=== PATIENT | female | born 1965 | race Caucasian/White ===

== ENCOUNTER 2019-02-22 09:15 | Outpatient (RCR) | payer OTHER, SELFPAY ==
--- NOTE | 2019-02-14 13:14 | HP.PCM_ITS ---
(1) Allergic contact dermatitis Status: Acute Current Visit: Yes Code(s): L23.9 - Allergic contact dermatitis, unspecified cause (2) Psoriasis Status: Chronic Current Visit: Yes Code(s): L40.9 - Psoriasis, unspecified (3) Bilateral lower extremity edema Status: Chronic Current Visit: Yes Code(s): R60.0 - Localized edema (4) PVD (peripheral vascular disease) Status: Chronic Current Visit: Yes Code(s): I73.9 - Peripheral vascular disease, unspecified History of Present Illness Date of Service: 02/14/19 Chief Complaint: Rash and drainage from legs History of Wound: Patient is a pleasant 53-year-old female who presents to the clinic today 02/14/2019 with complaint of rash, swelling, and drainage from bilateral legs, for [facility]. She was self- referred to the wound center. Patient reports she has been seeing dermatology for several years. She sees Dr. Malave (derm) in [place], [place]. He has been treating her with a topical ointment and topical lotion for chronic psoriasis of bilateral lower extremities. Approximately 3 months ago (~October 2018) patient developed increasing erythema and swelling in bilateral lower extremities. She saw her primary care provider, Dr. Art, regarding this complaint, and was given triple antibiotic ointment and instructed to apply this 1-2 times daily, and cover with gauze. As her symptoms persisted, she went to her impregnating tank operator's office and saw the nurse practitioner there, and was told to wear compression stockings. Patient is currently using SARA to bilateral lower extremities 1-2 times daily, and covering with gauze. In the last several weeks, she has had to change her dressings about 2-3 times daily due to weeping from bilateral lower extremities. She reports the drainage is clear and odorless. She denies any pain in her bilateral lower extremities, but reports intense itching of bilateral lower extremities. The patient otherwise denies any fever, chills, nausea, vomiting, or diarrhea. Aside from her psoriasis, patient denies any other chronic disease or illness. She has not had any recent lab work in the last couple of years. She reports she is a nondiabetic. Past Medical History Past Medical History: Chronic Problems Bilateral lower extremity edema (Chronic) Psoriasis (Chronic) PVD (peripheral vascular disease) (Chronic) Surgical History: dilatation and curettage Allergies/Adverse Reactions: Allergies levofloxacin [From Levaquin] Allergy (Verified 02/15/19 10:34) Other naproxen Allergy (Verified 02/15/19 10:34) Other Penicillins Allergy (Verified 02/15/19 10:34) Other Home Medications: Ambulatory Orders Medication Instructions Recorded Ibuprofen 200 mg PO PRN PRN 02/22/19 triamcinolone acetonide 0.5 % 1 applic TOPICAL .COMPLEX #45 g 02/22/19 topical ointment Smoking Status: Never smoker Tobacco Use: Non-smoker Review of Systems Constitutional: Denies: Chills, Fever, Night Sweats, Weakness, Weight Change Cardiovascular: Reports: Edema. Denies: Chest Pain, Palpitations Respiratory: Denies: Cough, Shortness of Breath, Wheezing Gastrointestinal: Denies: Diarrhea, Nausea, Vomiting Genitourinary: Denies: Dysuria, Hematuria Musculoskeletal: Denies: Joint stiffness, Joint swelling, Leg Pain, Muscle pain Skin: Reports: Pruritis, Rash, Skin Changes Neurological: Denies: Numbness, Tingling Endocrine: Denies: Heat/ Cold Intolerance, Polydipsia, Polyuria Hematologic/ Lymphatic: Denies: Easy Bruising, Easy Bleeding - Physical Exam General: Alert, Oriented x3, Cooperative, No apparent distress HEENT: Atraumatic, EOMI, Normocephalic Oral: Moist Mucosa Neck: Supple, No JVD, Trachea Midline Lungs: Clear to auscultation, Normal air movement, No rhonchi, No wheeze, No rales Cardiovascular: Regular rate, Regular Rhythm Abdomen: Bowel Sounds Present, Soft, Non Tender, Obese Extremities: No clubbing, No cyanosis, Capillary Refill Less than 3 Seconds, No Calf Tenderness, Edema - 1+ pitting edema b/l; varicosities of BLE, Peripheral Pulses Normal Skin: Rash Present - Psoriatic plaque of bilateral knees, silver and scaly in appearance. Suspected contact dermatitis of bilateral lower extremities. Contact dermatitis is near circumferential on bilateral legs. Contact dermatitis is bright red in color, with excoriation. Areas of contact dermatitis are clearly demarcated, with clear margins at sites where dressings were previously placed. There is 1+ pitting edema of bilateral lower extremities, with clear drainage from bilateral legs. No tenderness on palpation. Bilateral lower extremities are warm to touch. No foul odor, or purulent drainage. There are no open wounds or ulcerations., Excoriated Musculoskeletal: No Tenderness to Palpation of Joints or Extremities Neurological: Neuro grossly intact Psych/Mental Status: Normal Affect, Appropriate Assessment/Plan See plan below Active Problems Bilateral lower extremity edema (Chronic) Allergic contact dermatitis (Acute) Psoriasis (Chronic) PVD (peripheral vascular disease) (Chronic) Elevated hemoglobin A1c (Acute) Assessment: See above diagnoses Plan: No debridement performed today in clinic. Bilateral Unna boots applied in office today. At home wound-care instructions: Patient is to leave Unna boots in place until her nurse visit at the [facility] on Monday. She is instructed not to get Unna boots wet. If Unna boots begin to slip or fall down on legs, she is to contact the [facility] for further instructions. Off-loading: Patient is to keep bilateral legs elevated as much as possible. She is to avoid long periods of standing. She is instructed to sleep in a bed with feet at or above chest level. Diet: Patient encouraged to increase protein and vitamin C intake while taking caution to avoid high carbohydrate and/or sugar intake. Labs/cultures/imaging: Routine baseline labwork ordered. Vascular studies deferred for the time being, due to the extent of swelling, rash, and excoriation of bilateral lower extremities. Will consider the necessity of vascular studies as patient progresses. Follow-up: Return to the [facility] on Monday for a nurse visit to have Unna boots changed. Return to the clinic on 02/22/2019 for evaluation with provider. Contact the [facility]aling [facility] or follow-up sooner if you develop any worsening signs or symptoms. Code Visit Office Visits / Consults: [id number] OV L4 New
[2019-02-14 13:19] VITALS: BP 136/73; PULSE 79; RESP 18; TEMP 36.7; BMI 61.9
[2019-02-14 17:47] LABS: Hematocrit 47.5 % (37-47); Hemoglobin 14.4 g/dL (12.0-15.0); Hemoglobin A1c 6.5 % (4.2-6.3); Mean Corp Hgb Conc 30.3 g/dL (32-36); Mean Corpuscular Hgb 28.9 pg (27.0-32.0); Mean Corpuscular Volume 95.4 fL (81-99); Mean Platelet Vol. 10.2 fl (6.2-12.0); Platelet Count 397 K/mm3 (150-450); RBC Distribution Width CV 14.5 % (11.6-14.6); RBC Distribution Width SD 50.3 fl (35.1-43.9); Red Blood Count 4.98 M/mm3 (4.2-5.4); White Blood Count 7.3 K/mm3 (4.4-11.0)
[2019-02-14 18:00] LABS: ALB/GLOB Ratio 0.8 RATIO (0.9-2.4); AST(SGOT) 23 U/L (15-37); Alanine Aminotransfer ALT/SGPT 31 U/L (13-56); Albumin, Serum 3.7 g/dL (3.2-5.0); Alkaline Phosphatase 84 U/L (45-117); Anion Gap 5 (5-15); BUN 16 mg/dL (7-18); Calcium,Total 10.1 mg/dL (8.5-10.1); Chloride 103 mmol/L (98-107); Creatinine, Serum 0.94 mg/dL (0.55-1.02); EST Glomerular Filtration Rate 66 mL/min (>60); Erythrocyte Sedimentation Rate 10 mm/hr (0-30); Est Glom Filt Rate - Afr Amer 80 mL/min (>60); Globulin 4.5 g/dL (2.2-4.2); Glucose 90 mg/dL (74-106); Prealbumin 24.1 mg/dL (20.0-40.0); Protein, Total 8.2 g/dL (6.4-8.2); Sodium Level 139 mmol/L (136-145)
[2019-02-18 16:03] VITALS: BP 114/75; PULSE 69; RESP 18; TEMP 36.3; BMI 61.9
[2019-02-22 09:33] VITALS: BP 154/72; PULSE 89; RESP 18; TEMP 35.4; BMI 61.9
--- NOTE | 2019-02-22 10:00 | PN.PCM_ITS ---
(1) Allergic contact dermatitis Status: Acute Current Visit: Yes Code(s): L23.9 - Allergic contact dermatitis, unspecified cause (2) Psoriasis Status: Chronic Current Visit: Yes Code(s): L40.9 - Psoriasis, unspecified (3) Bilateral lower extremity edema Status: Chronic Current Visit: Yes Code(s): R60.0 - Localized edema (4) PVD (peripheral vascular disease) Status: Chronic Current Visit: Yes Code(s): I73.9 - Peripheral vascular disease, unspecified (5) Elevated hemoglobin A1c Status: Acute Current Visit: Yes Code(s): R73.09 - Other abnormal glucose Type of Wound Date of Service: 02/22/19 Chief Complaint: Rash and drainage from legs History of Wound: Patient is a pleasant 53-year-old female who presents to the clinic today 02/14/2019 with complaint of rash, swelling, and drainage from bilateral legs, for initial [facility] evaluation. She was self- referred to the wound center. Patient reports she has been seeing dermatology for several years. She sees Dr. Malave (derm) in [place], [place]. He has been treating her with a topical ointment and topical lotion for chronic psoriasis of bilateral lower extremities. Approximately 3 months ago (~October 2018) patient developed increasing erythema and swelling in bilateral lower extremities. She saw her primary care provider, Dr. Art, regarding this complaint, and was given triple antibiotic ointment and instructed to apply this 1-2 times daily, and cover with gauze. As her symptoms persisted, she went to her division human resources manager's office and saw the nurse practitioner there, and was told to wear compression stockings. Patient is currently using SARA to bilateral lower extremities 1-2 times daily, and covering with gauze. In the last several weeks, she has had to change her dressings about 2-3 times daily due to weeping from bilateral lower extremities. She reports the drainage is clear and odorless. She denies any pain in her bilateral lower extremities, but reports intense itching of bilateral lower extremities. The patient otherwise denies any fever, chills, nausea, vomiting, or diarrhea. Aside from her psoriasis, patient denies any other chronic disease or illness. She has not had any recent lab work in the last couple of years. She reports she is a nondiabetic. Progress of Wound: Areas of redness and excoriation are improving in severity, but remain relatively unchanged in size. Itching is slightly improved but still persistent. Patient has been compliant with use of Unna boots, and reports doing well with compression without any complications. Drainage from bilateral lower extremities has decreased, and legs have become more dry and scaly. The patient otherwise denies any fever, chills, nausea, vomiting, or diarrhea. Denies any signs of infection, including increasing pain, redness, swelling, or purulent/foul?smelling drainage from affected area. - Physical Exam Vital Signs Temp Pulse Resp BP 95.7 F L 89 18 154/72 H 02/22/19 09:33 02/22/19 09:33 02/22/19 09:33 02/22/19 09:33 General: Alert, Oriented x3, Cooperative, No apparent distress HEENT: Atraumatic, EOMI, Normocephalic Oral: Moist Mucosa Extremities: No clubbing, No cyanosis, Capillary Refill Less than 3 Seconds, No Calf Tenderness, Edema - Trace edema of bilateral lower extremities; varicosities of BLE, Peripheral Pulses Normal Skin: Rash Present - Psoriatic plaque of bilateral knees, silvery and scaly in appearance. Suspected contact dermatitis of bilateral lower extremities. Rash is pink to bright red in color, with excoriation. Rash and excoriation is near circumferential on bilateral legs. Areas of contact dermatitis are clearly demarcated with clear margins at sites where dressings were previously placed. No active drainage from either lower extremity. No tenderness on palpation. No warmth to touch, no foul odor, no purulent drainage. No open wounds or ulcerations. Skin is dry and flaky on bilateral lower extremities. Wound Measurements and Assessment WC - Nurse 1 - General Ulcer Measurement Start: 02/14/19 13:17 Freq: Status: Active Protocol: Activity Type Activity Date Activity User E-Sign Co-Sign Detail Recorded Client Recorded Date Recorded By Document 02/22/19 09:33 JF [id number] 02/22/19 09:34 JF 02/22/19 09:33 Wound Center Nurse 1 [Ulcer Assessment] #2 LLE CLUSTER -Combined with other wound No -Current Size (cm) - Length 0.1 -Current Size (cm) - Width 0.1 -Current Size (cm) - Depth 0.1 -Total Square Cm 0.01 -Photo Taken No -Epithelialization Large 67-100% #1 RLE CLUSTER -Combined with other wound No -Current Size (cm) - Length 0.1 -Current Size (cm) - Width 0.1 -Current Size (cm) - Depth 0.1 -Total Square Cm 0.01 -Photo Taken No -Epithelialization Large 67-100% [Edema Assessment] -Lower Limb Edema Present Yes -Right Calf (cm) 53.8 -Right Ankle (cm) 29.7 -Left Calf (cm) 55.7 -Left Ankle (cm) 32.2 WC - Nurse 2 - General Ulcer CM Notes Start: 02/14/19 13:17 Freq: Status: Active Protocol: Activity Type Activity Date Activity User E-Sign Co-Sign Detail Recorded Client Recorded Date Recorded By Document 02/22/19 09:44 CECIL [id number] 02/22/19 09:45 02/22/19 09:44 Wound Center Nurse 2 [Procedure/Treatment] #2 LLE CLUSTER -Correct Patient No -Correct Side, Site, Position No -Correct Procedure No -Procedure Performed No -Wound/Ulcer Outcome Not Healed #1 RLE CLUSTER -Correct Patient No -Correct Side, Site, Position No -Correct Procedure No -Procedure Performed No -Wound/Ulcer Outcome Not Healed [See Physician Procedure note for Specifics] Pain Scale: 0-10 Numeric [Pain] -Is Patient Pain Free? Yes Neurological: Neuro grossly intact Psych/Mental Status: Normal Affect, Appropriate Debridement Note Post-Debridement Measurements/Treatment WC - Nurse 2 - General Ulcer CM Notes Start: 02/14/19 13:17 Freq: Status: Active Protocol: Activity Type Activity Date Activity User E-Sign Co-Sign Detail Recorded Client Recorded Date Recorded By Document 02/14/19 14:04 DV [id number] 02/14/19 14:24 DV Document 02/22/19 09:44 JF [id number] 02/22/19 09:45 02/14/19 02/22/19 14:04 09:44 Wound Center Nurse 2 #2 LLE CLUSTER -Correct Patient No -Correct Side, Site, Position No -Correct Procedure No -Procedure Performed No -Wound/Ulcer Outcome Not Healed #1 RLE CLUSTER -Correct Patient No -Correct Side, Site, Position No -Correct Procedure No -Procedure Performed No -Wound/Ulcer Outcome Not Healed Pain Scale: 0-10 Numeric Is Patient Pain Free? Yes Yes Assessment/Plan Active Problems Bilateral lower extremity edema (Chronic) Allergic contact dermatitis (Acute) Psoriasis (Chronic) PVD (peripheral vascular disease) (Chronic) Elevated hemoglobin A1c (Acute) Assessment: See above diagnoses Plan: No debridement performed today in clinic. Bilateral stockinettes and compression with Anatoly bandages applied in office today, from toes to knee. At home wound-care instructions: Patient instructed to apply triamcinolone 0.5% ointment to bilateral lower extremities 1-2 times daily, covering with stockinette and Anatoly bandage for compression (eRx sent). Patient instructed to apply a thin layer to the affected areas. Patient may remove dressings to shower, and then reapply. Off-loading: Patient is to keep bilateral legs elevated as much as possible. She is to avoid long periods of standing. She is instructed to sleep in a bed with feet at or above chest level. Diet: Patient encouraged to increase protein and vitamin C intake while taking caution to avoid high carbohydrate and/or sugar intake. Discussed patient's A1c of 6.5% today at visit. Patient encouraged to follow-up with her primary care provider for further evaluation/monitoring/intervention. Labs/cultures/imaging: Routine baseline labwork viewed with patient. CRP elevated, A1c elevated. Recommended follow-up with PCP and division human resources manager. Vascular studies deferred for the time being, due to the extent of swelling, rash, and excoriation of bilateral lower extremities. Will consider the necessity of vascular studies as patient progresses. Follow-up: Return to the [facility] next for a follow-up visit. Contact the [facility]aling Center or follow-up sooner if you develop any new or worsening signs or symptoms. Code Visit Office Visits / Consults: [id number] OV L3 Est
== END 2019-02-26 23:59 ==
LOC: WC 09:15
PROVIDERS: Family Provider Family Medicine; PCP Family Medicine; Visit Provider Nurse Practitioner Family
DX: L23.9 Allergic contact dermatitis, unspecified cause (principal); L40.9 Psoriasis, unspecified; R60.0 Localized edema; I73.9 Peripheral vascular disease, unspecified; I87.2 Venous insufficiency (chronic) (peripheral); R79.82 Elevated C-reactive protein (CRP)
CPT/HCPCS: 29580; 36415; 80053; 83036; 84134; 85027; 85652; 86140; 99213; G0463

== ENCOUNTER 2019-03-15 09:00 | Outpatient (RCR) | payer OTHER, SELFPAY ==
[2019-02-27 01:08] VITALS: BP 154/72; PULSE 89; RESP 18; TEMP 35.4
[2019-02-28 14:29] VITALS: BP 145/82; PULSE 69; RESP 20; TEMP 36.3; BMI 61.9
--- NOTE | 2019-02-28 15:47 | WC ---
triamcinolone 1 % ointment applied to reddened areas coton liner applied then leah bilat applied
--- NOTE | 2019-02-28 17:07 | PCM.WC.PN ---
(1) Allergic contact dermatitis Status: Acute Current Visit: Yes Code(s): L23.9 - Allergic contact dermatitis, unspecified cause (2) PVD (peripheral vascular disease) Status: Chronic Current Visit: Yes Code(s): I73.9 - Peripheral vascular disease, unspecified (3) Psoriasis Status: Chronic Current Visit: Yes Code(s): L40.9 - Psoriasis, unspecified Type of Wound Date of Service: 02/28/19 Chief Complaint: Rash and drainage from legs History of Wound: Patient is a pleasant 53-year-old female who presents to the clinic 02/14/2019 with complaint of rash, swelling, and drainage from bilateral legs, for initial [facility] evaluation. She was self-referred to the wound center. Patient reports she has been seeing dermatology for several years. She sees Dr. Malave (derm) in [place], [place]. He has been treating her with a topical ointment and topical lotion for chronic psoriasis of bilateral lower extremities. Approximately 3 months ago (~October 2018) patient developed increasing erythema and swelling in bilateral lower extremities. She saw her primary care provider, Dr. Art, regarding this complaint, and was given triple antibiotic ointment and instructed to apply this 1-2 times daily, and cover with gauze. As her symptoms persisted, she went to her criminal justice teacher's office and saw the nurse practitioner there, and was told to wear compression stockings. Patient is currently using SARA to bilateral lower extremities 1-2 times daily, and covering with gauze. In the last several weeks, she has had to change her dressings about 2-3 times daily due to weeping from bilateral lower extremities. She reports the drainage is clear and odorless. She denies any pain in her bilateral lower extremities, but reports intense itching of bilateral lower extremities. The patient otherwise denies any fever, chills, nausea, vomiting, or diarrhea. Aside from her psoriasis, patient denies any other chronic disease or illness. She has not had any recent lab work in the last couple of years. She reports she is a nondiabetic. Progress of Wound: Areas of redness and excoriation are greatly improved. Itching has also resolved. Patient has been compliant with use of triamcinolone ointment and reports doing well with compression without any complications. Drainage from bilateral lower extremities has resolved, as well as dryness and scaliness. Patient brought her topical medications from home, which include triamcinolone 0.1% ointment, and HPR+ cream. The patient denies any fever, chills, nausea, vomiting, or diarrhea. Denies any signs of infection, including increasing pain, redness, swelling, or purulent/foul?smelling drainage from affected area. - Physical Exam Vital Signs Temp Pulse Resp BP 97.3 F L 69 20 H 145/82 H 02/28/19 14:29 02/28/19 14:29 02/28/19 14:29 02/28/19 14:29 General: Alert, Oriented x3, Cooperative, No apparent distress HEENT: Atraumatic, EOMI, Normocephalic Oral: Moist Mucosa Extremities: No clubbing, No cyanosis, No Calf Tenderness, Edema - Trace edema bilateral lower extremities, Peripheral Pulses Normal Skin: No breakdown, Excoriated - Excoriation is greatly improved, and nearly resolved. The affected areas of her bilateral lower extremities now demonstrate hemosiderin staining. There are no open wounds on bilateral lower extremities. There is no drainage from either lower extremity. Wound Measurements and Assessment WC - Nurse 1 - General Ulcer Measurement Start: 02/28/19 14:29 Freq: Status: Active Protocol: Activity Type Activity Date Activity User E-Sign Co-Sign Detail Recorded Client Recorded Date Recorded By Document 02/28/19 14:29 [facility] [id number] 02/28/19 14:34 [facility] 02/28/19 14:29 Wound Center Nurse 1 [Edema Assessment] -Lower Limb Edema Present Yes -Right Calf (cm) 52.6 -Right Ankle (cm) 29.6 -Left Calf (cm) 55.5 -Left Ankle (cm) 31.4 Musculoskeletal: No Tenderness to Palpation of Joints or Extremities Neurological: Neuro grossly intact Psych/Mental Status: Normal Affect, Appropriate Assessment/Plan Active Problems Allergic contact dermatitis (Acute) Psoriasis (Chronic) PVD (peripheral vascular disease) (Chronic) Assessment: See above diagnoses Plan: No debridement performed today in clinic due to the absence of any open wounds. Triamcinolone 0.1% ointment applied to bilateral legs. Bilateral stockinettes and compression with Anatoly bandages applied in office today, from toes to knee. At home wound-care instructions: Patient instructed to apply triamcinolone 0.5% ointment to bilateral lower extremities 1-2 times daily x 1 more week, covering with stockinette and Anatoly bandage for compression (eRx sent). Patient instructed to apply a thin layer to the affected areas. Patient may remove dressings to shower, and then reapply. After 1 week, she is to stop topical steroids and start HPR+ cream daily. Off-loading: Patient is to keep bilateral legs elevated as much as possible. She is to avoid long periods of standing. She is instructed to sleep in a bed with feet at or above chest level. Diet: Patient encouraged to increase protein and vitamin C intake while taking caution to avoid high carbohydrate and/or sugar intake. Previously discussed patient's A1c of 6.5% and patient encouraged to follow-up with her primary care provider for further evaluation/monitoring/intervention. Labs/cultures/imaging: Routine baseline labwork previously reviewed with patient. CRP elevated, A1c elevated. Recommended follow-up with PCP and criminal justice teacher. Patient has not yet scheduled an appointment with dermatology. Vascular and arterial studies ordered today. Follow-up: Return to the [facility] in 2 weeks for a follow-up visit. Contact the W[facility]aling Center or follow-up sooner if you develop any new or worsening signs or symptoms, or should you have any questions. Note: [employer] speech recognition levers lace machine operator software was used to create portions of this document. Sound-alike and misspelled words, as well as other levers lace machine operator errors may be contained in the documentation. Code Visit Office Visits / Consults: [id number] OV L3 Est
[2019-03-15 09:09] VITALS: BP 143/88; PULSE 85; RESP 16; TEMP 36; BMI 61.9
--- NOTE | 2019-03-15 13:06 | PN.PCM_ITS ---
(1) Excoriation of left lower leg Status: Acute Current Visit: Yes Qualifiers: Encounter type: initial encounter Qualified Code(s): S80.812A - Abrasion, left lower leg, initial encounter Code(s): S80.812A - Abrasion, left lower leg, initial encounter (2) Allergic contact dermatitis Status: Resolved Current Visit: Yes Code(s): L23.9 - Allergic contact dermatitis, unspecified cause (3) PVD (peripheral vascular disease) Status: Chronic Current Visit: Yes Code(s): I73.9 - Peripheral vascular disease, unspecified (4) Psoriasis Status: Chronic Current Visit: Yes Code(s): L40.9 - Psoriasis, unspecified Type of Wound Date of Service: 03/15/19 Chief Complaint: Rash and drainage from legs History of Wound: Patient is a pleasant 53-year-old female who presents to the clinic 02/14/2019 with complaint of rash, swelling, and drainage from bilateral legs, for initial [facility] evaluation. She was self-referred to the wound center. Patient reports she has been seeing dermatology for several years. She sees Dr. Malave (derm) in [place], [place]. He has been treating her with a topical ointment and topical lotion for chronic psoriasis of bilateral lower extremities. Approximately 3 months ago (~October 2018) patient developed increasing erythema and swelling in bilateral lower extremities. She saw her primary care provider, Dr. Art, regarding this complaint, and was given triple antibiotic ointment and instructed to apply this 1-2 times daily, and cover with gauze. As her symptoms persisted, she went to her special forces engineer sergeant's office and saw the nurse practitioner there, and was told to wear compression stockings. Patient is currently using SARA to bilateral lower extremities 1-2 times daily, and covering with gauze. In the last several weeks, she has had to change her dressings about 2-3 times daily due to weeping from bilateral lower extremities. She reports the drainage is clear and odorless. She denies any pain in her bilateral lower extremities, but reports intense itching of bilateral lower extremities. The patient otherwise denies any fever, chills, nausea, vomiting, or diarrhea. Aside from her psoriasis, patient denies any other chronic disease or illness. She has not had any recent lab work in the last couple of years. She reports she is a nondiabetic. Progress of Wound: Areas of redness and excoriation are greatly improved. Itching is also greatly improved. Patient has been compliant with course of triamcinolone ointment, which is now completed. She has resumed using HPR+ cream 1-2 times daily. She reports doing well with compression stockings without any complications. Drainage from bilateral lower extremities has resolved, mild dryness and scaliness of lower extremities persists. The patient was scheduled to have her vascular studies completed today, but changed her appointment because she felt it would conflict with her wound center appointment, despite our previous discussion that she should just arrive to the wound center as soon as possible following the completion of her vascular studies. They are now scheduled for next week. The patient has also not scheduled an appointment with her special forces engineer sergeant for follow-up, as previously discussed numerous times. The patient denies any fever, chills, nausea, vomiting, or diarrhea. Denies any signs of infection, including increasing pain, redness, swelling, or purulent/foul?smelling drainage from affected area. She does have a small area of excoriation to her left posterior lower leg, which she reports developed yesterday. - Physical Exam Vital Signs Temp Pulse Resp BP 96.8 F L 85 16 143/88 H 03/15/19 09:09 03/15/19 09:09 03/15/19 09:09 03/15/19 09:09 General: Alert, Oriented x3, No apparent distress HEENT: Atraumatic, EOMI, Normocephalic Oral: Moist Mucosa Neck: Supple, Trachea Midline Lungs: Normal air movement Cardiovascular: Regular rate Extremities: No clubbing, No cyanosis, Capillary Refill Less than 3 Seconds, Edema - 1+ pitting edema in bilateral lower extremities, Peripheral Pulses Normal - . Skin: Excoriated - Small area of excoriation to left posterior lower leg. No drainage, no warmth or tenderness to touch. Wound Measurements and Assessment WC - Nurse 1 - General Ulcer Measurement Start: 02/28/19 14:29 Freq: Status: Active Protocol: Activity Type Activity Date Activity User E-Sign Co-Sign Detail Recorded Client Recorded Date Recorded By Document 03/15/19 09:09 [facility] [id number] 03/15/19 09:11 [facility] 03/15/19 09:09 Wound Center Nurse 1 [Edema Assessment] -Lower Limb Edema Present Yes -Right Calf (cm) 52.5 -Right Ankle (cm) 28 -Left Calf (cm) 56 -Left Ankle (cm) 30.4 WC - Nurse 2 - General Ulcer CM Notes Start: 02/28/19 14:29 Freq: Status: Active Protocol: Activity Type Activity Date Activity User E-Sign Co-Sign Detail Recorded Client Recorded Date Recorded By Document 03/15/19 09:59 DV [id number] 03/15/19 10:00 DV 03/15/19 09:59 Pain Scale: 0-10 Numeric [Pain] -Is Patient Pain Free? Yes Musculoskeletal: No Tenderness to Palpation of Joints or Extremities Neurological: Neuro grossly intact Psych/Mental Status: Normal Affect, Appropriate Debridement Note Post-Debridement Measurements/Treatment WC - Nurse 2 - General Ulcer CM Notes Start: 02/28/19 14:29 Freq: Status: Active Protocol: Activity Type Activity Date Activity User E-Sign Co-Sign Detail Recorded Client Recorded Date Recorded By Document 03/15/19 09:59 DV [id number] 03/15/19 10:00 DV 03/15/19 09:59 Pain Scale: 0-10 Numeric Is Patient Pain Free? Yes Assessment/Plan Active Problems Psoriasis (Chronic) PVD (peripheral vascular disease) (Chronic) Excoriation of left lower leg (Acute) Assessment: See above diagnoses Plan: No debridement performed today in clinic due to the absence of any open wounds. Small area of excoriation on left posterior lower leg covered with Adaptic. Compression stockings applied. At home wound-care instructions: Apply Adaptic dressing to area of excoriation on left posterior lower leg, change daily. Apply HPR+ cream to bilateral legs 2-3 times per day, avoiding area of excoriation. Patient may remove dressings to shower, and then reapply. Off- loading: Patient is to keep bilateral legs elevated as much as possible. She is to avoid long periods of standing or dangling legs. She is instructed to sleep in a bed with feet at or above chest level. Diet: Patient encouraged to increase protein and vitamin C intake while taking caution to avoid high carbohydrate and/or sugar intake. Previously discussed patient's A1c of 6.5% and patient encouraged to follow-up with her primary care provider for further evaluation/monitoring/intervention. Labs/cultures/imaging: Routine baseline labwork previously reviewed with patient. CRP elevated, A1c elevated. Recommended follow-up with PCP and special forces engineer sergeant. Patient has not yet scheduled an appointment with dermatology. Vascular studies ordered-- Patient re- scheduled for next week. Follow-up: Return to the Wound Healing Center in 2 weeks for a follow-up visit. Contact the Wound Healing Center or follow-up sooner if you develop any new or worsening signs or symptoms, or should you have any questions. Note: [employer] speech recognition assembler plastic boat software was used to create portions of this document. Sound-alike and misspelled words, as well as other assembler plastic boat errors may be contained in the documentation. Code Visit Office Visits / Consults: 12555 OV L3 Est
== END 2019-03-29 23:59 ==
LOC: WC 09:00
PROVIDERS: Family Provider Family Medicine; PCP Family Medicine; Visit Provider Nurse Practitioner Family
DX: I73.9 Peripheral vascular disease, unspecified (principal); L23.9 Allergic contact dermatitis, unspecified cause; L40.9 Psoriasis, unspecified; S80.812A Abrasion, left lower leg, initial encounter; X58.XXXA Exposure to other specified factors, initial encounter
CPT/HCPCS: 99213; G0463

== ENCOUNTER 2019-09-19 12:00 | Outpatient (RCR) | payer OTHER, SELFPAY ==
[2019-09-12 10:23] VITALS: BP 133/89; PULSE 82; RESP 16; TEMP 35.8; BMI 61.9
--- NOTE | 2019-09-12 12:35 | HP.PCM_ITS ---
(1) Ulcer of right lower extremity Status: Chronic Current Visit: Yes Qualifiers: Non-pressure ulcer stage: limited to breakdown of skin Qualified Code(s): L97.911 - Non-pressure chronic ulcer of unspecified part of right lower leg limited to breakdown of skin Code(s): L97.919 - Non-pressure chronic ulcer of unspecified part of right lower leg with unspecified severity (2) Elevated hemoglobin A1c Status: Chronic Current Visit: Yes Code(s): R73.09 - Other abnormal glucose (3) Bilateral lower extremity edema Status: Chronic Current Visit: Yes Code(s): R60.0 - Localized edema History of Present Illness Date of Service: 09/12/19 Chief Complaint: Non healing right leg ulcer History of Wound: Ms. Lopez is a 53-year-old who presents to the wound center due to nonhealing right lower extremity ulcer. Had a wound about 2 to 3 months ago, was seen by her primary care physician and started on antibiotics due to concern for infection. Patient however states that it worsened after the antibiotics and believes that she may have had a reaction to it. Has been applying bacitracin ointment with no significant improvement. At her last visit here, A1c done was 6.5 however she has had no follow-up and is currently not on any treatment for diabetes mellitus. Past Medical History Past Medical History: Chronic Problems Bilateral lower extremity edema (Chronic) Psoriasis (Chronic) PVD (peripheral vascular disease) (Chronic) Elevated hemoglobin A1c (Chronic) Ulcer of right lower extremity (Chronic) Surgical History: dilatation and curettage Allergies/Adverse Reactions: Allergies levofloxacin [From Levaquin] Allergy (Verified 02/15/19 10:34) Other naproxen Allergy (Verified 02/15/19 10:34) Other Penicillins Allergy (Verified 02/15/19 10:34) Other Home Medications: Ambulatory Orders Medication Instructions Recorded Ibuprofen 200 mg PO PRN PRN 02/22/19 triamcinolone acetonide 0.5 % 1 applic TOPICAL .COMPLEX #45 g 02/22/19 topical ointment Smoking Status: Never smoker Review of Systems Constitutional: Denies: Anorexia, Chills, Night Sweats, Malaise Eyes: Denies: Blurred vision, Pain, Redness HEENT: Denies: Difficulty Hearing, Difficulty Swallowing Cardiovascular: Denies: Chest Pain, Chest Pressure, Chest Tightness Respiratory: Denies: Cough, Hemoptysis Gastrointestinal: Denies: Abdominal Pain, Hematemesis, Vomiting Genitourinary: Denies: Hematuria Skin: Denies: Jaundice - Physical Exam Vital Signs Temp Pulse Resp BP 96.4 F L 82 16 133/89 H 09/12/19 10:23 09/12/19 10:23 09/12/19 10:23 09/12/19 10:23 General: Alert, Oriented x3, Cooperative, No apparent distress HEENT: Atraumatic, Normocephalic Oral: Moist Mucosa Lungs: Normal air movement Cardiovascular: Regular rate, Regular Rhythm, Normal S1, Normal S2 Abdomen: Non Tender, Obese Extremities: No edema, Edema Skin: Ulcer/ Wound Wound Measurements and Assessment WC - Nurse 1 - General Ulcer Measurement Start: 09/12/19 10:23 Freq: Status: Active Protocol: Activity Type Activity Date Activity User E-Sign Co-Sign Detail Recorded Client Recorded Date Recorded By Document 09/12/19 10:23 [id number] 09/12/19 10:36 09/12/19 10:23 Wound Center Nurse 1 [Ulcer Assessment] 3-right washburn cluster -Combined with other wound No -Current Size (cm) - Length 5 -Current Size (cm) - Width 5.0 -Current Size (cm) - Depth 0.1 -Total Square Cm 25.0 -Photo Taken Yes -Epithelialization Small 1-33% -Tunneling No -Undermining/Tunneling No -Circular Undermining No -Exudate Amt Medium -Exudate Type Serosanguineous -Wound Margin Flat & Intact -Granulation Amt Large (67-100%) -Granulation Quality Red -Slough/Fibrin Yes -Necrosis Amt Small (1-33%) -Necrotic Tissue Type Adherent Slough -Structure Exposed N/A -Texture (Bridgette-wound Skin Appearance) Assessed, Friable, Localized Edema -Moisture (Bridgette-wound Skin Appearance Assessed, ) Weeping -Color (Bridgette-wound Skin Appearance) Assessed, Hemosiderin Staining -Temperature (Bridgette-wound Skin No Abnormality Appearance) (Pt Warm) -Tenderness on Palpation (Bridgette-wound No Skin Appearance) -Ulcer Cleansing Wound Cleanser -Foul Odor after Cleansing No -Anesthetic Used 4% Lidocaine Solution [Edema Assessment] -Lower Limb Edema Present Yes -Right Calf (cm) 54.5 -Right Ankle (cm) 30.0 WC - Nurse 2 - General Ulcer CM Notes Start: 09/12/19 10:23 Freq: Status: Active Protocol: Activity Type Activity Date Activity User E-Sign Co-Sign Detail Recorded Client Recorded Date Recorded By Document 09/12/19 10:47 MW [id number] 09/12/19 10:56 MW 09/12/19 10:47 Wound Center Nurse 2 [Procedure/Treatment] 3-right washburn cluster -Time 10:52 -Correct Patient Yes -Correct Side, Site, Position Yes -Correct Procedure Yes -Procedure Performed Yes -Type of Procedure Debridement -Clinical Debridement Selective -Post Debridement Size (cm) - Length 9.0 -Post Debridement Size (cm) - Width 16.0 -Post Debridement Size (cm) - Depth 0.1 -Total Square Cm 144.00 -Wound/Ulcer Outcome Not Healed -Ulcer Cleansing Rinsed/ Irrigated with Saline -Foul Odor after Cleansing No -Bioengineered Tissue No -Bleeding Controlled with Pressure -Offloading No -Treatment Response Procedure Tolerated Well [See Physician Procedure note for Specifics] Pain Scale: 0-10 Numeric [Pain] -Is Patient Pain Free? Yes Musculoskeletal: No Muscle Wasting Neurological: Cranial nerves II-XII grossly intact Psych/Mental Status: Normal Affect Debridement Note Post-Debridement Measurements/Treatment WC - Nurse 2 - General Ulcer CM Notes Start: 09/12/19 10:23 Freq: Status: Active Protocol: Activity Type Activity Date Activity User E-Sign Co-Sign Detail Recorded Client Recorded Date Recorded By Document 09/12/19 10:47 MW [id number] 09/12/19 10:56 MW 09/12/19 10:47 Wound Center Nurse 2 3-right washburn cluster -Time 10:52 -Correct Patient Yes -Correct Side, Site, Position Yes -Correct Procedure Yes -Procedure Performed Yes -Type of Procedure Debridement -Clinical Debridement Selective -Post Debridement Size (cm) - Length 9.0 -Post Debridement Size (cm) - Width 16.0 -Post Debridement Size (cm) - Depth 0.1 -Total Square Cm 144.00 -Wound/Ulcer Outcome Not Healed -Ulcer Cleansing Rinsed/ Irrigated with Saline -Foul Odor after Cleansing No -Bioengineered Tissue No -Bleeding Controlled with Pressure -Offloading No -Treatment Response Procedure Tolerated Well Pain Scale: 0-10 Numeric Is Patient Pain Free? Yes Wound debrided: Right lower extremity Type of Debridement: Selective debridement Anesthesia Used: 4% Lidocaine Solution Depth: Down to and including healthy tissue Percentage of wound debrided: 100 Instrument Used: 5mm curette Tissue Removed: Devitalized tissue Severity: Limited To Skin Breakdown Amount of bleeding with debridement: Mild Bleeding Controlled with: Pressure Patient tolerated procedure well Assessment/Plan Active Problems Bilateral lower extremity edema (Chronic) Elevated hemoglobin A1c (Chronic) Ulcer of right lower extremity (Chronic) Assessment: Same as above Plan: Debridement done as documented above, procedure was well-tolerated. Cultures taken due to chronicity. Repeat A1c, CBC and CMP also ordered. For now, Aquacel extra, ABD and 3M wrap for edema management. Follow-up on Monday for nurse visit and in 1 week with me. Leg elevation, increase protein intake and exercise as tolerated also discussed. Her questions were answered and she was advised to call with any further questions or concerns. This note was generated with [employer] dictation software. It may contain incorrect words, spelling, and punctuation that were not noted in checking the note before signing. Multi Select Codes - Visit Charges Office Visit/Consults: 93096 OV L4 New - Integumentary Integumentary CPT Codes: 57811 Nancy subq tissue 20 sq cm/< - Superficial debridement completed today. Additional square centimeters debrided.
[2019-09-12 13:35] LABS: Absolute Lymphocyte Count 1.28 X10^3/uL (0.83-4.51); Absolute Neutrophil Count 4.9 X10^3/uL (2.0-7.7); Basophil# 0.06 X10^3/uL; Basophil% 0.9 % (0-1); Eosinophil# 0.19 X10^3/uL; Eosinophils% 2.7 % (0-5); Hematocrit 48.2 % (37-47); Hemoglobin 14.9 g/dL (12.0-15.0); Lymphocyte # 1.28 X10^3/ul (4.0); Lymphocyte % 18.3 % (19-41); Mean Corp Hgb Conc 30.9 g/dL (32-36); Mean Corpuscular Hgb 30.7 pg (27.0-32.0); Mean Corpuscular Volume 99.4 fL (81-99); Mean Platelet Vol. 10.5 fl (6.2-12.0); Monocyte# 0.53 X10^3/uL; Monocyte% 7.6 % (0-10); NRBC Flagged by Analyzer 0 % (0-5); Neutrophil # 4.91 X10^3/uL (2.7-7.7); Neutrophil % 70.4 % (47-70); Platelet Count 323 K/mm3 (150-450); RBC Distribution Width CV 14.5 % (11.6-14.6); RBC Distribution Width SD 52.3 fl (35.1-43.9); Red Blood Count 4.85 M/mm3 (4.2-5.4)
[2019-09-12 13:53] LABS: ALB/GLOB Ratio 0.9 RATIO (0.9-2.4); AST(SGOT) 17 U/L (15-37); Alanine Aminotransfer ALT/SGPT 33 U/L (13-56); Albumin, Serum 3.6 g/dL (3.2-5.0); Alkaline Phosphatase 95 U/L (45-117); Anion Gap 3 (5-15); BUN 23 mg/dL (7-18); BUN/Creat Ratio 27.7 RATIO (10-20); Calcium,Total 9.9 mg/dL (8.5-10.1); Chloride 107 mmol/L (98-107); Creatinine, Serum 0.83 mg/dL (0.55-1.02); EST Glomerular Filtration Rate 76 mL/min (>60); Est Glom Filt Rate - Afr Amer 92 mL/min (>60); Globulin 4.1 g/dL (2.2-4.2); Glucose 93 mg/dL (74-106); Potassium 4.2 mmol/L (3.5-5.1); Protein, Total 7.7 g/dL (6.4-8.2); Sodium Level 139 mmol/L (136-145)
[2019-09-12 14:05] LABS: Hemoglobin A1c 6.2 % (3.8-5.6)
--- NOTE | 2019-09-19 12:49 | PCM.WC.PN ---
(1) Ulcer of right lower extremity Status: Chronic Current Visit: Yes Qualifiers: Non-pressure ulcer stage: limited to breakdown of skin Qualified Code(s): L97.911 - Non-pressure chronic ulcer of unspecified part of right lower leg limited to breakdown of skin Code(s): L97.919 - Non-pressure chronic ulcer of unspecified part of right lower leg with unspecified severity (2) Elevated hemoglobin A1c Status: Chronic Current Visit: Yes Code(s): R73.09 - Other abnormal glucose (3) Bilateral lower extremity edema Status: Chronic Current Visit: Yes Code(s): R60.0 - Localized edema Type of Wound Date of Service: 09/19/19 Chief Complaint: Non healing right leg ulcer History of Wound: Ms. Lopez is a 53-year-old who presents to the wound center due to nonhealing right lower extremity ulcer. Had a wound about 2 to 3 months ago, was seen by her primary care physician and started on antibiotics due to concern for infection. Patient however states that it worsened after the antibiotics and believes that she may have had a reaction to it. Has been applying bacitracin ointment with no significant improvement. At her last visit here, A1c done was 6.5 however she has had no follow-up and is currently not on any treatment for diabetes mellitus. Progress of Wound: Telehealth visit conducted today. Patient's recently tested for COVID and is awaiting result. His family was advised to quadrant time. Patient took of her 3M wraps on Monday. Per patient, no significant improvement. Still has edema. She denies any other concerns. - Physical Exam Vital Signs Temp Pulse Resp BP 96.4 F L 82 16 133/89 H 09/12/19 10:23 09/12/19 10:23 09/12/19 10:23 09/12/19 10:23 General: Alert, Oriented x3, Cooperative, No apparent distress HEENT: Atraumatic, Normocephalic Oral: Moist Mucosa Neck: Supple Skin: Ulcer/ Wound Musculoskeletal: No Muscle Wasting Neurological: Cranial nerves II-XII grossly intact Psych/Mental Status: Normal Affect Debridement Note Post-Debridement Measurements/Treatment WC - Nurse 2 - General Ulcer CM Notes Start: 09/12/19 10:23 Freq: Status: Active Protocol: Activity Type Activity Date Activity User E-Sign Co-Sign Detail Recorded Client Recorded Date Recorded By Document 09/12/19 10:47 MW [id number] 09/12/19 10:56 MW 09/12/19 10:47 Wound Center Nurse 2 3-right washburn cluster -Time 10:52 -Correct Patient Yes -Correct Side, Site, Position Yes -Correct Procedure Yes -Procedure Performed Yes -Type of Procedure Debridement -Clinical Debridement Selective -Post Debridement Size (cm) - Length 9.0 -Post Debridement Size (cm) - Width 16.0 -Post Debridement Size (cm) - Depth 0.1 -Total Square (cm) 144.00 -Wound/Ulcer Outcome Not Healed -Ulcer Cleansing Rinsed/ Irrigated with Saline -Foul Odor after Cleansing No -Bioengineered Tissue No -Bleeding Controlled with Pressure -Offloading No -Treatment Response Procedure Tolerated Well Pain Scale: 0-10 Numeric Is Patient Pain Free? Yes No debridement was completed today - Telehealth visit. Assessment/Plan Active Problems Bilateral lower extremity edema (Chronic) Elevated hemoglobin A1c (Chronic) Ulcer of right lower extremity (Chronic) Assessment: Same as above Plan: Telehealth visit conducted today using [employer] due to event as above. No debridement was completed. Per patient, there has been no significant improvement. Has been applying wet-to-dry dressings. Will send supplies for Aquacel. Apply daily with gauze. Prescription for Doxycycline also sent per culture and sensitivity. Anatoly wraps for edema management. Continue leg elevation, increase protein intake and exercise as tolerated. Labs discussed with her. She was advised to follow-up with her PCP for borderline diabetes management. Her questions were answered and she was advised to call with any further questions or concerns. Follow-up in a week. This note was generated with [employer] dictation software. It may contain incorrect words, spelling, and punctuation that were not noted in checking the note before signing. Office Visits / Consults: 34743 OV L3 Est - Approximately 15 minutes spent during daily video visit ( Daniel payne ) today.
--- NOTE | 2019-09-20 14:02 | WC ---
Prescription for Doxycycline 100mg PO BID X 7 days was called in to [facility] Valerie [phone] Patient is aware of the prescription
== END 2019-09-27 23:59 ==
LOC: WC 12:00
PROVIDERS: PCP Family Medicine; Referring Provider Internal Medicine; Visit Provider Internal Medicine
DX: I73.9 Peripheral vascular disease, unspecified (principal); L97.811 Non-pressure chronic ulcer of other part of right lower leg limited to breakdown of skin; R73.09 Other abnormal glucose; R60.0 Localized edema; L40.9 Psoriasis, unspecified
CPT/HCPCS: 29581; 80053; 83036; 85025; 87070; 87075; 87077; 87186; 87205; 97597; 97598; 99213; G0463

== ENCOUNTER 2019-10-23 13:00 | Outpatient (RCR) | payer OTHER, SELFPAY ==
[2019-09-12 10:23] VITALS: BMI 61.9
[2019-09-28 00:41] VITALS: BP 133/89; PULSE 82; RESP 16; TEMP 35.8
[2019-10-02 13:53] VITALS: BP 150/85; PULSE 82; RESP 18; TEMP 36.4; BMI 61.9
--- NOTE | 2019-10-02 15:48 | HP.PCM_ITS ---
(1) Ulcer of right lower extremity, limited to breakdown of skin Status: Acute Code(s): L97.911 - Non-pressure chronic ulcer of unspecified part of right lower leg limited to breakdown of skin (2) Bilateral lower extremity edema Status: Chronic Code(s): R60.0 - Localized edema (3) PVD (peripheral vascular disease) Status: Chronic Code(s): I73.9 - Peripheral vascular disease, unspecified (4) Venous insufficiency (chronic) (peripheral) Status: Chronic Code(s): I87.2 - Venous insufficiency (chronic) (peripheral) History of Present Illness Date of Service: 10/02/19 Chief Complaint: right leg ulcer History of Wound: Ms. Lopez is a 53-year-old who presents to the wound center due to nonhealing right lower extremity ulcer. Had a wound about 2 to 3 months ago, was seen by her primary care physician and started on antibiotics due to concern for infection. She has been seen previously by different wound care center provider. She has chronic edema that has been difficult to manage. She is been applying Aquacel Ag to the legs reports decreased drainage. She completed a course of doxycycline. She denies fever, chill, nausea, vomiting. Her pain is decreased to her leg as well. She is also been recently worked up for diabetes and it is noted her last hemoglobin A1c level last month was 6.2%. Past Medical History Past Medical History: Chronic Problems Bilateral lower extremity edema (Chronic) Psoriasis (Chronic) PVD (peripheral vascular disease) (Chronic) Elevated hemoglobin A1c (Chronic) Ulcer of right lower extremity (Chronic) Venous insufficiency (chronic) (peripheral) (Chronic) Surgical History: dilatation and curettage Allergies/Adverse Reactions: Allergies levofloxacin [From Levaquin] Allergy (Verified 02/15/19 10:34) Other naproxen Allergy (Verified 02/15/19 10:34) Other Penicillins Allergy (Verified 02/15/19 10:34) Other Home Medications: Ambulatory Orders Medication Instructions Recorded Ibuprofen 200 mg PO PRN PRN 02/22/19 triamcinolone acetonide 0.5 % 1 applic TOPICAL .COMPLEX #45 g 02/22/19 topical ointment Smoking Status: Never smoker Review of Systems Constitutional: Denies: Chills, Fever Cardiovascular: Reports: Edema. Denies: Claudication Gastrointestinal: Denies: Nausea, Vomiting Skin: Reports: Skin Changes, Wounds - Physical Exam Vital Signs Temp Pulse Resp BP 97.6 F L 82 18 150/85 H 10/02/19 13:53 10/02/19 13:53 10/02/19 13:53 10/02/19 13:53 General: Alert, Oriented x3, Cooperative, No apparent distress HEENT: Atraumatic Extremities: No cyanosis, Capillary Refill Less than 3 Seconds, No Calf Tenderness - Compartments soft to palpate bilateral lower extremities. Negative Jaime and Collins sign bilateral, Diminished Peripheral Pulses - Palpable DP pulses difficult to palpate PT pulses likely secondary to her edema, Edema - Bilateral lower extremity edema Skin: Ulcer/ Wound - No purulence, erythema, streaking, odor, maceration, eschar, deep tissue exposure, infection bilateral lower extremities. Her skin is atrophic and hairless. There is no blisters. Her skin discontinuity is only partial and this is a cluster that has some hemorrhagic tissue with no visualized clear subcutaneous tissue exposed. Mild serous weeping noted Wound Measurements and Assessment WC - Nurse 1 - General Ulcer Measurement Start: 10/02/19 13:53 Freq: Status: Active Protocol: Activity Type Activity Date Activity User E-Sign Co-Sign Detail Recorded Client Recorded Date Recorded By Document 10/02/19 13:[address] [facility] [id number] 10/02/19 14:[address] [facility] 10/02/19 13:53 Wound Center Nurse 1 [Ulcer Assessment] 3-right washburn cluster -Combined with other wound No -Current Size (cm) - Length 0.1 -Current Size (cm) - Width 0.1 -Current Size (cm) - Depth 0.1 -Total Square Cm 0.01 -Date of Last Picture (Recall this 10/02/19 field) -Photo Taken Yes -Epithelialization Large 67-100% -Tunneling No -Undermining/Tunneling No -Circular Undermining No -Texture (Bridgette-wound Skin Appearance) Assessed, Scarring -Moisture (Bridgette-wound Skin Appearance Assessed,Dry/ ) Scaly -Color (Bridgette-wound Skin Appearance) Assessed, Erythema -Temperature (Bridgette-wound Skin No Abnormality Appearance) (Pt Warm) -Tenderness on Palpation (Bridgette-wound No Skin Appearance) -Ulcer Cleansing SOAPY WATER -Foul Odor after Cleansing No [Edema Assessment] -Lower Limb Edema Present Yes -Right Calf (cm) 55 -Right Ankle (cm) 31 WC - Nurse 2 - General Ulcer CM Notes Start: 10/02/19 13:53 Freq: Status: Active Protocol: Activity Type Activity Date Activity User E-Sign Co-Sign Detail Recorded Client Recorded Date Recorded By Document 10/02/19 14:15 JF [id number] 10/02/19 14:25 JF 10/02/19 14:15 Wound Center Nurse 2 [Procedure/Treatment] 3-right washburn cluster -Correct Patient No -Correct Side, Site, Position No -Correct Procedure No -Procedure Performed No -Wound/Ulcer Outcome Not Healed [See Physician Procedure note for Specifics] Pain Scale: 0-10 Numeric [Pain] -Is Patient Pain Free? Yes Musculoskeletal: Muscle Wasting, Tenderness Neurological: Sensory exam intact to light touch and pain Psych/Mental Status: Normal Affect, Appropriate Debridement Note Post-Debridement Measurements/Treatment WC - Nurse 2 - General Ulcer CM Notes Start: 10/02/19 13:53 Freq: Status: Active Protocol: Activity Type Activity Date Activity User E-Sign Co-Sign Detail Recorded Client Recorded Date Recorded By Document 10/02/19 14:15 JF [id number] 10/02/19 14:25 10/02/19 14:15 Wound Center Nurse 2 3-right washburn cluster -Correct Patient No -Correct Side, Site, Position No -Correct Procedure No -Procedure Performed No -Wound/Ulcer Outcome Not Healed Pain Scale: 0-10 Numeric Is Patient Pain Free? Yes Wound debrided: leg Laterality: Right No debridement was completed today - Very superficial Assessment/Plan Assessment: Same as above Plan: I reviewed and discussed her case including performing a chart review. Debridement was not performed today. The nurse to measurements refer to the cluster of sub-hemorrhagic scattered tissue and is not a description of any debridement procedure. She has been changing dressing with Aquacel Ag and demonstrates improvement. Due to her progress, Adaptic was applied today with a secondary gauze dressing. She was advised to changes daily. Her prior wound cultures demonstrated Staphylococcus aureus growth and it is noted she completed a course of doxycycline. Additional antibiotics not recommended at this time it is appear she is responded well. To continue leg elevation, increase protein intake and exercise as tolerated, reduce salt in diet, and avoid idle standing or sitting. Her prior labs were discussed with her. She was advised to follow- up with her PCP for borderline diabetes management. I recommend work-up for potential underlying venous insufficiency with a venous Doppler examination with additional reflux evaluation. Her questions were answered and she was advised to call with any further questions or concerns. It is noted she has been using Anatoly wraps for compression management. To continue with compression garments that were applied today. Follow-up in a week.
[2019-10-07 14:03] VITALS: BP 155/82; PULSE 72; RESP 16; TEMP 36.6; BMI 61.9
[2019-10-09 14:28] VITALS: BP 142/88; PULSE 94; RESP 18; TEMP 36.2; BMI 61.9
--- NOTE | 2019-10-09 22:51 | PN.PCM_ITS ---
(1) Ulcer of right lower extremity, limited to breakdown of skin Status: Acute Code(s): L97.911 - Non-pressure chronic ulcer of unspecified part of right lower leg limited to breakdown of skin (2) Bilateral lower extremity edema Status: Chronic Code(s): R60.0 - Localized edema (3) PVD (peripheral vascular disease) Status: Chronic Code(s): I73.9 - Peripheral vascular disease, unspecified (4) Venous insufficiency (chronic) (peripheral) Status: Chronic Code(s): I87.2 - Venous insufficiency (chronic) (peripheral) (5) Localized edema Status: Chronic Code(s): R60.0 - Localized edema Type of Wound Date of Service: 10/09/19 Chief Complaint: right leg ulcer History of Wound: Ms. Lopez is a 53-year-old who presents to the wound center due to nonhealing right lower extremity ulcer. She completed a course of doxycycline. Last week she change the dressing with Adaptic. She denies fever, chill, nausea, vomiting. Her pain is decreased to her leg as well. She is also been recently worked up for diabetes and it is noted her last hemoglobin A1c level last month was 6.2%. She has already received CircAid compression dressings and has been wearing them. She complains that her wound drainage soiled the dressings every day and she is to wash them every day. These have to be dried to be air and she is not able to get this turned around on a daily basis. She asked if there is a different undergarment that she can use for intermittent use as needed. She is scheduled her artery and vein studies and has not had this completed yet. She denies odor or other infection. Progress of Wound: Right leg ulcer improving. Ongoing leg swelling - Physical Exam Vital Signs Temp Pulse Resp BP 97.1 F L 94 18 142/88 H 10/09/19 14:28 10/09/19 14:28 10/09/19 14:28 10/09/19 14:28 General: Alert, Oriented x3, Cooperative, No apparent distress HEENT: Atraumatic Extremities: No cyanosis, Capillary Refill Less than 3 Seconds, No Calf Tenderness - Negative Jaime and Collins sign bilateral. Compartment soft to palpate bilateral. No bogginess or fluctuance, Diminished Peripheral Pulses, Edema - Moderate to severe bilateral lower extremity (right worse than left) Skin: Ulcer/ Wound - There is very scant some hemorrhagic tissue noted with adjacent atrophic skin that has some inflammation including erythema and hyperpigmentation. There is no full-thickness skin discontinuity or subcutaneous tissue exposure noted. She has lack of hair. There is no warmth to palpate this site. Wound Measurements and Assessment WC - Nurse 1 - General Ulcer Measurement Start: 10/02/19 13:53 Freq: Status: Active Protocol: Activity Type Activity Date Activity User E-Sign Co-Sign Detail Recorded Client Recorded Date Recorded By Document 10/09/19 14:28 RB [id number] 10/09/19 14:38 RB 10/09/19 14:28 Wound Center Nurse 1 [Ulcer Assessment] 3-right washburn cluster -Combined with other wound No -Current Size (cm) - Length 6.5 -Current Size (cm) - Width 19 -Current Size (cm) - Depth 0.1 -Total Square Cm 123.5 -Tunneling No -Undermining/Tunneling No -Circular Undermining No -Exudate Amt Large -Exudate Type Serosanguineous -Wound Margin Flat & Intact -Granulation Amt Large (67-100%) -Granulation Quality Red -Slough/Fibrin Yes -Necrosis Amt Small (1-33%) -Necrotic Tissue Type Adherent Slough -Structure Exposed N/A -Texture (Bridgette-wound Skin Appearance) Assessed, Excoriation -Moisture (Bridgette-wound Skin Appearance Assessed ) -Color (Bridgette-wound Skin Appearance) Assessed -Temperature (Bridgette-wound Skin No Abnormality Appearance) (Pt Warm) -Tenderness on Palpation (Bridgette-wound No Skin Appearance) -Ulcer Cleansing Wound Cleanser -Foul Odor after Cleansing No -Anesthetic Used 4% Lidocaine Solution [Edema Assessment] -Lower Limb Edema Present Yes -Right Calf (cm) 58.7 -Right Ankle (cm) 31 WC - Nurse 2 - General Ulcer CM Notes Start: 10/02/19 13:53 Freq: Status: Active Protocol: Activity Type Activity Date Activity User E-Sign Co-Sign Detail Recorded Client Recorded Date Recorded By Document 10/09/19 14:53 CECIL [id number] 10/09/19 14:55 CECIL 10/09/19 14:53 Wound Center Nurse 2 [Procedure/Treatment] 3-right washburn cluster -Correct Patient No -Correct Side, Site, Position No -Correct Procedure No -Procedure Performed No -Wound/Ulcer Outcome Not Healed [See Physician Procedure note for Specifics] Pain Scale: 0-10 Numeric [Pain] -Is Patient Pain Free? Yes Musculoskeletal: No Tenderness to Palpation of Joints or Extremities, Muscle Wasting Neurological: Sensory exam intact to light touch and pain Psych/Mental Status: Normal Affect, Appropriate Debridement Note Post-Debridement Measurements/Treatment WC - Nurse 2 - General Ulcer CM Notes Start: 10/02/19 13:53 Freq: Status: Active Protocol: Activity Type Activity Date Activity User E-Sign Co-Sign Detail Recorded Client Recorded Date Recorded By Document 10/02/19 14:15 [id number] 10/02/19 14:25 Document 10/09/19 14:53 [id number] 10/09/19 14:55 10/02/19 10/09/19 14:15 14:53 Wound Center Nurse 2 3-right washburn cluster -Correct Patient No No -Correct Side, Site, Position No No -Correct Procedure No No -Procedure Performed No No -Wound/Ulcer Outcome Not Healed Not Healed Pain Scale: 0-10 Numeric Is Patient Pain Free? Yes Yes No debridement was completed today - Very superficial sub-hemorrhagic wound only Assessment/Plan Assessment: Same as above Plan: I reviewed and discussed her case with her again today. Debridement was not performed today. The nurse to measurements refer to the cluster of sub- hemorrhagic scattered tissue and is not a description of any debridement procedure. She has been changing dressing with Adaptic and demonstrates improvement. Her prior wound cultures demonstrated Staphylococcus aureus growth and it is noted she completed a course of doxycycline. Additional antibiotics are not recommended at this time it is appear she is responded well. To continue leg elevation, increase protein intake and exercise as tolerated, reduce salt in diet, and avoid idle standing or sitting. Her prior labs were discussed with her. She was advised to follow-up with her PCP for borderline diabetes management. I recommend work-up for potential underlying venous insufficiency with a venous Doppler examination with additional reflux evaluation and also noninvasive arterial studies to see if there are any arterial insufficiency. This is been scheduled. It is also noted that she has the CircAid compression wraps and she was advised that she appears to be using these properly. She can use the Tubigrip as an alternative underlying compression sleeve while the official CircAid undergarment is drying. These were fitted and dispensed today. She was advised to continue with diligent elevation and hourly muscular contraction. To reduce salt intake in the diet as well. To avoid idle standing and sitting. I also recommend nutritional referral to optimize healing, reduce weight, and reduce lower extremity edema. Her questions were answered and she was advised to call with any further questions or concerns. Follow-up in a week.
--- NOTE | 2019-10-14 10:18 | VDLE_ITS ---
Reason For Study: Edema RIGHT LEFT GSV is normal. GSV is normal. CFV is compressible, spontaneous, phasic, CFV is compressible, spontaneous, phasic, competent and demonstrates normal competent, and demonstrates normal augmentation. augmentation. FV is compressible, spontaneous, phasic, FV is compressible, spontaneous, phasic, competent and demonstrates normal competent and demonstrates normal augmentation. augmentation. POP V is compressible, spontaneous, phasic, POP V is compressible, spontaneous, phasic, competent and demonstrates normal competent and demonstrates normal augmentation. augmentation. T/P Trunk is compressible. T/P Trunk is compressible. PTV is compressible. PTV is compressible. SFJ is competent and measures 0.74cm x 0.89 SFJ is competent and measures 0.65cm x 0.75 cm. cm. GSV proximal thigh measures 0.69cm x 0.73 cm. GSV proximal thigh measures 0.66cm x 0.65 cm. GSV at knee measures 0.48cm x 0.49 cm. GSV at knee measures 0.43cm x 0.45 cm. GSV is competent throughout. GSV is competent throughout. SSV proximal calf is competent and measures SSV proximal calf is competent and measures 0.46cm x 0.48 cm. 0.26cm x 0.28 cm. Rt PeroV not visualized due to patient body Lt PeroV not visualized due to patient body habitus habitus Rt FV distal difficult to visualize due to pt Lt FV distal difficult to visualize due to pt body habitus. body habitus. Procedure Exam performed in department. The study was technically difficult. A preliminary report was called and/or faxed to [facility]. Interpretation Summary Deep veins of the lower extremities are bilaterally patent and compressible segmentally. There is no evidence of deep vein thrombosis on either side. Valvular competence appears intact within the proximal deep venous systems bilaterally. The great saphenous veins appear bilaterally patent and compressible segmentally. The peroneal veins were not visualized on either side due to the patient's body habitus. The distal femoral veins were difficult to visualize bilaterally due to the patient's body habitus. Sapheno-femoral junctions are bilaterally competent . Valvular competence appears to be intact segmentally within the great saphenous veins bilaterally. Small saphenous veins are patent and competent bilaterally. Ordering Physician: Ghislaine Rich Referring Physician: Eron Art Performed By: Rufina Murphy, TASHIA, RVT
--- NOTE | 2019-10-14 10:18 | ART_ITS ---
Reason For Study: Edema Procedure A bilateral lower extremity continuous wave Doppler with analog waveform analysis,segmental pressures,and ankle brachial indexes without exercise. Left Segmental Pressures Left brachial= 124mmHg. Left posterior tibial artery = 167mmHg. Left dorsalis pedis artery = 145mmHg. The left ankle waveforms are triphasic. Right Segmental Pressures Right brachial= 132mmHg. Right posterior tibial artery = 181mmHg. Right dorsalis pedis artery = 185mmHg. The right ankle waveforms are triphasic. Indices The right ankle brachial index by the posterior tibial artery is 1.37. The right ankle brachial index by the dorsalis pedis is 1.40. The left ankle brachial index by the posterior tibial artery is 1.27. The left ankle brachial index by the dorsalis pedis is 1.10. Interpretation Summary Triphasic Doppler waveforms are noted at ankle level bilaterally. Pulse-volume recordings appear satisfactory at all levels bilaterally. Resting ankle-brachial indices are normal bilaterally. There is no evidence of significant arterial occlusive disease in the lower extremities bilaterally. Ordering Physician: Ghislaine Rich Referring Physician: Lm Almanza Performed By: Rufina Murphy RDCS/RVT
[2019-10-23 13:21] VITALS: BP 153/85; PULSE 74; RESP 18; TEMP 36.3; BMI 61.9
--- NOTE | 2019-10-23 13:50 | PN.PCM_ITS ---
(1) Ulcer of right lower extremity, limited to breakdown of skin Status: Chronic Current Visit: Yes Code(s): L97.911 - Non-pressure chronic ulcer of unspecified part of right lower leg limited to breakdown of skin (2) Bilateral lower extremity edema Status: Chronic Current Visit: Yes Code(s): R60.0 - Localized edema (3) PVD (peripheral vascular disease) Status: Ruled-out Current Visit: Yes Code(s): I73.9 - Peripheral vascular disease, unspecified (4) Venous insufficiency (chronic) (peripheral) Status: Ruled-out Current Visit: Yes Code(s): I87.2 - Venous insufficiency (chronic) (peripheral) (5) Localized edema Status: Chronic Current Visit: Yes Code(s): R60.0 - Localized edema Type of Wound Date of Service: 10/23/19 Chief Complaint: right leg ulcer History of Wound: Ms. Lopez is a 53-year-old who presents to the wound center due to nonhealing right lower extremity ulcer. She completed a course of doxycycline. Last week she change the dressing with Adaptic. She denies fever, chill, nausea, vomiting. She is also been recently worked up for diabetes and it is noted her last hemoglobin A1c level last month was 6.2%. She has already received CircAid compression dressings and has been wearing them. She completed arterial and venous studies and would like to review the results today. She has been reducing the salt in her diet. Progress of Wound: Right leg ulcer improving. Ongoing leg swelling - Physical Exam Vital Signs Temp Pulse Resp BP 97.3 F L 74 18 153/85 H 10/23/19 13:21 10/23/19 13:21 10/23/19 13:21 10/23/19 13:21 General: Alert, Oriented x3, Cooperative, No apparent distress HEENT: Atraumatic Extremities: No cyanosis, Capillary Refill Less than 3 Seconds, No Calf Tenderness - Negative Jaime and Collins sign bilateral. Compartments are soft to palpate right lower extremity. No bogginess or fluctuance, Edema, Peripheral Pu lses Normal Skin: Ulcer/ Wound - No purulence, erythema, streaking, odor, infection. There is intermittent sub-hemorrhagic tissue with serous weeping. No necrosis or maceration. There is hyperpigmentation that is diffuse in a circumferential manner around the leg, right Wound Measurements and Assessment - Nurse 1 - General Ulcer Measurement Start: 10/02/19 13:53 Freq: Status: Active Protocol: Activity Type Activity Date Activity User E-Sign Co-Sign Detail Recorded Client Recorded Date Recorded By Document 10/23/19 13:21 [facility] [id number] 10/23/19 13:26 [facility] 10/23/19 13:21 Wound Center Nurse 1 [Ulcer Assessment] 3-right washburn cluster -Combined with other wound No -Current Size (cm) - Length 0.1 -Current Size (cm) - Width 0.1 -Current Size (cm) - Depth 0.1 -Total Square Cm 0.01 -Epithelialization Large 67-100% -Tunneling No -Undermining/Tunneling No -Circular Undermining No -Texture (Bridgette-wound Skin Appearance) Assessed, Excoriation, Scarring,Rash -Moisture (Bridgette-wound Skin Appearance Assessed,Dry/ ) Scaly -Color (Bridgette-wound Skin Appearance) Assessed, Erythema -Temperature (Bridgette-wound Skin No Abnormality Appearance) (Pt Warm) -Tenderness on Palpation (Bridgette-wound No Skin Appearance) -Ulcer Cleansing Rinsed/ Irrigated with Saline -Foul Odor after Cleansing No [Edema Assessment] -Lower Limb Edema Present Yes -Right Calf (cm) 55.8 -Right Ankle (cm) 31.3 -Left Calf (cm) 57.9 -Left Ankle (cm) 32.6 - Nurse 2 - General Ulcer CM Notes Start: 10/23/19 13:33 Freq: Status: Active Protocol: Activity Type Activity Date Activity User E-Sign Co-Sign Detail Recorded Client Recorded Date Recorded By Document 10/23/19 13:34 [id number] 10/23/19 13:35 10/23/19 13:34 Wound Center Nurse 2 [Procedure/Treatment] 3-right washburn cluster -Correct Patient No -Correct Side, Site, Position No -Correct Procedure No -Procedure Performed No -Post Debridement (cm) - Length 0.1 -Post Debridement (cm) - Width 0.1 -Post Debridement (cm) - Depth 0.1 -Total Square (Post) (cm) 0.01 -Area of Debridement (cm) - Length 0.1 -Area of Debridement (cm) - Width 0.1 -Total Square (Area) (cm) 0.01 -Tunneling No -Undermining/Tunneling No -Circular Undermining No -Wound/Ulcer Outcome Not Healed [See Physician Procedure note for Specifics] Pain Scale: 0-10 Numeric [Pain] -Is Patient Pain Free? Yes Musculoskeletal: No Tenderness to Palpation of Joints or Extremities Neurological: Sensory exam intact to light touch and pain Psych/Mental Status: Normal Affect, Appropriate Debridement Note Post-Debridement Measurements/Treatment WC - Nurse 2 - General Ulcer CM Notes Start: 10/23/19 13:33 Freq: Status: Active Protocol: Activity Type Activity Date Activity User E-Sign Co-Sign Detail Recorded Client Recorded Date Recorded By Document 10/23/19 13:34 [email or web address] [id number] 10/23/19 13:35 CEC[facility] 10/23/19 13:34 Wound Center Nurse 2 3-right washburn cluster -Correct Patient No -Correct Side, Site, Position No -Correct Procedure No -Procedure Performed No -Post Debridement (cm) - Length 0.1 -Post Debridement (cm) - Width 0.1 -Post Debridement (cm) - Depth 0.1 -Total Square (Post) (cm) 0.01 -Area of Debridement (cm) - Length 0.1 -Area of Debridement (cm) - Width 0.1 -Total Square (Area) (cm) 0.01 -Tunneling No -Undermining/Tunneling No -Circular Undermining No -Wound/Ulcer Outcome Not Healed Pain Scale: 0-10 Numeric Is Patient Pain Free? Yes Wound debrided: leg Laterality: Right No debridement was completed today Assessment/Plan Active Problems Bilateral lower extremity edema (Chronic) Ulcer of right lower extremity, limited to breakdown of skin (Acute) Localized edema (Chronic) Ulcer of right lower extremity with fat layer exposed (Acute) Ulcer of right lower extremity, limited to breakdown of skin (Chronic) Assessment: Same as above Plan: I reviewed and discussed her case with her again today. Debridement was not performed today. she has been changing dressing with Adaptic and demonstrates improvement. To wash daily with Dial soap and water. To continue to moisturize her adjacent skin with her prescription dermatology moisturizing lotion. Her prior wound cultures demonstrated Staphylococcus aureus growth and it is noted she completed a course of doxycycline. Additional antibiotics are not recommended at this time it is appear she is responded well. To continue leg elevation, increase protein intake and exercise as tolerated, reduce salt in diet, and avoid idle standing or sitting. Her prior labs were discussed with her. She was advised to follow-up with her PCP for borderline diabetes management. I recommend work-up for potential underlying venous insufficiency with a venous Doppler examination with additional reflux evaluation and also noninvasive arterial studies to see if there are any arterial insufficiency. Her venous studies were reviewed and she does not have venous insufficiency. Noninvasive arterial studies were also reviewed with triphasic waveforms and it is noted 1 of her AV high levels was 1.4. I do not recommend additional intervention at this time however is to be considered if recurrence continues due to this potential early calcification. It is also noted that she has the CircAid compression wraps and she was advised that she appears to be using these properly. She can use the Tubigrip as an alternative underlying compression sleeve while the official CircAid undergarment is drying. These were fitted and dispensed today. She was advised to continue with diligent elevation and hourly muscular contraction. To reduce salt intake in the diet as well. To avoid idle standing and sitting. I also recommend nutritional referral to optimize healing, reduce weight, and reduce lower extremity edema. Her questions were answered and she was advised to call with any further questions or concerns. Follow-up in a week.
== END 2019-10-28 23:59 ==
LOC: WC 13:00
PROVIDERS: PCP Family Medicine; Referring Provider Internal Medicine; Visit Provider Internal Medicine
DX: L97.911 Non-pressure chronic ulcer of unspecified part of right lower leg limited to breakdown of skin (principal); L97.912 Non-pressure chronic ulcer of unspecified part of right lower leg with fat layer exposed; R60.0 Localized edema; R73.03 Prediabetes; I73.9 Peripheral vascular disease, unspecified; M79.89 Other specified soft tissue disorders; I87.2 Venous insufficiency (chronic) (peripheral); L40.9 Psoriasis, unspecified
CPT/HCPCS: 29581; 93923; 93970; 99212; 99213; G0463

== ENCOUNTER 2019-11-18 13:38 | Outpatient (RCR) | payer OTHER, SELFPAY ==
[2019-11-06 14:17] VITALS: BMI 61.9
== END 2019-11-27 23:59 ==
LOC: NS 13:38
PROVIDERS: PCP Family Medicine; Visit Provider Podiatrist
DX: Z71.3 Dietary counseling and surveillance (principal); E66.01 Morbid (severe) obesity due to excess calories; Z68.44 Body mass index [BMI] 60.0-69.9, adult
CPT/HCPCS: 97802

== ENCOUNTER 2019-11-20 13:30 | Outpatient (RCR) | payer OTHER, SELFPAY ==
[2019-10-29 00:41] VITALS: BP 153/85; PULSE 74; RESP 18; TEMP 36.3
[2019-11-06 14:17] VITALS: BP 145/88; PULSE 86; RESP 16; TEMP 36.1; BMI 61.9
--- NOTE | 2019-11-06 15:45 | PN.PCM_ITS ---
(1) Bilateral lower extremity edema Status: Chronic Current Visit: Yes Code(s): R60.0 - Localized edema (2) PVD (peripheral vascular disease) Status: Ruled-out Current Visit: Yes Code(s): I73.9 - Peripheral vascular disease, unspecified (3) Overweight Status: Chronic Current Visit: Yes Code(s): E66.3 - Overweight (4) Diabetes mellitus with complication Status: Acute Current Visit: Yes Code(s): E11.8 - Type 2 diabetes mellitus with unspecified complications (5) Dermatitis of lower extremity Status: Acute Current Visit: Yes Code(s): L30.9 - Dermatitis, unspecified (6) Cellulitis Status: Acute Current Visit: Yes Qualifiers: Site of cellulitis: extremity Laterality: right Code(s): L03.90 - Cellulitis, unspecified Comment: work up in process. differential diagnosis is dermatitis Type of Wound Date of Service: 11/06/19 Chief Complaint: right leg ulcer History of Wound: Ms. Lopez is a 53-year-old who presents to the wound center due to nonhealing right lower extremity ulcer. She relates she felt this site was previously closed. There is still some weeping and drainage to the leg. She completed a course of doxycycline. She denies fever, chill, nausea, vomiting. She is also been recently worked up for diabetes and it is noted her last hemoglobin A1c level last month was 6.2%. She has already received CircAid compression dressings and has been wearing them. She completed arterial and venous studies as previously reviewed. She has been reducing the salt in her diet. She is amendable to seeing researcher specialist. Her leg is very itchy and her right leg is more swollen than the left. She tries to apply loti on to the adjacent area. Progress of Wound: Right leg ulcer stable. Ongoing leg swelling - Physical Exam Vital Signs Temp Pulse Resp BP 97 F L 86 16 145/88 H 11/06/19 14:17 11/06/19 14:17 11/06/19 14:17 11/06/19 14:17 General: Alert, Oriented x3, Cooperative HEENT: Atraumatic Extremities: No cyanosis, Capillary Refill Less than 3 Seconds, No Calf Tenderness, Diminished Peripheral Pulses, Edema Skin: Ulcer/ Wound - No purulence, streaking, odor. The right leg anterior skin is inflamed, hyperpigmented, with some erythema and skin peeling. There is a skin discontinuity with granular base with no deep tissue necrosis or exposure. The adjacent skin is atrophic and with lack of hair. There is no bogginess or fluctuance on palpation Wound Measurements and Assessment - Nurse 1 - General Ulcer Measurement Start: 11/06/19 14:16 Freq: Status: Active Protocol: Activity Type Activity Date Activity User E-Sign Co-Sign Detail Recorded Client Recorded Date Recorded By Document 11/06/19 14:17 [facility] [id number] 11/06/19 14:23 [facility] 11/06/19 14:17 Wound Center Nurse 1 [Ulcer Assessment] 3-right washburn cluster -Combined with other wound No -Current Size (cm) - Length 0.1 -Current Size (cm) - Width 0.1 -Current Size (cm) - Depth 0.1 -Total Square Cm 0.01 -Photo Taken No -Epithelialization Large 67-100% -Tunneling No -Undermining/Tunneling No -Circular Undermining No -Texture (Bridgette-wound Skin Appearance) Assessed, Excoriation, Scarring -Moisture (Bridgette-wound Skin Appearance Assessed ) -Color (Bridgette-wound Skin Appearance) Assessed, Erythema -Temperature (Bridgette-wound Skin No Abnormality Appearance) (Pt Warm) -Tenderness on Palpation (Bridgette-wound No Skin Appearance) -Ulcer Cleansing soapy water -Foul Odor after Cleansing No [Edema Assessment] -Lower Limb Edema Present Yes -Right Calf (cm) 56 -Right Ankle (cm) 30.6 - Nurse 2 - General Ulcer CM Notes Start: 11/06/19 14:16 Freq: Status: Active Protocol: Activity Type Activity Date Activity User E-Sign Co-Sign Detail Recorded Client Recorded Date Recorded By Document 11/06/19 14:32 [id number] 11/06/19 14:39 11/06/19 14:32 Wound Center Nurse 2 [Procedure/Treatment] 3-right washburn cluster -Time 14:37 -Correct Patient Yes -Correct Side, Site, Position Yes -Correct Procedure Yes -Procedure Performed Yes -Type of Procedure Debridement -Clinical Debridement Subcutaneous -Tissue Removed Subcutaneous -Post Debridement (cm) - Length 0.5 -Post Debridement (cm) - Width 0.5 -Post Debridement (cm) - Depth 0.1 -Total Square (Post) (cm) 0.25 -Area of Debridement (cm) - Length 0.5 -Area of Debridement (cm) - Width 0.5 -Total Square (Area) (cm) 0.25 -Tunneling No -Undermining/Tunneling No -Circular Undermining No -Wound/Ulcer Outcome Not Healed -Ulcer Cleansing Rinsed/ Irrigated with Saline -Foul Odor after Cleansing No -Bioengineered Tissue No -Bleeding Controlled with Pressure -Offloading No -Treatment Response Procedure Tolerated Well -Debridement - Subq, 1st 20sq cm Yes [See Physician Procedure note for Specifics] Pain Scale: 0-10 Numeric [Pain] -Is Patient Pain Free? Yes - Nurse 3 - General Ulcer D/C NN Start: 11/06/19 14:16 Freq: Status: Active Protocol: Activity Type Activity Date Activity User E-Sign Co-Sign Detail Recorded Client Recorded Date Recorded By Document 11/06/19 14:45 [facility] [id number] 11/06/19 14:47 [facility] 11/06/19 14:45 Wound Care Nurse 3 [Wound Dressing] 3-right washburn cluster -Ulcer Cleansing Rinsed/ Irrigated with Saline -Foul Odor after Cleansing No -Primary Dressing Applied NonAdherent Contact Layer -Primary Dressing Covered/Secured Dry Gauze & with Roll Gauze, Secured with Tape [Compression Applied] Left -Other pts own circaid Right -Tubular Bandage Single Layer -Size of Tubigrip Used Size F -Size F ($) 1 -Other pts own circaid , used tubi as understocking [Post Procedure Tolerated] -Treatment Response Procedure Tolerated Well Pain Scale: 0-10 Numeric [Pain] -Is Patient Pain Free? Yes - Visit Discharge [Visit Discharge Information] -Discharge Condition Stable -Ambulatory Status Ambulatory -Transportation Private Auto Musculoskeletal: Muscle Wasting, Tenderness Neurological: Sensory exam intact to light touch and pain Psych/Mental Status: Normal Affect, Appropriate Debridement Note Post-Debridement Measurements/Treatment - Nurse 2 - General Ulcer CM Notes Start: 11/06/19 14:16 Freq: Status: Active Protocol: Activity Type Activity Date Activity User E-Sign Co-Sign Detail Recorded Client Recorded Date Recorded By Document 11/06/19 14:32 [id number] 11/06/19 14:39 11/06/19 14:32 Wound Center Nurse 2 3-right washburn cluster -Time 14:37 -Correct Patient Yes -Correct Side, Site, Position Yes -Correct Procedure Yes -Procedure Performed Yes -Type of Procedure Debridement -Clinical Debridement Subcutaneous -Tissue Removed Subcutaneous -Post Debridement (cm) - Length 0.5 -Post Debridement (cm) - Width 0.5 -Post Debridement (cm) - Depth 0.1 -Total Square (Post) (cm) 0.25 -Area of Debridement (cm) - Length 0.5 -Area of Debridement (cm) - Width 0.5 -Total Square (Area) (cm) 0.25 -Tunneling No -Undermining/Tunneling No -Circular Undermining No -Wound/Ulcer Outcome Not Healed -Ulcer Cleansing Rinsed/ Irrigated with Saline -Foul Odor after Cleansing No -Bioengineered Tissue No -Bleeding Controlled with Pressure -Offloading No -Treatment Response Procedure Tolerated Well -Debridement - Subq, 1st 20sq cm Yes Pain Scale: 0-10 Numeric Is Patient Pain Free? Yes - Nurse 3 - General Ulcer D/C NN Start: 11/06/19 14:16 Freq: Status: Active Protocol: Activity Type Activity Date Activity User E-Sign Co-Sign Detail Recorded Client Recorded Date Recorded By Document 11/06/19 14:45 [facility] [id number] 11/06/19 14:47 [facility] 11/06/19 14:45 Wound Care Nurse 3 3-right washburn cluster -Ulcer Cleansing Rinsed/ Irrigated with Saline -Foul Odor after Cleansing No -Primary Dressing Applied NonAdherent Contact Layer -Primary Dressing Covered/Secured with Dry Gauze & Roll Gauze, Secured with Tape Left -Other pts own circaid Right -Tubular Bandage Single Layer -Size of Tubigrip Used Size F -Size F ($) 1 -Other pts own circaid , used tubi as understocking Treatment Response Procedure Tolerated Well Pain Scale: 0-10 Numeric Is Patient Pain Free? Yes WC - Visit Discharge Discharge Condition Stable Ambulatory Status Ambulatory Transportation Private Auto Wound debrided: anterior leg Laterality: Right Wound Grade/Stage: grade 1 Anesthesia Used: 5% Lidocaine Gel Depth: in the subcutaneous layer Percentage of wound debrided: 100 Instrument Used: #15 blade Tissue Removed: fibrous, devitalized subcutaneous, biofilm, slough Severity: Fat Layer Exposed Amount of bleeding with debridement: Mild Bleeding Controlled with: Pressure Patient tolerated procedure well Assessment/Plan Active Problems Bilateral lower extremity edema (Chronic) Ulcer of right lower extremity, limited to breakdown of skin (Acute) Localized edema (Chronic) Overweight (Chronic) Diabetes mellitus with complication (Acute) Dermatitis of lower extremity (Acute) Cellulitis (Acute) work up in process. differential diagnosis is dermatitis Assessment: Same as above Plan: I reviewed and discussed her case with her again today. Debridement was performed today as noted in the clinical panel. she has been changing dressing with Adaptic and demonstrates improvement. To wash daily with Dial soap and water. To continue to moisturize her adjacent skin with her prescription dermatology moisturizing lotion. Her prior wound cultures demonstrated Staphylococcus aureus growth and it is noted she completed a course of doxycycline. Additional antibiotics will only be considered pending her ongoing clinical progression and updated cultures that were obtained today. Aerobic, anaerobic, MRSA PCR cultures were obtained. Her clinical presentation specifically itching and skin peeling and also be consistent with a different type of dermatitis. A low-dose steroid cream will be considered pending the culture results and further punch biopsy or other work-up may also be considered. To continue leg elevation, increase protein intake and exercise as tolerated, reduce salt in diet, and avoid idle standing or sitting. Her prior labs were discussed with her. She was advised to follow-up with her PCP for borderline diabetes management. Her hemoglobin A1c was 6.2%. I recommend work- up for potential underlying venous insufficiency with a venous Doppler examination with additional reflux evaluation and also noninvasive arterial studies to see if there are any arterial insufficiency. Her venous studies were reviewed and she does not have venous insufficiency. Noninvasive arterial studies were also reviewed with triphasic waveforms and it is noted 1 of her AV high levels was 1.4. I do not recommend additional intervention at this time however is to be considered if recurrence continues due to this potential early calcification. It is also noted that she has the CircAid compression wraps and she was advised that she appears to be using these properly. She can use the Tubigrip as an alternative underlying compression sleeve while the official CircAid undergarment is drying. These were fitted and dispensed today. She was advised to continue with diligent elevation and hourly muscular contraction. To reduce salt intake in the diet as well. To avoid idle standing and sitting. I also recommend nutritional referral to optimize healing, reduce weight, and reduce lower extremity edema. A referral was provided. Her questions were answered and she was advised to call with any further questions or concerns. Follow-up in a week.
[2019-11-06 17:23] LABS: M R Staph aureus DNA By PCR Negative (Negative); Probe Check PASS; Specimen Processing Control PASS; Staph aureus DNA By PCR POSITIVE (Negative)
[2019-11-20 13:41] VITALS: BP 156/102; PULSE 72; RESP 18; TEMP 36.1; BMI 61.9
--- NOTE | 2019-11-20 15:13 | PCM.WC.PN ---
(1) Bilateral lower extremity edema Status: Chronic Current Visit: Yes Code(s): R60.0 - Localized edema (2) PVD (peripheral vascular disease) Status: Ruled-out Current Visit: Yes Code(s): I73.9 - Peripheral vascular disease, unspecified (3) Overweight Status: Chronic Current Visit: Yes Code(s): E66.3 - Overweight (4) Diabetes mellitus with complication Status: Acute Current Visit: Yes Code(s): E11.8 - Type 2 diabetes mellitus with unspecified complications (5) Dermatitis Status: Acute Current Visit: Yes Code(s): L30.9 - Dermatitis, unspecified (6) Psoriasis Status: Chronic Current Visit: Yes Code(s): L40.9 - Psoriasis, unspecified (7) Ulcer of right lower extremity Status: Resolved Current Visit: Yes Qualifiers: Code(s): L97.919 - Non-pressure chronic ulcer of unspecified part of right lower leg with unspecified severity Type of Wound Date of Service: 11/20/19 Chief Complaint: right leg ulcer History of Wound: Ms. Lopez is a 54-year-old who presents to the wound center due recently healed right leg ulcer. She denies drainage, fever, chill, nausea, vomiting. She has also attended her hat trimmer referral and is trying to reduce her overall weight and salt intake. She wears CircAid compression dressings and tries to elevate her legs at rest also. Her leg continues to have excessive skin peeling and discoloration. She has a history of psoriasis. Progress of Wound: Remains healed. Continued leg skin inflammation that is high risk for re-ulceration - Physical Exam Vital Signs Temp Pulse Resp BP 97.0 F L 72 18 156/102 H 11/20/19 13:41 11/20/19 13:41 11/20/19 13:41 11/20/19 13:41 General: Alert, Oriented x3, Cooperative, No apparent distress HEENT: Atraumatic Extremities: No cyanosis, Capillary Refill Less than 3 Seconds, No Calf Tenderness, Diminished Peripheral Pulses, Edema Skin: Ulcer/ Wound - Full epithelialization is noted and there is no longer an ulcer to the right leg. She does have hyperpigmentation, skin peeling and her skin is atrophic and hairless. Wound Measurements and Assessment WC - Nurse 1 - General Ulcer Measurement Start: 11/06/19 14:16 Freq: Status: Active Protocol: Activity Type Activity Date Activity User E-Sign Co-Sign Detail Recorded Client Recorded Date Recorded By Document 11/20/19 13:41 [id number] 11/20/19 13:44 11/20/19 13:41 Wound Center Nurse 1 [Ulcer Assessment] 3-right wsahburn cluster -Combined with other wound No -Current Size (cm) - Length 0.1 -Current Size (cm) - Width 0.1 -Current Size (cm) - Depth 0.1 -Total Square Cm 0.01 -Photo Taken No -Epithelialization None Present -Tunneling No -Undermining/Tunneling No -Circular Undermining No -Exudate Amt None Present -Wound Margin Distinct, Outline Attached -Granulation Amt Large (67-100%) -Granulation Quality Hyper- granulation,Red -Necrosis Amt None Present (0 %) -Necrotic Tissue Type Adherent Slough -Moisture (Bridgette-wound Skin Appearance Dry/Scaly ) -Color (Bridgette-wound Skin Appearance) Hemosiderin Staining -Temperature (Bridgette-wound Skin No Abnormality Appearance) (Pt Warm) -Tenderness on Palpation (Bridgette-wound No Skin Appearance) -Ulcer Cleansing Rinsed/ Irrigated with Saline -Foul Odor after Cleansing No -Anesthetic Used 4% Lidocaine Solution [Edema Assessment] -Lower Limb Edema Present Yes -Right Calf (cm) 56 -Right Ankle (cm) 30 WC - Nurse 2 - General Ulcer CM Notes Start: 11/06/19 14:16 Freq: Status: Active Protocol: Activity Type Activity Date Activity User E-Sign Co-Sign Detail Recorded Client Recorded Date Recorded By Document 11/20/19 14:03 [id number] 11/20/19 14:04 11/20/19 14:03 Wound Center Nurse 2 [Procedure/Treatment] 3-right washburn cluster -Correct Patient No -Correct Side, Site, Position No -Correct Procedure No -Procedure Performed No -Post Debridement (cm) - Length 0 -Post Debridement (cm) - Width 0 -Post Debridement (cm) - Depth 0 -Total Square (Post) (cm) 0 -Area of Debridement (cm) - Length 0 -Area of Debridement (cm) - Width 0 -Total Square (Area) (cm) 0 -Wound/Ulcer Outcome Healed- Epithelialized [See Physician Procedure note for Specifics] Pain Scale: 0-10 Numeric [Pain] -Is Patient Pain Free? Yes - Nurse 3 - General Ulcer D/C NN Start: 11/06/19 14:16 Freq: Status: Active Protocol: Activity Type Activity Date Activity User E-Sign Co-Sign Detail Recorded Client Recorded Date Recorded By Document 11/20/19 14:23 [facility] [id number] 11/20/19 14:24 [facility] 11/20/19 14:23 Wound Care Nurse 3 [Compression Applied] Left -Other pts own circaid Right -Other pts own circaid Vital Signs [Comments] -Comment no debridement today. Pain Scale: 0-10 Numeric [Pain] -Is Patient Pain Free? Yes - Visit Discharge [Visit Discharge Information] -Discharge Condition Stable -Ambulatory Status Ambulatory -Transportation Private Auto Musculoskeletal: No Tenderness to Palpation of Joints or Extremities, Muscle Wasting, - - No bogginess or fluctuance Debridement Note Post-Debridement Measurements/Treatment - Nurse 2 - General Ulcer CM Notes Start: 11/06/19 14:16 Freq: Status: Active Protocol: Activity Type Activity Date Activity User E-Sign Co-Sign Detail Recorded Client Recorded Date Recorded By Document 11/06/19 14:32 [id number] 11/06/19 14:39 Document 11/20/19 14:03 [id number] 11/20/19 14:04 11/06/19 11/20/19 14:32 14:03 Wound Center Nurse 2 3-right washburn cluster -Time 14:37 -Correct Patient Yes No -Correct Side, Site, Position Yes No -Correct Procedure Yes No -Procedure Performed Yes No -Type of Procedure Debridement -Clinical Debridement Subcutaneous -Tissue Removed Subcutaneous -Post Debridement (cm) - Length 0.5 0 -Post Debridement (cm) - Width 0.5 0 -Post Debridement (cm) - Depth 0.1 0 -Total Square (Post) (cm) 0.25 0 -Area of Debridement (cm) - Length 0.5 0 -Area of Debridement (cm) - Width 0.5 0 -Total Square (Area) (cm) 0.25 0 -Tunneling No -Undermining/Tunneling No -Circular Undermining No -Wound/Ulcer Outcome Not Healed Healed- Epithelialized -Ulcer Cleansing Rinsed/ Irrigated with Saline -Foul Odor after Cleansing No -Bioengineered Tissue No -Bleeding Controlled with Pressure -Offloading No -Treatment Response Procedure Tolerated Well -Debridement - Subq, 1st 20sq cm Yes Pain Scale: 0-10 Numeric Is Patient Pain Free? Yes Yes - Nurse 3 - General Ulcer D/C NN Start: 11/06/19 14:16 Freq: Status: Active Protocol: Activity Type Activity Date Activity User E-Sign Co-Sign Detail Recorded Client Recorded Date Recorded By Document 11/06/19 14:45 [facility] [id number] 11/06/19 14:47 BM Document 11/20/19 14:23 [facility] [id number] 11/20/19 14:24 [facility] 11/06/19 11/20/19 14:45 14:23 Wound Care Nurse 3 3-right washburn cluster -Ulcer Cleansing Rinsed/ Irrigated with Saline -Foul Odor after Cleansing No -Primary Dressing Applied NonAdherent Contact Layer -Primary Dressing Covered/Secured with Dry Gauze & Roll Gauze, Secured with Tape Left -Other pts own circaid pts own circaid Right -Tubular Bandage Single Layer -Size of Tubigrip Used Size F -Size F ($) 1 -Other pts own circaid pts own circaid , used tubi as understocking Treatment Response Procedure Tolerated Well Pain Scale: 0-10 Numeric Is Patient Pain Free? Yes Yes Vital Signs Comment no debridement today. WC - Visit Discharge Discharge Condition Stable Stable Ambulatory Status Ambulatory Ambulatory Transportation Private Auto Private Auto No debridement was completed today - Healed Assessment/Plan Active Problems Bilateral lower extremity edema (Chronic) Psoriasis (Chronic) Ulcer of right lower extremity, limited to breakdown of skin (Acute) Localized edema (Chronic) Overweight (Chronic) Diabetes mellitus with complication (Acute) Dermatitis of lower extremity (Acute) Dermatitis (Acute) Assessment: Same as above Plan: I reviewed and discussed her case with her again today. Debridement was performed today as noted in the clinical panel. she has been changing dressing with Adaptic and demonstrates improvement. To wash daily with Dial soap and water. To discontinue dressing and Adaptic wound care today at this time. To continue to moisturize her adjacent skin with her prescription dermatology moisturizing lotion. Her prior wound cultures demonstrated Staphylococcus aureus growth and it is noted she completed a course of doxycycline. Additional antibiotics will only be considered pending her ongoing clinical progression and updated cultures that were obtained previously. Aerobic, anaerobic, MRSA PCR cultures were obtained. Staphylococcus aureus growth was noted with no resistance or other pathological bacterial findings. This is consistent with skin julia. Her clinical presentation specifically itching and skin peeling and also be consistent with a different type of dermatitis. A low-dose steroid cream was provided today and I recommend she does not use this for more than a week; triamcinolone low-dose cream. To progress back into moisturizing lotion from her yardage tufting machine operator after that week is complete. I do not recommend recurrent steroid cream or oral steroid cream. To continue leg elevation, increase protein intake and exercise as tolerated, reduce salt in diet, and avoid idle standing or sitting. To continue to follow-up with her hat trimmer referral. Is going well so far. Her prior labs were discussed with her. She was advised to follow-up with her PCP for borderline diabetes management. Her hemoglobin A1c was 6.2%. I recommend work-up for potential underlying venous insufficiency with a venous Doppler examination with additional reflux evaluation and also noninvasive arterial studies to see if there are any arterial insufficiency. Her venous studies were reviewed and she does not have venous insufficiency. Noninvasive arterial studies were also reviewed with triphasic waveforms and it is noted 1 of her AV high levels was 1.4. I do not recommend additional intervention at this time however is to be considered if recurrence continues due to this potential early calcification. It is also noted that she has the CircAid compression wraps and she was advised that she appears to be using these properly. She can use the Tubigrip as an alternative underlying compression sleeve while the official CircAid undergarment is drying. She was advised to continue with diligent elevation and hourly muscular contraction. To reduce salt intake in the diet as well. To avoid idle standing and sitting. I also recommend nutritional referral to optimize healing, reduce weight, and reduce lower extremity edema. Her questions were answered and she was advised to call with any further questions or concerns. Follow-up in a week.
== END 2019-11-27 23:59 ==
LOC: WC 13:30
PROVIDERS: PCP Family Medicine; Referring Provider Internal Medicine; Visit Provider Internal Medicine
CPT/HCPCS: 11042; 87070; 87075; 87077; 87186; 87205; 87640; 99212; G0463

== ENCOUNTER 2019-12-02 14:08 | Outpatient (RCR) | payer OTHER, SELFPAY | END 2019-12-28 23:59 | LOC: NS 14:08 | PROVIDERS: PCP Family Medicine; Visit Provider Podiatrist | DX: Z71.3 Dietary counseling and surveillance (principal); E66.01 Morbid (severe) obesity due to excess calories; Z68.44 Body mass index [BMI] 60.0-69.9, adult | CPT/HCPCS: 97803 ==

== ENCOUNTER 2019-12-18 13:36 | Outpatient (RCR) | payer OTHER, SELFPAY ==
[2019-12-18 13:43] VITALS: BP 148/87; PULSE 70; RESP 18; TEMP 36.1; BMI 61.9
[2019-12-18 14:21] VITALS: BP 148/88
--- NOTE | 2019-12-18 14:22 | WC ---
adaptic and roll gauze applied to excoriated areas. pt states she will apply circaids when goes home today.
--- NOTE | 2019-12-18 15:36 | PN.PCM_ITS ---
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 Lopez is a 54-year-old who presents to the wound center due recently healed right leg ulcer. She denies drainage, fever, chill, nausea, vomiting. She has also attended her commercial title examiner referral and is trying to reduce her overall weight and salt intake. She wears CircAid compression dressings and tries to elevate her legs at rest also. She previously tried triamcinolone cream for a week and was not generally encouraged to continue longer than that by both me as well as her bean picker machine operator. She did have improvement of skin peeling however had a recent edema exacerbation and feels li ke her leg is getting irritated again. She is seeing a commercial title examiner and is trying to work on exercise by walking 10 minutes a day and improvement in diet to help with weight reduction. She relates she lost 4 pounds. Progress of Wound: New weeping noted at leg level - Physical Exam Vital Signs Temp Pulse Resp BP 97 F L 70 18 148/88 H 12/18/19 13:43 12/18/19 13:43 12/18/19 13:43 12/18/19 14:21 General: Alert, Oriented x3, Cooperative, No apparent distress HEENT: Atraumatic Extremities: No cyanosis, Capillary Refill Less than 3 Seconds, No Calf Tenderness, Diminished Peripheral Pulses, Edema, - - Compartments soft to palpate Skin: Ulcer/ Wound - No purulence, erythema, string, odor, infection. This breach in skin continuity to the right anterior leg which has some hemorrhagic tissue noted and scant serous moisture. There is no subcutaneous tissue exposed. Her skin has hyperpigmentation and chronic swelling and skin peeling Wound Measurements and Assessment WC - Nurse 1 - General Ulcer Measurement Start: 12/18/19 13:43 Freq: Status: Active Protocol: Activity Type Activity Date Activity User E-Sign Co-Sign Detail Recorded Client Recorded Date Recorded By Document 12/18/19 13:43 [facility] [id number] 12/18/19 13:49 [facility] 12/18/19 13:43 Wound Center Nurse 1 [Ulcer Assessment] 3-right washburn cluster -Combined with other wound No -Current Size (cm) - Length 0.1 -Current Size (cm) - Width 0.1 -Current Size (cm) - Depth 0.1 -Total Square Cm 0.01 -Epithelialization Large 67-100% -Texture (Bridgette-wound Skin Appearance) Assessed, Scarring -Moisture (Bridgette-wound Skin Appearance Assessed, ) Weeping -Color (Bridgette-wound Skin Appearance) Assessed, Erythema -Temperature (Bridgette-wound Skin No Abnormality Appearance) (Pt Warm) -Tenderness on Palpation (Bridgette-wound No Skin Appearance) -Ulcer Cleansing SOAPY WATER -Foul Odor after Cleansing No -Anesthetic Used 4% Lidocaine Solution [Edema Assessment] -Lower Limb Edema Present Yes -Right Calf (cm) 57.8 -Right Ankle (cm) 32.8 - Nurse 2 - General Ulcer CM Notes Start: 12/18/19 13:43 Freq: Status: Active Protocol: Activity Type Activity Date Activity User E-Sign Co-Sign Detail Recorded Client Recorded Date Recorded By Document 12/18/19 14:03 [id number] 12/18/19 14:06 12/18/19 14:03 Wound Center Nurse 2 [Procedure/Treatment] 3-right washburn cluster -Correct Patient No -Correct Side, Site, Position No -Correct Procedure No -Procedure Performed No -Post Debridement (cm) - Length 0 -Post Debridement (cm) - Width 0 -Post Debridement (cm) - Depth 0 -Total Square (Post) (cm) 0 -Area of Debridement (cm) - Length 0 -Area of Debridement (cm) - Width 0 -Total Square (Area) (cm) 0 -Wound/Ulcer Outcome Healed- Epithelialized [See Physician Procedure note for Specifics] Pain Scale: 0-10 Numeric [Pain] -Is Patient Pain Free? Yes - Nurse 3 - General Ulcer D/C NN Start: 12/18/19 13:43 Freq: Status: Active Protocol: Activity Type Activity Date Activity User E-Sign Co-Sign Detail Recorded Client Recorded Date Recorded By Document 12/18/19 14:21 RB [id number] 12/18/19 14:23 RB 12/18/19 14:21 Wound Care Nurse 3 [Post Procedure Tolerated] -Treatment Response Procedure Tolerated Well Vital Signs [Blood Pressure] -Blood Pressure (90/60-120/80) 148/88 H -Blood Pressure Mean (mm Hg) 108 -Source Monitor -Position Sitting -Blood Pressure Location Left Arm Pain Scale: 0-10 Numeric [Pain] -Is Patient Pain Free? Yes Teaching: Wound Center [Wound Center Education] (Items with an * have Printed Materials Available- Please identify what is given to patient under the Teaching materials given to patient and caregiver Section. Compression Wraps & Stockings -Person Taught Patient -Teaching Method Discussion -Response to teaching Verbalize understanding WC - Visit Discharge [Visit Discharge Information] -Discharge Condition Stable -Ambulatory Status Ambulatory -Transportation Private Auto -Medication Reconcilliation completed No & provided to patient/care provider -Clinical Summary of Care Provided Yes 12/18/19 14:22 Wound Center by Trice Ontiveros and roll gauze applied to excoriated areas. pt states she will apply circaids when goes home today. Initialized on 12/18/19 14:22 - END OF NOTE Musculoskeletal: Muscle Wasting Neurological: Sensory exam intact to light touch and pain Psych/Mental Status: Normal Affect, Appropriate Debridement Note Post-Debridement Measurements/Treatment - Nurse 2 - General Ulcer CM Notes Start: 12/18/19 13:43 Freq: Status: Active Protocol: Activity Type Activity Date Activity User E-Sign Co-Sign Detail Recorded Client Recorded Date Recorded By Document 12/18/19 14:03 CECIL [id number] 12/18/19 14:06 CECIL 12/18/19 14:03 Wound Center Nurse 2 3-right washburn cluster -Correct Patient No -Correct Side, Site, Position No -Correct Procedure No -Procedure Performed No -Post Debridement (cm) - Length 0 -Post Debridement (cm) - Width 0 -Post Debridement (cm) - Depth 0 -Total Square (Post) (cm) 0 -Area of Debridement (cm) - Length 0 -Area of Debridement (cm) - Width 0 -Total Square (Area) (cm) 0 -Wound/Ulcer Outcome Healed- Epithelialized Pain Scale: 0-10 Numeric Is Patient Pain Free? Yes - Nurse 3 - General Ulcer D/C NN Start: 12/18/19 13:43 Freq: Status: Active Protocol: Activity Type Activity Date Activity User E-Sign Co-Sign Detail Recorded Client Recorded Date Recorded By Document 12/18/19 14:21 RB [id number] 12/18/19 14:23 RB 12/18/19 14:21 Wound Care Nurse 3 Treatment Response Procedure Tolerated Well Vital Signs Blood Pressure (90/60-120/80) 148/88 H Blood Pressure Mean (mm Hg) 108 Source Monitor Position Sitting Blood Pressure Location Left Arm Pain Scale: 0-10 Numeric Is Patient Pain Free? Yes Teaching: Wound Center Compression Wraps & Stockings -Person Taught Patient -Teaching Method Discussion -Response to teaching Verbalize understanding WC - Visit Discharge Discharge Condition Stable Ambulatory Status Ambulatory Transportation Private Auto Medication Reconcilliation completed & No provided to patient/care provider Clinical Summary of Care Provided Yes 12/18/19 14:22 Wound Center by Trice Ontiveros adaptic and roll gauze applied to excoriated areas. pt states she will apply circaids when goes home today. Initialized on 12/18/19 14:22 - END OF NOTE No debridement was completed today Assessment/Plan Active Problems Bilateral lower extremity edema (Chronic) Dermatitis of lower extremity (Chronic) Non-pressure chronic ulcer of unspecified part of right lower leg limited to breakdown of skin (Chronic) Assessment: Same as above Plan: I reviewed and discussed her case with her again today. Debridement was not performed today due to lack of exposure of subcutaneous level. She has been changing dressing with Adaptic and demonstrates improvement. To continue with the Adaptic now that she has some weeping that has returned. To wash daily with Dial soap and water. To continue to moisturize her adjacent skin with her prescription dermatology moisturizing lotion. I do not recommend recurrent steroid cream or oral steroid cream. To continue leg elevation, increase protein intake and exercise as tolerated, reduce salt in diet, and avoid idle standing or sitting. To continue to follow-up with her commercial title examiner referral. Is going well so far. Her prior labs were discussed with her. She was advised to follow-up with her PCP for borderline diabetes management. Her hemoglobin A1c was 6.2%. I recommend work-up for potential underlying venous insufficiency with a venous Doppler examination with additional reflux evaluation and also noninvasive arterial studies to see if there are any arterial insufficiency. Her venous studies were reviewed and she does not have venous insufficiency. Noninvasive arterial studies were also reviewed with triphasic waveforms and it is noted 1 of her AV high levels was 1.4. I do not recommend additional intervention at this time however is to be considered if recurrence continues due to this potential early calcification. It is also noted that she has the CircAid compression wraps and she was advised that she appears to be using these properly. She can use the Tubigrip as an alternative underlying compression sleeve while the official CircAid undergarment is drying. She was advised to continue with diligent elevation and hourly muscular contraction. To reduce salt intake in the diet as well. To avoid idle standing and sitting. I also recommend nutritional referral to optimize healing, reduce weight, and reduce lower extremity edema. It is noted she started this process and I encouraged her to stay consistent. To continue with her new exercise regimen as well. Her questions were answered and she was advised to call with any further questions or concerns. Follow-up in a week.
== END 2019-12-28 23:59 ==
LOC: WC 13:36
PROVIDERS: PCP Family Medicine; Visit Provider Podiatrist
DX: L97.911 Non-pressure chronic ulcer of unspecified part of right lower leg limited to breakdown of skin (principal); R60.0 Localized edema; L30.9 Dermatitis, unspecified
CPT/HCPCS: 99212; G0463

== ENCOUNTER 2020-01-14 11:14 | Outpatient (RCR) | payer OTHER, SELFPAY | END 2020-01-14 23:59 | disposition home or self-care (01) | LOC: NS 11:14 | PROVIDERS: PCP Family Medicine; Visit Provider Podiatrist | DX: Z71.3 Dietary counseling and surveillance (principal); E66.01 Morbid (severe) obesity due to excess calories; Z68.44 Body mass index [BMI] 60.0-69.9, adult; R60.0 Localized edema | CPT/HCPCS: 97803 ==

== ENCOUNTER 2020-01-15 13:30 | Outpatient (RCR) | payer OTHER, SELFPAY ==
[2019-12-29 00:40] VITALS: BP 148/88; PULSE 70; RESP 18; TEMP 36.1
[2020-01-15 13:47] VITALS: BP 155/82; PULSE 77; RESP 18; TEMP 36.3; BMI 61.9
--- NOTE | 2020-01-15 19:52 | PCM.WC.PN ---
(1) Ulcer of right lower extremity, limited to breakdown of skin Status: Resolved Code(s): L97.911 - Non-pressure chronic ulcer of unspecified part of right lower leg limited to breakdown of skin (2) Lymphedema Status: Chronic Code(s): I89.0 - Lymphedema, not elsewhere classified (3) Bilateral lower extremity edema Status: Chronic Code(s): R60.0 - Localized edema (4) Localized edema Status: Chronic Code(s): R60.0 - Localized edema (5) Obesity Status: Chronic Code(s): E66.9 - Obesity, unspecified (6) Allergic contact dermatitis Status: Resolved Code(s): L23.9 - Allergic contact dermatitis, unspecified cause (7) Psoriasis Status: Chronic Code(s): L40.9 - Psoriasis, unspecified Type of Wound Date of Service: 01/15/20 Chief Complaint: right leg ulcer History of Wound: Ms. Lopez is a 54-year-old who presents to the wound center due recently healed right leg ulcer. She denies drainage, fever, chill, nausea, vomiting. She has also attended her green building materials designer referral and is trying to reduce her overall weight and salt intake. She wears CircAid compression dressings and tries to elevate her legs at rest also. She previously tried triamcinolone cream for a week and was not generally encouraged to continue longer than that by both me as well as her associate spa director. She did have improvement of skin peeling however had a recent edema exacerbation and feels like her leg is getting irritated again. She is seeing a green building materials designer and is trying to work on exercise by walking 10 minutes a day and improvement in diet to help with weight reduction. She will the ulcer site is healed but she still has intermittent leg weeping. Progress of Wound: Healed: Weeping intermittent continues - Physical Exam Vital Signs Temp Pulse Resp BP 97.3 F L 77 18 155/82 H 01/15/20 13:47 01/15/20 13:47 01/15/20 13:47 01/15/20 13:47 General: Alert, Oriented x3, Cooperative, No apparent distress Extremities: No cyanosis, Capillary Refill Less than 3 Seconds, No Calf Tenderness, Diminished Peripheral Pulses, Edema Skin: Ulcer/ Wound - Full epithelialization is noted. No ulcer is seen. No streaking erythema purulence odor necrosis or infection. There is hyperpigmentation to the anterior medial lateral leg. There is evidence of weeping drainage on her recent CircAid compression wrap. Her skin is atrophic and hairless Wound Measurements and Assessment - Nurse 1 - General Ulcer Measurement Start: 01/15/20 13:46 Freq: Status: Active Protocol: Activity Type Activity Date Activity User E-Sign Co-Sign Detail Recorded Client Recorded Date Recorded By Document 01/15/20 13:47 [facility] [id number] 01/15/20 13:54 [facility] 01/15/20 13:47 Wound Center Nurse 1 [Edema Assessment] -Lower Limb Edema Present Yes -Right Calf (cm) 58.5 -Right Ankle (cm) 32.8 WC - Nurse 2 - General Ulcer CM Notes Start: 01/15/20 13:46 Freq: Status: Active Protocol: Activity Type Activity Date Activity User E-Sign Co-Sign Detail Recorded Client Recorded Date Recorded By Document 01/15/20 14:05 [id number] 01/15/20 14:05 01/15/20 14:05 Pain Scale: 0-10 Numeric [Pain] -Is Patient Pain Free? Yes - Nurse 3 - General Ulcer D/C NN Start: 01/15/20 13:46 Freq: Status: Active Protocol: Activity Type Activity Date Activity User E-Sign Co-Sign Detail Recorded Client Recorded Date Recorded By Document 01/15/20 14:13 [facility] [id number] 01/15/20 14:14 [facility] 01/15/20 14:13 Wound Care Nurse 3 [Compression Applied] Right -Compression Wrap Anatoly Wrap -Other adaptic/gauze to R leg reddened areas [Post Procedure Tolerated] -Treatment Response Procedure Tolerated Well Pain Scale: 0-10 Numeric [Pain] -Is Patient Pain Free? Yes - Visit Discharge [Visit Discharge Information] -Discharge Condition Stable -Ambulatory Status Ambulatory -Transportation Private Auto Musculoskeletal: No Tenderness to Palpation of Joints or Extremities, Muscle Wasting, - - Compartment soft to palpate. Lymphedema presentation noted bilateral lower extremities Neurological: Sensory exam intact to light touch and pain Psych/Mental Status: Normal Affect, Appropriate Debridement Note Post-Debridement Measurements/Treatment WC - Nurse 2 - General Ulcer CM Notes Start: 01/15/20 13:46 Freq: Status: Active Protocol: Activity Type Activity Date Activity User E-Sign Co-Sign Detail Recorded Client Recorded Date Recorded By Document 01/15/20 14:05 [id number] 01/15/20 14:05 01/15/20 14:05 Pain Scale: 0-10 Numeric Is Patient Pain Free? Yes WC - Nurse 3 - General Ulcer D/C NN Start: 01/15/20 13:46 Freq: Status: Active Protocol: Activity Type Activity Date Activity User E-Sign Co-Sign Detail Recorded Client Recorded Date Recorded By Document 01/15/20 14:13 [facility] [id number] 01/15/20 14:14 [facility] 01/15/20 14:13 Wound Care Nurse 3 Right -Compression Wrap Anatoly Wrap -Other adaptic/gauze to R leg reddened areas Treatment Response Procedure Tolerated Well Pain Scale: 0-10 Numeric Is Patient Pain Free? Yes WC - Visit Discharge Discharge Condition Stable Ambulatory Status Ambulatory Transportation Private Auto No debridement was completed today - Ulcer healed Assessment/Plan Assessment: Same as above Plan: I reviewed and discussed her case with her again today. Debridement was not performed today due to lack of exposure of subcutaneous level. The ulcer site is healed. No she has intermittent weeping reported. She has been changing dressing with Adaptic and demonstrates improvement when weeping or some hemorrhagic tissue intermittently present. To continue with the Adaptic now that she has some weeping that has returned. To wash daily with Dial soap and water. To continue to moisturize her adjacent skin with her prescription dermatology moisturizing lotion. I do not recommend recurrent steroid cream or oral steroid cream. To continue leg elevation, increase protein intake and exercise as tolerated, reduce salt in diet, and avoid idle standing or sitting. To continue to follow-up with her green building materials designer referral. Is going well so far. Her prior labs were discussed with her. She was advised to follow-up with her PCP for borderline diabetes management. Her hemoglobin A1c was 6.2%. I recommend work-up for potential underlying venous insufficiency with a venous Doppler examination with additional reflux evaluation and also noninvasive arterial studies to see if there are any arterial insufficiency. Her venous studies were reviewed and she does not have venous insufficiency. Noninvasive arterial studies were also reviewed with triphasic waveforms and it is noted 1 of her AV high levels was 1.4. I do not recommend additional intervention at this time however is to be considered if recurrence continues due to this potential early calcification. It is also noted that she has the CircAid compression wraps and she was advised that she appears to be using these properly. She can use the Tubigrip as an alternative underlying compression sleeve while the official CircAid undergarment is drying. She was advised to continue with diligent elevation and hourly muscular contraction. To reduce salt intake in the diet as well. To avoid idle standing and sitting. I also recommend nutritional referral to optimize healing, reduce weight, and reduce lower extremity edema. It is noted she started this process and I encouraged her to stay consistent. To continue with her new exercise regimen as well. She has apparent lymphedema and I recommend lymphedema clinic referral. This was provided today. Compression pump will also be considered after this referral is initiated. To return to clinic in 1 month if needed. She is discharged from the wound healing center at this time. Her questions were answered and she was advised to call with any further questions or concerns.
== END 2020-01-27 23:59 ==
LOC: WC 13:30
PROVIDERS: PCP Family Medicine; Visit Provider Podiatrist
DX: Z09 Encounter for follow-up examination after completed treatment for conditions other than malignant neoplasm (principal); I89.0 Lymphedema, not elsewhere classified; R60.0 Localized edema; R73.03 Prediabetes; L40.9 Psoriasis, unspecified; E66.9 Obesity, unspecified
CPT/HCPCS: 99213; G0463

== ENCOUNTER 2020-01-29 08:24 | Outpatient (RCR) | payer OTHER, SELFPAY ==
--- NOTE | 2020-01-29 13:19 | HP.OTEVAL ---
Patient's Visit Information DENISE DEL CID is a 54 year old F, referred to Occupational Therapy by Dr. Ghislaine Rich DPM, with a diagnosis of lymphedema, edema. Date of Evaluation: 01/29/20 Occupational Therapist: Alicia Ryder, JEFFRY/Bharath, CHT - Subjective This 54 year old female was seen for OT eval with dx of lymphedema, leg edema. Pt states she has been going to the wound center for last 7-8 months and using circaide for 3 months. pt states she is wearing it about 8 hours during. pt states she still has seeping around the side and back of her right leg that she has not been able to get stopped. 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 pt states she does take circaid off when she gets home and notices increase swelling- pt did not wear CircAide to session today - Lymphedema (Circumferential Measure) Ankle: right 31cm left 30cm Lower calf: right 44cm left 45 cm Largest calf: right 58cm left 54cm Below knee: right 49cm left 49cm - Lower Limb Functional Index Lower Extremity Functional Score: 48 - Goals Demonstrate a 20% reduction in edema by d/c: Yes Demonstrate adequate knowledge of self-bangaging by 1st week: Yes Demonstrate adequate knowledge of self-massage by 2nd week: Yes Demonstrate adequate knowledge skin care/prec by 2nd week: Yes Demonstrate adequate knowledge therapeutic exercises by d/c: Yes Select approp compression garment w/donning/care/wear by d/c: Yes Voice need to replace compression garment every 4-6mo by dc: Yes - Rehabilitation General Assessment: pt demo with edema in left LE with superficial wound on right LE. pt verbalizes concerns with wound not healing and seeping. Pt would benefit from skilled OT services 1x week for 3 weeks to ed. pt on lymphedema mtg. Therapist is questioning if CircAide is rubbing and decreasing the ability for her skin to heal-( therapist advised to padd leg up prior to putting CircAide on left LE, using ABD padding, and double or triple stockenett) to decrease rubbing) Therapist advised pt in skin care and use of eucerin/aquaphor or vaseline, lymph stim exercises, and self manual lymph massage. Pt given handouts and demo understanding. Pt to return with circaid on so therapist can ensure good fit and pt is donning correctly. Pt did express that her has concerns with cost on supplies for her leg- therapist expressed different ways to save money with use of absorbente pads, old martine leggings cut to length of leg to use as skin protectors vs stockenetts and vaseline vs expensive lotions. Therapist advised on use of compression socks for LE 30-40 mmHg once leg is cleared and done seeping. pt demo understanding and agree to POC Rehabilitation Potential: Questionable - Anticipated Interventions Education re Diagnosis, Manual Lymph Drainage, Education re Life-long lymphedema Management, Education re Self-Bandaging Techniques, Education re Skin Care and Precautions, Education re Self Massage Techniques, Education re Correct Donning Tech,Care&Wearing Sched Comp Garments, Home Program - Visit Plan Frequency: 1x/Week Duration: 3 Weeks TEXT: Thank you for the opportunity to evaluate your patient. For Medicare and Medicare HMO plans, please review the plan of care and approve it. It will need to be FAXED BACK to us at [phone] for Medicare purposes. Please let me know if there are questions or concerns regarding this plan of care. Physician Signature: Date:
== END 2020-01-29 19:00 | disposition home or self-care (01) ==
LOC: OT 08:24
PROVIDERS: PCP Family Medicine; Referring Provider Podiatrist; Visit Provider Podiatrist
DX: I89.0 Lymphedema, not elsewhere classified (principal)
CPT/HCPCS: 97110; 97166

== ENCOUNTER 2020-02-12 13:46 | Outpatient (RCR) | payer OTHER, SELFPAY ==
[2020-01-28 00:37] VITALS: BP 155/82; PULSE 77; RESP 18; TEMP 36.3
[2020-02-12 13:54] VITALS: BP 147/77; PULSE 72; RESP 20; TEMP 36.3; BMI 61.9
--- NOTE | 2020-02-12 21:22 | PCM.WC.PN ---
(1) Dermatitis Status: Chronic Code(s): L30.9 - Dermatitis, unspecified (2) Ulcer of right lower extremity with fat layer exposed Status: Resolved Code(s): L97.912 - Non-pressure chronic ulcer of unspecified part of right lower leg with fat layer exposed (3) Bilateral lower extremity edema Status: Chronic Code(s): R60.0 - Localized edema (4) Lymphedema Status: Chronic Code(s): I89.0 - Lymphedema, not elsewhere classified (5) Overweight Status: Chronic Code(s): E66.3 - Overweight Type of Wound Date of Service: 02/12/20 Chief Complaint: right leg ulcer History of Wound: Ms. Lopez is a 54-year-old who presents to the wound center due recently healed right leg ulcer. She denies drainage, fever, chill, nausea, vomiting. She has also attended her hr administrative assistant referral and is trying to reduce her overall weight and salt intake. She wears CircAid compression dressings and tries to elevate her legs at rest also. She started at the lymphedema clinic. She no longer uses dressing changes. Occasionally her leg does weep however the ulcer has not returned. Progress of Wound: Healed: Weeping intermittent continues - Physical Exam Vital Signs Temp Pulse Resp BP 97.3 F L 72 20 H 147/77 H 02/12/20 13:54 02/12/20 13:54 02/12/20 13:54 02/12/20 13:54 General: Alert - All, Oriented x3, Cooperative, No apparent distress Extremities: No cyanosis, No edema, Capillary Refill Less than 3 Seconds, No Calf Tenderness, Diminished Peripheral Pulses, Edema Skin: Ulcer/ Wound - No skin discontinuity. No purulence, erythema, string, odor, infection. Her skin does have some hyperpigmentation and skin peeling however there is no alona ulceration seen. No bogginess or fluctuance Wound Measurements and Assessment WC - Nurse 1 - General Ulcer Measurement Start: 02/12/20 13:54 Freq: Status: Discharge Protocol: Activity Type Activity Date Activity User E-Sign Co-Sign Detail Recorded Client Recorded Date Recorded By Document 02/12/20 13:54 [id number] [id number] 02/12/20 14:02 BMF Edit Status 02/12/20 15:02 BKG DAEMON Active=>Discharge [id number] 02/12/20 15:02 BKG DAEMON 02/12/20 13:54 Wound Center Nurse 1 [Edema Assessment] -Lower Limb Edema Present Yes -Right Calf (cm) 57.6 -Right Ankle (cm) 32.5 WC - Nurse 2 - General Ulcer CM Notes Start: 02/12/20 13:54 Freq: Status: Discharge Protocol: Activity Type Activity Date Activity User E-Sign Co-Sign Detail Recorded Client Recorded Date Recorded By Document 02/12/20 14:39 [id number] 02/12/20 14:41 Edit Status 02/12/20 15:02 BKG DAEMON Active=>Discharge [id number] 02/12/20 15:02 BKG DAEMON 02/12/20 14:39 Pain Scale: 0-10 Numeric [Pain] -Is Patient Pain Free? Yes - Nurse 3 - General Ulcer D/C NN Start: 02/12/20 13:54 Freq: Status: Discharge Protocol: Activity Type Activity Date Activity User E-Sign Co-Sign Detail Recorded Client Recorded Date Recorded By Document 02/12/20 14:55 [facility] [id number] 02/12/20 14:56 [facility] Edit Status 02/12/20 15:02 BKG DAEMON Active=>Discharge [facility] 02/12/20 15:02 BKG DAEMON 02/12/20 14:55 Wound Care Nurse 3 [Post Procedure Tolerated] -Treatment Response Procedure Tolerated Well Pain Scale: 0-10 Numeric [Pain] -Is Patient Pain Free? Yes - Visit Discharge [Visit Discharge Information] -Discharge Condition Stable -Ambulatory Status Ambulatory -Transportation Private Auto -Notes: discharged Musculoskeletal: Muscle Wasting Neurological: Sensory exam intact to light touch and pain, - - Altered sensation Psych/Mental Status: Normal Affect, Appropriate Debridement Note Post-Debridement Measurements/Treatment WC - Nurse 2 - General Ulcer CM Notes Start: 02/12/20 13:54 Freq: Status: Discharge Protocol: Activity Type Activity Date Activity User E-Sign Co-Sign Detail Recorded Client Recorded Date Recorded By Document 02/12/20 14:39 [id number] 02/12/20 14:41 JF 02/12/20 14:39 Pain Scale: 0-10 Numeric Is Patient Pain Free? Yes - Nurse 3 - General Ulcer D/C NN Start: 02/12/20 13:54 Freq: Status: Discharge Protocol: Activity Type Activity Date Activity User E-Sign Co-Sign Detail Recorded Client Recorded Date Recorded By Document 02/12/20 14:55 [facility] [id number] 02/12/20 14:56 BM 02/12/20 14:55 Wound Care Nurse 3 Treatment Response Procedure Tolerated Well Pain Scale: 0-10 Numeric Is Patient Pain Free? Yes WC - Visit Discharge Discharge Condition Stable Ambulatory Status Ambulatory Transportation Private Auto Notes: discharged No debridement was completed today - ulcer healed Assessment/Plan Active Problems Bilateral lower extremity edema (Chronic) Overweight (Chronic) Dermatitis (Chronic) Lymphedema (Chronic) Assessment: Same as above Plan: I reviewed and discussed her case with her again today. Debridement was not performed today due to healed status. The ulcer site is healed. No she has intermittent weeping reported. She has been changing dressing with Adaptic and demonstrates improvement when weeping or some hemorrhagic tissue intermittently present. To continue with the Adaptic now that she has some weeping that has returned. To wash daily with Dial soap and water. To continue to moisturize her adjacent skin with her prescription dermatology moisturizing lotion. I do not recommend recurrent steroid cream or oral steroid cream. To continue leg elevation, increase protein intake and exercise as tolerated, reduce salt in diet, and avoid idle standing or sitting. To continue to follow-up with her hr administrative assistant referral. Is going well so far. Her prior labs were discussed with her. She was advised to follow-up with her PCP for borderline diabetes management. Her hemoglobin A1c was 6.2%. I recommend work-up for potential underlying venous insufficiency with a venous Doppler examination with additional reflux evaluation and also noninvasive arterial studies to see if there are any arterial insufficiency. Her venous studies were reviewed and she does not have venous insufficiency. Noninvasive arterial studies were also reviewed with triphasic waveforms and it is noted 1 of her AV high levels was 1.4. I do not recommend additional intervention at this time however is to be considered if recurrence continues due to this potential early calcification. It is also noted that she has the CircAid compression wraps and she was advised that she appears to be using these properly. She can use the Tubigrip as an alternative underlying compression sleeve while the official CircAid undergarment is drying. She was advised to continue with diligent elevation and hourly muscular contraction. To reduce salt intake in the diet as well. To avoid idle standing and sitting. To continue at lymphedema clinic. This is going well so far. I also recommend nutritional referral to optimize healing, reduce weight, and reduce lower extremity edema. It is noted she started this process and I encouraged her to stay consistent. To continue with her new exercise regimen as well. Compression pump will also be considered after this referral is initiated. She is discharged from the wound healing center at this time. Her questions were answered and she was advised to call with any further questions or concerns.
== END 2020-02-12 15:01 | disposition home or self-care (01) ==
LOC: WC 13:46
PROVIDERS: PCP Family Medicine; Visit Provider Podiatrist
DX: Z09 Encounter for follow-up examination after completed treatment for conditions other than malignant neoplasm (principal); I89.0 Lymphedema, not elsewhere classified; R60.0 Localized edema; L30.9 Dermatitis, unspecified; R73.03 Prediabetes; E66.3 Overweight
CPT/HCPCS: 99213; G0463

== ENCOUNTER → 2023-11-28 | Outpatient (CLI) | payer SELFPAY ==
--- NOTE | 2023-11-28 | EMB_PTH ---
PATIENT: DENISE DEL CID [facility]: [facility] U#:[id number] AGE/SX: 58/F ROOM: RE11/28/[address]: EDGAR Rose : 1965 BED: DIS: 11/28/2023 SPEC #: [id number] RECD: 11/28/23 11:41 STATUS: SOHAM RANCHO #: [id number] HARJINDER: 11/28/23 00:[address]: Marybeth Garcia NP DEPT: SURGICAL PATHOLOGY RECD BY: Brianne Degroot ENTERED: 11/28/23 12:40 SP TYPE: ENDOM BX/C QI DR: Dr. Eron Art DO Tissues: Endometrium, NOS Procedures: Surgery Specimen Level IV HEADER OPERATION: Endometrial biopsy PRE-OP DIAGNOSIS: Postmenopausal bleeding TISSUE SUBMITTED: Endometrial tissue MICROSCOPIC DIAGNOSIS Endometrial biopsy: Simple cystic endometrial hyperplasia without atypia. See heber. 11/29/2023 COMMENT A few of the fragments have polypoid appearance. May represent fragments of endometrial polyp. Clinical correlation and appropriate follow up are necessary. MICROSCOPIC DESCRIPTION Slides are reviewed. GROSS DESCRIPTION Received is one container labeled with the patient's name and not further designated. The specimen consists of multiple irregular fragments of pink mucoid tissue that in aggregate measure 2.5 x 2.0 x 0.1 cm. The specimen is totally submitted in one cassette. 11/28/2023 TC:5 CPT:88790
[2023-12-03 10:07] LABS: HPV APTIMA, High Risk Negative (Negative)
== END | disposition home or self-care (01) ==
LOC: LABSPEC 11:48
PROVIDERS: PCP Family Medicine; Referring Provider Nurse Practitioner Women's Health; Visit Provider Nurse Practitioner Women's Health
DX: N92.4 Excessive bleeding in the premenopausal period (principal); Z12.4 Encounter for screening for malignant neoplasm of cervix
CPT/HCPCS: 87624; 88175; 88305; G0145

== ENCOUNTER → 2023-12-04 | Outpatient (CLI) | payer SELFPAY ==
--- NOTE | 2023-12-04 16:54 | US_ITS ---
INDICATION: PMB EXAMINATION: Ultrasound US Pelvis Non OB Complete With Transvaginal Imaging TECHNIQUE: Transabdominal and transvaginal pelvic ultrasound was performed. Grayscale, spectral waveform, and color flow Doppler evaluation of the adnexa. COMPARISON: FINDINGS: UTERUS: Anteverted. The uterus measures 13.0 x 6.3 x 4.5 cm. There is no uterine mass. The endometrial stripe measures 10 mm in AP diameter which is within normal limits. Nabothian cysts. RIGHT OVARY: Nonvisualization. LEFT OVARY: Nonvisualization. FREE FLUID: None. US/Pelvic w/ Transvaginal IMPRESSION: Nabothian cysts. Nonvisualization of the ovaries. Electronically Signed: Delfino Olivera DO at 17:02 EDT ,
== END | disposition home or self-care (01) ==
PROVIDERS: PCP Nurse Practitioner Family; Referring Provider Nurse Practitioner Women's Health; Visit Provider Nurse Practitioner Women's Health
DX: N95.0 Postmenopausal bleeding (principal)
CPT/HCPCS: 76830; 76856

== ENCOUNTER → 2023-12-08 | Outpatient (CLI) | payer SELFPAY ==
--- NOTE | 2023-12-08 15:40 | BI_ITS ---
MAMMOGRAPHY - BILATERAL SCREENING 3-D TOMOSYNTHESIS REASON FOR EXAM: Female, 58 years old. Screening for breast cancer PERTINENT HISTORY: No significant family history. TECHNIQUE: 2-D mammograms and 3-D Tomosynthesis of the breast (s) were performed. CAD was performed. COMPARISON: 02/02/2016 FINDINGS: The breast composition is composed of scattered fibroglandular density. Scattered benign calcifications are seen. No dense spiculated masses or suspicious microcalcifications are identified. No architectural distortion is identified. There is no skin thickening or retraction. There has been no significant change since the prior study. BI/SCRN MAMM (CAD)W/ALBERTO BILAT IMPRESSION: No mammographic signs of malignancy. Routine yearly mammograms recommended. ASSESSMENT CATEGORY: BIRADS Category 1: Negative. A letter regarding these results will be sent to the patient by the facility within 30 days. FOLLOW UP RECOMMENDATION: Yearly follow up mammogram recommended. (A) Approximately 10% of breast cancers are not detected by mammography. A normal mammogram should not delay biopsy of a clinically suspicious abnormality. Electronically Signed: Socrates Brewer MD at 13:44 EDT ,
== END | disposition home or self-care (01) ==
LOC: OPBI 15:40
PROVIDERS: PCP Nurse Practitioner Family; Referring Provider Nurse Practitioner Women's Health; Visit Provider Nurse Practitioner Women's Health
DX: Z12.31 Encounter for screening mammogram for malignant neoplasm of breast (principal)
CPT/HCPCS: 77063; 77067

== ENCOUNTER → 2024-01-08 | Outpatient (CLI) | payer SELFPAY | END | disposition home or self-care (01) | LOC: BWCLAB 09:32 | PROVIDERS: PCP Nurse Practitioner Family; Referring Provider Obstetrics & Gynecology; Visit Provider Obstetrics & Gynecology | DX: Z13.29 Encounter for screening for other suspected endocrine disorder (principal); E11.8 Type 2 diabetes mellitus with unspecified complications; N95.0 Postmenopausal bleeding; E66.9 Obesity, unspecified; I89.0 Lymphedema, not elsewhere classified | CPT/HCPCS: 36415; 84443 ==

== ENCOUNTER → 2024-03-19 | Outpatient (CLI) | payer SELFPAY ==
[2024-03-19 11:02] LABS: Calcium,Total 11.9 mg/dL (8.5-10.1)
[2024-03-19 11:04] LABS: PTHIN 204.1 pg/mL (18.4-80.1)
[2024-03-19 11:08] LABS: Vitamin D,25 Hydroxy 32.7 ng/mL
[2024-03-20 04:07] LABS: Thyroid Peroxidase AB < 9 IU/mL (0-34)
== END | disposition home or self-care (01) ==
LOC: LAB 09:46
PROVIDERS: PCP Nurse Practitioner Family; Referring Provider Internal Medicine Endocrinology, Diabetes & Metabolism; Visit Provider Internal Medicine Endocrinology, Diabetes & Metabolism
DX: E55.9 Vitamin D deficiency, unspecified (principal); E21.3 Hyperparathyroidism, unspecified
CPT/HCPCS: 36415; 82306; 82310; 83970; 86376

== ENCOUNTER → 2024-03-28 | Outpatient (CLI) | payer SELFPAY ==
--- NOTE | 2024-03-28 17:32 | US_ITS ---
PROCEDURE: THYROID REASON FOR EXAM: Hyperparathyroidism TECHNIQUE: Real-time grayscale and color flow imaging was performed along with routine image documentation. COMPARISON: No relevant prior. FINDINGS: Right thyroid lobe measures 4.4 x 1.7 x 2.0 cm. Left thyroid lobe measures 3.6 x 1.4 x 1.3 cm.. Isthmus thickness is0.4 cm.. Thyroid Size: Normal Background Echotexture: Homogeneous. Thyroid Nodules: None US/Thyroid IMPRESSION: NORMAL THYROID ULTRASOUND Reading Location: [facility]
== END | disposition home or self-care (01) ==
LOC: US 17:22
PROVIDERS: PCP Nurse Practitioner Family; Referring Provider Internal Medicine Endocrinology, Diabetes & Metabolism; Visit Provider Internal Medicine Endocrinology, Diabetes & Metabolism
DX: E21.0 Primary hyperparathyroidism (principal)
CPT/HCPCS: 76536

== ENCOUNTER → 2024-04-09 | Outpatient (CLI) | payer SELFPAY ==
--- NOTE | 2024-04-09 10:02 | NM_ITS ---
PROCEDURE: PARATHYROID SCAN REASON FOR EXAM: Hypercalcemia. Localization. TECHNIQUE: Nuclear medicine parathyroid imaging performed following intravenous technetium- 99m sestamibi administration. Immediate and delayed anterior neck imaging was performed. RADIOPHARMACEUTICAL: 27.8 mCi technetium 99 M sestamibi intravenous. COMPARISON: None provided. FINDINGS: On initial imaging, extending from the left inferior thyroid lobe is seen a focus increased uptake, which persists on delayed imaging, the remaining bilateral thyroid showing partial diminishment on delayed imaging. This is concerning for the presence of a left inferior parathyroid adenoma. NM/Parathyroid Scan IMPRESSION: Findings concerning for a left inferior parathyroid adenoma. Reading Location: [id number]
== END | disposition home or self-care (01) ==
PROVIDERS: PCP Nurse Practitioner Family; Referring Provider Internal Medicine Endocrinology, Diabetes & Metabolism; Visit Provider Internal Medicine Endocrinology, Diabetes & Metabolism
DX: E21.0 Primary hyperparathyroidism (principal)
CPT/HCPCS: 78070; A9500

== ENCOUNTER → 2024-04-18 | Outpatient (CLI) | payer SELFPAY ==
--- NOTE | 2024-04-18 10:07 | BD_ITS ---
PROCEDURE: DEXA BONE DENSITY STUDY REASON FOR EXAM: Osteoporosis screening TECHNIQUE: DEXA scan of the lumbar spine and both hips. COMPARISON: None. FINDINGS: Lumbar spine: Bone mineral density is 0.989 g per cm2. T-score -0.5. Left hip: Bone mineral density 0.668 g per sq cm and T-score of -1.6. Right hip: Bone mineral density 0.709 g per sq cm and T-score of -1.3. FRAX* Results: 10 Year Probability of Fracture: Hip Fracture(1): 0.6%% Major Osteoporotic Fracture(2): 7%% *FRAX is a trademark of the [employer]'s [facility] Metabolic Bone Disease, World Health Organization (WHO) Collaborating [place]. 1-The 10-year probability of fracture may be lower than reported if the patient has received treatment. 2-Major Osteoporotic Fracture: Clinical Spine, Forearm, Hip or Shoulder. The T-scores are also available for review on the [facility] PACS or by accessing the [facility] electronic medical record. BD/Dexa Bone Density Study IMPRESSION: Osteopenia. Reading Location: [facility]
== END | disposition home or self-care (01) ==
PROVIDERS: PCP Nurse Practitioner Family; Referring Provider Internal Medicine Endocrinology, Diabetes & Metabolism; Visit Provider Internal Medicine Endocrinology, Diabetes & Metabolism
DX: Z13.820 Encounter for screening for osteoporosis (principal); M85.88 Other specified disorders of bone density and structure, other site
CPT/HCPCS: 77080

== ENCOUNTER → 2024-05-17 | Outpatient (CLI) | payer SELFPAY ==
[2024-05-17 13:29] LABS: Hematocrit 44.7 % (37-47); Mean Corp Hgb Conc 33.6 g/dL (32-36); Mean Corpuscular Hgb 31.4 pg (27.0-32.0); Mean Corpuscular Volume 93.5 fL (81-99); Mean Platelet Vol. 10.8 fl (6.2-12.0); Platelet Count 276 K/mm3 (150-450); RBC Distribution Width CV 12.9 % (11.6-14.6); Red Blood Count 4.78 M/mm3 (4.2-5.4); White Blood Count 6.3 K/mm3 (4.4-11.0)
[2024-05-17 14:18] LABS: PTHIN 172 pg/mL (11-61)
[2024-05-17 14:27] LABS: Hepatitis C Antibody Nonreactive (Nonreactive)
[2024-05-17 14:34] LABS: ALB/GLOB Ratio 1.5 RATIO (0.9-2.4); AST(SGOT) 27 U/L (<=31); Alanine Aminotransfer ALT/SGPT 33 U/L (<=34); Albumin, Serum 4.1 g/dL (3.5-5.0); Alkaline Phosphatase 64 U/L (35-104); Anion Gap 9 (5-15); BUN 24 mg/dL (4-19); BUN/Creat Ratio 26.9 RATIO (10-20); Calcium,Total 11.4 mg/dL (7.6-11.0); Chloride 105 mmol/L (98-108); Creatinine, Serum 0.89 mg/dL (0.70-1.20); EST Glomerular Filtration Rate 75 (>60); Globulin 2.8 g/dL (2.2-4.2); Glucose 91 mg/dL (70-99); Potassium 4.6 mmol/L (3.3-5.1); Protein, Total 6.9 g/dL (5.9-8.4); Sodium Level 138 mmol/L (133-145); Total Bilirubin 0.44 mg/dL (0.00-1.30)
[2024-05-17 16:08] LABS: Hemoglobin A1c 5.6 % (<=5.6)
[2024-05-17 16:09] LABS: Cholesterol 177 mg/dL (<=200); High Density Lipoprotein 29 mg/dL; Low Density Lipoprotein Calc. 128 mg/dL; Triglycerides 97 mg/dL; Very Low Density Lipoprotein 19 mg/dL (5-40); cholesterol:hdl ratio screen 6.04
[2024-05-17 16:17] LABS: Vitamin D,25 Hydroxy 22.3 ng/mL (30-100)
== END | disposition home or self-care (01) ==
LOC: LAB 12:46
PROVIDERS: PCP Nurse Practitioner Family; Referring Provider Nurse Practitioner Family; Visit Provider Nurse Practitioner Family
DX: Z01.818 Encounter for other preprocedural examination (principal); Z68.43 Body mass index [BMI] 50.0-59.9, adult; E66.01 Morbid (severe) obesity due to excess calories; E21.0 Primary hyperparathyroidism; L40.9 Psoriasis, unspecified; E83.52 Hypercalcemia; Z13.9 Encounter for screening, unspecified
CPT/HCPCS: 36415; 80053; 80061; 82306; 83036; 83970; 85027; 86803

== ENCOUNTER 2024-06-04 06:06 | Day surgery (SDC) | payer SELFPAY ==
--- NOTE | 2024-05-23 10:24 | EKG12_ITS ---
Test Reason : PRE OP Blood Pressure : */* mmHG Vent. Rate : 68 BPM Atrial Rate : 68 BPM P-R Int : 174 ms QRS Dur : 92 ms QT Int : 382 ms P-R-T Axes : 48 -1 67 degrees QTcB Int : 406 ms Normal sinus rhythm Cannot rule out Anterior infarct , age undetermined Abnormal ECG Confirmed by YOUNG HAUSER, LUCIE ([id number]), deputy editor in chief RAY HAUSER ([id number]) on 05/23/2024 12:52:44 PM Referred By: Errol Adams Confirmed By: LUCIE VIDAL MD
--- NOTE | 2024-05-23 14:29 | PAT.ANE_ITS ---
Pre-Assessment Diagnosis/Proposed Procedure Planned Operative Procedure(s): Parathyroidectomy w/IONM, PTH, and frozen section Anesthesia History Anesthesia History - quality assurance project manager: Anesthesia History - quality assurance project manager Hx Hospitalization No 05/21/24 11:11 Any Problems With Anesthesia No 05/21/24 11:11 Cholinesterase deficiency No 05/21/24 11:11 You/Your Family Experience No 05/21/24 11:11 fever (hyperthermia) with Relationship Recent Exposure to Contagious Disease Does patient have nerve No 05/21/24 11:11 stimulator Patient instructed to have device shut off --Does patient have Pacemaker or ICD? When Was Last Pacemaker Check QUESTION #4 FULL TEXT: You/Your Family Experience fever (hyperthermia) with Anesthesia Last Oral Intake Last Oral intake: Last Oral Intake NPO since Meds taken in AM with sips of water? Meds patient instructed to take am of surgery PONV PONV - quality assurance project manager: PONV - quality assurance project manager Female Yes 05/21/24 11:11 HX of Motion Sickness No 05/21/24 11:11 HX of N/V After Surgery No 05/21/24 11:11 Non-Smoker Yes 05/21/24 11:11 Duration of Surgery greater No 05/21/24 11:11 than 60 minutes Number of Risk Factors 2 05/21/24 11:11 PONV Score Moderate Risk 05/21/24 11:11 Height & Weight Height & Weight: Anesthesia: Height & Weight Height 5 ft 3 in 05/01/24 08:20 Respiratory Assessment Respiratory Assessment - quality assurance project manager: Respiratory Tract Infection Hx - quality assurance project manager Hx Respiratory Tract Infection No 05/21/24 11:11 STOP Sleep Apnea STOP Sleep Apnea - quality assurance project manager: STOP Sleep Apnea - quality assurance project manager Hx Hypertension No 05/21/24 11:11 Hx Sleep Apnea No 05/21/24 11:11 CPAP BIPAP Do you snore loudly (louder No 05/21/24 11:11 than talking or can be heard Do you often feel tired/ No 05/21/24 11:11 fatigued/ sleepy during daytime? Has anyone observed you stop No 05/21/24 11:11 breathing during sleep? STOP Results Negative 05/21/24 11:11 QUESTION #5 FULL TEXT : Do you snore loudly (louder than talking or can be heard through closed doors)? Tobacco Use History Tobacco Use History - quality assurance project manager: Tobacco Use History - quality assurance project manager Tobacco Use Smoking Status Never smoker 05/21/24 11:11 Hx Tobacco Use No 05/21/24 11:11 Years Smoking Packs Smoked per Day Smoking Cessation Date was within the last 15 years Hx Smoking Cessation Date Hx Smoking Cessation Counseling Hematologic Medial History Hematologic Hx - quality assurance project manager: Hematologic Medical Hx - clinical documentation clerk Hx of Blood Transfusion No 05/21/24 11:11 Hx of Transfusion in last 3 No 05/21/24 11:11 Months Date of Last Transfusion (if within last 3 months) Ever experience any problems No 05/21/24 11:11 with transfusion(s)? Specify any problems Hx of Preganancy in last 3 No 05/21/24 11:11 Months Nurse Filling Out Transfusion VCHRISTIN 05/21/24 11:11 & Questions: Date: 05/21/24 05/21/24 11:11 Time: 11:12 05/21/24 11:11 Patient unable to answer at this time (ie. confused, unrespo /Reproduction History /Reproductive History - quality assurance project manager: /Reproductive Hx- quality assurance project manager Hx Now No 05/21/24 11:11 Gestational Age (in weeks): EDC: Hx Hx Para Hx Section SAB No 05/21/24 11:11 [facility] Medical History (Updated 05/21/24 @ 11:11 by Ria Lamb) Wears glasses Arthritis Scoliosis Non-smoker History of edema Thyroid eye disease Primary hyperparathyroidism Hyperparathyroidism Screening for osteoporosis Home Medications ?Medication ?Instructions ?Recorded ?Last Taken ?Type triamcinolone acetonide 0.5 % 1 applic topical .COMPLE X #45 grams 02/22/19 Unknown Rx topical ointment cholecalciferol (vitamin D3) 50 50 mcg PO DAILY Unknown History mcg (2,000 unit) capsule (Vitamin D3) Allergy/AdvReac Type Severity Reaction Status Date / Time aspirin (ASA) Allergy Intermediate Swelling Verified 05/21/24 11:04 Iodinated Contrast Media Allergy Mild Hives Verified 05/21/24 11:04 (contrast dye - iodinated) levofloxacin (From Levaquin) Allergy Other Verified 05/21/24 11:04 naproxen Allergy Other Verified 05/21/24 11:04 Penicillins Allergy Other Verified 05/21/24 11:04 Family History Father Cancer Prostate Sister Cancer cholangiocarcinoma- Bile duct Grandfather Cancer Prostate Surgical History (Updated 05/21/24 @ 11:11 by Ria Lamb) S/P D&C (status post dilation and curettage) S/P appendectomy Social History household members: spouse current occupational status: employed current occupation: [employer] Smoking Status: Never smoker alcohol intake: never substance use type: does not use seatbelt use: always do you feel safe at home: Yes additional social history: - [employer]- Retired Audit: Pertinent Findings Pertinent Findings EKG Perinent findings: May 23, 2024. Normal sinus rhythm. Cannot rule out anterior infarct, age undetermined. Recommendation Anesthesia Recommendation Anesthesia recommendation: OPTIMIZED for anesthesia
[2024-06-04] VITALS (11 sets, daily range): BP systolic 106–139; BP diastolic 48–75; PULSE 50–78; RESP 14–18; TEMP 36–36.9; O2SAT 94–99; BMI 42.5
--- NOTE | 2024-06-04 06:22 | PCM.PRE.AN2 ---
ASA Classification* ASA Classification ASA Classification: 3 Assessment & Plan Anesthesia* Anesthesia Assessment Anesthesia Assessment: Discussed sedation and/or anesthesia options, risks, benefits, and alternatives with patient/parents/legal guardian/POA. Questions invited. The patient/parents/legal guardian/POA seems to understand and agrees to proceed with anesthesia plan. Reviewed the physical assessment, medical history, allergy history and patient home medications list prior to surgery/procedure/anesthetic and documented any changes. Performed airway and anesthesia risk assessments. Anesthesia Type Anesthesia Type: General Anesthesia Focused Assessment* Temperature: 97.9 F Pulse Rate: 50 Blood Pressure: 110/48 Respiratory Rate: 18 Pulse Ox: 98 Oxygen Delivery Method: Room Air Airway Assessment Mouth opens: >3 cm Mallampati Score: III Teeth Condition: Caps/Crowns (Left lower Molar has a cap. It is tight.) Neck Range of motion (ROM): Full ROM Focused Labs Anesthesia Preop lab: CBC WBC 6.3 K/mm3 (4.4-11.0) 05/17/24 12:48 05/17/24 RBC 4.78 M/mm3 (4.2-5.4) 05/17/24 12:48 05/17/24 Hgb 15.0 g/dL (12.0-15.0) 05/17/24 12:48 05/17/24 Hct 44.7 % (37-47) 05/17/24 12:48 05/17/24 Plt Count 276 K/mm3 (150-450) 05/17/24 12:48 05/17/24 CHEMISTRY Potassium 4.6 mmol/L (3.3-5.1) 05/17/24 12:48 05/17/24 Sodium 138 mmol/L (133-145) 05/17/24 12:48 05/17/24 BUN 24 mg/dL (4-19) H 05/17/24 12:48 05/17/24 Creatinine 0.89 mg/dL (0.70-1.20) 05/17/24 12:48 05/17/24 Glucose 91 mg/dL (70-99) 05/17/24 12:48 05/17/24 TSH 2.900 uIU/mL (0.358-3.740) 01/08/24 09:33 01/08/24 COAG Pre-Assessment Diagnosis/Proposed Procedure Planned Operative Procedure(s): Parathyroidectomy w/IONM, PTH, and frozen section Anesthesia History Anesthesia History - stain remover: Anesthesia History - stain remover Hx Hospitalization No 05/21/24 11:11 Any Problems With Anesthesia No 05/21/24 11:11 Cholinesterase deficiency No 05/21/24 11:11 You/Your Family Experience No 05/21/24 11:11 fever (hyperthermia) with Relationship Recent Exposure to Contagious Disease Does patient have nerve No 05/21/24 11:11 stimulator Patient instructed to have device shut off --Does patient have Pacemaker or ICD? When Was Last Pacemaker Check QUESTION #4 FULL TEXT: You/Your Family Experience fever (hyperthermia) with Anesthesia Last Oral Intake Last Oral intake: Last Oral Intake NPO since Meds taken in AM with sips of water? Meds patient instructed to take am of surgery Any additional information?: Yes NPO since: 00:00 Meds taken in AM with sips of water?: No PONV PONV - stain remover: PONV - stain remover Female Yes 05/21/24 11:11 HX of Motion Sickness No 05/21/24 11:11 HX of N/V After Surgery No 05/21/24 11:11 Non-Smoker Yes 05/21/24 11:11 Duration of Surgery greater No 05/21/24 11:11 than 60 minutes Number of Risk Factors 2 05/21/24 11:11 PONV Score Moderate Risk 05/21/24 11:11 Height & Weight Height & Weight: Anesthesia: Height & Weight Height 5 ft 3 in 05/01/24 08:20 Respiratory Assessment Respiratory Assessment - stain remover: Respiratory Tract Infection Hx - stain remover Hx Respiratory Tract Infection No 05/21/24 11:11 STOP Sleep Apnea STOP Sleep Apnea - stain remover: STOP Sleep Apnea - stain remover Hx Hypertension No 05/21/24 11:11 Hx Sleep Apnea No 05/21/24 11:11 CPAP BIPAP Do you snore loudly (louder No 05/21/24 11:11 than talking or can be heard Do you often feel tired/ No 05/21/24 11:11 fatigued/ sleepy during daytime? Has anyone observed you stop No 05/21/24 11:11 breathing during sleep? STOP Results Negative 05/21/24 11:11 QUESTION #5 FULL TEXT : Do you snore loudly (louder than talking or can be heard through closed doors)? Tobacco Use History Tobacco Use History - stain remover: Tobacco Use History - stain remover Tobacco Use Smoking Status Never smoker 05/21/24 11:11 Hx Tobacco Use No 05/21/24 11:11 Years Smoking Packs Smoked per Day Smoking Cessation Date was within the last 15 years Hx Smoking Cessation Date Hx Smoking Cessation Counseling Hematologic Medial History Hematologic Hx - stain remover: Hematologic Medical Hx - type cutter Hx of Blood Transfusion No 05/21/24 11:11 Hx of Transfusion in last 3 No 05/21/24 11:11 Months Date of Last Transfusion (if within last 3 months) Ever experience any problems No 05/21/24 11:11 with transfusion(s)? Specify any problems Hx of Preganancy in last 3 No 05/21/24 11:11 Months Nurse Filling Out Transfusion VCHRISTIN 05/21/24 11:11 & Questions: Date: 05/21/24 05/21/24 11:11 Time: 11:12 05/21/24 11:11 Patient unable to answer at this time (ie. confused, unrespo /Reproduction History /Reproductive History - stain remover: /Reproductive Hx- stain remover Hx Now No 05/21/24 11:11 Gestational Age (in weeks): EDC: Hx Hx Para Hx Section SAB No 05/21/24 11:11 Active Medications Active Medications: Current Medications Generic Name Dose Route Start Last Admin Trade Name Freq PRN Reason Stop Dose Admin Sodium Chloride 1,000 mls @ 15 mls/hr 06/04/24 06:20 IV .Q48H ALCIDES PFSH Medical History Wears glasses Arthritis Scoliosis Non-smoker History of edema Thyroid eye disease Primary hyperparathyroidism Hyperparathyroidism Screening for osteoporosis Home Medications ?Medication ?Instructions ?Recorded ?Last Taken ?Type triamcinolone acetonide 0.5 % 1 applic topical .COMPLEX #45 grams 02/22/19 Unknown Rx topical ointment cholecalciferol (vitamin D3) 50 50 mcg PO DAILY 05/21/24 06/03/24 History mcg (2,000 unit) capsule (Vitamin D3) Allergy/AdvReac Type Severity Reaction Status Date / Time aspirin (ASA) Allergy Intermediate Swelling Verified 06/04/24 06:38 Iodinated Contrast Media Allergy Mild Hives Verified 06/04/24 06:38 (contrast dye - iodinated) levofloxacin (From Levaquin) Allergy Other Verified 06/04/24 06:38 naproxen Allergy Other Verified 06/04/24 06:38 Penicillins Allergy Other Verified 06/04/24 06:38 Family History Father Cancer Prostate Sister Cancer cholangiocarcinoma- Bile duct Grandfather Cancer Prostate Surgical History S/P D&C (status post dilation and curettage) S/P appendectomy Social History household members: spouse current occupational status: employed current occupation: [employer] Smoking Status: Never smoker alcohol intake: never substance use type: does not use seatbelt use: always do you feel safe at home: Yes additional social history: - [employer]- Retired Review of Systems (Anesthesia) ROS Narrative System reviewed and no additional complaints, except as documented.
[2024-06-04] MEDS: 0.9% Normal Saline (1000mL) 1,000 ML 15 ML IV (06:42)
[2024-06-04 06:59] LABS: PTHIN 144 pg/mL (11-61)
--- NOTE | 2024-06-04 07:13 | PCM.HP.BLA ---
History and Physical Date of Admission: 06/04/24 Date of Service: 05/01/24 MR#: [id number] Acct: [id number] Name: DENISE DEL CID Rep #: [id number] : 1965 Provider: Dr. Errol Adams MD Age/Sex: 58/F Location: [facility] Status: Signed Intake Vital Signs 03/19/2507:43 05/02/2507:20 Height 5 ft 3 in 5 ft 3 in Weight: 250 lb BMI 44.2 BP 109/74 Blood Pressure Location Lt brachial Position Sitting Respiration 17 Pulse 69 Pulse Source Monitor Pulse Oximetry (%) 100 Oxygen Delivery Method room air Intake Visit Reasons: parathyroid adenoma Chief Complaint: parathyroid adenoma Is patient in pain?: No Allergies aspirin (ASA) Allergy (Intermediate, Verified 05/01/24 08:21) SwellingIodinated Contrast Media (contrast dye - iodinated) Allergy (Mild, Verified 05/01/24 08:21) Hiveslevofloxacin (From Levaquin) Allergy (Verified 05/01/24 08:21) Othernaproxen Allergy (Verified 05/01/24 08:21) OtherPenicillins Allergy (Verified 05/01/24 08:21) Other Medications ?Medication ?Instructions ?Recorded ?Confirmed ?Type triamcinolone acetonide 0.5 % 1 applic topical .COMPLEX #45 grams 02/22/19 05/01/24 Rx topical ointment cholecalciferol (vitamin D3) 25 50,000 mcg PO QWEEK 03/19/24 05/01/24 History mcg (1,000 unit) capsule PFSH Medical History Thyroid eye disease Primary hyperparathyroidism Hyperparathyroidism Screening for osteoporosis Surgical History S/P D&C (status post dilation and curettage) S/P appendectomy Family History Father Cancer ProstateSister Cancer cholangiocarcinoma- Bile ductGrandfather Cancer Prostate Social History household members: spouse current occupational status: employed current occupation: [employer] Smoking Status: Never smoker alcohol intake: never substance use type: does not use seatbelt use: always do you feel safe at home: Yes additional social history: - [employer]- Retired HPI HPI HPI: Patient is a 58-year-old female who presents for consultation related to diagnosis of primary hyperparathyroidism. They are referred from Dr. Salo Boles of endocrinology and PCP Ms. Leigha Wynn NP. Patient has a history of osteo pi?a given a T-score of -1.6 on DEXA imaging obtained 04/18/2024. Patient has no history of pathologic fractures. Patient has no history of kidney stones. Patient has no history of frequent dental caries or chipped teeth. Patient does have a history of brittle fingernails. Patient has no history of GERD. Patient has no history of hypertension. Additional symptoms include: Pertinent positives: Fatigue, constipation, memory difficulties/pertinent negatives: No depression, no concentration difficulty Patient has no history of prior radiation exposure. Patient has a family history of other endocrinopathies and she mentions that a niece required thyroid removal Patient [does/does not] have a diet high in dairy. Patient's current labs are calcium: 11.9 mg/dL (03/19/2024) range of 9.9-11.9 since 2019, Vitamin D: 32.7 ng/mL (03/19/2024, Ionized calcium: [Value]mg/dL [date], PTH: 204.1 pg/mL (03/19/2024)?singular value, Phosphorus: [Value] [date] Current medications include: Vitamin D supplementation with 2000 international units daily (previously 50,000 international units weekly). Imaging has been done thyroid ultrasound 03/28/2024 showing no thyroid nodules mild right thyroid lobe measuring 4.4 x 1.7 x 2.0 cm left thyroid lobe measuring 3.6 x 1.4 x 1.3 cm. No mention was made of parathyroid adenoma candidate. Patient then went on to have sestamibi imaging 04/09/2024 which showed probable left inferior parathyroid adenoma. Patient [has/has not] had renal imaging [on date] [which showed: Imaging findings]. ROS General General: Yes weight change and fatigue; No appetite, colon cancer, breast cancer or weakness Additional Details: Intentional wt loss. Using wt watchers HEENT HEENT: Yes difficulty swallowing; No eye injury, eye surgery, swollen glands or hoarseness Endo Endocrine: Yes thyroid disease; No diabetes mellitus, thyroid cancer, Hair loss, heat intolerance or cold intolerance Skin Skin: No rash or changing moles Musc Musculoskeletal: No back problems, arthritis, rheumatoid arthritis, gout or joint pain Cardio Cardiovascular: No murmur, pacemaker, heart disease, atrial fibrillation, high blood pressure, heart attack, heart stent, palpitations, shortness of breat with exertion or chest pain Psych Psychiatric: No depression, anxiety or hearing voices Resp Respiratory: No shortness of breath, No sleep apnea, Yes cough, No COPD, No asthma, No emphysema and No wheezing Gastro Gastrointestinal: Yes abdominal pain (due to uterus), No nausea or vomiting, No diarrhea, Yes constipation, No blood in stool, No acid reflux, No hemorrhoids, No ulcers, No gallbladder problem and No black,tarry stools [place] Hematologic: No blood thinners, No blood disorders, No bleeding, No anemia and No blood clots Neuro Neurologic: No system reviewed and no additional complaints, except as documented, No as per HPI, No abnormal gait, No abnormal hearing, No abnormal movements, No abnormal speech, No behavioral changes, No burning sensations, No confusion, No convulsions, No disequilibrium, No dizziness, No localized weakness, No frequent falls, No headache(s), No lack of coordination, No loss of vision, No memory loss, No numbness, No other visual disturbances, No radicular pain, No restless legs, No sensory deficit, No syncope, No tingling, No tremor(s), No weakness and No other Exam Const General: cooperative Orientation: alert, awake and oriented x3 Neck Thyroid: thyroid normal Other: No thyroid nodularity appreciated. Patient's neck is nontender. She has good range of motion. No cervical adenopathy appreciated Ultrasound exam was performed the patient's neck and identify of left inferior hypoechoic structure that lies just inferior to the patient's left inferior pole of her thyroid and measures 1.4 x 1.0 x 0.8 cm. There is diffuse vascularity with an apparent polar vessel feeding the structure but it is otherwise solid-appearing in composition Assessment and Plan Assessment and Plan (1) Primary hyperparathyroidism: Status: Acute Comment: Patient is a 58-year-old female who was initially diagnosed with vitamin D deficiency and hypercalcemia but vitamin D has been supplemented and patient has become persistently hypercalcemic with elevated parathyroid hormone. This is consistent with diagnosis of primary hyperparathyroidism. Further, patient does present with surgical indications given recent DEXA imaging that shows bone demineralization with presence of osteopenia and her calcium now nearly 12 mg/dL. Additionally, patient is motivated to undergo surgery because she has been told she is unable to proceed with a needed hysterectomy on the account of her high calcium. I held a lengthy conversation with patient and her to confirm their understanding of what hyperparathyroidism represents as a diagnostic entity and why surgery is undertaken (goal in this case to minimize any further bone demineralization and improve patient's fracture risk as well as her calcium). Hand drawings were made to illustrate the relevant points. All questions were answered from patient and her and they expressed understanding of the information conveyed. Lastly, I performed a bedside ultrasound of patient's neck and was able to identify a candidate parathyroid lesion in the left inferior position. This is concordant with patient's prior sestamibi imaging and a good indicator that patient may just have a single adenoma as the cause for her primary hyperparathyroidism. I offered a improve potential follow-up visit, however, given patient's motivations to improve the bone demineralization and also move forward with her hysterectomy she is interested in scheduling surgery today. The procedure for parathyroidectomy including use of intraoperative PTH monitoring was described in detail. Plan: Parathyroidectomy with intraoperative nerve and PTH monitoring as well as frozen section. Procedure to be plan for with outpatient disposition. Interval: Patient seen and reevaluated for surgery. She remains in stable state of health but reports she did observe her vitamin D level going down again to the 20s despite daily supplementation with 2000IU. Contacted Endo and advised to continue present dose. Procedure details and postprocedure expectations reviewed. All questions answered. Consents confirmed. Preop PTH noted. Proceed to OR for parathyroidectomy w intraop PTH monitoring as described above.
--- NOTE | 2024-06-04 07:30 | PARA_PTH ---
PATIENT: DENISE DEL CID LOC: [facility] U#:[id number] AGE/SX: 58/F ROOM: RE06/04/[address]: Dr. Errol Adams MD : 1965 BED: DIS: 06/04/2024 SPEC #: [id number] RECD: 06/04/24 09:54 STATUS: SOHAM RANCHO #: [id number] HARJINDER: 06/04/24 07:[address]: Errol Adams DEPT: SURGICAL PATHOLOGY RECD BY: Porfirio Rae ENTERED: 06/04/24 09:55 SP TYPE: PARATHY OTHR DR: Leigha Wynn, TREATMENT COUNSELOR-C Tissues: Parathyroid Procedures: Frozen Section (charge) Surgery Specimen Level IV HEADER OPERATION: Parathyroidectomy with IONM, PTH, frozen section PRE-OP DIAGNOSIS: Primary hyperparathyroidism TISSUE SUBMITTED: A- Left inferior parathyroid FROZEN SECTION DIAGNOSIS A. Left inferior parathyroid, parathyroidectomy: Parathyroid tissue (0.861gm). MS.mr 06/04/2024 MICROSCOPIC DIAGNOSIS A. Left inferior parathyroid, hyperparathyroidism, parathyroidectomy: * Parathyroid gland hyperplasia (0.861 gram). MICROSCOPIC DESCRIPTION Slides are reviewed. GROSS DESCRIPTION A. Received fresh for intraoperative consultation in a container labeled with the patient's name, date of , and left inferior parathyroid/FS and weight is a 0.861 g and 1.4 x 1.1 x 0.9 cm red and encapsulated portion of soft tissue. It is trisected to reveal orange-brown, uniform surfaces. A portion is submitted for frozen section analysis. The remaining remnants are submitted entirely as follows:A1. Frozen section remnantA2. Remainder of specimen [facility] 06-04-2024 CPT:04045,[id number]
[2024-06-04 09:10] LABS: PTHIN 790 pg/mL (11-61)
[2024-06-04 10:00] LABS: PTHIN 89 pg/mL (11-61)
[2024-06-04 10:00] LABS: PTHIN 68 pg/mL (11-61)
[2024-06-04 10:01] LABS: PTHIN 51 pg/mL (11-61)
[2024-06-04] MEDS: Bupivacaine 0.25% 30 ML Vial (10:08)
--- NOTE | 2024-06-04 10:12 | PCM.OPRPT ---
Operative Report (Standard) Operative Information Date of Procedure: 06/04/24 Pre-Operative Diagnosis: 1. Primary Hyperparathyroidism 2. Vitamin D deficiency Post-Operative Diagnosis: 1. Primary Hyperparathyroidism secondary to left inferior parathyroid adenoma 2. 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: Yes Telecommunications Sales Representative: Dai Carrero Tasks completed by events administrative assistant: Opening & closing Type of Anesthesia: General/Supplemental RN Documented Start/Stop Times: Operation Date: 06/04/24 07:30 Case Time Into Pre-Op 06/04/24 06:16 Out of Pre-Op 06/04/24 07:25 Anesthesia Start 06/04/24 07:28 Into Room 06/04/24 07:28 Procedure Start 06/04/24 08:22 Procedure End 06/04/24 10:13 Anesthesia End 06/04/24 10:25 Into Recovery 06/04/24 10:25 Out of Room 06/04/24 10:25 Out of Recovery 06/04/24 11:15 Into Phase II Recovery 06/04/24 11:16 Out of Phase II 06/04/24 14:01 Procedure Start Time: 08:22 Procedure Stop Time: 10:13 Select all DRAINS/GRAFTS/IMPLANTS that apply: None Estimated Blood Loss: 25 Specimen collected: Yes Description of specimen(s) removed: Left Inferior parathyroid gland Description of surgery: After appropriate identification in the preoperative holding area the patient was brought to the operating room where she was positioned supine on the operating room table. There she was induced with general endotracheal anesthetic. Of note, a preoperative PTH had been obtained and was reported as 144. Patient was then intubated using a Nims tube and glidescope to ensure coaptation between the vocal cords and the Nims tube electrodes. A resistance check confirmed appropriate function of the tube after the electrodes were properly connected to the monitoring box. Patient was then positioned in cervical extension, but adequately supporting the occiput. Ultrasound was used to examine the neck and re-localize the patient's suspicious parathyroid gland in the left neck to assist with incision planning. She was prepped and draped in the usual sterile fashion and a formal timeout followed to confirm patient and the procedure to be performed. A local block was produced with infiltration of local anesthetic and a 3.5cm transverse incision was made. This was deepened with the use of electrocautery through the platysma and subplatysmal flaps were raised superiorly and inferiorly. Ultimately the strap muscles were exposed and were divided along their raphe with electrocautery. I then used blunt dissection to free the sternothyroid muscle from the thyroid capsule of the left thyroid lobe deeply. The strap muscles were from one another as I proceeded with dissection laterally towards the patient's left internal jugular vein. Once this structure was sufficiently exposed I obtained a baseline central vein PTH level. This ultimately returned at 790. For the interim I returned to the patient's neck and elevated the inferior pole of the left thyroid lobe. Shortly after this mobilization it became apparent that patient had a large parathyroid gland located just deeply and inferiorly to this pole. Careful blunt dissection was employed to free the structure from its surrounding soft tissue attachments. Several overlying veins to the inferior thyroid pole were individually ligated to improve exposure. Then the target lesion was circumferentially freed so that it remained suspended by its vascular pole only. At this point a medium titanium clip was placed across the vascular pole and the gland was sharply amputated free. This specimen was passed off the field for frozen section confirmation. (Later, pathology telephoned the room to notify us that indeed this represented a large parathyroid gland weighing 861mg). As we awaited this result, I irrigated the surgical cavity with sterile water examined for hemostasis. Finding this intact, I also developed the plane between the thyroid capsule and the strap muscles to try to identify the second parathyroid gland on this side. The tracheoesophageal groove was also developed bluntly and I worked to confirm a signal on the left recurrent laryngeal nerve but I was not able to do so nor visualize the nerve. There did not seem to be justification for performing additional dissection of the nerve so I excepted this result. Left internal jugular ex vivo blood draws were made with a 22-gauge needle and syringe at 5, 10, and 15 minutes were 89, 68 and 51, respectively. While we waited for these results I returned to exploring the neck where I was convinced I had identified a grossly normal-appearing left superior gland posterior to the superior pole of the thyroid gland. Satisfied with this finding and our biochemical result, the case was terminated and hemostasis was once again confirmed in the surgical bed. Then I performed closure of the neck in layers. The strap muscles were run with a 3-0 Vicryl suture to reapproximate the raphe, but a gap was left in the inferior most portion of the strap muscles. Then the platysmal layer was reapproximated with interrupted 3-0 Vicryl. Additional local anesthetic was instilled. The skin was closed using a running 4-0 Monocryl in a subcuticular fashion. Steri-Strips and Telfa OpSite was applied as a dressing. Patient was then awoken from general anesthetic and taken to PACU for ongoing recovery. Surgical Findings: - Large left inferior parathyroid adenoma - Appropriate fall of PTH from central PTH assay Complications Complications: No Admit VTE Documentation VTE Mechan Device Prophylaxis: SCD's
--- NOTE | 2024-06-04 10:14 | EX.PCM.DISCH ---
Discharge Instructions Diet Discharge Diet: No restrictions (However recommend a liquid to soft diet initially postoperatively) Activity Discharge Activity: May Not Drive (While it remains difficult to check blind spots quickly) May shower in (days): 2 Ice area for (Minutes): 20 Lifting Restrictions: No lifting greater than 15 pounds for 2 weeks after surgery Dressing / Incision Call your doctor if your incision/area has: Continuous Slow Oozing, Sudden Increased Bleeding, Increased Pain/ Swelling, Increased Redness and Swelling at the incision site Call your doctor if you observe: Numbness or Tingling Remove Dressing in: 2 days (Please leave Steri-Strips intact until they fall off spontaneously or are taken off at your follow-up visit) Cleanse incision/area with: Soap & Water Follow Up Care Please Follow Up With: Errol Adams MD When: 7 days postop Test Results: Test results from this visit will be discussed in further detail at your follow-up appointment, if applicable. Discharge Plan Admission Primary Reason for Your Visit: Parathyroid surgery Attending Provider: Errol Adams Primary Care Provider: Leigha Wynn NP Instructions Additional Instructions / Restrictions: Please take a regular strength tums if feeling numbness or tingling of fingertips or about lips and notify Dr. Adams's office immediately. Print Language: Greenlandic Discharge Orders/Prescriptions Prescriptions: Continued cholecalciferol (vitamin D3) [Vitamin D3] 50 mcg (2,000 unit) capsule 50 mcg PO DAILY triamcinolone acetonide 0.5 % ointment 1 applic TOPICAL .COMPLEX Qty: 45 1RF Rx Instructions: 1 application topically to bilateral legs 1-2 x per day; Referrals / Follow Up: Leigha Wynn NP, [facility] MANAGER-C [Primary Care Provider] - Disposition Disposition (needs filled in before D/C Order can be placed): Home, Self Care
[2024-06-04 11:33] LABS: PTHIN 22 pg/mL (11-61)
--- NOTE | 2024-06-04 11:34 | PCM.POST.ANE ---
Anesthesia: Postop Eval I Current Vital Signs Temperature: 96.8 F Pulse Rate: 78 Blood Pressure: 126/74 Respiratory Rate: 14 Pulse Ox: 98 Oxygen Delivery Method: Room Air Assessment Airway patent: Yes Spontaneous unlabored respirations: Yes Mental status: Awake and Calm nausea: No Vomiting: No Anesthesia Complication: No Fluid Hydration Crystalloid volume administer (ml): 1,500 Total IV fluid infused: 1,500 Progress Note Anesthesia document: Postop Eval 1 completed: Yes
--- NOTE | 2024-06-04 19:16 | POSTOPAN2_ITS ---
Anesthesia Postop Eval I Sum Postop Eval Completion status Anesthesia document: Postop Eval 1 completed: Yes Anesthesia Postop Eval I Summary Anesthesia Postop Eval I Summary: Anesthesia Postop Eval I: Assessment Summary Airway patent Yes 06/04/24 11:35 [email or web address] Spontaneous unlabored Yes 06/04/24 11:35 [email or web address] respirations Mental status Awake,Calm 06/04/24 11:35 [email or web address] nausea No 06/04/24 11:35 [email or web address] Vomiting No 06/04/24 11:35 [email or web address] Anesthesia Postop Eval I: Fluid Summary Crystalloid volume administer 1,500 06/04/24 11:35 [email or web address] (ml) Colloids volume administered ( ml) Blood Product volume administered (ml) Total IV fluid infused 1,500 06/04/24 11:35 [email or web address] Anesthesia Postop Eval I: Summary Notes Anesthesia Complication No 06/04/24 11:35 [email or web address] Anesthesia Complication Comment: Post-operative progress note Anesthesia: Postop Eval II Evaluation Mental status: Awake and Calm Pain Level: 1 nausea: No Vomiting: No Complications Anesthesia Complication: No
--- NOTE | 2024-06-04 19:16 | PCM.POSTANE2 ---
Anesthesia Postop Eval I Sum Postop Eval Completion status Anesthesia document: Postop Eval 1 completed: Yes Anesthesia Postop Eval I Summary Anesthesia Postop Eval I Summary: Anesthesia Postop Eval I: Assessment Summary Airway patent Yes 06/04/24 11:35 [email or web address] Spontaneous unlabored Yes 06/04/24 11:35 [email or web address] [email or web address] respirations Mental status Awake,Calm 06/04/24 11:35 [email or web address] nausea No 06/04/24 11:35 [email or web address] [email or web address] Vomiting No 06/04/24 11:35 [email or web address] Anesthesia Postop Eval I: Fluid Summary Crystalloid volume administer 1,500 06/04/24 11:35 [email or web address] [email or web address] (ml) Colloids volume administered ( ml) Blood Product volume administered (ml) Total IV fluid infused 1,500 06/04/24 11:35 [email or web address] Anesthesia Postop Eval I: Summary Notes Anesthesia Complication No 06/04/24 11:35 [email or web address] Anesthesia Complication Comment: Post-operative progress note Anesthesia: Postop Eval II Evaluation Mental status: Awake and Calm Pain Level: 1 nausea: No Vomiting: No Complications Anesthesia Complication: No
== END 2024-06-04 14:01 | disposition home or self-care (01) ==
LOC: SDC 06:08 → AC 06:08
PROVIDERS: PCP Nurse Practitioner Family; Referring Provider Surgery; Visit Provider Surgery
PROC: (CPT 60500; principal; 2024-06-04 07:15)
DX: D35.1 Benign neoplasm of parathyroid gland (principal); E21.0 Primary hyperparathyroidism; E55.9 Vitamin D deficiency, unspecified
CPT/HCPCS: 60500; 00320; 83970; 88305; 88331; 93005; A4648; J2405

== ENCOUNTER → 2024-06-11 | Outpatient (CLI) | payer SELFPAY ==
[2024-06-11 10:30] LABS: PTHIN 56 pg/mL (11-61)
[2024-06-11 10:31] LABS: Calcium 9.1 mg/dL (7.6-11.0)
[2024-06-11 13:58] LABS: Vitamin D,25 Hydroxy 21.3 ng/mL (30-100)
== END | disposition home or self-care (01) ==
LOC: PAVLAB 09:18
PROVIDERS: PCP Nurse Practitioner Family; Referring Provider Surgery; Visit Provider Surgery
DX: Z98.890 Other specified postprocedural states (principal); Z90.89 Acquired absence of other organs
CPT/HCPCS: 36415; 82306; 82310; 82652; 83970

== ENCOUNTER → 2024-07-15 | Outpatient (CLI) | payer SELFPAY ==
--- NOTE | 2024-07-15 13:06 | ECHOD_ITS ---
Reason For Study Reason For Study: Abn EKG Procedure This was a 2D Doppler, Color Flow transthoracic echocardiogram. Exam performed in department. Left Ventricle Normal LV size. The left ventricular ejection fraction is 60 %. Normal diastology for age. No regional wall motion abnormalities noted. Right Ventricle Normal RV size. Normal systolic function. Atria The left atrium is mildly enlarged. Normal right atrium. Mitral Valve Normal mitral valve. Tricuspid Valve Normal tricuspid valve. Mild (1+) tricuspid valve insufficiency. Pulmonary artery systolic pressure is 28 mmHg. Pulmonic Valve Normal pulmonic valve. Great Vessels Normal aortic root. The pulmonary artery is normal size. Normal inferior vena cava. Pericardium/Pleural No pericardial effusion. MMode/2D Measurements & Calculations LVIDd: 4.9 cm IVSd: 0.84 cm Ao root diam: 3.0 cm LVIDs: 3.0 cm LVPWd: 0.87 cm RVDd: 3.7 cm FS: 39.6 % LAV(MOD-bp): 65.6 ml LVAd ap4: 30.6 cm2 LVAd ap2: 26.3 cm2 LAV(MOD-bp) Indexed: 31.6 ml/m2 LVLd ap4: 8.2 cm LVLd ap2: 7.6 cm LAV(MOD-sp2): 54.7 ml EDV(MOD-sp4): 98.9 ml EDV(MOD-sp2): 78.6 ml LAV(MOD-sp4): 67.0 ml EDV(sp4-el): 97.1 ml EDV(sp2-el): 77.2 ml LVAs ap4: 16.9 cm2 LVAs ap2: 15.6 cm2 LVLs ap4: 6.8 cm LVLs ap2: 6.5 cm ESV(MOD-sp4): 36.0 ml ESV(MOD-sp2): 32.4 ml ESV(sp4-el): 35.2 ml ESV(sp2-el): 31.6 ml EF(MOD-sp4): 63.6 % EF(MOD-sp2): 58.8 % EF(sp4-el): 63.7 % SV(MOD-sp4): 62.9 ml SV(MOD-sp2): 46.2 ml SV(sp4-el): 61.8 ml SI(MOD-sp4): 30.3 ml/m2 SI(MOD-sp2): 22.3 ml/m2 LA A4 area: 22.9 cm2 LA dimension(2D): 3.7 cm RA A4 area: 17.6 cm2 TAPSE: 2.7 cm Time Measurements MV dec time: 0.22 sec Doppler Measurements & Calculations MV E max nacho: 106.7 cm/sec Lat Peak E' Nacho: 15.3 cm/sec Med Peak E' Nacho: 10.1 cm/sec MV A max nacho: 74.8 cm/sec E/E' lat: 7.0 E/E' med: 10.6 MV E/A: 1.4 Ao V2 max: 144.9 cm/sec LV V1 max: 129.9 cm/sec MV dec slope: 484.4 cm/sec2 Ao max P.4 mmHg LV V1 max P.8 mmHg Ao V2 mean: 101.0 cm/sec LV V1 mean P.5 mmHg Ao mean P.7 mmHg LV V1 mean: 86.2 cm/sec Ao V2 VTI: 41.2 cm LV V1 VTI: 34.5 cm AV (velocity ratio): 0.84 PA V2 max: 100.3 cm/sec TR max nacho: 244.8 cm/sec TR max P.0 mmHg ECHO/Echo Complete Interpretation Summary Normal LV size. The left ventricular ejection fraction is 60 %. Pulmonary artery systolic pressure is 28 mmHg. Structurally normal valves. Ordering Physician: Leigha Wynn Referring Physician: Leigha Wynn Performed By: Kayce Barcenas RDCS
== END | disposition home or self-care (01) ==
PROVIDERS: PCP Nurse Practitioner Family; Referring Provider Nurse Practitioner Family; Visit Provider Nurse Practitioner Family
DX: R94.31 Abnormal electrocardiogram [ECG] [EKG] (principal)
CPT/HCPCS: 93306

== ENCOUNTER → 2024-09-03 | Outpatient (CLI) | payer SELFPAY ==
[2024-09-03 13:32] LABS: Vitamin D,25 Hydroxy 30.0 ng/mL (30-100)
== END | disposition home or self-care (01) ==
LOC: LAB.FUTURE 11:54 → LAB 11:55
PROVIDERS: PCP Nurse Practitioner Family; Referring Provider Nurse Practitioner Family; Visit Provider Nurse Practitioner Family
DX: E55.9 Vitamin D deficiency, unspecified (principal)
CPT/HCPCS: 36415; 82306

== ENCOUNTER → 2024-09-20 | Outpatient (CLI) | payer SELFPAY ==
--- NOTE | 2024-09-20 16:15 | EMB_PTH ---
PATIENT: DENISE DEL CID [facility] U#:[id number] AGE/SX: 58/F ROOM: RE09/20/[address]: Dr. So Jamsion DO : 1965 BED: DIS: 09/20/2024 SPEC #: [id number] RECD: 09/20/24 17:00 STATUS: SOHAM RANCHO #: [id number] HARJINDER: 09/20/24 16:[address]: So Jamison DEPT: SURGICAL PATHOLOGY RECD BY: Porfirio Rae ENTERED: 09/23/24 11:09 SP TYPE: ENDOM BX/C QI DR: Leigha Wynn, MANAGER HARBOR-C Tissues: A - Endometrium, NOS Procedures: Surgery Specimen Level IV HEADER OPERATION: EMB PRE-OP DIAGNOSIS: Simple endometrial hyperplasia without atypia TISSUE SUBMITTED: A- Endometrial lining MICROSCOPIC DIAGNOSIS A. Endometrium, "simple hyperplasia without atypia", biopsy - Scant superficial epithelium - see note. Note: A very small amount of superficial epithelium is present, which may be of endometrial and/or endocervical origin. Clinical correlation is necessary to assess the adequacy of this sampling. MICROSCOPIC DESCRIPTION Slides are reviewed. GROSS DESCRIPTION A. Received in formalin labeled with the patient's name and date of are flecks of translucent mucoid material and possible tissue which is entirely submitted in 1 cassette, for cellblock preparation. Entirety of the specimen may not survive processing. AR 09/23/2024 CPT:73934
== END | disposition home or self-care (01) ==
LOC: LABSPEC 09-23 07:45
PROVIDERS: PCP Nurse Practitioner Family; Referring Provider Obstetrics & Gynecology; Visit Provider Obstetrics & Gynecology
DX: N85.00 Endometrial hyperplasia, unspecified (principal)
CPT/HCPCS: 88305

== ENCOUNTER 2024-10-11 17:14 | Observation (INO) | payer SELFPAY ==
[2024-10-11] VITALS (9 sets, daily range): BP systolic 101–114; BP diastolic 50–73; PULSE 48–70; RESP 16–18; TEMP 36.6–36.8; O2SAT 96–100; BMI 39.4; BMI 39.7
--- NOTE | 2024-10-11 17:22 | CT_ITS ---
PROCEDURE: STROKE BRAIN/HEAD WITHOUT CONT 10/11/2024 REASON FOR EXAM: NEURO DEFICIT, ACUTE, STROKE SUSPECTED TECHNIQUE: STROKE BRAIN/HEAD WITHOUT CONT Coronal and Sagittal reconstruction series were provided. One or more dose reduction techniques were used (e.g., Automated exposure control, adjustment of the mA and/or kV according to patient size, use of iterative reconstruction technique. RADIATION DOSE SUMMARY: CTDlvol: 45 mGy DLP: 813 mGycm COMPARISON: None available. FINDINGS: There is no extra-axial or intra-axial intracranial hemorrhage. No mass effect or midline shift is seen. The ventricles, sulci, and cisterns are normal in size and shape for the patient's age. There is normal wolf-white matter differentiation. The posterior fossa is grossly unremarkable. The skull is unremarkable. Visualized paranasal sinuses are clear. The mastoid air cells show normal translucency. CT/STROKE Brain/Head without Cont IMPRESSION: No intracranial hemorrhage. No mass effect or midline shift. Reading Location[facility]
--- NOTE | 2024-10-11 17:22 | EKG12_ITS ---
Test Reason : STROKE Blood Pressure : */* mmHG Vent. Rate : 62 BPM Atrial Rate : 62 BPM P-R Int : 162 ms QRS Dur : 94 ms QT Int : 430 ms P-R-T Axes : 35 0 43 degrees QTcB Int : 436 ms Normal sinus rhythm Normal ECG Confirmed by YOUNG HAUSER, LUCIE ([id number]), photography editor LIN DAS ([id number]) on 10/14/2024 9:17:39 AM Referred By: Confirmed By: LUCIE VIDAL MD
--- NOTE | 2024-10-11 17:25 | ED.VIS.STROK ---
HPI History of Present Illness Chief Complaint: Headache Informant: patient and spouse/S.O. Onset/Context/Timing Onset: Today Context: Sudden Onset (Last known well around 1:30 PM.) Timing: Intermittent Quality and Location: Positive for Slurred Speech, Expressive Aphasia and - (Visual changes) Current Severity: Mild Maximum Severity: Moderate Narrative Narrative: 58-year-old female history of prediabetes. States she was at the library around 130 she started getting visual changes where she said she thought she saw like either spots or lights. When she got home her said her speech was off she was having trouble putting her words together it was hard to understand her. She is not complaining of a headache. Speech is returned and the visual changes have resolved. She has never had a stroke before. She is on no blood thinners. She denies any recent head trauma. She does have an iodine dye allergy Prior similar symptoms: No Recent Illness/Hospitalization: No PFSH PFSH Medical History Wears glasses Arthritis Scoliosis Non-smoker History of edema Thyroid eye disease Primary hyperparathyroidism Hyperparathyroidism Screening for osteoporosis Home Medications ?Medication ?Instructions ?Recorded ?Last Taken ?Type glucosamine HCl 500 mg tablet 500 mg PO QDAY 09/20/24 Unknown History ergocalciferol (vitamin D2) 1,250 1,250 mcg PO QWEEK 10/11/24 Unknown History mcg (50,000 unit) capsule Allergy/AdvReac Type Severity Reaction Status Date / Time aspirin (ASA) Allergy Intermediate Swelling Verified 09/20/24 15:52 Iodinated Contrast Media Allergy Mild Hives Verified 09/20/24 15:52 (contrast dye - iodinated) levofloxacin (From Levaquin) Allergy Other Verified 09/20/24 15:52 naproxen Allergy Other Verified 09/20/24 15:52 Penicillins Allergy Other Verified 09/20/24 15:52 Family History Father Cancer Prostate Sister Cancer cholangiocarcinoma- Bile duct Grandfather Cancer Prostate Surgical History S/P parathyroidectomy S/P D&C (status post dilation and curettage) S/P appendectomy Social History household members: spouse current occupational status: employed current occupation: [employer] Smoking Status: Never smoker alcohol intake: never substance use type: does not use seatbelt use: always do you feel safe at home: Yes additional social history: - [employer]- Retired ROS ROS ED ROS Narrative Denies recent illness. Headache. Constitutional Constitutional ED: Denies chills or fever(s) Eyes Eyes: Denies blurry vision ENT ENT ED: Denies ear pain Cardiovascular Cardiovascular: Denies chest pain Respiratory/Chest Respiratory/Chest: Denies cough or dyspnea Gastrointestinal Gastrointestinal: Denies abdominal pain, constipation, diarrhea, melena, nausea or vomiting Genitourinary Genitourinary ED: Denies dysuria or hematuria Musculoskeletal Musculoskeletal: Denies arthralgias or back pain Integumentary Denies abscess Neurologic Neurologic: Reports headache(s); Denies paresthesias or weakness Psychiatric Psychiatric: Denies anxiety Endocrine Endocrinology: Denies polydipsia or polyphagia Hematologic/Lymphatic Hematologic/Lymphatic: Denies easy bleeding, easy bruising or lymphadenopathy Allergic/Immunologic Allergic/Immunologic ED: Denies mouth swelling, urticaria or other EXAM Physical Exam Narrative Exam Narrative: 58-year-old female in triage room 1 I was called out to see. Vital signs are stable afebrile. sitting in triage room with her. HEENT exam pupils round react light. Extra motions are intact. No facial droop. Normal speech. No trauma. Neck nontender no lymphadenopathy. Lungs clear to auscultation. Heart regular rhythm rate about 70 no murmur. Chest wall ribs nontender. Abdomen soft nontender. Moving all 4 extremities. Normal can filling room sweeper strength. Normal dorsi plantarflexion. Back nontender. Neurologically she is awake alert. Answering questions following commands. Her NIH score is at worst a 1. Currently she has no facial droop. She has normal motor strength. Normal sensation. Her speech may not be totally back to normal. But is easily understood and currently there is no dysarthria. Const Vital Signs: 10/11/24 17:16 10/11/24 17:22 10/11/24 17:22 Temperature 98.1 F Temperature Source Temporal Pulse Rate 70 59 L Respiratory Rate 16 16 Blood Pressure 101/53 L 109/64 Blood Pressure Mean 69 79 Pulse Ox 100 99 99 Oxygen Delivery Method Room Air Room Air Room Air 10/11/24 17:52 10/11/24 18:52 10/11/24 19:30 Temperature Temperature Source Pulse Rate 58 L 57 L 49 L Respiratory Rate 16 16 18 Blood Pressure 114/73 105/53 L 106/50 L Blood Pressure Mean 86 70 68 Pulse Ox 99 98 97 Oxygen Delivery Method Room Air Room Air Room Air 10/11/24 19:30 Temperature 98.2 F Temperature Source Pulse Rate 49 L Respiratory Rate 18 Blood Pressure 106/50 L Blood Pressure Mean 68 Pulse Ox 97 Oxygen Delivery Method Positive well nourished and well developed; Negative for cachectic, contractures or unkempt General Appearance ED: well developed; Negative for unkempt, cachectic, contractures or NAD Nutritional Appearance: Negative for cachectic HEENT Reports moist mucous membranes Eyes PERRL and EOMs intact bilaterally General Eye ED: Negative for pale conjunctiva Neck no lymphadenopathy, supple and no JVD General: Negative for tenderness Chest Wall inspection of chest normal and palpation of chest normal Resp normal respiratory effort and clear to auscultation bilaterally Cardio no murmurs Rate: regular rate Rhythm: regular rhythm GI normal to inspection, nondistended, normoactive bowel sounds, soft to palpation, non-tender, non-distended and no masses Auscultation: normoactive bowel sounds Palpation: Negative for tender or guarding Back/Spine no CVA tenderness General Back: Negative for CVA tenderness Cervical Spine: Negative for cervical spine tenderness Thoracic Spine / Upper Back: Negative for thoracic spinal tenderness Lumbar Spine / Lower Back: Negative for lumbar spinal tenderness Extremity normal to inspection General Extremety ED: Negative for deformity, edema or tenderness General Extremity: Negative for deformity or edema Neuro oriented x3 and CN's II-XII intact bilaterally Sensorium / Orientation: alert, oriented to person, oriented to place and oriented to time; Negative for orientation impaired, confused, lethargic or stuporous Speech: Negative for speech normal Motor Exam: strength 5/5 throughout Psych mental status grossly normal Appearance: Negative for unkempt Mood & Affect: Negative for depressed, anxious or tearful Skin no wounds General Skin Exam: Negative for jaundice Lesions: no lesions Rashes: no rashes MDM MDM MDM Narrative Medical decision making narrative: 58-year-old female had visual change and then developed dysarthria. Currently her symptoms have mainly resolved and maybe mild slurred speech currently. NIH at worst is a 1. Onset of symptoms around 130 which is around 3 to 4 hours ago. Patient was made a stroke team protocol. She be taken to CAT scan. I will get a CTA head and neck but she has not IV iodine contrast allergy so we will pretreat her before we get that done. Repeat exam patient is doing well at 6:34 PM. I had lengthy discussion with her and her family. Her exam currently is normal her NIH is 0. Her speech is completely back to normal. Most likely this was a TIA. Possibility this could have been headache causing her symptoms also. The initial CT does not show any acute process. CTA is pending due to her contrast allergy we did pretreat her. She will be admitted once I get the CTA back. She will be given Toradol for her headache. History & Record Review Discussion w/independent historian: Patient Additional record(s) reviewed:: Prior inpatient record, Prior outpatient record, Prior ED visit and Prior labs Lab Data Attestation: I reviewed the patient's lab results. Lab results narrative: CBC shows a white count of 5 H&H 13 and 40. Platelets 288. Electrolytes show sodium 141. Gap 11. BUN 28 creatinine 0.9. Glucose 109. Initial troponin is 10. CT brain no acute abnormality CTA read pending. CTA head and neck was read as normal by the radiologist. Labs: Laboratory Results - last 24 hr 10/11/24 10/11/24 10/11/24 17:21 17:30 19:26 WBC 5.8 RBC 4.21 Hgb 13.3 Hct 40.3 MCV 95.7 MCH 31.6 MCHC 33.0 RDW Std Deviation 46.7 H RDW Coeff of Luisa 13.3 Plt Count 288 MPV 10.9 Immature Gran % (Auto) 0.300 Neut % (Auto) 62.1 Lymph % (Auto) 27.4 Owsley % (Auto) 7.1 Eos % (Auto) 2.4 Baso % (Auto) 0.7 Absolute Neuts (auto) 3.6 Absolute Lymphs (auto) 1.59 Nucleated RBC % 0 PT 13.8 INR 1.0 APTT 34.4 Sodium 141 Potassium 4.0 Chloride 106 Carbon Dioxide 24.3 Anion Gap 11 BUN 28 H Creatinine 0.92 Estim Creat Clear Calc 74.73 Est GFR (MDRD) Non-Af 72 BUN/Creatinine Ratio 30.0 H Glucose 109 H Calcium 9.2 Troponin T High Sens 10 Troponin T Hi Sens 2 Hr 7 POC Glucose 139 H Radiography Diagnostic Testing: Clinical Impression(s) from Imaging Studies Brain CT 10/11/24 17:22 IMPRESSION: No intracranial hemorrhage. No mass effect or midline shift. Reading [facility] Head/Neck CTA 10/11/24 19:10 IMPRESSION: Normal CTA of the head and neck. Reading Location: [id number] Rhythm Strip Rhythm Strip: Sinus Rhythm Rate: 62 Ectopy: None EKG Initial EKG: Attestation: I personally reviewed and interpreted this EKG as follows: Interpretation: Sinus Rhythm and No Acute Injury Pattern Comments: Normal sinus rhythm rate of 62 no acute signs of CO no ischemia nor dysrhythmia unchanged from prior EKG from April. Discharge Plan Dx/Rx/DC Orders Clinical Impression: Brain TIA, Slurred speech, Headache Disposition Disposition: Acute Care Hospital [facility] NIHSS NIHSS 1a. Level of Consciousness: 0 - Alert; keenly responsive 1b. LOC Questions: 0 - Answers BOTH questions correctly 1c. LOC Commands: 0 - Performs BOTH tasks correctly 2. Best Gaze: 0 - Normal 3. Visual: 0 - No visual loss 4. Facial Palsy: 0 - Normal symmetrical movements 5a. Left Arm: 0 - No drift; arm holds 90 (or 45) degrees for full 10 seconds 5b. Right Arm: 0 - No drift; arm holds 90 (or 45) degrees for full 10 seconds 6a. Left Le - No drift; leg holds 30-degree position for full 5 seconds 6b. Right Le - No drift; leg holds 30-degree position for full 5 seconds 7. Limb Ataxia: 0 - Absent 8. Sensory: 0 - Normal; no sensory loss 9. Best Language: 1 - [id number] aphasia; 10. Dysarthria: 0 - Normal 11. Extinction and Inattention: 0 - No abnormality Total: 1 Stroke Questions Stroke Team Activated: Yes Reviewed Inclusion/Exclusion criteria: Yes Informed the patient and/or family of all associated risks, benefits, & alternatives to IV Thrombolytic Therapy. Patient and/or family voluntarily consent to the administration of IV Thrombolytic Therapy: Yes
[2024-10-11] MEDS: DiphenhydrAMINE 50 MG/ML Syringe 25 MG IV (17:57)
[2024-10-11 18:09] LABS: Hematocrit 40.3 % (37-47); Hemoglobin 13.3 g/dL (12.0-15.0); Immature Granulocytes Count 0.020 X10^3/uL (0.0-0.0); Mean Corp Hgb Conc 33.0 g/dL (32-36); Mean Corpuscular Volume 95.7 fL (81-99); Mean Platelet Vol. 10.9 fl (6.2-12.0); NRBC Flagged by Analyzer 0 % (0-5); Platelet Count 288 K/mm3 (150-450); RBC Distribution Width CV 13.3 % (11.6-14.6); RBC Distribution Width SD 46.7 fl (35.1-43.9); Red Blood Count 4.21 M/mm3 (4.2-5.4); White Blood Count 5.8 K/mm3 (4.4-11.0)
[2024-10-11 18:19] LABS: Anion Gap 11 (5-15); BUN 28 mg/dL (4-19); BUN/Creat Ratio 30.0 RATIO (10-20); Calcium,Total 9.2 mg/dL (7.6-11.0); Carbon Dioxide 24.3 mmol/L (21.0-32.0); Chloride 106 mmol/L (98-108); Estimated Creatinine Clearance 74.73 ml/min (50-250); Glucose 109 mg/dL (70-99); Potassium 4.0 mmol/L (3.3-5.1); Troponin T High Sensitivity 10 ng/L (<=14)
[2024-10-11 18:50] LABS: Prothrombin Time (Protime)PT. 13.8 SECONDS (11.7-14.9)
[2024-10-11 18:51] LABS: Partial Thromboplast Time 34.4 Seconds (24.1-36.2)
--- NOTE | 2024-10-11 19:10 | CT_ITS ---
PROCEDURE: STROKE CTA HEAD AND NECK W/CON 10/11/2024 REASON FOR EXAM: STROKELIKE SYMPTOMS SLURRED SPEECH. TECHNIQUE: STROKE CTA HEAD AND NECK W/CON Multiplanar Sagittal and Coronal images were obtained. 3D and MIP post processing was performed. CONTRAST: Isovue 370 VOLUME: 80 mL One or more dose reduction techniques were used (e.g., Automated exposure control, adjustment of the mA and/or kV according to patient size, use of iterative reconstruction technique). RADIATION DOSE SUMMARY: DLP: 1506.98 mGycm COMPARISON: None. FINDINGS: CTA HEAD: Widely patent intracranial arterial vasculature. No large vessel occlusion, flow-limiting stenosis, saccular aneurysm, or vascular malformation identified. Relatively hypoplastic right DONNA A1 segment compared to the left, anatomic variant. Patent anterior communicating artery. CTA NECK: Common origin of left common carotid and right innominate artery. Cervical carotid and codominant vertebral arteries are widely patent, normal in course and caliber. No aneurysm or dissection. CT/STROKE CTA Head AND Neck W/Con IMPRESSION: Normal CTA of the head and neck. Reading Location: [id number]
[2024-10-11] MEDS: Ketorolac 30 MG/ML Syringe IV (19:34)
[2024-10-11 20:07] LABS: Troponin T High Sens 2 HR 7 ng/L (<=14)
--- OUTSIDE RECORDS SUMMARY | 2024-10-11 20:10 | XMS RPT_ITS | CCD ---
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 Salo Boles MD Attending Provider Dr. Salo Boles MD Referring Provider Dr. Errol Adams MD Attending Provider Wynn [employer]OM LEATH[employer]ODU[employer] MAKER-C, Leigha Attending Provider [phone] Dr. Maikol Sanchez MD Attending Provider Dr. Errol Adams MD Referring Provider Dr. Errol Adams MD Other Provider [phone] Wynn CUSTOM LEATH[employer] MAKER-C, Leigha Primary Care Provider Wynn [employer]OM LEATHER [employer]ODU[employer] MAKER-C, Leigha Referring Provider Dr. Errol Adams MD Attending Provider Wynn C[employer]OM LEATHER [employer] MAKER-C, Leigha Primary Care Provider Wynn [employer]OM LEATH[employer]ODU[employer] MAKER-C, Leigha Referring Provider [phone] Wynn C[employer]OM LEATHER PRODU[employer] MAKER-C, Leigha Attending Provider Dr. So Jamison DO Attending Provider Wynn [employer]OM LE[employer] MAKER-C, Leigha Primary Care Provider Bryan HAUSER, Dr. Norton Referring Provider Daniel HAUSER, Dr. Lassiter Attending Provider Phi Alonso DO, Dr. Rizzo Attending Provider Phi Alonso DO, Dr. Rizzo Referring Provider Errol Adams Consulting Unavailable Errol Adams Referring Unavailable Errol Adams Attending Unavailable Wynn, Leigha Primary Care Unavailable VandSo Greenwood Referring Unavailabl e Vande Velde, So Attending Unavailabl e Wynn, Leigha Primary Care Unavailable So Jamison Referring Unavailabl e Vande Velalli, So Attending Unavailabl e Wynn, Leigha Primary Care Unavailable Errol Adams Attending Unavailable Errol Adams Referring Unavailable Wynn, Leigha Primary Care Unavailable Ramana, Salo Referring Unavailable Wynn, Leigha Primary Care Unavailable Ramana, Salo Attending Unavailable So Jamison Attending Unavailabl e Wynn, Leigha Primary Care Unavailable Wynn, Leigha Referring Unavailable BorErrol costa Referring Unavailable Wynn, Leigha Primary Care Unavailable Maikol Sanchez Attending Unavailable Wynn, Leigha Attending Unavailable Wynn, Leigha Primary Care Unavailable Wynn, Leigha Attending Unavailable Wynn, Leigha Primary Care Unavailable Wynn, Leigha Primary Care Unavailable Wynn, Leigha Referring Unavailable Wynn, Leigha Attending Unavailable Gibson CUSTOM LEATHER PRODUCTS MAKER, Marybeth Referring Unavailable Gibson CUSTOM LEATHER PRODUCTS MAKER, Marybeth Attending Unavailable Wynn, Leigha Primary Care Unavailable Errol Adams Referring Unavailable Errol Adams Attending Unavailable Wynn, Leigha Primary Care Unavailable Vande Velalli, So Attending Unavailabl e Wynn, Leigha Primary Care Unavailable Ramana, Salo Referring Unavailable Wynn, Leigha Primary Care Unavailable Ramana, Salo Attending Unavailable Ramana, Salo Attending Unavailable Ramana, Salo Referring Unavailable Wynn, Leigha Primary Care Unavailable So Jamison Attending Unavailabl e Fracasso, Eron Referring Unavailable Wynn, Leigha Primary Care Unavailable Radha CUSTOM LEATHER PRODUCTS MAKER, Marybeth Attending Unavailable Alekcasso, Eron Referring Unavailable Normansso, Eron Primary Care Unavailable Errol Adams Attending Unavailable Wynn, Leigha Referring Unavailable Wynn, Leigha Primary Care Unavailable Ramana, Salo Attending Unavailable Ramana, Salo Referring Unavailable Wynn, Leigha Primary Care Unavailable Radha CUSTOM LEATHER PRODUCTS MAKER, Marybeth Referring Unavailable Gibson CUSTOM LEATHER PRODUCTS MAKER, Marybeth Attending Unavailable Eron Daigle Primary Care Unavailable Radha CUSTOM LEATHER PRODUCTS MAKER, Marybeth Referring Unavailable Radha CUSTOM LEATHER PRODUCTS MAKER, Marybeth Attending Unavailable Wynn, Leigha Primary Care Unavailable Errol Adams Attending Unavailable Wynn, Leigha Primary Care Unavailable Wynn, Leigha Referring Unavailable Wynn, Leigha Referring Unavailable Wynn, Leigha Primary Care Unavailable Ramana, Salo Attending Unavailable Wynn, Leigha Primary Care Unavailable Maikol Sanchez Attending Unavailable Wynn, Leigha Attending Unavailable Wynn, Leigha Primary Care Unavailable Wynn, Leigha Referring Unavailable Wynn, Leigha Primary Care Unavailable Wynn, Leigha Referring Unavailable Wynn, Leigha Attending Unavailable Wynn, Leigha Attending Unavailable Wynn, Leigha Primary Care Unavailable Allergies Allergy Classification Reported Allergen(s) Allergy Type Date of Onset Reaction(s) Facility (1 source) Codeine Drug Allergy 12-10-19 15 [place], [place] (1 source) Iodine Drug Allergy 12-10-19 15 [place] (8 sources) Naproxen Drug Allergy 12-20-19 15 Shortness Of Breath [place], [place] (1 source) Penicillins Propensity to adverse reactions to drug 12-10-19 15 [place], [place] (7 sources) Aspirin Drug Allergy 05-22-19 25 [facility] Comment on above: swelling of hands (7 sources) levoFLOXacin Drug Allergy 05-22-19 25 Other [facility] (7 sources) Penicillins Allergy to substance 05-22-19 25 Other [facility] (7 sources) Triiodobenzoic Acids Allergy to substance 05-22-19 25 [facility] (1 source) Aspirin Drug Allergy 09-21-19 [facility] (1 source) levoFLOXacin Drug Allergy 09-21-19 [facility] (1 source) Naproxen Drug Allergy 09-21-19 [facility] (1 source) Penicillins Drug allergy (disorder) 09-21-19 [facility] (1 source) Iodinated Contrast Media Drug allergy (disorder) 09-21-19 25 [facility] Repository Medications Current Medications Medication Drug Class(es) Dates Sig (Normalized) Sig (Original) acetaminophen 325 mg oral tablet (1 source) Start: 04-09-2017 take 2 tablets by mouth every four hours as needed for pain acetaminophen (TYLENOL) 325 MG tablet Take 2 tablets by mouth every 4 hours as needed for Pain 120 tablet 3 04/09/2017 Active cholecalciferol 1.25 mg oral capsule (20 sources) Vitamin D Start: 09-20-2024 take 1 capsule by mouth every week Cholecalciferol (Vitamin D3) 1,250 mcg (50,000 unit) capsule Active 1250 ug PO EVERY WEEK September 20, 2024 12:00am Start: 05-21-2024 End: 09-20-2024 take 1 capsule by mouth once daily Cholecalciferol (Vitamin D3) (Vitamin D3) 50 mcg (2,000 unit) capsule Discontinued 50 ug PO DAILY May 21, 2024 12:00am September 20, 2024 3:59pm Start: 03-19-2024 End: 05-21-2024 take 1 capsule by mouth every week Cholecalciferol (Vitamin D3) 25 mcg (1,000 unit) capsule Discontinued 98255 ug PO EVERY WEEK March 19, 2024 9:52am May 21, 2024 11:05am Start: 11-28-2023 End: 03-19-2024 take 1 capsule by mouth once daily Cholecalciferol (Vitamin D3) 25 mcg (1,000 unit) capsule Discontinued 25 ug PO daily November 28, 2023 12:00am March 19, 2024 9:53am Dermatological Products, Misc. (HPR PLUS) CREA (1 source) Start: 11-15-2016 Dermatological Products, Misc. (HPR PLUS) CREA Indications: Psoriasis Apply to affected areas bid 450 g 11 11/15/2016 Active glucosamine 500 mg oral tablet (2 sources) Start: 09-20-2024 take 1 tablet by mouth once daily Glucosamine Hcl 500 mg tablet Active 500 mg PO daily September 20, 2024 12:00am administer with a meal halcinonide 0.001 mg/mg topical ointment (1 source) Corticosteroid Start: 10-08-2018 halcinonide (H ALOG) 0.1 % OINT Indications: Psoriasis , Venous stasis Apply to itchy/scaly areas on body BID x2 weeks. Continue for up to 4 weeks if needed then stop. 2 Tube 2 10/08/2018 Active petrolatum 0.42 mg/mg topical ointment (1 source) Start: 10-08-2018 mineral oil-hydrophilic petrolatum (HYDROPHOR) ointment Indications: Psoriasis , Venous stasis Apply topically to entire body daily and as needed. 454 g 11 10/08/2018 Active predniSONE 10 mg oral tablet (1 source) take 1 tablet by mouth once daily predniSONE (DELTASONE) 10 MG tablet Take 10 mg by mouth daily Weaning dose 0 Active Tapinarof (Vtama) 1 % cream (1 source) Start: 08-23-2022 Tapinarof (Vta ma) 1 % cream Apply to affected areas qd 60 g 11 08/23/2022 Active Completed/Discontinued Medications Medication Drug Class(es) Dates Sig (Normalized) Sig (Original) ibuprofen 200 mg oral tablet (8 sources) Nonsteroidal Anti-inflammatory Drug Start: 02-22-2019 End: 11-28-2023 Ibuprofen 200 MG tablet Discontinued 200 mg PO NEEDED as needed for Headache February 22, 2019 1:00am November 28, 2023 10:41am take 1 tablet by yuan th every six hours as needed for pain ibuprofen (ADVIL;MOTRIN) 200 MG tablet T felix 200 mg by mouth every 6 hours as needed for Pain 0 Active triamcinolone acetonide 0.005 mg/mg topical ointment (9 sources) Corticosteroid Start: 02-22-2019 End: 09-20-2024 Triamcinolone Acetonide 0.5 % ointment Discontinued 1 NMA TOPICAL .COMPLEX 45 1 February 22, 2019 1:00am September 20, 2024 3:59pm 1 application topically to bilateral legs 1-2 x per day; Start: 10-10-2018 take 2 spray(s) nasa l route once daily triamcinolone (NASACORT ALLERGY 24HR) 55 MCG/ACT nasal inhaler 2 sprays by Each Nostril route daily 1 Inhaler 1 10/10/2018 Active Start: 11-15-2016 triamcinolone (KENALOG) 0.1 % ointment Indications: Psoriasis Apply to affected areas bid 80 g 6 11/15/2016 Active Problems Active Problems Problem Classification Problem Date Documented Date Episodic/Chronic Allergic reactions (20 sources) Allergic contact dermatitis; Translations: [Allergic contact dermatitis, unspecified cause] 01-15-2020 Episodic Chronic ulcer of skin (20 sources) Non-pressure chronic ulcer of unspecified part of right lower leg limited to breakdown of skin; Translations: [Non-pressure chronic ulcer of right lower leg, limited to breakdown of skin] 11-28-2023 Chronic Diabetes mellitus with complications (7 sources) Diabetes mellitus; Translations: [Type 2 diabetes mellitus with unspecified complications] 11-06-2019 Chronic Diabetes mellitus without complication (7 sources) High hemoglobin A1c level; Translations: [Other abnormal glucose] 09-12-2019 Episodic Menopausal disorders (9 sources) Postmenopausal bleeding; Translations: [Postmenopausal bleeding] Onset: 4 11-28-2023 Chronic Comment on above: EMB pending. US orde red Nutritional deficiencies (1 source) Vitamin D deficiency, unspecified; Translations: [Vitamin D deficiency, unspecified] Onset: 5 Chronic Other diseases of veins and lymphatics (7 sources) Lymphedema; Translations: [Lymphedema, not elsewhere classified] 01-15-2020 Chronic Other endocrine disorders (15 sources) Primary hyperparathyroidism; Translations: [Primary hyperparathyroidism] 05-01-2024 Chronic Comment on above: Patient is a 58-year -old female who was initially diagnosed with vitamin D deficiency and hypercalcemia but vitamin D has been supplemented and patient has become persistently hypercalcemic with elevated parathyroid hormone. This is consistent with diagnosis of primary hyperparathyroidism. Further, patient does present with surgical indications given recent DEXA imaging that shows bone demineralization with presence of osteopenia and her calcium now nearly 12 mg/dL. Additionally, patient is motivated to undergo surgery because she has been told she is unable to proceed with a needed hysterectomy on the account of her high calcium. I held a lengthy conversation with patient and her to confirm their understanding of what hyperparathyroidism represents as a diagnostic entity and why surgery is undertaken (goal in this case to minimize any further bone demineralization and improve patient's fracture risk as well as her calcium). Hand drawings were made to illustrate the relevant points. All questions were answered from patient and her and they expressed understanding of the information conveyed. Lastly, I performed a bedside ultrasound of patient's neck and was able to identify a candidate parathyroid lesion in the left inferior position. This is concordant with patient's prior sestamibi imaging and a good indicator that patient may just have a single adenoma as the cause for her primary hyperparathyroidism. I offered a improve potential follow-up visit, however, given patient's motivations to improve the bone demineralization and also move forward with her hysterectomy she is interested in scheduling surgery today. The procedure for parathyroidectomy including use of intraoperative PTH monitoring was described in detail. Other endocrine disorders (11 sources) Hyperparathyroidism; Translations: [Hyperparathyroidism, unspecified] 03-19-2024 Chronic Other endocrine disorders (1 source) Primary hyperparathyroidism; Translations: [Primary hyperparathyroidism] Onset: 5 Chronic Other endocrine disorders (1 source) Hyperparathyroidism, unspecified; Translations: [Hyperparathyroidism, unspecified] Onset: 5 Chronic Other eye disorders (11 sources) Thyroid eye disease; Translations: [Other specified disorders of eye and adnexa] 03-19-2024 Episodic Other female genital disorders (8 sources) Simple endometrial glandular hyperplasia without atypia; Translations: [Benign endometrial hyperplasia] 12-29-2023 Chronic Other female genital disorders (1 source) Benign endometrial hyperplasia; Translations: [Benign endometrial hyperplasia] Onset: 5 Chronic Other female genital disorders (1 source) Endometrial hyperplasia, unspecified; Translations: [Endometrial hyperplasia, unspecified] Onset: 5 Chronic Other female genital disorders (8 sources) Enlarged uterus; Translations: [Hypertrophy of uterus] 11-28-2023 Episodic Other inflammatory condition of skin (2 sources) Psoriasis, unspecified; Translations: [Psoriasis, unspecified] Onset: 8 Chronic Other inflammatory condition of skin (9 sources) Psoriasis; Translations: [Psoriasis, unspecified] Onset: 8 04-07-2017 Chronic Other lower respiratory disease (1 source) Cough; Translations: [Cough] Episodic Other nutritional; endocrine; and metabolic disorders (2 sources) Morbid (severe) obesity due to excess calories; Translations: [Morbid (severe) obesity due to excess calories] Onset: 8 Chronic Other nutritional; endocrine; and metabolic disorders (2 sources) Morbid obesity; Translations: [Morbid (severe) obesity due to excess calories] Onset: 7 02-01-2017 Chronic Other nutritional; endocrine; and metabolic disorders (8 sources) Obesity; Translations: [Obesity, unspecified] 11-28-2023 Chronic Comment on above: Since 05/2022 lost 11 4# WW Other screening for suspected conditions (not mental disorders or infectious disease) (20 sources) Patient encounter status; Translations: [Encounter for screening for osteoporosis] Onset: 4 03-19-2024 Episodic Residual codes; unclassified (7 sources) Bilateral lower limb edema; Translations: [Localized edema] 02-14-2019 Episodic Residual codes; unclassified (7 sources) Localized edema; Translations: [Localized edema] 10-09-2019 Episodic Residual codes; unclassified (11 sources) History of parathyroidectomy; Translations: [Other specified postprocedural states] 06-11-2024 Episodic Comment on above: Patient 58-year-old female status post invasive parathyroidectomy with intraoperative finding of a left inferior parathyroid adenoma that was over 800 mg and saw her PTH dropped from 790 to 22 intraoperatively. Today represents patient's first postoperative visit and her immediate postoperative concerns with rash and mild hoarseness are now resolved. Further she denies any wound concerns or evidence of paresthesias. Lastly, we are pleased to recognize that she has had improvements over some preoperatively declared symptoms that were potentially connected to her hyperparathyroidism. Taken together this suggests a successful outcome. Following this clinic visit I have asked her to obtain updated calcium and PTH labs to confirm no further action is required. Lastly, I discussed that the significance of her EKG reading from her preoperative evaluation remains undetermined but that I recommended follow-up with her primary care and then potentially cardiology as deemed necessary. I suggested that a big positive list she is not declaring any symptoms that would be necessarily cardiac related. I also suggested that it would be imperative to know if this sort of hedging was present on any prior EKG readings. Patient and her confirm understanding of this and confirm they will follow-up with [facility] physicians. Skin and subcutaneous tissue infections (13 sources) Cellulitis, unspecified; Translations: [Cellulitis of left lower limb] Onset: 8 04-07-2017 Episodic Comment on above: work up in process. differential diagnosis is dermatitis Superficial injury; contusion (7 sources) Multiple superficial injuries of lower leg; Translations: [Abrasion, left lower leg, initial encounter] 03-15-2019 Episodic Unclassified (2 sources) Body mass index (BMI) 50-59.9 , adult; Translations: [Body mass index (BMI) 50-59.9 , adult] Onset: 8 Chronic Past or Other Problems Problem Classification Problem Date Documented Date Episodic/Chronic Other aftercare (2 sources) nursing home (current) use of opiate analgesic; Translations: [nursing home (current) use of opiate analgesic] Onset: 04-07-2017 Episodic Other connective tissue disease (2 sources) Pain in left leg; Translations: [Pain in left leg] Onset: 04-06-2017 Episodic Residual codes; unclassified (1 source) Other specified postprocedural states; Translations: [Other specified postprocedural states] Onset: 06-13-2024 Episodic Residual codes; unclassified (1 source) Acquired absence of other organs; Translations: [Acquired absence of other organs] Onset: 06-11-2024 Episodic Results Test Name Value Interpretation Reference Range Facility Fishing [employer] Deck[employer] Office Visit Reporton 09-20-2024 [facility] [facility] [employer] Office Visit Report [facility] [address], [address] [place] [address] OFFICE VISIT Date of Service: 09/20/24 MR#: [id number] Acct: [id number] Name: SILKE LOPEZ Rep #: [id number] : 1965 Provider: Dr. So Harrington DO Age/Sex: 58/F [place] [facility] [place] Status: Signed Intake Vital Signs 06/04/24 06:38 09/20/24 15:52 09/20/24 15:54 Height 5 ft 3 in 5 ft 3 in 5 ft 3 in Weight: 225 lb BMI 39.8 BP 101/58 L Intake Visit Reasons: discuss hysterectomy Sweet Pickle Maker Required: No Is patient in pain?: No Allergies aspirin (ASA) Allergy (Intermediate, Verified 09/20/24 15:52) Swelling Iodinated Contrast Media (contrast dye - iodinated) Allergy (Mild, Verified 09/20/24 15:52) Hives levofloxacin (From Levaquin) Allergy (Verified 09/20/24 15:52) Other naproxen Allergy (Verified 09/20/24 15:52) Other Penicillins Allergy (Verified 09/20/24 15:52) Other Medications ???Medication ???Instructions ???Recorded ???Confirmed ???Type cholecalciferol (vitamin D3) 1,250 1,250 mcg PO QWEEK 09/20/24/07/21 History mcg (50,000 unit) capsule glucosamine HCl 500 mg tablet 500 mg PO QDAY 09/20/24 09/20/24 H istory Post menopausal: No Patient : No : No PFSH Medical History Wears glasses Arthritis Scoliosis Non-smoker History of edema Thyroid eye disease Primary hyperparathyroidism Hyperparathyroidism Screening for osteoporosis Surgical History S/P parathyroidectomy S/P D C (status post dilation and curettage) S/P appendectomy Family History Father Cancer Prostate Sister Cancer cholangiocarcinoma- Bile duct Grandfather Cancer Prostate Social History household members: spouse current occupational status: employed current occupation: [employer] Smoking Status: Never smoker alcohol intake: never substance use type: does not use seatbelt use: always do you feel safe at home: Yes additional social history: - [employer]- Retired HPI discuss hysterectomy Details: SILKE LOPEZ is a 58 year old who presents for discussion about simple endometrial hyperpasia without atypia. She went through her parathyroidectomy and is now ready for a hysterectomy. It has been 8 months since we last biopsied her and a repeat biopsy will be needed. She consents to this today. She has lost 40 more pounds since I last saw her, totaling 160 pounds. She also has the complaint of stool being stuck often. She has a known rectocele. Ultrasound shows a 13 cm uterus. History 4 Elective abortions Hx Para 3 Spontaneous abortions Hx # Term Pregnancies Ectopic pregnancies Hx # Pregnancies Multiple births # of living children 3 Past Pregnancies Del. Date Name GA/Weeks Outcome Route Bth Weight Infant Gen Labor Lgth Anesthesia Del Locatn Provider FOB Unknown [place] Unknown Ngozi Unknown [place] ROS Const ROS Unobtainable: All systems reviewed are unremarkable except as noted in H Resp Resp: Reports system reviewed and no additional complaints, except as documented; Denies cough GI GI: Reports as per HPI Psych Psych: Reports system reviewed and no additional complaints, except as documented Exam Const General: cooperative, healthy appearing, comfortable and no acute distress Resp Effort Inspection: normal respiratory effort General: bimanual renal exam normal bilaterally External Female Exam: normal appearance of the urethra Urethra: normal appearance of the urethra Speculum Exam - Vagina: normal appearance of the vagina Speculum Exam - Cervix: normal appearance of the cervix Bimanual Exam- Adnexa, other: normal adnexae and rectocele (moderate rectocele noted . (grade 3) ) Pelvic Support: rectocele (moderate rectocele noted . (grade 3) ) Skin General: no rashes or lesions noted Psych Appearance: grossly normal Speech and Movement: speech and movement normal Office Procedures Endometrial Biopsy Endometrial Biopsy Test: Yes declined Consent Signed: Yes Time out checklist: patient tenaculum used: Yes dilator used: Yes Details: Cervix prepped with betadine and pipelle inserted into uterus without complication. Specimen obtained and sent to lab for analysis. All instruments removed from vagina without complications. Excellent hemostasis noted. Coding Level of Care Code Off vis,est,level 4 Diagnoses S/P parathyroidectomy Z98.890; Z90.89 Endometrial hyperplasia without atypia, simple N85.01 Enlarged uterus N85.2 Obesity E66.9 CPT C (more content not included)... Normal [facility] Surgery Specimen Level Nilda 09-20-2024 Surgery Specimen Level IV -------- Patient Age/Sex Location Account Attending Physician -------- SILKE LOPEZ 58/F [facility] [id number] Dr. So Jamison, Yue -------- Specimen: [id number] Received: 09/20/24 Status: SOHAM Ann Num: [id number] Spec Type: ENDOM BX/C Subm Dr: Dr. So Jamison, DO HEADER OPERATION: EMB PRE-OP DIAGNOSIS: Simple endometrial hyperplasia without atypia TISSUE SUBMITTED: A- Endometrial lining -------- MICROSCOPIC DIAGNOSIS A. Endometrium, simple hyperplasia without atypia, biopsy - Scant superficial epithelium - see note. Note: A very small amount of superficial epithelium is present, which may be of endometrial and/or endocervical origin. Clinical correlation is necessary to assess the adequacy of this sampling. MICROSCOPIC DESCRIPTION Slides are reviewed. GROSS DESCRIPTION A. Received in formalin labeled with the patient's name and date of are flecks of translucent mucoid material and possible tissue which is entirely submitted in 1 cassette, for cellblock preparation. Entirety of the specimen may not survive processing. [place] 09/23/2024 CPT:77391 -------- Patient Age/Sex Location Account Attending Physician -------- SILKE LOPEZ 58/F [facility] [id number] [place] -------- Signed (signature on file) Dr. Debbie Taylor MD 09/26/24 1730 -------- Normal [facility] Comment on above: Performed By: #### L 501.2200, L509.1000, L506.1000, [id number] #### [facility] [place], [place], [id number] Vitamin D,25 Hydroxyon 09-03 Vitamin D 25-OH 30.0 ng/mL Normal 30-100 [facility] Comment on above: Result Comment: Magdalena min D Status Deficiency: <20 ng/mL (50nmol/L) Insufficiency: 20-30 ng/mL (50-75 nmol/L) Sufficiency: 30-100 ng/mL (75-250 nmol/L) Toxicity: >100 ng/mL (>250 nmol/L) Performed By: #### L 501.2200, L509.1000, L506.1000, L3300.6900 #### [facility] [address] [place], [address] Echo Completeon 07-15-2024 Echo Complete [facility] [address] [place] [address] Echo Complete 07/15/24 1316 MR#: [id number] Acct: [id number] Name: SILKE LOPEZ Rep #: [id number] : 1965 58 From: Maikol Sanchez MD Attending Dr: Leigha Wynn NP-C Status: REG C Ordering Dr: Leigha Wynn [employer] Date: 07/15/24 Location: [facility] Sex: F C Admitted: Reason For Study Reason For Study: Abn EKG Procedure This was a 2D Doppler, Color Flow transthoracic echocardiogram. Exam performed in department. Left Ventricle Normal LV size. The left ventricular ejection fraction is 60 %. Normal diastology for age. No regional wall motion abnormalities noted. Right Ventricle Normal RV size. Normal systolic function. Atria The left atrium is mildly enlarged. Normal right atrium. Mitral Valve Normal mitral valve. Tricuspid Valve Normal tricuspid valve. Mild (1+) tricuspid valve insufficiency. Pulmonary artery systolic pressure is 28 mmHg. Pulmonic Valve Normal pulmonic valve. Great Vessels Normal aortic root. The pulmonary artery is normal size. Normal inferior vena cava. Pericardium/Pleural No pericardial effusion. MMode/2D Measurements Calculations LVIDd: 4.9 cm IVSd: 0.84 cm Ao root diam: 3.0 cm LVIDs: 3.0 cm LVPWd: 0.87 cm RVDd: 3.7 cm FS: 39.6 % LAV(MOD-bp): 65.6 ml LVAd ap4: 30.6 cm2 LVAd ap2: 26.3 cm2 LAV(MOD-bp) Indexed: 31.6 ml/m2 LVLd ap4: 8.2 cm LVLd ap2: 7.6 cm LAV(MOD-sp2): 54.7 ml EDV(MOD-sp4): 98.9 ml EDV(MOD-sp2): 78.6 ml LAV(MOD-sp4): 67.0 ml EDV(sp4-el): 97.1 ml EDV(sp2-el): 77.2 ml LVAs ap4: 16.9 cm2 LVAs ap2: 15.6 cm2 LVLs ap4: 6.8 cm LVLs ap2: 6.5 cm ESV(MOD-sp4): 36.0 ml ESV(MOD-sp2): 32.4 ml ESV(sp4-el): 35.2 ml ESV(sp2-el): 31.6 ml EF(MOD-sp4): 63.6 % EF(MOD-sp2): 58.8 % EF(sp4-el): 63.7 % SV(MOD-sp4): 62.9 ml SV(MOD-sp2): 46.2 ml SV(sp4-el): 61.8 ml SI(MOD-sp4): 30.3 ml/m2 SI(MOD-sp2): 22.3 ml/m2 LA A4 area: 22.9 cm2 LA dimension(2D): 3.7 cm RA A4 area: 17.6 cm2 TAPSE: 2.7 cm Time Measurements MV dec time: 0.22 sec Doppler Measurements Calculations MV E max yaquelin: 106.7 cm/sec Lat Peak E' Yaquelin: 15.3 cm/sec Med Peak E' Yaquelin: 10.1 cm/sec MV A max yaquelin: 74.8 cm/sec E/E' lat: 7.0 E/E' med: 10.6 MV E/A: 1.4 Ao V2 max: 144.9 cm/sec LV V1 max: 129.9 cm/sec MV dec slope: 484.4 cm/sec2 Ao max P.4 mmHg LV V1 max P.8 mmHg Ao V2 mean: 101.0 cm/sec LV V1 mean P.5 mmHg Ao mean P.7 mmHg LV V1 mean: 86.2 cm/sec Ao V2 VTI: 41.2 cm LV V1 VTI: 34.5 cm AV (velocity ratio): 0.84 PA V2 max: 100.3 cm/sec TR max yaquelin: 244.8 cm/sec TR max P.0 mmHg ECHO/Echo Complete Interpretation Summary Normal LV size. The left ventricular ejection fraction is 60 %. Pulmonary artery systolic pressure is 28 mmHg. Structurally normal valves. Ordering Physician: Leigha Wynn Referring Physician: Leigha Wynn Performed By: Kayce Barcenas RDCS 07/15/24 1629 Date Maikol Sanchez MD CC: EDGAR Wynn Date Dictated: 07/15/246 Date Transcribed: 07/15/241628 Insurance Job Titles: Signed Normal [facility] Echocardiogram study reportO rdered By: Maikol Sanchez on 07-15-2024 Study report [facility] [address] [place] [address] Echo Complete 07/15/24 1316 MR#: [id number] Acct: [id number] Name: SILKE LOPEZ Rep #:[id number] : 1965 58 From: Maikol Turner Attending Dr: EDGAR Long S tatus: REG CLI Ordering Dr: Leigha Wynn NP Onur e: 07/15/24 Location: [facility] Sex: F C Admitted: Reason For Study Reason For Study: Abn EKG Procedure This was a 2D Doppler, Color Flow transthoracic echocardiogram. Exam performed in department. Left Ventricle Normal LV size. The left ventricular ejection fraction is 60 %. Normal diastology for age. No regional wall motion abnormalities noted. Right Ventricle Normal RV size. Normal systolic function. Atria The left atrium is mildly enlarged. Normal right atrium. Mitral Valve Normal mitral valve. Tricuspid Valve Normal tricuspid valve. Mild (1+) tricuspid valve insufficiency. Pulmonary artery systolic pressure is 28 mmHg. Pulmonic Valve Normal pulmonic valve. Great Vessels Normal aortic root. The pulmonary artery is normal size. Normal inferior vena cava. Pericardium/Pleural No pericardial effusion. MMode/2D Measurements & Calculations LVIDd: 4.9 cm IVSd: 0.84 cm Ao root diam: 3.0 cm LVIDs: 3.0 cm LVPWd: 0.87 cm RVDd: 3.7 cm FS: 39.6 % LAV(MOD-bp): 65.6 ml LVAd ap4: 30.6 cm2 LVAd ap2: 26.3 cm2 LAV(MOD-bp) Indexed: 31.6 ml/m2 LVLd ap4: 8.2 cm LVLd ap2: 7.6 cm LAV(MOD-sp2): 54.7 ml EDV(MOD-sp4): 98.9 ml EDV(MOD-sp2): 78.6 ml LAV(MOD-sp4): 67.0 ml EDV(sp4-el): 97.1 ml EDV(sp2-el): 77.2 ml LVAs ap4: 16.9 cm2 LVAs ap2: 15.6 cm2 LVLs ap4: 6.8 cm LVLs ap2: 6.5 cm ESV(MOD-sp4): 36.0 ml ESV(MOD-sp2): 32.4 ml ESV(sp4-el): 35.2 ml ESV(sp2-el): 31.6 ml EF(MOD-sp4): 63.6 % EF(MOD-sp2): 58.8 % EF(sp4-el): 63.7 % SV(MOD-sp4): 62.9 ml SV(MOD-sp2): 46.2 ml SV(sp4-el): 61.8 ml SI(MOD-sp4): 30.3 ml/m2 SI(MOD-sp2): 22.3 ml/m2 LA A4 area: 22.9 cm2 LA dimension(2D): 3.7 cm RA A4 area: 17.6 cm2 TAPSE: 2.7 cm Time Measurements MV dec time: 0.22 sec Doppler Measurements & Calculations MV E max yaquelin: 106.7 cm/sec Lat Peak E' Yaquelin: 15.3 cm/sec Med Peak E' Yaquelin: 10.1 cm/sec MV A max yaquelin: 74.8 cm/sec E/E' lat: 7.0 E/E' med: 10.6 MV E/A: 1.4 Ao V2 max: 144.9 cm/sec LV V1 max: 129.9 cm/sec MV dec slope: 484.4 cm/sec2 Ao max P.4 mmHg LV V1 max P.8 mmHg Ao V2 mean: 101.0 cm/sec LV V1 mean P.5 mmHg Ao mean P.7 mmHg LV V1 mean: 86.2 cm/sec Ao V2 VTI: 41.2 cm LV V1 VTI: 34.5 cm AV (velocity ratio): 0.84 PA V2 max: 100.3 cm/sec TR max yaquelin: 244.8 cm/sec TR max P.0 mmHg ECHO/Echo Complete Interpretation Summary Normal LV size. The left ventricular ejection fraction is 60 %. Pulmonary artery systolic pressure is 28 mmHg. Structurally normal valves. Ordering Physician: Leigha Wynn Referring Physician: Leigha Wynn Performed By: Narinder, Kayce, RDCS 07/15/24 1629 Date _ Maikol Sanchez MD CC: EDGAR Beltránkobi Wynn ~ Date Dictated: 07/15/24 1316 Date Transcribed: 07/15/241628 Insurance Job Titles: Signed [facility] Work Phone: [phone] 06-11-2024 Calcium [Mass/Vol] 9.1 mg/dL Normal 7.6-11.0 [facility] Comment on above: Performed By: #### L 509.1000, L501.0895 #### [facility] [address] [place], [address] PTH intactOrdered By: Coleen Adams on 06-11-2024 Parathyroid Hormone (Intact) 56 pg/mL [facility] PTHINon 06-11-2024 PTH 56 pg/mL Normal [facility] Comment on above: Performed By: #### L 509.1000, L501.0895 #### [facility] [address] [place], [address] Serum or plasma calcium leta urement (mass/volume)Ordered By: Errol Adams on 06-11-2024 Calcium [Mass/Vol] 9.1 mg/dL 7.6-11.0 [facility] Surgery Visit Reporton 06-11 Surgery Visit Report [facility] [address] [place] [address] OFFICE VISIT Date of Service: 06/11/24 MR#: [id number] Acct: [id number] Name: SILKE LOPEZ Rep #: [id number] : 1965 Provider: Dr. Errol santiago MD Age/Sex: 58/F Location: [facility] Status: Signed Intake Vital Signs 06/04/24 06:38 Height 5 ft 3 in Intake Visit Reasons: PARATHYROIDECTOMY 4- Chief Complaint: parathyroidectomy 06/04 Is patient in pain?: No Allergies aspirin (ASA) Allergy (Intermediate, Verified 06/11/24 08:51) Swelling Iodinated Contrast Media (contrast dye - iodinated) Allergy (Mild, Verified 06/11/24 08:51) Hives levofloxacin (From Levaquin) Allergy (Verified 06/11/24 08:51) Other naproxen Allergy (Verified 06/11/24 08:51) Other Penicillins Allergy (Verified 06/11/24 08:51) Other Medications ???Medication ???Instructions ???Recorded ???Confirmed ???Type triamcinolone acetonide 0.5 % 1 applic topical .COMPLEX #45 gram s 02/22/19 06/11/24 Rx topical ointment cholecalciferol (vitamin D3) 50 50 mcg PO DAILY 05/21/24 06/11/24 History mcg (2,000 unit) capsule (Vitamin D3) Subjective Details: Patient presents following minimally invasive parathyroidectomy on 06/04/2024. Since hospital discharge they have been doing well. She had initially reported some rash and today they reported some initial hoarseness but both of these are resolved. They report no postoperative pain. They also have not experienced symptoms of numbness and tingling. They deny wound concerns. She has not required any calcium supplementation postoperatively. On review of her initial consult note Mrs. Lopez had complained of constipation, fatigue, and memory difficulties. She states that all 3 of these are improved from her preoperative status. Her biggest concern today is related to a preoperative EKG that indicated possible age-indeterminate infarct and what to do about this information. Objective Details: Constitutional: No acute distress, cooperative/appreciat farzana Neck: Mild yellowing ecchymotic changes of the soft tissues of the neck about the incision site which is well-approximated without erythema or drainage. There is mild persistent induration both superiorly and inferiorly. There is no fluctuance. There is no tenderness on palpation. Coding Level of Care Code Global Post Op Diagnoses S/P parathyroidectomy Z98.890; Z90.89 [facility] Medical History Wears glasses Arthritis Scoliosis Non-smoker History of edema Thyroid eye disease Primary hyperparathyroidism Hyperparathyroidism Screening for osteoporosis Surgical History (Updated 06/11/24 @ 15:[address] Errol Adams MD) S/P parathyroidectomy S/P D C (status post dilation and curettage) S/P appendectomy Family History Father Cancer Prostate Sister Cancer cholangiocarcinoma- Bile duct Grandfather Cancer Prostate Social History household members: spouse current occupational status: employed current occupation: [employer] Smoking Status: Never smoker alcohol intake: never substance use type: does not use seatbelt use: always do you feel safe at home: Yes additional social history: - [employer]- Retired Assessment and Plan (No Qualifiers) Assessment and Plan (1) S/P parathyroidectomy: Status: Acute Comment: Patient 58-year-old female status post invasive parathyroidectomy with intraoperative finding of a left inferior parathyroid adenoma that was over 800 mg and saw her PTH dropped from 790 to 22 intraoperatively. Today represents patient's first postoperative visit and her immediate postoperative concerns with rash and mild hoarseness are now resolved. Further she denies any wound concerns or evidence of paresthesias. Lastly, we are pleased to recognize that she has had improvements over some preoperatively declared symptoms that were potentially connected to her hyperparathyroidism. Taken together this suggests a successful outcome. Following this clinic visit I have asked her to obtain updated calcium and PTH labs to confirm no further action is required. Lastly, I discussed that the significance of her EKG reading from her preoperative evaluation remains undetermined but that I recommended follow-up with her primary care and then potentially cardiology as deemed necessary. I suggested that a big positive list she is not declaring any symptoms that would be necessarily cardiac???related. I also suggested that it would be imperative to know if this sort of hedging was present on any prior EKG readings. Patient and her confirm understa (more content not included)... Normal [facility] Vitamin D, 25-hydroxyOrdered By: Errol Adams on 06-11-2024 Vitamin D 25-Hydroxy 21.3 ng/mL Low 30-100 [facility] Comment on above: Vitamin D StatusDefi ciency: <20 ng/mL (50nmol/L)Insufficiency: 20-30 ng/mL (50-75 nmol/L)Sufficiency: 30-100 ng/mL (75-250 nmol/L)Toxicity: >100 ng/mL (>250 nmol/L) Vitamin D,25 Hydroxyon 06-11 Vitamin D 25-OH 21.3 ng/mL Low 30-100 [facility] Comment on above: Result Comment: Magdalena min D Status Deficiency: <20 ng/mL (50nmol/L) Insufficiency: 20-30 ng/mL (50-75 nmol/L) Sufficiency: 30-100 ng/mL (75-250 nmol/L) Toxicity: >100 ng/mL (>250 nmol/L) Performed By: #### L 506.1001 #### [facility] [address] [place], [address] Discharge Instructionon Discharge Instruction [facility] Medical Records Department [address] [place] [address] Instructions for Home/Discharge Instructions 06/04/24 1014 MR#: [id number] Acct: [id number] Name: SILKE LOPEZ Rep #: [id number] : 1965 58 From: Errol Adams MD PCP: EDGAR Long Status:DEP [facility] Discharge Instructions Diet Discharge Diet: No restrictions (However recommend a liquid to soft diet initially postoperatively) Activity Discharge Activity: May Not Drive (While it remains difficult to check blind spots quickly) May shower in (days): 2 Ice area for (Minutes): 20 Lifting Restrictions: No lifting greater than 15 pounds for 2 weeks after surgery Dressing / Incision Call your doctor if your incision/area has: Continuous Slow Oozing, Sudden Increased Bleeding, Increased Pain/ Swelling, Increased Redness and Swelling at the incision site Call your doctor if you observe: Numbness or Tingling Remove Dressing in: 2 days (Please leave Steri-Strips intact until they fall off spontaneously or are taken off at your follow-up visit) Cleanse incision/area with: Soap Water Follow Up Care Please Follow Up With: Errol Adams MD When: 7 days postop Test Results: Test results from this visit will be discussed in further detail at your follow-up appointment, if applicable. Discharge Plan Admission Primary Reason for Your Visit: Parathyroid surgery Attending Provider: Errol Adams Primary Care Provider: Leigha Wynn NP Instructions Additional Instructions / Restrictions: Please take a regular strength tums if feeling numbness or tingling of fingertips or about lips and notify Dr. Adams's office immediately. Print Language: Djiboutian Discharge Orders/Prescriptions Prescriptions: Continued cholecalciferol (vitamin D3) [Vitamin D3] 50 mcg (2,000 unit) capsule 50 mcg PO DAILY triamcinolone acetonide 0.5 % ointment 1 applic TOPICAL .COMPLEX Qty: 45 1RF Rx Instructions: 1 application topically to bilateral legs 1-2 x per day; Referrals / Follow Up: Leigha Wynn NP, [employer] [Primary Care Provider] - Disposition Disposition (needs filled in before D/C Order can be placed): Home, Self Care 06/04/24 5497 Errol Adams MD CC: [employer] Leigha Wynn Signed Normal [facility] Frozen Section (charge)on Frozen Section (charge) ----- -------- Patient Age/Sex Location Account Attending Physician -------- SILKE LOPEZ 58/F [facility] [id number] Dr. Errol Adams MD -------- Specimen: [id number] Received: 06/04/24 Status: SOHAM Ann Num: [id number] Spec Type: PARATHY Subm Dr: Dr. Errol Adams MD HEADER OPERATION: Parathyroidectomy with IONM, PTH, frozen section PRE-OP DIAGNOSIS: Primary hyperparathyroidism TISSUE SUBMITTED: A- Left inferior parathyroid -------- FROZEN SECTION DIAGNOSIS A. Left inferior parathyroid, parathyroidectomy: Parathyroid tissue (0.861gm). mr 06/04/2024 MICROSCOPIC DIAGNOSIS A. Left inferior parathyroid, hyperparathyroidism , parathyroidectomy: * Parathyroid gland hyperplasia (0.861 gram). MICROSCOPIC DESCRIPTION Slides are reviewed. GROSS DESCRIPTION A. Received fresh for intraoperative consultation in a container labeled with the patient's name, date of , and left inferior parathyroid/FS and weight is a 0.861 g and 1.4 x 1.1 x 0.9 cm red and encapsulated portion of soft tissue. It is trisected to reveal orange-brown, uniform surfaces. A portion is submitted for frozen section analysis. The remaining remnants are submitted entirely as follows:A1. Frozen section remnantA2. Remainder of specimen [facility] 06-04-2024 CPT:18595,06923 -------- Patient Age/Sex Location Account Attending Physician -------- SILKE LOPEZ 58/F [facility] [place] [id number] Dr. Errol Adams MD -------- Signed (signature on file) Dr. Debbie Taylor MD 06/20/24 1654 -------- Normal [facility] Comment on above: Performed By: #### L 501.2200, L509.1000, L506.1000, L3300.6900 #### [facility] [address] [facility] [place], [place], [id number] MR/POSTOP.[place] 06-04-2024 MR/POSTOP.[facility] Medical Records Department [address] [facility] [place] [address] Anesthesia Postop Eval I 06/04/24 1134 MR#: [id number] Acct: [id number] Name: SILKE LOPEZ Rep #: [id number] : 1965 58 From: Victorino Elias ROTARY SWAGING MACHINE OPERATOR PCP: EDGAR Long Status:REG [facility] Y Race: C Location: [place] [address] Anesthesia: Postop Eval I Current Vital Signs Temperature: 96.8 F Pulse Rate: 78 Blood Pressure: 126/74 Respiratory Rate: 14 Pulse Ox: 98 Oxygen Delivery Method: Room Air Assessment Airway patent: Yes Spontaneous unlabored respirations: Yes Mental status: Awake and Calm nausea: No Vomiting: No Anesthesia Complication: No Fluid Hydration Crystalloid volume administer (ml): 1,500 Total IV fluid infused: 1,500 Progress Note Anesthesia document: Postop Eval 1 completed: Yes 06/04/24 1135 Date Victorino Elias R[employer] SWAGING MACHINE OPERATOR Cosigner Signature: Date CC: Signed Normal [facility] MR/[id number] 06-04-2024 /[facility] Medical Records Department [address] [place] [address] Anesthesia Postop Eval II 06/04/241915 MR#: [id number] Acct: [id number] Name: SILKE LOPEZ Rep #: [id number] : 1965 58 From: Amado Alvarez MD PCP: EDGAR Long Status:[facility] Y Race: C [place] [facility] [place] Anesthesia Postop Eval I Sum Postop Eval Completion status Anesthesia document: Postop Eval 1 completed: Yes Anesthesia Postop Eval I Summary Anesthesia Postop Eval I Summary: Anesthesia Postop Eval I: Assessment Summary Airway patent Yes 06/04/24 11:35 ROTARY SWAGING MACHINE OPERATOR.[email or web address] Spontaneous unlabored Yes 06/04/24 11:35 ROTARY SWAGING MACHINE OPERATOR.JBLOU respirations Mental status Awake,Calm 06/04/24 11:35 ROTARY SWAGING MACHINE OPERATOR.JBLOU nausea No 06/04/24 11:35 ROTARY SWAGING MACHINE OPERATOR.JBLOU Vomiting No 06/04/24 11:35 ROTARY SWAGING MACHINE OPERATOR.JBLOU Anesthesia Postop Eval I: Fluid Summary Crystalloid volume administer 1,500 06/04/24 11:35 ROTARY SWAGING MACHINE OPERATOR.JBLOU (ml) Colloids volume administered ( ml) Blood Product volume administered (ml) Total IV fluid infused 1,500 06/04/24 11:35 ROTARY SWAGING MACHINE OPERATOR.JBLOU Anesthesia Postop Eval I: Summary Notes Anesthesia Complication No 06/04/24 11:35 ROTARY SWAGING MACHINE OPERATOR.JBLOU Anesthesia Complication Comment: Post-operative progress note Anesthesia: Postop Eval II Evaluation Mental status: Awake and Calm Pain Level: 1 nausea: No Vomiting: No Complications Anesthesia Complication: No 06/04/24 1916 Date Amado Reganignjelani Signature: Date CC: Signed Normal [facility] Operative Reporton 5 Operative Report [facility] Medical Records Department [address] [place] [address] Operative Report 06/04/24 1012 MR#: [id number] Acct: [id number] Name: SILKE LOPEZ Rep #: [id number] : 1965 58 From: Errol Adams MD PCP: EDGAR Long Status:[facility] Location[place] [facility] Operative Report (Standard) Operative Information Date of Procedure: 06/04/24 Pre-Operative Diagnosis: 1. Primary Hyperparathyroidism 2. Vitamin D deficiency Post-Operative Diagnosis: 1. Primary Hyperparathyroidism secondary to left inferior parathyroid adenoma 2. Vitamin D deficiency Surgery/Procedure Performed: Minimally invasive parathyroidectomy with intraoperative PTH and nerve monitoring documentation coordinator: Yes Underwriting Director: Dai Carrero Tasks completed by first mate: Opening closing Type of Anesthesia: General/Supplemental RN Documented Start/Stop Times: Operation Date: 06/04/24 07:30 Case Time Into Pre-Op 06/04/24 06:16 Out of Pre-Op 06/04/24 07:25 Anesthesia Start 06/04/24 07:28 Into Room 06/04/24 07:28 Procedure Start 06/04/24 08:22 Procedure End 06/04/24 10:13 Anesthesia End 06/04/24 10:25 Into Recovery 06/04/24 10:25 Out of Room 06/04/24 10:25 Out of Recovery 06/04/24 11:15 Into Phase II Recovery 06/04/24 11:16 Out of Phase II 06/04/24 14:01 Procedure Start Time: Procedure Stop Time: 10:13 Select all DRAINS/GRAFTS/IMPLANT S that apply: None Estimated Blood Loss: 25 Specimen collected: Yes Description of specimen(s) removed: Left Inferior parathyroid gland Description of surgery: After appropriate identification in the preoperative holding area the patient was brought to the operating room where she was positioned supine on the operating room table. There she was induced with general endotracheal anesthetic. Of note, a preoperative PTH had been obtained and was reported as 144. Patient was then intubated using a Nims tube and glidescope to ensure coaptation between the vocal cords and the Nims tube electrodes. A resistance check confirmed appropriate function of the tube after the electrodes were properly connected to the monitoring box. Patient was then positioned in cervical extension, but adequately supporting the occiput. Ultrasound was used to examine the neck and re-localize the patient's suspicious parathyroid gland in the left neck to assist with incision planning. She was prepped and draped in the usual sterile fashion and a formal timeout followed to confirm patient and the procedure to be performed. A local block was produced with infiltration of local anesthetic and a 3.5cm transverse incision was made. This was deepened with the use of electrocautery through the platysma and subplatysmal flaps were raised superiorly and inferiorly. Ultimately the strap muscles were exposed and were divided along their raphe with electrocautery. I then used blunt dissection to free the sternothyroid muscle from the thyroid capsule of the left thyroid lobe deeply. The strap muscles were from one another as I proceeded with dissection laterally towards the patient's left internal jugular vein. Once this structure was sufficiently exposed I obtained a baseline central vein PTH level. This ultimately returned at 790. For the interim I returned to the patient's neck and elevated the inferior pole of the left thyroid lobe. Shortly after this mobilization it became apparent that patient had a large parathyroid gland located just deeply and inferiorly to this pole. Careful blunt dissection was employed to free the structure from its surrounding soft tissue attachments. Several overlying veins to the inferior thyroid pole were individually ligated to improve exposure. Then the target lesion was circumferentially freed so that it remained suspended by its vascular pole only. At this point a medium titanium clip was placed across the vascular pole and the gland was sharply amputated free. This specimen was passed off the field for frozen section confirmation. (Later, pathology telephoned the room to notify us that indeed this represented a large parathyroid gland weighing 861mg). As we awaited this result, I irrigated the surgical cavity with sterile water examined for hemostasis. Finding this intact, I also developed the plane between the thyroid capsule and the strap muscles to try to identify the second parathyroid gland on this side. The tracheoesophageal groove was also developed bluntly and I worked to confirm a signal on the left recurrent laryngeal nerve but I was not able to do so nor visualize the nerve. There did not seem to be justification for performing additional dissection of the nerve so I excepted this result. Left internal jugular ex vivo blood draws were made with a 22-gauge needle and syringe at 5, 10, and 15 minutes were 89, 68 and 51, respectively. While we waited for thes (more content not included)... Normal [facility] PTH intactOrdered By: Coleen Adams on 06-04-2024 Parathyroid Hormone (Intact) 22 pg/mL [address] [place] [address] PTHINon 06-04-2024 PTH 22 pg/mL Normal [address] [place] [address] Comment on above: Performed By: #### L 501.2200, L509.1000, L506.1000, L3300.6900 #### [facility] [address] [place], [address] PTH 51 pg/mL Normal [address] [place] [address] Comment on above: Order Comment: Comme nts: PTH 15 MIN Performed By: #### L 509.1000 #### [facility] [address] [place], [address] PTH 89 pg/mL High [address] [place] [address] Comment on above: Order Comment: Comme nts: PTH INTRAOPERATIVE 5 MIN Performed By: #### L 501.2200, L509.1000, L506.1000, L3300.6900 #### [facility] [address] [place], [address] PTH 68 pg/mL High [address] [place] [address] Comment on above: Order Comment: Comme nts: PTH 10 MIN Performed By: #### L 501.2200, L509.1000, L506.1000, L3300.6900 #### [facility] [address] [place], [address] PTH 790 pg/mL High [address] [place] [address] Comment on above: Order Comment: Comme nts: PTH INTRAOPERATIVE BASELINE @ 0838 Performed By: #### L 501.2200, L509.1000, L506.1000, L3300.6900 #### [facility] [address] [place], [address] PTH 144 pg/mL High [address] [place] [address] Comment on above: Performed By: #### L 509.1000 #### [facility] [address] [place], [address] 12 Lead EKGon 05-23-2024 12 Lead EKG [facility] Cardiovascular Services [address] [place] [address] 12 Lead EKG 05/23/24 1032 MR#: [id number] Acct: [id number] Name: SILKE LOPEZ Rep #: [id number] : 1965 58 From: Maikol Sanchez MD Attending Dr: Dr. Errol Adams MD Status: PRE [facility] [place] Dr: Amado Alvarez MD Date: 05/23/24 [place] [facility] [place] Sex: F C Admitted: Test Reason : PRE OP Blood Pressure : */* mmHG Vent. Rate : 68 BPM Atrial Rate : 68 BPM P-R Int : 174 ms QRS Dur : 92 ms QT Int : 382 ms P-R-T Axes : 48 -1 67 degrees QTcB Int : 406 ms Normal sinus rhythm Cannot rule out Anterior infarct , age undetermined Abnormal ECG Confirmed by MAIKOL SANCHEZ MD ([id number]), film or videotape editor RAY HAUSER ([id number]) on 05/23/2024 12:52:44 PM Referred By: Errol Adams Confirmed By: MAIKOL SANCHEZ MD 05/23/24 1252 Date Maikol Sanchez MD CC: EDGAR Wynn; Dr. Amado Alvarez MD; Dr. Errol Adams MD Signed Normal [facility] Electrocardiogram reportOrde red By: Maikol Sanchez on 05-23-2024 EKG study [facility] Cardiovascular Services [address] [place] [address] 12 Lead EKG 05/23/24 1032 MR#: [id number] Acct: [id number] Name: SILKE LOPEZ Rep #:[id number] : 1965 58 From: Maikol Sanchez MD Attending Dr: Dr. Errol Adams MD Status: PRE SDC Ordering Dr: Amado Alvarez MD Date: 05/23/24 [place] [facility] [place] Sex: F C Admitted: Test Reason : PRE OP Blood Pressure : */* mmHG Vent. Rate : 68 BPM Atrial Rate : 68 BPM P-R Int : 174 ms QRS Dur : 92 ms QT Int : 382 ms P-R-T Axes : 48 -1 67 degrees QTcB Int : 406 ms Normal sinus rhythm Cannot rule out Anterior infarct , age undetermined Abnormal ECG Confirmed by MAIKOL SANCHEZ MD ([id number]), film or videotape editor RAY HAUSER ([id number]) on 512:52:44 PM Referred By: Errol Adams Confirmed By: MAIKOL SANCHEZ MD 05/23/241251 Date _ Maikol Sanchez MD CC: EDGAR Wynn; Dr. Amado Alvarez MD; Dr. Errol Adams MD ~ Signed [facility] Work Phone: MR/PATJudi 05-23-2024 MR/PAT.KIM [facility] Medical Records Department [address] [place] [address] PAT - Anesthesia 05/23/24 1429 MR#: [id number] Acct: [id number] Name: SILKE LOPEZ Rep #: [id number] : 1965 58 From: Amado Alvarez MD PCP: EDGAR Long Status:PRE SDC Y Race: C [place] [facility] [place] Pre-Assessment Diagnosis/Proposed Procedure Planned Operative Procedure(s): Parathyroidectomy w/IONM, PTH, and frozen section Anesthesia History Anesthesia History - medical lab scientist: Anesthesia History - medical lab scientist Hx Hospitalization No 05/21/24 11:11 Any Problems With Anesthesia No 05/21/24 11:11 Cholinesterase deficiency No 05/21/24 11:11 You/Your Family Experience No 05/21/24 11:11 fever (hyperthermia) with Relationship Recent Exposure to Contagious Disease Does patient have nerve No 05/21/24 11:11 stimulator Patient instructed to have device shut off --Does patient have Pacemaker or ICD? When Was Last Pacemaker Check QUESTION #4 FULL TEXT: You/Your Family Experience fever (hyperthermia) with Anesthesia Last Oral Intake Last Oral intake: Last Oral Intake NPO since Meds taken in AM with sips of water? Meds patient instructed to take am of surgery PONV PONV - medical lab scientist: PONV - medical lab scientist Female Yes 05/21/24 11:11 HX of Motion Sickness No 05/21/24 11:11 HX of N/V After Surgery No 05/21/24 11:11 Non-Smoker Yes 05/21/24 11:11 Duration of Surgery greater No 05/21/24 11:11 than 60 minutes Number of Risk Factors 2 05/21/24 11:11 PONV Score Moderate Risk 05/21/24 11:11 Height Weight Height Weight: Anesthesia: Height Weight Height 5 ft 3 in 05/01/24 08:20 Respiratory Assessment Respiratory Assessment - medical lab scientist: Respiratory Tract Infection Hx - medical lab scientist Hx Respiratory Tract Infection No 05/21/24 11:11 STOP Sleep Apnea STOP Sleep Apnea - medical lab scientist: STOP Sleep Apnea - medical lab scientist Hx Hypertension No 05/21/24 11:11 Hx Sleep Apnea No 05/21/24 11:11 CPAP BIPAP Do you snore loudly (louder No 05/21/24 11:11 than talking or can be heard Do you often feel tired/ No 05/21/24 11:11 fatigued/ sleepy during daytime? Has anyone observed you stop No 05/21/24 11:11 breathing during sleep? STOP Results Negative 05/21/24 11:11 QUESTION #5 FULL TEXT : Do you snore loudly (louder than talking or can be heard through closed doors)? Tobacco Use History Tobacco Use History - medical lab scientist: Tobacco Use History - medical lab scientist Tobacco Use Smoking Status Never smoker 05/21/24 11:11 Hx Tobacco Use No 05/21/24 11:11 Years Smoking Packs Smoked per Day Smoking Cessation Date was within the last 15 years Hx Smoking Cessation Date Hx Smoking Cessation Counseling Hematologic Medial History Hematologic Hx - medical lab scientist: Hematologic 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 engineer Hx of Blood Transfusion No 05/21/24 11:11 Hx of Transfusion in last 3 No 05/21/24 11:11 Months Date of Last Transfusion (if within last 3 months) Ever experience any problems No 05/21/24 11:11 with transfusion(s)? Specify any problems Hx of Preganancy in last 3 No 05/21/24 11:11 Months Nurse Filling Out Transfusion VCHRISTIN 05/21/24 11:11 Questions: Date: 05/21/24 05/21/24 11:11 Time: 11:12 05/21/24 11:11 Patient unable to answer at this time (ie. confused, unrespo /Reproductio n History /Reproductiv e History - medical lab scientist: /Reproductiv e Hx- medical lab scientist Hx Now No 05/21/24 11:11 Gestational Age (in weeks): EDC: Hx Hx Para Hx Section SAB No 05/21/24 11:11 PFSH Medical History (Updated 05/21/24 @ 11:11 by Ria Lamb) Wears glasses Arthritis Scoliosis Non-smoker History of edema Thyroid eye disease Primary hyperparathyroidism Hyperparathyroidism Screening for osteoporosis Home Medications ???Medication ???Instructions ???Recorded ???Last Taken ???Type triamcinolone acetonide 0.5 % 1 applic topical .COMPLEX #45 gram s 02/22/19 Unknown Rx topical ointment cholecalciferol (vitamin D3) 50 50 mcg PO DAILY 05/21/24 Unknown H istory mcg (2,000 unit) capsule (Vitamin D3) Allergy/AdvReac Type Severity Reaction Status Date / Time aspirin (ASA) Allergy Intermediate Swelling Verified 05/21/24 11:04 Iodinated Contrast Media Allergy Mild Hives Verified 05/21/24 11:04 (contrast dye - iodinated) levofloxacin (From Levaquin) Allergy Other Verified 05/21/24 11:04 naproxen Allergy Other Verified 05/21/24 11:04 Penicillins Allergy Other Verified 05/21/24 11:0 (more content not included)... Normal [facility] Anion gap in Serum or Plasma Ordered By: Leigha Wynn on 05-17-2024 Anion gap [Moles/Vol] 9 mmol/L 5-15 [facility] BUN/creatinine ratioOrdered By: Leigha Wynn on 05-17-2024 Urea nitrogen/Creatinine [Mass ratio] 26.9 mg/mg High 10-20 [facility] Bilirubin, totalOrdered By: Leigha Wynn on 05-17-2024 Bilirubin [Mass/Vol] 0.44 mg/dL 0.00-1.30 [facility] CBC-Complete Blood Cnt No Di ffon 05-17-2024 Erythrocyte distribution width (RBC) [Ratio] 12.9 % Normal 11.6-14.6 [facility] Comment on above: Performed By: #### L 501.2200, L509.1000, L506.1000, L3300.6900 #### [facility] [address] [place], [address] Hematocrit (Bld) [Volume fraction] 44.7 % Normal 37-47 [facility] Comment on above: Performed By: #### L 501.2200, L509.1000, L506.1000, L3300.6900 #### [facility] [address] [place], [address] Hemoglobin (Bld) [Mass/Vol] 15.0 g/dL Normal 12.0-15.0 [facility] Comment on above: Performed By: #### L 501.2200, L509.1000, L506.1000, L3300.6900 #### [facility] [address] [place], [address] MCH (RBC) [Entitic mass] 31.4 pg Normal 27.0-32.0 [facility] Comment on above: Performed By: #### L 501.2200, L509.1000, L506.1000, L3300.6900 #### [facility] [address] [place], [address] MCHC (RBC) [Mass/Vol] 33.6 g/dL Normal 32-36 [facility] Comment on above: Performed By: #### L 501.2200, L509.1000, L506.1000, L3300.6900 #### [facility] [address] [place], [address] MCV (RBC) [Entitic vol] 93.5 fL Normal 81-99 [facility] Comment on above: Performed By: #### L 501.2200, L509.1000, L506.1000, L3300.6900 #### [facility] [address] [place], [address] Platelet mean volume (Bld) [Entitic vol] 10.8 fL Normal 6.2-12.0 [facility] Comment on above: Performed By: #### L 501.2200, L509.1000, L506.1000, L3300.6900 #### [facility] [address] [place], [address] Platelets (Bld) [#/Vol] 276 10*3/uL Normal 150-450 [facility] Comment on above: Performed By: #### L 501.2200, L509.1000, L506.1000, L3300.6900 #### [facility] [address] [place], [address] RBC (Bld) [#/Vol] 4.78 10*6/uL Normal 4.2-5.4 [facility] Comment on above: Performed By: #### L 501.2200, L509.1000, L506.1000, L3300.6900 #### [facility] [address] [place], [address] RDW SD 45.0 fl High 35.1-43.9 [facility] Comment on above: Performed By: #### L 501.2200, L509.1000, L506.1000, L3300.6900 #### [facility] [address] [place], [address] WBC (Bld) [#/Vol] 6.3 10*3/uL Normal 4.4-11.0 [facility] Comment on above: Performed By: #### L 501.2200, L509.1000, L506.1000, L3300.6900 #### [facility] [address] [place], [address] Calculated very low density lipoprotein (VLDL) cholesterol measurementOrdered By: Leigha Wynn on 05-17-2024 Calculated very low density lipoprotein (VLDL) cholesterol measurement 19 mg/dL 5-40 [facility] VLDL Cholesterol 19 mg/dL 5-40 [facility] Carbon dioxide, total [Moles /volume] in Central venous bloodOrdered By: Leigha Wynn on 05-17-2024 CO2 [Moles/Vol] 25.0 mmol/L 21.0-32.0 [facility] Chloride assayOrdered By: Jairo Wynn on 05-17-2024 Chloride [Moles/Vol] 105 mmol/L 98-108 [facility] Comprehensive Metabolic Prof ilon 05-17-2024 Albumin [Mass/Vol] 4.1 g/dL Normal 3.5-5.0 [facility] Comment on above: Performed By: #### L 509.1000 #### [facility] [address] [place], [address] Albumin/Globulin [Mass ratio] 1.5 {ratio} Normal 0.9-2.4 [facility] Comment on above: Performed By: #### L 509.1000 #### [facility] [address] [place], [address] ALK PHOS 64 U/L Normal 35-104 [facility] Comment on above: Performed By: #### L 509.1000 #### [facility] [address] [place], [address] ALT [Catalytic activity/Vol] 33 U/L Normal <=34 [facility] Comment on above: Performed By: #### L 509.1000 #### [facility] [address] [place], [address] AST [Catalytic activity/Vol] 27 U/L Normal <=31 [facility] Comment on above: Performed By: #### L 509.1000 #### [facility] [address] [place], [address] Bilirubin [Mass/Vol] 0.44 mg/dL Normal 0.00-1.30 [facility] Comment on above: Performed By: #### L 509.1000 #### [facility] [address] [place], [address] BUN/CRE 26.9 RATIO High 10-20 [facility] Comment on above: Performed By: #### L 509.1000 #### [facility] [address] [place], [address] Calcium [Mass/Vol] 11.4 mg/dL High 7.6-11.0 [facility] Comment on above: Performed By: #### L 509.1000 #### [facility] [address] [place], [address] Chloride [Moles/Vol] 105 mmol/L Normal 98-108 [facility] Comment on above: Performed By: #### L 509.1000 #### [facility] [address] [place], [address] CO2 [Moles/Vol] 25.0 mmol/L Normal 21.0-32.0 [facility] Comment on above: Performed By: #### L 509.1000 #### [facility] [address] [place], [address] Creatinine [Mass/Vol] 0.89 mg/dL Normal 0.70-1.20 [facility] Comment on above: Performed By: #### L 509.1000 #### [facility] [address] [place], [address] GAP 9 Normal 5-15 [facility] Comment on above: Performed By: #### L 509.1000 #### [facility] [address] [place], [address] GFR/1.73 sq M.predicted among non-blacks MDRD (S/P/Bld) [Vol rate/Area] 75 mL/min/{1.73_m2} Normal >60 [facility] Comment on above: Result Comment: mL/m in/1.73m2 CKD-EPI Creatinine Equation (2020) Performed By: #### L 509.1000 #### [facility] [address] [place], [address] Globulin (S) [Mass/Vol] 2.8 g/dL Normal 2.2-4.2 [facility] Comment on above: Performed By: #### L 509.1000 #### [facility] [address] [place], [address] Glucose [Mass/Vol] 91 mg/dL Normal 70-99 [facility] Comment on above: Performed By: #### L 509.1000 #### [facility] [address] [place], [address] Potassium [Moles/Vol] 4.6 mmol/L Normal 3.3-5.1 [facility] Comment on above: Performed By: #### L 509.1000 #### [facility] [address] [place], [address] Sodium [Moles/Vol] 138 mmol/L Normal 133-145 [facility] Comment on above: Performed By: #### L 509.1000 #### [facility] [address] [place], [address] T PROT 6.9 g/dL Normal 5.9-8.4 [facility] Comment on above: Performed By: #### L 509.1000 #### [facility] [address] [place], [address] Urea nitrogen [Mass/Vol] 24 mg/dL High 4-19 [facility] Comment on above: Performed By: #### L 509.1000 #### [facility] [address] [place], [address] Erythrocyte distribution wid th ratioOrdered By: Leigha Wynn on 05-17-2024 Erythrocyte distribution width (RBC) [Ratio] 12.9 % 11.6-14.6 [facility] Erythrocyte distribution wid th standard deviationOrdered By: Leigha Wynn on 05-17-2024 Erythrocyte distribution width (RBC) [Entitic vol] 45.0 fL High 35.1-43.9 [facility] Erythrocyte distribution width (RBC) [Ratio] 45.0 fl High 35.1-43.9 [facility] GFR/1.73 sq M.predicted khai g non-blacks MDRD (S/P/Bld) [Vol rate/Area]Ordered By: Leigha Wynn on 05-17-2024 Estimated GFR (MDRD) Non-Af Amer 75 >60 [facility] Comment on above: mL/min/1.73m2 CKD-EP I Creatinine Equation (2020) Glomerular filtration rate ( GFR) estimation/1.73 sq m using serum, plasma, or whole bOrdered By: Leigha Wynn on 05-17-2024 GFR/1.73 sq M.predicted among non-blacks MDRD (S/P/Bld) [Vol rate/Area] 75 mL/min/{1.73_m2} >60 [facility] Comment on above: mL/min/1.73m2 CKD-EP I Creatinine Equation (2020) Hematocrit Auto (Bld) [Volum e fraction]Ordered By: Leigha Wynn on 05-17-2024 Hematocrit (Bld) [Volume fraction] 44.7 % 37-47 [facility] Hemoglobin A1con 05-17-2024 HbA1c (Bld) [Mass fraction] 5.6 % Low <=5.6 [facility] Comment on above: Performed By: #### L 509.1000 #### [facility] [address] [place], [address] Hemoglobin A1c percentageOrd ered By: Leigha Wynn on 05-17-2024 HbA1c (Bld) [Mass fraction] 5.6 % Low >5.7 [facility] Hemoglobin measurementOrdere d By: Leigha Wynn on 05-17-2024 Hemoglobin (Bld) [Mass/Vol] 15.0 g/dL 12.0-15.0 [facility] Hepatitis C antibodyOrdered By: Leigha Wynn on 05-17-2024 Hepatitis C Antibody Non-Reactive Nonreactive [facility] Comment on above: Reactive: Presumptiv e evidence of antibodies to HCV. Follow CDC recommendations for supplemental testing.Non-Reactive: Antibodies to HCV were not detected; does not exclude the possibility of exposure to HCVReactive Results are presumptive evidence of antibodies to HCV. Follow CDC recommendations for supplemental testing.Order confirmation testing: HCV Quant by PCR testing - HCVPCR #[id number] Non Reactive: < 0.8 Equivocal: >/= 0.8 to < 1.0 Reactive: >/= 1.0The CDC requires that a reactive/equivocal HCV antibody result be sent out for confirmation. HCV Quant by PCR testing. L3890.6301on 05-17-2024 Hepatitis C Ab Non-Reactive Normal Nonreactive [facility] Comment on above: Result Comment: Reac tive: Presumptive evidence of antibodies to HCV. Follow CDC recommendations for supplemental testing. Non-Reactive: Antibodies to HCV were not detected; does not exclude the possibility of exposure to HCV Reactive Results are presumptive evidence of antibodies to HCV. Follow CDC recommendations for supplemental testing. Order confirmation testing: HCV Quant by PCR testing - HCVPCR #[id number] Non Reactive: < 0.8 Equivocal: >/= 0.8 to < 1.0 Reactive: >/= 1.0 The [facility] requires that a reactive/equivocal HCV antibody result be sent out for confirmation. HCV Quant by PCR testing. Performed By: #### L 509.1000 #### [facility] [address] [place], [address] L506.1001on 05-17-2024 Vitamin D 25-OH 22.3 ng/mL Low 30-100 [facility] Comment on above: Result Comment: Magdalena min D Status Deficiency: <20 ng/mL (50nmol/L) Insufficiency: 20-30 ng/mL (50-75 nmol/L) Sufficiency: 30-100 ng/mL (75-250 nmol/L) Toxicity: >100 ng/mL (>250 nmol/L) Performed By: #### L 509.1000 #### [facility] [address] [facility] [place], [place], [address] LDL calc ser/plasOrdered By: Leigha Wynn on 05-17-2024 Cholesterol in LDL [Mass/Vol] 128 mg/dL [facility] Comment on above: Gfuayrtwdc=007-691 m g/dL & Higher Nnle=195 mg/dL or greater LDL Cholesterol, Calculated 128 mg/dL [facility] Comment on above: Bivitrrkkp=956-067 m g/dL & Higher Pkoe=917 mg/dL or greater Laboratory - Chemistry and C hemistry - challengeOrdered By: Leigha Wynn on 05-17-2024 AST [Catalytic activity/Vol] 27 U/L <32 [facility] Lipid Profileon 05-17-2024 CHOL:HDL 6.04 Normal [facility] Comment on above: Performed By: #### L 509.1000 #### [facility] [address] [place], [address] Cholesterol [Mass/Vol] 177 mg/dL Normal <=200 [facility] Comment on above: Result Comment: Chol esterol level, Desirable <200 mg/dL Borderline high cholesterol 200-239 mg/dL High cholesterol >=240 mg/dL Recommendations of the NCEP Adult Treatment Panel for the following risk-cutoff thresholds for the [place] population. Performed By: #### L 509.1000 #### [facility] [address] [facility] [address] Cholesterol in HDL [Mass/Vol] 29 mg/dL Low [facility] Comment on above: Result Comment: Liv onal Cholesterol Education Program (NCEP) guidelines: <40 mg/dL: Low HDL-cholesterol (major risk factor for CHD) >= 60 mg/dL: High HDL-cholesterol (negative risk factor for CHD) HDL-cholesterol is affected by a number of factors, e.g. smoking, exercise, hormones, sex and age. Performed By: #### L 509.1000 #### [facility] [address] [facility] [address] Cholesterol in LDL [Mass/Vol] 128 mg/dL Normal [facility] Comment on above: Result Comment: Bord mioovy=710-243 mg/dL Higher Pynh=363 mg/dL or greater Performed By: #### L 509.1000 #### [facility] [address] [facility] [address] Cholesterol in VLDL [Mass/Vol] 19 mg/dL Normal 5-40 [facility] Comment on above: Performed By: #### L 509.1000 #### [facility] [address] [facility] [address] Triglyceride [Mass/Vol] 97 mg/dL Normal [facility] Comment on above: Result Comment: The drugs N-Acetylcysteine and Metamizole may falsely depress this assay. Normal range: <150 mg/dL Borderline High: 150-199 mg/dL High: 200-499 mg/dL Very High: >500 mg/dL Performed By: #### L 509.1000 #### [facility] [address] [place], [address] MCV (mean corpuscular volume ) determinationOrdered By: Leigha Wynn on 05-17-2024 MCV (RBC) [Entitic vol] 93.5 fL 81-99 [facility] Mean corpuscular hemoglobin (MCH) determinationOrdered By: Leigha Wynn on 05-17-2024 MCH (RBC) [Entitic mass] 31.4 pg 27.0-32.0 [facility] Mean corpuscular hemoglobin concentration (MCHC) determinationOrdered By: Leigha Wynn on 05-17-2024 MCHC (RBC) [Mass/Vol] 33.6 g/dL 32-36 [facility] Mean platelet volume determi nationOrdered By: Leigha Wynn on 05-17-2024 Platelet mean volume (Bld) [Entitic vol] 10.8 fL 6.2-12.0 [facility] PTH intactOrdered By: Leigha Wynn on 05-17-2024 Parathyroid Hormone (Intact) 172 pg/mL High 11- [facility] PTHINon 05-17-2024 PTH 172 pg/mL High [facility] Comment on above: Performed By: #### L 501.2200, L509.1000, L506.1000, L3300.6900 #### [facility] [address] [place], [address] Platelet countOrdered By: Jairo Wynn on 05-17-2024 Platelets (Bld) [#/Vol] 276 10*3/uL 150-450 [facility] Potassium (Unsp spec) [Mass/ Vol]Ordered By: Leigha Wynn on 05-17-2024 Potassium [Moles/Vol] 4.6 mmol/L 3.3-5.1 [facility] Potassium measurement (mass/ volume)Ordered By: Leigha Wynn on 05-17-2024 Potassium (Unsp spec) [Mass/Vol] 4.6 mmol/L 3.3-5.1 [facility] RBC Auto (Bld) [#/Vol]Ordere d By: Leigha Wynn on 05-17-2024 RBC (Bld) [#/Vol] 4.78 10*6/uL 4.2-5.4 [facility] Screening total cholesterol/ high density lipoprotein (HDL) cholesterol ratioOrdered By: Leigha Wynn on 05-17-2024 Cholesterol.total/Nan sterol in HDL [Mass ratio] 6.04 {ratio} [facility] Serum creatinine measurement (mass/volume)Ordered By: Leigha Wynn on 05-17-2024 Creatinine [Mass/Vol] 0.89 mg/dL 0.70-1.20 [facility] Serum globulin measurementOr dered By: Leigha Wynn on 05-17-2024 Globulin (S) [Mass/Vol] 2.8 g/dL 2.2-4.2 [facility] Serum glucose measurement (m ass/volume)Ordered By: Leigha Wynn on 05-17-2024 Glucose [Mass/Vol] 91 mg/dL 70-99 [facility] Serum or plasma alanine ortiz otransferase (ALT) measurementOrdered By: Leigha Wynn on 05-17-2024 ALT [Catalytic activity/Vol] 33 U/L <35 [facility] Serum or plasma albumin leta urement (mass/volume)Ordered By: Leigha Wynn on 05-17-2024 Albumin [Mass/Vol] 4.1 g/dL 3.5-5.0 [facility] Serum or plasma albumin/glob ulin mass ratioOrdered By: Leigha Wynn on 05-17-2024 Albumin/Globulin [Mass ratio] 1.5 {ratio} 0.9-2.4 [facility] Serum or plasma alkaline ailyn sphatase measurementOrdered By: Leigha Wynn on 05-17-2024 ALP [Catalytic activity/Vol] 64 U/L 35-104 [facility] Serum or plasma calcium leta urement (mass/volume)Ordered By: Leigha Wynn on 05-17-2024 Calcium [Mass/Vol] 11.4 mg/dL High 7.6-11.0 [facility] Serum or plasma cholesterol in HDL measurement (mass/volume)Ordered By: Leigha Wynn on 05-17-2024 Cholesterol in HDL [Mass/Vol] 29 mg/dL Low >40 [facility] Comment on above: National Cholesterol Education Program (NCEP) guidelines:<40 mg/dL: Low HDL-cholesterol (major risk factor for CHD)>= 60 mg/dL: High HDL-cholesterol (negative risk factor for CHD)HDL-cholesterol is affected by a number of factors, e.g. smoking, exercise, hormones, sex and age. Serum or plasma cholesterol measurement (mass/volume)Ordered By: Leigha Wynn on 05-17-2024 Cholesterol [Mass/Vol] 177 mg/dL <201 [facility] Comment on above: Cholesterol level, D esirable <200 mg/dLBorderline high cholesterol 200-239 mg/dLHigh cholesterol >=240 mg/dLRecommendations of the NCEP Adult Treatment Panel for the following risk-cutoff thresholds for the [place] population. Serum or plasma urea nitroge n measurement (mass/volume)Ordered By: Leigha Wynn on 05-17-2024 Urea nitrogen [Mass/Vol] 24 mg/dL High 4-19 [facility] Sodium levelOrdered By: Jerel Wynn on 05-17-2024 Sodium [Moles/Vol] 138 mmol/L 133-145 [facility] Total proteinOrdered By: Thea Wynn on 05-17-2024 Protein [Mass/Vol] 6.9 g/dL 5.9-8.4 [facility] Triglycerides measurementOrd ered By: Leigha Wynn on 05-17-2024 Triglyceride [Mass/Vol] 97 mg/dL <199 [facility] Comment on above: The drugs N-Acetylcy steine and Metamizole may falsely depress this assay. Normal range: <150 mg/dLBorderline High: 150-199 mg/dLHigh: 200-499 mg/dLVery High: >500 mg/dL Vitamin D, 25-hydroxyOrdered By: Leigha Wynn on 05-17-2024 Vitamin D 25-Hydroxy 22.3 ng/mL Low 30-100 [facility] Comment on above: Vitamin D StatusDefi ciency: <20 ng/mL (50nmol/L)Insufficiency: 20-30 ng/mL (50-75 nmol/L)Sufficiency: 30-100 ng/mL (75-250 nmol/L)Toxicity: >100 ng/mL (>250 nmol/L) White blood cell (WBC) count Ordered By: Leigha Wynn on 05-17-2024 WBC (Bld) [#/Vol] 6.3 10*3/uL 4.4-11.0 [facility] Surgery Visit Reporton 05-01 Surgery Visit Report [facility] [address] [place] [address] OFFICE VISIT Date of Service: 05/01/24 MR#: [id number] Acct: [id number] Name: SILKE LOPEZ Rep #: [id number] : 1965 Provider: Dr. Errol santiago MD Age/Sex: 58/F Location: [facility] Status: Signed Intake Vital Signs 03/19/24 08:43 05/01/24 08:20 Height 5 ft 3 in 5 ft 3 in Weight: 250 lb BMI 44.2 BP 109/74 Blood Pressure Location Lt brachial Position Sitting Respiration 17 Pulse 69 Pulse Source Monitor Pulse Oximetry (%) 100 Oxygen Delivery Method room air Intake Visit Reasons: parathyroid adenoma Chief Complaint: parathyroid adenoma Is patient in pain?: No Allergies aspirin (ASA) Allergy (Intermediate, Verified 05/01/24 08:21) Swelling Iodinated Contrast Media (contrast dye - iodinated) Allergy (Mild, Verified 05/01/24 08:21) Hives levofloxacin (From Levaquin) Allergy (Verified 05/01/24 08:21) Other naproxen Allergy (Verified 05/01/24 08:21) Other Penicillins Allergy (Verified 05/01/24 08:21) Other Medications ???Medication ???Instructions ???Recorded ???Confirmed ???Type triamcinolone acetonide 0.5 % 1 applic topical .COMPLEX #45 gram s 02/22/19 05/01/24 Rx topical ointment cholecalciferol (vitamin D3) 25 50,000 mcg PO QWEEK 03/19/2405/01 History mcg (1,000 unit) capsule [facility] Medical History Thyroid eye disease Primary hyperparathyroidism Hyperparathyroidism Screening for osteoporosis Surgical History S/P D C (status post dilation and curettage) S/P appendectomy Family History Father Cancer Prostate Sister Cancer cholangiocarcinoma- Bile duct Grandfather Cancer Prostate Social History household members: spouse current occupational status: employed current occupation: [employer] Smoking Status: Never smoker alcohol intake: never substance use type: does not use seatbelt use: always do you feel safe at home: Yes additional social history: - [employer]- Retired HPI HPI HPI: Patient is a 58-year-old female who presents for consultation related to diagnosis of primary hyperparathyroidism. They are referred from Dr. Salo Boles of endocrinology and PCP Ms. Leigha Wynn NP. Patient has a history of osteo pi???a given a T-score of -1.6 on DEXA imaging obtained 04/18/2024. Patient has no history of pathologic fractures. Patient has no history of kidney stones. Patient has no history of frequent dental caries or chipped teeth. Patient does have a history of brittle fingernails. Patient has no history of GERD. Patient has no history of hypertension. Additional symptoms include: Pertinent positives: Fatigue, constipation, memory difficulties/pertinen t negatives: No depression, no concentration difficulty Patient has no history of prior radiation exposure. Patient has a family history of other endocrinopathies and she mentions that a niece required thyroid removal Patient [does/does not] have a diet high in dairy. Patient's current labs are calcium: 11.9 mg/dL (03/19/2024) range of 9.9-11.9 since 2019, Vitamin D: 32.7 ng/mL (03/19/2024, Ionized calcium: [Value]mg/dL [date], PTH: 204.1 pg/mL (03/19/2024)???jasmyne r value, Phosphorus: [Value] [date] Current medications include: Vitamin D supplementation with 2000 international units daily (previously 50,000 international units weekly). Imaging has been done thyroid ultrasound 03/28/2024 showing no thyroid nodules mild right thyroid lobe measuring 4.4 x 1.7 x 2.0 cm left thyroid lobe measuring 3.6 x 1.4 x 1.3 cm. No mention was made of parathyroid adenoma candidate. Patient then went on to have sestamibi imaging 04/09/2024 which showed probable left inferior parathyroid adenoma. Patient [has/has not] had renal imaging [on date] [which showed: Imaging findings]. ROS General General: Yes weight change and fatigue; No appetite, colon cancer, breast cancer or weakness Additional Details: Intentional wt loss. Using wt watchers HEENT HEENT: Yes difficulty swallowing; No eye injury, eye surgery, swollen glands or hoarseness Endo Endocrine: Yes thyroid disease; No diabetes mellitus, thyroid cancer, Hair loss, heat intolerance or cold intolerance Skin Skin: No rash or changing moles Musc Musculoskeletal: No back problems, arthritis, rheumatoid arthritis, gout or joint pain Cardio Cardiovascular: No murmur, pacemaker, heart disease, atrial fibrillation, high blood pressure, heart attack, heart stent, palpitations, shortness of breat with exertion or chest pain Psych Psychiatric: No (more content not included)... Normal [facility] Dexa Bone Density Studyon Dexa Bone Density Study [facility] Services [address] [place] [address] Dexa Bone Density Study MR#: [id number] Acct: [id number] Name: SILKE LOPEZ Rep #: [id number] : 1965 F 58 From: Butch Kinney i DO PCP: EDGAR Long Status: REG CLI Study: Dexa Bone Density Study Date of Exam: 04/18/24 Exam# [id number] Ordering Dr: Salo Boles MD PROCEDURE: DEXA BONE DENSITY STUDY REASON FOR EXAM: Osteoporosis screening TECHNIQUE: DEXA scan of the lumbar spine and both hips. COMPARISON: None. FINDINGS: Lumbar spine: Bone mineral density is 0.989 g per cm2. T-score -0.5. Left hip: Bone mineral density 0.668 g per sq cm and T-score of -1.6. Right hip: Bone mineral density 0.709 g per sq cm and T-score of -1.3. FRAX* Results: 10 Year Probability of Fracture: Hip Fracture(1): 0.6%% Major Osteoporotic Fracture(2): 7%% *FRAX is a trademark of the [employer] [place] for Metabolic Bone Disease, World Health Organization (WHO) Collaborating [place]. 1-The 10-year probability of fracture may be lower than reported if the patient has received treatment. 2-Major Osteoporotic Fracture: Clinical Spine, Forearm, Hip or Shoulder. The T-scores are also available for review on the [facility] PACS or by accessing the [facility] electronic medical record. BD/Dexa Bone Density Study IMPRESSION: Osteopenia. Reading [facility] CC: EDGAR Wynn; Dr. Salo Boles MD Insurance Job Titles: Signed Normal [facility] Parathyroid Scanon Parathyroid scan [facility] Imaging Services [address] [place] [address] Parathyroid Scan MR#: [id number] Acct: [id number] Name: SILKE LOPEZ Rep #: [id number] : 1965 F 58 From: Maverick Turner PCP: EDGAR Long Status: REG CLI Study: Parathyroid Scan Date of Exam: 04/09/24 Exam# [id number] Ordering Dr: Salo Boles MD PROCEDURE: PARATHYROID SCAN REASON FOR EXAM: Hypercalcemia. Localization. TECHNIQUE: Nuclear medicine parathyroid imaging performed following intravenous technetium-99m sestamibi administration. Immediate and delayed anterior neck imaging was performed. RADIOPHARMACEUTICAL: 27.8 mCi technetium 99 M sestamibi intravenous. COMPARISON: None provided. FINDINGS: On initial imaging, extending from the left inferior thyroid lobe is seen a focus increased uptake, which persists on delayed imaging, the remaining bilateral thyroid showing partial diminishment on delayed imaging. This is concerning for the presence of a left inferior parathyroid adenoma. NM/Parathyroid Scan IMPRESSION: Findings concerning for a left inferior parathyroid adenoma. Reading Location: [id number] CC: EDGAR Wynn; Dr. Salo Boles MD Insurance Job Titles: Signed Normal [facility] Thyroidon 03-28-2024 Thyroid [facility] Imaging Services [address] [place], [place] [address] Thyroid MR#: [id number] Acct: [id number] Name: SILKE LOPEZ Rep #: [id number] : 1965 F 58 From: Aris Morales MD PCP: EDGAR Logn Status: REG CLI Study: Thyroid Date of Exam: 03/28/24 Exam# [id number] Ordering Dr: Salo Boles MD PROCEDURE: THYROID REASON FOR EXAM: Hyperparathyroidism TECHNIQUE: Real-time grayscale and color flow imaging was performed along with routine image documentation. COMPARISON: No relevant prior. FINDINGS: Right thyroid lobe measures 4.4 x 1.7 x 2.0 cm. Left thyroid lobe measures 3.6 x 1.4 x 1.3 cm.. Isthmus thickness is0.4 cm.. Thyroid Size: Normal Background Echotexture: Homogeneous. Thyroid Nodules: None US/Thyroid IMPRESSION: NORMAL THYROID ULTRASOUND Reading Location: [facility] CC: ISRRAEL-C Leigha Wynn; Dr. Salo Boles MD Insurance Job Titles: Signed Normal [facility] Thyroid Peroxidase ABon 02-28 THYR PEROX AB < 9 Normal 0-34 [facility] Comment on above: Result Comment: Perf ormed at: - [facility] [address] [id number] Cuff Setter Lockstitch: Kyaw Bowie PhD, Phone: [phone] Performed By: #### L 928.3117, Q444.1156, C561.2896, D3547.6214 #### [facility] [address] [place], [place], [id number] DOrdered By: Robert Boles on 03-19-2024 Vitamin D 25-Hydroxy 32.7 ng/mL [facility] Comment on above: Vitamin D 25(OH) Sta tus Range Deficiency <20 ng/mL (50nmol/L) Insufficiency 20 - 30 ng/mL (50 - 75 nmol/L) Sufficiency 30 - 100 ng/mL (75 - 250 nmol/L) Toxicity >100 ng/mL (>250 nmol/L) Calcium,Totalon 03-19-2024 CA,Total 11.9 mg/dL High 8.5-10.1 [facility] Comment on above: Performed By: #### L 501.2200, L509.1000, L506.1000, L3300.6900 #### [facility] [address] [place], [address] Endocrinology Visit Reporton 03-19-2024 Endocrinology Visit Report [facility] [address] [place], [place] [address] OFFICE VISIT Date of Service: 03/19/24 MR#: [id number] Acct: [id number] Name: SILKE LOPEZ Rep #: [id number] : 1965 Provider: Samantha Urias Age/Sex: 58/F Location: [facility] Status: Signed Intake Vital Signs 11/28/23 10:36 12/29/23 11:00 03/19/24 08:43 Height 5 ft 3 in 5 ft 3 in 5 ft 3 in Weight: 252 lb 2 oz BMI 44.6 BP 109/71 Blood Pressure Location Lt brachial Position Sitting Pulse 62 Pulse Oximetry (%) 98 Oxygen Delivery Method room air Intake Visit Reasons: Parathyroid Chief Complaint: Calcium/parathyroid Is patient in pain?: No Allergies aspirin (ASA) Allergy (Intermediate, Verified 03/19/24 08:52) Swelling Iodinated Contrast Media (contrast dye - iodinated) Allergy (Mild, Verified 03/19/24 08:52) Hives levofloxacin (From Levaquin) Allergy (Verified 03/19/24 08:52) Other naproxen Allergy (Verified 03/19/24 08:52) Other Penicillins Allergy (Verified 03/19/24 08:52) Other Medications ???Medication ???Instructions ???Recorded ???Confirmed ???Type triamcinolone acetonide 0.5 % 1 applic topical .COMPLEX #45 grams 02/22/19 01/12/24 Rx topical ointment cholecalciferol (vitamin D3) 25 50,000 mcg PO QWEEK 03/19/24 03/19/24 History mcg (1,000 unit) capsule PFSH Medical History (Updated 03/19/24 @ 14:[address] Salo Boles MD) Thyroid eye disease Primary hyperparathyroidism Hyperparathyroidism Screening for osteoporosis Surgical History S/P D C (status post dilation and curettage) S/P appendectomy Family History Father Cancer Prostate Sister Cancer cholangiocarcinoma- Bile duct Grandfather Cancer Prostate Social History household members: spouse current occupational status: employed current occupation: [employer] Smoking Status: Never smoker alcohol intake: never substance use type: does not use seatbelt use: always do you feel safe at home: Yes additional social history: - [employer]- Retired HPI HPI Chief Complaint: Calcium/parathyroid Details: SILKE LOPEZ, is a 58 F who presents to the office today for evaluation and management of parathyroid disease. January, Calcium 10.1 August, Calcium 9.9 October, Calcium 11.2 PTH 155 Vitamin D 16 Started on vitamin D2 50,000 IU weekly for 3 months, off for the past 3 weeks. Labs today: Calcium 11.9 PTH 204 vitamin D 32.7 No history of kidney stones or fracture. LMP about 10 years ago, never had bone density. She is waiting to get hysterectomy due to enlarged uterus. Surgery is on hold due to hypercalcemia. She has extensive FMH of thyroid disease, no personal history. Recent TSH is normal. She is accompanied by her mother who appears to help her answer some of the questions and helps her to understand the information. ROS Const Constitutional: No fatigue or weight change ENT ENT: No dizziness/vertigo Cardio Cardiology: No chest pain at rest, chest pain with exertion, shortness of breath or palpitations Skin Skin: No wounds Endo Endocrine: No fatigue or weight change Exam Const General: cooperative, healthy appearing, comfortable, no acute distress, well developed and not cushingoid Nutritional Appearance: well nourished and obese Orientation: alert, awake and oriented x3 HENMT Head: normal to inspection Ears: hearing grossly normal bilaterally Nose: external nose normal Mouth: oral mucosae normal Eyes General: dysmorphic (Mild SHARLENE with flare of upper eyelids) Alignment and Position: alignment normal Conjunctivae: conjunctivae normal Neck Neck: normal visual inspection Neck mass: No Thyroid: thyroid normal Lymphatic: no lymphadenopathy noted Chest Chest palpation inspection: normal inspection of the chest Resp Effort Inspection: normal respiratory effort, able to speak in complete sentences, symmetric chest movement, no audible wheezes and no cough Auscultation: Bilateral: Clear to Auscultation Cardio Rate: regular rate Rhythm: regular rhythm Skin General: no rashes or lesions noted Neuro General: patient alert, patient awake and patient oriented x3 Cranial Nerves: CN's II-XI intact bilaterally Cognition: normal cognition Speech: speech normal Gait: normal gait Motor: muscle tone normal throughout Extrem General: no edema Psych Appearance: grossly normal Mental Status: mental status grossly normal Mood: congruent mood Affect: normal affect Speech and Movement: speech and movement normal Attitude: cooperative Thought Process: n (more content not included)... Normal [facility] Intact parathyroid hormone ( iPTH) measurementOrdered By: Salo Boles on 03-19-2024 Parathyroid Hormone (Intact) 204.1 pg/mL High 18.4-80.1 [facility] PTHINon 03-19-2024 PTH 204.1 pg/mL High 18.4-80.1 [facility] Comment on above: Performed By: #### L 501.2200, L509.1000, L506.1000, L3300.6900 #### [facility] [address] [place] [address], [address] Serum or plasma calcium leta urement (mass/volume)Ordered By: Salo Boles on 03-19-2024 Calcium [Mass/Vol] 11.9 mg/dL High 8.5-10.1 [facility] Serum or plasma thyroperoxid ase antibody assay (units/volume)Ordered By: Salo Boles on 03-19-2024 TPO Ab Qn [IU]/mL 0-34 [facility] Comment on above: Performed at: [address] [id number] Director: Kyaw Bowie PhD, Phone: [phone] TPO Ab QnOrdered By: Salo Tony mynor on 03-19-2024 Thyroid Peroxidase Antibodies < 9 IU/mL 0-34 [facility] Comment on above: Performed at: [address] [id number] Director: Kyaw Bowie PhD, Phone: [phone] Vitamin D,25 Hydroxyon 03-19 Vitamin D 25-OH 32.7 ng/mL Normal [facility] Comment on above: Result Comment: Magdalena min D 25(OH) Status Range Deficiency <20 ng/mL (50nmol/L) Insufficiency 20 - 30 ng/mL (50 - 75 nmol/L) Sufficiency 30 - 100 ng/mL (75 - 250 nmol/L) Toxicity >100 ng/mL (>250 nmol/L) Performed By: #### L 501.2200, L509.1000, L506.1000, L3300.6900 #### [facility] [address] [place], [place], [address] Thyroid Stim Hormone (TSH)on 01-08-2024 TSH 2.900 uIU/mL Normal 0.358-3.740 [facility] Comment on above: Performed By: #### L 501.2200, L509.1000, L506.1000, L3300.6900 #### [facility] [address] [place], [place], [address] Fishing [employer]essel Deck[employer] Office Visit Reporton 12-29-2023 [employer] Office Visit Report [facility] [address], [address] [place] [address] OFFICE VISIT Date of Service: 12/29/23 MR#: [id number] Acct: [id number] Name: SILKE LOPEZ Rep #: [id number] : 1965 Provider: Dr. So Harrington DO Age/Sex: 58/F Location: [facility] Status: Signed Intake Vital Signs 11/28/23 10:36 12/29/23 10:59 12/29/23 11:00 Height 5 ft 3 in 5 ft 3 in 5 ft 3 in Weight: 271 lb 2 oz 262 lb 6 oz BMI 48.0 46.5 BP 122/78 H 109/71 Intake Visit Reasons: discuss surgery Sweet Pickle Maker Required: No Is patient in pain?: No Allergies aspirin (ASA) Allergy (Intermediate, Verified 12/29/23 10:59) Swelling Iodinated Contrast Media (contrast dye - iodinated) Allergy (Mild, Verified 12/29/23 10:59) Hives levofloxacin (From Levaquin) Allergy (Verified 12/29/23 10:59) Other naproxen Allergy (Verified 12/29/23 10:59) Other Penicillins Allergy (Verified 12/29/23 10:59) Other Medications ???Medication ???Instructions ???Recorded ???Confirmed ???Type triamcinolone acetonide 0.5 % 1 applic topical .COMPLEX #45 grams 02/22/19 12/29/23 Rx topical ointment cholecalciferol (vitamin D3) 25 25 mcg PO QDAY 11/28/23 12/29/23 History mcg (1,000 unit) capsule Post menopausal: No Patient : No : No PFSH Surgical History S/P D C (status post dilation and curettage) S/P appendectomy Family History Father Cancer Prostate Sister Cancer cholangiocarcinoma- Bile duct Grandfather Cancer Prostate Social History household members: spouse current occupational status: employed current occupation: [employer] Smoking Status: Never smoker alcohol intake: never substance use type: does not use seatbelt use: always do you feel safe at home: Yes 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 Her last period was 4 years ago and since then she has spotting every couple of months. Ultrasound showed a 13 cm uterus with 12mm lining. EMB showed simple hyperplasia without atypia. She is here today to discuss surgical options. She was told recently that her thyroid hormone was elevated. Records are with her PCP. She denies other health problems. History 4 Elective abortions Hx Para 3 Spontaneous abortions Hx # Term Pregnancies Ectopic pregnancies Hx # Pregnancies Multiple births # of living children 3 Past Pregnancies Del. Date Name GA/Weeks Outcome Route Bth Weight Infant Gen Labor Lgth Anesthesia Del Locatn Provider FOB Unknown Spencer Unknown Ngozi Unknown [place] ROS Const ROS Unobtainable: All systems reviewed are unremarkable except as noted in H Resp Resp: Reports system reviewed and no additional complaints, except as documented; Denies cough GI GI: Reports as per HPI Psych Psych: Reports system reviewed and no additional complaints, except as documented Exam Const General: cooperative, healthy appearing, comfortable and no acute distress Resp Effort Inspection: normal respiratory effort Skin General: no rashes or lesions noted Psych Appearance: grossly normal Speech and Movement: speech and movement normal Coding Level of Care Code Off vis,est,level 4 Diagnoses Enlarged uterus N85.2 Postmenopausal bleeding N95.0 Obesity E66.9 Endometrial hyperplasia without atypia, simple N85.01 Assessment and Plan Assessment and Plan (1) Enlarged uterus: Status: Acute (2) Postmenopausal bleeding: Status: Acute Comment: EMB pending. US ordered (3) Obesity: Status: Chronic Comment: Since 05/2022 lost 114# WW (4) Endometrial hyperplasia without atypia, simple: Status: Acute Plan: after a long discussion the decsion was made to proceed with a hysterectomy. Will need TSH level before can schedule. As soon as this returns, plan will be for treatment with endocrinology (appt in February) or start on levothyroxine and schedule robotic hysterectomy. 12/29/23 1330 Date So Osborne Signature: Date (if applicable) CC: Normal [facility] SCRN MAMM (CAD)W/ALBERTO andrews 12-08-2023 SCRN MAMM (CAD)W/ALBERTO PRABHAKAR [facility] Imaging Services [address] [place] [address] SCRN MAMM (CAD)W/ALBEROT BILAT MR#: [id number] Acct: [id number] Name: SILKE LOPEZ Rep #: [id number] : 1965 F 58 From: Socrates Brewer MD PCP: EDGAR Long Status: REG CLI Study: SCRN MAMM (CAD)W/ALBERTO BILAT Date of Exam: 11/27 03/22 Exam# [id number] Ordering Dr: Marybeth Garcia NP, NP -C [id number] MAMMOGRAPHY - BILATERAL SCREENING 3-D TOMOSYNTHESIS REASON FOR EXAM: Female, 58 years old. Screening for breast cancer PERTINENT HISTORY: No significant family history. TECHNIQUE: 2-D mammograms and 3-D Tomosynthesis of the breast (s) were performed. CAD was performed. COMPARISON: 02/02/2016 FINDINGS: The breast composition is composed of scattered fibroglandular density. Scattered benign calcifications are seen. No dense spiculated masses or suspicious microcalcifications are identified. No architectural distortion is identified. There is no skin thickening or retraction. There has been no significant change since the prior study. BI/SCRN MAMM (CAD)W/ALBERTO BILAT IMPRESSION: No mammographic signs of malignancy. Routine yearly mammograms recommended. ASSESSMENT CATEGORY: BIRADS Category 1: Negative. A letter regarding these results will be sent to the patient by the facility within 30 days. FOLLOW UP RECOMMENDATION: Yearly follow up mammogram recommended. (A) Approximately 10% of breast cancers are not detected by mammography. A normal mammogram should not delay biopsy of a clinically suspicious abnormality. Electronically Signed: Socrates Brewer MD at 13:44 EDT , CC: EDGAR Garcia; EDGAR Wynn Insurance Job Titles: Signed Normal [facility] Pelvic w/ Transvaginalon Pelvic w/ Transvaginal [facility] Imaging Services [address] [place] [address] Pelvic w/ Transvaginal MR#: [id number] Acct: [id number] Name: SILKE LOPEZ Rep #: [id number] : 1965 F 58 From: Delfino Olivera DO PCP: DEGAR Long Status: REG CLI Study: Pelvic w/ Transvaginal Date of Exam: 12/04/23 Exam# [id number] Ordering Dr: Marybeth Garcia NP [employer]ODU[employer] MAKER -C ADDENDUM by Dr. Oswaldo Retana MD on 12/06/23 at 1534 ======== ADDENDUM ======== [id number] ADDENDUM report. There is thickening of the endometrium at 10 mm. The patient is postmenopausal. Further investigation recommended. Electronically Signed: Oswalod Retana MD at 15:34 EDT , 12/06/23 1534 Date cc: EDGAR Garcia; EDGAR Wynn * Signed ADDENDUM by Dr. Oswaldo Retana MD on 12/06/23 at 1534 US/Pelvic w/ Transvaginal IMPRESSION: undefined 12/06/23 1541 Date cc: EDGAR Garcia; EDGAR Wynn * Signed [id number] INDICATION: PMB EXAMINATION: Ultrasound US Pelvis Non OB Complete With Transvaginal Imaging TECHNIQUE: Transabdominal and transvaginal pelvic ultrasound was performed. Grayscale, spectral waveform, and color flow Doppler evaluation of the adnexa. COMPARISON: __ FINDINGS: UTERUS: Anteverted. The uterus measures 13.0 x 6.3 x 4.5 cm. There is no uterine mass. The endometrial stripe measures 10 mm in AP diameter which is within normal limits. Nabothian cysts. RIGHT OVARY: Nonvisualization. LEFT OVARY: Nonvisualization. FREE FLUID: None. US/Pelvic w/ Transvaginal IMPRESSION: Nabothian cysts. Nonvisualization of the ovaries. Electronically Signed: Delfino Olivera DO at 17:02 EDT Reading Location ID and State: [facility] / [place] Tel [phone], Service support , CC: EDGAR Garcia; EDGAR Wynn Insurance Job Titles: Signed Normal [facility] PAP IG HPV APTIMA 16/18,45on 12-03-2023 ADEQ Comment Normal . [facility] Comment on above: Order Comment: Speci men Comment: [id number] Specimen Comment: Source.............Cervix Specimen Comment: Other..............Post Menopausal Specimen Comment: No. of containers..01 ThinPrep Vial Result Comment: Sati sfactory for evaluation. Endocervical and/or squamous metaplastic cells (endocervical component) are present. Performed By: #### L 7400.0280 #### [facility] [address] [place], [address] COMM . Normal . [facility] Comment on above: Order Comment: Speci men Comment: [id number] Specimen Comment: Source.............Cervix Specimen Comment: Other..............Post Menopausal Specimen Comment: No. of containers..01 ThinPrep Vial Performed By: #### L 7400.0280 #### [facility] [address] [place], [place], [id number] COMMENT Comment Normal . [facility] Comment on above: Order Comment: Speci men Comment: [id number] Specimen Comment: Source.............Cervix Specimen Comment: Other..............Post Menopausal Specimen Comment: No. of containers..01 ThinPrep Vial Result Comment: This liquid based ThinPrep(R) pap test was screened with the use of an image guided system. Performed By: #### L 7400.0280 #### [facility] [address] [facility] [place], [place], [id number] DIAG Comment Normal . [facility] Comment on above: Order Comment: Speci men Comment: [id number] Specimen Comment: Source.............Cervix Specimen Comment: Other..............Post Menopausal Specimen Comment: No. of containers..01 ThinPrep Vial Result Comment: NEGA TIVE FOR INTRAEPITHELIAL LESION OR MALIGNANCY. Performed By: #### L 7400.0280 #### [facility] [address] [place], [place], [id number] HPV APTIMA, HR Negative Normal Negative [facility] Comment on above: Order Comment: Speci men Comment: [id number] Specimen Comment: Source.............Cervix Specimen Comment: Other..............Post Menopausal Specimen Comment: No. of containers..01 ThinPrep Vial Result Comment: This nucleic acid amplification test detects fourteen high- risk HPV types (16,18,31,33,35,39,45,51,52,56,58,59,66,68) without differentiation. Performed By: #### L 7400.0280 #### [facility] [address] [place], [address] HPV Chloe Rfx Comment Normal . [facility] Comment on above: Order Comment: Speci men Comment: [id number] Specimen Comment: Source.............Cervix Specimen Comment: Other..............Post Menopausal Specimen Comment: No. of containers..01 ThinPrep Vial Result Comment: Crit eria not met, HPV Genotype not performed. Performed at: [address] [id number] Cuff Setter Lockstitch: Elvi Chan MD, Phone: [phone] Performed at: = - [address] [id number] Cuff Setter Lockstitch: Elvi Chan MD, Phone: [phone] Performed By: #### L 7400.0280 #### [facility] [address] [place], [address] PAPSMR Comment Normal . [facility] Comment on above: Order Comment: Speci men Comment: [id number] Specimen Comment: Source.............Cervix Specimen Comment: Other..............Post Menopausal Specimen Comment: No. of containers..01 ThinPrep Vial Result Comment: The Pap smear is a screening test designed to aid in the detection of premalignant and malignant conditions of the uterine cervix. It is not a diagnostic procedure and should not be used as the sole means of detecting cervical cancer. Both false-positive and false-negative reports do occur. Performed By: #### L 7400.0280 #### [facility] [address] [place], [address] PERFORM Comment Normal . [facility] Comment on above: Order Comment: Speci men Comment: [id number] Specimen Comment: Source.............Cervix Specimen Comment: Other..............Post Menopausal Specimen Comment: No. of containers..01 ThinPrep Vial Result Comment: Jeremy Nash, Tank Builder Supervisor (ASCP) Performed By: #### L 7400.0280 #### [facility] [address] [place], [place], [address] Fishing Vessel Deckhand Office Visit Reporton 11-28-2023 Fishing Vessel Deckhand Office Visit Report [facility] [address], [address] [place] [address] OFFICE VISIT Date of Service: 11/28/23 MR#: [id number] Acct: [id number] Name: SILKE LOPEZ Rep #: [id number] : 1965 Provider: EDGAR granado Age/Sex: 58/F [place] [facility] [place] Status: Signed Intake Vital Signs 01/28/20 00:29 11/28/23 10:36 Height 5 ft 3 in 5 ft 3 in Weight: 271 lb 2 oz BMI 48.0 BP 122/78 H Intake Visit Reasons: POSTMENOPAUSAL BLEEDING/SPOTTING (MIGUEL A GALVAN.) Chief Complaint: EMB-PMB Sweet Pickle Maker Required: No Is patient in pain?: No Allergies aspirin (ASA) Allergy (Intermediate, Verified 11/28/23 10:56) Swelling Iodinated Contrast Media (contrast dye - iodinated) Allergy (Mild, Verified 11/28/23 10:56) Hives levofloxacin (From Levaquin) Allergy (Verified 11/28/23 10:56) Other naproxen Allergy (Verified 11/28/23 10:56) Other Penicillins Allergy (Verified 11/28/23 10:56) Other Medications ???Medication ???Instructions ???Recorded ???Confirmed ???Type triamcinolone acetonide 0.5 % 1 applic topical .COMPLEX #45 grams 02/22/19 11/28/23 Rx topical ointment cholecalciferol (vitamin D3) 25 25 mcg PO QDAY 11/28/23 11/28/23 History mcg (1,000 unit) capsule Is last menstrual period known: No Post menopausal: Yes Patient : No : No PFSH PFSH Surgical History (Updated 11/28/23 @ 10:43 by Alisha Leger) S/P D C (status post dilation and curettage) S/P appendectomy Family History (Updated 11/28/23 @ 10:45 by Alisha Leger) Father Cancer Prostate Sister Cancer cholangiocarcinoma- Bile duct Grandfather Cancer Prostate Social History (Updated 11/28/23 @ 10:45 by Alisha Leger) household members: spouse current occupational status: employed current occupation: [employer] Smoking Status: Never smoker alcohol intake: never substance use type: does not use seatbelt use: always do you feel safe at home: Yes 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 Date Name GA/Weeks Outcome Route Bth Weight Gen Labor Lgth Anesthesia Del Locatn Provider FOB Unknown [place] Unknown [place] Unknown [place] HPI POSTMENOPAUSAL BLEEDING/SPOTTING (MIGUEL A GALVAN.) Details: SILKE LOPEZ is a 58 year old who presents for new patient with off and on vaginal spotting X 1 year. States prior to this had not had menses X 4 years. She has lost 113# since May 2022 doing WW. States that she had D C several years ago per Dr Hilliard for thickened uterine lining and then had no bleeding until last year. States not exam at least 4 years ROS Const Constitutional: Reports system reviewed and no additional complaints, except as documented Eyes Eyes: Reports system reviewed and no additional complaints, except as documented GI GI: Denies abdominal pain or change in bowel habits : Reports as per HPI Exam Const General: cooperative and no acute distress Nutritional Appearance: obese Orientation: oriented x3 External Female Exam: normal external appearance and normal appearance of the urethra Urethra: normal appearance of the urethra Speculum Exam - Vagina: normal appearance of the vagina and normal vaginal discharge Speculum Exam - Cervix: normal appearance of the cervix Bimanual Exam- Vagina Uterus: non-tender and enlarged (12 cm) Bimanual Exam- Adnexa, other: normal adnexae, no masses and non-tender Office Procedures Endometrial Biopsy Endometrial Biopsy Test: Yes Not Applicable Consent Signed: Yes Time out checklist: patient, procedure, site marked/identified, positioning of patient, supplies available, allergies confirmed and team agrees on procedure Time out time: 11:00 tenaculum used: Yes dilator used: No Details: Cervix prepped with dynahex soap and syringe pipelle inserted 10cm into uterus without complication. Specimen obtained and sent to lab for analysis. All instruments removed from vagina without complications. Excellent hemostasis noted. Coding Level of Care Code Attention Bull Float Finisher Diagnoses Postmenopausal bleeding N95.0 Enlarged uterus N85.2 CPT Codes Endometrial Biopsy (42973) Assessment and Plan Assessment and Plan (1) Postmenopausal bleeding: Status: Acute Comment: EMB pending. US ordered (2) Enlarged uterus: Status: Acute Orders: Orders Pelvic w/ Transvaginal Today N95.0 - Postmenopausal bleeding Endometrial Biopsy Today PAP IG HPV APTIMA 16/18,45 Today Z12.4 - Encounter for screening for malignant neop (more content not included)... Normal [facility] Surgery Specimen Level Nilda 11-28-2023 Surgery Specimen Level IV -------- Patient Age/Sex Location Account Attending Physician -------- SILKE LOPEZ 58/F LABSPEC [id number] EDGAR Rose -------- Specimen: [id number] Received: 11/28/23 Status: SOHAM Ann Num: [id number] Spec Type: ENDOM BX/C Julia Dr: EDGAR Rose HEADER OPERATION: Endometrial biopsy PRE-OP DIAGNOSIS: Postmenopausal bleeding TISSUE SUBMITTED: Endometrial tissue -------- MICROSCOPIC DIAGNOSIS Endometrial biopsy: Simple cystic endometrial hyperplasia without atypia. See comment. 11/29/2023 COMMENT A few of the fragments have polypoid appearance. May represent fragments of endometrial polyp. Clinical correlation and appropriate follow up are necessary. MICROSCOPIC DESCRIPTION Slides are reviewed. GROSS DESCRIPTION Received is one container labeled with the patient's name and not further designated. The specimen consists of multiple irregular fragments of pink mucoid tissue that in aggregate measure 2.5 x 2.0 x 0.1 cm. The specimen is totally submitted in one cassette. 11/28/2023 TC:5 CPT:55217 -------- Patient Age/Sex Location Account Attending Physician -------- SILKE LOPEZ 58/F LABSPEC [id number] EDGAR Rose -------- Signed (signature on file) Dr. Dominic Hui MD 11/29/23 1146 -------- Normal [facility] Comment on above: Performed By: #### L 501.2200, L509.1000, L506.1000, L3300.6900 #### [facility] [address] [place], [place] [address], [place], [id number] PTH, INTACT AND CALCIUMon Calcium [Mass/Vol] 11.2 mg/dL High 8.6-10.4 [facility] Comment on above: Order Comment: FASTI NG:YES FASTING: YES Performed By: #### 8 677, 28086 #### [facility] [address], [address] [place] [address] Steward/Stewardess Deck: Nabil Montaño MD PARATHYROID HORMONE, INTACT 155 pg/mL High 16-77 [facility] Comment on above: Order Comment: FASTI NG:YES FASTING: YES Result Comment: Interpretive Guide Intact PTH Calcium ------- Normal Parathyroid Normal Normal Hypoparathyroidism Low or Low Normal Low Hyperparathyroidism Primary Normal or High High Secondary High Normal or Low Tertiary High High Non-Parathyroid Hypercalcemia Low or Low Normal High Performed By: #### 8 867, 55444 #### [facility] [place] [address] Steward/Stewardess Deck: Nabil Montaño MD VITAMIN D,25-OH,TOTAL,IAon 0 11-17-2023 VITAMIN D,25-OH,TOTAL,IA 16 ng/mL Low 30-100 [facility] Comment on above: Result Comment: Magdalena min D Status 25-OH Vitamin D: Deficiency: <20 ng/mL Insufficiency: 20 - 29 ng/mL Optimal: > or = 30 ng/mL For 25-OH Vitamin D testing on patients on D2-supplementation and patients for whom quantitation of D2 and D3 fractions is required, the QuestAssureD(TM) 25-OH VIT D, (D2,D3), LC/MS/MS is recommended: order code 67152 (patients >2yrs). See Note 1 Note 1 For additional information, please refer to http://education.Construct/faq/HOX086 (This link is being provided for informational/ educational purposes only.) Performed By: #### 8 987, 65890 #### [place] [address] Steward/Stewardess Deck: Nabil Montaño MD CBC (INCLUDES DIFF/PLT)on Basophils (Bld) [#/Vol] 0.04 10*3/uL Normal 0-200 [facility] Comment on above: Performed By: #### 6 399, 20626, 493, 9600 #### [facility] [address], [address] [place], [place] [address] Steward/Stewardess Deck: Nabil Montaño MD Basophils/100 WBC (Bld) 0.8 % Normal [facility] Comment on above: Performed By: #### 6 399, 20548, 496, 7600 #### [facility] of [place] [address] Steward/Stewardess Deck: Nabil Montaño MD Eosinophils (Bld) [#/Vol] 0.1 10*3/uL Normal 15-500 [facility] Comment on above: Performed By: #### 6 399, 74091, 496, 7600 #### [facility] of [place] [address] Steward/Stewardess Deck: Nabil Montaño MD Eosinophils/100 WBC (Bld) 2.0 % Normal [facility] Comment on above: Performed By: #### 6 399, 40063, 496, 7600 #### [facility] of [place] [address] Steward/Stewardess Deck: Nabil Montaño MD Erythrocyte distribution width (RBC) [Ratio] 13.7 % Normal 11.0-15.0 [facility] Comment on above: Performed By: #### 6 399, 01186, 496, 7600 #### [facility] of [place] [address] Steward/Stewardess Deck: Nabil Montaño MD Hematocrit (Bld) [Volume fraction] 48.0 % High 35.0-45.0 [facility] Comment on above: Performed By: #### 6 399, 55070, 496, 7600 #### [facility] of [place] [address] Steward/Stewardess Deck: Nabil Montaño MD Hemoglobin (Bld) [Mass/Vol] 15.8 g/dL High 11.7-15.5 [facility] Comment on above: Performed By: #### 6 399, 03366, 496, 7600 #### [facility] of [place] [address] Steward/Stewardess Deck: Nabil Montaño MD Lymphocytes (Bld) [#/Vol] 1.48 10*3/uL Normal 850-3900 [facility] Comment on above: Performed By: #### 6 399, 84417, 496, 7600 #### [facility] of [place] [address] Steward/Stewardess Deck: Nabil Montaño MD Lymphocytes/100 WBC (Bld) 29.6 % Normal [facility] Comment on above: Performed By: #### 6 399, 37697, 496, 7600 #### [facility] of [place] [address] Steward/Stewardess Deck: Nabil Montaño MD MCH (RBC) [Entitic mass] 31.5 pg Normal 27.0-33.0 [facility] Comment on above: Performed By: #### 6 399, 37423, 496, 7600 #### [facility] of [place] [address] Steward/Stewardess Deck: Nabil Montaño MD MCHC (RBC) [Mass/Vol] 32.9 g/dL Normal 32.0-36.[address] [facility] Comment on above: Performed By: #### 6 399, 54815, 496, 7600 #### [facility] of [place] [address] Steward/Stewardess Deck: Nabil Montaño MD MCV (RBC) [Entitic vol] 95.6 fL Normal 80.0-100.0 [facility] Comment on above: Performed By: #### 6 399, 11958, 496, 7600 #### [facility] [place] [address] Steward/Stewardess Deck: Nabil Montaño MD Monocytes (Bld) [#/Vol] 0.35 10*3/uL Normal 200-950 [facility] Comment on above: Performed By: #### 6 399, 98227, 496, 7600 #### [facility] [place] [address] Steward/Stewardess Deck: Nabil Montaño MD Monocytes/100 WBC (Bld) 7.0 % Normal [facility] Comment on above: Performed By: #### 6 399, 31797, 496, 7600 #### [facility] of [address] [place] [address] Steward/Stewardess Deck: Nabil Montaño MD Neutrophils (Bld) [#/Vol] 3.03 10*3/uL Normal 5019-4732 [facility] Comment on above: Performed By: #### 6 399, 84442, 496, 7600 #### [facility] of [address], [address] [place] [address] Steward/Stewardess Deck: Nabil Montaño MD Neutrophils/100 WBC (Bld) 60.6 % Normal [facility] Comment on above: Performed By: #### 6 399, 73614, 496, 7600 #### [facility] of [address], [address] [place] [address] Steward/Stewardess Deck: Nabil Montaño MD Platelet mean volume (Bld) [Entitic vol] 10.7 fL Normal 7.5-12.5 [facility] Comment on above: Performed By: #### 6 399, 73239, 496, 7600 #### [facility] of [address], [address] [place] [address] Steward/Stewardess Deck: Nabil Montaño MD Platelets (Bld) [#/Vol] 276 10*3/uL Normal 140-400 [facility] Comment on above: Performed By: #### 6 399, 65389, 496, 7600 #### [facility] of [place] [address] Steward/Stewardess Deck: Nabil Montaño MD RBC (Bld) [#/Vol] 5.02 10*6/uL Normal 3.80-5.10 [facility] Comment on above: Performed By: #### 6 399, 06259, 496, 7600 #### [facility] of [place] [address] Steward/Stewardess Deck: Nabil Montaño MD WBC (Bld) [#/Vol] 5.0 10*3/uL Normal 3.8-10.8 [facility] Comment on above: Performed By: #### 6 399, 51166, 496, 7600 #### [facility] of [address], [address] [place] [address] Steward/Stewardess Deck: Nabil Montaño MD [facility] 10-27-2023 Albumin [Mass/Vol] 4.3 g/dL Normal 3.6-5.1 [facility] Comment on above: Performed By: #### 6 399, 02259, 496, 7600 #### [facility] of [address], [address] [place] [address] Steward/Stewardess Deck: Nabil Montaño MD Albumin/Globulin [Mass ratio] 1.5 {ratio} Normal 1.0-2.5 [facility] Comment on above: Performed By: #### 6 399, 63816, 496, 7600 #### [facility] of [place] [address] Steward/Stewardess Deck: Nabil Montaño MD ALP [Catalytic activity/Vol] 66 U/L Normal 37-153 [facility] Comment on above: Performed By: #### 6 399, 24600, 496, 7600 #### [facility] of [place] [address] Steward/Stewardess Deck: Nabil Montaño MD ALT [Catalytic activity/Vol] 21 U/L Normal 6-29 [facility] Comment on above: Performed By: #### 6 399, 98625, 496, 7600 #### [facility] of [place] [address] Steward/Stewardess Deck: Nabil Montaño MD AST [Catalytic activity/Vol] 17 U/L Normal 10-35 [facility] Comment on above: Performed By: #### 6 399, 79516, 496, 7600 #### [facility] of [place] [address] Steward/Stewardess Deck: Nabil Montaño MD Bilirubin [Mass/Vol] 0.8 mg/dL Normal 0.2-1.2 [facility] Comment on above: Performed By: #### 6 399, 70522, 496, 7600 #### [facility] of [address] [place] [address] Steward/Stewardess Deck: Nabil Montaño MD BUN/CREATININE RATIO SEE NOTE: Normal 6-22 [facility] Comment on above: Result Comment: Not Reported: BUN and Creatinine are within reference range. Performed By: #### 6 399, 79362, 496, 7600 #### [facility] [address], [address] [place] [address] Steward/Stewardess Deck: Nabil Montaño MD Calcium [Mass/Vol] 11.3 mg/dL High 8.6-10.4 [facility] Comment on above: Performed By: #### 6 399, 58340, 496, 7600 #### [facility] of [place] [address] Steward/Stewardess Deck: Nabil Montaño MD Chloride [Moles/Vol] 107 mmol/L Normal 98-110 [facility] Comment on above: Performed By: #### 6 399, 57053, 496, 7600 #### [facility] of [place] [address] Steward/Stewardess Deck: Nabil Montaño MD CO2 [Moles/Vol] 25 mmol/L Normal 20-32 [facility] Comment on above: Performed By: #### 6 399, 46529, 496, 7600 #### [facility] [place] [address] Steward/Stewardess Deck: Nabil Montaño MD Creatinine [Mass/Vol] 0.89 mg/dL Normal 0.50-1.[address] [facility] Comment on above: Performed By: #### 6 399, 33238, 496, 7600 #### [facility] of [place] [address] Steward/Stewardess Deck: Nabil Montaño MD GFR/1.73 sq M.predicted among non-blacks MDRD (S/P/Bld) [Vol rate/Area] 75 mL/min/{1.73_m2} Normal > OR = 60 [facility] Comment on above: Performed By: #### 6 399, 61490, 496, 7600 #### [facility] of [address], [address] [place] [address] Steward/Stewardess Deck: Nabil Montaño MD Globulin (S) [Mass/Vol] 2.8 g/dL Normal 1.9-3.7 [facility] Comment on above: Performed By: #### 6 399, 66320, 496, 7600 #### [facility] [place] [address] Steward/Stewardess Deck: Nabil Montaño MD Glucose [Mass/Vol] 89 mg/dL Normal 65-99 [facility] Comment on above: Result Comment: Fasting reference interval Performed By: #### 6 399, [id number], 496, 7600 #### [facility] [place] [address] Steward/Stewardess Deck: Nabil Montaño MD Potassium [Moles/Vol] 4.8 mmol/L Normal 3.5-5.[address] [facility] Comment on above: Performed By: #### 6 399, 60865, 496, 7600 #### [facility] [place] [address] Steward/Stewardess Deck: Nabil Montaño MD Protein [Mass/Vol] 7.1 g/dL Normal 6.1-8.1 [facility] Comment on above: Performed By: #### 6 399, 32424, 496, 7600 #### [facility] [place] [address] Steward/Stewardess Deck: Nabil Montaño MD Sodium [Moles/Vol] 139 mmol/L Normal 135-146 [facility] Comment on above: Performed By: #### 6 399, 53073, 496, 7600 #### [facility] [place] [address] Steward/Stewardess Deck: Nabil Montaño MD Urea nitrogen [Mass/Vol] 25 mg/dL Normal 7-25 [facility] Comment on above: Performed By: #### 6 399, 67340, 496, 7600 #### [facility] [place] [address] [place] [address] Steward/Stewardess Deck: Nabil Montaño MD HEMOGLOBIN A1con 10-27-2023 HEMOGLOBIN A1c 5.8 % of total Hgb High <5.7 [facility] Comment on above: Result Comment: For someone without known diabetes, a hemoglobin A1c value between 5.7% and 6.4% is consistent with prediabetes and should be confirmed with a follow-up test. For someone with known diabetes, a value <7% indicates that their diabetes is well controlled. A1c targets should be individualized based on duration of diabetes, age, comorbid conditions, and other considerations. This assay result is consistent with an increased risk of diabetes. Currently, no consensus exists regarding use of hemoglobin A1c for diagnosis of diabetes for children. This test was performed on the Ivis byron c503 platform. Effective 02/13/23, a change in test platforms from the P[employer] Transition Of Care Specialist to the Ivis byron c503 may have shifted HbA1c results compared to historical results. Based on laboratory validation testing conducted at [facility], the Ivis platform relative to the Pascual platform had an average increase in HbA1c value of < or = 0.3%. This difference is within accepted variability established by the National Glycohemoglobin Standardization Program. Note that not all individuals will have had a shift in their results and direct comparisons between historical and current results for testing conducted on different platforms is not recommended. Performed By: #### 6 399, 44412, 491, 0846 #### [facility] [address], [address] [place], [place] [id number] Steward/Stewardess Deck: Nabil Montaño MD HEPATITIS C AB W/REFL TO HCV RNA, QN, PCRon 10-27-2023 HEPATITIS C ANTIBODY Non-Reactive Normal NON-REACTIVE [facility] Comment on above: Result Comment: HCV antibody was non-reactive. There is no laboratory evidence of HCV infection. In most cases, no further action is required. However, if recent HCV exposure is suspected, a test for HCV RNA (test code 40117) is suggested. For additional information please refer to http://education.[employer]/faq/DNJ32z6 (This link is being provided for informational/ educational purposes only.) Performed By: #### 6 399, 88448, 496, 6740 #### [facility] [address], [address] [place] [address] Steward/Stewardess Deck: Nabil Montaño MD LIPID PANEL, [facility] [place] 09-29 Cholesterol [Mass/Vol] 206 mg/dL High <200 [facility] Comment on above: Order Comment: FASTI NG:YES FASTING: YES Performed By: #### 6 399, 43856, 496, 7600 #### [facility] [address], [address] [place] [address] Steward/Stewardess Deck: Nabil Montaño MD Cholesterol in HDL [Mass/Vol] 33 mg/dL Low > OR = 50 [facility] Comment on above: Order Comment: FASTI NG:YES FASTING: YES Performed By: #### 6 399, 73001, 496, 7600 #### [facility] [address], [address] [place] [address] Steward/Stewardess Deck: Nabil Montaño MD Cholesterol in LDL [Mass/Vol] 151 mg/dL High [facility] Comment on above: Order Comment: FASTI NG:YES FASTING: YES Result Comment: Refe rence range: <100 Desirable range <100 mg/dL for primary prevention; <70 mg/dL for patients with CHD or diabetic patients with > or = 2 CHD risk factors. LDL-C is now calculated using the Jose calculation, which is a validated novel method providing better accuracy than the Friedewald equation in the estimation of LDL-C. Oscar SS et al. JOSE LUIS. 2013;310(19): 3802-3202 (http://education.[employer]/faq/XBY557) Performed By: #### 6 399, 16441, 496, 7600 #### [facility] [address], [address] [place] [address] Steward/Stewardess Deck: Nabil Montaño MD Cholesterol.total/Nan sterol in HDL [Mass ratio] 6.2 {ratio} High <5.0 [facility] Comment on above: Order Comment: FASTI NG:YES FASTING: YES Performed By: #### 6 399, 70915, 496, 7600 #### [facility] [address], [address] [place] [address] Steward/Stewardess Deck: Nabil Montaño MD NON HDL CHOLESTEROL 173 mg/dL (calc) High <130 [facility] Comment on above: Order Comment: FASTI NG:YES FASTING: YES Result Comment: For patients with diabetes plus 1 major ASCVD risk factor, treating to a non-HDL-C goal of <100 mg/dL (LDL-C of <70 mg/dL) is considered a therapeutic option. Performed By: #### 6 399, 10119, 496, 7600 #### [facility] [address], [address] [place] [address] Steward/Stewardess Deck: Nabil Montaño MD Triglyceride [Mass/Vol] 106 mg/dL Normal <150 Q [facility] Comment on above: Order Comment: FASTI NG:YES FASTING: YES Performed By: #### 6 399, 48044, 496, 7600 #### [facility] [address], [address] [place] [address] Steward/Stewardess Deck: Nabil Montaño MD 36on 09-12-2023 36 S: Pt called CAC d/t Symptoms/Concerns: lump on stomach Provider: james daigle B: CAC RN attempted to call patient A No contact Pt last seen 02/27/2020 R: Left VM for pt to call back with any further questions or concerns. Reason for Disposition ? Message left on identified voicemail Protocols used: No Contact or Duplicate Contact [facility] Chest PA/LATon 10-11-2018 CR Chest PA/LAT Patient Name: SILKE LOPEZ Diagnostic Radiology Exam Date/Time 10/11/2018 14:47:08 EDT Exam CR Chest PA/LAT Ordering Physician DO DAIGLE PAUL E. Accession Number [id number] CPT4 Codes 39753 () Reason For Exam . Report Indication: Cough. Frontal and lateral views of the chest were compared to the study dated 01/09/2008. The heart is not enlarged. Mild atherosclerotic calcifications of the thoracic aorta are visualized. The mediastinum and pulmonary vascularity are within normal limits. There is mild prominence of the lung interstitium which is similar to the prior study and probably chronic in nature. There are no airspace infiltrates. Moderate to severe anterior wedge deformities of mid and lower thoracic vertebral bodies are visualized. The deformity of the lower thoracic vertebral body has progressed when compared to the previous study. The other has not significantly changed. IMPRESSION: 1. No active intrathoracic disease. No significant change when compared to the prior study. 2. Thoracic spine compression fractures. Report Dictated on Final Dictating Physician: DO CORONA ANTHONY Signed Date and Time: 10/11/2018 2:58 pm Signed by: DO CORONA ANTHONY Transcribed Date and Time: 10/11/2018 2:59 Normal [facility] [employer] [facility] XR CHEST STANDARD (2 VW)on 0 10-11-2018 Patient Name: SILKE LOPEZ ---Diagnostic Radiology--- Exam Date/Time 10/11/2018 14:47:08 EDT Exam CR Chest PA/LAT Ordering Physician DO DAIGLE PAUL E. Accession Number [id number] CPT4 Codes 75654 () Reason For Exam . Report Indication: Cough. Frontal and lateral views of the chest were compared to the study dated 01/09/2008. The heart is not enlarged. Mild atherosclerotic calcifications of the thoracic aorta are visualized. The mediastinum and pulmonary vascularity are within normal limits. There is mild prominence of the lung interstitium which is similar to the prior study and probably chronic in nature. There are no airspace infiltrates. Moderate to severe anterior wedge deformities of mid and lower thoracic vertebral bodies are visualized. The deformity of the lower thoracic vertebral body has progressed when compared to the previous study. The other has not significantly changed. IMPRESSION: 1. No active intrathoracic disease. No significant change when compared to the prior study. 2. Thoracic spine compression fractures. Report Dictated on --- Final --- Dictating Physician: DO CORONA ANTHONY Signed Date and Time: 10/11/2018 2:58 pm Signed by: DO CORONA ANTHONY Transcribed Date and Time: 10/11/2018 2:59 [facility], [facility], [facility] Incoming Radiology Results From [facility] - 10/11/2018 2:59 PM EDT Patient Name: SILKE LOPEZ ---Diagnostic Radiology--- Exam Date/Time 10/11/2018 14:47:08 EDT Exam CR Chest PA/LAT Ordering Physician DO DAIGLE PAUL E. Accession Number [id number] CPT4 Codes 00710 () Reason For Exam . Report Indication: Cough. Frontal and lateral views of the chest were compared to the study dated 01/09/2008. The heart is not enlarged. Mild atherosclerotic calcifications of the thoracic aorta are visualized. The mediastinum and pulmonary vascularity are within normal limits. There is mild prominence of the lung interstitium which is similar to the prior study and probably chronic in nature. There are no airspace infiltrates. Moderate to severe anterior wedge deformities of mid and lower thoracic vertebral bodies are visualized. The deformity of the lower thoracic vertebral body has progressed when compared to the previous study. The other has not significantly changed. IMPRESSION: 1. No active intrathoracic disease. No significant change when compared to the prior study. 2. Thoracic spine compression fractures. Report Dictated on --- Final --- Dictating Physician: DO CORONA ANTHONY Signed Date and Time: 10/11/2018 2:58 pm Signed by: DO CORONA ANTHONY Transcribed Date and Time: 10/11/2018 2:59 [place], [place] VL Venous Duplex US Lower Ex t Lefton 04-06-2017 VL Venous Duplex US Lower Ext Left Patient Name: SILKE LOPEZ Ultrasound Exam Date/Time 04/06/2017 17:12:55 EST Exam VL Venous Duplex US Lower Ext Left Ordering Physician DO DAIGLE PAUL E. Accession Number [id number] CPT4 Codes 26878 () Reason For Exam Left leg pain Report [facility] --- Left Lower Extremity Venous Duplex Report Patient Name: Silke Lopez : 1965 (51yrs) Study Date: 04/06/2017 Age: 51 Account: [id number] Gender: F Loc: BP: Ordering: Eron Daigle Technologist: Ordering Physician: Eron Daigle Trimming Cutter: Yoana Florez RDMS, T Interpreting Physician: Kyaw Delong MD --- Location: [facility] --- INDICATIONS: Pain in limb - left leg. --- CONCLUSIONS 1. This is a normal study. --- IMPRESSIONS: - This is a normal study. - These findings are negative for deep or superficial vein thrombosis in the left lower extremity --- HISTORY: Left lower extremity pain - proximal through distal calf x 2 days. Swelling of the left lower extremity - proximal through distal calf x 2 days. Redness of the left lower extremity - proximal through distal calf x 2 days. Risk factors: Cellulitis. --- STUDY DATA: Left lower extremity venous duplex evaluation. Birthdate: Patient birthdate: 1965. Age: Patient is 51 yr old. Sex: Gender: female. Ethnicity: Ethnicity: white. Doppler flow study including spectral analysis, color and wolf scale imaging. Patient status: Outpatient. Procedure: A vascular evaluation was performed. The images were obtained using a [employer] Aplio vascular ultrasound machine. --- VENOUS FLOW AND IMAGING: + --------+ --+ --+ !Location !Overall !Flow properties ! + --------+ --+ --+ !Left common femoral !Patent !Normal phasicity; spontaneous; ! ! ! !normal augmentation; ! ! ! !compressible ! + --------+ --+ --+ !Left saphenofemoral junction!Patent !Compressible ! + --------+ --+ --+ !Left profunda femoral !Patent !Normal phasicity; spontaneous; ! ! ! !normal augmentation ! + --------+ --+ --+ !L femoral proximal !Patent !Compressible ! + --------+ --+ --+ !L femoral mid !Patent !Normal phasicity; spontaneous; ! ! ! !normal augmentation; ! ! ! !compressible ! + --------+ --+ --+ !L femoral distal !Patent !Compressible ! + --------+ --+ --+ !Left popliteal !Patent !Normal phasicity; spontaneous; ! ! ! !normal augmentation; ! ! ! !compressible ! + --------+ --+ --+ !Left gastrocnemius !Patent !Compressible ! + --------+ --+ --+ !Left posterior tibial !Patent !Compressible ! + --------+ --+ --+ !Left peroneal !Patent !Compressible ! + --------+ --+ --+ !Left soleal !Not visualized! --! + --------+ --+ --+ !Left greater saphenous !Patent !Compressible ! + --------+ --+ --+ !Left lesser saphenous !Patent !Compressible ! + --------+ --+ --+ !Right common femoral !Patent !Normal phasicity; spontaneous; ! ! ! !normal augmentation; ! ! ! !compressible ! + --------+ --+ --+ Electronically signed by: Kyaw Delong MD [id number] Final Dictated: 04/07/2017 2:14 pm Dictating Physician: KYAW DELONG Signed Date and Time: 04/07/2017 2:13 pm Signed by: KYAW DELONG [facility] Vital Signs Date Time Vital Sign Value Performing Clinician Rojelio valenzuela 09-20-2024 15:54-0400 Body height 160.02 cm Leigha Wynn [employer] Work Phone: [facility] 09-20-2024 15:52-0400 Body mass index (BMI) [Ratio] 39.8 kg/m2 Leigha Wynn [employer] Work Phone: [facility] 09-20-2024 15:52-0400 Body weight 102.05 kg Leigha Wynn [employer] Work Phone: [facility] 09-20-2024 15:52-0400 Diastolic blood pressure 58 mm[Hg] Leigha Wynn [employer] Work Phone: [facility] 09-20-2024 15:52-0400 Systolic blood pressure 101 mm[Hg] Leigha Wynn [employer] Work Phone: [facility] 06-04-2024 13:39-0400 Body temperature 98.4 [degF] Leigha Wynn [employer] Work Phone: [facility] 06-04-2024 13:39-0400 Diastolic blood pressure 67 mm[Hg] Leigha Wynn [employer] Work Phone: [facility] 06-04-2024 13:39-0400 Heart rate 50 /min Leigha Wynn [employer] Work Phone: [facility] 06-04-2024 13:39-0400 Respiratory rate 16 /min Leigha Wynn [employer] Work Phone: [facility] 06-04-2024 13:39-0400 SaO2% (BldA) [Mass fraction] 97 % Leigha Wynn [employer] Work Phone: [facility] 06-04-2024 13:39-0400 Systolic blood pressure 106 mm[Hg] Leigha Wynn [employer] Work Phone: [facility] 06-04-2024 06:38-0400 Body height 160.02 cm Leigha Wynn [employer] Work Phone: [facility] 06-04-2024 06:38-0400 Body mass index (BMI) [Ratio] 42.5 kg/m2 Leigha Wynn [employer] Work Phone: [facility] 06-04-2024 06:38-0400 Body weight 109 kg Leigha Wynn [employer] Work Phone: [facility] 05-01-2024 08:20-0500 Body height 160.02 cm Leigha Wynn [employer] Work Phone: [facility] 05-01-2024 08:20-0500 Body mass index (BMI) [Ratio] 44.2 kg/m2 Leigha Wynn [employer] Work Phone: [facility] 05-01-2024 08:20-0500 Body weight 113.39 kg Leigha Wynn [employer] Work Phone: [facility] 05-01-2024 08:20-0500 Diastolic blood pressure 74 mm[Hg] Leigha Wynn [employer] Work Phone: [facility] 05-01-2024 08:20-0500 Heart rate 69 /min Leigha Wynn [employer] Work Phone: [facility] 05-01-2024 08:20-0500 Respiratory rate 17 /min Leigha Wynn [employer] Work Phone: [facility] 05-01-2024 08:20-0500 SaO2% (BldA) [Mass fraction] 100 % Leigha Wynn [employer] Work Phone: [facility] 05-01-2024 08:20-0500 Systolic blood pressure 109 mm[Hg] Leigha Wynn [employer] Work Phone: [facility] 03-19-2024 08:43-0500 Body mass index (BMI) [Ratio] 44.6 kg/m2 Leigha Wynn [employer] Work Phone: [facility] 03-19-2024 08:43-0500 Body weight 114.36 kg Leigha Wynn [employer] Work Phone: [facility] 03-19-2024 08:43-0500 Diastolic blood pressure 71 mm[Hg] Leigha Wynn [employer] Work Phone: [facility] 03-19-2024 08:43-0500 Heart rate 62 /min Leigha Wynn [employer] Work Phone: [facility] 03-19-2024 08:43-0500 SaO2% (BldA) [Mass fraction] 98 % Leigha Wynn [employer] Work Phone: [facility] 03-19-2024 08:43-0500 Systolic blood pressure 109 mm[Hg] Leigha Wynn [employer] Work Phone: [facility] Encounters Encounter Date Encounter Type Care Provider Facility Start: 11-19-2024 ambulatory So Jamison Facility:[facility] Start: 09-20-2024 End: 09-20-[address] So Jamison DO -[facility] Work Phone: Start: 09-20-2024 End: 09-20-2024 ambulatory Leigha Wynn NP-C Work Phone: -[facility] Start: 09-20-2024 End: 09-20-2024 ambulatory Leigha Wynn NP-C Work Phone: -[facility] Start: 09-20-2024 End: 09-20-[address] So Jamison DO -[facility] Work Phone: Start: 09-20-2024 End: 09-20-2024 ambulatory So Jamison Facility:[facility] Start: 09-03-2024 End: 09-03-2024 ambulatory Leigha Wynn NP-C Work Phone: -Laboratory Start: 09-03-2024 End: 09-03-2024 Patient encounter procedure Leigha Wynn [employer] -Laboratory Work Phone: Start: 09-03-2024 End: 09-03-2024 ambulatory Leigha Wynn Facility:[facility] Start: 07-15-2024 Non-patient / Non-visit [facility] Purnima HAUSER [facility] Start: 07-15-2024 End: 07-15-2024 ambulatory Leigha Fontenotsey [employer] Work Phone: [facility] Work Phone: Start: 07-15-2024 End: 07-15-2024 Patient encounter procedure Leigha Fontenotsey [employer] -Cardiovascular Services Work Phone: Start: 07-15-2024 End: 07-15-2024 ambulatory Leigha Fontenotsey Facility:[facility] Start: 06-11-2024 End: 06-11-[address] Errol Adams MD -[facility] Work Phone: Start: 06-11-2024 End: 06-11-2024 ambulatory Leigha Fontenotsey [employer] Work Phone: [facility] Work Phone: Start: 06-11-2024 End: 06-11-2024 ambulatory Errol Adams Facility:[facility] Start: 06-04-2024 ambulatory Errol Adams Facility: [facility] Start: 06-04-2024 Non-patient / Non-visit [facility] Larissa [facility] Start: 06-04-2024 End: 06-04-2024 Admission to same day surgery center Dr. Errol Adams MD -[facility] Start: 06-04-2024 End: 06-04-2024 ambulatory Leigha Wynn [employer] Work Phone: [facility] Work Phone: Start: 05-24-2024 Encounter for other preprocedural examination Leighakobi Wynn [facility] Start: 05-23-2024 End: 05-23-2024 ambulatory Errol Adams Facility:[facility] Start: 05-23-2024 End: 05-23-2024 Non-patient / Non-visit Dr. Maikol Sanchez MD -[facility] Work Phone: Start: 05-17-2024 End: 05-17-2024 ambulatory Leigha Wynn [employer] Work Phone: [facility] Work Phone: Start: 05-17-2024 End: 05-17-2024 Patient encounter procedure Leigha Wynn [employer] -Laboratory Work Phone: Start: 05-17-2024 End: 05-17-2024 ambulatory Leigha Fontenotsey Facility:[facility] Start: 05-01-2024 End: 05-01-[address] Errol Adams MD -[facility] Work Phone: Start: 05-01-2024 End: 05-01-2024 ambulatory Errol Adams Facility:[facility] Start: 04-18-2024 End: 04-18-[address] Salo Boles MD -Outpatient Bone Densitometry Work Phone: Start: 04-18-2024 End: 04-18-2024 ambulatory [facility] Facility:[facility] Start: 04-09-2024 End: 04-09-[address] Salo Boles MD -Nuclear Medicine, [facility] Work Phone: Start: 04-09-2024 End: 04-09-2024 ambulatory [facility] Facility:[facility] Start: 03-28-2024 End: 03-28-[address] Salo Boles MD -Ultrasound, [facility] Work Phone: Start: 03-28-2024 End: 03-28-2024 ambulatory Salo Ramana Facility:[facility] Start: 03-19-2024 End: 03-19-[address] Salo Boles MD -Laboratory Work Phone: Start: 03-19-2024 End: 03-19-[address] Salo Boles MD -[facility] Work Phone: Start: 03-19-2024 End: 03-19-2024 ambulatory Leighakobi Wynn Facility:[facility] Start: 03-19-2024 End: 03-19-2024 ambulatory Salo Boles Facility:[facility] Start: 01-08-2024 End: 01-08-2024 ambulatory So Jamison Facility:[facility] Start: 12-29-2023 End: 12-29-2023 ambulatory So Jamison Facility:[facility] Start: 12-08-2023 ambulatory Leigha Wynn Facility: [facility] Start: 12-08-2023 End: 12-08-2023 ambulatory Marybeth Gibson [employer] Facility:[facility] Start: 12-04-2023 ambulatory Leigha Fontenotsey Facility: [facility] Start: 12-04-2023 End: 12-04-2023 ambulatory Marybeth Gibson [employer] Facility:[facility] Start: 11-28-2023 End: 11-28-2023 ambulatory Marybeth Gibson [employer] Facility:[facility] Start: 11-28-2023 End: 11-28-2023 ambulatory Marybeth Radha [employer] Facility:[facility] Start: 10-26-2023 ambulatory Leigha Kingsley Facility: [facility] Start: 09-12-2023 End: 09-12-2023 [facility] Start: 09-12-2023 End: 09-12-2023 [facility] encounter [facility] Start: 10-11-2018 End: 10-11-2018 Subsequent hospital visit by physician Eron Daigle Work Phone: [facility] Comment on above: Cough Start: 04-07-2017 Evaluation and management of inpatient PROVIDER [facility] Start: 04-06-2017 [facility] Procedures Date Procedure Procedure Detail Performing Clinician Start: 09-03-2024 Vitamin D, 25-hydrox y measurement Leigha Wynn [employer] Work Phone: Comment on above: Vitamin D StatusDefi ciency: <20 ng/mL (50nmol/L)Insufficiency: 20-30 ng/mL (50-75 nmol/L)Sufficiency: 30-100 ng/mL (75-250 nmol/L)Toxicity: >100 ng/mL (>250 nmol/L) Start: 06-11-2024 Vitamin D, 25-hydrox y measurement Leigha Wynn [employer] Work Phone: Comment on above: Vitamin D StatusDefi ciency: <20 ng/mL (50nmol/L)Insufficiency: 20-30 ng/mL (50-75 nmol/L)Sufficiency: 30-100 ng/mL (75-250 nmol/L)Toxicity: >100 ng/mL (>250 nmol/L) Start: 06-11-2024 Parathyroid hormone measurement Leigha Wynn [employer] Work Phone: Start: 06-04-2024 Parathyroid hormone measurement Leigha Wynn [employer] Work Phone: Start: 06-04-2024 Parathyroidectomy Ric Wynn [employer] Work Phone: Start: 05-17-2024 Hepatitis C antibody measurement Leigha Wynn [employer] Work Phone: Comment on above: Reactive: Presumptiv e evidence of antibodies to HCV. Follow CDC recommendations for supplemental testing.Non-Reactive: Antibodies to HCV were not detected; does not exclude the possibility of exposure to HCVReactive Results are presumptive evidence of antibodies to HCV. Follow CDC recommendations for supplemental testing.Order confirmation testing: HCV Quant by PCR testing - HCVPCR #[id number] Non Reactive: < 0.8 Equivocal: >/= 0.8 to < 1.0 Reactive: >/= 1.0The CDC requires that a reactive/equivocal HCV antibody result be sent out for confirmation. HCV Quant by PCR testing. Start: 05-17-2024 Parathyroid hormone measurement Leigha Wynn [employer] Work Phone: Start: 05-17-2024 Vitamin D, 25-hydrox y measurement Leigha Wynn [employer] Work Phone: Comment on above: Vitamin D StatusDefi ciency: <20 ng/mL (50nmol/L)Insufficiency: 20-30 ng/mL (50-75 nmol/L)Sufficiency: 30-100 ng/mL (75-250 nmol/L)Toxicity: >100 ng/mL (>250 nmol/L) Start: 04-18-2024 Dual energy X-ray absorptiometry Leigha Wynn [employer] Work Phone: Start: 04-09-2024 Radioisotope scan of parathyroid Leigha Wynn [employer] Work Phone: Start: 03-28-2024 US scan of thyroid Jerel Wynn [employer] Work Phone: Start: 03-19-2024 Parathyroid hormone measurement Leigha Wynn [employer] Work Phone: Start: 03-19-2024 Vitamin D, 25-hydrox y measurement Leigha Wynn [employer] Work Phone: Comment on above: Vitamin D 25(OH) Sta tus Range Deficiency <20 ng/mL (50nmol/L) Insufficiency 20 - 30 ng/mL (50 - 75 nmol/L) Sufficiency 30 - 100 ng/mL (75 - 250 nmol/L) Toxicity >100 ng/mL (>250 nmol/L) Start: 10-11-2018 Radiologic exam chest 2 views Eron Armendarizstepan Work Phone: Plan of Treatment Date Care Activity Detail Author Start: 06-04-2024 Anes esoph thyrd larynx trach & lymph neck 1yr ANESTH NECK ORGAN 1YR/> [facility] Start: 06-04-2024 Parathyroidectomy/explor ation parathyroids EXPLORE PARATHYROID GLANDS [facility] Start: 06-04-2024 End: 06-04-2024 Parathyroid hormone measurement [facility] Start: 06-04-2024 Patient discharge [facility] Start: 10-02-2021 Colon cancer screen colonoscopy Colon cancer screen colonoscopy [place], [place] Start: 12-12-2018 End: 12-12-2018 Office Visit 12/12/2018 Office Visit Dermatology Faustina Pat, [facility] - MEGHANN [address] [place] [phone] [facility] Start: 10-28-2018 Influenza vaccination Flu vaccine (#1) [place], [place] Start: 02-01-2018 Breast cancer screen Breast cancer screen [place] Start: 2014 Shingles Vaccine (1 of 2) Shingles Vaccine (1 of 2) [place] Start: 2004 Diabetes screen Diabetes screen [place] Start: 2004 Lipid screen Lipid screen [place] Start: 02-28-1997 DTaP/Tdap/Td vaccine (1 - Tdap) DTaP/Tdap/Td vaccine (1 - Tdap) [place] Start: 1985 Cervical cancer screen Cervical cancer screen [place], [place] Start: 11-13-1979 HIV screen HIV screen [place], [place] Start: 1964 Hepatitis C screen Hepatitis C screen [place], [place] Patient referral [facility] Work Phone: [facility] Immunizations Immunization Date Immunization Notes Care Provider Fa cility 02-27-1997 tetanus and diphther ia toxoids, not adsorbed, for adult use Leigha Richmond RN [facility] Payers Date Payer Category Payer Unknown 2023 Unknown [id number] 2023 Unknown [id number] 2023 Self-pay 2014 Unknown [employer] [address] xxxxxxxxxxxx 2014-Present [phone] [address] [place] [address] xxxxxxxxxxxx [id number] 2004 Unknown [id number] Unknown [id number] Unknown [id number] Unknown [id number] .[id number] Unknown [id number] 2.16.840.1.444108.3.579.2.462 Unknown [id number] 2.840.1.565008.3.579.2.462 Unknown [id number] 2.16.840.1.462302.3.579.2.462 Unknown [id number] 2.16.840.1.326766.3.579.2.462 Unknown [id number] 2.840.1.142075.3.579.2.462 Unknown [id number] 2.840.1.352942.3.579.2.462 Unknown [id number] 2.840.1.848900.3.579.2.462 Unknown [id number] 2.840.1.578698.3.579.2.462 Unknown [id number] 2.840.1.226417.3.579.2.462 Unknown [id number] 2.840.1.011155.3.579.2.462 Unknown [id number] 2.840.1.882089.3.579.2.462 Unknown [id number] 2.840.1.964791.3.579.2.462 Unknown [id number] 2.840.1.095227.3.579.2.462 Unknown [id number] 2.840.1.758924.3.579.2.462 Unknown [id number] 2.840.1.196098.3.579.2.462 Unknown [id number] 2.840.1.860209.3.579.2.462 Unknown [id number] 2.840.1.154818.3.579.2.462 Unknown [id number] 2.840.1.210202.3.579.2.462 Unknown [id number] 2.840.1.726977.3.579.2.462 Unknown [id number] 2.16.840.1.579228.3.579.2.462 Unknown [id number] 2.16.840.1.171337.3.579.2.462 Unknown [id number] 2.16.840.1.056558.3.579.2.462 Unknown [id number] 2.16.840.1.939202.3.579.2.462 Unknown [id number] 2.16.840.1.276829.3.579.2.462 Social History Date Type Detail Facility Start: 10-10-2018 End: 05-21-2024 Tobacco smoking status NHIS Never smoker [facility] Start: 10-10-2018 Alcohol intake Yes [facility] Start: 06-25-2018 History SDOH Alcohol Frequency 2 [place] Start: 06-25-2018 History SDOH Alcohol Std Drinks 1 [place] Start: 06-25-2018 History SDOH Social Connections Zoroastrian 3 [place] Start: 06-25-2018 History SDOH Social Connections Living [address] [place] [address] Start: 06-25-2018 History SDOH Financial 4 [place], [place] Start: 1965 Sex Assigned At Not on file [place], [place] Start: 02-27-2020 Alcoholic beverage intake Current drinker of alcohol (finding) [facility] Start: 02-27-2020 Alcoholic beverage intake [facility] Start: 03-30-2019 Non-smoker Non-smoker [facility] Start: 05-24-2024 End: 06-13-2024 Sex Female (finding) [facility] Start: 1965 Sex Assigned At Female W [facility] NEGATED: Highlighted row Not [facility] Medical Equipment Procedure Code Equipment Code Equipment Origin al Text Equipment Identifier Dates Parathyroidectomy Plant polysacc haride haemostatic agent, bioabsorbable [id number] FDA Start: 06-04-2024 Parathyroidectomy Ligation clip, metallic ()[id number] FDA Start: 06-04-2024 Goals Date Patient Goal Desired Activity /State Mental Status Date Assessment Result Facility 06-04-2024 Cognitive function Level Of Cons ciousness Awake;Drowsy [facility] Work Phone: 06-04-2024 Cognitive function Voice/Name [facility] Work Phone: Clinical Notes 09-12-2023 to 06-11-2024 Note Date & Type Note Facility 06-11-2024 Evaluation note Diagnosis Onset Date Resolution S/P parathyroidectomy acute May 8:48am [facility] Work Phone: 1(514) 361-536604-15-2025 Evaluation note* Diagnosis Onset Date Resolution Status Admit Date S/P parathyroidectomy acute May 8:48am Endometrial hyperplasia with out atypia, simple acute September 20, 2024 3:48pm Enlarged uterus acute August 3:48pm S/P parathyroidectomy acute Aug 3:48pm Obesity chronic September 20 3:48pm [facility] Work Phone: 1(100) 416-243104-08-2025 Consult note Author Victorino Elias [facility] Note Date/Time June 04, 2024 11:3 5am [facility] Medical Records Department [address] [place] [address] Anesthesia Postop Eval I 06/04/24 1134 MR#: [id number] Acct: [id number] Name: SILKE LOPEZ Rep #:[id number] : 1965 58 From: Victorino ZAVALA PCP: EDGAR Long Status:REG SD C Y Race: C Location: [place] [address] Anesthesia: Postop Eval I Current Vital Signs Temperature: 96.8 F Pulse Rate: 78 Blood Pressure: 126/74 Respiratory Rate: 14 Pulse Ox: 98 Oxygen Delivery Method: Room Air Assessment Airway patent: Yes Spontaneous unlabored respirations: Yes Mental status: Awake and Calm nausea: No Vomiting: No Anesthesia Complication: No Fluid Hydration Crystalloid volume administer (ml): 1,500 Total IV fluid infused: 1,500 Progress Note Anesthesia document: Postop Eval 1 completed: Yes 04/08/25 1135 <Electronically signed by Victorino Elias ROTARY SWAGING MACHINE OPERATOR> Date _ Victorino Elias [employer]OTARY SWAGING MACHINE OPERATOR Cosigner Signature: Date CC: ~ Signed [facility] Work Phone: 1(846) 231-126504-08-2025 Consult note [facility] Medical Records Department [address] [address] Anesthesia Postop Eval I 06/04/241133 MR#: [id number] Acct: [id number] Name: SILKE LOPEZ Rep #:[id number] : 1965 58 From: Victorino ZAVALA PCP: EDGAR Long Status:REG SD C Y Race: C Location: [place] [address] Anesthesia: Postop Eval I Current Vital Signs Temperature: 96.8 F Pulse Rate: 78 Blood Pressure: 126/74 Respiratory Rate: 14 Pulse Ox: 98 Oxygen Delivery Method: Room Air Assessment Airway patent: Yes Spontaneous unlabored respirations: Yes Mental status: Awake and Calm nausea: No Vomiting: No Anesthesia Complication: No Fluid Hydration Crystalloid volume administer (ml): 1,500 Total IV fluid infused: 1,500 Progress Note Anesthesia document: Postop Eval 1 completed: Yes 06/04/241134 ROTARY SWAGING MACHINE OPERATOR> Date _ Victorino Elias ROTARY SWAGING MACHINE OPERATOR Cosigner Signature: Date CC: ~ Signed [facility]04-08-2025 History and physical note Author Errol Adams [facility] Note Date/Time June 04, 2024 7:17 am [facility] Medical Records Department [address] [place] [address] History & Physical Exam 06/04/24 0713 MR#: [id number] Acct: [id number] Name: SILKE LOPEZ Rep #:[id number] : 1965 58 From: Errol Turner PCP: Leigha Wynn NP-C Status:REG SD C Location: [place] [address] History and Physical Date of Admission: 06/04/24 Date of Service: 05/01/24 MR#: [id number] Acct: [id number] Name: SILKE LOPEZ Rep #: [id number] : 1965 Provider: Dr. Errol Adams MD Age/Sex: 58/F Location: [facility] Status: Signed Intake Vital Signs 03/19/2507:43 05/02/2507:20 Height 5 ft 3 in 5 ft 3 in Weight: 250 lb BMI 44.2 BP 109/74 Blood Pressure Location Lt brachial Position Sitting Respiration 17 Pulse 69 Pulse Source Monitor Pulse Oximetry (%) 100 Oxygen Delivery Method room air Intake Visit Reasons: parathyroid adenoma Chief Complaint: parathyroid adenoma Is patient in pain?: No Allergies aspirin (ASA) Allergy (Intermediate, Verified 05/01/24 08:21) SwellingIodinated Contrast Media (contrast dye - iodinated) Allergy (Mild, Verified 05/01/24 08:21) Hiveslevofloxacin (From Levaquin) Allergy (Verified 05/01/24 08:21) Othernaproxen Allergy (Verified 05/01/24 08:21) OtherPenicillins Allergy (Verified 05/01/24 08:21) Other Medications ?Medication ?Instructions ?Recorded ?Confirmed ?Type triamcinolone acetonide 0.5 % 1 applic topical .COMPLEX #45 grams 01/2805/01/24 Rx topical ointment cholecalciferol (vitamin D3) 25 50,000 mcg PO QWEEK 03/19/24 05/01/24 Hi story mcg (1,000 unit) capsule PFSH Medical History Thyroid eye disease Primary hyperparathyroidism Hyperparathyroidism Screening for osteoporosis Surgical History S/P D&C (status post dilation and curettage) S/P appendectomy Family History Father Cancer ProstateSister Cancer cholangiocarcinoma- Bile ductGrandfather Cancer Prostate Social History household members: spouse current occupational status: employed current occupation: [employer] Smoking Status: Never smoker alcohol intake: never substance use type: does not use seatbelt use: always do you feel safe at home: Yes additional social history: - [employer]- Retired HPI HPI HPI: Patient is a 58-year-old female who presents for consultation related to diagnosis of primary hyperparathyroidism. They are referred from Dr. Salo Boles of endocrinology and PCP Ms. Leigha Wynn NP. Patient has a history of osteo pi?a given a T- score of -1.6 on DEXA imaging obtained 04/18/2024. Patient has no history of pathologic fractures. Patient has no history of kidney stones. Patient has no history of frequent dental caries or chipped teeth. Patient doeshave a history of brittle fingernails. Patient has no history of GERD. Patienthas no history of hypertension. Additional symptoms include: Pertinent positives: Fatigue, constipation, memory difficulties/pertinent negatives: No depression, no concentration difficulty Patient has no history of prior radiation exposure. Patient has a family history of other endocrinopathies and she mentions that a niece required thyroidremoval Patient [does/does not] have a diet high in dairy. Patient's current labs are calcium: 11.9 mg/dL (03/19/2024) range of 9.9-11.9 since 2019, Vitamin D: 32.7 ng/mL (03/19/2024, Ionized calcium: [Value]mg/dL [date], PTH: 204.1 pg/mL (03/19/2024)?singular value, Phosphorus: [Value] [date] Current medications include: Vitamin D supplementation with 2000 international units daily (previously 50,000 international units weekly). Imaging has been done thyroid ultrasound 03/28/2024 showing no thyroid nodules mild right thyroid lobe measuring 4.4 x 1.7 x 2.0 cm left thyroid lobe measuring 3.6 x 1.4 x 1.3 cm. No mention was made of parathyroid adenoma candidate. Patient then went on to have sestamibi imaging 04/09/2024 which showed probable left inferior parathyroid adenoma. Patient [has/has not] had renal imaging [on date] [which showed: Imaging findings]. ROS General General: Yes weight change and fatigue; No appetite, colon cancer, breast cancer or weakness Additional Details: Intentional wt loss. Using wt watchers HEENT HEENT: Yes difficulty swallowing; No eye injury, eye surgery, swollen glands or hoarseness Endo Endocrine: Yes thyroid disease; No diabetes mellitus, thyroid cancer, Hair loss, heat intolerance or cold intolerance Skin Skin: No rash or changing moles Musc Musculoskeletal: No back problems, arthritis, rheumatoid arthritis, gout or joint pain Cardio Cardiovascular: No murmur, pacemaker, heart disease, atrial fibrillation, high blood pressure, heart attack, heart stent, palpitations, shortness of breat withexertion or chest pain Psych Psychiatric: No depression, anxiety or hearing voices Resp Respiratory: No shortness of breath, No sleep apnea, Yes cough, No COPD, No asthma, No emphysema and No wheezing Gastro Gastrointestinal: Yes abdominal pain (due to uterus), No nausea or vomiting, No diarrhea, Yes constipation, No blood in stool, No acid reflux, No hemorrhoids, No ulcers, No gallbladder problem and No black,tarry stools [place] Hematologic: No blood thinners, No blood disorders, No bleeding, No anemia and No blood clots Neuro Neurologic: No system reviewed and no additional complaints, except as documented, No as per HPI, No abnormal gait, No abnormal hearing, No abnormal movements, No abnormal speech, No behavioral changes, No burning sensations, No confusion, No convulsions, No disequilibrium, No dizziness, No localized weakness, No frequent falls, No headache(s), No lack of coordination, No loss ofvision, No memory loss, No numbness, No other visual disturbances, No radicular pain, No restless legs, No sensory deficit, No syncope, No tingling, No tremor(s), No weakness and No other Exam Const General: cooperative Orientation: alert, awake and oriented x3 Neck Thyroid: thyroid normal Other: No thyroid nodularity appreciated. Patient's neck is nontender. She has good range of motion. No cervical adenopathy appreciated Ultrasound exam was performed the patient's neck and identify of left inferior hypoechoic structure that lies just inferior to the patient's left inferior poleof her thyroid and measures 1.4 x 1.0 x 0.8 cm. There is diffuse vascularity with an apparent polar vessel feeding the structure but it is otherwise solid-appearing in composition Assessment and Plan Assessment and Plan (1) Primary hyperparathyroidism: Status: Acute Comment: Patient is a 58-year-old female who was initially diagnosed with vitamin D deficiency and hypercalcemia but vitamin D has been supplemented and patient hasbecome persistently hypercalcemic with elevated parathyroid hormone. This is consistent with diagnosis of primary hyperparathyroidism. Further, patient doespresent with surgical indications given recent DEXA imaging that shows bone demineralization with presence of osteopenia and her calcium now nearly 12 mg/dL. Additionally, patient is motivated to undergo surgery because she has been told she is unable to proceed with a needed hysterectomy on the account of her high calcium. I held a lengthy conversation with patient and her toconfirm their understanding of what hyperparathyroidism represents as a diagnostic entity and why surgery is undertaken (goal in this case to minimize any further bone demineralization and improve patient's fracture risk as well fernando calcium). Hand drawings were made to illustrate the relevant points. All questions were answered from patient and her and they expressed understanding of the information conveyed. Lastly, I performed a bedside ultrasound of patient's neck and was able to identify a candidate parathyroid lesion in the left inferior position. This is concordant with patient's prior sestamibi imaging and a good indicator that patient may just have a single adenoma as the cause for her primary hyperparathyroidism. I offered a improve potential follow-up visit, however, given patient's motivations to improve the bone demineralization and also move forward with her hysterectomy she is interested in scheduling surgery today. The procedure for parathyroidectomy including use of intraoperative PTH monitoring was described in detail. Plan: Parathyroidectomy with intraoperative nerve and PTH monitoring as well as frozensection. Procedure to be plan for with outpatient disposition. Interval: Patient seen and reevaluated for surgery. She remains in stable stateof health but reports she did observe her vitamin D level going down again to the 20s despite daily supplementation with 2000IU. Contacted Endo and advised to continue present dose. Procedure details and postprocedure expectations reviewed. All questions answered. Consents confirmed. Preop PTH noted. Proceed to OR for parathyroidectomy w intraop PTH monitoring as described above. 06/04/24 0717 <Electronically signed by Errol Adams MD> Cosigner Signature (if applicable): CC: EDGAR yWnn; Dr. Errol Adams MD~ Signed [facility] Work Phone: 1(762) 204-303804-08-2025 Consult note Author Amado Alvarez [facility] Note Date/Time June 04, 2024 7:03 am [facility] Medical Records Department [address] [place] [address] Pre-Anesthesia Evaluation 06/04/24 0622 MR#: [id number] Acct: [id number] Name: SILKE LOPEZ Rep #:[id number] : 1965 58 From: Amado Alvarez MD PCP: EDGAR Long Status:REG SD C Y Race: C Location: [place] [address] ASA Classification* ASA Classification ASA Classification: 3 Assessment & Plan Anesthesia* Anesthesia Assessment Anesthesia Assessment: Discussed sedation and/or anesthesia options, risks, benefits, and alternatives with patient/parents/legal guardian/POA. Questions invited. The patient/parents/legal guardian/POA seems to understand and agrees to proceedwith anesthesia plan. Reviewed the physical assessment, medical history, allergy history and patient home medications list prior to surgery/procedure/anesthetic and documented any changes. Performed airway and anesthesia risk assessments. Anesthesia Type Anesthesia Type: General Anesthesia Focused Assessment* Temperature: 97.9 F Pulse Rate: 50 Blood Pressure: 110/48 Respiratory Rate: 18 Pulse Ox: 98 Oxygen Delivery Method: Room Air Airway Assessment Mouth opens: >3 cm Mallampati Score: III Teeth Condition: Caps/Crowns (Left lower Molar has a cap. It is tight.) Neck Range of motion (ROM): Full ROM Focused Labs Anesthesia Preop lab: CBC WBC 6.3 K/mm3 (4.4-11.0) 05/17/24 12:48 05/17/24 RBC 4.78 M/mm3 (4.2-5.4) 05/17/24 12:48 05/17/24 Hgb 15.0 g/dL (12.0-15.0) 05/17/24 12:48 05/17/24 Hct 44.7 % (37-47) 05/17/24 12:48 05/17/24 Plt Count 276 K/mm3 (150-450) 05/17/24 12:48 05/17/24 CHEMISTRY Potassium 4.6 mmol/L (3.3-5.1) 05/17/24 12:48 05/17/24 Sodium 138 mmol/L (133-145) 05/17/24 12:48 05/17/24 BUN 24 mg/dL (4-19) H 05/17/24 12:48 05/17/24 Creatinine 0.89 mg/dL (0.70-1.20) 05/17/24 12:48 05/17/24 Glucose 91 mg/dL (70-99) 05/17/24 12:48 05/17/24 TSH 2.900 uIU/mL (0.358-3.740) 01/08/24 09:33 12/28 03/22 COAG Pre-Assessment Diagnosis/Proposed Procedure Planned Operative Procedure(s): Parathyroidectomy w/IONM, PTH, and frozen section Anesthesia History Anesthesia History - medical lab scientist: Anesthesia History - medical lab scientist Hx Hospitalization No 05/21/24 11:11 Any Problems With Anesthesia No 05/21/24 11:11 Cholinesterase deficiency No 05/21/24 11:11 You/Your Family Experience No 05/21/24 11:11 fever (hyperthermia) with Relationship Recent Exposure to Contagious Disease Does patient have nerve No 05/21/24 11:11 stimulator Patient instructed to have device shut off --Does patient have Pacemaker or ICD? When Was Last Pacemaker Check QUESTION #4 FULL TEXT: You/Your Family Experience fever (hyperthermia) with Anesthesia Last Oral Intake Last Oral intake: Last Oral Intake NPO since Meds taken in AM with sips of water? Meds patient instructed to take am of surgery Any additional information?: Yes NPO since: 00:00 Meds taken in AM with sips of water?: No PONV PONV - medical lab scientist: PONV - medical lab scientist Female Yes 05/21/24 11:11 HX of Motion Sickness No 05/21/24 11:11 HX of N/V After Surgery No 05/21/24 11:11 Non-Smoker Yes 05/21/24 11:11 Duration of Surgery greater No 05/21/24 11:11 than 60 minutes Number of Risk Factors 2 05/21/24 11:11 PONV Score Moderate Risk 05/21/24 11:11 Height & Weight Height & Weight: Anesthesia: Height & Weight Height 5 ft 3 in 05/01/24 08:20 Respiratory Assessment Respiratory Assessment - medical lab scientist: Respiratory Tract Infection Hx - medical lab scientist Hx Respiratory Tract Infection No 05/21/24 11:11 STOP Sleep Apnea STOP Sleep Apnea - medical lab scientist: STOP Sleep Apnea - medical lab scientist Hx Hypertension No 05/21/24 11:11 Hx Sleep Apnea No 05/21/24 11:11 CPAP BIPAP Do you snore loudly (louder No 05/21/24 11:11 than talking or can be heard Do you often feel tired/ No 05/21/24 11:11 fatigued/ sleepy during daytime? Has anyone observed you stop No 05/21/24 11:11 breathing during sleep? STOP Results Negative 05/21/24 11:11 QUESTION #5 FULL TEXT : Do you snore loudly (louder than talking or can be heard through closed doors)? Tobacco Use History Tobacco Use History - medical lab scientist: Tobacco Use History - medical lab scientist Tobacco Use Smoking Status Never smoker 05/21/24 11:11 Hx Tobacco Use No 05/21/24 11:11 Years Smoking Packs Smoked per Day Smoking Cessation Date was within the last 15 years Hx Smoking Cessation Date Hx Smoking Cessation Counseling Hematologic Medial History Hematologic Hx - medical lab scientist: Hematologic 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 engineer Hx of Blood Transfusion No 05/21/24 11:11 Hx of Transfusion in last 3 No 05/21/24 11:11 Months Date of Last Transfusion (if within last 3 months) Ever experience any problems No 05/21/24 11:11 with transfusion(s)? Specify any problems Hx of Preganancy in last 3 No 05/21/24 11:11 Months Nurse Filling Out Transfusion VCHRISTIN 05/21/24 11:11 & Questions: Date: 05/21/24 05/21/24 11:11 Time: 11:12 05/21/24 11:11 Patient unable to answer at this time (ie. confused, unrespo /Reproduction History /Reproductive History - medical lab scientist: /Reproductive Hx- medical lab scientist Hx Now No 05/21/24 11:11 Gestational Age (in weeks): EDC: Hx Hx Para Hx Section SAB No 05/21/24 11:11 Active Medications Active Medications: Current Medications Generic Name Dose Route Start Last Admin Trade Name Sergioq PRN Reason Stop Dose Admin Sodium Chloride 1,000 mls @ 15 mls/hr 06/04/24 06:20 IV .Q48H ALCIDES PFSH Medical History Wears glasses Arthritis Scoliosis Non-smoker History of edema Thyroid eye disease Primary hyperparathyroidism Hyperparathyroidism Screening for osteoporosis Home Medications ?Medication ?Instructions ?Recorded ?Last Taken ?Type triamcinolone acetonide 0.5 % 1 applic topical .COMPLE X #45 grams 02/22/19 Unknown Rx topical ointment cholecalciferol (vitamin D3) 50 50 mcg PO DAILY 06/03/24 History mcg (2,000 unit) capsule (Vitamin D3) Allergy/AdvReac Type Severity Reaction Status Date / Time aspirin (ASA) Allergy Intermediate Swelling Verified 06/04/24 06:38 Iodinated Contrast Media Allergy Mild Hives Verified 06/04/24 06:38 (contrast dye - iodinated) levofloxacin (From Levaquin) Allergy Other Verified 06/04/24 06:38 naproxen Allergy Other Verified 06/04/24 06:38 Penicillins Allergy Other Verified 06/04/24 06:38 Family History Father Cancer Prostate Sister Cancer cholangiocarcinoma- Bile duct Grandfather Cancer Prostate Surgical History S/P D&C (status post dilation and curettage) S/P appendectomy Social History household members: spouse current occupational status: employed current occupation: [employer] Smoking Status: Never smoker alcohol intake: never substance use type: does not use seatbelt use: always do you feel safe at home: Yes additional social history: - [employer]- Retired Review of Systems (Anesthesia) ROS Narrative System reviewed and no additional complaints, except as documented. 06/04/24 0703 <Electronically signed by Amado connolly MD> Date _ Amado Alvarez MD Cosigner Signature: Date CC: ~ Signed [facility] Work Phone: [phone]) 481-413004-08-2025 History and physical note [facility] Medical Records Department [address] [place] [address] History & Physical Exam 06/04/24712 MR#: [id number] Acct: [id number] Name: SILKE LOPEZ Rep #:[id number] : 1965 58 From: Errol Turner PCP: EDGAR Long Status:REG SD C Location: [place] [address] History and Physical Date of Admission: 06/04/24 Date of Service: 05/01/24 MR#: [id number] Acct: [id number] Name: SILKE LOPEZ Rep #: [id number] : 1965 Provider: Dr. Errol Adams MD Age/Sex: 58/F Location: [facility] Status: Signed Intake Vital Signs 03/19/2507:43 05/02/2507:20 Height 5 ft 3 in 5 ft 3 in Weight: 250 lb BMI 44.2 BP 109/74 Blood Pressure Location Lt brachial Position Sitting Respiration 17 Pulse 69 Pulse Source Monitor Pulse Oximetry (%) 100 Oxygen Delivery Method room air Intake Visit Reasons: parathyroid adenoma Chief Complaint: parathyroid adenoma Is patient in pain?: No Allergies aspirin (ASA) Allergy (Intermediate, Verified 05/01/24 08:21) SwellingIodinated Contrast Media (contrast dye - iodinated) Allergy (Mild, Verified 05/01/24 08:21) Hiveslevofloxacin (From Levaquin) Allergy (Verified 05/01/24 08:21) Othernaproxen Allergy (Verified 05/01/24 08:21) OtherPenicillins Allergy (Verified 05/01/24 08:21) Other Medications ?Medication ?Instructions ?Recorded ?Confirmed ?Type triamcinolone acetonide 0.5 % 1 applic topical .COMPLEX #45 grams 01/2805/01/24 Rx topical ointment cholecalciferol (vitamin D3) 25 50,000 mcg PO QWEEK 03/19/24 05/01/24 Hi story mcg (1,000 unit) capsule PFSH Medical History Thyroid eye disease Primary hyperparathyroidism Hyperparathyroidism Screening for osteoporosis Surgical History S/P D&C (status post dilation and curettage) S/P appendectomy Family History Father Cancer ProstateSister Cancer cholangiocarcinoma- Bile ductGrandfather Cancer Prostate Social History household members: spouse current occupational status: employed current occupation: [employer] Smoking Status: Never smoker alcohol intake: never substance use type: does not use seatbelt use: always do you feel safe at home: Yes additional social history: - [employer]- Retired HPI HPI HPI: Patient is a 58-year-old female who presents for consultation related to diagnosis of primary hyperparathyroidism. They are referred from Dr. Salo Boles of endocrinology and PCP Ms. Leigha Wynn NP.Patient has a history of osteo pi?a given a T-score of -1.6 on DEXA imaging obtained 04/18/2024. Patient has no history of pathologic fractures. Patient has no history of kidney stones. Patient has nohistory of frequent dental caries or chipped teeth. Patient doeshave a history of brittle fingernails. Patient has no history of GERD. Patienthas no history of hypertension. Additional symptoms include: Pertinent positives: Fatigue, constipation, memory difficulties/pertinent negatives: No depression, no concentration difficulty Patient has no history of prior radiation exposure. Patient has a family history of other endocrinopathies and she mentions that a niece required thyroidremoval Patient [does/does not] have a diet high in dairy. Patient's current labs are calcium: 11.9 mg/dL (03/19/2024) range of 9.9-11.9 since 2019, Vitamin D:32.7 ng/mL (03/19/2024, Ionized calcium: [Value]mg/dL [date], PTH: 204.1 pg/mL (03/19/2024)?singular value, Phosphorus: [Value] [date] Current medications include: Vitamin D supplementation with 2000 international units daily (previously 50,000 international units weekly). Imaging has been done thyroid ultrasound 03/28/2024 showing no thyroid nodules mild right thyroid lobe measuring 4.4 x 1.7 x 2.0 cm left thyroid lobe measuring 3.6 x 1.4 x 1.3 cm. No mention was made of parathyroid adenoma candidate. Patient then went on to have sestamibi imaging 04/09/2024 which showed probable left inferior parathyroid adenoma. Patient [has/has not] had renal imaging [on date] [which showed: Imaging findings]. ROS General General: Yes weight change and fatigue; No appetite, colon cancer, breast cancer or weakness Additional Details: Intentional wt loss. Using wt watchers HEENT HEENT: Yes difficulty swallowing; No eye injury, eye surgery, swollen glands or hoarseness Endo Endocrine: Yes thyroid disease; No diabetes mellitus, thyroid cancer, Hair loss, heat intolerance or cold intolerance Skin Skin: No rash or changing moles Musc Musculoskeletal: No back problems, arthritis, rheumatoid arthritis, gout or joint pain Cardio Cardiovascular: No murmur, pacemaker, heart disease, atrial fibrillation, high blood pressure, heart attack, heart stent, palpitations, shortness of breat withexertion or chest pain Psych Psychiatric: No depression, anxiety or hearing voices Resp Respiratory: No shortness of breath, No sleep apnea, Yes cough, No COPD, No asthma, No emphysema and No wheezing Gastro Gastrointestinal: Yes abdominal pain (due to uterus), No nausea or vomiting, No diarrhea, Yes constipation, No blood in stool, No acid reflux, No hemorrhoids, No ulcers, No gallbladder problem and [place],tarry stools [place] Hematologic: No blood thinners, No blood disorders, No bleeding, No anemia and No blood clots Neuro Neurologic: No system reviewed and no additional complaints, except as documented, No as per HPI, No abnormal gait, No abnormal hearing, No abnormal movements, No abnormal speech, No behavioral changes, No burning sensations, No confusion, No convulsions, No disequilibrium, No dizziness, No localized weakness, No frequent falls, No headache(s), No lack of coordination, No loss ofvision, No memoryloss, No numbness, No other visual disturbances, No radicular pain, No restless legs, No sensory deficit, No syncope, No tingling, No tremor(s), No weakness and No other Exam Const General: cooperative Orientation: alert, awake and oriented x3 Neck Thyroid: thyroid normal Other: No thyroid nodularity appreciated. Patient's neck is nontender. She has good range of motion. No cervical adenopathy appreciated Ultrasound exam was performed the patient's neck and identify of left inferior hypoechoic structurethat lies just inferior to the patient's left inferior poleof her thyroid and measures 1.4 x 1.0 x 0.8 cm. There is diffuse vascularity with an apparent polar vessel feeding the structure but it is otherwise solid- appearing in composition Assessment and Plan Assessment and Plan (1) Primary hyperparathyroidism: Status: Acute Comment: Patient is a 58-year-old female who was initially diagnosed with vitamin D deficiency and hypercalcemia but vitamin D has been supplemented and patient hasbecome persistently hypercalcemic with elevated parathyroid hormone. This is consistent with diagnosis of primary hyperparathyroidism. Further, patient doespresent with surgical indications given recent DEXA imaging that shows bone demineralization with presence of osteopenia and her calcium now nearly 12 mg/dL. Additionally, patient is motivated to undergo surgery because she has been told she is unable to proceed with a needed hysterectomy on the account of her high calcium. I held a lengthy conversation with patient and her toconfirm their understanding of what hyperparathyroidism represents as a diagnostic entity and why surgery is undertaken (goal in this case to minimize any further bone demineralization and improve patient's fracture risk as well fernando calcium). Hand drawings were made to illustrate the relevant points. All questions were answered from patient and her and they expressed understanding of the information conveyed. Lastly, I performed a bedside ultrasound of patient's neck and was able to identify a candidate parathyroid lesion in the left inferior position. This is concordant with patient's prior sestamibi imaging and a good indicator that patient may just have a single adenoma as the cause for her primary hyperparathyroidism. I offered a improve potential follow-up visit, however, given patient's motivations to improve the bone demineralization and also move forward with her hysterectomy she is interested in scheduling surgery today. The procedure for parathyroidectomy including use of intraoperative PTH monitoring was described in detail. Plan: Parathyroidectomy with intraoperative nerve and PTH monitoring as well as frozensection. Procedure to be plan for with outpatient disposition. Interval: Patient seen and reevaluated for surgery. She remains in stable stateof health but reports she did observe her vitamin D level going down again to the 20s despite daily supplementation [id number]. Contacted Endo and advised to continue present dose. Procedure details and postprocedure expectations reviewed. All questions answered. Consents confirmed. Preop PTH noted. Proceed to OR for parathyroidectomy w intraop PTH monitoring as described above. 06/04/24716 Cosigner Signature (if applicable): CC: EDGAR Wynn; Dr. Errol Adams MD~ Signed [facility]04-08-2025 [facility] Medical Records Department [address] [place] [id number] History Physical Exam 06/04/24712 MR#: [id number] Acct: [id number] Name: SILKE LOPEZ Rep #: [id number] : 1965 58 From: Errol Adams MD PCP: EDGAR Long Status:[facility] Location: [place] [address] History and Physical Date of Admission: 06/04/24 Date of Service: 05/01/24 MR#: [id number] Acct: [id number] Name: SILKE LOPEZE Rep #: [id number] : 1965 Provider: Dr. Errol Adams MD Age/Sex: 58/F Location: [facility] Status: Signed Intake Vital Signs 03/19/2507:43 05/02/2507:20 Height 5 ft 3 in 5 ft 3 in Weight: 250 lb BMI 44.2 BP 109/74 Blood Pressure Location Lt brachial Position Sitting Respiration 17 Pulse 69 Pulse Source Monitor Pulse Oximetry (%) 100 Oxygen Delivery Method room air Intake Visit Reasons: parathyroid adenoma Chief Complaint: parathyroid adenoma Is patient in pain?: No Allergies aspirin (ASA) Allergy (Intermediate, Verified 05/01/24 08:21) SwellingIodinated Contrast Media (contrast dye - iodinated) Allergy (Mild, Verified 05/01/24 08:21) Hiveslevofloxacin (From Levaquin) Allergy (Verified 05/01/24 08:21) Othernaproxen Allergy (Verified 05/01/24 08:21) OtherPenicillins Allergy (Verified 05/01/24 08:21) Other Medications ???Medication ???Instructions ???Recorded ???Confirmed ???Type triamcinolone acetonide 0.5 % 1 applic topical .COMPLEX #45 grams 02/22/1905/01 Rx topical ointment cholecalciferol (vitamin D3) 25 50,000 mcg PO QWEEK 03/19/24 05/01/24 History mcg (1,000 unit) capsule PFSH Medical History Thyroid eye disease Primary hyperparathyroidism Hyperparathyroidism Screening for osteoporosis Surgical History S/P D C (status post dilation and curettage) S/P appendectomy Family History Father Cancer ProstateSister Cancer cholangiocarcinoma- Bile ductGrandfather Cancer Prostate Social History household members: spouse current occupational status: employed current occupation: [employer] Smoking Status: Never smoker alcohol intake: never substance use type: does not use seatbelt use: always do you feel safe at home: Yes additional social history: - [employer]- Retired HPI HPI HPI: Patient is a 58-year-old female who presents for consultation related to diagnosis of primary hyperparathyroidism. They are referred from Dr. Salo Boles of endocrinology and PCP Ms. Leigha Wynn NP. Patient has a history of osteo pi???a given a T-score of -1.6 on DEXA imaging obtained 04/18/2024. Patient has no history of pathologic fractures. Patient has no history of kidney stones. Patient has no history of frequent dental caries or chipped teeth. Patient does have a history of brittle fingernails. Patient has no history of GERD. Patient has no history of hypertension. Additional symptoms include: Pertinent positives: Fatigue, constipation, memory difficulties/pertinent negatives: No depression, no concentration difficulty Patient has no history of prior radiation exposure. Patient has a family history of other endocrinopathies and she mentions that a niece required thyroid removal Patient [does/does not] have a diet high in dairy. Patient's current labs are calcium: 11.9 mg/dL (03/19/2024) range of 9.9-11.9 since 2019, Vitamin D: 32.7 ng/mL (03/19/2024, Ionized calcium: [Value]mg/dL [date], PTH: 204.1 pg/mL (03/19/2024)???singular value, Phosphorus: [Value] [date] Current medications include: Vitamin D supplementation with 2000 international units daily (previously 50,000 international units weekly). Imaging has been done thyroid ultrasound 03/28/2024 showing no thyroid nodules mild right thyroid lobe measuring 4.4 x 1.7 x 2.0 cm left thyroid lobe measuring 3.6 x 1.4 x 1.3 cm. No mention was made of parathyroid adenoma candidate. Patient then went on to have sestamibi imaging 04/09/2024 which showed probable left inferior parathyroid adenoma. Patient [has/has not] had renal imaging [on date] [which showed: Imaging findings]. ROS General General: Yes weight change and fatigue; No appetite, colon cancer, breast cancer or weakness Additional Details: Intentional wt loss. Using wt watchers HEENT HEENT: Yes difficulty swallowing; No eye injury, eye surgery, swollen glands or hoarseness Endo Endocrine: Yes thyroid disease; No diabetes mellitus, thyroid cancer, Hair loss, heat intol (more content not included)...[facility]04-08-2025 Consult note [facility] Medical Records Department [address] [place] [address] Pre-Anesthesia Evaluation 06/04/24 0622 MR#: [id number] Acct: [id number] Name: SILKE LOPEZ Rep #:[id number] : 1965 58 From: Amado Alvarez MD PCP: EDGAR Long Status:REG SD C Y Race: C Location: [place] [address] ASA Classification* ASA Classification ASA Classification: 3 Assessment & Plan Anesthesia* Anesthesia Assessment Anesthesia Assessment: Discussed sedation and/or anesthesia options, risks, benefits, and alternatives with patient/parents/legal guardian/POA. Questions invited. The patient/parents/legal guardian/POA seems to understand and agrees to proceedwith anesthesia plan. Reviewed the physical assessment, medical history, allergy history and patient home medications list prior to surgery/procedure/anesthetic and documented any changes. Performed airway and anesthesia risk assessments. Anesthesia Type Anesthesia Type: General Anesthesia Focused Assessment* Temperature: 97.9 F Pulse Rate: 50 Blood Pressure: 110/48 Respiratory Rate: 18 Pulse Ox: 98 Oxygen Delivery Method: Room Air Airway Assessment Mouth opens: >3 cm Mallampati Score: III Teeth Condition: Caps/Crowns (Left lower Molar has a cap. It is tight.) Neck Range of motion (ROM): Full ROM Focused Labs Anesthesia Preop lab: CBC WBC 6.3 K/mm3 (4.4-11.0) 05/17/24 12:48 05/17/24 RBC 4.78 M/mm3 (4.2-5.4) 05/17/24 12:48 05/17/24 Hgb 15.0 g/dL (12.0-15.0) 05/17/24 12:48 05/17/24 Hct 44.7 % (37-47) 05/17/24 12:48 05/17/24 Plt Count 276 K/mm3 (150-450) 05/17/24 12:48 05/17/24 CHEMISTRY Potassium 4.6 mmol/L (3.3-5.1) 05/17/24 12:48 05/17/24 Sodium 138 mmol/L (133-145) 05/17/24 12:48 05/17/24 BUN 24 mg/dL (4-19) H 05/17/24 12:48 05/17/24 Creatinine 0.89 mg/dL (0.70-1.20) 05/17/24 12:48 05/17/24 Glucose 91 mg/dL (70-99) 05/17/24 12:48 05/17/24 TSH 2.900 uIU/mL (0.358-3.740) 01/08/24 09:33 12/28 03/22 COAG Pre-Assessment Diagnosis/Proposed Procedure Planned Operative Procedure(s): Parathyroidectomy w/IONM, PTH, and frozen section Anesthesia History Anesthesia History - medical lab scientist: Anesthesia History - medical lab scientist Hx Hospitalization No 05/21/24 11:11 Any Problems With Anesthesia No 05/21/24 11:11 Cholinesterase deficiency No 05/21/24 11:11 You/Your Family Experience No 05/21/24 11:11 fever (hyperthermia) with Relationship Recent Exposure to Contagious Disease Does patient have nerve No 05/21/24 11:11 stimulator Patient instructed to have device shut off --Does patient have Pacemaker or ICD? When Was Last Pacemaker Check QUESTION #4 FULL TEXT: You/Your Family Experience fever (hyperthermia) with Anesthesia Last Oral Intake Last Oral intake: Last Oral Intake NPO since Meds taken in AM with sips of water? Meds patient instructed to take am of surgery Any additional information?: Yes NPO since: 00:00 Meds taken in AM with sips of water?: No PONV PONV - medical lab scientist: PONV - medical lab scientist Female Yes 05/21/24 11:11 HX of Motion Sickness No 05/21/24 11:11 HX of N/V After Surgery No 05/21/24 11:11 Non-Smoker Yes 05/21/24 11:11 Duration of Surgery greater No 05/21/24 11:11 than 60 minutes Number of Risk Factors 2 05/21/24 11:11 PONV Score Moderate Risk 05/21/24 11:11 Height & Weight Height & Weight: Anesthesia: Height & Weight Height 5 ft 3 in 05/01/24 08:20 Respiratory Assessment Respiratory Assessment - medical lab scientist: Respiratory Tract Infection Hx - medical lab scientist Hx Respiratory Tract Infection No 05/21/24 11:11 STOP Sleep Apnea STOP Sleep Apnea - medical lab scientist: STOP Sleep Apnea - medical lab scientist Hx Hypertension No 05/21/24 11:11 Hx Sleep Apnea No 05/21/24 11:11 CPAP BIPAP Do you snore loudly (louder No 05/21/24 11:11 than talking or can be heard Do you often feel tired/ No 05/21/24 11:11 fatigued/ sleepy during daytime? Has anyone observed you stop No 05/21/24 11:11 breathing during sleep? STOP Results Negative 05/21/24 11:11 QUESTION #5 FULL TEXT : Do you snore loudly (louder than talking or can be heard through closeddoors)? Tobacco Use History Tobacco Use History - medical lab scientist: Tobacco Use History - medical lab scientist Tobacco Use Smoking Status Never smoker 05/21/24 11:11 Hx Tobacco Use No 05/21/24 11:11 Years Smoking Packs Smoked per Day Smoking Cessation Date was within the last 15 years Hx Smoking Cessation Date Hx Smoking Cessation Counseling Hematologic Medial History Hematologic Hx - medical lab scientist: Hematologic 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 engineer Hx of Blood Transfusion No 05/21/24 11:11 Hx of Transfusion in last 3 No 05/21/24 11:11 Months Date of Last Transfusion (if within last 3 months) Ever experience any problems No 05/21/24 11:11 with transfusion(s)? Specify any problems Hx of Preganancy in last 3 No 05/21/24 11:11 Months Nurse Filling Out Transfusion VCHRISTIN 05/21/24 11:11 & Questions: Date: 05/21/24 05/21/24 11:11 Time: 11:12 05/21/24 11:11 Patient unable to answer at this time (ie. confused, unrespo /Reproduction History /Reproductive History - medical lab scientist: /Reproductive Hx- medical lab scientist Hx Now No 05/21/24 11:11 Gestational Age (in weeks): EDC: Hx Hx Para Hx Section SAB No 05/21/24 11:11 Active Medications Active Medications: Current Medications Generic Name Dose Route Start Last Admin Trade Name Freq PRN Reason Stop Dose Admin Sodium Chloride 1,000 mls @ 15 mls/hr 06/04/24 06:20 IV .Q48H ALCIDES PFSH Medical History Wears glasses Arthritis Scoliosis Non-smoker History of edema Thyroid eye disease Primary hyperparathyroidism Hyperparathyroidism Screening for osteoporosis Home Medications ?Medication ?Instructions ?Recorded ?Last Taken ?Type triamcinolone acetonide 0.5 % 1 applic topical .COMPLE X #45 grams 02/22/19 Unknown Rx topical ointment cholecalciferol (vitamin D3) 50 50 mcg PO DAILY 06/03/24 History mcg (2,000 unit) capsule (Vitamin D3) Allergy/AdvReac Type Severity Reaction Status Date / Time aspirin (ASA) Allergy Intermediate Swelling Verified 06/04/24 06:38 Iodinated Contrast Media Allergy Mild Hives Verified 06/04/24 06:38 (contrast dye - iodinated) levofloxacin (From Levaquin) Allergy Other Verified 06/04/24 06:38 naproxen Allergy Other Verified 06/04/24 06:38 Penicillins Allergy Other Verified 06/04/24 06:38 Family History Father Cancer Prostate Sister Cancer cholangiocarcinoma- Bile duct Grandfather Cancer Prostate Surgical History S/P D&C (status post dilation and curettage) S/P appendectomy Social History household members: spouse current occupational status: employed current occupation: [employer] Smoking Status: Never smoker alcohol intake: never substance use type: does not use seatbelt use: always do you feel safe at home: Yes additional social history: - [employer]- Retired Review of Systems (Anesthesia) ROS Narrative System reviewed and no additional complaints, except as documented. 06/04/24 0703 mohsen HAUSER> Date _ Amado Alvarez MD Cosigner Signature: Date CC: ~ Signed [facility]01-21-2025 Evaluation note* Diagnosis Onset Date Resolution Status Admit Date Primary hyperparathyroidism acute March 19, 2024 8:42am Screening for osteoporosis acute March 19, 2024 8:42am Thyroid eye disease acute 2024 8:42am Hyperparathyroidism resolved 2024 8:42am Primary hyperparathyroidism acute May 01, 2024 8:01am [facility] Work Phone: 1(208) 571-728401-21-2025 Evaluation note* Diagnosis Onset Date Resolution Status Admit Date Primary hyperparathyroidism acute March 19, 2024 8:42am Screening for osteoporosis acute March 19, 2024 8:42am Thyroid eye disease acute 2024 8:42am Hyperparathyroidism resolved 2024 8:42am Primary hyperparathyroidism acute May 01, 2024 8:01am S/P parathyroidectomy acute Apr 2024 8:48am [facility] Work Phone: 1(679) 201-636207-16-2024 Telephone encounter Note* Telephone Encounter - Leigha Richmond RN - 09/12/2023 9:03 AM EDT S: Pt called [facility] d/t Symptoms/Concerns: lump on stomach Provider: james Ward: BALBIR RN attempted to call patient A No contact Pt last seen 02/27/2020 R: Left VM for pt to call back with any further questions or concerns. Reason for Disposition Message left on identified voicemail Protocols used: No Contact or Duplicate Contact [id number] [phone] Miscellaneous Notes* Telephone Encounter - Leigha Richmond RN - 09/12/2023 9:03 AM EDT S: Pt called [facility] d/t Symptoms/Concerns: lump on stomach Provider: james Ward: BALBIR RN attempted to call patient A No contact Pt last seen 02/27/2020 R: Left VM for pt to call back with any further questions or concerns. Reason for Disposition Message left on identified voicemail Protocols used: No Contact or Duplicate Contact [id number] documented in this encounterSLouis Stokes [facility] for referral (narrative)No reason for referral information availableWCleveland Clinic [facility] Work Phone: Summary Purpose Family History No Family History Records Found Relationship Condition Age at Onset Recorded Date/T ange father Malignant neoplasm Unknown sister Malignant neoplasm Unknown grandfather Malignant neoplasm Unknown Advance Directives No Advanced Directives Records FoundDocuments on File Type Date Recorded Patient Portable 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 No May 21, 2024 11:11am Assessments Diagnosis Cough Chief Complaint and Reason for Visit Chief Complaint Admit Date Parathyroid March 19, 2024 8 :42am Primary hyperparathyroidism February 5:22pm Primary hyperparathyroidism March 9:56am HYPERPARATHYROIDISM April 18, 2024 9:55am parathyroid adenoma May 01, 2024 8:01 am Reason for Visit Admit Date Primary hyperparathyroidism February 8:42am Screening for osteoporosis March 19, 2024 8:42am Thyroid eye disease March 19, 2024 8 :42am Hyperparathyroidism March 19, 2024 8 :42am Primary hyperparathyroidism May 01 8:01am Chief Complaint Admit Date Parathyroid March 19, 2024 8 :42am Primary hyperparathyroidism February 5:22pm Primary hyperparathyroidism March 9:56am HYPERPARATHYROIDISM April 18, 2024 9:55am parathyroid adenoma May 01, 2024 8:01 am PREOP May 23, 2024 10: 32am Parathyroidectomy w/IONM, PTH, and froze n section June 04, 2024 6:06am Parathyroidectomy w/IONM, PTH, and froze n section June 04, 2024 7:13am Chief Complaint Admit Date Parathyroid March 19, 2024 8 :42am Primary hyperparathyroidism February 5:22pm Primary hyperparathyroidism March 9:56am HYPERPARATHYROIDISM April 18, 2024 9:55am parathyroid adenoma May 01, 2024 8:01 am PREOP May 23, 2024 10: 32am Parathyroidectomy w/IONM, PTH, and froze n section June 04, 2024 6:06am Parathyroidectomy w/IONM, PTH, and froze n section June 04, 2024 7:13am PARATHYROIDECTOMY 4-8 June 11, 2024 8 :48am Reason for Visit Admit Date Primary hyperparathyroidism February 8:42am Screening for osteoporosis March 19, 2024 8:42am Thyroid eye disease March 19, 2024 8 :42am Hyperparathyroidism March 19, 2024 8 :42am Primary hyperparathyroidism May 01 025 8:01am S/P parathyroidectomy June 11, 2024 8 :48am Chief Complaint Admit Date Parathyroid March 19, 2024 8 :42am Primary hyperparathyroidism February 5:22pm Primary hyperparathyroidism March 9:56am HYPERPARATHYROIDISM April 18, 2024 9:55am parathyroid adenoma May 01, 2024 8:01 am PREOP May 23, 2024 10: 32am Parathyroidectomy w/IONM, PTH, and froze n section June 04, 2024 6:06am Parathyroidectomy w/IONM, PTH, and froze n section June 04, 2024 7:13am PARATHYROIDECTOMY 4-June 11, 2024 8 :48am ABNORMAL EKG July 15, 2024 12:58 pm Chief Complaint Admit Date PREOP May 23, 2024 10: 32am Parathyroidectomy w/IONM, PTH, and froze n section June 04, 2024 6:06am Parathyroidectomy w/IONM, PTH, and froze n section June 04, 2024 7:13am PARATHYROIDECTOMY -8 June 11, 2024 8 :48am ABNORMAL EKG July 15, 2024 12:58 pm LABS September 03, 2024 11:54 am Reason for Visit Admit Date S/P parathyroidectomy June 11, 2024 8 :48am Chief Complaint Admit Date PREOP May 23, 2024 10: 32am Parathyroidectomy w/IONM, PTH, and froze n section June 04, 2024 6:06am Parathyroidectomy w/IONM, PTH, and froze n section June 04, 2024 7:13am PARATHYROIDECTOMY -8 June 11, 2024 8 :48am ABNORMAL EKG July 15, 2024 12:58 pm LABS September 03, 2024 11:54 am discuss hysterectomy September 20, 2024 3:4 8pm Chief Complaint Admit Date Parathyroidectomy w/IONM, PTH, and froze n section June 04, 2024 6:06am Parathyroidectomy w/IONM, PTH, and froze n section June 04, 2024 7:13am PARATHYROIDECTOMY 4-8 June 11, 2024 8 :48am ABNORMAL EKG July 15, 2024 12:58 pm LABS September 03, 2024 11:54 am discuss hysterectomy September 20, 2024 3:4 8pm Reason for Visit Admit Date S/P parathyroidectomy June 11, 2024 8 :48am Endometrial hyperplasia without atypia, simple September 20, 2024 3:48pm Enlarged uterus September 20, 2024 3:48 pm S/P parathyroidectomy September 20, 2024 3: 48pm Obesity September 20, 2024 3:48 pm Additional Source Comments INFORMATION SOURCE (unrecogn ized section and content) DATE CREATED AUTHOR 08/18/2017 [facility] DATE CREATED AUTHOR AUTHOR'S ORGANIZ ATION 10/12/2018 [facility] DATE CREATED AUTHOR AUTHOR'S ORGANIZ ATION 09/15/2023 [facility] DATE CREATED AUTHOR AUTHOR'S ORGANIZ ATION 11/19/2023 [facility] DATE CREATED AUTHOR AUTHOR'S ORGANIZ ATION 10/05/2024 [facility] Reason for Visit (unrecogniz ed section and content) Reason Onset Date Comments [place] 09/12/2023 Care Teams (unrecognized sec tion and content) 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 Salo Boles MD Attending Provider Active Sta rt: March 19, 2024 End: March 19, 2024 Team Status: Inactive Member Role Status Dates Leigha Wynn NP, NP-C Primary Care Provider Active Start: March 19, 2024 End: March 19, 2024 Dr. Salo Boles MD Attending Provider Active Sta rt: March 19, 2024 End: March 19, 2024 Dr. Salo Boles MD Referring Provider Active Sta rt: March 19, 2024 End: March 19, 2024 Team Status: Inactive Member Role Status Dates Leigha Wynn NP, [employer] Primary Care Provider Active Start: March 28, 2024 End: March 28, 2024 Dr. Salo Boles MD Attending Provider Active Sta rt: March 28, 2024 End: March 28, 2024 Dr. Salo Boles MD Referring Provider Active Sta rt: March 28, 2024 End: March 28, 2024 Team Status: Inactive Member Role Status Dates Leigha Wynn [employer]KER, [employer] Primary Care Provider Active Start: April 09, 2024 End: April 09, 2024 Dr. Salo Boles MD Attending Provider Active Sta rt: April 09, 2024 End: April 09, 2024 Dr. Salo Boles MD Referring Provider Active Sta rt: April 09, 2024 End: April 09, 2024 Team Status: Inactive Member Role Status Dates Leigha Wynn [employer], [employer] Primary Care Provider Active Start: April 18, 2024 End: April 18, 2024 Dr. Slao Boles MD Attending Provider Active Sta rt: April 18, 2024 End: April 18, 2024 Dr. Salo Boles MD Referring Provider Active Sta rt: April 18, 2024 End: April 18, 2024 Team Status: Inactive Member Role Status Dates Leigha Wynn [employer], [employer] Primary Care Provider Active Start: May 01, 2024 End: May 01, 2024 Leigha Wynn [employer], [employer] Referring Provider Active Start: May 01, 2024 End: May 01, 2024 Dr. Errol Adams MD Attending Provider Active Start: May 01, 2024 End: May 01, 2024 Team Status: Inactive Member Role Status Dates Leigha Wynn [employer]ER, [employer] Primary Care Provider Active Start: May 17, 2024 End: May 17, 2024 Leigha Wynn [employer]KER, [employer] Attending Provider Active Start: May 17, 2024 End: May 17, 2024 Leigha Wynn [employer]ER, [employer]-C Referring Provider Active Start: May 17, 2024 End: May 17, 2024 Team Status: Active Member Role Status Dates Leigha Wynn [employer], [employer] Primary Care Provider Active Start: May 23, 2024 End: May 23, 2024 Dr. Maikol Sanchez MD Attending Provider Active S tart: May 23, 2024 End: May 23, 2024 Dr. Errol Adams MD Referring Provider Active Start: May 23, 2024 End: May 23, 2024 Team Status: Inactive Member Role Status Dates Leigha Wynn [employer], [employer] Primary Care Provider Active Start: June 04, 2024 End: June 04, 2024 Dr. Errol Adams MD Attending Provider Active Start: June 04, 2024 End: June 04, 2024 Dr. Errol Adams MD Referring Provider Active Start: June 04, 2024 End: June 04, 2024 Team Status: Active Member Role Status Dates Leigha Wynn [employer], [employer] Primary Care Provider Active Start: June 04, 2024 Dr. Errol Adams MD Attending Provider Active Start: June 04, 2024 Dr. Errol Adams MD Referring Provider Active Start: June 04, 2024 Dr. Errol Adams MD Other Provider Active Sta rt: June 04, 2024 Team Status: Inactive Member Role Status Dates Leigha Wynn [employer], [employer] Primary Care Provider Active Start: June 11, 2024 End: June 11, 2024 Leigha Wynn [employer]KER, [employer] Referring Provider Active Start: June 11, 2024 End: June 11, 2024 Dr. Errol Adams MD Attending Provider Active Start: June 11, 2024 End: June 11, 2024 Team Status: Inactive Member Role Status Dates Leigha Wynn [employer], [employer] Primary Care Provider Active Start: June 11, 2024 End: June 11, 2024 Dr. Errol Adams MD Attending Provider Active Start: June 11, 2024 End: June 11, 2024 Dr. Errol Adams MD Referring Provider Active Start: June 11, 2024 End: June 11, 2024 Team Status: Inactive Member Role Status Dates Leigha Wynn [employer], [employer] Primary Care Provider Active Start: July 15, 2024 End: July 15, 2024 Leigha Wynn [employer]KER, [employer] Attending Provider Active Start: July 15, 2024 End: July 15, 2024 Leigha Wynn [employer]KER, [employer] Referring Provider Active Start: July 15, 2024 End: July 15, 2024 Team Status: Active Member Role Status Dates Leigha Wynn [employer]KER, [employer] Primary Care Provider Active Start: July 15, 2024 Dr. Maikol Sanchez MD Attending Provider Active S tart: July 15, 2024 Team Status: Active Member Role/Relationship Status Dates Legiha Wynn [employer]ER, [employer] Primary Care Provider Active Team Status: Inactive Member Role/Relationship Status Dates Leigha Wynn [employer]ER, [employer] Primary Care Provider Active Start: May 17, 2024 End: May 17, 2024 Leigha Wynn [employer]KER, [employer] Attending Provider Active Start: May 17, 2024 End: May 17, 2024 Leigha Wynn [employer]KER, [employer] Referring Provider Active Start: May 17, 2024 End: May 17, 2024 Team Status: Active Member Role/Relationship Status Dates Leigha Wynn [employer]KER, [employer] Primary Care Provider Active Start: May 23, 2024 End: May 23, 2024 Dr. Maikol Sanchez MD Attending Provider Active S tart: May 23, 2024 End: May 23, 2024 Dr. Errol Adams MD Referring Provider Active Start: May 23, 2024 End: May 23, 2024 Team Status: Inactive Member Role/Relationship Status Dates Leigha Wynn [employer]KER, [employer] Primary Care Provider Active Start: June 04, 2024 End: June 04, 2024 Dr. Errol Adams MD Attending Provider Active Start: June 04, 2024 End: June 04, 2024 Dr. Errol Adams MD Referring Provider Active Start: June 04, 2024 End: June 04, 2024 Team Status: Active Member Role/Relationship Status Dates Leigha Wynn [employer]KER, [employer] Primary Care Provider Active Start: June 04, 2024 Dr. Errol Adams MD Attending Provider Active Start: June 04, 2024 Dr. Errol Adams MD Referring Provider Active Start: June 04, 2024 Dr. Errol Adams MD Other Provider Active Sta rt: June 04, 2024 Team Status: Inactive Member Role/Relationship Status Dates Leigha Wynn [employer]KER, [employer] Primary Care Provider Active Start: June 11, 2024 End: June 11, 2024 Leigha Wynn [employer]KER, [employer]-C Referring Provider Active Start: June 11, 2024 End: June 11, 2024 Dr. Errol Adams MD Attending Provider Active Start: June 11, 2024 End: June 11, 2024 Team Status: Inactive Member Role/Relationship Status Dates Leigha Wynn [employer] MAKER, [employer]-C Primary Care Provider Active Start: June 11, 2024 End: June 11, 2024 Dr. Errol Adams MD Attending Provider Active Start: June 11, 2024 End: June 11, 2024 Dr. Errol Adams MD Referring Provider Active Start: June 11, 2024 End: June 11, 2024 Team Status: Inactive Member Role/Relationship Status Dates Leigha Wynn [employer]KER, [employer] Primary Care Provider Active Start: July 15, 2024 End: July 15, 2024 Leigha Wynn [employer] MAKER, [employer]KER-C Attending Provider Active Start: July 15, 2024 End: July 15, 2024 Leigha Wynn [employer] MAKER, [employer]-C Referring Provider Active Start: July 15, 2024 End: July 15, 2024 Team Status: Active Member Role/Relationship Status Dates Leigha Wynn [employer] MAKER, [employer] Primary Care Provider Active Start: July 15, 2024 Dr. Maikol Sanchez MD Attending Provider Active S tart: July 15, 2024 Team Status: Inactive Member Role/Relationship Status Dates Leigha Wynn [employer]KER, [employer] Primary Care Provider Active Start: September 03, 2024 End: September 03, 2024 Leigha Wynn [employer] MAKER, [employer]-C Attending Provider Active Start: September 03, 2024 End: September 03, 2024 Leigha Wynn [employer] MAKER, [employer] Referring Provider Active Start: September 03, 2024 End: September 03, 2024 Team Status: Active Member Role/Relationship Status Dates Leigha Wynn [employer] MAKER, [employer] Primary Care Provider Active Start: May 23, 2024 End: May 23, 2024 Dr. Maikol Sanchez MD Attending Provider Active S tart: May 23, 2024 End: May 23, 2024 Dr. Errol Adams MD Referring Provider Active Start: May 23, 2024 End: May 23, 2024 Team Status: Inactive Member Role/Relationship Status Dates Leigha Wynn [employer]KER, [employer] Primary Care Provider Active Start: June 04, 2024 End: June 04, 2024 Dr. Errol Adams MD Attending Provider Active Start: June 04, 2024 End: June 04, 2024 Dr. Errol Adams MD Referring Provider Active Start: June 04, 2024 End: June 04, 2024 Team Status: Active Member Role/Relationship Status Dates Leigha Wynn [employer]KER, [employer] Primary Care Provider Active Start: June 04, 2024 Dr. Errol Adams MD Attending Provider Active Start: June 04, 2024 Dr. Errol Adams MD Referring Provider Active Start: June 04, 2024 Dr. Errol Adams MD Other Provider Active Sta rt: June 04, 2024 Team Status: Inactive Member Role/Relationship Status Dates Leigha Wynn [employer] MAKER, [employer] Primary Care Provider Active Start: June 11, 2024 End: June 11, 2024 Leigha Wynn [employer] MAKER, [employer]-C Referring Provider Active Start: June 11, 2024 End: June 11, 2024 Dr. Errol Adams MD Attending Provider Active Start: June 11, 2024 End: June 11, 2024 Team Status: Inactive Member Role/Relationship Status Dates Leigha Wynn [employer] MAKER, [employer] Primary Care Provider Active Start: June 11, 2024 End: June 11, 2024 Dr. Errol Adams MD Attending Provider Active Start: June 11, 2024 End: June 11, 2024 Dr. Errol Adams MD Referring Provider Active Start: June 11, 2024 End: June 11, 2024 Team Status: Inactive Member Role/Relationship Status Dates Leigha Wynn [employer] MAKER, [employer] Primary Care Provider Active Start: July 15, 2024 End: July 15, 2024 Leigha Wynn [employer] MAKER, [employer] Attending Provider Active Start: July 15, 2024 End: July 15, 2024 Leigha Wynn [employer] MAKER, [employer] Referring Provider Active Start: July 15, 2024 End: July 15, 2024 Team Status: Active Member Role/Relationship Status Dates Leigha Wynn [employer] MAKER, [employer] Primary Care Provider Active Start: July 15, 2024 Dr. Maikol Sanchez MD Attending Provider Active S tart: July 15, 2024 Team Status: Inactive Member Role/Relationship Status Dates Leigha Wynn [employer] MAKER, [employer] Primary Care Provider Active Start: September 03, 2024 End: September 03, 2024 Leigha Wynn [employer] MAKER, [employer] Attending Provider Active Start: September 03, 2024 End: September 03, 2024 Leigha Wynn [employer] MAKER, [employer] Referring Provider Active Start: September 03, 2024 End: September 03, 2024 Team Status: Inactive Member Role/Relationship Status Dates Leigha Wynn [employer] MAKER, [employer] Primary Care Provider Active Start: September 20, 2024 End: September 20, 2024 Leigha Wynn [employer] MAKER, [employer] Referring Provider Active Start: September 20, 2024 End: September 20, 2024 Dr. So Jamison DO Attending Provider Activ e Start: September 20, 2024 End: September 20, 2024 Team Status: Inactive Member Role/Relationship Status Dates Leigha Wynn [employer]KER, [employer] Primary Care Provider Active Start: June 04, 2024 End: June 04, 2024 Dr. Errol Adams MD Attending Provider Active Start: June 04, 2024 End: June 04, 2024 Dr. Errol Adams MD Referring Provider Active Start: June 04, 2024 End: June 04, 2024 Team Status: Active Member Role/Relationship Status Dates Leigha Wynn [employer]KER, [employer] Primary Care Provider Active Start: June 04, 2024 Dr. Errol Adams MD Attending Provider Active Start: June 04, 2024 Dr. Errol Adams MD Referring Provider Active Start: June 04, 2024 Dr. Errol Adams MD Other Provider Active Sta rt: June 04, 2024 Team Status: Inactive Member Role/Relationship Status Dates Leigha Wynn [employer]KER, [employer] Primary Care Provider Active Start: June 11, 2024 End: June 11, 2024 Leigha Wynn [employer] MAKER, [employer]-C Referring Provider Active Start: June 11, 2024 End: June 11, 2024 Dr. Errol Adams MD Attending Provider Active Start: June 11, 2024 End: June 11, 2024 Team Status: Inactive Member Role/Relationship Status Dates Leigha Wynn [employer] MAKER, [employer] Primary Care Provider Active Start: June 11, 2024 End: June 11, 2024 Dr. Errol Adams MD Attending Provider Active Start: June 11, 2024 End: June 11, 2024 Dr. Errol Adams MD Referring Provider Active Start: June 11, 2024 End: June 11, 2024 Team Status: Inactive Member Role/Relationship Status Dates Leigha Wynn [employer]KER, [employer] Primary Care Provider Active Start: July 15, 2024 End: July 15, 2024 Leigha Wynn [employer]KER, [employer] Attending Provider Active Start: July 15, 2024 End: July 15, 2024 Leigha Wynn [employer]KER, [employer] Referring Provider Active Start: July 15, 2024 End: July 15, 2024 Team Status: Active Member Role/Relationship Status Dates Leigha Wynn NP, [employer] Primary Care Provider Active Start: July 15, 2024 Dr. Maikol Sanchez MD Attending Provider Active S tart: July 15, 2024 Team Status: Inactive Member Role/Relationship Status Dates Leigha Wynn [employer]KER, [employer] Primary Care Provider Active Start: September 03, 2024 End: September 03, 2024 Leigha Wynn [employer]KER, [employer] Attending Provider Active Start: September 03, 2024 End: September 03, 2024 Leigha Wynn [employer] MAKER, [employer] Referring Provider Active Start: September 03, 2024 End: September 03, 2024 Team Status: Inactive Member Role/Relationship Status Dates Leigha Wynn NP, [employer] Primary Care Provider Active Start: September 20, 2024 End: September 20, 2024 Dr. So Jamison , Attending Provider Activ e Start: September 20, 2024 End: September 20, 2024 Dr. So Jamison , Referring Provider Activ e Start: September 20, 2024 End: September 20, 2024 Goals (unrecognized section and content) Goals may be documented in a n alternate section FOR RECORDS PERTAINING TO PATIENTS WHO ARE OR HAVE BEEN ENROLLED IN A CHEMICAL DEPENDENCY/SUBSTANCEABUSE PROGRAM, SOME INFORMATION MAY BE OMITTED. This clinical summary was aggregated from multiple sources. Caution should be exercised in using it in the provision of clinical care. This summary normalizes information from multiple sources, and as a consequence, information in this document may materially change the coding, format and clinical context of patient data. In addition, data may be omitted in some cases. CLINICAL DECISIONS SHOULD BE BASED ON THE PRIMARY CLINICAL RECORDS. [employer] [facility] provides no warranty or guarantee of the accuracy or completeness of information in this document.
--- NOTE | 2024-10-11 20:14 | PCM.HP.STD ---
[facility] - General General Date of Admission: 10/11/24 Date of Service: 10/11/24 Chief Complaint: Slurred Speech and Visual Changes. HPI Narrative DENISE LOPEZ, is a 58 F with a past medical history of obesity (class II); with BMI of 39.5 this admission, chronic lower extremity dermatitis with ulceration, psoriasis, PVD, history of DM-2; currently not on treatment, history of hyperparathyroidism; s/p parathyroidectomy, thyroid eye disease, history of iodine allergy and OA; on glucosamine who presents to [facility] ER complaining of slurred speech and visual changes. Mrs. Lopez reports her symptoms began approximately 1:30 PM earlier today while she was at the library when she began to have visual disturbance with what she describes as a lolly-like shape that seemed to come from the Right of her visual field followed by a ~7/10 headache that began on the Right-side of her head. She then drove herself home and when she saw her when he noticed abnormal speech which made it difficult to understand her so he decided to bring her in for further evaluation and treatment for presumed CVA. She states her visual disturbance and slurred speech have resolved and her headache has moved to the Left-side of her head and is currently ~2/10. She denies history of TIA/CVA, head trauma, similar previous episodes, recent illness or recent medication changes. She also denies related fever, chills, runny nose, sore throat, ear pain, SOB, cough, chest pain, palpitations, heart racing, dysuria, hematuria or rash but she does admit to recent headache. In the ER she underwent a head CT without contrast that revealed no ICH, mass effect or midline shift followed by CTA of the head and neck with IV contrast that showed common origin of Left common carotid artery and Right innominate artery with no evidence of aneurysm or dissection complicated by laboratory evidence of Dehydration; with BUN/creatinine ratio of 30 with clinical evidence of TIA vs CVA; with transient visual disturbance with slurred speech and she was then admitted to the PCU under observation status for ongoing care for a stay that is expected to expected to be less than 2 midnights. [facility] Medical History Wears glasses Arthritis Scoliosis Non-smoker History of edema Thyroid eye disease Primary hyperparathyroidism Hyperparathyroidism Screening for osteoporosis Home Medications ?Medication ?Instructions ?Recorded ?Last Taken ?Type glucosamine HCl 500 mg tablet 500 mg PO QDAY 09/20/24 10/11/24 13:30 History 500 mg ascorbic acid (vitamin C) 500 mg 500 mg PO DAILY 10/11/24 10/11/24 13:30 History chewable tablet (Acerola C) ergocalciferol (vitamin D2) 1,250 1,250 mcg PO QWEEK 10/11/24 10/05/24 History mcg (50,000 unit) capsule Allergy/AdvReac Type Severity Reaction Status Date / Time aspirin (ASA) Allergy Intermediate Swelling Verified 09/20/24 15:52 Iodinated Contrast Media Allergy Mild Hives Verified 09/20/24 15:52 (contrast dye - iodinated) levofloxacin (From Levaquin) Allergy Other Verified 09/20/24 15:52 naproxen Allergy Other Verified 09/20/24 15:52 Penicillins Allergy Other Verified 09/20/24 15:52 Family History Father Cancer Prostate Sister Cancer cholangiocarcinoma- Bile duct Grandfather Cancer Prostate Surgical History S/P parathyroidectomy S/P D&C (status post dilation and curettage) S/P appendectomy Social History household members: spouse current occupational status: employed current occupation: [employer] Smoking Status: Never smoker alcohol intake: never substance use type: does not use seatbelt use: always do you feel safe at home: Yes additional social history: - [employer]- Retired ROS ROS Narrative Review of Systems: Constitutional: Patient denies fever or chills. Eyes: Patient admits to visual disturbance with spots or lights. ENT: Patient denies runny nose, sore throat or ear pain. Resp: Patient denies SOB or cough. CV: Patient denies chest pain, palpitations or heart racing. GI: Patient denies abdominal pain, nausea, vomiting, diarrhea or constipation. : Patient denies dysuria or hematuria. MSK: Patient denies arthralgias or myalgias. Skin: Patient has no evidence of rash, abscess, wounds or jaundice. Psych: Patient denies symptoms of uncontrolled depression or anxiety. Neuro: Patient admits to headache with slurred speech and visual disturbance as per HPI. Allergy: Patient denies lip swelling, tongue swelling or urticaria. Hematology: Patient denies easy bleeding or easy bruisability. Endocrinology: Patient denies polyuria, polydipsia, polyphagia or heat/cold intolerance. 14 point ROS otherwise negative except for positives noted above in HPI. Vital Signs Vital Signs Vital Signs: 10/11/24 17:16 10/11/24 17:22 10/11/24 17:22 Temperature 98.1 F Temperature Source Temporal Pulse Rate 70 59 L Respiratory Rate 16 16 Blood Pressure 101/53 L 109/64 Blood Pressure Mean 69 79 Pulse Ox 100 99 99 Oxygen Delivery Method Room Air Room Air Room Air 10/11/24 17:52 10/11/24 18:52 10/11/24 19:30 Temperature Temperature Source Pulse Rate 58 L 57 L 49 L Respiratory Rate 16 16 18 Blood Pressure 114/73 105/53 L 106/50 L Blood Pressure Mean 86 70 68 Pulse Ox 99 98 97 Oxygen Delivery Method Room Air Room Air Room Air 10/11/24 19:30 Temperature 98.2 F Temperature Source Pulse Rate 49 L Respiratory Rate 18 Blood Pressure 106/50 L Blood Pressure Mean 68 Pulse Ox 97 Oxygen Delivery Method Weight Weight: 223 lb Body Mass Index (BMI) 39.4 Physical Exam Const alert, oriented x3 and no apparent distress Constitutional Narrative: Obese with nontoxic appearance. General Appearance: cooperative HEENT normocephalic, head/scalp atraumatic, hearing grossly normal bilaterally and moist oral mucous membranes Eyes PERRL and EOMs intact bilaterally Neck no lymphadenopathy, supple and no JVD Resp normal respiratory effort, no retractions, no use of accessory muscles and clear to auscultation bilaterally Cardio regular rate and regular rhythm GI normal to inspection, nondistended, normoactive bowel sounds, soft to palpation, non-tender and non-distended GI Narrative: Obese. Extremity normal to inspection, full ROM and no clubbing, cyanosis or edema Skin Skin Narrative: Patient has no evidence of rash, abscess, wounds or jaundice. Neuro oriented x3, CN's II-XII intact bilaterally, moves all extremities and no focal motor deficits Sensorium / Orientation: awake, alert, oriented to person, oriented to place and oriented to time Speech: speech normal Psych affect normal Results Medical Records Data Attestation: I reviewed the patient's medical records Lab / Micro Data Attestation: I reviewed the patient's lab results. 10/11/24 17:30 10/11/24 17:30 Labs: Laboratory Results - last 24 hr 10/11/24 17:21: POC Glucose 139 H 10/11/24 17:30: WBC 5.8, RBC 4.21, Hgb 13.3, Hct 40.3, MCV 95.7, MCH 31.6, MCHC 33.0, RDW Std Deviation 46.7 H, RDW Coeff of Luisa 13.3, Plt Count 288, MPV 10.9, Immature Gran % (Auto) 0.300, Neut % (Auto) 62.1, Lymph % (Auto) 27.4, Bond % (Auto) 7.1, Eos % (Auto) 2.4, Baso % (Auto) 0.7, Absolute Neuts (auto) 3.6, Absolute Lymphs (auto) 1.59, Nucleated RBC % 0, PT 13.8, INR 1.0, APTT 34.4, Sodium 141, Potassium 4.0, Chloride 106, Carbon Dioxide 24.3, Anion Gap 11, BUN 28 H, Creatinine 0.92, Estim Creat Clear Calc 74.73, Est GFR (MDRD) Non-Af 72, BUN/Creatinine Ratio 30.0 H, Glucose 109 H, Calcium 9.2, Troponin T High Sens 10 10/11/24 19:26: Troponin T Hi Sens 2 Hr 7 Rhythm Strip Rhythm Strip: Sinus Rhythm Rate: 62 Ectopy: None Imaging Radiology Impression Brain CT 10/11/24 17:22 IMPRESSION: No intracranial hemorrhage. No mass effect or midline shift. Reading Location: [facility] Assessment & Plan Assessment/Plan (1) Brain TIA: (2) Slurred speech: (3) Headache: QUALIFIERS: Headache chronicity pattern: acute headache Headache type: unspecified Intractability: not intractable Qualified Code(s): R51.9 - Headache, unspecified (4) Visual disturbance: (5) Dehydration: (6) Obesity (BMI 30-39.9): PLAN: Plan 1. TIA vs CVA; with transient slurred speech, visual disturbance and headache - Admit to PCU under observation status. Check MRI of the brain to evaluate for evidence of CVA. Check echocardiogram to evaluate LVEF. Start clopidogrel (in light of listed allergy to aspirin) plus statin and check TSH, B12, Folate, HgbA1c, Lipid Profile, UDS and HIEU. Give ondansetron IV prn for nausea and vomiting. Give acetaminophen prn for [id number] (level 1-5/10) pain or fever. Give oxycodone orally prn for severe (level 6-10/10) pain. Finally, we will consult [facility] to see this patient on rounds in the a.m. further recommendations help appreciated advancement. 2. Dehydration; with BUN/creatinine ratio of 30 complicating #1 - Gently volume resuscitate and recheck renal indices in AM to confirm improvement. 3. Obesity (class II); with BMI of 39.5 this admission compounding #1 & #2 - Weight loss will be recommended. Check TSH. 4. DM-2; currently not on treatment - ADA diet if patient passes bedside allow evaluation. FSBS q. AC/HS plus SSI. Check HgbA1c to objectively evaluate quality of diabetic control. 5. History of iodine allergy - Noted as she was premedicated with methylprednisolone IV plus prn IV diphenhydramine. 6. History of chronic lower extremity dermatitis with ulceration - Noted with patient having no rash or swelling in her LE's at this time. 7. Psoriasis - Stable and without evidence of acute flare. 8. PVD - Noted. 9. History of hyperparathyroidism; s/p parathyroidectomy - Noted. 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 11. OA; on glucosamine - Give acetaminophen prn for pain or fever. 12. DVT prophylaxis - Enoxaparin 40 mg sq daily plus SCD's. Total time: Approximately (but not less than) 70 minutes. Charges/Coding Visit Charges OBSV E&M: 68029 Observ/hosp same date L2
--- NOTE | 2024-10-11 20:59 | ECHOL_ITS ---
Reason For Study Reason For Study: TIA/CVA Procedure This was a limited 2D transthoracic echocardiogram. Exam performed portable in patient room. Left Ventricle Normal left ventricle. Left ventricular systolic function is normal. Normal diastololic function. The LV ejection fraction is 60 %. No regional wall motion abnormalities noted. Right Ventricle Normal right ventricle. Atria The left and right atria are normal. Bubble contrast study is negative for PFO/ASD. Mitral Valve No eccentric mitral valve insufficiency. Tricuspid Valve Normal tricuspid valve. Right ventricular systolic pressure estimated to be 25 mmHg. Mild (1+) tricuspid valve insufficiency. Aortic Valve There is no aortic stenosis. Pulmonic Valve Normal pulmonic valve. Great Vessels Normal sized aortic root. Inferior vena cava collapse with respiration. Pericardium/Pleural No pericardial effusion. Medication Performed a rapid injection of agitated mix of 9 cc saline and 1cc air to assess for atrial septal defect. MMode/2D Measurements & Calculations LVIDd: 5.0 cm IVSd: 0.83 cm LAV(MOD- bp): 55.0 ml LVIDs: 2.6 cm LVPWd: 0.80 cm RVDd: 3.6 cm FS: 47.9 % LAV(MOD- bp) Indexed: 27.2 ml/m2 LAV(MOD- sp2): 57.1 ml LAV(MOD- sp4): 52.4 ml SV(MOD- sp4): 56.5 ml LVAd ap4: 27.8 cm2 LVAd ap2: 25.9 cm2 LVLd ap4: 7.5 cm LVLd ap2: 7.6 cm SI(MOD- sp4): 27.9 ml/m2 EDV(MOD-sp4): 85.6 ml EDV(MOD-sp2): 74.3 ml EDV(sp4-el): 87.3 ml EDV(sp2-el): 74.7 ml LVAs ap4: 14.8 cm2 LVAs ap2: 14.3 cm2 LVLs ap4: 6.4 cm LVLs ap2: 6.4 cm ESV(MOD-sp4): 29.1 ml ESV(MOD-sp2): 27.5 ml ESV(sp4-el): 29.1 ml ESV(sp2-el): 27.0 ml EF(MOD-sp4): 66.0 % EF(MOD-sp2): 62.9 % EF(sp4-el): 66.7 % SV(MOD-sp2): 46.8 ml SV(sp4-el): 58.3 ml Ao sinus diam: 3.2 cm SI(MOD-sp2): 23.1 ml/m2 Ao ST Junction: 2.6 cm LA dimension(2D): 3.6 cm LA A4 area: 19.0 cm2 RA A4 area: 15.0 cm2 TAPSE: 2.3 cm Time Measurements MV dec time: 0.18 sec Doppler Measurements & Calculations MV E max nacho: 85.7 cm/sec Lat Peak E' Nacho: 14.4 cm/sec Med Peak E' Nacho: 9.8 cm/sec MV A max nacho: 69.6 cm/sec E/E' lat: 5.9 E/E' med: 8.8 MV E/A: 1.2 TR max nacho: 188.9 cm/sec MV dec slope: 478.1 cm/sec2 TR max P.3 mmHg ECHO/Echo, Limited Study Interpretation Summary Left ventricular systolic function is normal. Bubble contrast study is negative for PFO Ordering Physician: Maverick Mitchell Performed By: Mary Ann Mallory RDCS
--- OUTSIDE RECORDS SUMMARY | 2024-10-11 21:04 | XMS RPT_ITS | CCD ---
Author Organization [facility] CliniSyct Care Team Providers Care Language Interpreter Name Role Phone Eron Daigle Unavailable Unavailable UNKNOWN, PROVIDER Unavailable Unavailable Eron Daigle Unavailable Unavailable UNKNOWN, PROVIDER Unavailable Unavailable Eron Daigle Unavailable Unavailable Jaleel Fernando Unavailable Unavailable Eron Daigle Primary Care Provider Eron Daigle DO Primary Care Provider Kingsley [employer], Leigha Primary Care Provider Wynn [employer], Leigha Referring Provider Dr. Salo Boles MD Attending Provider Dr. Salo Boles MD Referring Provider Dr. Errol Adams MD Attending Provider Wynn [employer], Leigha Attending Provider [phone] Dr. Maikol Sanchez MD Attending Provider Dr. Errol Adams MD Referring Provider Dr. Errol Adams MD Other Provider [phone] Wynn [employer], Leigha Primary Care Provider Wynn [employer], Leigha Referring Provider Dr. Errol Adams MD Attending Provider Wynn [employer], Leigha Primary Care Provider Wynn [employer], Leigha Referring Provider Wynn [employer], Leigha Attending Provider Dr. So Jamison DO Attending Provider Wynn [employer], Leigha Primary Care Provider Bryan HAUSER, Dr. [...] Attending Unavailable So Jamison Attending Unavailabl e Wnyn, Leigha Primary Care Unavailable Wynn, Leigha Referring Unavailable BorErrol costa Referring Unavailable Wynn, Leigha Primary Care Unavailable Maikol Sanchez Attending Unavailable Wynn, Leigha Attending Unavailable Wynn, Leigha Primary Care Unavailable Wynn, Leigha Attending Unavailable Wynn, Leigha Primary Care Unavailable Wynn, Leigha Primary Care Unavailable Wynn, Leigha Referring Unavailable Wynn, Leigha Attending Unavailable [place] [employer], Marybeth Referring Unavailable [place] [employer], Marybeth Attending Unavailable Wynn, Leigha Primary Care [...] Unavailable Wynn, Leigha Primary Care Unavailable Radha [employer], Marybeth Attending Unavailable Alekcasso, Eron Referring Unavailable Normansso, Eron Primary Care Unavailable Errol Adams Attending Unavailable Wynn, Leigha Referring Unavailable Wynn, Leigha Primary Care Unavailable Ramana, Salo Attending Unavailable Ramana, Salo Referring Unavailable Wynn, Leigha Primary Care Unavailable Radha [employer], Marybeth Referring Unavailable [place] [employer], Marybeth Attending Unavailable Eron Daigle Primary Care Unavailable Radha [employer], Marybeth Referring Unavailable Radha [employer], Marybeth Attending Unavailable Wynn, Leigha Primary Care [...] (1 source) Codeine Drug Allergy 12-10-19 15 [place], [place] (1 source) Iodine Drug Allergy 12-10-19 15 [place] (8 sources) Naproxen Drug Allergy 12-20-19 15 Shortness Of Breath [place], [place] (1 source) Penicillins Propensity to adverse reactions to drug 12-10-19 15 [place], [place] (7 sources) Aspirin Drug Allergy 05-22-19 25 [facility] Comment on above: swelling of hands (7 sources) levoFLOXacin Drug Allergy 05-22-19 25 Other [facility] (7 sources) Penicillins Allergy to substance 05-22-19 25 Other [facility] (7 sources) Triiodobenzoic Acids Allergy to substance 05-22-19 25 [facility] (1 source) Aspirin Drug Allergy 09-21-19 [facility] Repository (1 source) levoFLOXacin Drug Allergy 09-21-19 [facility] Repository (1 source) Naproxen Drug Allergy 09-21-19 [facility] Repository (1 source) Penicillins Drug allergy (disorder) 09-21-19 [facility] Repository (1 source) Iodinated Contrast Media Drug allergy (disorder) 09-21-19 25 [facility] Repository Medications Current Medications Medication [...] D3) 25 mcg (1,000 unit) capsule Discontinued 79547 ug PO EVERY WEEK March 19, 2024 [...] this and confirm they will follow-up with [facility] physicians. Skin and subcutaneous tissue [...] Documented Date Episodic/Chronic Other aftercare (2 sources) prison (current) use of opiate analgesic; Translations: [prison (current) use of opiate analgesic] Onset: 04-07-2017 [...] Test Name Value Interpretation Reference Range Facility Pediatric Medical Assistant Office Visit Reporton 09-20-2024 Pediatric Medical Assistant Office Visit Report [facility] [address], [address] [place] [address] OFFICE VISIT Date of Service: 09/20/24 MR#: [id number] Acct: [id number] Name: SILKE LOPEZ Rep #: [id number] : 1965 Provider: Dr. So Harrington DO Age/Sex: 58/F Location: [facility] Status: Signed Intake Vital Signs 06/04/24 06:38 09/20/24 15:52 09/20/24 15:54 Height 5 ft 3 in 5 ft 3 in 5 ft 3 in Weight: 225 lb BMI 39.8 BP 101/58 L Intake Visit Reasons: discuss hysterectomy Tow Truck Dispatcher Required: No Is patient in pain?: No [...] CPT C (more content not included)... Normal [facility] Surgery Specimen Level Nilda 09-20-2024 Surgery Specimen Level IV -------- Patient Age/Sex Location Account Attending Physician -------- SILKE LOPEZ 58/F LABSPEC [id number] Dr. So Jamison, Yue -------- Specimen: [id number] Received: 09/20/24 Status: SOHAM Ann Num: [id number] Spec Type: ENDOM BX/C Subm Dr: Dr. [...] of the specimen may not survive processing. [place] 09/23/2024 CPT:23941 -------- Patient Age/Sex Location Account Attending Physician -------- SILKE LOPEZ 58/F LABSPEC [id number] Yue Hall -------- Signed (signature on file) Dr. Debbie Taylor MD 09/26/24 1730 -------- Normal [facility] Comment on above: Performed By: #### L 501.2200, L509.1000, L506.1000, L3300.6900 #### [facility] [place], [place], [address] Vitamin D,25 Hydroxyon 09-03 Vitamin D 25-OH 30.0 ng/mL Normal 30-100 [facility] Comment on above: Result Comment: Magdalena min D Status Deficiency: <20 ng/mL (50nmol/L) Insufficiency: 20-30 ng/mL (50-75 nmol/L) Sufficiency: 30-100 ng/mL (75-250 nmol/L) Toxicity: >100 ng/mL (>250 nmol/L) Performed By: #### L 501.2200, L509.1000, L506.1000, L3300.6900 #### [facility] Laboratory [address] [place], [address] Echo Completeon 07-15-2024 Echo Complete [facility] Cardiovascular Services [address] [place] [address] Echo Complete 07/15/24 1316 MR#: [id number] Acct: [id number] Name: SILKE LOPEZ Rep #: [id number] : 1965 58 From: Maikol Sanchez MD Attending Dr: Leigha Wynn NP-C Status: REG C Ordering Dr: Leigha Wynn [employer] Date: 07/15/24 Location: [facility] Sex: F C Admitted: Reason For Study [...] Wynn Date Dictated: 07/15/246 Date Transcribed: 07/15/241628 Fire Sprinkler Installer: Signed Normal [facility] Echocardiogram study reportO rdered By: Maikol Sanchez on 07-15-2024 Study report [facility] [address] [place] [address] Echo Complete 07/15/24 1316 MR#: [id number] Acct: [id number] Name: SILKE LOPEZ Rep #:[id number] : 1965 58 From: Maikol Turner Attending Dr: EDGAR Long S tatus: REG CLI Ordering Dr: Leigha Wynn NP Onur e: 07/15/24 Location: [facility] Sex: F C Admitted: Reason For Study [...] Date Dictated: 07/15/24 1316 Date Transcribed: 07/15/241628 Fire Sprinkler Installer: Signed [facility] Work Phone: [phone] 06-11-2024 Calcium [Mass/Vol] 9.1 mg/dL Normal 7.6-11.0 [facility] Comment on above: Performed By: #### L 509.1000, L501.0895 #### [facility] Laboratory [address] [place], [address] PTH intactOrdered By: Coleen Adams on 06-11-2024 Parathyroid Hormone (Intact) 56 pg/mL [facility] PTHINon 06-11-2024 PTH 56 pg/mL Normal [facility] Comment on above: Performed By: #### L 509.1000, L501.0895 #### [facility] Laboratory [address] [place], [address] Serum or plasma calcium leta urement (mass/volume)Ordered By: Errol Adams on 06-11-2024 Calcium [Mass/Vol] 9.1 mg/dL 7.6-11.0 [facility] Surgery Visit Reporton 06-11 Surgery Visit Report [facility] [address] [place] [address] OFFICE VISIT Date of Service: 06/11/24 MR#: [id number] Acct: [id number] Name: SILKE LOPEZ Rep #: [id number] : 1965 Provider: Dr. Errol santiago MD [...] Post Op Diagnoses S/P parathyroidectomy Z98.890; Z90.89 [facility] Medical History Wears glasses Arthritis Scoliosis Non-smoker [...] confirm understa (more content not included)... Normal [facility] Vitamin D, 25-hydroxyOrdered By: Errol Adams on 06-11-2024 Vitamin D 25-Hydroxy 21.3 ng/mL Low 30-100 [facility] Comment on above: Vitamin D StatusDefi ciency: <20 ng/mL (50nmol/L)Insufficiency: 20-30 ng/mL (50-75 nmol/L)Sufficiency: 30-100 ng/mL (75-250 nmol/L)Toxicity: >100 ng/mL (>250 nmol/L) Vitamin D,25 Hydroxyon 06-11 Vitamin D 25-OH 21.3 ng/mL Low 30-100 [facility] Comment on above: Result Comment: Magdalena min D Status Deficiency: <20 ng/mL (50nmol/L) Insufficiency: 20-30 ng/mL (50-75 nmol/L) Sufficiency: 30-100 ng/mL (75-250 nmol/L) Toxicity: >100 ng/mL (>250 nmol/L) Performed By: #### L 506.1001 #### [facility] Laboratory [address] [place], [address] Discharge Instructionon Discharge Instruction [facility] Medical Records Department [address] [place] [address] Instructions for Home/Discharge Instructions 06/04/24 1014 MR#: [id number] Acct: [id number] Name: SILKE LOPEZ Rep #: [id number] : 1965 58 From: Errol Adams MD PCP: EDGAR Long Status:DEP [facility] Discharge Instructions Diet Discharge Diet: No restrictions [...] notify Dr. Adams's office immediately. Print Language: Georgian Discharge Orders/Prescriptions Prescriptions: Continued cholecalciferol (vitamin D3) [Vitamin D3] 50 mcg (2,000 unit) capsule 50 mcg PO DAILY triamcinolone acetonide 0.5 % ointment 1 applic TOPICAL .COMPLEX Qty: 45 1RF Rx Instructions: 1 application topically to bilateral legs 1-2 x per day; Referrals / Follow Up: Leigha Wynn NP, [employer] [Primary Care Provider] - Disposition Disposition (needs filled in before D/C Order can be placed): Home, Self Care 06/04/24 6179 Errol Adams MD CC: [employer] Leigha Wynn Signed Normal [facility] Frozen Section (charge)on Frozen Section (charge) ----- -------- Patient Age/Sex Location Account Attending Physician -------- SILKE LOPEZ 58/F [facility] [id number] Dr. Errol Adams MD -------- Specimen: [id number] Received: 06/04/24 Status: SOHAM Ann Num: [id number] Spec Type: PARATHY Subm Dr: Dr. Errol [...] follows:A1. Frozen section remnantA2. Remainder of specimen [facility] 06-04-2024 CPT:37903,43895 -------- Patient Age/Sex Location Account Attending Physician -------- SILKE LOPEZ 58/F [facility] [id number] Dr. Errol Adams MD -------- Signed (signature on file) Dr. Debbie Taylor MD 06/20/24 1654 -------- Normal [facility] Comment on above: Performed By: #### L 501.2200, L509.1000, L506.1000, L3300.6900 #### [facility] Laboratory [address] [facility] [place], [place], [address] MR/POSTOP.Allen 06-04-2024 MR/POSTOP.[facility] Medical Records Department [address] [facility] [place] [address] Anesthesia Postop Eval I 06/04/24 1134 MR#: [id number] Acct: [id number] Name: SILKE LOPEZ Rep #: [id number] : 1965 58 From: Victorino Elias DIRECTOR HEDIS PCP: EDGAR Long Status:REG [facility] Y Race: C Location: [place] [address] Anesthesia: Postop Eval I Current Vital Signs [...] completed: Yes 06/04/24 1135 Date Victorino Elias DIRECTOR HEDIS Cosigner Signature: Date CC: Signed Normal [facility] MR/YJIQRBXS2as 06-04-2024 /[facility] Medical Records Department [address] [place] [address] Anesthesia Postop Eval II 06/04/241915 MR#: [id number] Acct: [id number] Name: SILKE LOPEZ Rep #: [id number] : 1965 58 From: Amado Alvarez MD PCP: EDGAR Long Status:[facility] Y Race: C Location: [facility] Anesthesia Postop Eval I Sum Postop Eval Completion status Anesthesia document: Postop Eval 1 completed: Yes Anesthesia Postop Eval I Summary Anesthesia Postop Eval I Summary: Anesthesia Postop Eval I: Assessment Summary Airway patent Yes 06/04/24 11:35 DIRECTOR [email or web address] Spontaneous unlabored Yes 06/04/24 11:35 DIRECTOR [email or web address] respirations Mental status Awake,Calm 06/04/24 11:35 DIRECTOR [email or web address] nausea No 06/04/24 11:35 DIRECTOR [email or web address] Vomiting No 06/04/24 11:35 DIRECTOR [email or web address] Anesthesia Postop Eval I: Fluid Summary Crystalloid volume administer 1,500 06/04/24 11:35 DIRECTOR [email or web address] (ml) Colloids volume administered ( ml) Blood Product volume administered (ml) Total IV fluid infused 1,500 06/04/24 11:35 DIRECTOR [email or web address] Anesthesia Postop Eval I: Summary Notes Anesthesia Complication No 06/04/24 11:35 DIRECTOR [email or web address] Anesthesia Complication Comment: Post-operative progress note Anesthesia: Postop Eval II Evaluation Mental status: Awake and Calm Pain Level: 1 nausea: No Vomiting: No Complications Anesthesia Complication: No 06/04/24 1916 Date Amado Reganignjelani Signature: Date CC: Signed Normal [facility] Operative Reporton 5 Operative Report [facility] Medical Records Department [address] [place] [address] Operative Report 06/04/24 1012 MR#: [id number] Acct: [id number] Name: SILKE LOPEZ Rep #: [id number] : 1965 58 From: Errol Adams MD PCP: EDGAR Long Status:[facility] Location: [facility] Operative Report (Standard) Operative Information Date of Procedure: 06/04/24 Pre-Operative Diagnosis: 1. Primary Hyperparathyroidism 2. Vitamin D deficiency Post-Operative Diagnosis: 1. Primary Hyperparathyroidism secondary to left inferior parathyroid adenoma 2. Vitamin D deficiency Surgery/Procedure Performed: Minimally invasive parathyroidectomy with intraoperative PTH and nerve monitoring web methods developer: Yes Reach Truck Operator: Dai Carrero Tasks completed by senior sales assistant: Opening closing Type of Anesthesia: General/Supplemental RN [...] for thes (more content not included)... Normal [facility] PTH intactOrdered By: Coleen Adams on 06-04-2024 Parathyroid Hormone (Intact) 22 pg/mL [address] [place] [address] PTHINon 06-04-2024 PTH 22 pg/mL Normal [address] [place] [address] Comment on above: Performed By: #### L 501.2200, L509.1000, L506.1000, L3300.6900 #### [facility] Laboratory [address] [place], [address] PTH 51 pg/mL Normal [address] [place] [address] Comment on above: Order Comment: Comme nts: PTH 15 MIN Performed By: #### L 509.1000 #### [facility] Laboratory [address] [place], [address] PTH 89 pg/mL High [address] [place] [address] Comment on above: Order Comment: Comme nts: PTH INTRAOPERATIVE 5 MIN Performed By: #### L 501.2200, L509.1000, L506.1000, L3300.6900 #### [facility] Laboratory [address] [place], [address] PTH 68 pg/mL High [address] [place] [address] Comment on above: Order Comment: Comme nts: PTH 10 MIN Performed By: #### L 501.2200, L509.1000, L506.1000, L3300.6900 #### [facility] Laboratory [address] [place], [address] PTH 790 pg/mL High [address] [place] [address] Comment on above: Order Comment: Comme nts: PTH INTRAOPERATIVE BASELINE @ 0838 Performed By: #### L 501.2200, L509.1000, L506.1000, L3300.6900 #### [facility] Laboratory [address] [place], [address] PTH 144 pg/mL High [address] [place] [address] Comment on above: Performed By: #### L 509.1000 #### [facility] Laboratory [address] [place], [address] 12 Lead EKGon 05-23-2024 12 Lead EKG [facility] Cardiovascular Services [address] [place] [address] 12 Lead EKG 05/23/24 1032 MR#: [id number] Acct: [id number] Name: SILKE LOPEZ Rep #: [id number] : 1965 58 From: Maikol Sanchez MD Attending Dr: Dr. Errol Adams MD Status: PRE [facility] Ordering Dr: Amado Alvarez MD Date: 05/23/24 Location: [facility] Sex: F C Admitted: Test Reason : [...] Abnormal ECG Confirmed by MAIKOL SANCHEZ MD ([id number]), subeditor RAY HAUSER ([id number]) on 05/23/2024 12:52:44 PM Referred By: Errol Adams Confirmed By: MAIKOL SANCHEZ MD 05/23/24 1252 Date Maikol Sanchez MD CC: EDGAR Wynn; Dr. Amado Alvarez MD; Dr. Errol Adams MD Signed Normal [facility] Electrocardiogram reportOrde red By: Maikol Sanchez on 05-23-2024 EKG study [facility] Cardiovascular Services [address] [place] [address] 12 Lead EKG 05/23/24 1032 MR#: [id number] Acct: [id number] Name: SILKE LOPEZ Rep #:[id number] : 1965 58 From: Maikol Sanchez MD Attending Dr: Dr. Errol Adams MD Status: PRE SDC Ordering Dr: Amado Alvarez MD Date: 05/23/24 Location: [facility] Sex: F C Admitted: Test Reason : [...] Abnormal ECG Confirmed by MAIKOL SANCHEZ MD ([id number]), subeditor RAY HAUSER ([id number]) on 512:52:44 PM Referred By: Errol Adams Confirmed By: MAIKOL SANCHEZ MD 05/23/241251 Date _ Maikol Sanchez MD CC: EDGAR Wynn; Dr. Amado Alvarez MD; Dr. 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 Hx Hospitalization No 05/21/24 11:11 Any Problems [...] take am of surgery PONV 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 Female Yes 05/21/24 11:11 HX of Motion [...] 05/01/24 08:20 Respiratory Assessment Respiratory Assessment - 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: Respiratory Tract Infection Hx - 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 Hx Respiratory Tract Infection No 05/21/24 11:11 STOP Sleep Apnea STOP Sleep Apnea - 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: STOP Sleep Apnea - 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 Hx Hypertension No 05/21/24 11:11 Hx Sleep [...] Tobacco Use History Tobacco Use History - 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: Tobacco Use History - 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 Tobacco Use Smoking Status Never smoker 05/21/24 11:11 Hx Tobacco Use No 05/21/24 11:11 Years Smoking Packs Smoked per Day Smoking Cessation Date was within the last 15 years Hx Smoking Cessation Date Hx Smoking Cessation Counseling Hematologic Medial History Hematologic Hx - 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: Hematologic 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 consultant Hx of Blood Transfusion No 05/21/24 11:11 [...] /Reproductio n History /Reproductiv e History - 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: /Reproductiv e Hx- 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 Hx Now No 05/21/24 11:11 Gestational Age [...] 05/21/24 11:0 (more content not included)... Normal [facility] Anion gap in Serum or Plasma Ordered By: Leigha Wynn on 05-17-2024 Anion gap [Moles/Vol] 9 mmol/L 5-15 [facility] BUN/creatinine ratioOrdered By: Leigha Wynn on 05-17-2024 Urea nitrogen/Creatinine [Mass ratio] 26.9 mg/mg High 10-20 [facility] Bilirubin, totalOrdered By: Leigha Wynn on 05-17-2024 Bilirubin [Mass/Vol] 0.44 mg/dL 0.00-1.30 [facility] CBC-Complete Blood Cnt No Di ffon 05-17-2024 Erythrocyte distribution width (RBC) [Ratio] 12.9 % Normal 11.6-14.6 [facility] Comment on above: Performed By: #### L 501.2200, L509.1000, L506.1000, L3300.6900 #### [facility] Laboratory [address] [place], [address] Hematocrit (Bld) [Volume fraction] 44.7 % Normal 37-47 [facility] Comment on above: Performed By: #### L 501.2200, L509.1000, L506.1000, L3300.6900 #### [facility] Laboratory [address] [place], [address] Hemoglobin (Bld) [Mass/Vol] 15.0 g/dL Normal 12.0-15.0 [facility] Comment on above: Performed By: #### L 501.2200, L509.1000, L506.1000, L3300.6900 #### [facility] Laboratory [address] [place], [address] MCH (RBC) [Entitic mass] 31.4 pg Normal 27.0-32.0 [facility] Comment on above: Performed By: #### L 501.2200, L509.1000, L506.1000, L3300.6900 #### [facility] [address] [place], [address] MCHC (RBC) [Mass/Vol] 33.6 g/dL Normal 32-36 [facility] Comment on above: Performed By: #### L 501.2200, L509.1000, L506.1000, L3300.6900 #### [facility] [address] [place], [address] MCV (RBC) [Entitic vol] 93.5 fL Normal 81-99 [facility] Comment on above: Performed By: #### L 501.2200, L509.1000, L506.1000, L3300.6900 #### [facility] [address] [place], [address] Platelet mean volume (Bld) [Entitic vol] 10.8 fL Normal 6.2-12.0 [facility] Comment on above: Performed By: #### L 501.2200, L509.1000, L506.1000, L3300.6900 #### [facility] [address] [place], [address] Platelets (Bld) [#/Vol] 276 10*3/uL Normal 150-450 [facility] Comment on above: Performed By: #### L 501.2200, L509.1000, L506.1000, L3300.6900 #### [facility] Laboratory [address] [place], [address] RBC (Bld) [#/Vol] 4.78 10*6/uL Normal 4.2-5.4 [facility] Comment on above: Performed By: #### L 501.2200, L509.1000, L506.1000, L3300.6900 #### [facility] [address] [place], [address] RDW SD 45.0 fl High 35.1-43.9 [facility] Comment on above: Performed By: #### L 501.2200, L509.1000, L506.1000, L3300.6900 #### [facility] [address] [place], [address] WBC (Bld) [#/Vol] 6.3 10*3/uL Normal 4.4-11.0 [facility] Comment on above: Performed By: #### L 501.2200, L509.1000, L506.1000, L3300.6900 #### [facility] [address] [place], [address] Calculated very low density lipoprotein (VLDL) cholesterol measurementOrdered By: Leigha Wynn on 05-17-2024 Calculated very low density lipoprotein (VLDL) cholesterol measurement 19 mg/dL 5-40 [facility] VLDL Cholesterol 19 mg/dL 5-40 [facility] Carbon dioxide, total [Moles /volume] in Central venous bloodOrdered By: Leigha Wynn on 05-17-2024 CO2 [Moles/Vol] 25.0 mmol/L 21.0-32.0 [facility] Chloride assayOrdered By: Jairo Wynn on 05-17-2024 Chloride [Moles/Vol] 105 mmol/L 98-108 [facility] Comprehensive Metabolic Prof ilon 05-17-2024 Albumin [Mass/Vol] 4.1 g/dL Normal 3.5-5.0 [facility] Comment on above: Performed By: #### L 509.1000 #### [facility] [address] [place], [address] Albumin/Globulin [Mass ratio] 1.5 {ratio} Normal 0.9-2.4 [facility] Comment on above: Performed By: #### L 509.1000 #### [facility] [address] [place], [address] ALK PHOS 64 U/L Normal 35-104 [facility] Comment on above: Performed By: #### L 509.1000 #### [facility] [address] [place], [address] ALT [Catalytic activity/Vol] 33 U/L Normal <=34 [facility] Comment on above: Performed By: #### L 509.1000 #### [facility] [address] [place], [address] AST [Catalytic activity/Vol] 27 U/L Normal <=31 [facility] Comment on above: Performed By: #### L 509.1000 #### [facility] [address] [place], [address] Bilirubin [Mass/Vol] 0.44 mg/dL Normal 0.00-1.30 [facility] Comment on above: Performed By: #### L 509.1000 #### [facility] [address] [place], [address] BUN/CRE 26.9 RATIO High 10-20 [facility] Comment on above: Performed By: #### L 509.1000 #### [facility] [address] [place], [address] Calcium [Mass/Vol] 11.4 mg/dL High 7.6-11.0 [facility] Comment on above: Performed By: #### L 509.1000 #### [facility] [address] [place], [address] Chloride [Moles/Vol] 105 mmol/L Normal 98-108 [facility] Comment on above: Performed By: #### L 509.1000 #### [facility] [address] [place], [address] CO2 [Moles/Vol] 25.0 mmol/L Normal 21.0-32.0 [facility] Comment on above: Performed By: #### L 509.1000 #### [facility] [address] [place], [address] Creatinine [Mass/Vol] 0.89 mg/dL Normal 0.70-1.20 [facility] Comment on above: Performed By: #### L 509.1000 #### [facility] [address] [place], [address] GAP 9 Normal 5-15 [facility] Comment on above: Performed By: #### L 509.1000 #### [facility] [address] [place], [address] GFR/1.73 sq M.predicted among non-blacks MDRD (S/P/Bld) [Vol rate/Area] 75 mL/min/{1.73_m2} Normal >60 [facility] Comment on above: Result Comment: mL/m in/1.73m2 CKD-EPI Creatinine Equation (2020) Performed By: #### L 509.1000 #### [facility] [address] [place], [address] Globulin (S) [Mass/Vol] 2.8 g/dL Normal 2.2-4.2 [facility] Comment on above: Performed By: #### L 509.1000 #### [facility] [address] [place], [address] Glucose [Mass/Vol] 91 mg/dL Normal 70-99 [facility] Comment on above: Performed By: #### L 509.1000 #### [facility] [address] [place], [address] Potassium [Moles/Vol] 4.6 mmol/L Normal 3.3-5.1 [facility] Comment on above: Performed By: #### L 509.1000 #### [facility] [address] [place], [address] Sodium [Moles/Vol] 138 mmol/L Normal 133-145 [facility] Comment on above: Performed By: #### L 509.1000 #### [facility] [address] [place], [address] T PROT 6.9 g/dL Normal 5.9-8.4 [facility] Comment on above: Performed By: #### L 509.1000 #### [facility] [address] [place], [address] Urea nitrogen [Mass/Vol] 24 mg/dL High 4-19 [facility] Comment on above: Performed By: #### L 509.1000 #### [facility] [address] [place], [address] Erythrocyte distribution wid th ratioOrdered By: Leigha Wynn on 05-17-2024 Erythrocyte distribution width (RBC) [Ratio] 12.9 % 11.6-14.6 [facility] Erythrocyte distribution wid th standard deviationOrdered By: Leigha Wynn on 05-17-2024 Erythrocyte distribution width (RBC) [Entitic vol] 45.0 fL High 35.1-43.9 [facility] Erythrocyte distribution width (RBC) [Ratio] 45.0 fl High 35.1-43.9 [facility] GFR/1.73 sq M.predicted khai g non-blacks MDRD (S/P/Bld) [Vol rate/Area]Ordered By: Leigha Wynn on 05-17-2024 Estimated GFR (MDRD) Non-Af Amer 75 >60 [facility] Comment on above: mL/min/1.73m2 CKD-EP I Creatinine Equation (2020) Glomerular filtration rate ( GFR) estimation/1.73 sq m using serum, plasma, or whole bOrdered By: Leigha Wynn on 05-17-2024 GFR/1.73 sq M.predicted among non-blacks MDRD (S/P/Bld) [Vol rate/Area] 75 mL/min/{1.73_m2} >60 [facility] Comment on above: mL/min/1.73m2 CKD-EP I Creatinine Equation (2020) Hematocrit Auto (Bld) [Volum e fraction]Ordered By: Leigha Wynn on 05-17-2024 Hematocrit (Bld) [Volume fraction] 44.7 % 37-47 [facility] Hemoglobin A1con 05-17-2024 HbA1c (Bld) [Mass fraction] 5.6 % Low <=5.6 [facility] Comment on above: Performed By: #### L 509.1000 #### [facility] [place], [address] Hemoglobin A1c percentageOrd ered By: Leigha Wynn on 05-17-2024 HbA1c (Bld) [Mass fraction] 5.6 % Low >5.7 [facility] Hemoglobin measurementOrdere d By: Leigha Wynn on 05-17-2024 Hemoglobin (Bld) [Mass/Vol] 15.0 g/dL 12.0-15.0 [facility] Hepatitis C antibodyOrdered By: Leigha Wynn on 05-17-2024 Hepatitis C Antibody Non-Reactive Nonreactive [facility] Comment on above: Reactive: Presumptiv e evidence of antibodies to HCV. Follow CDC recommendations for supplemental testing.Non-Reactive: Antibodies to HCV were not detected; does not exclude the possibility of exposure to HCVReactive Results are presumptive evidence of antibodies to HCV. Follow CDC recommendations for supplemental testing.Order confirmation testing: HCV Quant by PCR testing - HCVPCR #[id number] Non Reactive: < 0.8 Equivocal: >/= 0.8 to < 1.0 Reactive: >/= 1.0The CDC requires that a reactive/equivocal HCV antibody result be sent out for confirmation. HCV Quant by PCR testing. L3890.6301on 05-17-2024 Hepatitis C Ab Non-Reactive Normal Nonreactive [facility] Comment on above: Result Comment: Reac tive: Presumptive evidence of antibodies to HCV. Follow CDC recommendations for supplemental testing. Non-Reactive: Antibodies to HCV were not detected; does not exclude the possibility of exposure to HCV Reactive Results are presumptive evidence of antibodies to HCV. Follow CDC recommendations for supplemental testing. Order confirmation testing: HCV Quant by PCR testing - HCVPCR #[id number] Non Reactive: < 0.8 Equivocal: >/= 0.8 to < 1.0 Reactive: >/= 1.0 The [facility] requires that a reactive/equivocal HCV antibody result be sent out for confirmation. HCV Quant by PCR testing. Performed By: #### L 509.1000 #### [facility] [address] [place], [address] L506.1001on 05-17-2024 Vitamin D 25-OH 22.3 ng/mL Low 30-100 [facility] Comment on above: Result Comment: Magdalena min D Status Deficiency: <20 ng/mL (50nmol/L) Insufficiency: 20-30 ng/mL (50-75 nmol/L) Sufficiency: 30-100 ng/mL (75-250 nmol/L) Toxicity: >100 ng/mL (>250 nmol/L) Performed By: #### L 509.1000 #### [facility] [address] [facility] [place], [place], [address] LDL calc ser/plasOrdered By: Leigha Wynn on 05-17-2024 Cholesterol in LDL [Mass/Vol] 128 mg/dL [facility] Comment on above: Vbwrwpqimi=853-451 m g/dL & Higher Lptm=107 mg/dL or greater LDL Cholesterol, Calculated 128 mg/dL [facility] Comment on above: Ltauvioahw=313-820 m g/dL & Higher Oqgq=806 mg/dL or greater Laboratory - Chemistry and C hemistry - challengeOrdered By: Leigha Wynn on 05-17-2024 AST [Catalytic activity/Vol] 27 U/L <32 [facility] Lipid Profileon 05-17-2024 CHOL:HDL 6.04 Normal [facility] Comment on above: Performed By: #### L 509.1000 #### [facility] [address] [facility] [address] [place], [address] Cholesterol [Mass/Vol] 177 mg/dL Normal <=200 [facility] Comment on above: Result Comment: Chol esterol level, Desirable <200 mg/dL Borderline high cholesterol 200-239 mg/dL High cholesterol >=240 mg/dL Recommendations of the NCEP Adult Treatment Panel for the following risk-cutoff thresholds for the [place] population. Performed By: #### L 509.1000 #### [facility] [address] [facility] [address] Cholesterol in HDL [Mass/Vol] 29 mg/dL Low [facility] Comment on above: Result Comment: Liv onal Cholesterol Education Program (NCEP) guidelines: <40 mg/dL: Low HDL-cholesterol (major risk factor for CHD) >= 60 mg/dL: High HDL-cholesterol (negative risk factor for CHD) HDL-cholesterol is affected by a number of factors, e.g. smoking, exercise, hormones, sex and age. Performed By: #### L 509.1000 #### [facility] [address] [facility] [address] Cholesterol in LDL [Mass/Vol] 128 mg/dL Normal [facility] Comment on above: Result Comment: Bord nyaguo=598-829 mg/dL Higher Huea=950 mg/dL or greater Performed By: #### L 509.1000 #### [facility] [address] [facility] [address] Cholesterol in VLDL [Mass/Vol] 19 mg/dL Normal 5-40 [facility] Comment on above: Performed By: #### L 509.1000 #### [facility] [address] [facility] [address] Triglyceride [Mass/Vol] 97 mg/dL Normal [facility] Comment on above: Result Comment: The drugs N-Acetylcysteine and Metamizole may falsely depress this assay. Normal range: <150 mg/dL Borderline High: 150-199 mg/dL High: 200-499 mg/dL Very High: >500 mg/dL Performed By: #### L 509.1000 #### [facility] [address] [place], [address] MCV (mean corpuscular volume ) determinationOrdered By: Leigha Wynn on 05-17-2024 MCV (RBC) [Entitic vol] 93.5 fL 81-99 [facility] Mean corpuscular hemoglobin (MCH) determinationOrdered By: Leigha Wynn on 05-17-2024 MCH (RBC) [Entitic mass] 31.4 pg 27.0-32.0 [facility] Mean corpuscular hemoglobin concentration (MCHC) determinationOrdered By: Leigha Wynn on 05-17-2024 MCHC (RBC) [Mass/Vol] 33.6 g/dL 32-36 [facility] Mean platelet volume determi nationOrdered By: Leigha Wynn on 05-17-2024 Platelet mean volume (Bld) [Entitic vol] 10.8 fL 6.2-12.0 [facility] PTH intactOrdered By: Leigha Wynn on 05-17-2024 Parathyroid Hormone (Intact) 172 pg/mL High 11- [facility] PTHINon 05-17-2024 PTH 172 pg/mL High [facility] Comment on above: Performed By: #### L 501.2200, L509.1000, L506.1000, L3300.6900 #### [facility] [address] [place], [address] Platelet countOrdered By: Jairo Wynn on 05-17-2024 Platelets (Bld) [#/Vol] 276 10*3/uL 150-450 [facility] Potassium (Unsp spec) [Mass/ Vol]Ordered By: Leigha Wynn on 05-17-2024 Potassium [Moles/Vol] 4.6 mmol/L 3.3-5.1 [facility] Potassium measurement (mass/ volume)Ordered By: Leigha Wynn on 05-17-2024 Potassium (Unsp spec) [Mass/Vol] 4.6 mmol/L 3.3-5.1 [facility] RBC Auto (Bld) [#/Vol]Ordere d By: Leigha Wynn on 05-17-2024 RBC (Bld) [#/Vol] 4.78 10*6/uL 4.2-5.4 [facility] Screening total cholesterol/ high density lipoprotein (HDL) cholesterol ratioOrdered By: Leigha Wynn on 05-17-2024 Cholesterol.total/Nan sterol in HDL [Mass ratio] 6.04 {ratio} [facility] Serum creatinine measurement (mass/volume)Ordered By: Leigha Wynn on 05-17-2024 Creatinine [Mass/Vol] 0.89 mg/dL 0.70-1.20 [facility] Serum globulin measurementOr dered By: Leigha Wynn on 05-17-2024 Globulin (S) [Mass/Vol] 2.8 g/dL 2.2-4.2 [facility] Serum glucose measurement (m ass/volume)Ordered By: Leigha Wynn on 05-17-2024 Glucose [Mass/Vol] 91 mg/dL 70-99 [facility] Serum or plasma alanine ortiz otransferase (ALT) measurementOrdered By: Leigha Wynn on 05-17-2024 ALT [Catalytic activity/Vol] 33 U/L <35 [facility] Serum or plasma albumin leta urement (mass/volume)Ordered By: Leigha Wynn on 05-17-2024 Albumin [Mass/Vol] 4.1 g/dL 3.5-5.0 [facility] Serum or plasma albumin/glob ulin mass ratioOrdered By: Leigha Wynn on 05-17-2024 Albumin/Globulin [Mass ratio] 1.5 {ratio} 0.9-2.4 [facility] Serum or plasma alkaline ailyn sphatase measurementOrdered By: Leigha Wynn on 05-17-2024 ALP [Catalytic activity/Vol] 64 U/L 35-104 [facility] Serum or plasma calcium leta urement (mass/volume)Ordered By: Leigha Wynn on 05-17-2024 Calcium [Mass/Vol] 11.4 mg/dL High 7.6-11.0 [facility] Serum or plasma cholesterol in HDL measurement (mass/volume)Ordered By: Leigha Wynn on 05-17-2024 Cholesterol in HDL [Mass/Vol] 29 mg/dL Low >40 [facility] Comment on above: National Cholesterol Education Program (NCEP) guidelines:<40 mg/dL: Low HDL-cholesterol (major risk factor for CHD)>= 60 mg/dL: High HDL-cholesterol (negative risk factor for CHD)HDL-cholesterol is affected by a number of factors, e.g. smoking, exercise, hormones, sex and age. Serum or plasma cholesterol measurement (mass/volume)Ordered By: Leigha Wynn on 05-17-2024 Cholesterol [Mass/Vol] 177 mg/dL <201 [facility] Comment on above: Cholesterol level, D esirable <200 mg/dLBorderline high cholesterol 200-239 mg/dLHigh cholesterol >=240 mg/dLRecommendations of the NCEP Adult Treatment Panel for the following risk-cutoff thresholds for the [place] population. Serum or plasma urea nitroge n measurement (mass/volume)Ordered By: Leigha Wynn on 05-17-2024 Urea nitrogen [Mass/Vol] 24 mg/dL High 4-19 [facility] Sodium levelOrdered By: Jerel Wynn on 05-17-2024 Sodium [Moles/Vol] 138 mmol/L 133-145 [facility] Total proteinOrdered By: Thea Wynn on 05-17-2024 Protein [Mass/Vol] 6.9 g/dL 5.9-8.4 [facility] Triglycerides measurementOrd ered By: Leigha Wynn on 05-17-2024 Triglyceride [Mass/Vol] 97 mg/dL <199 [facility] Comment on above: The drugs N-Acetylcy steine and Metamizole may falsely depress this assay. Normal range: <150 mg/dLBorderline High: 150-199 mg/dLHigh: 200-499 mg/dLVery High: >500 mg/dL Vitamin D, 25-hydroxyOrdered By: Leigha Wynn on 05-17-2024 Vitamin D 25-Hydroxy 22.3 ng/mL Low 30-100 [facility] Comment on above: Vitamin D StatusDefi ciency: <20 ng/mL (50nmol/L)Insufficiency: 20-30 ng/mL (50-75 nmol/L)Sufficiency: 30-100 ng/mL (75-250 nmol/L)Toxicity: >100 ng/mL (>250 nmol/L) White blood cell (WBC) count Ordered By: Leigha Wynn on 05-17-2024 WBC (Bld) [#/Vol] 6.3 10*3/uL 4.4-11.0 [facility] Surgery Visit Reporton 05-01 Surgery Visit Report [facility] [address] [place] [address] OFFICE VISIT Date of Service: 05/01/24 MR#: [id number] Acct: [id number] Name: SILKE LOPEZ Rep #: [id number] : 1965 Provider: Dr. Errol santiago MD Age/Sex: 58/F Location: [facility] Status: Signed Intake Vital Signs 03/19/24 08:43 [...] QWEEK 03/19/2405/01 History mcg (1,000 unit) capsule [facility] Medical History Thyroid eye disease Primary hyperparathyroidism [...] Psychiatric: No (more content not included)... Normal [facility] Dexa Bone Density Studyon Dexa Bone Density Study [facility] [address] [place] [address] Dexa Bone Density Study MR#: [id number] Acct: [id number] Name: SILKE LOPEZ Rep #: [id number] : 1965 F 58 From: Butch Kinney i DO PCP: EDGAR Long Status: REG CLI Study: Dexa Bone Density Study Date of Exam: 04/18/24 Exam# [id number] Ordering Dr: Salo Boles MD PROCEDURE: DEXA [...] of the [employer] [place] for Metabolic Bone Disease, World Health Organization (WHO) Collaborating [place]. 1-The 10-year probability of fracture may be lower than reported if the patient has received treatment. 2-Major Osteoporotic Fracture: Clinical Spine, Forearm, Hip or Shoulder. The T-scores are also available for review on the [facility] PACS or by accessing the [facility] electronic medical record. BD/Dexa Bone Density Study IMPRESSION: Osteopenia. [facility] CC: EDGAR Wynn; Dr. Salo Boles MD Fire Sprinkler Installer: Signed Normal [facility] Parathyroid Scanon Parathyroid scan [facility] [address] [place] [address] Parathyroid Scan MR#: [id number] Acct: [id number] Name: SILKE LOPEZ Rep #: [id number] : 1965 F 58 From: Maverick Turner PCP: EDGAR Long Status: REG CLI Study: Parathyroid Scan Date of Exam: 04/09/24 Exam# [id number] Ordering Dr: Salo Boles MD PROCEDURE: PARATHYROID [...] a left inferior parathyroid adenoma. Reading Location: [id number] CC: EDGAR Wynn; Dr. Salo Boles MD Fire Sprinkler Installer: Signed Normal [facility] Thyroidon 03-28-2024 Thyroid [facility] [address] [place], [place] [address] Thyroid MR#: [id number] Acct: [id number] Name: SILKE LOPEZ Rep #: [id number] : 1965 F 58 From: Aris Morales MD PCP: EDGAR Long Status: REG CLI Study: Thyroid Date of Exam: 03/28/24 Exam# [id number] Ordering Dr: Salo Boles MD PROCEDURE: THYROID [...] [place]-C Leigha Wynn; Dr. Salo Boles MD Fire Sprinkler Installer: Signed Normal [facility] Thyroid Peroxidase ABon 02-28 THYR PEROX AB < 9 Normal 0-34 [facility] Comment on above: Result Comment: Perf ormed at: - [facility] [address] [id number] Rack Loader: Kyaw Bowie PhD, Phone: [phone] Performed By: #### L 622.7316, F435.2152, M879.4694, F6229.0024 #### [facility] [address] [place], [place], [address] [id number] DOrdered By: Robert Boles on 03-19-2024 Vitamin D 25-Hydroxy 32.7 ng/mL [facility] Comment on above: Vitamin D 25(OH) Sta tus Range Deficiency <20 ng/mL (50nmol/L) Insufficiency 20 - 30 ng/mL (50 - 75 nmol/L) Sufficiency 30 - 100 ng/mL (75 - 250 nmol/L) Toxicity >100 ng/mL (>250 nmol/L) Calcium,Totalon 03-19-2024 CA,Total 11.9 mg/dL High 8.5-10.1 [facility] Comment on above: Performed By: #### L 501.2200, L509.1000, L506.1000, L3300.6900 #### [facility] [address] [place], [address] Endocrinology Visit Reporton 03-19-2024 Endocrinology Visit Report [facility] [address] [place], [place] [address] OFFICE VISIT Date of Service: 03/19/24 MR#: [id number] Acct: [id number] Name: SILKE LOPEZ Rep #: [id number] : 1965 Provider: Samantha Urias Age/Sex: 58/F Location: [facility] Status: Signed Intake Vital Signs 11/28/23 10:36 [...] Process: n (more content not included)... Normal [facility] Intact parathyroid hormone ( iPTH) measurementOrdered By: Salo Boles on 03-19-2024 Parathyroid Hormone (Intact) 204.1 pg/mL High 18.4-80.1 [facility] PTHINon 03-19-2024 PTH 204.1 pg/mL High 18.4-80.1 [facility] Comment on above: Performed By: #### L 501.2200, L509.1000, L506.1000, L3300.6900 #### [facility] [address] [place] [address], [address] Serum or plasma calcium leta urement (mass/volume)Ordered By: Salo Boles on 03-19-2024 Calcium [Mass/Vol] 11.9 mg/dL High 8.5-10.1 [facility] Serum or plasma thyroperoxid ase antibody assay (units/volume)Ordered By: Salo Boles on 03-19-2024 TPO Ab Qn [IU]/mL 0-34 [facility] Comment on above: Performed at: [address] [id number] Director: Kyaw Bowie PhD, Phone: [phone] TPO Ab QnOrdered By: Salo Tony mynor on 03-19-2024 Thyroid Peroxidase Antibodies < 9 IU/mL 0-34 [facility] Comment on above: Performed at: [address] [id number] Director: Kyaw Bowie PhD, Phone: [phone] Vitamin D,25 Hydroxyon 03-19 Vitamin D 25-OH 32.7 ng/mL Normal [facility] Comment on above: Result Comment: Magdalena min D 25(OH) Status Range Deficiency <20 ng/mL (50nmol/L) Insufficiency 20 - 30 ng/mL (50 - 75 nmol/L) Sufficiency 30 - 100 ng/mL (75 - 250 nmol/L) Toxicity >100 ng/mL (>250 nmol/L) Performed By: #### L 501.2200, L509.1000, L506.1000, L3300.6900 #### [facility] [address] [place], [place], [address] Thyroid Stim Hormone (TSH)on 01-08-2024 TSH 2.900 uIU/mL Normal 0.358-3.740 [facility] Comment on above: Performed By: #### L 501.2200, L509.1000, L506.1000, L3300.6900 #### [facility] [address] [place], [place], [address] Pediatric Medical Assistant Office Visit Reporton 12-29-2023 Pediatric Medical Assistant Office Visit Report [facility] [address], [address] [place] [address] OFFICE VISIT Date of Service: 12/29/23 MR#: [id number] Acct: [id number] Name: SILKE LOPEZ Rep #: [id number] : 1965 Provider: Dr. So Harrington DO Age/Sex: 58/F Location: [facility] Status: Signed Intake Vital Signs 11/28/23 10:36 12/29/23 10:59 12/29/23 11:00 Height 5 ft 3 in 5 ft 3 in 5 ft 3 in Weight: 271 lb 2 oz 262 lb 6 oz BMI 48.0 46.5 BP 122/78 H 109/71 Intake Visit Reasons: discuss surgery Tow Truck Dispatcher Required: No Is patient in pain?: No [...] Osborne Signature: Date (if applicable) CC: Normal [facility] SCRN MAMM (CAD)W/ALBERTO andrews 12-08-2023 SCRN MAMM (CAD)W/ALBERTO PRABHAKAR [facility] [address] [place] [address] SCRN MAMM (CAD)W/ALBERTO BILAT MR#: [id number] Acct: [id number] Name: SILKE LOPEZ Rep #: [id number] : 1965 F 58 From: Socrates Brewer MD PCP: EDGAR Long Status: REG CLI Study: SCRN MAMM (CAD)W/ALBERTO BILAT Date of Exam: 11/27 03/22 Exam# [id number] Ordering Dr: Marybeth Garcia NP, NP -C [id number] MAMMOGRAPHY - BILATERAL SCREENING 3-D TOMOSYNTHESIS REASON [...] EDT , CC: EDGAR Garcia; EDGAR Wynn Fire Sprinkler Installer: Signed Normal [facility] Pelvic w/ Transvaginalon Pelvic w/ Transvaginal [facility] [address] [place] [address] Pelvic w/ Transvaginal MR#: [id number] Acct: [id number] Name: SILKE LOPEZ Rep #: [id number] : 1965 F 58 From: Delfino Olivera DO PCP: EDGAR Long Status: REG CLI Study: Pelvic w/ Transvaginal Date of Exam: 12/04/23 Exam# [id number] Ordering Dr: Marybeth Garcia NP [employer] -C ADDENDUM by Dr. Oswaldo Retana MD on 12/06/23 at 1534 ======== ADDENDUM ======== [id number] ADDENDUM report. There is thickening of the endometrium at 10 mm. The patient is postmenopausal. Further investigation recommended. Electronically Signed: Oswaldo Retana MD at 15:34 EDT , 12/06/23 1534 Date cc: EDGAR Garcia; EDGAR Wynn * Signed ADDENDUM by Dr. Oswaldo Retana MD on 12/06/23 at 1534 US/Pelvic w/ Transvaginal IMPRESSION: undefined 12/06/23 1541 Date cc: EDGAR Garcia; EDGAR Wynn * Signed [id number] INDICATION: PMB EXAMINATION: Ultrasound US Pelvis Non [...] 17:02 EDT Reading Location ID and State: [facility] / [place] Tel [phone], Service support , CC: EDGAR Garcia; EDGAR Wynn Fire Sprinkler Installer: Signed Normal [facility] PAP IG HPV APTIMA 16/18,45on 12-03-2023 ADEQ Comment Normal . [facility] Comment on above: Order Comment: Speci men Comment: [id number] Specimen Comment: Source.............Cervix Specimen Comment: Other..............Post Menopausal Specimen Comment: No. of containers..01 ThinPrep Vial Result Comment: Sati sfactory for evaluation. Endocervical and/or squamous metaplastic cells (endocervical component) are present. Performed By: #### L 7400.0280 #### [facility] [address] [place], [address] COMM . Normal . [facility] Comment on above: Order Comment: Speci men Comment: [id number] Specimen Comment: Source.............Cervix Specimen Comment: Other..............Post Menopausal Specimen Comment: No. of containers..01 ThinPrep Vial Performed By: #### L 7400.0280 #### [facility] [address] [place], [place], [id number] COMMENT Comment Normal . [facility] Comment on above: Order Comment: Speci men Comment: [id number] Specimen Comment: Source.............Cervix Specimen Comment: Other..............Post Menopausal Specimen Comment: No. of containers..01 ThinPrep Vial Result Comment: This liquid based ThinPrep(R) pap test was screened with the use of an image guided system. Performed By: #### L 7400.0280 #### [facility] [address] [facility] [place], [place], [id number] DIAG Comment Normal . [facility] Comment on above: Order Comment: Speci men Comment: [id number] Specimen Comment: Source.............Cervix Specimen Comment: Other..............Post Menopausal Specimen Comment: No. of containers..01 ThinPrep Vial Result Comment: NEGA TIVE FOR INTRAEPITHELIAL LESION OR MALIGNANCY. Performed By: #### L 7400.0280 #### [facility] [address] [place], [place], [address] HPV APTIMA, HR Negative Normal Negative [facility] Comment on above: Order Comment: Speci men Comment: [id number] Specimen Comment: Source.............Cervix Specimen Comment: Other..............Post Menopausal Specimen Comment: No. of containers..01 ThinPrep Vial Result Comment: This nucleic acid amplification test detects fourteen high- risk HPV types (16,18,31,33,35,39,45,51,52,56,58,59,66,68) without differentiation. Performed By: #### L 7400.0280 #### [facility] [address] [place], [address] HPV Chloe Rfx Comment Normal . [facility] Comment on above: Order Comment: Speci men Comment: [id number] Specimen Comment: Source.............Cervix Specimen Comment: Other..............Post Menopausal Specimen Comment: No. of containers..01 ThinPrep Vial Result Comment: Crit eria not met, HPV Genotype not performed. Performed at: [address] [id number] Rack Loader: Elvi Chan MD, Phone: [phone] Performed at: = - [address] [id number] Rack Loader: Elvi Chan MD, Phone: [phone] Performed By: #### L 7400.0280 #### [facility] [address] [place], [address] PAPSMR Comment Normal . [facility] Comment on above: Order Comment: Speci men Comment: [id number] Specimen Comment: Source.............Cervix Specimen Comment: Other..............Post Menopausal [...] occur. Performed By: #### L 7400.0280 #### [facility] [address] [place], [address] PERFORM Comment Normal . [facility] Comment on above: Order Comment: Speci men Comment: [id number] Specimen Comment: Source.............Cervix Specimen Comment: Other..............Post Menopausal Specimen Comment: No. of containers..01 ThinPrep Vial Result Comment: Jeremy Nash, Industrial Engineering Technologist (ASCP) Performed By: #### L 7400.0280 #### [facility] [address] [place], [place], [address] Pediatric Medical Assistant Office Visit Reporton 11-28-2023 Pediatric Medical Assistant Office Visit Report [facility] [address], [address] [place] [address] OFFICE VISIT Date of Service: 11/28/23 MR#: [id number] Acct: [id number] Name: SILKE LOPEZ Rep #: [id number] : 1965 Provider: EDGAR granado Age/Sex: 58/F Location: [facility] [place] Status: Signed Intake Vital Signs 01/28/20 00:29 11/28/23 10:36 Height 5 ft 3 in 5 ft 3 in Weight: 271 lb 2 oz BMI 48.0 BP 122/78 H Intake Visit Reasons: POSTMENOPAUSAL BLEEDING/SPOTTING (MIGUEL A GALVAN.) Chief Complaint: EMB-PMB Tow Truck Dispatcher Required: No Is patient in pain?: No [...] noted. Coding Level of Care Code Attention Pastry Decorator Diagnoses Postmenopausal bleeding N95.0 Enlarged uterus N85.2 CPT Codes Endometrial Biopsy (26423) Assessment and Plan Assessment and Plan (1) Postmenopausal bleeding: Status: Acute Comment: EMB pending. US ordered (2) Enlarged uterus: Status: Acute Orders: Orders Pelvic w/ Transvaginal Today N95.0 - Postmenopausal bleeding Endometrial Biopsy Today PAP IG HPV APTIMA 16/18,45 Today Z12.4 - Encounter for screening for malignant neop (more content not included)... Normal [facility] Surgery Specimen Level Nilda 11-28-2023 Surgery Specimen Level IV -------- Patient Age/Sex Location Account Attending Physician -------- SILKE LOPEZ 58/F LABSPEC [id number] EDGAR Rose -------- Specimen: [id number] Received: 11/28/23 Status: SOHAM Ann Num: [id number] Spec Type: ENDOM BX/C Julia Dr: EDGAR [...] totally submitted in one cassette. 11/28/2023 TC:5 CPT:68670 -------- Patient Age/Sex Location Account Attending Physician -------- SILKE LOPEZ 58/F LABSPEC [id number] EDGAR Rose -------- Signed (signature on file) Dr. Dominic Hui MD 11/29/23 1146 -------- Normal [facility] Comment on above: Performed By: #### L 501.2200, L509.1000, L506.1000, L3300.6900 #### [facility] [address] [place], [place] [address] [place], [place], [address] PTH, INTACT AND CALCIUMon Calcium [Mass/Vol] 11.2 mg/dL High 8.6-10.4 [facility] Comment on above: Order Comment: FASTI NG:YES FASTING: YES Performed By: #### 8 933, 44548 #### [facility] [address], [address] [place] [address] Social Organization Professor: Nabil Montaño MD PARATHYROID HORMONE, INTACT 155 [...] Low Normal High Performed By: #### 8 177, 25603 #### [facility] [place] [address] Social Organization Professor: Nabil Montaño MD VITAMIN D,25-OH,TOTAL,IAon 0 11-17-2023 [...] D, (D2,D3), LC/MS/MS is recommended: order code 16316 (patients >2yrs). See Note 1 Note 1 For additional information, please refer to http://education.AirClic/faq/HXN702 (This link is being provided for informational/ educational purposes only.) Performed By: #### 8 347, 71129 #### [place] [address] Social Organization Professor: Nabil Montaño MD CBC (INCLUDES DIFF/PLT)on Basophils (Bld) [#/Vol] 0.04 10*3/uL Normal 0-200 [facility] Comment on above: Performed By: #### 6 399, 89414, 494, 3110 #### [facility] [address], [address] [place], [place] [address] Social Organization Professor: Nabil Montaño MD Basophils/100 WBC (Bld) 0.8 % Normal [facility] Comment on above: Performed By: #### 6 399, 69571, 496, 7600 #### [facility] of [place] [address] Social Organization Professor: Nabil Montaño MD Eosinophils (Bld) [#/Vol] 0.1 10*3/uL Normal 15-500 [facility] Comment on above: Performed By: #### 6 399, 07305, 496, 7600 #### [facility] of [place] [address] Social Organization Professor: Nabil Montaño MD Eosinophils/100 WBC (Bld) 2.0 % Normal [facility] Comment on above: Performed By: #### 6 399, 25366, 496, 7600 #### [facility] [place] [address] Social Organization Professor: Nabil Montaño MD Erythrocyte distribution width (RBC) [Ratio] 13.7 % Normal 11.0-15.0 [facility] Comment on above: Performed By: #### 6 399, 34405, 496, 7600 #### [facility] of [place] [address] Social Organization Professor: Nabil Montaño MD Hematocrit (Bld) [Volume fraction] 48.0 % High 35.0-45.0 [facility] Comment on above: Performed By: #### 6 399, 68530, 496, 7600 #### [facility] of [place] [address] Social Organization Professor: Nabil Montaño MD Hemoglobin (Bld) [Mass/Vol] 15.8 g/dL High 11.7-15.5 [facility] Comment on above: Performed By: #### 6 399, 32300, 496, 7600 #### [facility] [place] [address] Social Organization Professor: Nabil Montaño MD Lymphocytes (Bld) [#/Vol] 1.48 10*3/uL Normal 850-3900 [facility] Comment on above: Performed By: #### 6 399, 07199, 496, 7600 #### [facility] of [place] [address] Social Organization Professor: Nabil Montaño MD Lymphocytes/100 WBC (Bld) 29.6 % Normal [facility] Comment on above: Performed By: #### 6 399, 42919, 496, 7600 #### [facility] of [place] [address] Social Organization Professor: Nabil Montaño MD MCH (RBC) [Entitic mass] 31.5 pg Normal 27.0-33.0 [facility] Comment on above: Performed By: #### 6 399, 38550, 496, 7600 #### [facility] of [place] [address] Social Organization Professor: Nabil Montaño MD MCHC (RBC) [Mass/Vol] 32.9 g/dL Normal 32.0-36.[address] [facility] Comment on above: Performed By: #### 6 399, 38803, 496, 7600 #### [facility] [place] [address] Social Organization Professor: Nabil Montaño MD MCV (RBC) [Entitic vol] 95.6 fL Normal 80.0-100.0 [facility] Comment on above: Performed By: #### 6 399, 17152, 496, 7600 #### [facility] [place] [address] Social Organization Professor: Nabil Montaño MD Monocytes (Bld) [#/Vol] 0.35 10*3/uL Normal 200-950 [facility] Comment on above: Performed By: #### 6 399, 85602, 496, 7600 #### [facility] [place] [address] Social Organization Professor: Nabil Montaño MD Monocytes/100 WBC (Bld) 7.0 % Normal [facility] Comment on above: Performed By: #### 6 399, 20949, 496, 7600 #### [facility] of [address] [place] [address] Social Organization Professor: Nabil Montaño MD Neutrophils (Bld) [#/Vol] 3.03 10*3/uL Normal 1861-0026 [facility] Comment on above: Performed By: #### 6 399, 01052, 496, 7600 #### [facility] of [address], [address] [place] [address] Social Organization Professor: Nabil Montaño MD Neutrophils/100 WBC (Bld) 60.6 % Normal [facility] Comment on above: Performed By: #### 6 399, 18057, 496, 7600 #### [facility] of [address], [address] [place] [address] Social Organization Professor: Nabil Montaño MD Platelet mean volume (Bld) [Entitic vol] 10.7 fL Normal 7.5-12.5 [facility] Comment on above: Performed By: #### 6 399, 18714, 496, 7600 #### [facility] of [address], [address] [place] [address] Social Organization Professor: Nabil Montaño MD Platelets (Bld) [#/Vol] 276 10*3/uL Normal 140-400 [facility] Comment on above: Performed By: #### 6 399, 73444, 496, 7600 #### [facility] [place] [address] Social Organization Professor: Nabil Montaño MD RBC (Bld) [#/Vol] 5.02 10*6/uL Normal 3.80-5.10 [facility] Comment on above: Performed By: #### 6 399, 87398, 496, 7600 #### [facility] of [place] [address] Social Organization Professor: Nabil Montaño MD WBC (Bld) [#/Vol] 5.0 10*3/uL Normal 3.8-10.8 [facility] Comment on above: Performed By: #### 6 399, 50054, 496, 7600 #### [facility] of [address], [address] [place] [address] Social Organization Professor: Nabil Montaño MD [facility] 10-27-2023 Albumin [Mass/Vol] 4.3 g/dL Normal 3.6-5.1 [facility] Comment on above: Performed By: #### 6 399, 36372, 496, 7600 #### [facility] of [address], [address] [place] [address] Social Organization Professor: Nabil Montaño MD Albumin/Globulin [Mass ratio] 1.5 {ratio} Normal 1.0-2.5 [facility] Comment on above: Performed By: #### 6 399, 92794, 496, 7600 #### [facility] of [place] [address] Social Organization Professor: Nabil Montaño MD ALP [Catalytic activity/Vol] 66 U/L Normal 37-153 [facility] Comment on above: Performed By: #### 6 399, 66388, 496, 7600 #### [facility] [place] [address] Social Organization Professor: Nabil Montaño MD ALT [Catalytic activity/Vol] 21 U/L Normal 6-29 [facility] Comment on above: Performed By: #### 6 399, 30624, 496, 7600 #### [facility] [place] [address] Social Organization Professor: Nabil Montaño MD AST [Catalytic activity/Vol] 17 U/L Normal 10-35 [facility] Comment on above: Performed By: #### 6 399, 89927, 496, 7600 #### [facility] [place] [address] Social Organization Professor: Nabil Montaño MD Bilirubin [Mass/Vol] 0.8 mg/dL Normal 0.2-1.2 [facility] Comment on above: Performed By: #### 6 399, 13412, 496, 7600 #### [facility] of [address] [place] [address] Social Organization Professor: Nabil Montaño MD BUN/CREATININE RATIO SEE NOTE: Normal 6-22 [facility] Comment on above: Result Comment: Not Reported: BUN and Creatinine are within reference range. Performed By: #### 6 399, 33570, 496, 7600 #### [facility] [address], [address] [place] [address] Social Organization Professor: Nabil Montaño MD Calcium [Mass/Vol] 11.3 mg/dL High 8.6-10.4 [facility] Comment on above: Performed By: #### 6 399, 45222, 496, 7600 #### [facility] [place] [address] Social Organization Professor: Nabil Montaño MD Chloride [Moles/Vol] 107 mmol/L Normal 98-110 [facility] Comment on above: Performed By: #### 6 399, 75655, 496, 7600 #### [facility] [place] [address] Social Organization Professor: Nabil Montaño MD CO2 [Moles/Vol] 25 mmol/L Normal 20-32 [facility] Comment on above: Performed By: #### 6 399, 87034, 496, 7600 #### [facility] [place] [address] Social Organization Professor: Nabil Montaño MD Creatinine [Mass/Vol] 0.89 mg/dL Normal 0.50-1.03 [facility] Comment on above: Performed By: #### 6 399, 71340, 496, 7600 #### [facility] of [place] [address] Social Organization Professor: Nabil Montaño MD GFR/1.73 sq M.predicted among non-blacks MDRD (S/P/Bld) [Vol rate/Area] 75 mL/min/{1.73_m2} Normal > OR = 60 [facility] Comment on above: Performed By: #### 6 399, 58177, 496, 7600 #### [facility] of [address], [address] [place] [address] Social Organization Professor: Nabil Montaño MD Globulin (S) [Mass/Vol] 2.8 g/dL Normal 1.9-3.7 [facility] Comment on above: Performed By: #### 6 399, 73353, 496, 7600 #### [facility] of [place] [address] Social Organization Professor: Nabil Montaño MD Glucose [Mass/Vol] 89 mg/dL Normal 65-99 [facility] Comment on above: Result Comment: Fasting reference interval Performed By: #### 6 399, 84735, 496, 7600 #### [facility] [place] [address] Social Organization Professor: Nabil Montaño MD Potassium [Moles/Vol] 4.8 mmol/L Normal 3.5-5.[address] [facility] Comment on above: Performed By: #### 6 399, 04167, 496, 7600 #### [facility] [place] [address] Social Organization Professor: Nabil Montaño MD Protein [Mass/Vol] 7.1 g/dL Normal 6.1-8.1 [facility] Comment on above: Performed By: #### 6 399, 27023, 496, 7600 #### [facility] [place] [address] Social Organization Professor: Nabil Montaño MD Sodium [Moles/Vol] 139 mmol/L Normal 135-146 [facility] Comment on above: Performed By: #### 6 399, 73135, 496, 7600 #### [facility] of [place] [address] Social Organization Professor: Nabil Montaño MD Urea nitrogen [Mass/Vol] 25 mg/dL Normal 7-25 [facility] Comment on above: Performed By: #### 6 399, 64632, 496, 7600 #### [facility] of [place] [address] [place] [address] Social Organization Professor: Nabil Montaño MD HEMOGLOBIN A1con 10-27-2023 HEMOGLOBIN A1c 5.8 % of total Hgb High <5.7 [facility] Comment on above: Result Comment: For [...] change in test platforms from the [employer] to the Ivis byron c503 may have shifted HbA1c results compared to historical results. Based on laboratory validation testing conducted at [facility], the Ivis platform relative to the Pascual [...] not recommended. Performed By: #### 6 399, 64318, 493, 4993 #### [facility] [address], [address] [place], [place] [id number] Social Organization Professor: Nabil Montaño MD HEPATITIS C AB W/REFL TO HCV RNA, QN, PCRon 10-27-2023 HEPATITIS C ANTIBODY Non-Reactive Normal NON-REACTIVE [facility] Comment on above: Result Comment: HCV antibody was non-reactive. There is no laboratory evidence of HCV infection. In most cases, no further action is required. However, if recent HCV exposure is suspected, a test for HCV RNA (test code 22298) is suggested. For additional information please refer to http://education.Silvigen.Biglion/faq/IPA21g5 (This link is being provided for informational/ educational purposes only.) Performed By: #### 6 399, 98362, 496, 1980 #### [facility] [address], [address] [place] [address] Social Organization Professor: Nabil Montaño MD LIPID PANEL, [facility] 09-29 Cholesterol [Mass/Vol] 206 mg/dL High <200 [facility] Comment on above: Order Comment: FASTI NG:YES FASTING: YES Performed By: #### 6 399, 14508, 496, 7600 #### [facility] [address], [address] [place] [address] Social Organization Professor: Nabil Montaño MD Cholesterol in HDL [Mass/Vol] 33 mg/dL Low > OR = 50 [facility] Comment on above: Order Comment: FASTI NG:YES FASTING: YES Performed By: #### 6 399, 70395, 496, 7600 #### [facility] [address], [address] [place] [address] Social Organization Professor: Nabil Montaño MD Cholesterol in LDL [Mass/Vol] [...] Oscar SS et al. JOSE LUIS. 2013;310(19): 6910-6423 (http://education.OndaVia.Biglion/faq/ZQN637) Performed By: #### 6 399, 38070, 496, 7600 #### [facility] [address], [address] [place] [address] Social Organization Professor: Nabil Montaño MD Cholesterol.total/Nan sterol in HDL [Mass ratio] 6.2 {ratio} High <5.0 [facility] Comment on above: Order Comment: FASTI NG:YES FASTING: YES Performed By: #### 6 399, 59152, 496, 7600 #### [facility] [address], [address] [place] [address] Social Organization Professor: Nabil Montaño MD NON HDL CHOLESTEROL 173 mg/dL (calc) High <130 [facility] Comment on above: Order Comment: FASTI NG:YES FASTING: YES Result Comment: For patients with diabetes plus 1 major ASCVD risk factor, treating to a non-HDL-C goal of <100 mg/dL (LDL-C of <70 mg/dL) is considered a therapeutic option. Performed By: #### 6 399, 63946, 496, 7600 #### [facility] [address], [address] [place] [address] Social Organization Professor: Nabil Montaño MD Triglyceride [Mass/Vol] 106 mg/dL Normal <150 [facility] Comment on above: Order Comment: FASTI NG:YES FASTING: YES Performed By: #### 6 399, 37272, 496, 7600 #### [facility] [address], [address] [place] [address] Social Organization Professor: Nabil Montaño MD 36on 09-12-2023 36 S: Pt called [facility] d/t Symptoms/Concerns: lump on stomach Provider: james daigle B: CAC RN attempted to call patient A No contact Pt last seen 02/27/2020 R: Left VM for pt to call back with any further questions or concerns. Reason for Disposition ? Message left on identified voicemail Protocols used: No Contact or Duplicate Contact [facility] Chest PA/LATon 10-11-2018 CR Chest PA/LAT Patient Name: SILKE LOPEZ Diagnostic Radiology Exam Date/Time 10/11/2018 14:47:08 EDT Exam CR Chest PA/LAT Ordering Physician DO DAIGLE PAUL E. Accession Number [id number] CPT4 Codes 89916 () Reason For Exam . Report Indication: [...] Transcribed Date and Time: 10/11/2018 2:59 Normal [facility] XR CHEST STANDARD (2 VW)on 0 10-11-2018 Patient Name: SILKE LOPEZ ---Diagnostic Radiology--- Exam Date/Time 10/11/2018 14:47:08 EDT Exam CR Chest PA/LAT Ordering Physician DO DAIGLE PAUL E. Accession Number [id number] CPT4 Codes 93771 () Reason For Exam . Report Indication: [...] ANTHONY Transcribed Date and Time: 10/11/2018 2:59 [facility], [facility], [facility] Incoming Radiology Results From [facility] - 10/11/2018 2:59 PM EDT Patient Name: SILKE LOPEZ ---Diagnostic Radiology--- Exam Date/Time 10/11/2018 14:47:08 EDT Exam CR Chest PA/LAT Ordering Physician DO DAIGLE PAUL E. Accession Number [id number] CPT4 Codes 37378 () Reason For Exam . Report Indication: [...] ANTHONY Transcribed Date and Time: 10/11/2018 2:59 [place], [place] VL Venous Duplex US Lower Ex t Lefton 04-06-2017 VL Venous Duplex US Lower Ext Left Patient Name: SILKE LOPEZ Ultrasound Exam Date/Time 04/06/2017 17:12:55 EST Exam VL Venous Duplex US Lower Ext Left Ordering Physician DO DAIGLE PAUL E. Accession Number [id number] CPT4 Codes 60384 () Reason For Exam Left leg pain [facility] --- Left Lower Extremity Venous Duplex Report Patient Name: Silke Lopez : 1965 (51yrs) Study Date: 04/06/2017 Age: 51 Account: [id number] Gender: F Loc: BP: Ordering: Eron Daigle Technologist: Ordering Physician: Eron Daigle Social Science Professor: Yoana Florez RDMS, T Interpreting Physician: Kyaw Delong MD --- Location: [facility] --- INDICATIONS: Pain in limb - left [...] performed. The images were obtained using a [employer] Aplio vascular ultrasound machine. --- VENOUS FLOW [...] --+ Electronically signed by: Kyaw Delong MD [id number]:43 Final Dictated: 04/07/2017 2:14 pm Dictating Physician: KYAW DELONG Signed Date and Time: 04/07/2017 2:13 pm Signed by: KYAW DELONG [facility] Vital Signs Date Time Vital Sign Value Performing Clinician Rojelio valenzuela 09-20-2024 15:54-0400 Body height 160.02 cm Leigha Wynn [employer] Work Phone: [facility] 09-20-2024 15:52-0400 Body mass index (BMI) [Ratio] 39.8 kg/m2 Leigha Wynn [employer] Work Phone: [facility] 09-20-2024 15:52-0400 Body weight 102.05 kg Leigha Wynn [employer] Work Phone: [facility] 09-20-2024 15:52-0400 Diastolic blood pressure 58 mm[Hg] Leigha Wynn [employer] Work Phone: [facility] 09-20-2024 15:52-0400 Systolic blood pressure 101 mm[Hg] Leigha Wynn [employer] Work Phone: [facility] 06-04-2024 13:39-0400 Body temperature 98.4 [degF] Leigha Wynn [employer] Work Phone: [facility] 06-04-2024 13:39-0400 Diastolic blood pressure 67 mm[Hg] Leigha Wynn [employer] Work Phone: [facility] 06-04-2024 13:39-0400 Heart rate 50 /min Leigha Wynn [employer] Work Phone: [facility] 06-04-2024 13:39-0400 Respiratory rate 16 /min Leigha Wynn [employer] Work Phone: [facility] 06-04-2024 13:39-0400 SaO2% (BldA) [Mass fraction] 97 % Leigha Wynn [employer] Work Phone: [facility] 06-04-2024 13:39-0400 Systolic blood pressure 106 mm[Hg] Leigha Wynn [employer] Work Phone: [facility] 06-04-2024 06:38-0400 Body height 160.02 cm Leigha Wynn [employer] Work Phone: [facility] 06-04-2024 06:38-0400 Body mass index (BMI) [Ratio] 42.5 kg/m2 Leigha Wynn [employer] Work Phone: [facility] 06-04-2024 06:38-0400 Body weight 109 kg Leigha Wynn [employer] Work Phone: [facility] 05-01-2024 08:20-0500 Body height 160.02 cm Leigha Wynn [employer] Work Phone: [facility] 05-01-2024 08:20-0500 Body mass index (BMI) [Ratio] 44.2 kg/m2 Leigha Wynn [employer] Work Phone: [facility] 05-01-2024 08:20-0500 Body weight 113.39 kg Leigha Wynn [employer] Work Phone: [facility] 05-01-2024 08:20-0500 Diastolic blood pressure 74 mm[Hg] Leigha Wynn [employer] Work Phone: [facility] 05-01-2024 08:20-0500 Heart rate 69 /min Leigha Wynn [employer] Work Phone: [facility] 05-01-2024 08:20-0500 Respiratory rate 17 /min Leigha Wynn [employer] Work Phone: [facility] 05-01-2024 08:20-0500 SaO2% (BldA) [Mass fraction] 100 % Leigha Wynn [employer] Work Phone: [facility] 05-01-2024 08:20-0500 Systolic blood pressure 109 mm[Hg] Leigha Wynn [employer] Work Phone: [facility] 03-19-2024 08:43-0500 Body mass index (BMI) [Ratio] 44.6 kg/m2 Leigha Wynn [employer] Work Phone: [facility] 03-19-2024 08:43-0500 Body weight 114.36 kg Leigha Wynn [employer] Work Phone: [facility] 03-19-2024 08:43-0500 Diastolic blood pressure 71 mm[Hg] Leigha Wynn [employer] Work Phone: [facility] 03-19-2024 08:43-0500 Heart rate 62 /min Leigha Wynn [employer] Work Phone: [facility] 03-19-2024 08:43-0500 SaO2% (BldA) [Mass fraction] 98 % Leigha Wynn [employer] Work Phone: [facility] 03-19-2024 08:43-0500 Systolic blood pressure 109 mm[Hg] Leigha Wynn [employer] Work Phone: [facility] Encounters Encounter Date Encounter Type Care Provider Facility Start: 11-19-2024 ambulatory So Jamison Facility:[facility] Start: 09-20-2024 End: 09-20-[address] So Jamison DO -[facility] Work Phone: Start: 09-20-2024 End: 09-20-2024 ambulatory Leigha Wynn NP-C Work Phone: -[facility] Start: 09-20-2024 End: 09-20-2024 ambulatory Leigha Wynn NP-C Work Phone: -Laboratory Specimen Start: 09-20-2024 End: 09-20-[address] So Jamison DO -Laboratory Specimen Work Phone: Start: 09-20-2024 End: 09-20-2024 ambulatory So Jamison Facility:[facility] Start: 09-03-2024 End: 09-03-2024 ambulatory Leigha Wynn NP-C Work Phone: -Laboratory Start: 09-03-2024 End: 09-03-2024 Patient encounter procedure Leigha Wynn [employer] -Laboratory Work Phone: Start: 09-03-2024 End: 09-03-2024 ambulatory Leigha Wynn Facility:[facility] Start: 07-15-2024 Non-patient / Non-visit Dr. Purnima HAUSER -[facility] Start: 07-15-2024 End: 07-15-2024 ambulatory Leigha Fontenotsey [employer] Work Phone: [facility] Work Phone: Start: 07-15-2024 End: 07-15-2024 Patient encounter procedure Legiha Fontenotsey [employer] -Cardiovascular Services Work Phone: Start: 07-15-2024 End: 07-15-2024 ambulatory Leigha Fontenotsey Facility:[facility] Start: 06-11-2024 End: 06-11-[address] Errol Adams MD -[facility] Work Phone: Start: 06-11-2024 End: 06-11-2024 ambulatory Leigha Fontenotsey [employer] Work Phone: [facility] Work Phone: Start: 06-11-2024 End: 06-11-2024 ambulatory Errol Adams Facility:[facility] Start: 06-04-2024 ambulatory Errol Adams Facility: [facility] Start: 06-04-2024 Non-patient / Non-visit Dr. Larissa Adams MD -[facility] Start: 06-04-2024 End: 06-04-2024 Admission to same day surgery center Dr. Errol Adams MD -[facility] Start: 06-04-2024 End: 06-04-2024 ambulatory Leigha Wynn [employer] Work Phone: [facility] Work Phone: Start: 05-24-2024 Encounter for other preprocedural examination Leighakobi Wynn [facility] Start: 05-23-2024 End: 05-23-2024 ambulatory Errol Adams Facility:[facility] Start: 05-23-2024 End: 05-23-2024 Non-patient / Non-visit Dr. Maikol Sanchez MD -[facility] Work Phone: Start: 05-17-2024 End: 05-17-2024 ambulatory Leigha Wynn [employer] Work Phone: [facility] Work Phone: Start: 05-17-2024 End: 05-17-2024 Patient encounter procedure Leigha Wynn [employer] -Laboratory Work Phone: Start: 05-17-2024 End: 05-17-2024 ambulatory Leigha Fontenotsey Facility:[facility] Start: 05-01-2024 End: 05-01-[address] Errol Adams MD -[facility] Work Phone: Start: 05-01-2024 End: 05-01-2024 ambulatory Errol Adams Facility:[facility] Start: 04-18-2024 End: 04-18-[address] Salo Boles MD -Outpatient Bone Densitometry Work Phone: Start: 04-18-2024 End: 04-18-2024 ambulatory [facility] Facility:[facility] Start: 04-09-2024 End: 04-09-[address] Salo Boles MD -Nuclear Medicine, [facility] Work Phone: Start: 04-09-2024 End: 04-09-2024 ambulatory [facility] Facility:[facility] Start: 03-28-2024 End: 03-28-[address] Salo Boles MD -Ultrasound, [facility] Work Phone: Start: 03-28-2024 End: 03-28-2024 ambulatory Salo Ramana Facility:[facility] Start: 03-19-2024 End: 03-19-[address] Salo Boles MD -Laboratory Work Phone: Start: 03-19-2024 End: 03-19-[address] Salo Boles MD -[facility] Work Phone: Start: 03-19-2024 End: 03-19-2024 ambulatory Leighakobi Wynn Facility:[facility] Start: 03-19-2024 End: 03-19-2024 ambulatory Salo Boles Facility:[facility] Start: 01-08-2024 End: 01-08-2024 ambulatory So Jamison Facility:[facility] Start: 12-29-2023 End: 12-29-2023 ambulatory So Jamison Facility:[facility] Start: 12-08-2023 ambulatory Leigha Wynn Facility: [facility] Start: 12-08-2023 End: 12-08-2023 ambulatory Marybeth Nevada [employer] Facility:[facility] Start: 12-04-2023 ambulatory Leigha Fontenotsey Facility: [facility] Start: 12-04-2023 End: 12-04-2023 ambulatory Marybeth Nevada [employer] Facility:[facility] Start: 11-28-2023 End: 11-28-2023 ambulatory Marybeth Nevada [employer] Facility:[facility] Start: 11-28-2023 End: 11-28-2023 ambulatory Marybeth Radha [employer] Facility:[facility] Start: 10-26-2023 ambulatory Leigha Kingsley Facility: [facility] Start: 09-12-2023 End: 09-12-2023 ambulatory [facility] Start: 09-12-2023 End: 09-12-2023 Patient encounter procedure [facility] Start: 10-11-2018 End: 10-11-2018 Subsequent hospital visit by physician Eron Daigle Work Phone: [facility] Comment on above: Cough Start: 04-07-2017 Evaluation and management of inpatient PROVIDER [facility] Start: 04-06-2017 Ambulatory [facility] Procedures Date Procedure Procedure Detail Performing Clinician Start: 09-03-2024 Vitamin D, 25-hydrox y measurement Leigha Wynn [employer] Work Phone: Comment on above: Vitamin D StatusDefi ciency: <20 ng/mL (50nmol/L)Insufficiency: 20-30 ng/mL (50-75 nmol/L)Sufficiency: 30-100 ng/mL (75-250 nmol/L)Toxicity: >100 ng/mL (>250 nmol/L) Start: 06-11-2024 Vitamin D, 25-hydrox y measurement Leigha Wynn [employer] Work Phone: Comment on above: Vitamin D StatusDefi ciency: <20 ng/mL (50nmol/L)Insufficiency: 20-30 ng/mL (50-75 nmol/L)Sufficiency: 30-100 ng/mL (75-250 nmol/L)Toxicity: >100 ng/mL (>250 nmol/L) Start: 06-11-2024 Parathyroid hormone measurement Leigha Wynn [employer] Work Phone: Start: 06-04-2024 Parathyroid hormone measurement Leigah Wynn [employer] Work Phone: Start: 06-04-2024 Parathyroidectomy Ric Wynn [employer] Work Phone: Start: 05-17-2024 Hepatitis C antibody measurement Leigha Wynn [employer] Work Phone: Comment on above: Reactive: Presumptiv e evidence of antibodies to HCV. Follow CDC recommendations for supplemental testing.Non-Reactive: Antibodies to HCV were not detected; does not exclude the possibility of exposure to HCVReactive Results are presumptive evidence of antibodies to HCV. Follow CDC recommendations for supplemental testing.Order confirmation testing: HCV Quant by PCR testing - HCVPCR #[id number] Non Reactive: < 0.8 Equivocal: >/= 0.8 to < 1.0 Reactive: >/= 1.0The CDC requires that a reactive/equivocal HCV antibody result be sent out for confirmation. HCV Quant by PCR testing. Start: 05-17-2024 Parathyroid hormone measurement Leigha Wynn [employer] Work Phone: Start: 05-17-2024 Vitamin D, 25-hydrox y measurement Leigha Wynn [employer] Work Phone: Comment on above: Vitamin D StatusDefi ciency: <20 ng/mL (50nmol/L)Insufficiency: 20-30 ng/mL (50-75 nmol/L)Sufficiency: 30-100 ng/mL (75-250 nmol/L)Toxicity: >100 ng/mL (>250 nmol/L) Start: 04-18-2024 Dual energy X-ray absorptiometry Leigha Wynn [employer] Work Phone: Start: 04-09-2024 Radioisotope scan of parathyroid Leigha Wynn [employer] Work Phone: Start: 03-28-2024 US scan of thyroid Jerel Wynn [employer] Work Phone: Start: 03-19-2024 Parathyroid hormone measurement Leigha Wynn [employer] Work Phone: Start: 03-19-2024 Vitamin D, 25-hydrox y measurement Leigha Wynn [employer] Work Phone: Comment on above: Vitamin D [...] lymph neck 1yr ANESTH NECK ORGAN 1YR/> [facility] Start: 06-04-2024 Parathyroidectomy/explor ation parathyroids EXPLORE PARATHYROID GLANDS [facility] Start: 06-04-2024 End: 06-04-2024 Parathyroid hormone measurement [facility] Start: 06-04-2024 Patient discharge [facility] Start: 10-02-2021 Colon cancer screen colonoscopy Colon cancer screen colonoscopy [place], [place] Start: 12-12-2018 End: 12-12-2018 Office Visit 12/12/2018 Office Visit Dermatology Faustina Pat, [facility] [address] [place] [address] [phone] [facility] Start: 10-28-2018 Influenza vaccination Flu vaccine (#1) [place], [place] Start: 02-01-2018 Breast cancer screen Breast cancer screen [place] Start: 2014 Shingles Vaccine (1 of 2) Shingles Vaccine (1 of 2) [place] Start: 2004 Diabetes screen Diabetes screen [place] Start: 2004 Lipid screen Lipid [place] Start: 02-28-1997 DTaP/Tdap/Td vaccine (1 - Tdap) DTaP/Tdap/Td vaccine (1 - Tdap) [place] Start: 1985 Cervical cancer screen Cervical cancer screen [place] Start: 11-13-1979 HIV screen HIV screen [place], [place] Start: 1964 Hepatitis C screen Hepatitis C screen [place], [place] Patient referral [facility] Work Phone: [facility] Immunizations Immunization Date Immunization Notes Care Provider Fa cility 02-27-1997 tetanus and diphther ia toxoids, not adsorbed, for adult use Leigha Richmond RN [facility] Payers Date Payer Category Payer Unknown 2023 Unknown [id number] 2023 Unknown [id number] 2023 Self-pay 2014 Unknown [employer] [address] xxxxxxxxxxxx 2014-Present [phone] [address] [place] [address] xxxxxxxxxxxx [id number] 2004 Unknown [id number] Unknown [id number] Unknown [id number] 04.14.830.1.986075.3.579.2.462 Unknown [id number] .1.970551.3.579.2.462 Unknown [id number] 2.16.840.1.957419.3.579.2.462 Unknown [id number] 2.840.1.462940.3.579.2.462 Unknown [id number] 2.16.840.1.312848.3.579.2.462 Unknown [id number] 2.16.840.1.514873.3.579.2.462 Unknown [id number] 2.840.1.525033.3.579.2.462 Unknown [id number] 2.840.1.210434.3.579.2.462 Unknown [id number] 2.840.1.339579.3.579.2.462 Unknown [id number] 2.840.1.148552.3.579.2.462 Unknown [id number] 2.840.1.335957.3.579.2.462 Unknown [id number] 2.840.1.678949.3.579.2.462 Unknown [id number] 2.840.1.494621.3.579.2.462 Unknown [id number] 2.840.1.568309.3.579.2.462 Unknown [id number] 2.840.1.402005.3.579.2.462 Unknown [id number] 2.840.1.965047.3.579.2.462 Unknown [id number] 2.840.1.765420.3.579.2.462 Unknown [id number] 2.840.1.630835.3.579.2.462 Unknown [id number] 2.840.1.020924.3.579.2.462 Unknown [id number] 2.840.1.526488.3.579.2.462 Unknown [id number] 2.840.1.641549.3.579.2.462 Unknown [id number] 2.16.840.1.146598.3.579.2.462 Unknown [id number] 2.16.840.1.827486.3.579.2.462 Unknown [id number] 2.16.840.1.894298.3.579.2.462 Unknown [id number] 2.16.840.1.140032.3.579.2.462 Unknown [id number] 2.16.840.1.804943.3.579.2.462 Social History Date Type Detail Facility Start: 10-10-2018 End: 05-21-2024 Tobacco smoking status NHIS Never smoker [facility] Start: 10-10-2018 Alcohol intake Yes [facility] Start: 06-25-2018 History SDOH Alcohol Frequency 2 [place] Start: 06-25-2018 History SDOH Alcohol Std Drinks 1 [place] Start: 06-25-2018 History SDOH Social Connections Zoroastrianism 3 [place] Start: 06-25-2018 History SDOH Social Connections Living [address] [place] [address] Start: 06-25-2018 History SDOH Financial 4 [place] Start: 1965 Sex Assigned At Not on file [place], [place] Start: 02-27-2020 Alcoholic beverage intake Current drinker of alcohol (finding) [facility] Start: 02-27-2020 Alcoholic beverage intake [facility] Start: 03-30-2019 Non-smoker Non-smoker [facility] Start: 05-24-2024 End: 06-13-2024 Sex Female (finding) [facility] Start: 1965 Sex Assigned At Female [facility] NEGATED: Highlighted row Not [facility] Medical Equipment Procedure Code Equipment Code Equipment Origin al Text Equipment Identifier Dates Parathyroidectomy Plant polysacc haride haemostatic agent, bioabsorbable ()[id number] LL FDA Start: 06-04-2024 Parathyroidectomy Ligation clip, metallic ()[id number] FDA Start: 06-04-2024 Goals Date Patient Goal Desired Activity /State Mental Status Date Assessment Result Facility 06-04-2024 Cognitive function Level Of Cons ciousness Awake;Drowsy [facility] Work Phone: 06-04-2024 Cognitive function Voice/Name [facility] Work Phone: Clinical Notes 09-12-2023 to 06-11-2024 Note Date & Type Note Facility 06-11-2024 Evaluation note Diagnosis Onset Date Resolution S/P parathyroidectomy acute May 8:48am [facility] Work Phone: 1(754) 198-716104-15-2025 Evaluation note* Diagnosis Onset Date Resolution Status Admit Date S/P parathyroidectomy acute May 8:48am Endometrial hyperplasia with out atypia, simple acute September 20, 2024 3:48pm Enlarged uterus acute August 3:48pm S/P parathyroidectomy acute Aug 3:48pm Obesity chronic September 20 3:48pm [facility] Work Phone: 1(179) 330-397404-08-2025 Consult note Author Victorino Elias [facility] Note Date/Time June 04, 2024 11:3 5am [facility] Medical Records Department [address] [place] [address] Anesthesia Postop Eval I 06/04/24 1134 MR#: [id number] Acct: [id number] Name: SILKE LOPEZ Rep #:[id number] : 1965 58 From: Victorino ZAVALA PCP: EDGAR Long Status:REG SD C Y Race: C Location: [place] [address] Anesthesia: Postop Eval I Current Vital Signs [...] 04/08/25 1135 <Electronically signed by Victorino Elias DIRECTOR HEDIS> Date _ Victorino Elias DIRECTOR HEDIS Cosigner Signature: Date CC: ~ Signed [facility] Work Phone: 1(298) 561-953204-08-2025 Consult note [facility] Medical Records Department [address] [place] [address] Anesthesia Postop Eval I 06/04/241133 MR#: [id number] Acct: [id number] Name: SILKE LOPEZ Rep #:[id number] : 1965 58 From: Victorino ZAVALA PCP: EDGAR Long Status:REG SD C Y Race: C Location: [place] [address] Anesthesia: Postop Eval I Current Vital Signs [...] document: Postop Eval 1 completed: Yes 06/04/241134 DIRECTOR HEDIS> Date _ Victorino Elias DIRECTOR HEDIS Cosigner Signature: Date CC: ~ Signed [facility]04-08-2025 History and physical note Author Errol Adams [facility] Note Date/Time June 04, 2024 7:17 am [facility] Medical Records Department [address] [place] [address] History & Physical Exam 06/04/24 0713 MR#: [id number] Acct: [id number] Name: SILKE LOPEZ Rep #:[id number] : 1965 58 From: Errol Turner PCP: Leigha Wynn NP-C Status:REG SD C Location: [place] [address] History and Physical Date of Admission: 06/04/24 Date of Service: 05/01/24 MR#: [id number] Acct: [id number] Name: SILKE LOPEZ Rep #: [id number] : 1965 Provider: Dr. Errol Admas MD Age/Sex: 58/F Location: [facility] Status: Signed Intake Vital Signs 03/19/2507:43 05/02/2507:20 [...] MD> Cosigner Signature (if applicable): CC: EDGAR Wynn; Dr. Errol Adams MD~ Signed [facility] Work Phone: 1(755) 555-574704-08-2025 Consult note Author Amado Alvarez [facility] Note Date/Time June 04, 2024 7:03 am [facility] Medical Records Department [address] [place] [address] Pre-Anesthesia Evaluation 06/04/24 0622 MR#: [id number] Acct: [id number] Name: SILKE LOPEZ Rep #:[id number] : 1965 58 From: Amado Alvarez MD PCP: EDGAR Long Status:REG SD C Y Race: C Location: [place] [address] ASA Classification* ASA Classification ASA Classification: 3 [...] frozen section Anesthesia History 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 Hx Hospitalization No 05/21/24 11:11 Any Problems [...] sips of water?: No PONV 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 Female Yes 05/21/24 11:11 HX of Motion [...] 05/01/24 08:20 Respiratory Assessment Respiratory Assessment - 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: Respiratory Tract Infection Hx - 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 Hx Respiratory Tract Infection No 05/21/24 11:11 STOP Sleep Apnea STOP Sleep Apnea - 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: STOP Sleep Apnea - 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 Hx Hypertension No 05/21/24 11:11 Hx Sleep [...] Tobacco Use History Tobacco Use History - 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: Tobacco Use History - 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.] MD Cosigner Signature: Date CC: ~ Signed [facility] Work Phone: 1(583) 656-141504-08-2025 History and physical note [facility] Medical Records Department [address] [place] [address] History & Physical Exam 06/04/24712 MR#: [id number] Acct: [id number] Name: SILKE LOPEZ Rep #:[id number] : 1965 58 From: Errol Turner PCP: EDGAR Long Status:REG SD C Location: [place] [address] History and Physical Date of Admission: 06/04/24 Date of Service: 05/01/24 MR#: [id number] Acct: [id number] Name: SILKE LOPEZ Rep #: [id number] : 1965 Provider: Dr. Errol Adams MD Age/Sex: 58/F Location: [facility] Status: Signed Intake Vital Signs 03/19/2507:43 05/02/2507:20 [...] again to the 20s despite daily supplementation [id number]. Contacted Endo and advised to continue present dose. Procedure details and postprocedure expectations reviewed. All questions answered. Consents confirmed. Preop PTH noted. Proceed to OR for parathyroidectomy w intraop PTH monitoring as described above. 06/04/24716 Cosigner Signature (if applicable): CC: EDGAR Wynn; Dr. Errol Adams MD~ Signed [facility]04-08-2025 [facility] Medical Records Department [address] [place] [address] History Physical Exam 06/04/24712 MR#: [id number] Acct: [id number] Name: SILKE LOPEZ Rep #: [id number] : 1965 58 From: Errol Adams MD PCP: EDGAR Long Status:[facility] Location: [place] [address] History and Physical Date of Admission: 06/04/24 Date of Service: 05/01/24 MR#: [id number] Acct: [id number] Name: SILKE LOPEZE Rep #: [id number] : 1965 Provider: Dr. Errol Adams MD Age/Sex: 58/F Location: [facility] Status: Signed Intake Vital Signs 03/19/2507:43 05/02/2507:20 [...] current occupational status: employed current occupation: [employer] Smoking Status: Never smoker alcohol intake: never [...] Hair loss, heat intol (more content not included)...[facility]04-08-2025 Consult note [facility] Medical Records Department [address] [place] [address] Pre-Anesthesia Evaluation 06/04/24 0622 MR#: [id number] Acct: [id number] Name: SILKE LOPEZ Rep #:[id number] : 1965 58 From: Amado Alvarez MD PCP: EDGAR Long Status:REG SD C Y Race: C Location: [place] [address] ASA Classification* ASA Classification ASA Classification: 3 [...] frozen section Anesthesia History 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 Hx Hospitalization No 05/21/24 11:11 Any Problems [...] sips of water?: No PONV 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 Female Yes 05/21/24 11:11 HX of Motion [...] 05/01/24 08:20 Respiratory Assessment Respiratory Assessment - 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: Respiratory Tract Infection Hx - 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 Hx Respiratory Tract Infection No 05/21/24 11:11 STOP Sleep Apnea STOP Sleep Apnea - 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: STOP Sleep Apnea - 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 Hx Hypertension No 05/21/24 11:11 Hx Sleep [...] Tobacco Use History Tobacco Use History - 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: Tobacco Use History - 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.] MD Cosigner Signature: Date CC: ~ Signed [facility]01-21-2025 Evaluation note* Diagnosis Onset Date Resolution Status Admit Date Primary hyperparathyroidism acute March 19, 2024 8:42am Screening for osteoporosis acute March 19, 2024 8:42am Thyroid eye disease acute 2024 8:42am Hyperparathyroidism resolved 2024 8:42am Primary hyperparathyroidism acute May 01, 2024 8:01am [facility] Work Phone: 1(460) 774-496901-21-2025 Evaluation note* Diagnosis Onset Date Resolution Status Admit Date Primary hyperparathyroidism acute March 19, 2024 8:42am Screening for osteoporosis acute March 19, 2024 8:42am Thyroid eye disease acute 2024 8:42am Hyperparathyroidism resolved 2024 8:42am Primary hyperparathyroidism acute May 01, 2024 8:01am S/P parathyroidectomy acute Apr 2024 8:48am [facility] Work Phone: 1(888) 128-183207-16-2024 Telephone encounter Note* Telephone Encounter - Leigha [...] Protocols used: No Contact or Duplicate Contact [id number] [id number] Miscellaneous Notes* Telephone Encounter - Leigha [place] [...] Protocols used: No Contact or Duplicate Contact [id number] [facility] (narrative)No reason for referral information availableWNationwide Children's [facility] Work Phone: Summary Purpose Family History No Family History Records Found Relationship Condition Age at Onset Recorded Date/T ange father Malignant neoplasm Unknown sister Malignant neoplasm Unknown grandfather Malignant neoplasm Unknown Advance Directives No Advanced Directives Records FoundDocuments on File Type Date Recorded 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 No May 21, 2024 11:11am Assessments Diagnosis [...] CREATED AUTHOR AUTHOR'S ORGANIZ ATION 10/05/2024 [facility] Reason for Visit (unrecogniz ed section and content) Reason Onset Date Comments [place] 09/12/2023 Care Teams (unrecognized sec tion and content) Language Interpreter Relationship Specialty Start Date End Date Eron Daigle DO [address] [place] [id number] PCP - General 02/01/16 Team Status: Active Member Role Status Dates Leigha Wynn NP, [employer] Primary Care Provider Active Team Status: Inactive Member Role Status Dates Leigha Wynn NP, [employer] Primary Care Provider Active Start: March 19, 2024 End: March 19, 2024 Leigha Wynn NP [employer] Referring Provider Active Start: March 19, 2024 [...] Member Role Status Dates Leigha Wynn NP, [employer] Primary Care Provider Active Start: March 28, 2024 End: March 28, 2024 Dr. Salo Boles MD Attending Provider Active Sta rt: March 28, 2024 End: March 28, 2024 Dr. Salo Boles MD Referring Provider Active Sta rt: March 28, 2024 End: March 28, 2024 Team Status: Inactive Member Role Status Dates Leigha Wynn [employer], [employer] Primary Care Provider Active Start: April 09, 2024 End: April 09, 2024 Dr. Salo Boles MD Attending Provider Active Sta rt: April 09, 2024 End: April 09, 2024 Dr. Salo Boles MD Referring Provider Active Sta rt: April 09, 2024 End: April 09, 2024 Team Status: Inactive Member Role Status Dates Leigha Wynn [employer], [employer] Primary Care Provider Active Start: April 18, 2024 End: April 18, 2024 Dr. Salo Boles MD Attending Provider Active Sta rt: April 18, 2024 End: April 18, 2024 Dr. Salo Boles MD Referring Provider Active Sta rt: April 18, 2024 End: April 18, 2024 Team Status: Inactive Member Role Status Dates Leigha Wynn [employer], [employer] Primary Care Provider Active Start: May 01, 2024 End: May 01, 2024 Leigha Wynn [employer], [employer] Referring Provider Active Start: May 01, 2024 End: May 01, 2024 Dr. Errol Adams MD Attending Provider Active Start: May 01, 2024 End: May 01, 2024 Team Status: Inactive Member Role Status Dates Leigha Wynn [employer], [employer] Primary Care Provider Active Start: May 17, 2024 End: May 17, 2024 Leigha Wynn [employer], [employer] Attending Provider Active Start: May 17, 2024 End: May 17, 2024 Leigha Wynn [employer], [employer] Referring Provider Active Start: May 17, 2024 End: May 17, 2024 Team Status: Active Member Role Status Dates Leigha Wynn [employer], [employer] Primary Care Provider Active Start: May 23, 2024 End: May 23, 2024 Dr. Maikol Sanchez MD Attending Provider Active S tart: May 23, 2024 End: May 23, 2024 Dr. Errol Adams MD Referring Provider Active Start: May 23, 2024 End: May 23, 2024 Team Status: Inactive Member Role Status Dates Leigha Wynn [employer], [employer] Primary Care Provider Active Start: June 04, 2024 End: June 04, 2024 Dr. Errol Adams MD Attending Provider Active Start: June 04, 2024 End: June 04, 2024 Dr. Errol Adams MD Referring Provider Active Start: June 04, 2024 End: June 04, 2024 Team Status: Active Member Role Status Dates Leigha Wynn [employer], [employer] Primary Care Provider Active Start: June 04, 2024 Dr. Errol Adams MD Attending Provider Active Start: June 04, 2024 Dr. Errol Adams MD Referring Provider Active Start: June 04, 2024 Dr. Errol Adams MD Other Provider Active Sta rt: June 04, 2024 Team Status: Inactive Member Role Status Dates Leigha Wynn [employer], [employer] Primary Care Provider Active Start: June 11, 2024 End: June 11, 2024 Leigha Wynn [employer], [employer] Referring Provider Active Start: June 11, 2024 End: June 11, 2024 Dr. Errol Adams MD Attending Provider Active Start: June 11, 2024 End: June 11, 2024 Team Status: Inactive Member Role Status Dates Leigha Wynn [employer], [employer] Primary Care Provider Active Start: June 11, 2024 End: June 11, 2024 Dr. Errol Adams MD Attending Provider Active Start: June 11, 2024 End: June 11, 2024 Dr. Errol Admas MD Referring Provider Active Start: June 11, 2024 End: June 11, 2024 Team Status: Inactive Member Role Status Dates Leigha Wynn [employer], [employer] Primary Care Provider Active Start: July 15, 2024 End: July 15, 2024 Leigha Wynn [employer], [employer] Attending Provider Active Start: July 15, 2024 End: July 15, 2024 Leigha Wynn [employer], [employer] Referring Provider Active Start: July 15, 2024 End: July 15, 2024 Team Status: Active Member Role Status Dates Leigha Wynn [employer], [employer] Primary Care Provider Active Start: July 15, 2024 Dr. Maikol Sanchez MD Attending Provider Active S tart: July 15, 2024 Team Status: Active Member Role/Relationship Status Dates Leigha Wynn [employer], [employer] Primary Care Provider Active Team Status: Inactive Member Role/Relationship Status Dates Leigha Wynn [employer], [employer] Primary Care Provider Active Start: May 17, 2024 End: May 17, 2024 Leigha Wynn [employer], [employer] Attending Provider Active Start: May 17, 2024 End: May 17, 2024 Leigha Wynn [employer], [employer] Referring Provider Active Start: May 17, 2024 End: May 17, 2024 Team Status: Active Member Role/Relationship Status Dates Leigha Wynn [employer], [employer] Primary Care Provider Active Start: May 23, 2024 End: May 23, 2024 Dr. Maikol Sanchez MD Attending Provider Active S tart: May 23, 2024 End: May 23, 2024 Dr. Errol Adams MD Referring Provider Active Start: May 23, 2024 End: May 23, 2024 Team Status: Inactive Member Role/Relationship Status Dates Leigha Wynn [employer], [employer] Primary Care Provider Active Start: June 04, 2024 End: June 04, 2024 Dr. rErol Adams MD Attending Provider Active Start: June 04, 2024 End: June 04, 2024 Dr. Errol Adams MD Referring Provider Active Start: June 04, 2024 End: June 04, 2024 Team Status: Active Member Role/Relationship Status Dates Leigha Wynn [employer], [employer] Primary Care Provider Active Start: June 04, 2024 Dr. Errol Adams MD Attending Provider Active Start: June 04, 2024 Dr. Errol Adams MD Referring Provider Active Start: June 04, 2024 Dr. Errol Adams MD Other Provider Active Sta rt: June 04, 2024 Team Status: Inactive Member Role/Relationship Status Dates Leigha Wynn [employer], [employer] Primary Care Provider Active Start: June 11, 2024 End: June 11, 2024 Leigha Wynn [employer], [employer] Referring Provider Active Start: June 11, 2024 End: June 11, 2024 Dr. Errol Adams MD Attending Provider Active Start: June 11, 2024 End: June 11, 2024 Team Status: Inactive Member Role/Relationship Status Dates Leigha Wynn [employer], [employer] Primary Care Provider Active Start: June 11, 2024 End: June 11, 2024 Dr. Errol Adams MD Attending Provider Active Start: June 11, 2024 End: June 11, 2024 Dr. Errol Adams MD Referring Provider Active Start: June 11, 2024 End: June 11, 2024 Team Status: Inactive Member Role/Relationship Status Dates Leigha Wynn [employer], [employer] Primary Care Provider Active Start: July 15, 2024 End: July 15, 2024 Leigha Wynn [employer], [employer] Attending Provider Active Start: July 15, 2024 End: July 15, 2024 Leigha Wynn [employer], [employer] Referring Provider Active Start: July 15, 2024 End: July 15, 2024 Team Status: Active Member Role/Relationship Status Dates Leigha Wynn [employer], [employer] Primary Care Provider Active Start: July 15, 2024 Dr. Maikol Sanchez MD Attending Provider Active S tart: July 15, 2024 Team Status: Inactive Member Role/Relationship Status Dates Leigha Wynn [employer], [employer] Primary Care Provider Active Start: September 03, 2024 End: September 03, 2024 Leigha Wynn [employer], [employer] Attending Provider Active Start: September 03, 2024 End: September 03, 2024 Leigha Wynn [employer], [employer] Referring Provider Active Start: September 03, 2024 End: September 03, 2024 Team Status: Active Member Role/Relationship Status Dates Leigha Wynn [employer], [employer] Primary Care Provider Active Start: May 23, 2024 End: May 23, 2024 Dr. Maikol Sanchez MD Attending Provider Active S tart: May 23, 2024 End: May 23, 2024 Dr. Errol Adams MD Referring Provider Active Start: May 23, 2024 End: May 23, 2024 Team Status: Inactive Member Role/Relationship Status Dates Leigha Wynn [employer], [employer] Primary Care Provider Active Start: June 04, 2024 End: June 04, 2024 Dr. Errol Adams MD Attending Provider Active Start: June 04, 2024 End: June 04, 2024 Dr. Errol Adams MD Referring Provider Active Start: June 04, 2024 End: June 04, 2024 Team Status: Active Member Role/Relationship Status Dates Leigha Wynn [employer], [employer] Primary Care Provider Active Start: June 04, 2024 Dr. Errol Adams MD Attending Provider Active Start: June 04, 2024 Dr. Errol Adams MD Referring Provider Active Start: June 04, 2024 Dr. Errol Adams MD Other Provider Active Sta rt: June 04, 2024 Team Status: Inactive Member Role/Relationship Status Dates Leigha Wynn [employer], [employer] Primary Care Provider Active Start: June 11, 2024 End: June 11, 2024 Leigha Wynn [employer], [employer] Referring Provider Active Start: June 11, 2024 End: June 11, 2024 Dr. Errol Adams MD Attending Provider Active Start: June 11, 2024 End: June 11, 2024 Team Status: Inactive Member Role/Relationship Status Dates Leigha Wynn [employer], [employer] Primary Care Provider Active Start: June 11, 2024 End: June 11, 2024 Dr. Errol Adams MD Attending Provider Active Start: June 11, 2024 End: June 11, 2024 Dr. Errol Adams MD Referring Provider Active Start: June 11, 2024 End: June 11, 2024 Team Status: Inactive Member Role/Relationship Status Dates Leigha Wynn [employer], [employer] Primary Care Provider Active Start: July 15, 2024 End: July 15, 2024 Leigha Wynn [employer], [employer] Attending Provider Active Start: July 15, 2024 End: July 15, 2024 Leigha Wynn [employer], [employer] Referring Provider Active Start: July 15, 2024 End: July 15, 2024 Team Status: Active Member Role/Relationship Status Dates Leigha Wynn [employer], [employer] Primary Care Provider Active Start: July 15, 2024 Dr. Maikol Sanchez MD Attending Provider Active S tart: July 15, 2024 Team Status: Inactive Member Role/Relationship Status Dates Leigha Wynn [employer], [employer] Primary Care Provider Active Start: September 03, 2024 End: September 03, 2024 Leigha Wynn [employer], [employer] Attending Provider Active Start: September 03, 2024 End: September 03, 2024 Leigha Wynn [employer], [employer] Referring Provider Active Start: September 03, 2024 End: September 03, 2024 Team Status: Inactive Member Role/Relationship Status Dates Leigha Wynn [employer], [employer] Primary Care Provider Active Start: September 20, 2024 End: September 20, 2024 Leigha Wynn [employer], [employer] Referring Provider Active Start: September 20, 2024 End: September 20, 2024 Dr. So Jamison DO Attending Provider Activ e Start: September 20, 2024 End: September 20, 2024 Team Status: Inactive Member Role/Relationship Status Dates Leigha Wynn [employer], [employer] Primary Care Provider Active Start: June 04, 2024 End: June 04, 2024 Dr. Errol Adams MD Attending Provider Active Start: June 04, 2024 End: June 04, 2024 Dr. Errol Adams MD Referring Provider Active Start: June 04, 2024 End: June 04, 2024 Team Status: Active Member Role/Relationship Status Dates Leigha Wynn [employer], [employer] Primary Care Provider Active Start: June 04, 2024 Dr. Errol Adams MD Attending Provider Active Start: June 04, 2024 Dr. Errol Adams MD Referring Provider Active Start: June 04, 2024 Dr. Errol Adams MD Other Provider Active Sta rt: June 04, 2024 Team Status: Inactive Member Role/Relationship Status Dates Leigha Wynn [employer], [employer] Primary Care Provider Active Start: June 11, 2024 End: June 11, 2024 Leigha Wynn [employer], [employer] Referring Provider Active Start: June 11, 2024 End: June 11, 2024 Dr. Errol Adams MD Attending Provider Active Start: June 11, 2024 End: June 11, 2024 Team Status: Inactive Member Role/Relationship Status Dates Leigha Wynn [employer], [employer] Primary Care Provider Active Start: June 11, 2024 End: June 11, 2024 Dr. Errol Adams MD Attending Provider Active Start: June 11, 2024 End: June 11, 2024 Dr. Errol Adams MD Referring Provider Active Start: June 11, 2024 End: June 11, 2024 Team Status: Inactive Member Role/Relationship Status Dates Leigha Wynn [employer], [employer] Primary Care Provider Active Start: July 15, 2024 End: July 15, 2024 Leigha Wynn [employer], [employer] Attending Provider Active Start: July 15, 2024 End: July 15, 2024 Leigha Wynn [employer], [employer] Referring Provider Active Start: July 15, 2024 End: July 15, 2024 Team Status: Active Member Role/Relationship Status Dates Leigha Wynn NP, [employer] Primary Care Provider Active Start: July 15, 2024 Dr. Maikol Sanchez MD Attending Provider Active S tart: July 15, 2024 Team Status: Inactive Member Role/Relationship Status Dates Leigha Wynn [employer], [employer] Primary Care Provider Active Start: September 03, 2024 End: September 03, 2024 Leigha Wynn [employer], [employer] Attending Provider Active Start: September 03, 2024 End: September 03, 2024 Leigha Wynn [employer], [employer] Referring Provider Active Start: September 03, 2024 End: September 03, 2024 Team Status: Inactive Member Role/Relationship Status Dates Leigha Wynn NP, [employer] Primary Care Provider Active Start: September 20, [...] BE BASED ON THE PRIMARY CLINICAL RECORDS. [employer] [facility]. provides no warranty or guarantee of the accuracy or completeness of information in this document.
[2024-10-11 22:55] LABS: Alcohol, Blood (Medical)-Serum < 10.1 mg/dL (<=10.0)
[2024-10-11 23:21] LABS: Troponin T High Sens 4 HR 7 ng/L (<=14)
[2024-10-12] VITALS (7 sets, daily range): BP systolic 96–103; BP diastolic 49–63; PULSE 47–62; RESP 16–18; TEMP 36.3–37; O2SAT 98–100; BMI 39.7
--- NOTE | 2024-10-12 00:28 | EKG12_ITS ---
Test Reason : CP Blood Pressure : */* mmHG Vent. Rate : 41 BPM Atrial Rate : 41 BPM P-R Int : 164 ms QRS Dur : 100 ms QT Int : 506 ms P-R-T Axes : 49 -5 41 degrees QTcB Int : 417 ms Marked sinus bradycardia Cannot rule out Anterior infarct , age undetermined Abnormal ECG When compared with ECG of 11-Oct-2024 17:39, MANUAL COMPARISON REQUIRED DATA IS UNCONFIRMED Confirmed by YOUNG HAUSER, LUCIE ([id number]), commercial production editor RAY HAUSER ([id number]) on 10/15/2024 6:14:52 AM Referred By: Confirmed By: LUCIE VIDAL MD
[2024-10-12 02:04] LABS: Troponin T High Sensitivity 6 ng/L (<=14)
[2024-10-12 05:00] LABS: Troponin T High Sens 2 HR < 6 ng/L (<=14)
[2024-10-12 06:31] LABS: Cholesterol 194 mg/dL (<=200); Low Density Lipoprotein Calc. 147 mg/dL; Triglycerides 37 mg/dL; Very Low Density Lipoprotein 7 mg/dL (5-40); cholesterol:hdl ratio screen 4.87
[2024-10-12 07:03] LABS: FOLATES,SERUM (FOLIC ACID) 10.50 ng/mL (4.60-34.80)
--- NOTE | 2024-10-12 07:47 | PCM.PN.HOSP ---
Reason for Visit Chief Complaint: Slurred Speech and Visual Changes. Objective Data Objective Data Vital Signs: Vital Signs Temp Pulse Resp BP Pulse Ox O2 Del Method 97.4 F L 47 L 18 97/53 L 99 Room Air 10/12/24 04:30 10/12/24 04:30 10/12/24 04:30 10/12/24 04:30 10/12/24 04:30 10/12/24 04:30 Oxygen Delivery Method Room Air Weight: 224 lb 8.653 oz Body Mass Index (BMI) 39.7 Intake & Output: Intake and Output for Last 24 Hours 10/10/24 10/11/24 10/12/24 23:59 23:59 23:59 Intake Total 120 / 120 Balance 120 / 120 Lab / Micro Data 10/11/24 17:30 10/11/24 17:30 Labs: Laboratory Results - last 24 hr 10/11/24 17:21: POC Glucose 139 H 10/11/24 17:30: WBC 5.8, RBC 4.21, Hgb 13.3, Hct 40.3, MCV 95.7, MCH 31.6, MCHC 33.0, RDW Std Deviation 46.7 H, RDW Coeff of Luisa 13.3, Plt Count 288, MPV 10.9, Immature Gran % (Auto) 0.300, Neut % (Auto) 62.1, Lymph % (Auto) 27.4, Mcdonough % (Auto) 7.1, Eos % (Auto) 2.4, Baso % (Auto) 0.7, Absolute Neuts (auto) 3.6, Absolute Lymphs (auto) 1.59, Nucleated RBC % 0, PT 13.8, INR 1.0, APTT 34.4, Sodium 141, Potassium 4.0, Chloride 106, Carbon Dioxide 24.3, Anion Gap 11, BUN 28 H, Creatinine 0.92, Estim Creat Clear Calc 74.73, Est GFR (MDRD) Non-Af 72, BUN/Creatinine Ratio 30.0 H, Glucose 109 H, Calcium 9.2, Troponin T High Sens 10 10/11/24 19:26: Troponin T Hi Sens 2 Hr 7 10/11/24 22:09: Hemoglobin A1c 5.5, Troponin T Hi Sens 4Hr 7, Serum Folate 10.50, TSH 1.410, Ethyl Alcohol < 10.1 10/12/24 01:33: Troponin T High Sens 6 D 10/12/24 03:50: Troponin T Hi Sens 2 Hr < 6 10/12/24 05:43: Triglycerides 37, Cholesterol 194, LDL Cholesterol, Calc 147, VLDL Cholesterol 7, HDL Cholesterol 40, Cholesterol/HDL Ratio 4.87 Radiography Diagnostic Testing: Radiology Impression Brain CT 10/11/24 17:22 IMPRESSION: No intracranial hemorrhage. No mass effect or midline shift. Reading [facility] Head/Neck CTA 10/11/24 19:10 IMPRESSION: Normal CTA of the head and neck. Reading Location: [facility] Rhythm Strip Rhythm Strip: Sinus Rhythm Rate: 62 Ectopy: None Physical Exam Narrative Seen and examined. Patient had headache bilateral mainly in frontal region for about 2 days prior to ED visit. She also complained of lolly shaped visual abnormality/blurry vision and speech abnormality. Headache is much better. Visual abnormality and speech abnormality has resolved Physical exam General: Alert, Oriented x3, Cooperative HEENT: Atraumatic, PERRLA, EOMI, Normocephalic. Oral: No Gingival or Mucosal Lesions/ Ulcerations Neck: Supple, No JVD, Negative Carotid Bruits Chest wall/Lungs: Air entry diminished in bilateral lung bases. No crepitation/rhonchi Cardiovascular: Regular rate and rhythm, Normal S1,S2, No M/G/R Abdomen: Bowel Sounds Present, Soft, Non Tender, Non-Distended : No dysuria. No renal angle tenderness. No suprapubic tenderness. Extremities: No edema, Capillary Refill Less than 3 Seconds Skin: No rashes, No breakdown Musculoskeletal: No Tenderness to Palpation of Joints or Extremities Neurological: Cranial nerves II-XII grossly intact, DTR 2+/4. No acute focal neurological deficit. NIH scale 0. Psych/Mental Status: Normal Affect, Appropriate. Assessment & Plan Assessment/Plan (1) Brain TIA: (2) Slurred speech: (3) Headache: QUALIFIERS: Headache chronicity pattern: acute headache Headache type: unspecified Intractability: not intractable Qualified Code(s): R51.9 - Headache, unspecified (4) Visual disturbance: (5) Dehydration: (6) Obesity (BMI 30-39.9): PLAN: Plan 58-year-old female admitted with visual changes like spots or light flashes. She is also having trouble putting words together/speech difficulties and was hard to understand. She was not complaining of headache. Visual and speech changes resolved. Related to stroke. Symptoms started at 1:30 PM. As per teleneurologist patient still had headache. NIH stroke scale 0. Clinical impression was either TIA versus complicated migraine. No thrombolytic recommendation because of onset amnesia. 1. TIA vs CVA; with transient slurred speech, visual disturbance and headache - Admit to PCU under observation status. Check MRI of the brain to evaluate for evidence of CVA. Check echocardiogram to evaluate LVEF. Start clopidogrel (in light of listed allergy to aspirin) plus statin and check TSH, B12, Folate, HgbA1c, Lipid Profile, UDS and HIEU. Give ondansetron IV prn for nausea and vomiting. Give acetaminophen prn for [id number] (level 1-5/10) pain or fever. Give oxycodone orally prn for severe (level 6-10/10) pain. Finally, we will consult [facility] teleneurology to see this patient on rounds in the a.m. further recommendations help appreciated advancement. 2. Dehydration; with BUN/creatinine ratio of 30 complicating #1 - Gently volume resuscitate and recheck renal indices in AM to confirm improvement. 3. Obesity (class II); with BMI of 39.5 this admission compounding #1 & #2 - Weight loss will be recommended. Check TSH. 4. DM-2; currently not on treatment - ADA diet if patient passes bedside allow evaluation. FSBS q. AC/HS plus SSI. Check HgbA1c to objectively evaluate quality of diabetic control. 5. History of iodine allergy - Noted as she was premedicated with methylprednisolone IV plus prn IV diphenhydramine. 6. History of chronic lower extremity dermatitis with ulceration - Noted with patient having no rash or swelling in her LE's at this time. 7. Psoriasis - Stable and without evidence of acute flare. 8. PVD - Noted. 9. History of hyperparathyroidism; s/p parathyroidectomy - Noted. 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 11. OA; on glucosamine - Give acetaminophen prn for pain or fever. 12. DVT prophylaxis - Enoxaparin 40 mg sq daily plus SCD's. Laboratory Results 10/11/24 17:21: POC Glucose 139 H 10/11/24 17:30: WBC 5.8, RBC 4.21, Hgb 13.3, Hct 40.3, MCV 95.7, MCH 31.6, MCHC 33.0, RDW Std Deviation 46.7 H, RDW Coeff of Luisa 13.3, Plt Count 288, MPV 10.9, Immature Gran % (Auto) 0.300, Neut % (Auto) 62.1, Lymph % (Auto) 27.4, Mcdonough % (Auto) 7.1, Eos % (Auto) 2.4, Baso % (Auto) 0.7, Absolute Neuts (auto) 3.6, Absolute Lymphs (auto) 1.59, Nucleated RBC % 0, PT 13.8, INR 1.0, APTT 34.4, Sodium 141, Potassium 4.0, Chloride 106, Carbon Dioxide 24.3, Anion Gap 11, BUN 28 H, Creatinine 0.92, Estim Creat Clear Calc 74.73, Est GFR (MDRD) Non-Af 72, BUN/Creatinine Ratio 30.0 H, Glucose 109 H, Calcium 9.2, Troponin T High Sens 10 10/11/24 19:26: Troponin T Hi Sens 2 Hr 7 10/11/24 22:09: Hemoglobin A1c 5.5, Troponin T Hi Sens 4Hr 7, Serum Folate 10.50, TSH 1.410, Ethyl Alcohol < 10.1 10/12/24 01:33: Troponin T High Sens 6 D 10/12/24 03:50: Troponin T Hi Sens 2 Hr < 6 10/12/24 05:43: Troponin T Hi Sens 4Hr Pending, Triglycerides 37, Cholesterol 194, LDL Cholesterol, Calc 147, VLDL Cholesterol 7, HDL Cholesterol 40, Cholesterol/HDL Ratio 4.87, Vitamin B12 Pending 10/12/24 06:00: Urine Opiates Screen Pending, U Buprenorphine Qual Pending, Ur Oxycodone Screen Pending, Urine Methadone Screen Pending, Urine Fentanyl Screen Pending, Ur Barbiturates Screen Pending, Ur Phencyclidine Scrn Pending, Ur Amphetamines Screen Pending, U Benzodiazepines Scrn Pending, Urine Cocaine Screen Pending, U Cannabinoids Screen Pending Clinical Impression(s) from Imaging Studies Brain CT 10/11/24 17:22 IMPRESSION: No intracranial hemorrhage. No mass effect or midline shift. Reading [facility] Head/Neck CTA 10/11/24 19:10 IMPRESSION: Normal CTA of the head and neck. Reading Location: [id number] NIHSS NIHSS Nursing Documentation NIHSS Nursing Documentation: NIHSS: Ischemic Stroke/TIA Start: 10/11/24 21:43 Text: For PCU Patients: NIH and Neuro Check every 4 Status: Active hours, PRN and with change in RN caregiver. Freq: [id number] Protocol: Activity Type Activity Date Activity User E-sign Co-sign Detail Recorded Client Recorded Date Recorded By Document 10/12/24 04:30 DC [id number] 10/12/24 04:36 DC 10/12/24 04:30 NIH Stroke Scale [NIHSS] A score of 0 is normal or asymptomatic . Total possible score is 42. Inpatient: RN or Physician to activate a stroke alert for onset of new stroke symptoms or with NIHSS increase >/= 3 points. Following change in neurological status, NIHSS will be performed per physician order or more frequently PRN. -1a. Level of Consciousness 0 - Alert; keenly responsive -1b. LOC Questions 0 - Answers BOTH questions correctly -1c. LOC Commands 0 - Performs BOTH tasks correctly -2. Best Gaze 0 - Normal -3. Visual 0 - No visual loss -4. Facial Palsy 0 - Normal symmetrical movements -5a. Left Arm 0 - No drift; arm holds 90 ( or 45) degrees for full 10 seconds -5b. Right Arm 0 - No drift; arm holds 90 ( or 45) degrees for full 10 seconds -6a. Left Leg 0 - No drift; leg holds 30- degree position for full 5 seconds -6b. Right Leg 0 - No drift; leg holds 30- degree position for full 5 seconds -7. Limb Ataxia 0 - Absent -8. Sensory 0 - Normal; no sensory loss -9. Best Language 0 - No aphasia; normal -10. Dysarthria 0 - Normal -11. Extinction and Inattention 0 - No abnormality -Total 0 Query Text:A score of 0 is normal or asymptomatic. Total possible score is 42 . ED: Notify Physician for NIHSS increase by > / = 3 points. Inpatient: RN or Physician to activate a stroke alert for NIHSS increase of > / = 3 points. Coma Scale [Assess] -Eye Opening Spontaneous -Motor Obeys Commands -Verbal Oriented [Total] -Coma Scale Total 15
[2024-10-12 08:22] LABS: Barbiturate Urine NEGATIVE (< 200 ng/mL); Benzodiazepine Urine NEGATIVE (< 200 ng/mL); PCP Urine NEGATIVE (< 25 ng/mL); THC Urine NEGATIVE (< 50 ng/mL)
[2024-10-12 08:48] LABS: Troponin T High Sens 4 HR 7 ng/L (<=14)
--- NOTE | 2024-10-12 08:55 | NURSING ---
VS and NIH late d/t ECHO at bedside
--- NOTE | 2024-10-12 09:00 | MRI_ITS ---
PROCEDURE: BRAIN WITHOUT CONTRAST 10/12/2024 REASON FOR EXAM: EVALUATE FOR CVA. TECHNIQUE: BRAIN WITHOUT CONTRAST Multiplanar and multisequence images were obtained. FINDINGS: BRAIN: No restricted diffusion to indicate acute infarction. No intracranial mass or hemorrhage. No midline shift or extra-axial fluid collection. No sulcal effacement. No cerebellar tonsillar ectopia. The central arterial and venous flow voids are patent. VENTRICLES: No hydrocephalus. ORBITS: The orbits are normal. SINUSES AND MASTOIDS: The sinuses and mastoid air cells are clear. BONES: No focal osseous lesion. MRI/Brain without Contrast IMPRESSION: No acute intracranial abnormality. Reading Location: [id number]
[2024-10-12 09:19] LABS: Vitamin B12 446 pg/mL (180-914)
--- NOTE | 2024-10-12 10:27 | CON.PCM.NE_ITS ---
Assessment and Plan: Neuro Assessment/Plan DENISE DEL CID is a 58 F with a past medical history of chronic lower extremity dermatitis with ulceration, psoriasis, PVD, history of DM-2;, being evaluated by Teleneurology for vision obscurations and change in speech. OVerall symptoms consistent with complex migraine. Unlikely TIA given the progression of symptoms and type she had and likely that she has migraines at baseline. Diagnosis: complex migraine No further workup at this time I personally attended this patient and spent a total time of 45minutes evaluating this patient including clinical assessment, review of chart, medical history imaging, and determining appropriate treatment and workup. HPI Consult Data Date of Consult: 10/12/24 HPI Narrative HPI Narrative: DENISE DEL CID, is a 58 F with a past medical history of obesity (class II); with BMI of 39.5 this admission, chronic lower extremity dermatitis with ulceration, psoriasis, PVD, history of DM-2; currently not on treatment, history of hyperparathyroidism; s/p parathyroidectomy, thyroid eye disease, history of iodine allergy and OA; on glucosamine who presents to [facility] ER complaining of slurred speech and visual changes. Mrs. Del Cid reports her symptoms began approximately 1:30 PM earlier today while she was at the library when she began to have visual disturbance with what she describes as a lolly-like shape that seemed to come from the Right of her visual field followed by a ~7/10 headache that began on the Right-side of her head. She then drove herself home and when she saw her when he noticed abnormal speech which made it difficult to understand her so he decided to bring her in for further evaluation and treatment for presumed CVA. She states her visual disturbance and slurred speech have resolved and her headache has moved to the Left-side of her head and is currently ~2/10. She denies history of TIA/CVA, head trauma, similar previous episodes, recent illness or recent medication changes. She also denies related fever, chills, runny nose, sore throat, ear pain, SOB, cough, chest pain, palpitations, heart racing, dysuria, hematuria or rash but she does admit to recent headache. In the ER she underwent a head CT without contrast that revealed no ICH, mass effect or midline shift followed by CTA of the head and neck with IV contrast that showed common origin of Left common carotid artery and Right innominate artery with no evidence of aneurysm or dissection complicated by laboratory evidence of Dehydration; with BUN/creatinine ratio of 30 with clinical evidence of TIA vs CVA; with transient visual disturbance with slurred speech and she was then admitted to the PCU under observation status for ongoing care for a stay that is expected to expected to be less than 2 midnights. Neurologic History Symptoms lasted for 2 hrs - the diamon shape in her vision came and stayed, the lolly shape looked bright and wazy. RUYB was bilateral. Pt endrosed a headache the night before and suddenly got the headache the next day at the library. She will get stress headaches, twice a month and will usually be bilaterally behind the eyes and the temples and be throbbing. Does not get senstive to the light or nausea with normal headaches - occasionally has had the nausea but rarely she later states. Yesterday she was feeling sensitive to the light, slight nausea. The headache lasted until 2 hrs ago and lasted all night. When home and having difficulty speaking and kept having paraphasias and having some difficulty saying it. Would happen only occasionally and still could understand her. The speaking difficulty lasted 2-3 hrs. Symptoms improved after her headache got a little better. No numbness no weakness no diplopia with these symptoms. No new medications, no change in medications. Neurologic Exam -? General: Laying comfortably in bed; in no acute distress. -? HENT: Normal oropharynx and mucosa. Normal external appearance of ears and nose. Exophthalmos. -? Neck: Supple, no pain or tenderness -? CV:? No peripheral edema. -? Pulmonary:? Normal respiratory effort. -? Ext: No cyanosis, edema, or deformity -? Skin: No rash. Normal palpation of skin.? -? Musculoskeletal: full range of motion; no joint tenderness. Normal digits and nails by inspection. No clubbing. -? NEURO: -? Mental Status: The patient was alert and oriented to time, place, and person. Normal recent/remote memory, concentration, and general fund of knowledge. -? Language: speech is clear.? Naming, repetition, fluency, and comprehension intact. -? Cranial Nerves: PERRL 2 mm/brisk. EOMI, visual ro full, no facial asymmetry, facial sensation intact, hearing intact, tongue midline, no evidence of atrophy or fibrillations. -? Motor: normal bulk, tone, and strength throughout. No pronator drift or satelliting. Upper and lower extremities equal bilaterally. -? Detailed strength exam as performed by the nurse/GERARDO and witnessed by the physician: l R L SA 5 5 EE EF 5 5 WE WF Paraeducator 5 5 HF KE KF 5 5 DF 5 5 PF -? Tone: is normal and bulk is normal -? Sensation- Intact to light touch bilaterally -? Coordination: No dysmetria on [id number], finger follow finger or [id number]. -? Gait- Gait initiation was normal. Narrow base with good heel strike and stride length was observed during ambulation. Turns were in stride. [facility] Medical History Wears glasses Arthritis Scoliosis Non-smoker History of edema Thyroid eye disease Primary hyperparathyroidism Hyperparathyroidism Screening for osteoporosis Home Medications ?Medication ?Instructions ?Recorded ?Last Taken ?Type glucosamine HCl 500 mg tablet 500 mg PO QDAY 09/20/24 10/11/24 13:30 History 500 mg ascorbic acid (vitamin C) 500 mg 500 mg PO DAILY 10/1110/11/24 13:30 History chewable tablet (Acerola C) ergocalciferol (vitamin D2) 1,250 1,250 mcg PO QWEEK 0 10/11/24 10/05/24 History mcg (50,000 unit) capsule Allergy/AdvReac Type Severity Reaction Status Date / Time aspirin (ASA) Allergy Intermediate Swelling Verified 09/20/24 15:52 Iodinated Contrast Media Allergy Mild Hives Verified 09/20/24 15:52 (contrast dye - iodinated) levofloxacin (From Levaquin) Allergy Other Verified 09/20/24 15:52 naproxen Allergy Other Verified 09/20/24 15:52 Penicillins Allergy Other Verified 09/20/24 15:52 Family History Father Cancer Prostate Sister Cancer cholangiocarcinoma- Bile duct Grandfather Cancer Prostate Surgical History S/P parathyroidectomy S/P D&C (status post dilation and curettage) S/P appendectomy Social History household members: spouse current occupational status: employed current occupation: [employer] Smoking Status: Never smoker alcohol intake: never substance use type: does not use seatbelt use: always do you feel safe at home: Yes additional social history: - [employer]- Retired Vital Signs Vital Signs Vital Signs: 10/11/24 17:16 10/11/24 17:22 10/11/24 17:22 Temperature 98.1 F Temperature Source Temporal Pulse Rate 70 59 L Pulse Strength Respiratory Rate 16 16 Respiratory Effort Respiratory Depth Respiratory Pattern Blood Pressure 101/53 L 109/64 Blood Pressure Mean 69 79 Blood Pressure Source Blood Pressure Position Blood Pressure Location Pulse Ox 100 99 99 Oxygen Delivery Method Room Air Room Air Room Air 10/11/24 17:52 10/11/24 18:52 10/11/24 19:30 Temperature Temperature Source Pulse Rate 58 L 57 L 49 L Pulse Strength Respiratory Rate 16 16 18 Respiratory Effort Respiratory Depth Respiratory Pattern Blood Pressure 114/73 105/53 L 106/50 L Blood Pressure Mean 86 70 68 Blood Pressure Source Blood Pressure Position Blood Pressure Location Pulse Ox 99 98 97 Oxygen Delivery Method Room Air Room Air Room Air 10/11/24 19:30 10/11/24 20:00 10/11/24 20:30 Temperature 98.2 F Temperature Source Pulse Rate 49 L 50 L 50 L Pulse Strength Respiratory Rate 18 18 18 Respiratory Effort Respiratory Depth Respiratory Pattern Blood Pressure 106/50 L 109/59 L 103/63 Blood Pressure Mean 68 75 76 Blood Pressure Source Blood Pressure Position Blood Pressure Location Pulse Ox 97 96 96 Oxygen Delivery Method Room Air Room Air 10/11/24 21:00 10/11/24 22:10 10/11/24 22:17 Temperature 97.8 F Temperature Source Oral Pulse Rate 48 L 48 L Pulse Strength Normal (2+) Respiratory Rate 18 18 Respiratory Effort Respiratory Depth Respiratory Pattern Blood Pressure 107/67 103/61 Blood Pressure Mean 80 75 Blood Pressure Source Monitor Blood Pressure Position Semi-Fowlers Blood Pressure Location Right Arm Pulse Ox 96 97 Oxygen Delivery Method Room Air Room Air 10/11/24 22:21 10/12/24 00:36 10/12/24 00:49 Temperature 97.7 F L Temperature Source Oral Pulse Rate 47 L Pulse Strength Respiratory Rate 18 Respiratory Effort Normal Non-Labored Normal Non-Labored Respiratory Depth Normal Normal Respiratory Pattern Normal Normal Blood Pressure 103/63 Blood Pressure Mean 76 Blood Pressure Source Monitor Blood Pressure Position Semi-Fowlers Blood Pressure Location Right Arm Pulse Ox 99 Oxygen Delivery Method Room Air Room Air Room Air 10/12/24 00:50 10/12/24 04:30 10/12/24 04:30 Temperature 97.4 F L Temperature Source Oral Pulse Rate 47 L Pulse Strength Respiratory Rate 18 Respiratory Effort Normal Non-Labored Respiratory Depth Normal Respiratory Pattern Normal Blood Pressure 97/53 L Blood Pressure Mean 67 Blood Pressure Source Monitor Blood Pressure Position Semi-Fowlers Blood Pressure Location Left Arm Pulse Ox 98 99 Oxygen Delivery Method Room Air Room Air Room Air 10/12/24 08:52 10/12/24 08:54 10/12/24 08:55 Temperature 98.6 F Temperature Source Oral Pulse Rate 47 L 47 L Pulse Strength Normal (2+) Respiratory Rate 16 Respiratory Effort Normal Non-Labored Respiratory Depth Normal Respiratory Pattern Normal Blood Pressure 99/49 L Blood Pressure Mean 65 Blood Pressure Source Monitor Blood Pressure Position Sitting Blood Pressure Location Right Arm Pulse Ox 100 100 Oxygen Delivery Method Room Air Room Air 10/12/24 09:36 Temperature Temperature Source Pulse Rate Pulse Strength Respiratory Rate Respiratory Effort Respiratory Depth Respiratory Pattern Blood Pressure Blood Pressure Mean Blood Pressure Source Blood Pressure Position Blood Pressure Location Pulse Ox 98 Oxygen Delivery Method Room Air Weight Weight: 101.85 kg Body Mass Index (BMI) 39.7 EEG Results Procedure Details EEG Procedure Details: DENISE DEL CID is a 58 year old F with a past medical history of , who presents for evaluation of Electroencephalogram on DATE at TIME Lab / Micro Data 10/11/24 17:30 10/11/24 17:30 Labs: Laboratory Results - last 24 hr 10/11/24 17:21: POC Glucose 139 H 10/11/24 17:30: WBC 5.8, RBC 4.21, Hgb 13.3, Hct 40.3, MCV 95.7, MCH 31.6, MCHC 33.0, RDW Std Deviation 46.7 H, RDW Coeff of Luisa 13.3, Plt Count 288, MPV 10.9, Immature Gran % (Auto) 0.300, Neut % (Auto) 62.1, Lymph % (Auto) 27.4, Thayer % (Auto) 7.1, Eos % (Auto) 2.4, Baso % (Auto) 0.7, Absolute Neuts (auto) 3.6, Absolute Lymphs (auto) 1.59, Nucleated RBC % 0, PT 13.8, INR 1.0, APTT 34.4, Sodium 141, Potassium 4.0, Chloride 106, Carbon Dioxide 24.3, Anion Gap 11, BUN 28 H, Creatinine 0.92, Estim Creat Clear Calc 74.73, Est GFR (MDRD) Non-Af 72, B UN/Creatinine Ratio 30.0 H, Glucose 109 H, Calcium 9.2, Troponin T High Sens 10 10/11/24 19:26: Troponin T Hi Sens 2 Hr 7 10/11/24 22:09: Hemoglobin A1c 5.5, Troponin T Hi Sens 4Hr 7, Serum Folate 10.50, TSH 1.410, Ethyl Alcohol < 10.1 10/12/24 01:33: Troponin T High Sens 6 D 10/12/24 03:50: Troponin T Hi Sens 2 Hr < 6 10/12/24 05:43: Troponin T Hi Sens 4Hr 7, Triglycerides 37, Cholesterol 194, LDL Cholesterol, Calc 147, VLDL Cholesterol 7, HDL Cholesterol 40, Cholesterol/HDL Ratio 4.87, Vitamin B12 446 10/12/24 06:00: Urine Opiates Screen NEGATIVE, Ur Oxycodone Screen NEGATIVE, Urine Methadone Screen NEGATIVE, Urine Fentanyl Screen NEGATIVE, Ur Barbiturates Screen NEGATIVE, Ur Phencyclidine Scrn NEGATIVE, Ur Amphetamines Screen NEGATIVE, U Benzodiazepines Scrn NEGATIVE, Urine Cocaine Screen NEGATIVE, U Cannabinoids Screen NEGATIVE Rhythm Strip Rhythm Strip: Sinus Rhythm Rate: 62 Ectopy: None Imaging Radiology Impression Brain CT 10/11/24 17:22 IMPRESSION: No intracranial hemorrhage. No mass effect or midline shift. [facility] Head/Neck CTA 10/11/24 19:10 IMPRESSION: Normal CTA of the head and neck. Reading Location: [id number] Brain MRI 10/12/24 09:00 IMPRESSION: No acute intracranial abnormality. Reading Location: [id number] Active Medications Active Medications Active Medications: Current Medications Generic Name Dose Route Start Last Admin Trade Name Freq PRN Reason Stop Dose Admin Atorvastatin Calcium 20 mg 10/11/24 23:00 10/11/24 23:11 Atorvastatin Calcium 20 Mg Tablet PO 20 mg QHS ALCIDES Administration Clopidogrel Bisulfate 75 mg 10/11/24 21:43 10/12/24 09:03 Clopidogrel Bisulfate 75 Mg Tablet PO 75 mg DAILY ALCIDES Administration Enoxaparin Sodium 40 mg 10/12/24 10:00 10/12/24 09:03 Enoxaparin 40 Mg/0.4 Ml Syringe SC 40 mg DAILY ALCIDES Administration Sodium Chloride 250 mls @ 15 mls/hr 10/11/24 21:53 IV .[id number] PRN Saline Flush Sodium Chloride 250 mls @ 15 mls/hr 10/11/24 21:53 IV .[id number] PRN Additional IVPB Infusion Labetalol HCl 20 mg 10/11/24 17:22 Labetalol 20 Mg/4 Ml Vial IV 10/12/24 17:22 X1 PRN BLOOD PRESSURE Oxycodone HCl 5 mg 10/11/24 21:43 Oxycodone 5 Mg Tablet PO Q6H PRN PRN Pain Score 6-10 Sodium Chloride 10 - 40 ml 10/11/24 21:53 0.9% Saline Lock 10 Ml Syringe IV UD PRN SALINE FLUSH NIHSS NIHSS Nursing Documentation NIHSS Nursing Documentation: NIHSS: Ischemic Stroke/TIA Start: 10/11/24 21:43 Text: For PCU Patients: NIH and Neuro Check every 4 Status: Active hours, PRN and with change in RN caregiver. Freq: [id number] Protocol: Activity Type Activity Date Activity User E-sign Co-sign Detail Recorded Client Recorded Date Recorded By Document 10/12/24 08:53 [id number] 10/12/24 09:19 10/12/24 08:53 NIH Stroke Scale [NIHSS] A score of 0 is normal or asymptomatic . Total possible score is 42. Inpatient: RN or Physician to activate a stroke alert for onset of new stroke symptoms or with NIHSS increase >/= 3 points. Following change in neurological status, NIHSS will be performed per physician order or more frequently PRN. -1a. Level of Consciousness 0 - Alert; keenly responsive -1b. LOC Questions 0 - Answers BOTH questions correctly -1c. LOC Commands 0 - Performs BOTH tasks correctly -2. Best Gaze 0 - Normal -3. Visual 0 - No visual loss -4. Facial Palsy 0 - Normal symmetrical movements -5a. Left Arm 0 - No drift; arm holds 90 ( or 45) degrees for full 10 seconds -5b. Right Arm 0 - No drift; arm holds 90 ( or 45) degrees for full 10 seconds -6a. Left Leg 0 - No drift; leg holds 30- degree position for full 5 seconds -6b. Right Leg 0 - No drift; leg holds 30- degree position for full 5 seconds -7. Limb Ataxia 0 - Absent -8. Sensory 0 - Normal; no sensory loss -9. Best Language 0 - No aphasia; normal -10. Dysarthria 0 - Normal -11. Extinction and Inattention 0 - No abnormality -Total 0 Query Text:A score of 0 is normal or asymptomatic. Total possible score is 42 . ED: Notify Physician for NIHSS increase by > / = 3 points. Inpatient: RN or Physician to activate a stroke alert for NIHSS increase of > / = 3 points. Coma Scale [Assess] -Eye Opening Spontaneous -Motor Obeys Commands -Verbal Oriented [Total] -Coma Scale Total 15
--- NOTE | 2024-10-12 11:41 | PCM.DC ---
Discharge Instructions DC O2, CPAP, BIPAP needs Home O2 Discharge instructions: No Dressing / Incision Discharge Activity: Return to Normal Activity Weight Bearing Status: Weight bearing as tolerated Dressing / Incision Call your doctor if you observe: Fever of 101 or Higher, Coldness, Increased Pain, Numbness or Tingling, Change in Color, Inability to urinate, Inability to have a bowel movement, Shortness of breath, Dizziness, Fainting spells, Swelling in the ankles, Chest pain, Prolonged hiccupping, Increased palpitations (irregular heartbeat) and Calf discomfort Follow Up Care When: IN 2 WEEKS Test Results: Test results from this visit will be discussed in further detail at your follow-up appointment, if applicable. Discharge Plan Admission Admit Date/Time: 10/11/24 20:51 Primary Reason for Your Visit: Acute stroke ruled out Attending Provider: Merlin Rivers Primary Care Provider: Leigha Wynn NP Consulting Providers: Horacio Lopez; Cyrus Ball; Fay Burkett; Hina Maurice; Mahsa Farmer; Brown Rg; Jazmin Asher; Krzysztof Estrada; Deandre Stinson; Jose Armando Resendiz; Clarissa Easton; Saleem cA; Lena Mccann; Rudy Callahan; Bill Matthews; Jose Billingsley; Lei Cabrera; Jorge Park; Crissy Smith; Jaky Soria; Maverick Mitchell Discharge Orders/Prescriptions Prescriptions: New atorvastatin [Lipitor] 40 mg tablet 40 mg PO QHS 30 Days Qty: 30 2RF Continued glucosamine HCl 500 mg tablet 500 mg PO QDAY Rx Instructions: administer with a meal ergocalciferol (vitamin D2) 1,250 mcg (50,000 unit) capsule 1,250 mcg PO QWEEK ascorbic acid (vitamin C) [Acerola C] 500 mg tablet,chewable 500 mg PO DAILY Referrals / Follow Up: Rio Brower MD [Non-Staff -Ordering Privileges] - Within 1 Month (Possible complicated migraine) Leigha Wynn NP, [facility] [Primary Care Provider] - Within 2 Weeks Disposition Disposition (needs filled in before D/C Order can be placed): Home, Self Care
--- NOTE | 2024-10-12 11:47 | PCM.DC.SUM ---
Providers Date of Admission: 10/11/24 Date of Discharge: 10/12/24 Primary Care Physician: EDGAR Long Consultations 10/11/24 21:43 Consult: Tele-Neurology Routine Consulting Provider: [facility] Reason for Consult: Acute Ischemic Stroke/TIA EMERGENT Consult: No MD Notified: Yes Date Notified: 10/11/24 Time Notified: 23:50 Method of Notification: Answering Service Nursing Unit Staff Notify [facility] of Tele-Neurology Consult: Yes Reason For Visit: TIA VS CVS, WITH VISUAL DISTURBANCE, SLURRED Diagnosis Discharge Diagnosis (1) Brain TIA: Status: Acute Code(s): G45.9 - Transient cerebral ischemic attack, unspecified (2) Slurred speech: Status: Acute Code(s): R47.81 - Slurred speech (3) Headache: Status: Acute Code(s): R51.9 - Headache, unspecified Qualifiers: Headache type: unspecified Headache chronicity pattern: acute headache Intractability: not intractable Qualified Code(s): R51.9 - Headache, unspecified (4) Visual disturbance: Status: Acute Code(s): H53.9 - Unspecified visual disturbance (5) Dehydration: Status: Acute Code(s): E86.0 - Dehydration (6) Obesity (BMI 30-39.9): Status: Acute Code(s): E66.9 - Obesity, unspecified Plan 58-year-old female admitted with visual changes like spots or light flashes. She is also having trouble putting words together/speech difficulties and was hard to understand. She was not complaining of headache. Visual and speech changes resolved. Related to stroke. Symptoms started at 1:30 PM. As per teleneurologist patient still had headache. NIH stroke scale 0. Clinical impression was either TIA versus complicated migraine. No thrombolytic recommendation because of onset amnesia. 1. TIA vs CVA; with transient slurred speech, visual disturbance and headache - Admit to PCU under observation status. Check MRI of the brain to evaluate for evidence of CVA. Check echocardiogram to evaluate LVEF. Start clopidogrel (in light of listed allergy to aspirin) plus statin and check TSH, B12, Folate, HgbA1c, Lipid Profile, UDS and HIEU. Give ondansetron IV prn for nausea and vomiting. Give acetaminophen prn for omco-cw-hplcoanf (level 1-5/10) pain or fever. Give oxycodone orally prn for severe (level 6-10/10) pain. Finally, we will consult [facility] to see this patient on rounds in the a.m. further recommendations help appreciated advancement. Patient had MRI brain which was reported no acute intracranial abnormality. CTA head and neck reported normal.. Patient just had echo on June 2024 which was normal right atrium left atrium mildly enlarged. Mild TR PASP 28 mmHg. As per the neurologist stroke unlikely most likely complicated migraine. Patient is discharged home with follow-up with neurologist Fasting profile shows LDL elevated therefore discharged on atorvastatin 40 mg subcu daily. 2. Dehydration; with BUN/creatinine ratio of 30: Received with IV fluid. Dehydration corrected 3. Obesity (class II); with BMI of 39.5 KG per square meter. TSH normal. B12 normal. 4. DM-2; currently not on treatment - ADA diet if patient passes bedside allow evaluation. FSBS q. AC/HS plus SSI. A1c 5.5%. 5 psoriasis - Stable and without evidence of acute flare. 6. PVD - Noted. 9. History of hyperparathyroidism; s/p parathyroidectomy - Noted. 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 11. OA; on glucosamine - Give acetaminophen prn for pain or fever. 12. DVT prophylaxis - Enoxaparin 40 mg sq daily plus SCD's. Discharge medication reconciliation done. Discharge follow-up instructions completed. Discharge process discussed with the patient and all questions were answered to patient's satisfaction. Follow with PCP in 1 to 2 weeks Total time spent, exact 35 minutes on discharge meds reconciliation, examination, coordination of care with nurses and ancillary staff, review of imaging and blood test and discussion with the patient on follow-up instructions. Laboratory Results 10/11/24 17:21: POC Glucose 139 H 10/11/24 17:30: WBC 5.8, RBC 4.21, Hgb 13.3, Hct 40.3, MCV 95.7, MCH 31.6, MCHC 33.0, RDW Std Deviation 46.7 H, RDW Coeff of Luisa 13.3, Plt Count 288, MPV 10.9, Immature Gran % (Auto) 0.300, Neut % (Auto) 62.1, Lymph % (Auto) 27.4, Kimble % (Auto) 7.1, Eos % (Auto) 2.4, Baso % (Auto) 0.7, Absolute Neuts (auto) 3.6, Absolute Lymphs (auto) 1.59, Nucleated RBC % 0, PT 13.8, INR 1.0, APTT 34.4, Sodium 141, Potassium 4.0, Chloride 106, Carbon Dioxide 24.3, Anion Gap 11, BUN 28 H, Creatinine 0.92, Estim Creat Clear Calc 74.73, Est GFR (MDRD) Non-Af 72, BUN/Creatinine Ratio 30.0 H, Glucose 109 H, Calcium 9.2, Troponin T High Sens 10 10/11/24 19:26: Troponin T Hi Sens 2 Hr 7 10/11/24 22:09: Hemoglobin A1c 5.5, Troponin T Hi Sens 4Hr 7, Serum Folate 10.50, TSH 1.410, Ethyl Alcohol < 10.1 10/12/24 01:33: Troponin T High Sens 6 D 10/12/24 03:50: Troponin T Hi Sens 2 Hr < 6 10/12/24 05:43: Troponin T Hi Sens 4Hr Pending, Triglycerides 37, Cholesterol 194, LDL Cholesterol, Calc 147, VLDL Cholesterol 7, HDL Cholesterol 40, Cholesterol/HDL Ratio 4.87, Vitamin B12 Pending 10/12/24 06:00: Urine Opiates Screen Pending, U Buprenorphine Qual Pending, Ur Oxycodone Screen Pending, Urine Methadone Screen Pending, Urine Fentanyl Screen Pending, Ur Barbiturates Screen Pending, Ur Phencyclidine Scrn Pending, Ur Amphetamines Screen Pending, U Benzodiazepines Scrn Pending, Urine Cocaine Screen Pending, U Cannabinoids Screen Pending Clinical Impression(s) from Imaging Studies Brain CT 10/11/24 17:22 IMPRESSION: No intracranial hemorrhage. No mass effect or midline shift. [facility] Head/Neck CTA 10/11/24 19:10 IMPRESSION: Normal CTA of the head and neck. Reading Location: [id number] Medications at Discharge Home Medications glucosamine HCl 500 mg tablet 500 mg PO QDAY 09/20/24 ascorbic acid (vitamin C) 500 mg chewable tablet (Acerola C) 500 mg PO DAILY 10/11/24 ergocalciferol (vitamin D2) 1,250 mcg (50,000 unit) capsule 1,250 mcg PO QWEEK 10/11/24 atorvastatin 40 mg tablet (Lipitor) 40 mg PO QHS 30 days #30 tabs 10/12/24 Physical Exam Narrative Seen and examined. Patient had headache bilateral mainly in frontal region for about 2 days prior to ED visit. She also complained of lolly shaped visual abnormality/blurry vision and speech abnormality. Headache is much better. Visual abnormality and speech abnormality has resolved Physical exam General: Alert, Oriented x3, Cooperative HEENT: Atraumatic, PERRLA, EOMI, Normocephalic. Oral: No Gingival or Mucosal Lesions/ Ulcerations Neck: Supple, No JVD, Negative Carotid Bruits Chest wall/Lungs: Air entry diminished in bilateral lung bases. No crepitation/rhonchi Cardiovascular: Regular rate and rhythm, Normal S1,S2, No M/G/R Abdomen: Bowel Sounds Present, Soft, Non Tender, Non-Distended : No dysuria. No renal angle tenderness. No suprapubic tenderness. Extremities: No edema, Capillary Refill Less than 3 Seconds Skin: No rashes, No breakdown Musculoskeletal: No Tenderness to Palpation of Joints or Extremities Neurological: Cranial nerves II-XII grossly intact, DTR 2+/4. No acute focal neurological deficit. NIH scale 0. Psych/Mental Status: Normal Affect, Appropriate. Weight / BMI Weight Weight: 224 lb 8.653 oz Body Mass Index (BMI) 39.7 ABG / Lab / Microbiology Data 10/11/24 17:30 10/11/24 17:30 Laboratory: Laboratory Results - last 24 hr 10/11/24 17:21: POC Glucose 139 H 10/11/24 17:30: WBC 5.8, RBC 4.21, Hgb 13.3, Hct 40.3, MCV 95.7, MCH 31.6, MCHC 33.0, RDW Std Deviation 46.7 H, RDW Coeff of Luisa 13.3, Plt Count 288, MPV 10.9, Immature Gran % (Auto) 0.300, Neut % (Auto) 62.1, Lymph % (Auto) 27.4, Kimble % (Auto) 7.1, Eos % (Auto) 2.4, Baso % (Auto) 0.7, Absolute Neuts (auto) 3.6, Absolute Lymphs (auto) 1.59, Nucleated RBC % 0, PT 13.8, INR 1.0, APTT 34.4, Sodium 141, Potassium 4.0, Chloride 106, Carbon Dioxide 24.3, Anion Gap 11, BUN 28 H, Creatinine 0.92, Estim Creat Clear Calc 74.73, Est GFR (MDRD) Non-Af 72, BUN/Creatinine Ratio 30.0 H, Glucose 109 H, Calcium 9.2, Troponin T High Sens 10 10/11/24 19:26: Troponin T Hi Sens 2 Hr 7 10/11/24 22:09: Hemoglobin A1c 5.5, Troponin T Hi Sens 4Hr 7, Serum Folate 10.50, TSH 1.410, Ethyl Alcohol < 10.1 10/12/24 01:33: Troponin T High Sens 6 D 10/12/24 03:50: Troponin T Hi Sens 2 Hr < 6 10/12/24 05:43: Troponin T Hi Sens 4Hr 7, Triglycerides 37, Cholesterol 194, LDL Cholesterol, Calc 147, VLDL Cholesterol 7, HDL Cholesterol 40, Cholesterol/HDL Ratio 4.87, Vitamin B12 446 10/12/24 06:00: Urine Opiates Screen NEGATIVE, Ur Oxycodone Screen NEGATIVE, Urine Methadone Screen NEGATIVE, Urine Fentanyl Screen NEGATIVE, Ur Barbiturates Screen NEGATIVE, Ur Phencyclidine Scrn NEGATIVE, Ur Amphetamines Screen NEGATIVE, U Benzodiazepines Scrn NEGATIVE, Urine Cocaine Screen NEGATIVE, U Cannabinoids Screen NEGATIVE Radiography Diagnostic Testing: Radiology Impression Brain CT 10/11/24 17:22 IMPRESSION: No intracranial hemorrhage. No mass effect or midline shift. Reading [facility] Head/Neck CTA 10/11/24 19:10 IMPRESSION: Normal CTA of the head and neck. Reading Location: [facility] Brain MRI 10/12/24 09:00 IMPRESSION: No acute intracranial abnormality. Reading Location: [id number] D/C Instructions Weight Bearing Status: Weight bearing as tolerated Call your doctor if you observe: Fever of 101 or Higher, Coldness, Increased Pain, Numbness or Tingling, Change in Color, Inability to urinate, Inability to have a bowel movement, Shortness of breath, Dizziness, Fainting spells, Swelling in the ankles, Chest pain, Prolonged hiccupping, Increased palpitations (irregular heartbeat) and Calf discomfort DC O2, CPAP, BIPAP Needs Home O2 Discharge instructions: No When: IN 2 WEEKS Meaningful Use Info Meaningful Use Meaningful Use Diagnoses (Choose all that apply): None applicable Discharge Plan Admission Admit Date/Time: 10/11/24 20:51 Primary Reason for Your Visit: Acute stroke ruled out Attending Provider: Merlin Rivers Primary Care Provider: Leigha Wynn NP Consulting Providers: Horacio Lopez; Cyrus Ball; Fay Burkett; Hina Maurice; Mahsa Farmer; Brown Rg; Jazmin Asher; Krzysztof Estrada; Deandre Stinson; Jose Armando Resendiz; Clarissa Easton; Saleem Ac; Lena Mccann; Rudy Callahan; Bill Matthews; Jose Billingsley; Lei Cabrera; Jorge Park; Crissy Smith; Jaky Soria; Maverick Mitchell Discharge Orders/Prescriptions Prescriptions: New atorvastatin [Lipitor] 40 mg tablet 40 mg PO QHS 30 Days Qty: 30 2RF Continued glucosamine HCl 500 mg tablet 500 mg PO QDAY Rx Instructions: administer with a meal ergocalciferol (vitamin D2) 1,250 mcg (50,000 unit) capsule 1,250 mcg PO QWEEK ascorbic acid (vitamin C) [Acerola C] 500 mg tablet,chewable 500 mg PO DAILY Referrals / Follow Up: Rio Brower MD [Non-Staff -Ordering Privileges] - Within 1 Month (Possible complicated migraine) Leigha Wynn NP, COMPUTER ENGINEER-C [Primary Care Provider] - Within 2 Weeks Disposition Disposition (needs filled in before D/C Order can be placed): Home, Self Care Charges/Coding Visit Charges Inpatient E&M: 50444 Disch Hosp >30min
--- NOTE | 2024-10-12 12:31 | CASEMGMT ---
Social Work Pt negative for stroke. PHQ9 not completed LOBO Jacobo
== END 2024-10-12 11:46 | disposition home or self-care (01) ==
LOC: ED 18:35 → PCU 21:02
PROVIDERS: Admitting Provider Internal Medicine; Emergency Provider Emergency Medicine; PCP Nurse Practitioner Family; Visit Provider Internal Medicine
DX: G45.9 Transient cerebral ischemic attack, unspecified (principal); E11.9 Type 2 diabetes mellitus without complications; R47.81 Slurred speech; R51.9 Headache, unspecified; E86.0 Dehydration; Z79.82 Long term (current) use of aspirin; R47.01 Aphasia; Z68.39 Body mass index [BMI] 39.0-39.9, adult; H53.9 Unspecified visual disturbance; L40.9 Psoriasis, unspecified; I73.9 Peripheral vascular disease, unspecified; E66.812 Obesity, class 2
CPT/HCPCS: 36415; 70450; 70496; 70498; 70551; 80048; 80061; 80307; 82077; 82607; 82746; 82962; 83036; 84443; 84484; 85025; 85610; 85730; 93005; 93308; 94762; 96372; 96374; 96375; 97161; 99221; 99285; Q9967; A4216; G0378

== ENCOUNTER 2024-11-19 08:15 | Day surgery (SDC) | payer SELFPAY ==
--- NOTE | 2024-11-05 16:12 | PAT.ANESEVAL ---
Pre-Assessment Diagnosis/Proposed Procedure Planned Operative Procedure(s): TOTAL ROBOTIC HYSTERECTOMY BILATERAL SALPINGO-OOPHORECOTMY, CYTSOSCOPY, RECTOCELE REPAIR Anesthesia History Anesthesia History - electrophonic engineer: Anesthesia History - electrophonic engineer Hx Hospitalization Yes: SEP 2024 11/05/24 13:07 Any Problems With Anesthesia No 11/05/24 13:07 Cholinesterase deficiency No 11/05/24 13:07 You/Your Family Experience No 11/05/24 13:07 fever (hyperthermia) with Relationship Recent Exposure to Contagious No 06/04/24 06:38 Disease Does patient have nerve No 11/05/24 13:07 stimulator Patient instructed to have device shut off --Does patient have Pacemaker or ICD? When Was Last Pacemaker Check QUESTION #4 FULL TEXT: You/Your Family Experience fever (hyperthermia) with Anesthesia Last Oral Intake Last Oral intake: Last Oral Intake NPO since Meds taken in AM with sips of water? Meds patient instructed to take am of surgery PONV PONV - electrophonic engineer: PONV - electrophonic engineer Female Yes 11/05/24 13:07 HX of Motion Sickness No 11/05/24 13:07 HX of N/V After Surgery No 11/05/24 13:07 Non-Smoker Yes 11/05/24 13:07 Duration of Surgery greater Yes 11/05/24 13:07 than 60 minutes Number of Risk Factors 3 11/05/24 13:07 PONV Score Moderate Risk 11/05/24 13:07 Height & Weight Height & Weight: Anesthesia: Height & Weight Height 5 ft 3 in 09/20/24 15:54 Respiratory Assessment Respiratory Assessment - electrophonic engineer: Respiratory Tract Infection Hx - electrophonic engineer Hx Respiratory Tract Infection No 11/05/24 13:07 STOP Sleep Apnea STOP Sleep Apnea - electrophonic engineer: STOP Sleep Apnea - electrophonic engineer Hx Hypertension No 11/05/24 13:07 Hx Sleep Apnea No 11/05/24 13:07 CPAP BIPAP Do you snore loudly (louder No 11/05/24 13:07 than talking or can be heard Do you often feel tired/ No 11/05/24 13:07 fatigued/ sleepy during daytime? Has anyone observed you stop No 11/05/24 13:07 breathing during sleep? STOP Results Negative 11/05/24 13:07 QUESTION #5 FULL TEXT : Do you snore loudly (louder than talking or can be heard through closed doors)? Tobacco Use History Tobacco Use History - electrophonic engineer: Tobacco Use History - electrophonic engineer Tobacco Use Smoking Status Never smoker 11/05/24 13:07 Hx Tobacco Use No 11/05/24 13:07 Years Smoking Packs Smoked per Day Smoking Cessation Date was within the last 15 years Hx Smoking Cessation Date Hx Smoking Cessation Counseling Hematologic Medial History Hematologic Hx - electrophonic engineer: Hematologic Medical Hx - life sciences director Hx of Blood Transfusion No 11/05/24 13:07 Hx of Transfusion in last 3 No 11/05/24 13:07 Months Date of Last Transfusion (if within last 3 months) Ever experience any problems No 11/05/24 13:07 with transfusion(s)? Specify any problems Hx of Preganancy in last 3 No 11/05/24 13:07 Months Nurse Filling Out Transfusion [email or web address] 11/05/24 13:07 & Questions: Date: 11/05/24 11/05/24 13:07 Time: 13:11 11/05/24 13:07 Patient unable to answer at this time (ie. confused, unrespo /Reproduction History /Reproductive History - electrophonic engineer: /Reproductive Hx- electrophonic engineer Hx Now Gestational Age (in weeks): EDC: Hx Hx Para Hx Section SAB No 09/20/24 15:54 PFSH Medical History (Updated 11/05/24 @ 13:14 by Nixon Arboleda) High cholesterol History of echocardiogram Dehydration Wears glasses Arthritis Scoliosis Non-smoker History of edema Thyroid eye disease Primary hyperparathyroidism Hyperparathyroidism Screening for osteoporosis Home Medications ?Medication ?Instructions ?Recorded ?Last Taken ?Type glucosamine HCl 500 mg tablet 500 mg PO QDAY 09/20/24 10/11/24 13:30 History 500 mg ascorbic acid (vitamin C) 500 mg 500 mg PO DAILY vitamin 10/11/24 10/11/24 13:30 History chewable tablet (Acerola C) ergocalciferol (vitamin D2) 1,250 1,250 mcg PO QWEEK vitamin 10/11/24 10/05/24 History mcg (50,000 unit) capsule Allergy/AdvReac Type Severity Reaction Status Date / Time aspirin (ASA) Allergy Intermediate Swelling Verified 11/05/24 13:06 Iodinated Contrast Media Allergy Mild Hives Verified 11/05/24 13:06 (contrast dye - iodinated) levofloxacin (From Levaquin) Allergy Other Verified 11/05/24 13:06 naproxen Allergy Other Verified 11/05/24 13:06 Penicillins Allergy Other Verified 11/05/24 13:06 Family History Father Cancer Prostate Sister Cancer cholangiocarcinoma- Bile duct Grandfather Cancer Prostate Surgical History S/P parathyroidectomy S/P D&C (status post dilation and curettage) S/P appendectomy Social History household members: spouse current occupational status: employed current occupation: [employer] Smoking Status: Never smoker alcohol intake: never substance use type: does not use seatbelt use: always do you feel safe at home: Yes additional social history: - [employer]- Retired Audit: Pertinent Findings Pertinent Findings EKG Perinent findings: 10/12/2024. Marked sinus bradycardia at 41 bpm. Cannot rule out anterior infarct, age undetermined. Echo (EF%) pertinent findings: 10/12/2024. EF is 60%. RVSP is 25 mmHg. No aortic stenosis. Recommendation Anesthesia Recommendation Anesthesia recommendation: OPTIMIZED for anesthesia
[2024-11-12 10:45] LABS: Hematocrit 43.9 % (37-47); Hemoglobin 14.5 g/dL (12.0-15.0); Immature Granulocytes Count 0.010 X10^3/uL (0.0-0.0); Mean Corp Hgb Conc 33.0 g/dL (32-36); Mean Corpuscular Volume 97.8 fL (81-99); Mean Platelet Vol. 11.0 fl (6.2-12.0); NRBC Flagged by Analyzer 0 % (0-5); Platelet Count 293 K/mm3 (150-450); RBC Distribution Width CV 13.2 % (11.6-14.6); RBC Distribution Width SD 47.3 fl (35.1-43.9); Red Blood Count 4.49 M/mm3 (4.2-5.4); White Blood Count 4.7 K/mm3 (4.4-11.0)
[2024-11-12 11:21] LABS: Magnesium 2.4 mg/dL (1.5-2.2)
[2024-11-12 12:09] LABS: AST(SGOT) 30 U/L (<=31); Alanine Aminotransfer ALT/SGPT 36 U/L (<=34); Albumin, Serum 4.0 g/dL (3.4-4.8); Alkaline Phosphatase 65 U/L (35-104); Anion Gap 12 (5-15); BUN 21 mg/dL (4-19); BUN/Creat Ratio 24.4 RATIO (10-20); Calcium,Total 9.4 mg/dL (7.6-11.0); Carbon Dioxide 24.7 mmol/L (21.0-32.0); Chloride 107 mmol/L (98-108); Globulin 2.6 g/dL (2.2-4.2); Glucose 84 mg/dL (70-99); Potassium 4.5 mmol/L (3.3-5.1); Vitamin D,25 Hydroxy 36.5 ng/mL (30-100)
[2024-11-19] VITALS (11 sets, daily range): BP systolic 105–122; BP diastolic 50–74; PULSE 48–70; RESP 16–18; TEMP 35.9–36.3; O2SAT 93–100; BMI 38.6
[2024-11-19] MEDS: Lactated Ringers 1,000 ML 40 ML IV (08:55)
[2024-11-19] MEDS: Scopolamine 1mg/72hr Patch 1 PATCH TD (08:55)
[2024-11-19] MEDS: Magnesium 1 GM over 15 mins IV (08:55)
[2024-11-19] MEDS: WATER IV (09:18)
[2024-11-19] MEDS: DEXTROSE 5% IV (09:18)
[2024-11-19] MEDS: GENTAMICIN IV (09:18)
--- NOTE | 2024-11-19 09:51 | PRE.ANES_ITS ---
ASA Classification* ASA Classification ASA Classification: 3 Assessment & Plan Anesthesia* Anesthesia Assessment Anesthesia Assessment: Discussed sedation and/or anesthesia options, risks, benefits, and alternatives with patient/parents/legal guardian/POA. Questions invited. The patient/parents/legal guardian/POA seems to understand and agrees to proceed with anesthesia plan. Reviewed the physical assessment, medical history, allergy history and patient home medications list prior to surgery/procedure/anesthetic and documented any changes. Performed airway and anesthesia risk assessments. Anesthesia Type Anesthesia Type: General History Source History Obtained from:: Patient and Chart Anesthesia Focused Assessment* Temperature: 97.2 F Pulse Rate: 48 Blood Pressure: 105/57 Respiratory Rate: 16 Pulse Ox: 100 Oxygen Delivery Method: Room Air Airway Assessment Mouth opens: >3 cm Mallampati Score: III Teeth Condition: Caps/Crowns (Patient has a capped left lower molar.) Neck Range of motion (ROM): Limited ROM (Slight Decrease) Labs Anesthesia Preop lab: CBC WBC, (4.4-11.0) 4.7 K/mm3 11/12/24, : RBC, (4.2-5.4) 4.49 M/mm3 11/12/24, 09: Hgb, (12.0-15.0) 14.5 g/dL 11/12/24, 09: Hct, (37-47) 43.9 % 11/12/24, 09:22 Plt Count, (150-450) 293 K/mm3 11/12/24, 09:22 CHEMISTRY Potassium, (3.3-5.1) 4.5 mmol/L 11/12/24, :22 Sodium, (133-145) 143 mmol/L 11/12/24, 09:22 Magnesium, (1.5-2.2) 2.4 mg/dL H 11/12/24, 09:21 BUN, (4-19) 21 mg/dL H 11/12/24, 09:22 Creatinine, (0.70-1.20) 0.88 mg/dL 11/12/24, 09:22 Glucose, (70-99) 84 mg/dL 11/12/24, 09:22 POC Glucose, (74-106) 81 mg/dL Today, 08:58 TSH, (0.300-4.200) 2.440 uIU/mL 11/12/24, 09:22 COAG PT, (11.7-14.9) 13.8 SECONDS 10/11/24, 17:30 Pre-Assessment Diagnosis/Proposed Procedure Planned Operative Procedure(s): TOTAL ROBOTIC HYSTERECTOMY BILATERAL SALPINGO- OOPHORECOTMY, CYTSOSCOPY, RECTOCELE REPAIR Anesthesia History Anesthesia History - community organization aide: Anesthesia History - community organization aide Hx Hospitalization Yes: SEP 2024 11/05/24 13:07 Any Problems With Anesthesia No 11/05/24 13:07 Cholinesterase deficiency No 11/05/24 13:07 You/Your Family Experience No 11/05/24 13:07 fever (hyperthermia) with Relationship Recent Exposure to Contagious No 11/19/24 08:44 Disease Does patient have nerve No 11/05/24 13:07 stimulator Patient instructed to have device shut off --Does patient have Pacemaker No 11/19/24 08:44 or ICD? When Was Last Pacemaker Check QUESTION #4 FULL TEXT: You/Your Family Experience fever (hyperthermia) with Anesthesia Last Oral Intake Last Oral intake: Last Oral Intake NPO since 06:00 11/19/24 08:44 Meds taken in AM with sips of Yes 11/19/24 08:44 water? Meds patient instructed to eras, see mar 11/19/24 08:44 take am of surgery Any additional information?: Yes NPO since: 06:00 (Patient had her presurgical Ensure at 6 AM.) Meds taken in AM with sips of water?: No PONV PONV - community organization aide: PONV - community organization aide Female Yes 11/05/24 13:07 HX of Motion Sickness No 11/05/24 13:07 HX of N/V After Surgery No 11/05/24 13:07 Non-Smoker Yes 11/05/24 13:07 Duration of Surgery greater Yes 11/05/24 13:07 than 60 minutes Number of Risk Factors 3 11/05/24 13:07 PONV Score Moderate Risk 11/05/24 13:07 Height & Weight Height & Weight: Anesthesia: Height & Weight Height 5 ft 3 in 11/19/24 08:44 Weight: 99 kg 11/19/24 08:44 Body Mass Index (BMI) 38.6 11/19/24 08:44 Respiratory Assessment Respiratory Assessment - community organization aide: Respiratory Tract Infection Hx - community organization aide Hx Respiratory Tract Infection No 11/05/24 13:07 STOP Sleep Apnea STOP Sleep Apnea - community organization aide: STOP Sleep Apnea - community organization aide Hx Hypertension No 11/05/24 13:07 Hx Sleep Apnea No 11/05/24 13:07 CPAP BIPAP Do you snore loudly (louder No 11/05/24 13:07 than talking or can be heard Do you often feel tired/ No 11/05/24 13:07 fatigued/ sleepy during daytime? Has anyone observed you stop No 11/05/24 13:07 breathing during sleep? STOP Results Negative 11/05/24 13:07 QUESTION #5 FULL TEXT : Do you snore loudly (louder than talking or can be heard through closed doors)? Tobacco Use History Tobacco Use History - community organization aide: Tobacco Use History - community organization aide Tobacco Use Smoking Status Never smoker 11/05/24 13:07 Hx Tobacco Use No 11/05/24 13:07 Years Smoking Packs Smoked per Day Smoking Cessation Date was within the last 15 years Hx Smoking Cessation Date Hx Smoking Cessation Counseling Hematologic Medial History Hematologic Hx - community organization aide: Hematologic Medical Hx - benefits officer Hx of Blood Transfusion No 11/05/24 13:07 Hx of Transfusion in last 3 No 11/05/24 13:07 Months Date of Last Transfusion (if within last 3 months) Ever experience any problems No 11/05/24 13:07 with transfusion(s)? Specify any problems Hx of Preganancy in last 3 No 11/05/24 13:07 Months Nurse Filling Out Transfusion [id number] 11/05/24 13:07 & Questions: Date: 11/05/24 11/05/24 13:07 Time: 13:11 11/05/24 13:07 Patient unable to answer at this time (ie. confused, unrespo /Reproduction History /Reproductive History - community organization aide: /Reproductive Hx- community organization aide Hx Now Gestational Age (in weeks): EDC: Hx Hx Para Hx Section SAB No 10/21/24 10:09 Active Medications Active Medications: Current Medications Generic Name Dose Route Start Last Admin Trade Name Freq PRN Reason Stop Dose Admin Acetaminophen 1,000 mg 11/19/24 11:00 11/19/24 08:54 Acetaminophen 500 Mg Tablet PO 11/19/24 11:01 1,000 mg PREOP ONE Administration Celecoxib 400 mg 11/19/24 11:00 11/19/24 08:54 Celecoxib 200 Mg Capsule PO 11/19/24 11:01 400 mg PREOP ONE Administration Gabapentin 600 mg 11/19/24 11:00 11/19/24 08:54 Gabapentin 600 Mg Tablet PO 11/19/24 11:01 600 mg PREOP ONE Administration Lactated Ringer's 1,000 mls @ 40 mls/hr 11/19/24 11:00 11/19/24 08:55 IV 40 mls/hr .Q25H ALCIDES Administration Clindamycin Phosphate 900 mg in 50 mls @ 75 mls/hr 11/19/24 11:00 Cleocin IV 11/19/24 11:39 INTRAOP ONE Gentamicin Sulfate 280 mg/ 57 mls @ 100 mls/hr 11/19/24 11:00 11/19/24 09:18 Dextrose IV 11/19/24 11:34 100 mls/hr INTRAOP ONE Administration Lactated Ringer's 1,000 mls @ 70 mls/hr 11/19/24 11:00 IV .[id number] ALCIDES Magnesium Sulfate 1 gm/ 102 mls @ 408 mls/hr 11/19/24 11:00 11/19/24 09:17 Dextrose IV 11/19/24 11:14 Infused PREOP ONE Infusion Insulin Human Lispro 0 unit 11/19/24 11:00 Insulin Lispro 100 Unit/Ml Insuln.Pen SC 11/19/24 17:00 Q4H PRN PRN BG >/= 180, SEE PROTOCOL Protocol Ondansetron HCl 4 mg 11/19/24 11:00 Ondansetron 4 Mg/2 Ml Vial IV 11/19/24 11:01 INTRAOP ONE Phenazopyridine HCl 190 mg 11/19/24 11:00 11/19/24 08:54 Phenazopyridine 95 Mg Tablet PO 11/19/24 11:01 190 mg PREOP ONE Administration Scopolamine HBr 1 patch 11/19/24 11:00 11/19/24 08:55 Scopolamine 1mg/72hr Patch TD 11/19/24 11:01 1 mg PREOP ONE Administration PFSH Medical History High cholesterol History of echocardiogram Dehydration Wears glasses Arthritis Scoliosis Non-smoker History of edema Thyroid eye disease Primary hyperparathyroidism Hyperparathyroidism Screening for osteoporosis Home Medications ?Medication ?Instructions ?Recorded ?Last Taken ?Type glucosamine HCl 500 mg tablet 500 mg PO QDAY 09/20/24 11/18/24 History ascorbic acid (vitamin C) 500 mg 500 mg PO DAILY vitam in 10/11/24 11/18/24 History chewable tablet (Acerola C) ergocalciferol (vitamin D2) 1,250 1,250 mcg PO QWEEK v itamin 10/11/24 11/16/24 History mcg (50,000 unit) capsule zinc 25 mg tablet 25 mg PO DAILY 11/19/2410/29 History Allergy/AdvReac Type Severity Reaction Status Date / Time aspirin (ASA) Allergy Intermediate Swelling Verified 11/19/24 08:42 Iodinated Contrast Media Allergy Mild Hives Verified 11/19/24 08:42 (contrast dye - iodinated) levofloxacin (From Levaquin) Allergy Other Verified 11/19/24 08:42 naproxen Allergy Other Verified 11/19/24 08:42 Penicillins Allergy Other Verified 11/19/24 08:42 Family History Father Cancer Prostate Sister Cancer cholangiocarcinoma- Bile duct Grandfather Cancer Prostate Surgical History S/P parathyroidectomy S/P D&C (status post dilation and curettage) S/P appendectomy Social History household members: spouse current occupational status: employed current occupation: [employer] Smoking Status: Never smoker alcohol intake: never substance use type: does not use seatbelt use: always do you feel safe at home: Yes additional social history: - [employer]- Retired Review of Systems (Anesthesia) ROS Narrative System reviewed and no additional complaints, except as documented.
--- NOTE | 2024-11-19 10:02 | PCM.HP.BLA ---
History and Physical Date of Admission: 11/19/24 Intake Vital Signs 09/20/2514:54 10/12/2510:48 10/21/2509:09 10/21/2509:09 Height 5 ft 3 in 5 ft 3 in 5 ft 3 in 5 ft 3 in Weight: 218 lb 2 oz BMI 38.6 BP 78/54 L Intake Visit Reasons: TRHBSO Cysto Physical Security Manager Required: No Is patient in pain?: No Allergies aspirin (ASA) Allergy (Intermediate, Verified 10/21/24 10:09) Swelling Iodinated Contrast Media (contrast dye - iodinated) Allergy (Mild, Verified 10/21/24 10:09) Hives levofloxacin (From Levaquin) Allergy (Verified 10/21/24 10:09) Other naproxen Allergy (Verified 10/21/24 10:09) Other Penicillins Allergy (Verified 10/21/24 10:09) Other Medications ?Medication ?Instructions ?Recorded ?Confirmed ?Type glucosamine HCl 500 mg tablet 500 mg PO QDAY 09/20/24 10/21/24 History ascorbic acid (vitamin C) 500 mg 500 mg PO DAILY vitamin 10/11/24 10/21/24 History chewable tablet (Acerola C) ergocalciferol (vitamin D2) 1,250 1,250 mcg PO QWEEK vitamin 10/11/24 10/21/24 History mcg (50,000 unit) capsule atorvastatin 40 mg tablet (Lipitor) 40 mg PO QHS 30 days #30 tabs 10/12/24 10/21/24 Rx Post menopausal: No Patient : No : No PFSH Medical History Dehydration Wears glasses Arthritis Scoliosis Non-smoker History of edema Thyroid eye disease Primary hyperparathyroidism Hyperparathyroidism Screening for osteoporosis Surgical History S/P parathyroidectomy S/P D&C (status post dilation and curettage) S/P appendectomy Family History Father Cancer Prostate Sister Cancer cholangiocarcinoma- Bile duct Grandfather Cancer Prostate Social History household members: spouse current occupational status: employed current occupation: [employer] Smoking Status: Never smoker alcohol intake: never substance use type: does not use seatbelt use: always do you feel safe at home: Yes additional social history: - [employer]- Retired [employer] TRHBSO Cysto Details: DENISE DEL CID is a 58 year old who presents for preoperative evaluation for a scheduled hysterectomy. She presented initially with postmenopausal bleeding. A biopsy showed simple endometrial hyperplasia without atypia. Ultrasound shows an enlarge 13 cm uterus, likely adenomyosis. She is status post a parathyroidectomy and has lost over 50 pounds intentinally. History 4 Elective abortions Hx Para 3 Spontaneous abortions Hx # Term Pregnancies Ectopic pregnancies Hx # Pregnancies Multiple births # of living children 3 Past Pregnancies Del. Date Name GA/Weeks Outcome Route Bth Weight Infant Gen Labor Lgth Anesthesia Del Locatn Provider FOB Unknown [place] Unknown [place]go[place] Unknown [place] ROS Const ROS Unobtainable: All systems reviewed & are unremarkable except as noted in H Resp Resp: Reports system reviewed and no additional complaints, except as documented; Denies cough GI GI: Reports as per HPI Psych Psych: Reports system reviewed and no additional complaints, except as documented Exam Const General: cooperative, healthy appearing, comfortable and no acute distress Resp Effort & Inspection: normal respiratory effort Skin General: no rashes or lesions noted Psych Appearance: grossly normal Speech and Movement: speech and movement normal Coding Level of Care Code Off vis,est,level 4 Diagnoses Pre-op evaluation Z01.818 Obesity (BMI 30-39.9) E66.9 Brain TIA G45.9 S/P parathyroidectomy Z98.890; Z90.89 Endometrial hyperplasia without atypia, simple N85.01 Enlarged uterus N85.2 Postmenopausal bleeding N95.0 Obesity E66.9 Assessment and Plan Assessment and Plan (1) Pre-op evaluation: Status: Acute (2) Obesity (BMI 30-39.9): Status: Acute (3) Brain TIA: Status: Acute (4) S/P parathyroidectomy: Status: Acute Comment: Patient 58-year-old female status post invasive parathyroidectomy with intraoperative finding of a left inferior parathyroid adenoma that was over 800 mg and saw her PTH dropped from 790 to 22 intraoperatively. Today represents patient's first postoperative visit and her immediate postoperative concerns with rash and mild hoarseness are now resolved. Further she denies any wound concerns or evidence of paresthesias. Lastly, we are pleased to recognize that she has had improvements over some preoperatively declared symptoms that were potentially connected to her hyperparathyroidism. Taken together this suggests a successful outcome. Following this clinic visit I have asked her to obtain updated calcium and PTH labs to confirm no further action is required. Lastly, I discussed that the significance of her EKG reading from her preoperative evaluation remains undetermined but that I recommended follow-up with her primary care and then potentially cardiology as deemed necessary. I suggested that a big positive list she is not declaring any symptoms that would be necessarily cardiac?related. I also suggested that it would be imperative to know if this sort of hedging was present on any prior EKG readings. Patient and her confirm understanding of this and confirm they will follow-up with [facility] physicians. (5) Endometrial hyperplasia without atypia, simple: Status: Acute (6) Enlarged uterus: Status: Acute (7) Postmenopausal bleeding: Status: Acute Comment: EMB pending. US ordered (8) Obesity: Status: Chronic Comment: Since 05/2022 lost 114# WW Orders: Orders Vitamin D,25 Hydroxy 10/21/24 Z01.818 - Encounter for other preprocedural examination CBC W/Diff, Automated 10/21/24 Z01.818 - Encounter for other preprocedural examination Comprehensive Metabolic Profil 10/21/24 Z01.818 - Encounter for other preprocedural examination Thyroid Stim Hormone (TSH) 10/21/24 Z01.818 - Encounter for other preprocedural examination Type & Screen - PAT ONLY 10/21/24 Z01.818 - Encounter for other preprocedural examination Plan After discussing the patient's diagnosis and treatment plan options, patient wishes to proceed with surgical management. I have discussed with the patient the risks, benefits, and alternatives of the procedure which include but are not limited to risks of anesthesia, bleeding, infection, possible damage to bowel, bladder, or surrounding vasculature which could lead to additional surgery to evaluate any complications. Patient agrees to procedure and wishes to proceed. ACOG/uptodate references given for additional information regarding procedure. plan is for a total robotic hysterectomy and cystoscopy, rectocele repair
--- NOTE | 2024-11-19 10:03 | DCINST_ITS ---
Discharge Instructions DC O2, CPAP, BIPAP needs Home O2 Discharge instructions: No Dressing / Incision Discharge Activity: May Shower May resume sexual activity in: 8 weeks Weight Bearing Status: Full weight bearing Lifting Restrictions: 10 pounds for 2 weeks Dressing / Incision Call your doctor if your incision/area has: Continuous Slow Oozing, Sudden I ncreased Bleeding, Increased Pain/ Swelling, Increased Redness and Foul Smelling Discharge Call your doctor if you observe: Fever of 101 or Higher, Using more than 1 pad per hour, Shortness of breath, Chest pain and Uncontrolled pain Suture Line Care: Avoid Pulling/Pushing and Avoid Pinching/Bending Remove Dressing in: 1 week (if present) Cleanse incision/area with: Soap & Water and Keep Dressing Clean & Dry Follow Up Care Please Follow Up With: So Jamison DO When: Call to make an appointment with your doctor for a postop visit in 2 and 6 weeks Test Results: Test results from this visit will be discussed in further detail at your follow- up appointment, if applicable. Discharge Plan Admission Primary Reason for Your Visit: hysterectomy and rectocele repair Attending Provider: So Jamison Primary Care Provider: Leigha Wynn NP Consulting Providers: Amado Alvarez Instructions Print Language: Citizen Of [place] Discharge Orders/Prescriptions Prescriptions: New ibuprofen 800 mg tablet 800 mg PO Q8H PRN (Reason: pain) Qty: 30 0RF oxycodone-acetaminophen [Percocet] 5-325 mg tablet 1 tab PO Q4H PRN (Reason: pain) 7 Days Qty: 20 0RF Continued glucosamine HCl 500 mg tablet 500 mg PO QDAY Rx Instructions: administer with a meal ergocalciferol (vitamin D2) 1,250 mcg (50,000 unit) capsule 1,250 mcg PO QWEEK ascorbic acid (vitamin C) [Acerola C] 500 mg tablet,chewable 500 mg PO DAILY zinc 25 mg tablet 25 mg PO DAILY Referrals / Follow Up: Leigha Wynn NP, INSPECTOR FLOOR SUB ASSEMBLY-C [Primary Care Provider, Family Practice] Disposition Disposition (needs filled in before D/C Order can be placed): Home, Self Care
--- NOTE | 2024-11-19 10:15 | UT_PTH ---
PATIENT: DENISE DEL CID [place] [facility] [id number] AGE/SX: 59/F ROOM: RE11/19/[address]: Dr. So Jamison DO : 1965 BED: DIS: 11/19/2024 SPEC #: [id number] RECD: 11/19/24 13:23 STATUS: SOHAM VICKERS #: [id number] HARJINDER: 11/19/24 10:[address]: So Jamison DEPT: SURGICAL PATHOLOGY RECD BY: Porfirio Rae ENTERED: 11/19/24 16:00 SP TYPE: UTERUS OTHR DR: MD Leigha Agrawal, SWIMMING POOL SERVICER-C Tissues: A - Uterus, NOS Procedures: Surgery Specimen Level V HEADER OPERATION: ERAS, robotic total hysterectomy, bilateral salpingo-oopherectomy PRE-OP DIAGNOSIS: Endometrial hyperplasia without atypia, simple, enlarged uterus, postmenopausal bleeding, rectocele TISSUE SUBMITTED: A- Uterus, cervix, bilateral fallopian tubes, bilateral ovaries MICROSCOPIC DIAGNOSIS A. Uterus, fallopian tubes, ovaries, robotic total hysterectomy with bilateral salpingo-oophorectomy: * Cervix: dilated endocervical glands. * Endometrium: endometrial hyperplasia with atypia; endometrial polyp x2 - see note. Note: the remaining endometrium will be submitted for processing and microscopic evaluation, and the findings will be reported in an ADDENDUM. * Myometrium: leiomyoma (1.1 cm). * Serosa: unremarkable. * Right ovary: small benign cortical cyst, corpora albicantia. * Left ovary: small benign cortical cysts, corpora albicantia. * Fallopian tubes: no specific pathologic change x2. MICROSCOPIC DESCRIPTION Slides are reviewed. GROSS DESCRIPTION A. Received in formalin labeled with the patient's name and date of . Designated as uterus, cervix, bilateral fallopian tubes, bilateral ovaries is a 157 g, 10.8 x 6.7 x 4.3 cm uterus with attached adnexa. The serosa is cárdenas-pink with focal, patchy congestion. The attached cervix is pink-red and somewhat dull, measuring 2.7 x 2.5 cm; the 0.8 cm os is probe patent. Mucoid cysts are present. The specimen is inked as follows: Uiplhbks-xuxwhSpjptowsn-znwyfCgezllwfmwh-orange. Opening reveals a 7.0 x 3.3 cm endometrial cavity lined by pale cárdenas-pink, granular endometrium measuring up to 0.6 cm thick. There are 2 (grossly) superficial posterior endometrial polyps, 2.7 x 1.3 x 0.3 cm (#1) and 1.8 x 0.7 x 0.3 cm (#2). The myometrium is cárdenas-pink and somewhat trabeculated, measuring up to 2.4 cm thick. A 1.1 cm anterior intramural leiomyoma is identified. The red-purple bilateral fallopian tubes are fimbriated and measure 4.4 x 0.5 cm (L) and 3.7 x 0.7 cm (R) The cárdenas-yellow ovaries are cerebriform and solid and measure 2.3 x 1.0 x 1.0 cm (L) and 1.8 x 1.0 x 0.8 cm (R). Deputy Brand Inspector sections are submitted as follows: A1: Anterior cervixA2: Posterior cervixA3: Anterior endomyometrium with intramural leiomyomaA4: Anterior endometrium, LUSA5: Anterior endometrium, midA6: Anterior endometrium, cornuA7: Posterior endometrium, LUSA8: Posterior endomyometrium with polyp #1(mid)A9: Posterior endomyometrium with polyp #2 (cornu)A10: Posterior endomyometrium (mid)A11: Left fallopian tubeA12: Left [id number]: Right fallopian tubeA14: Right ovary NV 11/19/2024 A. The remainder of the endometrium is submitted, sequentially from the lower uterine segment to the fundus, following histopathologic review as follows: A15-A18: Anterior [id number]: Posterior endometrium NV 12/05/2024 CPT:[id number] ADDENDUM ADDENDUM ADDENDUM ADDENDUM ADDENDUM ADDENDUM ADDENDUM ADDENDUM ADDENDUM 12/11/2024 17:09 ADDENDUM 12/11/2024 17:09 ADDENDUM 12/11/2024 17:09 ADDENDUM 12/11/2024 17:09 ADDENDUM 12/11/2024 17:09 This addendum is to report the evaluation of additional endometrial tissue submitted at [facility]: The endomyometrial junction has been totally submitted for histologic examination. No invasive carcinoma is seen. Focally there may be involvement of adenomyosis. Selected slides/images were reviewed in intradepartmental consultation by Dr Gila Wills (THERMAL INTELLIGENCE ANALYST pathology division, [facility]).
[2024-11-19] MEDS: Midazolam 2 MG/2 ML Syringe IV (10:29)
[2024-11-19] MEDS: Lidocaine 1% (5 ml sdv) 5 ML Vial IV (10:35)
[2024-11-19] MEDS: fentaNYL 100 MCG/2 ML Ampul 150 MCG IV (11:40)
[2024-11-19] MEDS: Lidocaine 1% /Epi 1:100 (20ml) 20 ML Vial (12:51)
--- NOTE | 2024-11-19 13:09 | PCM.OPRPT ---
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 Salvage Inspector: Alanis Luevano Tasks completed by administrative support assistant: Closing, Trocar and Retracting Type of Anesthesia: General RN Documented Start/Stop Times: Operation Date: 11/19/24 10:15 Case Time Into Pre-Op 11/19/24 08:19 Out of Pre-Op 11/19/24 10:24 Anesthesia Start 11/19/24 10:27 Into Room 11/19/24 10:27 Procedure Start 11/19/24 10:54 Procedure End 11/19/24 12:52 Anesthesia End 11/19/24 13:03 Out of Room 11/19/24 13:03 Into Recovery 11/19/24 13:06 Procedure Start Time: 10:54 Procedure Stop Time: 12:52 Select all DRAINS/GRAFTS/IMPLANTS that apply: None Estimated Blood Loss: 25cc Fluids Replaced: 1500 Specimen collected: Yes Description of specimen(s) removed: uterus, tubes, ovaries, cervix Description of surgery: Findings: 13 cm uterus, normal appearing ovaries and tubes. Large ventral hernia. on exploration of the abdominal cavity the uterus, adnexa, bowel, and liver were found to be normal. Cystoscopy showed no evidence of leaking at approximately 250 cc of normal saline, positive ureteral orifices and jet flow are seen and no suture material was appreciated in the bladder. Specimens removed: Uterus and cervix, Bilateral tubes and ovaries Reason for surgery: This is a 59-year-old who presented to my office with history of enlarged uterus, postmenopausal bleeding, endometrial hyperplasia, and a rectocele. The planned procedure is for a robotic hysterectomy and rectocele repair the risks benefits and alternatives were discussed with the patient the patient had a clear understanding of the procedure and a consent form was signed. Procedure: The patient was placed in the dorsal low lithotomy position and prepped and draped in the normal sterile fashion both abdominally and in the perineum. Her legs were placed in stirrups a Preston catheter was inserted into the urethra without difficulty. A weighted speculum was placed in the vagina and a single-tooth tenaculum was used to grasp the anterior lip of the cervix. An advincula uterine manipulator was inserted through the cervix without complication. It was then tied into place at the 2 and 10:00 locations on the cervix. Gloves were changed and attention was turned towards the abdomen. A large midline ventral wall hernia was noted measuring approximately 15 cm x 15 cm was noted. This took up the space of the midline of the abdomen where trocars are normally inserted. Because of this a left upper quadrant incision was made with a scalpel after Marcaine injection, and an 8 mm incision was made. An 5 mm trocar was inserted through the laparoscope, then inserted into the abdomen under direct visualization using the laparoscope. Good abdominal placement was noted and no complications were appreciated. The patient was placed in Trendelenburg position and a left lower quadrant 5 mm trocar was inserted into the abdomen under direct visualization. This was to help us place the remaining trocars. The left and right robotic trocars were placed approximately 13 cm lateral to the umbilicus and away from the hernia sac. An air seal device was utilized to create pneumoperitoneum and was placed in the left lower quadrant site. The patient was placed in steep Trendelenburg position. The robot was docked. The hysterectomy was initiated first by taking down the round ligament on each side using the vessel sealer device. The peritoneum between the round ligament and the IP ligament was opened using electrocautery and extended the length of the IP ligament. The IP ligament was then taken down using the vessel sealer device. This freed the ovaries from the sidewall. The broad ligament was then and taken down using the vessel sealer device. Next the bladder flap was taken down without complication. This was done using monopolar cautery to the level of the cervical vaginal junction. After the bladder flap was created, uterine vessels were then isolated and cauterized using the vessel sealer device and EndoShears. At this point the uterine vessels were taken down further starting from the ascending branch, dissecting along the edges of the cervix to the level of the cervical vaginal junction with hemostasis appreciated. The cervical vaginal junction was then using monopolar cautery in a circumferential pattern across the superior aspect of the cervix. The specimen was delivered through the vagina and sent to pathology. The remaining vaginal cuff was then closed using a V lock suture. This was performed in a running technique. Excellent hemostasis was obtained and good closure was noted. Irrigation was then performed. All operative sites were noted to be hemostatic. A cystoscopy was performed with a 70 degree cystoscope through the urethra into the bladder without complication. The bladder was instilled with approximately 250 cc of normal saline. Intraoperative images were made. Ureteral orifices and jets were identified. No suture material was appreciated in the bladder. The bladder was then drained and cystoscope was removed. The abdominal cavity was again examined and hemoblast was applied to the vaginal cuff incisions. The vaginal cuff was noted to have excellent hemostasis was noted. All operative sites were noted to be hemostatic. The trochars were removed under direct visualization without complication and pneumoperitoneum was reduced. At this point the skin was then closed using 4-0 Monocryl subcuticular stitch and sealed with surgical glue. Next the rectocele was repaired. This was performed by making an incision across the introitus then tunneling and cutting into the posterior vaginal mucosa. This was done until the apex of the rectocele bulge was reached. At this point the rectum was from the posterior vaginal mucosa and the vaginal mucosa was excised and passed off the field. The rectal bulge imbricated in the midline using 2-0 Vicryl suture. The vaginal mucosa was reapproximated using 2-0 Vicryl suture. The small vaginal episiotomy was also repaired with the same suture. Excellent hemostasis was noted. The patient tolerated the procedure well sponge lap and needle counts were correct x2 the patient was taken to the recovery room in stable condition. Surgical Findings: Large ventral wall hernia, enlarged uterus, normal ovaries fallopian tubes cervix, small vaginal rectocele. Complications Complications: No Admit VTE Documentation VTE Present on Admission: No VTE Mechan Device Prophylaxis: SCD's VTE Pharm Prophylaxis ordered?: No
--- NOTE | 2024-11-19 13:49 | PCM.POST.ANE ---
Anesthesia: Postop Eval I Current Vital Signs Temperature: 97.3 F Pulse Rate: 59 Blood Pressure: 110/54 Respiratory Rate: 16 Pulse Ox: 100 Oxygen Delivery Method: Room Air Assessment Airway patent: Yes Spontaneous unlabored respirations: Yes Mental status: Awake and Calm nausea: No Vomiting: No Anesthesia Complication: No Fluid Hydration Crystalloid volume administer (ml): 1,500 Total IV fluid infused: 1,500 Progress Note Anesthesia document: Postop Eval 1 completed: Yes
[2024-11-19] MEDS: HYDROcodone Bitartrate/Apap 5/325 Tablet PO (14:38)
--- NOTE | 2024-11-19 15:09 | POSTOPAN2_ITS ---
Anesthesia Postop Eval I Sum Postop Eval Completion status Anesthesia document: Postop Eval 1 completed: Yes Anesthesia Postop Eval I Summary Anesthesia Postop Eval I Summary: Anesthesia Postop Eval I: Assessment Summary Airway patent Yes 11/19/24 13:50 EMPLOYEE BENEFITS [email or web address] Spontaneous unlabored Yes 11/19/24 13:50 EMPLOYEE BENEFITS DIRECTOR.[email or web address] respirations Mental status Awake,Calm 11/19/24 13:50 EMPLOYEE BENEFITS DIRECTOR.[email or web address] nausea No 11/19/24 13:50 EMPLOYEE BENEFITS DIRECTOR.[email or web address] Vomiting No 11/19/24 13:50 EMPLOYEE BENEFITS DIRECTOR.[email or web address] Anesthesia Postop Eval I: Fluid Summary Crystalloid volume administer 1,500 11/19/24 13:50 EMPLOYEE BENEFITS DIRECTOR.[email or web address] (ml) Colloids volume administered ( ml) Blood Product volume administered (ml) Total IV fluid infused 1,500 11/19/24 13:50 EMPLOYEE BENEFITS DIRECTOR.[email or web address] Anesthesia Postop Eval I: Summary Notes Anesthesia Complication No 11/19/24 13:50 EMPLOYEE BENEFITS DIRECTOR.[email or web address] Anesthesia Complication Comment: Post-operative progress note Anesthesia: Postop Eval II Evaluation Mental status: Awake and Calm Pain Level: 2 nausea: No Vomiting: No Complications Anesthesia Complication: No
--- NOTE | 2024-11-19 15:09 | PCM.POSTANE2 ---
Anesthesia Postop Eval I Sum Postop Eval Completion status Anesthesia document: Postop Eval 1 completed: Yes Anesthesia Postop Eval I Summary Anesthesia Postop Eval I Summary: Anesthesia Postop Eval I: Assessment Summary Airway patent Yes 11/19/24 13:50 CUSTOMER RELATIONS [email or web address] Spontaneous unlabored Yes 11/19/24 13:50 CUSTOMER RELATIONS ASSISTANT.[email or web address] respirations Mental status Awake,Calm 11/19/24 13:50 CUSTOMER RELATIONS ASSISTANT.[email or web address] nausea No 11/19/24 13:50 CUSTOMER RELATIONS ASSISTANT.[email or web address] Vomiting No 11/19/24 13:50 CUSTOMER RELATIONS [email or web address].[email or web address] Anesthesia Postop Eval I: Fluid Summary Crystalloid volume administer 1,500 11/19/24 13:50 CUSTOMER RELATIONS [email or web address].[email or web address] (ml) Colloids volume administered ( ml) Blood Product volume administered (ml) Total IV fluid infused 1,500 11/19/24 13:50 CUSTOMER RELATIONS ASSISTANT.[email or web address] Anesthesia Postop Eval I: Summary Notes Anesthesia Complication No 11/19/24 13:50 CUSTOMER RELATIONS ASSISTANT.[email or web address] Anesthesia Complication Comment: Post-operative progress note Anesthesia: Postop Eval II Evaluation Mental status: Awake and Calm Pain Level: 2 nausea: No Vomiting: No Complications Anesthesia Complication: No
[2024-11-19] MEDS: HYDROmorphone Inj 0.2 MG/ML SYRINGE IV (15:54)
== END 2024-11-19 18:28 | disposition home or self-care (01) ==
LOC: SDC 08:16 → AC 08:16
PROVIDERS: Anesthesiology; PCP Nurse Practitioner Family; Referring Provider Obstetrics & Gynecology; Visit Provider Obstetrics & Gynecology
PROC: 0UT94ZZ Resection of Uterus, Percutaneous Endoscopic Approach (ICD-10-PCS; CPT 58571; principal; 2024-11-19 09:55)
DX: N85.02 Endometrial intraepithelial neoplasia [EIN] (principal); N95.0 Postmenopausal bleeding; E66.9 Obesity, unspecified; N81.6 Rectocele; K43.9 Ventral hernia without obstruction or gangrene; Z68.38 Body mass index [BMI] 38.0-38.9, adult; Z98.890 Other specified postprocedural states; Z90.89 Acquired absence of other organs; N85.01 Benign endometrial hyperplasia; N85.2 Hypertrophy of uterus; Z86.73 Personal history of transient ischemic attack (TIA), and cerebral infarction without residual deficits; Z79.899 Other long term (current) drug therapy; E78.00 Pure hypercholesterolemia, unspecified; D25.9 Leiomyoma of uterus, unspecified; N83.291 Other ovarian cyst, right side; N83.292 Other ovarian cyst, left side
CPT/HCPCS: 58571; 45560; S2900; 00840; 36415; 80053; 82306; 82962; 83735; 84443; 85025; 86850; 86900; 86901; 88307; A4216; J2405; J3475

== ENCOUNTER → 2024-12-20 | Outpatient (CLI) | payer SELFPAY ==
--- OUTSIDE RECORDS SUMMARY | 2024-12-20 16:43 | XMS RPT_ITS | CCD ---
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 Salo Boles MD Attending Provider Dr. Salo Boles MD Referring Provider Dr. Errol Adams MD Attending Provider Wynn PEST CONTROL 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-C, Leigha Attending Provider Dr. Maikol Sanchez MD Attending Provider Dr. Errol Adams MD Referring Provider Dr. Errol Adams MD Other Provider [phone] Wynn PEST CONTROL 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-C, Leigha Primary Care Provider Wynn PEST CONTROL 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-C, Leigha Referring Provider Dr. Errol Adams MD Attending Provider Wynn PEST CONTROL 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-C, Leigha Primary Care Provider Wynn PEST CONTROL 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-C, Leigha Referring Provider Wynn PEST CONTROL 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-C, Leigha Attending Provider [phone] Dr. So Jamison DO Attending Provider Wynn PEST CONTROL 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-C, Leigha Primary Care Provider Bryan HAUSER, Dr. Norton Referring Provider Daniel HAUSER, Dr. Lassiter Attending Provider Phi Alonso DO, Dr. Rizzo Attending Provider Phi Alonso DO, Dr. Rizzo Referring Provider Kingsley PEST CONTROL 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-C, [facility] Primary Care Provider Kingsley PEST CONTROL 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-C, [facility] Referring Provider Mitul HAUSER, Dr. Christopher Emergency Provider [phone] de Rm MORENO, Dr. Temple Admit Provider Unavail able de Rm MORENO, Dr. Temple Attending Provider Unav ailable de Rm DO, Dr. Temple Other Provider Unavail able Horacio Lopez MD Other Provider Unavailable Lizzy HAUSER, Dr. Bridges Other Provider Madelaine HAUSER, Fay Other Provider Unavailable Dr. Hina Maurice DO Other Provider Darian HAUSER, Dr. Bragg Other Provider [phone] Arcenio HAUSER, Dr. Dasilva Other Provider [phone] Lakeshia HAUSER, Dr. Wu Other Provider [phone] Krzysztof Estrada MD Other Provider Milad HAUSER, Dr. Carrera Other Provider [phone] Martín HAUSER, Dr. Suárez Other Provider Clarissa Easton MD Other Provider [phone] Yashira HAUSER, Dr. Monge Other Provider Ramy HAUSER, Dr. Paredes Other Provider [phone] London HAUSER, Dr. Grant Other Provider [phone] Dr. Bill Matthews MD Other Provider Jose Cruz HAUSER, Dr. Garcia Other Provider [phone] Deborah HAUSER, Dr. Odom Other Provider Vivian HAUSER, Dr. Patel Other Provider Luis HAUSER, Dr. Woodward Other Provider Unavailable Estella HAUSER, Jaky Other Provider Unavailable Silvestre HAUSER, Dr. Boyer Attending Provider Lexie HAUSER, Dr. Ochoa Attending Provider Unavailab winnie Rivers MD, Dr. Boyer Other Provider [phone] Wynn PEST CONTROL 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-C, Leigha Primary Care Physician Wynn PEST CONTROL 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-C, Leigha Attending Physician Wynn PEST CONTROL 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-C, Leigha Referring Provider [phone] Phi Alonso DO, Dr. Rizzo Attending Physician Mitul HAUSER, Dr. Christopher Emergency Department Physici an Mitchell DO, Dr. Temple Admitting Physician Kimberlee vailable Mitchell DO, Dr. Temple Nurse Practitioner Unav ailable Jessica HAUSER, Horacio Nurse Practitioner Unavailable Lizzy HAUSER, Dr. Bridges Nurse Practitioner Fay Burkett MD Nurse Practitioner Unavailab winnie Maurice DO, Dr. Santamaria Nurse Practitioner Darian HAUSER, Dr. Bragg Nurse Practitioner Arcenio HAUSER, Dr. Dasilva Nurse Practitioner Lakeshia HAUSER, Dr. Wu Nurse Practitioner [phone] Dr. Krzysztof Estrada MD Nurse Practitioner Dr. Deandre Stinson MD Nurse Practitioner Matrín HAUSER, Dr. Suárez Nurse Practitioner Clarissa Easton MD Nurse Practitioner Yashira HAUSER, Dr. Monge Nurse Practitioner Ramy HAUSER, Dr. Paredes Nurse Practitioner London HAUSER, Dr. Grant Nurse Practitioner Dr. Bill Matthews MD Nurse Practitioner Jose Cruz HAUSER, Dr. Garcia Nurse Practitioner Deborah HAUSER, Dr. Odom Nurse Practitioner Vivian HAUSER, Dr. Patel Nurse Practitioner Luis HAUSER, Dr. Woodward Nurse Practitioner Unavailmartha Soria MD, Jaky Nurse Practitioner Unavailmartha Rivers MD, Dr. Boyer Attending Physician Lexie HAUSER, Dr. Ochoa Attending Physician Unavaila mart Rivers MD, Dr. Boyer Nurse Practitioner Kim HAUSER, Dr. Fischer Nurse Practitioner Phi Alonso DO, Dr. Rizzo Nurse Practitioner Bryan HAUSER, Dr. Norton Attending Physician Kingsley PEST CONTROL 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, Leigha Primary Care Unavailable Maverick Mitchell Admitting Unavailable Horacio Lopez Consulting Unavailable Merlin Rivers Attending Unavailable AdeliCyrus Consulting Unavailable Hinduja, Fay Consulting Unavailable Josafat Hina Consulting Unavailable Zha, Mahsa Consulting Unavailable Arcenio, Brown Consulting Unavailable Lakeshia, Jazmin Consulting Unavailable BitKrzysztof mendiola Consulting Unavailable Deandre Stinson Consulting Unavailable Jose Armando Resendiz Consulting Unavailable Clarissa Easton Consulting Unavailable Saleem Ac Consulting Unavailable Lena Mccann Consulting Unavailable Rudy Callahan Consulting Unavailable Bill Matthews Consulting UnavailJose Douglas Consulting Unavailable Lei Cabrera Consulting Unavailable Jorge Park Consulting Unavailable Crissy Smith Consulting Unavailable Jaky Soria Consulting Unavailable Maverick Mitchell Consulting Unavailable Kingsley PEST CONTROL 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, Leigha Primary Care Unavailable So Jamison Referring UnavailSo Crooks Attending UnavailAmado Doyle Consulting Unavailable Wynn PEST CONTROL 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, Leigha Primary Care Unavailable Errol Adams Referring Unavailable Errol Adams Attending Unavailable Errol Adams Attending Unavailable Wynn PEST CONTROL 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, Leigha Primary Care Unavailable Wynn PEST CONTROL 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, Leigha Referring Unavailable Wynn PEST CONTROL 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, Leigha Primary Care Unavailable Kingsley PEST CONTROL 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, Leigha Referring Unavailable Errol Adams Attending Unavailable Wynn PEST CONTROL 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, Leigha Primary Care Unavailable Wynn PEST CONTROL 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, Leigha Referring Unavailable So Jamison Attending Unavailabl e Wynn PEST CONTROL 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, Leigha Referring Unavailable Wynn PEST CONTROL 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, [facility] Primary Care Unavailable Errol Adams Attending Unavailable Wynn PEST CONTROL 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, Leigha Referring Unavailable Wynn PEST CONTROL 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, [facility] Primary Care Unavailable So Jamison Attending Unavailabl e Wynn PEST CONTROL 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, [facility] Primary Care Unavailable Wynn PEST CONTROL 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, Leigha Referring Unavailable Wynn PEST CONTROL 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, Leigha Attending Unavailable Wynn PEST CONTROL 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, [facility] Primary Care Unavailable Amado Alvarez Consulting Unavailable So Jamison Referring Unavailmartha Jamison, So Attending UnavailSo Crooks Consulting UnavailErrol Flood Attending Unavailable Wynn PEST CONTROL 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, [facility] Primary Care Unavailable Errol Adams Referring Unavailable Errol Adams Consulting Unavailable Wynn PEST CONTROL 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, [facility] Primary Care Unavailable Don Owen Attending Unavailable Wynn PEST CONTROL 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, [facility] Primary Care Unavailable Maikol Sanchez Attending Unavailable Errol Adams Referring Unavailable Wynn PEST CONTROL 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, [facility] Primary Care Unavailable Horacio Lopez Consulting Unavailable Maverick Mitchell Admitting Unavailable Maverick Mitchell Attending Unavailable Cyrus Ball Consulting Unavailable Fay Burkett Consulting Unavailable Josafat Hina Consulting Unavailable Darian, Mahsa Consulting Unavailable Brown Rg Consulting Unavailable Jazmin Asher Consulting Unavailable Krzysztof Estrada Consulting Unavailable Deandre Stinson Consulting Unavailable Jose Armando Resendiz Consulting Unavailable Clarissa Easton Consulting Unavailable Saleem Ac Consulting Unavailable Lena Mccann Consulting Unavailable Rudy Callahan Consulting Unavailable Bill Matthews Consulting UnavailJose Douglas Consulting Unavailable CabreraLei Consulting Unavailable Jorge Park Consulting Unavailable Crissy Smith Consulting Unavailable Jaky Soria Consulting Unavailable Maverick Mitchell Consulting Unavailable Merlin Rivers Attending Unavailable Merlin Rivers Consulting Unavailable Wynn PEST CONTROL 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, [facility] Primary Care Unavailable So Jamison Referring UnavailSo Crooks Attending UnavailErrol Flood Attending Unavailable Wynn PEST CONTROL 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, [facility] Primary Care Unavailable Errol Adams Referring Unavailable Salo Boles Attending Unavailable Wynn PEST CONTROL 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, [facility] Primary Care Unavailable RamanaSalo Referring Unavailable Wynn PEST CONTROL 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, [facility] Primary Care Unavailable So Jamison Attending Unavailabl e So Jamison Referring Unavailabl e Ramana, Salo Attending Unavailable Ramana, Salo Referring Unavailable Wynn PEST CONTROL 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, [facility] Primary Care Unavailable Eron Daigle Referring Unavailable Wynn PEST CONTROL 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, [facility] Primary Care Unavailable So Jamison Attending Unavailabl e Wynn PEST CONTROL 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, [facility] Primary Care Unavailable Wynn PEST CONTROL 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, Leigha Referring Unavailable So Jamison Attending Unavailabl e Ramana, Salo Attending Unavailable Wynn PEST CONTROL 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, [facility] Primary Care Unavailable Wynn PEST CONTROL 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, Leigha Referring Unavailable Wynn PEST CONTROL 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, [facility] Primary Care Unavailable Maikol Sanchez Attending Unavailable Wynn PEST CONTROL 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, [facility] Primary Care Unavailable Wynn PEST CONTROL 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, Leigha Referring Unavailable Wynn PEST CONTROL 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, Leigha Attending Unavailable Wynn PEST CONTROL 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, Leigha Attending Unavailable Wynn PEST CONTROL 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, [facility] Primary Care Unavailable Wynn PEST CONTROL 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, Leigha Referring Unavailable Ramana, Salo Referring Unavailable Ramana, Salo Attending Unavailable Wynn PEST CONTROL 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, [facility] Primary Care Unavailable Ramana, Salo Referring Unavailable Ramana, Salo Attending Unavailable Wynn PEST CONTROL 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, [facility] Primary Care Unavailable Errol Adams Attending Unavailable Wynn PEST CONTROL 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, [facility] Primary Care Unavailable Errol Adams Referring Unavailable Allergies Allergy Classification Reported Allergen(s) Allergy Type Date of Onset Reaction(s) Facility (1 source) Codeine Drug Allergy 12-10-19 15 [place], [place] (1 source) Iodine Drug Allergy 12-10-19 15 [place] (14 sources) Naproxen Drug Allergy 12-20-19 15 Shortness Of Breath [place], [place] (1 source) Penicillins Propensity to adverse reactions to drug 12-10-19 15 [place] (13 sources) Aspirin Drug Allergy 05-22-19 Swelling [facility] Comment on above: swelling of hands (13 sources) levoFLOXacin Drug Allergy 05-22-19 25 Other [facility] (13 sources) Penicillins Allergy to substance 05-22-19 25 Other [facility] (13 sources) Triiodobenzoic Acids Allergy to substance 05-22-19 25 [facility] (1 source) Aspirin Drug Allergy 12-06-19 [facility] Repository (1 source) levoFLOXacin Drug Allergy 12-06-19 [facility] Repository (1 source) Naproxen Drug Allergy 12-06-19 [facility] Repository (1 source) Penicillins Drug allergy (disorder) 12-06-19 [facility] Repository (1 source) Iodinated Contrast Media Drug allergy (disorder) 12-06-19 [facility] Repository Medications Current Medications Medication Drug Class(es) Dates Sig (Normalized) Sig (Original) acetaminophen 325 mg oral tablet (1 source) Start: 04-09-2017 take 2 tablets by mouth every four hours as needed for pain acetaminophen (TYLENOL) 325 MG tablet Take 2 tablets by mouth every 4 hours as needed for Pain 120 tablet 3 04/09/2017 Active ascorbic acid 500 mg chewable tablet (5 sources) Vitamin C Start: 10-11-2024 take 1 tablet by mouth once daily Start: 10-11-2024 take 1 tablet by [facility] once daily Ascorbic Acid (Vitamin C) (Acerola C) 500 mg tablet,chewable Active 500 mg PO DAILY October 11, 2024 12:00am vitamin cholecalciferol 0.05 mg oral capsule (20 sources) Vitamin D Start: 12-05-2024 take 1 capsule by [facility] once daily Start: 09-20-2024 End: 10-11-2024 take 1 capsule by mouth every week Cholecalciferol (Vitamin D3) 1,250 mcg (50,000 unit) capsule Discontinued 1250 ug PO EVERY WEEK September 20, 2024 12:00am October 11, 2024 7:34pm Start: 05-21-2024 End: 09-20-2024 take 1 capsule by mouth once daily Cholecalciferol (Vitamin D3) (Vitamin D3) 50 mcg (2,000 unit) capsule Discontinued 50 ug PO DAILY May 21, 2024 12:00am September 20, 2024 3:59pm Start: 03-19-2024 End: 05-21-2024 take 1 capsule by mouth every week Cholecalciferol (Vitamin D3) 25 mcg (1,000 unit) capsule Discontinued 78830 ug PO EVERY WEEK March 19, 2024 [...] 11/15/2016 Active glucosamine 500 mg oral tablet (8 sources) Start: 09-20-2024 take 1 tablet by mouth once daily halcinonide 0.001 mg/mg topical ointment (1 source) [...] areas qd 60 g 11 08/23/2022 Active Zinc (3 sources) Start: 11-19-2024 take 1 tablet by mouth once daily Zinc 25 mg tablet Active 25 mg PO DAILY November 19, 2024 12:00am Complies with drug therapy Start: 11-19-2024 take 1 tablet by mouth once da noah Completed/Discontinued Medications Medication Drug Class(es) Dates Sig (Normalized) Sig (Original) acetaminophen 325 mg / oxyCODONE hydrochloride 5 mg oral tablet (3 sources) Opioid Agonist Start: 11-19-2024 End: 12-03-2024 Oxycodone-Acetamino phen (Percocet) 5-325 mg tablet Discontinued 1 {tbl} PO Q4H as needed for pain 20 7 0 November 19, 2024 December 03, 2024 11:28am Status post hysterectomy with oophorectomy Acquired absence of both cervix and uterus Acquired absence of ovaries, unilateral atorvastatin 40 mg oral tablet (5 sources) HMG-CoA Reductase Inhibitor Start: 10-12-2024 End: 11-05-2024 take 1 tablet by mouth at bedtime Atorvastatin (Lipitor) 40 mg tablet Discontinued 40 mg PO AT BEDTIME 30 30 2 October 12, 2024 12:00am November 05, 2024 1:06pm ergocalciferol 1.25 mg oral capsule (6 sources) Provitamin D2 Compound Start: 10-11-2024 End: 12-05-2024 Ergocalciferol (Vitamin D2) 1,250 mcg (50,000 unit) capsule Discontinued 1250 ug PO EVERY WEEK October 11, 2024 12:00am December 05, 2024 1:46pm vitamin ibuprofen 800 mg oral tablet (17 sources) Nonsteroidal Anti-inflammatory Drug Start: 11-19-2024 End: 12-03-2024 take 1 tablet by mouth every eight hours as needed for pain Ibuprofen 800 mg tablet Discontinued 800 mg PO Q8H as needed for pain 30 0 November 19, 2024 12:00am December 03, 2024 11:28am Start: 02-22-2019 End: 11-28-2023 Ibuprofen 200 MG tablet Disc ontinued 200 mg PO NEEDED as needed for Headache February 22, 2019 1:00am November 28, 2023 10:41am take 1 tablet by yuan th every six hours as needed for pain ibuprofen (ADVIL;MOTRIN) 200 MG tablet Take 200 mg by mouth every 6 hours as needed for Pain 0 Active triamcinolone acetonide 0.005 mg/mg topical ointment (15 sources) Corticosteroid Start: 02-22-2019 End: 09-20-2024 Triamcinolone [...] Problem Classification Problem Date Documented Date Episodic/Chronic Abdominal hernia (5 sources) Unspecified abdominal hernia without obstruction or gangrene; Translations: [Hernia] Onset: 5 12-05-2024 Episodic Comment on above: Patient is 59-year-o ld female who makes surgical consultation related to newly diagnosed ventral hernia. Based on patient's history it is likely she has had this hernia for many years but attributed to alternative causes. 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 Unfortunately during exam patient's habitus and intolerance of exam limit my ability to fully appreciate the size of the hernia. It does appear to be a large umbilical hernia with soft contents. Overall hernia sac would be estimated approximately 12 x 15 cm. I informed patient and her , however, that the hernia repair is more dependent on the diameter of the hernia neck. In order to determine this information I am requesting CT of the abdomen and pelvis with p.o. and IV contrast. Patient has a history of allergic reaction to iodinated contrast media, but also has been successfully premedicated without subsequent reaction. I have requested a similar course to be taken in this instance. Additionally, I suggested that above a certain size I would recommend she see a hernia specialist for possible component separation, but would not be able to tell her until CT images been completed. Lastly, I reiterated the request from FASTENER SEWING MACHINE OPERATOR that patient follow-up with her PCP regarding her new bradycardia and relative hypotension (albeit asymptomatic). We will initiate communication based on today's vital signs. At the conclusion of today's visit I provided red flag warning signs that patient and her can pay attention for that should move them to immediate evaluation in the emergency department, however, I suspect the risk for this is low given patient's history with the above for many years. Allergic reactions (20 sources) Allergic contact dermatitis; Translations: [Allergic contact dermatitis, unspecified cause] 01-15-2020 Episodic Blindness and vision defects (13 sources) Visual disturbance; Translations: [Unspecified visual disturbance] Onset: 5 10-11-2024 Episodic Chronic ulcer of skin (20 sources) Non-pressure chronic ulcer of unspecified part of right lower leg limited to breakdown of skin; Translations: [Non-pressure chronic ulcer of right lower leg, limited to breakdown of skin] 11-28-2023 Chronic Diabetes mellitus with complications (13 sources) Diabetes mellitus; Translations: [Type 2 diabetes mellitus with unspecified complications] 11-06-2019 Chronic Diabetes mellitus without complication (13 sources) High hemoglobin A1c level; Translations: [Other abnormal glucose] 09-12-2019 Episodic Fluid and electrolyte disorders (13 sources) Dehydration; Translations: [Dehydration] Onset: 5 10-11-2024 Episodic Headache; including migraine (5 sources) Migraine with aura; Translations: [Migraine with aura, not intractable, without status migrainosus] 10-21-2024 Chronic Headache; including migraine (12 sources) Headache; Translations: [Headache] 10-11-2024 Episodic Headache; including migraine (2 sources) Headache; including migraine; Translations: [Headache, unspecified] Onset: Menopausal disorders (17 sources) Postmenopausal bleeding; Translations: [Postmenopausal bleeding] Onset: 5 11-28-2023 Chronic Comment on above: EMB pending. US orde red Nutritional deficiencies (1 source) Vitamin D deficiency, unspecified; Translations: [Vitamin D deficiency, unspecified] Onset: Chronic Other diseases of veins and lymphatics (13 sources) Lymphedema; Translations: [Lymphedema, not elsewhere classified] 01-15-2020 Chronic Other endocrine disorders (20 sources) Primary hyperparathyroidism; Translations: [Primary hyperparathyroidism] 05-01-2024 [...] was described in detail. Other endocrine disorders (17 sources) Hyperparathyroidism; Translations: [Hyperparathyroidism, unspecified] 03-19-2024 Chronic Other endocrine disorders (1 source) Primary hyperparathyroidism; Translations: [Primary hyperparathyroidism] Onset: 5 Chronic Other endocrine disorders (1 source) Hyperparathyroidism, unspecified; Translations: [Hyperparathyroidism, unspecified] Onset: 5 Chronic Other eye disorders (17 sources) Thyroid eye disease; Translations: [Other specified disorders of eye and adnexa] 03-19-2024 Episodic Other female genital disorders (20 sources) Simple endometrial glandular hyperplasia without atypia; Translations: [Benign endometrial hyperplasia] 12-29-2023 Chronic Other female genital disorders (1 source) Benign endometrial hyperplasia; Translations: [Benign endometrial hyperplasia] Onset: 5 Chronic Other female genital disorders (1 source) Endometrial hyperplasia, unspecified; Translations: [Endometrial hyperplasia, unspecified] Onset: 5 Chronic Other female genital disorders (20 sources) Enlarged uterus; Translations: [Hypertrophy of uterus] 11-28-2023 Episodic Other inflammatory condition of skin (2 sources) Psoriasis, unspecified; Translations: [Psoriasis, unspecified] Onset: 8 Chronic Other inflammatory condition of skin (15 sources) Psoriasis; Translations: [Psoriasis, unspecified] Onset: 8 04-07-2017 Chronic Other lower respiratory disease (1 source) Cough; Translations: [Cough] Episodic Other nervous system disorders (12 sources) Slurred speech; Translations: [Slurred speech] 10-11-2024 Episodic Other nervous system disorders (1 source) Slurred speech; Translations: [Slurred speech] Onset: 5 Episodic Other nutritional; endocrine; and metabolic disorders (2 sources) Morbid (severe) obesity due to excess calories; Translations: [Morbid (severe) obesity due to excess calories] Onset: 8 Chronic Other nutritional; endocrine; and metabolic disorders (2 sources) Morbid obesity; Translations: [Morbid (severe) obesity due to excess calories] Onset: 7 02-01-2017 Chronic Other nutritional; endocrine; and metabolic disorders (20 sources) Obesity; Translations: [Obesity, unspecified] 11-28-2023 Chronic Comment on above: Since 05/2022 lost 11 4# [facility] Other nutritional; endocrine; and metabolic disorders (15 sources) Body mass index 30+ - obesity; Translations: [Obesity, unspecified] 10-11-2024 Chronic Other nutritional; endocrine; and metabolic disorders (1 source) Obesity, unspecified; Translations: [Obesity, unspecified] Onset: 5 Chronic Residual codes; unclassified (13 sources) Bilateral lower limb edema; Translations: [Localized edema] 02-14-2019 Episodic Residual codes; unclassified (13 sources) Localized edema; Translations: [Localized edema] 10-09-2019 Episodic Residual codes; unclassified (20 sources) History of parathyroidectomy; Translations: [Other specified [...] this and confirm they will follow-up with [facility] physicians. Residual codes; unclassified (4 sources) History of total hysterectomy with bilateral salpingo-oophorectomy; Translations: [Acquired absence of both cervix and uterus] Onset: 5 11-22-2024 Episodic Comment on above: JV-total robotic hys terectomy, bilateral salpingo- oophorectomy, cystoscopy, rectocele repair Skin and subcutaneous tissue infections (19 sources) Cellulitis, unspecified; Translations: [Cellulitis of left lower limb] Onset: 8 04-07-2017 Episodic Comment on above: work up in process. differential diagnosis is dermatitis Superficial injury; contusion (13 sources) Multiple superficial injuries of lower leg; Translations: [Abrasion, left lower leg, initial encounter] 03-15-2019 Episodic Transient cerebral ischemia (16 sources) Transient cerebral ischemia; Translations: [Transient cerebral ischemic attack, unspecified] Onset: 5 10-11-2024 Chronic Unclassified (2 sources) Body mass index (BMI) 50-59.9 , adult; Translations: [Body mass index (BMI) 50-59.9 , adult] Onset: 8 Chronic Unclassified (5 sources) Possible complicated migraine Past or Other Problems Problem Classification Problem Date Documented Date Episodic/Chronic Other aftercare (2 sources) 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; Translations: [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] Onset: 04-07-2017 Episodic Other connective tissue disease (2 sources) Pain in left leg; Translations: [Pain in left leg] Onset: 04-06-2017 Episodic Other screening for suspected conditions (not mental disorders or infectious disease) (20 sources) Patient encounter status; Translations: [Encounter for screening for osteoporosis] Onset: 03-04-2024 03-19-2024 Episodic Residual codes; unclassified (1 source) Other specified postprocedural states; Translations: [Other specified postprocedural states] Onset: 06-13-2024 Episodic Residual codes; unclassified (1 source) Acquired absence of other organs; Translations: [Acquired absence of other organs] Onset: 06-11-2024 Episodic Results Test Name Value Interpretation Reference Range Facility Surgery Visit Reporton 12-05 Surgery Visit Report [facility] [address] [place] [address] OFFICE VISIT Date of Service: 12/05/24 MR#: [id number] Acct: [id number] Name: SILKE LOPEZ Rep #: [id number] : 1965 Provider: Dr. Errol santiago MD Age/Sex: 59/F Location: [facility] Status: Signed with Addenda ADDENDUM by Dr. Errol Adams MD on 12/05/24 at 1606 Intake Chief Complaint: hernia Allergies aspirin (ASA) Allergy (Intermediate, Verified 12/05/24 13:46) Swelling Iodinated Contrast Media (contrast dye - iodinated) Allergy (Mild, Verified 12/05/24 13:46) Hives levofloxacin (From Levaquin) Allergy (Verified 12/05/24 13:46) Other naproxen Allergy (Verified 12/05/24 13:46) Other Penicillins Allergy (Verified 12/05/24 13:46) Other Medications ???Medication ???Instructions ???Recorded ???Confirmed ???Type glucosamine HCl 500 mg tablet 500 mg PO QDAY 09/20/24 12/05/24 H istory ascorbic acid (vitamin C) 500 mg 500 mg PO DAILY vitamin 10/11/24 1 History chewable tablet (Acerola C) zinc 25 mg tablet 25 mg PO DAILY 11/19/24 12/05/24 H istory cholecalciferol (vitamin D3) 50 50 mcg PO QDAY 12/05/24 12/05/24 H istory mcg (2,000 unit) capsule Assessment and Plan Assessment and Plan (1) Ventral hernia without obstruction or gangrene: Status: Acute Comment: Patient is 59-year-old female who makes surgical consultation related to newly diagnosed ventral hernia. Based on patient's history it is likely she has had this hernia for many years but attributed to alternative causes. 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 Unfortunately during exam patient's habitus and intolerance of exam limit my ability to fully appreciate the size of the hernia. It does appear to be a large umbilical hernia with soft contents. Overall hernia sac would be estimated approximately 12 x 15 cm. I informed patient and her , however, that the hernia repair is more dependent on the diameter of the hernia neck. In order to determine this information I am requesting CT of the abdomen and pelvis with p.o. and IV contrast. Patient has a history of allergic reaction to iodinated contrast media, but also has been successfully premedicated without subsequent reaction. I have requested a similar course to be taken in this instance. Additionally, I suggested that above a certain size I would recommend she see a hernia specialist for possible component separation, but would not be able to tell her until CT images been completed. Lastly, I reiterated the request from FASTENER SEWING MACHINE OPERATOR that patient follow-up with her PCP regarding her new bradycardia and relative hypotension (albeit asymptomatic). We will initiate communication based on today's vital signs. At the conclusion of today's visit I provided red flag warning signs that patient and her can pay attention for that should move them to immediate evaluation in the emergency department, however, I suspect the risk for this is low given patient's history with the above for many years. Orders: Orders Abdomen/Pelvis WITH Contrast Today K46.9 - Unspecified abdominal hernia without obstruction or gangrene Plan Details Additional Comments: Note was completed with the assistance of AI technology and ambient listening. Patient provided their consent for use of this technology during the duration of their visit. Provider has reviewed dictation prior to incorporation within the electronic medical record. 12/05/24 1606 Date Errol Adams MD cc: EDGAR Wynn * Signed Intake Vital Signs 12/03/24 11:18 12/05/24 13:44 Height 5 ft 3 in 5 ft 3 in Weight: 217 lb BMI 38.4 BP 81/57 L Blood Pressure Location Rt radial Position Sitting Respiration 17 Pulse 58 L Pulse Source Monitor Temp 97.2 F L Temp Source Temporal Pulse Oximetry (%) 96 Oxygen Delivery Method room air Intake Visit Reasons: HERNIA - SELF PAY Chief Complaint: hernia Accompanied by: Is patient in pain?: No Allergies aspirin (ASA) Allergy (Intermediate, Verified 12/05/24 13:46) Swelling Iodinated Contrast Media (contrast dye - iodinated) Allergy (Mild, Verified 12/05/24 13:46) Hives levofloxacin (From Levaquin) Allergy (Verified 12/05/24 13:46) Other naproxen Allergy (Verified 12/05/24 13:46) Other Penicillins Allergy (Verified 12/05/24 13:46) Other Medications ???Medication ???Instructions ???Recorded ???Confirmed ???Type glucosamine HCl 500 mg tablet 500 mg PO QDAY 09/20/24 12/05/24 H istory ascorbic acid (vitamin C) 500 mg 500 mg PO DAILY vitamin 10/11/24 1 History chewa (more content not included)... Normal [facility] Radiologic Technology Program Director Office Visit Reporton 12-03-2024 Radiologic Technology Program Director Office Visit Report [facility] [address], [address] [place] [address] OFFICE VISIT Date of Service: 12/03/24 MR#: [id number] Acct: [id number] Name: SILKE LOPEZ Rep #: [id number] : 1965 Provider: Dr. So Harrington DO Age/Sex: 59/F Location: [facility] Status: Signed Intake Vital Signs 09/20/24 15:54 11/19/24 08:44 12/03/24 11:17 12/03/24 11:18 Height 5 ft 3 in 5 ft 3 in 5 ft 3 in 5 ft 3 in Weight: 217 lb 1 oz BMI 38.4 BP 90/66 Intake Visit Reasons: 2 wk TRH BSO Cysto Vascular Nurse Required: No Is patient in pain?: No Allergies aspirin (ASA) Allergy (Intermediate, Verified 12/03/24 11:16) Swelling Iodinated Contrast Media (contrast dye - iodinated) Allergy (Mild, Verified 12/03/24 11:16) Hives levofloxacin (From Levaquin) Allergy (Verified 12/03/24 11:16) Other naproxen Allergy (Verified 12/03/24 11:16) Other Penicillins Allergy (Verified 12/03/24 11:16) Other Medications ???Medication ???Instructions ???Recorded ???Confirmed ???Type glucosamine HCl 500 mg tablet 500 mg PO QDAY 09/20/24 12/03/24 H istory ascorbic acid (vitamin C) 500 mg 500 mg PO DAILY vitamin 10/11/24 1 History chewable tablet (Acerola C) ergocalciferol (vitamin D2) 1,250 1,250 mcg PO QWEEK vitamin 12/03/24 History mcg (50,000 unit) capsule zinc 25 mg tablet 25 mg PO DAILY 11/19/24 12/03/24 H istory Post menopausal: No Patient : No : No PFSH Medical History High cholesterol History of echocardiogram Dehydration Wears glasses Arthritis Scoliosis Non-smoker History of edema Thyroid eye disease Primary hyperparathyroidism Hyperparathyroidism Screening for osteoporosis Surgical History H/O total hysterectomy with bilateral salpingo-oophorectomy (BSO) (11/19/24) S/P parathyroidectomy S/P D C (status post [...] additional social history: - [employer]- Retired HPI 2 wk TRH BSO Cysto Details: SILKE LOPEZ is a 59 year old who presents for 2 week post op robotic hysterectomy, rectocele repair. She states that the stool softener made her stomach too upset but she is going regularly with just prune juice. Her blood pressure is on the lower end today but she is asymptomatic. She has many questions about the hernia seen during surgery. History 4 Elective abortions Hx Para 3 Spontaneous abortions Hx # Term Pregnancies Ectopic pregnancies Hx # Pregnancies Multiple births # of living children 3 Past Pregnancies Del. Date Name GA/Weeks Outcome Route Bth Weight Infant Gen Labor Lgth Anesthesia Del Locatn Provider FOB Unknown [place] Unknown Ngo[place] Unknown [place] Exam GI Other: large ventral hernia again identified. incisions are clean, dry, intact. Coding Level of Care Code No Charge Diagnoses H/O total hysterectomy with bilateral salpingo-oophorectomy (BSO) Z90.710; Z90.722; Z90.79 Assessment and Plan Assessment and Plan (1) H/O total hysterectomy with bilateral salpingo-oophorectomy (BSO): Status: Acute Comment: JV-total robotic hysterectomy, bilateral salpingo-oophorectomy , cystoscopy, rectocele repair Plan pathology still pending recommend patient touches base with her pcp soon to discuss hypotension recommend discussing hernia with her general surgeon. start vaginal estrogen cream. 12/03/24 1233 Date So Osborne Signature: Date (if applicable) CC: Normal [facility] Bedside Glucoseon 11-19-2024 FINGERSTICK GLU 81 mg/dL Normal 74-106 [facility] Comment on above: Result Comment: [facility] [place] OF PATIENT CARE PER NURSING PROTOCOL Performed By: #### L [phone] #### [facility] [address] [place], [address] Discharge Instructionon 10-29 Discharge Instruction [facility] Medical Records Department [address] [place] [address] Instructions for Home/Discharge Instructions 11/19/24 1003 MR#: [id number] Acct: [id number] Name: SILKE LOPEZ Rep #: [id number] : 1965 59 From: So Jamison DO PCP: EDGAR Long Status:REG SDC Discharge Instructions DC O2, CPAP, BIPAP needs Home O2 Discharge instructions: No Dressing / Incision Discharge Activity: May Shower May resume sexual activity in: 8 weeks Weight Bearing Status: Full weight bearing Lifting Restrictions: 10 pounds for 2 weeks Dressing / Incision Call your doctor if your incision/area has: Continuous Slow Oozing, Sudden Increased Bleeding, Increased Pain/ Swelling, Increased Redness and Foul Smelling Discharge Call your doctor if you observe: Fever of 101 or Higher, Using more than 1 pad per hour, Shortness of breath, Chest pain and Uncontrolled pain Suture Line Care: Avoid Pulling/Pushing and Avoid Pinching/Bending Remove Dressing in: 1 week (if present) Cleanse incision/area with: Soap Water and Keep Dressing Clean Dry Follow Up Care Please Follow Up With: So Jamison DO When: Call to make an appointment with your doctor for a postop visit in 2 and 6 weeks Test Results: Test results from this visit will be discussed in further detail at your follow-up appointment, if applicable. Discharge Plan Admission Primary Reason for Your Visit: hysterectomy and rectocele repair Attending Provider: So Jamison Primary Care Provider: Leigha Wynn NP Consulting Providers: Amado Alvarez Instructions Print Language: Sudanese Discharge Orders/Prescriptions Prescriptions: New ibuprofen 800 mg tablet 800 mg PO Q8H PRN (Reason: pain) Qty: 30 0RF oxycodone-acetaminoph en [Percocet] 5-325 mg tablet 1 tab PO Q4H PRN (Reason: pain) 7 Days Qty: 20 0RF Continued glucosamine HCl 500 mg tablet 500 mg PO QDAY Rx Instructions: administer with a meal ergocalciferol (vitamin D2) 1,250 mcg (50,000 unit) capsule 1,250 mcg PO QWEEK ascorbic acid (vitamin C) [Acerola C] 500 mg tablet,chewable 500 mg PO DAILY zinc 25 mg tablet 25 mg PO DAILY Referrals / Follow Up: Leigha Wynn NP, PEST CONTROL 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-C [Primary Care Provider, Family Practice] Disposition Disposition (needs filled in before D/C Order can be placed): Home, Self Care 11/19/24 1006 So Jamison DO CC: EDGAR Wynn; Dr. Amado Alvarez MD Signed ADDENDUM by Dr. So Jamison DO on 11/19/24 at 1327 take colace stool softeners daily for 1 month. use Miralax over the counter daily as needed to prevent excess straining when having a bowel movement. 11/19/24 1327 So Jamison DO cc: EDGAR Wynn; Dr. Amado Alvarez MD * Signed Normal [facility] deOrdered By: So Alonso on 11-19-2024 Glucose [Mass/Vol] 81 mg/dL 74-106 [facility] Comment on above: MANAGEMENT OF PATIEN T CARE PER NURSING PROTOCOL MR/POSTOP.[facility] 11-19-2024 MR/POSTOP.[facility] Medical Records Department [address] [place] [address] Anesthesia Postop Eval I 11/19/24 1349 MR#: [id number] Acct: [id number] Name: SILKE LOPEZ Rep #: [id number] : 1965 59 From: Victorino Elias CRNA PCP: EDGAR Long Status:REG SDC Y Race: C Location: [place] [address] Anesthesia: Postop Eval I Current Vital Signs Temperature: 97.3 F Pulse Rate: 59 Blood Pressure: 110/54 Respiratory Rate: 16 Pulse Ox: 100 Oxygen Delivery Method: Room Air Assessment Airway patent: Yes Spontaneous unlabored respirations: Yes Mental status: Awake and Calm nausea: No Vomiting: No Anesthesia Complication: No Fluid Hydration Crystalloid volume administer (ml): 1,500 Total IV fluid infused: 1,500 Progress Note Anesthesia document: Postop Eval 1 completed: Yes 11/19/24 1350 Date Victorino Elias MANAGER INTEGRATION Cosigner Signature: Date CC: Signed Normal [facility] MR/EHLFXCHE3em 11-19-2024 MR/POSTOPAN2 [facility] Medical Records Department [address] [place] [address] Anesthesia Postop Eval II 11/19/24 1509 MR#: [id number] Acct: [id number] Name: SILKE LOPEZ Rep #: [id number] : 1965 59 From: Virgie Parr MANAGER INTEGRATION PCP: MARION LongC Status:REG SDC Y Race: C Location: [address] Anesthesia Postop Eval I Sum Postop Eval Completion status Anesthesia document: Postop Eval 1 completed: Yes Anesthesia Postop Eval I Summary Anesthesia Postop Eval I Summary: Anesthesia Postop Eval I: Assessment Summary Airway patent Yes 11/19/24 13:50 [email or web address] [email or web address] Spontaneous unlabored Yes 11/19/24 13:50 MANAGER [email or web address] respirations Mental status Awake,Calm 11/19/24 13:50 MANAGER [email or web address] nausea No 11/19/24 13:50 MANAGER [email or web address] Vomiting No 11/19/24 13:50 MANAGER [email or web address] Anesthesia Postop Eval I: Fluid Summary Crystalloid volume administer 1,500 11/19/24 13:50 MANAGER [email or web address] (ml) Colloids volume administered ( ml) Blood Product volume administered (ml) Total IV fluid infused 1,500 11/19/24 13:50 MANAGER [email or web address] Anesthesia Postop Eval I: Summary Notes Anesthesia Complication No 11/19/24 13:50 MANAGER [email or web address] Anesthesia Complication Comment: Post-operative progress note Anesthesia: Postop Eval II Evaluation Mental status: Awake and Calm Pain Level: 2 nausea: No Vomiting: No Complications Anesthesia Complication: No 11/19/24 1509 Date Virgie Parr MANAGER INTEGRATION Cosigner Signature: Date CC: Signed Normal [facility] Operative Reporton 5 Operative Report [facility] Medical Records Department [address] [place] [address] Operative Report 11/19/24 1309 MR#: [id number] Acct: [id number] Name: SILKE LOPEZ Rep #: [id number] : 1965 59 From: So Jamison DO PCP: EDGAR Long Status:REG [facility] Location: [address] Select Codes Urinary/Genital Urinary/Genital CPT Codes: 86169 Cystoscopy, 57043 Posterior colporrhaphy and 02923 TLH+BS/O <250gr uterus Operative Report (Standard) Operative Information Date of Procedure: 11/19/24 Pre-Operative Diagnosis: enlarged uterus, postmenopausal bleeding, endometrial hyperplasia without atypia, rectocele Post-Operative Diagnosis: enlarged uterus, postmenopausal bleeding, endometrial hyperplasia without atypia, rectocele Surgery/Procedure Performed: total robotic hysterectomy, bilateral salpingo-oophorectomy , cystoscopy, rectocele repair learning officer: Yes Multimedia Services Manager: Alanis Luevano Tasks completed by first mate: Closing, Trocar and Retracting Type of Anesthesia: General RN Documented Start/Stop Times: Operation Date: 11/19/24 10:15 Case Time Into Pre-Op 11/19/24 08:19 Out of Pre-Op 11/19/24 10:24 Anesthesia Start 11/19/24 10:27 Into Room 11/19/24 10:27 Procedure Start 11/19/24 10:54 Procedure End 11/19/24 12:52 Anesthesia End 11/19/24 13:03 Out of Room 11/19/24 13:03 Into Recovery 11/19/24 13:06 Procedure Start Time: 10:54 Procedure Stop Time: 12:52 Select all DRAINS/GRAFTS/IMPLANT S that apply: None Estimated Blood Loss: 25cc Fluids Replaced: 1500 Specimen collected: Yes Description of specimen(s) removed: uterus, tubes, ovaries, cervix Description of surgery: Findings: 13 cm uterus, normal appearing ovaries and tubes. Large ventral hernia. on exploration of the abdominal cavity the uterus, adnexa, bowel, and liver were found to be normal. Cystoscopy showed no evidence of leaking at approximately 250 cc of normal saline, positive ureteral orifices and jet flow are seen and no suture material was appreciated in the bladder. Specimens removed: Uterus and cervix, Bilateral tubes and ovaries Reason for surgery: This is a 59-year-old who presented to my office with history of enlarged uterus, postmenopausal bleeding, endometrial hyperplasia, and a rectocele. The planned procedure is for a robotic hysterectomy and rectocele repair the risks benefits and alternatives were discussed with the patient the patient had a clear understanding of the procedure and a consent form was signed. Procedure: The patient was placed in the dorsal low lithotomy position and prepped and draped in the normal sterile fashion both abdominally and in the perineum. Her legs were placed in stirrups a Preston catheter was inserted into the urethra without difficulty. A weighted speculum was placed in the vagina and a single-tooth tenaculum was used to grasp the anterior lip of the cervix. An advincula uterine manipulator was inserted through the cervix without complication. It was then tied into place at the 2 and 10:00 locations on the cervix. Gloves were changed and attention was turned towards the abdomen. A large midline ventral wall hernia was noted measuring approximately 15 cm x 15 cm was noted. This took up the space of the midline of the abdomen where trocars are normally inserted. Because of this a left upper quadrant incision was made with a scalpel after Marcaine injection, and an 8 mm incision was made. An 5 mm trocar was inserted through the laparoscope, then inserted into the abdomen under direct visualization using the laparoscope. Good abdominal placement was noted and no complications were appreciated. The patient was placed in Trendelenburg position and a left lower quadrant 5 mm trocar was inserted into the abdomen under direct visualization. This was to help us place the remaining trocars. The left and right robotic trocars were placed approximately 13 cm lateral to the umbilicus and away from the hernia sac. An air seal device was utilized to create pneumoperitoneum and was placed in the left lower quadrant site. The patient was placed in steep Trendelenburg position. The robot was docked. The hysterectomy was initiated first by taking down the round ligament on each side using the vessel sealer device. The peritoneum between the round ligament and the IP ligament was opened using electrocautery and extended the length of the IP ligament. The IP ligament was then taken down using the vessel sealer device. This freed the ovaries from the sidewall. The broad ligament was then and taken down using the vessel sealer device. Next the bladder flap was taken down without complication. This was done using monopolar cautery to the level of the cervical vaginal junction. After the bladder flap was created, uterine vessels were then isolated and cauter (more content not included)... Normal [facility] Surgery Specimen Level Von 0 11-19-2024 Surgery Specimen Level V -------- Patient Age/Sex Location Account Attending Physician -------- SILKE LOPEZ 59/F [facility] [id number] Yue Hall -------- Specimen: [id number] Received: 11/19/24 Status: SOHAM Ann Num: [id number] Spec Type: UTERUS Subm Dr: Dr. So Jamison, DO HEADER OPERATION: ERAS, robotic total hysterectomy, bilateral salpingo-oopherectomy PRE-OP DIAGNOSIS: Endometrial hyperplasia without atypia, simple, enlarged uterus, postmenopausal bleeding, rectocele TISSUE SUBMITTED: A- Uterus, cervix, bilateral fallopian tubes, bilateral ovaries -------- MICROSCOPIC DIAGNOSIS A. Uterus, fallopian tubes, ovaries, robotic total hysterectomy with bilateral salpingo-oophorectomy : * Cervix: dilated endocervical glands. * Endometrium: endometrial hyperplasia with atypia; endometrial polyp x2 - see note. Note: the remaining endometrium will be submitted for processing and microscopic evaluation, and the findings will be reported in an ADDENDUM. * Myometrium: leiomyoma (1.1 cm). * Serosa: unremarkable. * Right ovary: small benign cortical cyst, corpora albicantia. * Left ovary: small benign cortical cysts, corpora albicantia. * Fallopian tubes: no specific pathologic change x2. MICROSCOPIC DESCRIPTION Slides are reviewed. GROSS DESCRIPTION A. Received in formalin labeled with the patient's name and date of . Designated as uterus, cervix, bilateral fallopian tubes, bilateral ovaries" is a 157 g, 10.8 x 6.7 x 4.3 cm uterus with attached adnexa. The serosa is cárdenas-pink with focal, patchy congestion. The attached cervix is pink-red and somewhat dull, measuring 2.7 x 2.5 cm; the 0.8 cm os is probe patent. Mucoid cysts are present. The specimen is inked as follows: Anterior-greenPosteri je-ccokoYzljmzelcoz-c range. Opening reveals a 7.0 x 3.3 cm endometrial cavity lined by pale cárdenas-pink, granular endometrium measuring up to 0.6 cm thick. There are 2 (grossly) superficial posterior endometrial polyps, 2.7 x 1.3 x 0.3 cm (#1) and 1.8 x 0.7 x 0.3 cm (#2). The myometrium is cárdenas-pink and somewhat trabeculated, measuring up to 2.4 cm thick. A 1.1 cm anterior intramural leiomyoma is identified. The red-purple bilateral fallopian tubes are fimbriated and measure 4.4 x 0.5 cm (L) and 3.7 x 0.7 cm (R) The cárdenas-yellow ovaries are cerebriform and solid and measure 2.3 x 1.0 x 1.0 cm (L) and 1.8 x 1.0 x 0.8 cm (R). Unified Communications Architect sections are submitted as follows: A1: Anterior cervixA2: Posterior cervixA3: Anterior endomyometrium with intramural leiomyomaA4: Anterior endometrium, LUSA5: Anterior endometrium, midA6: Anterior endometrium, cornuA7: Posterior endometrium, LUSA8: Posterior endomyometrium with polyp -------- Patient Age/Sex Location Account Attending Physician -------- SILKE LOPEZ 59/F [facility] [id number] Yue Hall -------- #1(mid)A9: Posterior endomyometrium with polyp #2 (cornu)A10: Posterior endomyometrium (mid)A11: Left fallopian tubeA12: Left fqjqcT89: Right fallopian tubeA14: Right ovary SC 11/19/2024 A. The remainder of the endometrium is submitted, sequentially from the lower uterine segment to the fundus, following histopathologic review as follows: A15-A18: Anterior [id number]: Posterior endometrium SC 12/05/2024 CPT:47433 -------- ADDENDUM Addendum 1 Entered: 12/11/24 This addendum is to report the evaluation of additional endometrial tissue submitted at "[facility]": The endomyometrial junction has been totally submitted for histologic examination. No invasive carcinoma is seen. Focally there may be involvement of adenomyosis. Selected slides/images were reviewed in intradepartmental consultation by Dr Gila Wills (FREIGHT AND PASSENGER AGENT pathology division, [facility]). Addendum Signed (signature on file) Dr. Debbie Taylor MD 12/11/24 568 -------- -------- Patient Age/Sex Location Account Attending Physician -------- MARIA EUGENIASILKE BALBUENA 59/F [facility] [id number] Dr. So Jamison, (more content not included)... Normal [facility] Comment on above: Performed By: #### P SUV ####[facility] [id number] [place], [place], [id number] Absolute lymphocyte countOrd ered By: So Alonso on 2024 Lymphocytes Auto (Unsp spec) [#/Vol] 1.50 10*3/uL 0.83-4.51 [facility] Absolute neutrophil countOrd ered By: So Alonso on 2024 Neutrophils (Bld) [#/Vol] 2.7 10*3/uL 2.0-7.7 [facility] Anion gap in Serum or Plasma Ordered By: So Alonso on 2024 Anion gap [Moles/Vol] 12 mmol/L 5-15 [facility] Automated lymphocyte count a s percentage of total leukocytesOrdered By: So Alonso on 2024 Lymphocytes/100 WBC Auto (Unsp spec) 31.6 % 19-41 [facility] BUN/creatinine ratioOrdered By: So Alonso on 2024 Urea nitrogen/Creatinine [Mass ratio] 24.4 mg/mg High 10-20 [facility] Basophil percentageOrdered B y: So Alonso on 2024 Basophils/100 WBC (Bld) 1.1 % High 0-1 [facility] Bilirubin, totalOrdered By: So Alonso on 2024 Bilirubin [Mass/Vol] 0.45 mg/dL 0.00-1.[address] [facility] CBC W/Diff, Automatedon 10-28 Absolute Lymph 1.50 X10 3/uL Normal 0.83-4.51 [facility] Comment on above: Performed By: #### B TSPAT, L500.4050, L501.9520, L100.0100, L506.1001 #### [facility] [address] [place], [address] Absolute Neut 2.7 X10 3/uL Normal 2.0-7.7 [facility] Comment on above: Performed By: #### B TSPAT, L500.4050, L501.9520, L100.0100, L506.1001 #### [facility] [address] [place], [address] Basophils/100 WBC (Bld) 1.1 % High 0-1 [facility] Comment on above: Performed By: #### B TSPAT, L500.4050, L501.9520, L100.0100, L506.1001 #### [facility] [address] [place], [address] Eosinophils/100 WBC (Bld) 2.3 % Normal 0-5 [facility] Comment on above: Performed By: #### B TSPAT, L500.4050, L501.9520, L100.0100, L506.1001 #### [facility] [address] [place], [address] Erythrocyte distribution width (RBC) [Ratio] 13.2 % Normal 11.6-14.6 [facility] Comment on above: Performed By: #### B TSPAT, L500.4050, L501.9520, L100.0100, L506.1001 #### [facility] [address] [place], [address] Hematocrit (Bld) [Volume fraction] 43.9 % Normal 37-47 [facility] Comment on above: Performed By: #### B TSPAT, L500.4050, L501.9520, L100.0100, L506.1001 #### [facility] [address] [place], [address] Hemoglobin (Bld) [Mass/Vol] 14.5 g/dL Normal 12.0-15.0 [facility] Comment on above: Performed By: #### B TSPAT, L500.4050, L501.9520, L100.0100, L506.1001 #### [facility] [address] [place], [address] IG% 0.200 Normal 0.0-0.9 [facility] Comment on above: Result Comment: IG% - Immature Granulocytes (promyelocytes, myelocytes and metamyelocytes) > 1% indicates that a LEFT SHIFT is Present. Performed By: #### B TSPAT, L500.4050, L501.9520, L100.0100, L506.1001 #### [facility] [address] [place], [address] Lymphocytes/100 WBC (Bld) 31.6 % Normal 19-41 [facility] Comment on above: Performed By: #### B TSPAT, L500.4050, L501.9520, L100.0100, L506.1001 #### [facility] [address] [place], [address] MCH (RBC) [Entitic mass] 32.3 pg High 27.0-32.0 [facility] Comment on above: Performed By: #### B TSPAT, L500.4050, L501.9520, L100.0100, L506.1001 #### [facility] [address] [place], [address] MCHC (RBC) [Mass/Vol] 33.0 g/dL Normal 32-36 [facility] Comment on above: Performed By: #### B TSPAT, L500.4050, L501.9520, L100.0100, L506.1001 #### [facility] [address] [place], [address] MCV (RBC) [Entitic vol] 97.8 fL Normal 81-99 [facility] Comment on above: Performed By: #### B TSPAT, L500.4050, L501.9520, L100.0100, L506.1001 #### [facility] [address] [place], [address] Monocytes/100 WBC (Bld) 7.8 % Normal 0-10 [facility] Comment on above: Performed By: #### B TSPAT, L500.4050, L501.9520, L100.0100, L506.1001 #### [facility] [address] [place], [address] Neutrophils/100 WBC (Bld) 57.0 % Normal 47-70 [facility] Comment on above: Performed By: #### B TSPAT, L500.4050, L501.9520, L100.0100, L506.1001 #### [facility] [address] [place], [address] Nucleated RBC (Bld) [#/Vol] 0 10*3/uL Normal 0-5 [facility] Comment on above: Performed By: #### B TSPAT, L500.4050, L501.9520, L100.0100, L506.1001 #### [facility] [address] [place], [address] Platelet mean volume (Bld) [Entitic vol] 11.0 fL Normal 6.2-12.0 [facility] Comment on above: Performed By: #### B TSPAT, L500.4050, L501.9520, L100.0100, L506.1001 #### [facility] [address] [place], [address] Platelets (Bld) [#/Vol] 293 10*3/uL Normal 150-450 [facility] Comment on above: Performed By: #### B TSPAT, L500.4050, L501.9520, L100.0100, L506.1001 #### [facility] [address] [place], [address] RBC (Bld) [#/Vol] 4.49 10*6/uL Normal 4.2-5.4 [facility] Comment on above: Performed By: #### B TSPAT, L500.4050, L501.9520, L100.0100, L506.1001 #### [facility] [address] [place], [address] RDW SD 47.3 fl High 35.1-43.9 [facility] Comment on above: Performed By: #### B TSPAT, L500.4050, L501.9520, L100.0100, L506.1001 #### [facility] [address] [place], [address] WBC (Bld) [#/Vol] 4.7 10*3/uL Normal 4.4-11.0 [facility] Comment on above: Performed By: #### B TSPAT, L500.4050, L501.9520, L100.0100, L506.1001 #### [facility] [address] [place], [address] Carbon dioxide, total [Moles /volume] in Central venous bloodOrdered By: So Alonso on 2024 CO2 [Moles/Vol] 24.7 mmol/L 21.0-32.0 [facility] Chloride assayOrdered By: Reyes Alonso on 2024 Chloride [Moles/Vol] 107 mmol/L 98-[address] [facility] Comprehensive Metabolic Prof ilon 2024 Albumin [Mass/Vol] 4.0 g/dL Normal 3.4-4.8 [facility] Comment on above: Performed By: #### B TSPAT, L500.4050, L501.9520, L100.0100, L506.1001 #### [facility] [address] [place], [address] Albumin/Globulin [Mass ratio] 1.6 {ratio} Normal 0.9-2.4 [facility] Comment on above: Performed By: #### B TSPAT, L500.4050, L501.9520, L100.0100, L506.1001 #### [facility] [address] [place], [address] ALK PHOS 65 U/L Normal 35-104 [facility] Comment on above: Performed By: #### B TSPAT, L500.4050, L501.9520, L100.0100, L506.1001 #### [facility] [address] [place], [address] ALT [Catalytic activity/Vol] 36 U/L High <=34 [facility] Comment on above: Performed By: #### B TSPAT, L500.4050, L501.9520, L100.0100, L506.1001 #### [facility] [address] [place], [address] AST [Catalytic activity/Vol] 30 U/L Normal <=31 [facility] Comment on above: Performed By: #### B TSPAT, L500.4050, L501.9520, L100.0100, L506.1001 #### [facility] [address] [place], [address] Bilirubin [Mass/Vol] 0.45 mg/dL Normal 0.00-1.[address] [facility] Comment on above: Performed By: #### B TSPAT, L500.4050, L501.9520, L100.0100, L506.1001 #### [facility] [address] [place], [address] BUN/CRE 24.4 RATIO High 10-20 [facility] Comment on above: Performed By: #### B TSPAT, L500.4050, L501.9520, L100.0100, L506.1001 #### [facility] [address] [place], [address] Calcium [Mass/Vol] 9.4 mg/dL Normal 7.6-11.0 [facility] Comment on above: Performed By: #### B TSPAT, L500.4050, L501.9520, L100.0100, L506.1001 #### [facility] [address] [place], [address] Chloride [Moles/Vol] 107 mmol/L Normal 98-[address] [facility] Comment on above: Performed By: #### B TSPAT, L500.4050, L501.9520, L100.0100, L506.1001 #### [facility] [address] [place], [address] CO2 [Moles/Vol] 24.7 mmol/L Normal 21.0-32.0 [facility] Comment on above: Performed By: #### B TSPAT, L500.4050, L501.9520, L100.0100, L506.1001 #### [facility] [address] [place], [address] Creatinine [Mass/Vol] 0.88 mg/dL Normal 0.70-1.20 [facility] Comment on above: Performed By: #### B TSPAT, L500.4050, L501.9520, L100.0100, L506.1001 #### [facility] [address] [place], [address] GAP 12 Normal 5-15 [facility] Comment on above: Performed By: #### B TSPAT, L500.4050, L501.9520, L100.0100, L506.1001 #### [facility] [address] [place], [address] GFR/1.73 sq M.predicted among non-blacks MDRD (S/P/Bld) [Vol rate/Area] 75 mL/min/{1.73_m2} Normal >60 [facility] Comment on above: Result Comment: mL/m in/1.73m2 CKD-EPI Creatinine Equation (2020) Performed By: #### B TSPAT, L500.4050, L501.9520, L100.0100, L506.1001 #### [facility] [address] [place], [address] Globulin (S) [Mass/Vol] 2.6 g/dL Normal 2.2-4.2 [facility] Comment on above: Performed By: #### B TSPAT, L500.4050, L501.9520, L100.0100, L506.1001 #### [facility] [address] [place], [address] Glucose [Mass/Vol] 84 mg/dL Normal 70-99 [facility] Comment on above: Performed By: #### B TSPAT, L500.4050, L501.9520, L100.0100, L506.1001 #### [facility] [address] [place], [address] Potassium [Moles/Vol] 4.5 mmol/L Normal 3.3-5.1 [facility] Comment on above: Performed By: #### B TSPAT, L500.4050, L501.9520, L100.0100, L506.1001 #### [facility] [address] [place], [address] Sodium [Moles/Vol] 143 mmol/L Normal 133-145 [facility] Comment on above: Performed By: #### B TSPAT, L500.4050, L501.9520, L100.0100, L506.1001 #### [facility] [address] [place], [address] T PROT 6.6 g/dL Normal 5.9-8.4 [facility] Comment on above: Performed By: #### B TSPAT, L500.4050, L501.9520, L100.0100, L506.1001 #### [facility] [address] [place], [address] Urea nitrogen [Mass/Vol] 21 mg/dL High 4-19 [facility] Comment on above: Performed By: #### B TSPAT, L500.4050, L501.9520, L100.0100, L506.1001 #### [facility] [address] [place], [address] Eosinophil percentageOrdered By: So Alonso on 2024 Eosinophils/100 WBC (Bld) 2.3 % 0-5 [facility] Erythrocyte distribution wid th ratioOrdered By: So Alonso on 2024 Erythrocyte distribution width (RBC) [Ratio] 13.2 % 11.6-14.6 [facility] Erythrocyte distribution wid th standard deviationOrdered By: So Alonso on 2024 Erythrocyte distribution width (RBC) [Ratio] 47.3 fl High 35.1-43.9 [facility] Glomerular filtration rate ( GFR) estimation/1.73 sq m using serum, plasma, or whole bOrdered By: So Alonso on 2024 GFR/1.73 sq M.predicted among non-blacks MDRD (S/P/Bld) [Vol rate/Area] 75 mL/min/{1.73_m2} >60 [facility] Comment on above: mL/min/1.73m2 CKD-EP I Creatinine Equation (2020) Hematocrit Auto (Bld) [Volum e fraction]Ordered By: So Alonso on 2024 Hematocrit (Bld) [Volume fraction] 43.9 % 37-47 [facility] Hemoglobin measurementOrdere d By: So Alonso on 2024 Hemoglobin (Bld) [Mass/Vol] 14.5 g/dL 12.0-15.0 [facility] Immature granulocytes/100 WB C Auto (Bld)Ordered By: So Alonso on 2024 Immature granulocytes/100 WBC (Bld) 0.200 % 0.0-0.9 [facility] Comment on above: IG% - Immature Granu locytes (promyelocytes, myelocytes and metamyelocytes) > 1% indicates that a LEFT SHIFT is Present. Laboratory - Chemistry and C hemistry - challengeOrdered By: So Alonso on 2024 AST [Catalytic activity/Vol] 30 U/L <32 [facility] MCV (mean corpuscular volume ) determinationOrdered By: So Alonso on 2024 MCV (RBC) [Entitic vol] 97.8 fL 81-99 [facility] Magnesiumon 2024 Magnesium [Mass/Vol] 2.4 mg/dL High 1.5-2.[address] [facility] Comment on above: Performed By: #### L 501.5200 #### [facility] [address] [place], [place] [address], [address] Magnesium measurement (mass/ volume)Ordered By: Amdao Alvarez on 2024 Magnesium (Unsp spec) [Mass/Vol] 2.4 mg/dL High 1.5-2.2 [facility] Mean corpuscular hemoglobin (MCH) determinationOrdered By: So Alonso on 2024 MCH (RBC) [Entitic mass] 32.3 pg High 27.0-32.0 [facility] Mean corpuscular hemoglobin concentration (MCHC) determinationOrdered By: So Alonso on 2024 MCHC (RBC) [Mass/Vol] 33.0 g/dL 32-36 [facility] Mean platelet volume determi nationOrdered By: So Alonso on 2024 Platelet mean volume (Bld) [Entitic vol] 11.0 fL 6.2-12.0 [facility] Monocyte percentageOrdered B y: So Alonso on 2024 Monocytes/100 WBC (Bld) 7.8 % 0-10 [facility] Neutrophil percentageOrdered By: So Alonso on 2024 Neutrophils/100 WBC (Bld) 57.0 % 47-70 [facility] Nucleated red blood cell per centageOrdered By: So Alonso on 2024 Nucleated RBC/100 WBC (Bld) [Ratio] 0 % 0-5 [facility] Platelet countOrdered By: Reyes Alonso on 2024 Platelets (Bld) [#/Vol] 293 10*3/uL 150-450 [facility] Potassium measurement (mass/ volume)Ordered By: So Alonso on 2024 Potassium (Unsp spec) [Mass/Vol] 4.5 mmol/L 3.3-5.1 [facility] RBC Auto (Bld) [#/Vol]Ordere d By: So Alonso on 2024 RBC (Bld) [#/Vol] 4.49 10*6/uL 4.2-5.4 [facility] Serum creatinine measurement (mass/volume)Ordered By: So Alonso on 2024 Creatinine [Mass/Vol] 0.88 mg/dL 0.70-1.20 [facility] Serum globulin measurementOr dered By: So Alonso on 2024 Globulin (S) [Mass/Vol] 2.6 g/dL 2.2-4.2 [facility] Serum glucose measurement (m ass/volume)Ordered By: So Alonso on 2024 Glucose [Mass/Vol] 84 mg/dL 70-99 [facility] Serum or plasma alanine ortiz otransferase (ALT) measurementOrdered By: So Alonso on 2024 ALT [Catalytic activity/Vol] 36 U/L High <35 [facility] Serum or plasma albumin leta urement (mass/volume)Ordered By: So Alonso on 2024 Albumin [Mass/Vol] 4.0 g/dL 3.4-4.8 [facility] Serum or plasma albumin/glob ulin mass ratioOrdered By: So Alonso on 2024 Albumin/Globulin [Mass ratio] 1.6 {ratio} 0.9-2.4 [facility] Serum or plasma alkaline ailyn sphatase measurementOrdered By: So Alonso on 2024 ALP [Catalytic activity/Vol] 65 U/L 35-104 [facility] Serum or plasma calcium leta urement (mass/volume)Ordered By: So Alonso on 2024 Calcium [Mass/Vol] 9.4 mg/dL 7.6-11.0 [facility] Serum or plasma urea nitroge n measurement (mass/volume)Ordered By: So Alonso on 2024 Urea nitrogen [Mass/Vol] 21 mg/dL High 4-19 [facility] Sodium levelOrdered By: Rita Alonso on 2024 Sodium [Moles/Vol] 143 mmol/L 133-145 [facility] TSH DL <= 0.005 mIU/L QnOrde red By: So Alonso on 2024 TSH Qn 2.440 uIU/mL 0.300-4.200 [facility] Thyroid Stim Hormone (TSH)on 2024 TSH 2.440 uIU/mL Normal 0.300-4.200 [facility] Comment on above: Performed By: #### B TSPAT, L500.4050, L501.9520, L100.0100, L506.1001 #### [facility] [address] [facility] [place], [address] Total proteinOrdered By: Moriah Alonso on 2024 Protein [Mass/Vol] 6.6 g/dL 5.9-8.4 [facility] Type AND Screen - PAT ONLYon 2024 Ab SCREEN GEL Negative Normal [facility] Comment on above: Order Comment: [id number] No N N S [id number] TOTAL HYSTERERCTOMY BSO PREOP Performed By: #### B TSPAT, L500.4050, L501.9520, L100.0100, L506.1001 #### [facility] [address] [place], [address] Vitamin D,25 Hydroxyon 11-12 Vitamin D 25-OH 36.5 ng/mL Normal 30-100 [facility] Comment on above: Result Comment: Magdalena min D Status Deficiency: <20 ng/mL (50nmol/L) Insufficiency: 20-30 ng/mL (50-75 nmol/L) Sufficiency: 30-100 ng/mL (75-250 nmol/L) Toxicity: >100 ng/mL (>250 nmol/L) Performed By: #### B TSPAT, L500.4050, L501.9520, L100.0100, L506.1001 #### [facility] [address] [facility] [place], [address] White blood cell (WBC) count Ordered By: So Alonso on 2024 WBC (Bld) [#/Vol] 4.7 10*3/uL 4.4-11.0 [facility] MR/PATJudi 11-05-2024 MR/PATEMILY [facility] Medical Records Department [address] [facility] [place] [address] PAT - Anesthesia 11/05/24 1612 MR#: [id number] Acct: [id number] Name: SILKE LOPEZ Rep #: [id number] : 1965 58 From: Amado Alvarez MD PCP: EDGAR Long Status:PRE [facility] Y Race: C Location: [facility] Pre-Assessment Diagnosis/Proposed Procedure Planned Operative Procedure(s): TOTAL ROBOTIC HYSTERECTOMY BILATERAL SALPINGO-OOPHORECOTMY , CYTSOSCOPY, RECTOCELE REPAIR Anesthesia History Anesthesia History - tripe finisher: Anesthesia History - tripe finisher Hx Hospitalization Yes: SEP 2024 11/05/24 13:07 Any Problems With Anesthesia No 11/05/24 13:07 Cholinesterase deficiency No 11/05/24 13:07 You/Your Family Experience No 11/05/24 13:07 fever (hyperthermia) with Relationship Recent Exposure to Contagious No 06/04/24 06:38 Disease Does patient have nerve No 11/05/24 13:07 stimulator Patient instructed to have device shut off --Does patient have Pacemaker or ICD? When Was Last Pacemaker Check QUESTION #4 FULL TEXT: You/Your Family Experience fever (hyperthermia) with Anesthesia Last Oral Intake Last Oral intake: Last Oral Intake NPO since Meds taken in AM with sips of water? Meds patient instructed to take am of surgery PONV PONV - tripe finisher: PONV - tripe finisher Female Yes 11/05/24 13:07 HX of Motion Sickness No 11/05/24 13:07 HX of N/V After Surgery No 11/05/24 13:07 Non-Smoker Yes 11/05/24 13:07 Duration of Surgery greater Yes 11/05/24 13:07 than 60 minutes Number of Risk Factors 3 11/05/24 13:07 PONV Score Moderate Risk 11/05/24 13:07 Height Weight Height Weight: Anesthesia: Height Weight Height 5 ft 3 in 09/20/24 15:54 Respiratory Assessment Respiratory Assessment - tripe finisher: Respiratory Tract Infection Hx - tripe finisher Hx Respiratory Tract Infection No 11/05/24 13:07 STOP Sleep Apnea STOP Sleep Apnea - tripe finisher: STOP Sleep Apnea - tripe finisher Hx Hypertension No 11/05/24 13:07 Hx Sleep Apnea No 11/05/24 13:07 CPAP BIPAP Do you snore loudly (louder No 11/05/24 13:07 than talking or can be heard Do you often feel tired/ No 11/05/24 13:07 fatigued/ sleepy during daytime? Has anyone observed you stop No 11/05/24 13:07 breathing during sleep? STOP Results Negative 11/05/24 13:07 QUESTION #5 FULL TEXT : Do you snore loudly (louder than talking or can be heard through closed doors)? 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 Specify any problems Hx of Preganancy in last 3 No 11/05/24 13:07 Months Nurse Filling Out Transfusion [email or web address] 11/05/24 13:07 Questions: Date: 11/05/24 11/05/24 13:07 Time: 13:11 11/05/24 13:07 Patient unable to answer at this time (ie. confused, unrespo /Reproductio n History /Reproductiv e History - tripe finisher: /Reproductiv e Hx- tripe finisher Hx Now Gestational Age (in weeks): EDC: Hx Hx Para Hx Section SAB No 09/20/24 15:54 [facility] Medical History (Updated 11/05/24 @ 13:14 by Nixon Arboleda) High cholesterol History of echocardiogram Dehydration Wears glasses Arthritis Scoliosis Non-smoker History of edema Thyroid eye disease Primary hyperparathyroidism Hyperparathyroidism Screening for osteoporosis Home Medications ???Medication ???Instructions ???Recorded ???Last Taken ???Type glucosamine HCl 500 mg tablet 500 mg PO QDAY 09/20/24 10/11/24 1 3:30 History 500 mg ascorbic acid (vitamin C) 500 mg 500 mg PO DAILY vitamin 10/11/24 0 10/11/24 13:30 History chewable tablet (Acerola C) ergocalciferol (vitamin D2) 1,250 1,250 mcg PO QWEEK vitamin 10/05/24 History mcg (50,000 unit) capsule Allergy/AdvReac Type Severity Reaction Status Date / Time aspirin (ASA) Allergy Intermediate Swelling Verified 11/05/24 13:06 Iodinated Contrast Media Allergy Mild Hives Verified 11/05 (more content not included)... Normal [facility] Radiologic Technology Program Director Office Visit Reporton 10-21-2024 Radiologic Technology Program Director Office Visit Report [facility] [address], [address] [place] [address] OFFICE VISIT Date of Service: 10/21/24 MR#: [id number] Acct: [id number] Name: SILKE LOPEZ Rep #: [id number] : 1965 Provider: Dr. So Harrington DO Age/Sex: 58/F Location: [facility] Status: Signed Intake Vital Signs 09/20/24 15:54 10/12/24 11:48 10/21/24 10:09 10/21/24 10:09 Height 5 ft 3 in 5 ft 3 in 5 ft 3 in 5 ft 3 in Weight: 218 lb 2 oz BMI 38.6 BP 78/54 L Intake Visit Reasons: TRHBSO Cysto Vascular Nurse Required: No Is patient in pain?: No Allergies aspirin (ASA) Allergy (Intermediate, Verified 10/21/24 10:09) Swelling Iodinated Contrast Media (contrast dye - iodinated) Allergy (Mild, Verified 10/21/24 10:09) Hives levofloxacin (From Levaquin) Allergy (Verified 10/21/24 10:09) Other naproxen Allergy (Verified 10/21/24 10:09) Other Penicillins Allergy (Verified 10/21/24 10:09) Other Medications ???Medication ???Instructions ???Recorded ???Confirmed ???Type glucosamine HCl 500 mg tablet 500 mg PO QDAY 09/20/24 10/21/24 H istory ascorbic acid (vitamin C) 500 mg 500 mg PO DAILY vitamin 10/11/24 0 10/21/24 History chewable tablet (Acerola C) ergocalciferol (vitamin D2) 1,250 1,250 mcg PO QWEEK vitamin 10/21/24 History mcg (50,000 unit) capsule atorvastatin 40 mg tablet (Lipitor) 40 mg PO QHS 30 days #30 tabs 0 10/12/24 10/21/24 Rx Post menopausal: No Patient : No : No PFSH Medical History Dehydration Wears glasses Arthritis Scoliosis Non-smoker History of [...] 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 She presented initially with postmenopausal bleeding. A biopsy showed simple endometrial hyperplasia without atypia. Ultrasound shows an enlarge 13 cm uterus, likely adenomyosis. She is status post a parathyroidectomy and has lost over 50 pounds intentinally. History 4 Elective abortions Hx Para 3 Spontaneous abortions Hx # Term Pregnancies Ectopic pregnancies Hx # Pregnancies Multiple births # of living children 3 Past Pregnancies Del. Date Name GA/Weeks Outcome Route Bth Weight Infant Gen Labor Lgth Anesthesia Del [facility] Provider FOB Unknown Spencer Unknown Ngozi Unknown [...] of Care Code Off vis,est,level 4 Diagnoses Pre-op evaluation Z01.818 Obesity (BMI 30-39.9) E66.9 Brain TIA G45.9 S/P parathyroidectomy Z98.890; Z90.89 Endometrial hyperplasia without atypia, simple N85.01 Enlarged uterus N85.2 Postmenopausal bleeding N95.0 Obesity E66.9 Assessment and Plan Assessment and Plan (1) Pre-op evaluation: Status: Acute (2) Obesity (BMI 30-39.9): Status: Acute (3) Brain TIA: Status: Acute (4) S/P parathyroidectomy: Status: Acute Comment: Patient 58-year-old [...] denies any wound concerns or evidence of pare (more content not included)... Normal [facility] 12 Lead EKGon 10-12-2024 12 Lead EKG [facility] Cardiovascular Services [address] [place] [address] 12 Lead EKG 10/12/24 0035 MR#: [id number] Acct: [id number] Name: SILKE LOPEZ Rep #: [id number] : 1965 58 From: Maikol Sanchez MD Attending Dr: Dr. Merlin Rivers MD Status: DIS PARKER Ordering Dr: Maverick Mitchell DO Date: 10/12/24 Location: [facility] Sex: F C Admitted: 10/11/24 Test Reason : CP Blood Pressure : */* mmHG Vent. Rate : 41 BPM Atrial Rate : 41 BPM P-R Int : 164 ms QRS Dur : 100 ms QT Int : 506 ms P-R-T Axes : 49 -5 41 degrees QTcB Int : 417 ms Marked sinus bradycardia Cannot rule out Anterior infarct , age undetermined Abnormal ECG When compared with ECG of 11-Oct-2024 17:39, MANUAL COMPARISON REQUIRED DATA IS UNCONFIRMED Confirmed by MAIKOL SANCHEZ MD ([id number]), supervising film or videotape editor RAY HAUSER ([id number]) on 10/15/2024 6:14:52 AM Referred By: Confirmed By: MAIKOL SANCHEZ MD 10/15/24 0614 Date Maikol Sanchez MD CC: EDGAR Wynn; Dr. Maverick Mitchell DO; Dr. Merlin Rivers MD Signed Normal [facility] Amphetamine detection with 1 000 ng/mL as cutoffOrdered By: Maverick Abdalla on 10-12-2024 Amphetamines Screen method >1000 ng/mL Ql (U) Negative < 200 ng/mL [facility] Brain without Contraston Brain without Contrast [facility] Imaging Services [address] [place] [address] Brain without Contrast MR#: [id number] Acct: [id number] Name: SILKE LOPEZ Rep #: [id number] : 1965 F 58 From: Mary Ann Walters MD PCP: EDGAR Long Status: ADM PARKER Study: Brain without Contrast Date of Exam: 10/12/24 Exam# [id number] Ordering Dr: Maverick Micthell DO PROCEDURE: BRAIN WITHOUT CONTRAST 10/12/2024 REASON FOR EXAM: EVALUATE FOR CVA. TECHNIQUE: BRAIN WITHOUT CONTRAST Multiplanar and multisequence images were obtained. FINDINGS: BRAIN: No restricted diffusion to indicate acute infarction. No intracranial mass or hemorrhage. No midline shift or extra-axial fluid collection. No sulcal effacement. No cerebellar tonsillar ectopia. The central arterial and venous flow voids are patent. VENTRICLES: No hydrocephalus. ORBITS: The orbits are normal. SINUSES AND MASTOIDS: The sinuses and mastoid air cells are clear. BONES: No focal osseous lesion. MRI/Brain without Contrast IMPRESSION: No acute intracranial abnormality. Reading Location: [facility] CC: ISRRA[place]-Dilma Wynn; Dr. Maverick Mitchell DO Window Display Designer: Signed Normal [facility] Calculated very low density lipoprotein (VLDL) cholesterol measurementOrdered By: Maverick Abdalla on 10-12-2024 Calculated very low density lipoprotein (VLDL) cholesterol measurement 7 mg/dL 5-40 [facility] Discharge Instructionon 09-27 Discharge Instruction [facility] Medical Records Department [address] [place] [address] Instructions for Home/Discharge Instructions 10/12/24 1141 MR#: [id number] Acct: [id number] Name: SILKE LOPEZ Rep #: [id number] : 1965 58 From: Merlin Rivers MD PCP: EDGAR Long Status:ADM PARKER Discharge Instructions DC O2, CPAP, BIPAP needs Home O2 Discharge instructions: No Dressing / Incision Discharge Activity: Return to Normal Activity Weight Bearing Status: Weight bearing as tolerated Dressing / Incision Call your doctor if you observe: Fever of 101 or Higher, Coldness, Increased Pain, Numbness or Tingling, Change in Color, Inability to urinate, Inability to have a bowel movement, Shortness of breath, Dizziness, Fainting spells, Swelling in the ankles, Chest pain, Prolonged hiccupping, Increased palpitations (irregular heartbeat) and Calf discomfort Follow Up Care When: IN 2 WEEKS Test Results: Test results from this visit will be discussed in further detail at your follow-up appointment, if applicable. Discharge Plan Admission Admit Date/Time: 10/11/24 20:51 Primary Reason for Your Visit: Acute stroke ruled out Attending Provider: Merlin Rivers Primary Care Provider: Leigha Wynn NP Consulting Providers: Horacio Lopez; Cyrus Ball; Fay Burkett; Hina Maurice; Mahsa Farmer; Brown Rg; Jazmin Asher; Krzysztof Estrada; Deandre Stinson; Jose Armando Resendiz; Clarissa Easton; Saleem Ac; Lena Mccann; Rudy Callahan; Bill Matthews; Jose Billingsley; Lei Cabrera; Jorge Park; Crissy Smith; Jaky Soria; Maverick Mitchell Discharge Orders/Prescriptions Prescriptions: New atorvastatin [Lipitor] 40 mg tablet 40 mg PO QHS 30 Days Qty: 30 2RF Continued glucosamine HCl 500 mg tablet 500 mg PO QDAY Rx Instructions: administer with a meal ergocalciferol (vitamin D2) 1,250 mcg (50,000 unit) capsule 1,250 mcg PO QWEEK ascorbic acid (vitamin C) [Acerola C] 500 mg tablet,chewable 500 mg PO DAILY Referrals / Follow Up: Rio Brower MD [Non-Staff -Ordering Privileges] - Within 1 Month (Possible complicated migraine) Leigha Wynn NP, PEST CONTROL 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-C [Primary Care Provider] - Within 2 Weeks Disposition Disposition (needs filled in before D/C Order can be placed): Home, Self Care 10/12/24 1147 Merlin Rivers MD CC: Hina Maurice; Lena Mccann; EDGAR Wynn; Jose Billingsley; Mahsa Farmer MD; Fay Burkett MD; Horacio Lopez MD; Dr. Cyrus Ball MD; Dr. Maverick Mitchell DO; Dr. Brown Rg MD; Dr. Jazmin Asher MD; Dr. Deandre Stinson MD; Dr. Krzysztof Estrada MD; Dr. Jose Armando Resendiz MD; Dr. Saleem Ac DO; Dr. Bill Matthews MD; Dr. Rudy Callahan MD; Dr. Lei Cabrera MD; Dr. Jorge Park MD; Dr. Crissy Smith MD; Clarissa Easton DO; Jaky Soria MD Signed Normal [facility] Folates,Serum (Folic Acid)on 10-12-2024 FOLATES,SERUM 10.50 ng/mL Normal 4.60-34.80 [facility] Comment on above: Result Comment: Hemo lysis, Results will be affected, Requires Recollection. Performed By: #### L 506.0200 ####[facility] [address] [place], [address] L501.4021on 10-12-2024 Trop T High Sen 6 ng/L Normal <=14 [facility] Comment on above: Performed By: #### L 501.9520 #### [facility] Laboratory [address] [place], [address] LDL calc ser/plasOrdered By: Maverick Abdalla on 10-12-2024 Cholesterol in LDL [Mass/Vol] 147 mg/dL [facility] Comment on above: Hnfuzdbdrw=080-183 m g/dL & Higher Knxr=047 mg/dL or greaterFriedwald Equation for LDL-C Limited echocardiogram repor tOrdered By: Don Owen on 10-12-2024 Study report [facility] Cardiovascular Services [address] [place] [address] Echo, Limited Study 10/12/24 0815 MR#: [id number] Acct: [id number] Name: SILKE LOPEZ Rep #:[id number] : 1965 58 From: Don Turner Attending Dr: Dr. Merlin Rivers MD Status: ADM PARKER Ordering Dr: Maverick Mitchell DO Date: 10/11/24 Location: [facility] Sex: F C Admitted: 10/11/24 Reason For Study Reason For Study: TIA/CVA Procedure This was a limited 2D transthoracic echocardiogram. Exam performed portable in patient room. Left Ventricle Normal left ventricle. Left ventricular systolic function is normal. Normal diastololic function. The LV ejection fraction is 60 %. No regional wall motion abnormalities noted. Right Ventricle Normal right ventricle. Atria The left and right atria are normal. Bubble contrast study is negative for PFO/ASD. Mitral Valve No eccentric mitral valve insufficiency. Tricuspid Valve Normal tricuspid valve. Right ventricular systolic pressure estimated to be 25 mmHg. Mild (1+) tricuspid valve insufficiency. Aortic Valve There is no aortic stenosis. Pulmonic Valve Normal pulmonic valve. Great Vessels Normal sized aortic root. Inferior vena cava collapse with respiration. Pericardium/Pleural No pericardial effusion. Medication Performed a rapid injection of agitated mix of 9 cc saline and 1cc air to assessfor atrial septal defect. MMode/2D Measurements & Calculations LVIDd: 5.0 cm IVSd: 0.83 cm LAV(MOD-bp): 55.0 ml LVIDs: 2.6 cm LVPWd: 0.80 cm RVDd: 3.6 cm FS: 47.9 % LAV(MOD-bp) Indexed: 27.2 ml/m2 LAV(MOD-sp2): 57.1 ml LAV(MOD-sp4): 52.4 ml SV(MOD-sp4): 56.5 ml LVAd ap4: 27.8 cm2 LVAd ap2: 25.9 cm2 LVLd ap4: 7.5 cm LVLd ap2: 7.6 cm SI(MOD-sp4): 27.9 ml/m2 EDV(MOD-sp4): 85.6 ml EDV(MOD-sp2): 74.3 ml EDV(sp4-el): 87.3 ml EDV(sp2-el): 74.7 ml LVAs ap4: 14.8 cm2 LVAs ap2: 14.3 cm2 LVLs ap4: 6.4 cm LVLs ap2: 6.4 cm ESV(MOD-sp4): 29.1 ml ESV(MOD-sp2): 27.5 ml ESV(sp4-el): 29.1 ml ESV(sp2-el): 27.0 ml EF(MOD-sp4): 66.0 % EF(MOD-sp2): 62.9 % EF(sp4-el): 66.7 % __ SV(MOD-sp2): 46.8 ml SV(sp4-el): 58.3 ml Ao sinus diam: 3.2 cm SI(MOD-sp2): 23.1 ml/m2 Ao ST Junction: 2.6 cm LA dimension(2D): 3.6 cm LA A4 area: 19.0 cm2 RA A4 area: 15.0 cm2 TAPSE: 2.3 cm Time Measurements MV dec time: 0.18 sec Doppler Measurements & Calculations MV E max yaquelin: 85.7 cm/sec Lat Peak E' Yaquelin: 14.4 cm/sec Med Peak E' Yaquelin: 9.8 cm/sec MV A max yaquelin: 69.6 cm/sec E/E' lat: 5.9 E/E' med: 8.8 MV E/A: 1.2 TR max yaquelin: 188.9 cm/sec MV dec slope: 478.1 cm/sec2 TR max P.3 mmHg ECHO/Echo, Limited Study Interpretation Summary Left ventricular systolic function is normal. Bubble contrast study is negative for PFO Ordering Physician: Maverick Mitchell Performed By: Mary Ann Mallory RDCS 10/12/24 1207 Date _ Don Owen MD CC: EDGAR Wynn; Dr. Maverick Mitchell DO; Dr. Merlin Rivers MD ~ Date Dictated: 10/12/24814 Date Transcribed: 10/12/24 1207 Window Display Designer: Signed [facility] Lipid Profileon 10-12-2024 CHOL:HDL 4.87 Normal [facility] Comment on above: Order Comment: Comme nts: NPO at [place] prior to lipid panel Performed By: #### L [id number] #### [facility] [address] [place], [address] Cholesterol [Mass/Vol] 194 mg/dL Normal <=200 [facility] Comment on above: Order Comment: Comme nts: NPO at [place] prior to lipid panel Result Comment: Chol esterol level, Desirable <200 mg/dL Borderline high cholesterol 200-239 mg/dL High cholesterol >=240 mg/dL Recommendations of the NCEP Adult Treatment Panel for the following risk-cutoff thresholds for the [place] population. Performed By: #### L 501.9520 #### [facility] [address] [place], [address] Cholesterol in HDL [Mass/Vol] 40 mg/dL Normal [facility] Comment on above: Order Comment: Comme nts: NPO at [place] prior to lipid panel Result Comment: Liv onal Cholesterol Education Program (NCEP) guidelines: <40 mg/dL: Low HDL-cholesterol (major risk factor for CHD) >= 60 mg/dL: High HDL-cholesterol (negative risk factor for CHD) HDL-cholesterol is affected by a number of factors, e.g. smoking, exercise, hormones, sex and age. Performed By: #### L [id number] #### [facility] [address] [place], [address] Cholesterol in LDL [Mass/Vol] 147 mg/dL Normal [facility] Comment on above: Order Comment: Comme nts: NPO at [place] prior to lipid panel Result Comment: Bord efxoyn=952-949 mg/dL Higher Htes=342 mg/dL or greater Friedwald Equation for LDL-C Performed By: #### L 501.9520 #### [facility] [address] [place], [address] Cholesterol in VLDL [Mass/Vol] 7 mg/dL Normal 5-40 [facility] Comment on above: Order Comment: Comme nts: NPO at [place] prior to lipid panel Performed By: #### L [id number] #### [facility] [address] [place], [address] Triglyceride [Mass/Vol] 37 mg/dL Normal [facility] Comment on above: Order Comment: Comme nts: NPO at [place] prior to lipid panel Result Comment: The drugs N-Acetylcysteine and Metamizole may falsely depress this assay. Normal range: <150 mg/dL Borderline High: 150-199 mg/dL High: 200-499 mg/dL Very High: >500 mg/dL Performed By: #### L [id number] #### [facility] [address] [place], [address] MR/CON.PCM.NEon 10-12-2024 MR/CON.PCM.NE [facility] Medical Records Department [address] [place] [address] Consultation - Neurology 10/12/24 1027 MR#: [id number] Acct: [id number] Name: SILKE LOPEZ Rep #: [id number] : 1965 58 From: Mahsa Farmer MD PCP: EDGAR Long Status:DIS PARKER Location: [place] [address] Assessment and Plan: Neuro Assessment/Plan SILKE LOPEZ is a 58 F with a past medical history of chronic lower extremity dermatitis with ulceration, psoriasis, PVD, history of DM-2;, being evaluated by Teleneurology for vision obscurations and change in speech. OVerall symptoms consistent with complex migraine. Unlikely TIA given the progression of symptoms and type she had and likely that she has migraines at baseline. Diagnosis: complex migraine No further workup at this time I personally attended this patient and spent a total time of 45minutes evaluating this patient including clinical assessment, review of chart, medical history imaging, and determining appropriate treatment and workup. HPI Consult Data Date of Consult: 10/12/24 HPI Narrative HPI Narrative: SILKE LOPEZ, is a 58 F with a past medical history of obesity (class II); with BMI of 39.5 this admission, chronic lower extremity dermatitis with ulceration, psoriasis, PVD, history of DM-2; currently not on treatment, history of hyperparathyroidism; s/p parathyroidectomy, thyroid eye disease, history of iodine allergy and OA; on glucosamine who presents to [facility] ER complaining of slurred speech and visual changes. Mrs. Lopez reports her symptoms began approximately 1:30 PM earlier today while she was at the library when she began to have visual disturbance with what she describes as a "lolly-like" shape that seemed to come from the Right of her visual field followed by a 7/10 headache that began on the Right-side of her head. She then drove herself home and when she saw her when he noticed abnormal speech which made it difficult to understand her so he decided to bring her in for further evaluation and treatment for presumed CVA. She states her visual disturbance and slurred speech have resolved and her headache has moved to the Left-side of her head and is currently 2/10. She denies history of TIA/CVA, head trauma, similar previous episodes, recent illness or recent medication changes. She also denies related fever, chills, runny nose, sore throat, ear pain, SOB, cough, chest pain, palpitations, heart racing, dysuria, hematuria or rash but she does admit to recent headache. In the ER she underwent a head CT without contrast that revealed no ICH, mass effect or midline shift f ollowed by CTA of the head and neck with IV contrast that showed common origin of Left common carotid artery and Right innominate artery with no evidence of aneurysm or dissection complicated by laboratory evidence of Dehydration; with BUN/creatinine ratio of 30 with clinical evidence of TIA vs CVA; with transient visual disturbance with slurred speech and she was then admitted to the PCU under observation status for ongoing care for a stay that is expected to expected to be less than 2 midnights. Neurologic History Symptoms lasted for 2 hrs - the diamon shape in her vision came and stayed, the lolly shape looked bright and wazy. RUBY was bilateral. Pt endrosed a headache the night before and suddenly got the headache the next day at the library. She will get stress headaches, twice a month and will usually be bilaterally behind the eyes and the temples and be throbbing. Does not get senstive to the light or nausea with normal headaches - occasionally has had the nausea but rarely she later states. Yesterday she was feeling sensitive to the light, slight nausea. The headache lasted until 2 hrs ago and lasted all night. When home and having difficulty speaking and kept having paraphasias and having some difficulty saying it. Would happen only occasionally and still could understand her. The speaking difficulty lasted 2-3 hrs. Symptoms improved after her headache got a little better. No numbness no weakness no diplopia with these symptoms. No new medications, no change in medications. Neurologic Exam -? General: Laying comfortably in bed; in no acute distress. -? HENT: Normal oropharynx and mucosa. Normal external appearance of ears and nose. Exophthalmos. -? Neck: Supple, no pain or tenderness -? CV:??? No peripheral edema. -? Pulmonary:??? Normal respiratory effort. -? Ext: No cyanosis, edema, or deformity -? Skin: No rash. Normal palpation of skin.??? -? Musculoskeletal: full range of motion; no joint tenderness. Normal digits and nails b (more content not included)... Normal [facility] Magnetic resonance imaging r eportOrdered By: Mary Ann Walters on 10-12-2024 Study report [facility] Imaging [place] [address] Brain without Contrast MR#: [id number] Acct: [id number] Name: SILKE LOPEZ Rep #: [id number] : 1965 F 58 From: Michel Walters MD PCP: EDGAR Long Status: ADM IN O Study:Brain without Contrast Date of Exam: 10/12/24 Exam# [id number] Ordering Dr: Maverick Díaz DO PROCEDURE: BRAIN WITHOUT CONTRAST 10/12/2024 REASON FOR EXAM: EVALUATE FOR CVA. TECHNIQUE: BRAIN WITHOUT CONTRAST Multiplanar and multisequence images were obtained. FINDINGS: BRAIN: No restricted diffusion to indicate acute infarction. No intracranial mass or hemorrhage. No midline shift or extra-axial fluid collection. No sulcal effacement. No cerebellar tonsillar ectopia. The central arterial and venous flow voids are patent. VENTRICLES: No hydrocephalus. ORBITS: The orbits are normal. SINUSES AND MASTOIDS: The sinuses and mastoid air cells are clear. BONES: No focal osseous lesion. MRI/Brain without Contrast IMPRESSION: No acute intracranial abnormality. Reading Location: [facility] CC: PEST CONTROL 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-Dilma Wynn; Dr. Maverick Mitchell DO ~ Window Display Designer: Signed [facility] No Panel InformationOrdered By: Maverick Abdalla on 10-12-2024 Urine Buprenorphine Qualitative Negative < 200 ng/mL [facility] Urine Oxycodone Screen Negative < 100 ng/mL W [facility] Quantitative urine opiates m easurementOrdered By: Maverick Abdalla on 10-12-2024 Opiates Ql (U) Negative < 300 ng/mL [facility] Screening total cholesterol/ high density lipoprotein (HDL) cholesterol ratioOrdered By: Maverick Abdalla on 10-12-2024 Cholesterol.total/Chol esterol in HDL [Mass ratio] 4.87 {ratio} [facility] Screening urine fentanyl vishnu surementOrdered By: Maverick Abdalla on 10-12-2024 fentaNYL Screen Ql (U) Negative [facility] Serum or plasma cholesterol in HDL measurement (mass/volume)Ordered By: Maverick Abdalla on 10-12-2024 Cholesterol in HDL [Mass/Vol] 40 mg/dL >40 [facility] Comment on above: National Cholesterol Education Program (NCEP) guidelines:<40 mg/dL: Low HDL-cholesterol (major risk factor for CHD)>= 60 mg/dL: High HDL-cholesterol (negative risk factor for CHD)HDL-cholesterol is affected by a number of factors, e.g. smoking, exercise, hormones, sex and age. Serum or plasma cholesterol measurement (mass/volume)Ordered By: Maverick Abdalla on 10-12-2024 Cholesterol [Mass/Vol] 194 mg/dL <201 [facility] Comment on above: Cholesterol level, D esirable <200 mg/dLBorderline high cholesterol 200-239 mg/dLHigh cholesterol >=240 mg/dLRecommendations of the NCEP Adult Treatment Panel for the following risk-cutoff thresholds for the [place] population. Triglycerides measurementOrd ered By: Maverick Abdalla on 10-12-2024 Triglyceride [Mass/Vol] 37 mg/dL <199 [facility] Comment on above: The drugs N-Acetylcy steine and Metamizole may falsely depress this assay. Normal range: <150 mg/dLBorderline High: 150-199 mg/dLHigh: 200-499 mg/dLVery High: >500 mg/dL Troponin T HS 2 HRon 025 Trop T High Sen < 6 Normal <=14 [facility] Comment on above: Performed By: #### L 501.9520 #### [facility] [address] [place], [place], [address] Troponin T HS 4 HRon 025 Trop T High Sen 7 ng/L Normal <=14 [facility] Comment on above: Performed By: #### L 499.0043 ####[facility] [address] [place], [place], [address] Troponin T.cardiac [Mass/vol ume] in Serum or Plasma by High sensitivity methodOrdered By: Maverick Abdalla on 10-12-2024 Troponin T.cardiac High sensitivity method [Mass/Vol] 7 ng/L <14 [facility] Troponin T.cardiac High sensitivity method [Mass/Vol] < 6 ng/L <14 [facility] Troponin T.cardiac High sensitivity method [Mass/Vol] 6 ng/L Invalid Interpretation Code <14 [facility] Comment on above: Delta: 10 on 5-1730 Urine Drug Screen (VISTA)on 10-12-2024 BUP Ur Drug Scr Negative Normal < 200 ng/mL [facility] Comment on above: Performed By: #### L 501.9520 #### [facility] [address] [place], [address] Urine benzodiazepine levelOr dered By: Maverick Abdalla on 10-12-2024 Benzodiazepines Ql (U) Negative < 200 ng/mL W [facility] Urine cocaine levelOrdered B y: Maverick Abdalla on 10-12-2024 Cocaine Ql (U) Negative < 300 ng/mL [facility] Urine jjnnf-2-qlufqryuohwxxa abinol (THC) measurementOrdered By: Maverick Abdalla on 10-12-2024 Cannabinoids Screen Ql (U) Negative < 50 ng/mL [facility] Urine phencyclidine (PCP) de tectionOrdered By: Maverick Abdalla on 10-12-2024 Phencyclidine Ql (U) Negative < 25 ng/mL [facility] Vitamin B12on 10-12-2024 Cobalamin (Vitamin B12) [Mass/Vol] 446 pg/mL Normal 180-914 [facility] Comment on above: Performed By: #### L 503.0106 ####[facility] [address] [place], [address] Vitamin B12 ser/plasOrdered By: Maverick Abdalla on 10-12-2024 Cobalamin (Vitamin B12) [Mass/Vol] 446 pg/mL 180-914 [facility] 12 Lead EKGon 10-11-2024 12 Lead [facility]KG [facility] [facility] Cardiovascular Services [address] [place] [address] 12 Lead EKG 10/11/24 1739 MR#: [id number] Acct: [id number] Name: SILKE LOPEZ Rep #: [id number] : 1965 58 From: Maikol Sanchez MD Attending Dr: Dr. Merlin Rivers MD Status: DIS PARKER Ordering Dr: Ashwin Bauman MD Date: 10/11/24 Location: [facility] Sex: F C Admitted: 10/11/24 Test Reason : STROKE Blood Pressure : */* mmHG Vent. Rate : 62 BPM Atrial Rate : 62 BPM P-R Int : 162 ms QRS Dur : 94 ms QT Int : 430 ms P-R-T Axes : 35 0 43 degrees QTcB Int : 436 ms Normal sinus rhythm Normal ECG Confirmed by MAIKOL SANCHEZ MD ([id number]), supervising film or videotape editor LIN DAS ([id number]) on 10/14/2024 9:17:39 AM Referred By: Confirmed By: MAIKOL SANCHEZ MD 10/14/24 0917 Date Maikol Sanchez MD CC: EDGAR Wynn; Dr. Ashwin Bauman MD; Dr. Merlin Rivers MD Signed Normal [facility] Absolute lymphocyte countOrd ered By: Ashwin Bauman on 10-11-2024 Lymphocytes Auto (Unsp spec) [#/Vol] 1.59 10*3/uL 0.83-4.51 [facility] Absolute neutrophil countOrd ered By: Ashwin Bauman on 10-11-2024 Neutrophils (Bld) [#/Vol] 3.6 10*3/uL 2.0-7.7 [facility] Activated partial thrombopla stin time (aPTT) in platelet poor plasma by coagulation aOrdered By: Ashwin Bauman on 10-11-2024 aPTT Coag (PPP) [Time] 34.4 s 24.1-36.2 [facility] Alcohol, Blood (Medical)-Ser umon 10-11-2024 SERUM ETOH < 10.1 Normal <=10.0 [facility] Comment on above: Result Comment: This test is for medical purposes only. The legal definition of intoxication varies according to local law. Performed By: #### L 501.9520 #### [facility] Laboratory [address] [place], [address] Anion gap in Serum or Plasma Ordered By: Ashwin Baumna on 10-11-2024 Anion gap [Moles/Vol] 11 mmol/L 07-11 [facility] Automated lymphocyte count a s percentage of total leukocytesOrdered By: Ashwin Bauman on 10-11-2024 Lymphocytes/100 WBC Auto (Unsp spec) 27.4 % [facility] BUN/creatinine ratioOrdered By: Ashwin Bauman on 10-11-2024 Urea nitrogen/Creatinine [Mass ratio] 30.0 mg/mg High 12-16 [facility] Basic Metabolic Profile (BMP )on 10-11-2024 BUN/CRE 30.0 RATIO High [facility] Comment on above: Performed By: #### L 300.4310, L300.3900, L501.4021, L100.0100, L500.2500 ####[facility] [address] [place], [address] Calcium [Mass/Vol] 9.2 mg/dL Normal 7.6-11.0 [facility] Comment on above: Performed By: #### L 300.4310, L300.3900, L501.4021, L100.0100, L500.2500 ####[facility] [address] [place], [address] Chloride [Moles/Vol] 106 mmol/L Normal 98-[address] [facility] Comment on above: Performed By: #### L 300.4310, L300.3900, L501.4021, L100.0100, L500.2500 ####[facility] [address] [place], [address] CO2 [Moles/Vol] 24.3 mmol/L Normal 21.0-32.0 [facility] Comment on above: Performed By: #### L 300.4310, L300.3900, L501.4021, L100.0100, L500.2500 ####[facility] [address] [place], [address] Creatinine [Mass/Vol] 0.92 mg/dL Normal 0.70-1.20 [facility] Comment on above: Performed By: #### L 300.4310, L300.3900, L501.4021, L100.0100, L500.2500 ####[facility] [address] [place], [address] ECRCL 74.73 ml/min Normal 50-250 [facility] Comment on above: Performed By: #### L 300.4310, L300.3900, L501.4021, L100.0100, L500.2500 ####[facility] [address] [place], [place], [phone] GAP 11 Normal 5-15 [facility] Comment on above: Performed By: #### L 300.4310, L300.3900, L501.4021, L100.0100, L500.2500 ####[facility] [address] [place], [address] GFR/1.73 sq M.predicted among non-blacks MDRD (S/P/Bld) [Vol rate/Area] 72 mL/min/{1.73_m2} Normal >60 [facility] Comment on above: Result Comment: mL/m in/1.73m2 CKD-EPI Creatinine Equation (2020) Performed By: #### L 300.4310, L300.3900, L501.4021, L100.0100, L500.2500 ####[facility] [address] [place], [address] Glucose [Mass/Vol] 109 mg/dL High 70-99 [facility] Comment on above: Performed By: #### L 300.4310, L300.3900, L501.4021, L100.0100, L500.2500 ####[facility] [address] [place], [address] Potassium [Moles/Vol] 4.0 mmol/L Normal 3.3-5.1 [facility] Comment on above: Performed By: #### L 300.4310, L300.3900, L501.4021, L100.0100, L500.2500 ####[facility] [address] [place], [address] Sodium [Moles/Vol] 141 mmol/L Normal 133-145 [facility] Comment on above: Performed By: #### L 300.4310, L300.3900, L501.4021, L100.0100, L500.2500 ####[facility] [address] [place], [address] Urea nitrogen [Mass/Vol] 28 mg/dL High 4-19 [facility] Comment on above: Performed By: #### L 300.4310, L300.3900, L501.4021, L100.0100, L500.2500 ####[facility] [address] [place], [address] Basophil percentageOrdered B y: Ashwin Bauman on 10-11-2024 Basophils/100 WBC (Bld) 0.7 % 0-1 [facility] Bedside Glucoseon 10-11-2024 FINGERSTICK GLU 139 mg/dL High 74-106 [facility] Comment on above: Result Comment: [facility] OF PATIENT CARE PER NURSING PROTOCOL Performed By: #### L 501.5200 #### [facility] [address] [place], [address] CBC W/Diff, Automatedon 09-27 Absolute Lymph 1.59 X10 3/uL Normal 0.83-4.51 [facility] Comment on above: Performed By: #### L 300.4310, L300.3900, L501.4021, L100.0100, L500.2500 ####[facility] [address] [place], [address] Absolute Neut 3.6 X10 3/uL Normal 2.0-7.7 [facility] Comment on above: Performed By: #### L 300.4310, L300.3900, L501.4021, L100.0100, L500.2500 ####[facility] [address] [place], [address] Basophils/100 WBC (Bld) 0.7 % Normal 0-1 [facility] Comment on above: Performed By: #### L 300.4310, L300.3900, L501.4021, L100.0100, L500.2500 ####[facility] [address] [place], [address] Eosinophils/100 WBC (Bld) 2.4 % Normal 0-5 [facility] Comment on above: Performed By: #### L 300.4310, L300.3900, L501.4021, L100.0100, L500.2500 ####[facility] [address] [place], [address] Erythrocyte distribution width (RBC) [Ratio] 13.3 % Normal 11.6-14.6 [facility] Comment on above: Performed By: #### L 300.4310, L300.3900, L501.4021, L100.0100, L500.2500 ####[facility] [address] [place], [address] Hematocrit (Bld) [Volume fraction] 40.3 % Normal 37-47 [facility] Comment on above: Performed By: #### L 300.4310, L300.3900, L501.4021, L100.0100, L500.2500 ####[facility] [address] [place], [address] Hemoglobin (Bld) [Mass/Vol] 13.3 g/dL Normal 12.0-15.0 [facility] Comment on above: Performed By: #### L 300.4310, L300.3900, L501.4021, L100.0100, L500.2500 ####[facility] [address] [place], [address] IG% 0.300 Normal 0.0-0.9 [facility] Comment on above: Result Comment: IG% - Immature Granulocytes (promyelocytes, myelocytes and metamyelocytes) > 1% indicates that a LEFT SHIFT is Present. Performed By: #### L 300.4310, L300.3900, L501.4021, L100.0100, L500.2500 ####[facility] [address] [place], [address] Lymphocytes/100 WBC (Bld) 27.4 % Normal 19-41 [facility] Comment on above: Performed By: #### L 300.4310, L300.3900, L501.4021, L100.0100, L500.2500 ####[facility] [address] [place], [address] MCH (RBC) [Entitic mass] 31.6 pg Normal 27.0-32.0 [facility] Comment on above: Performed By: #### L 300.4310, L300.3900, L501.4021, L100.0100, L500.2500 ####[facility] [address] [place], [address] MCHC (RBC) [Mass/Vol] 33.0 g/dL Normal 32-36 [facility] Comment on above: Performed By: #### L 300.4310, L300.3900, L501.4021, L100.0100, L500.2500 ####[facility] [address] [place], [address] MCV (RBC) [Entitic vol] 95.7 fL Normal 81-99 [facility] Comment on above: Performed By: #### L 300.4310, L300.3900, L501.4021, L100.0100, L500.2500 ####[facility] [address] [place], [address] Monocytes/100 WBC (Bld) 7.1 % Normal 0-10 [facility] Comment on above: Performed By: #### L 300.4310, L300.3900, L501.4021, L100.0100, L500.2500 ####[facility] [address] [place], [address] Neutrophils/100 WBC (Bld) 62.1 % Normal 47-70 [facility] Comment on above: Performed By: #### L 300.4310, L300.3900, L501.4021, L100.0100, L500.2500 ####[facility] [address] [place], [address] Nucleated RBC (Bld) [#/Vol] 0 10*3/uL Normal 0-5 [facility] Comment on above: Performed By: #### L 300.4310, L300.3900, L501.4021, L100.0100, L500.2500 ####[facility] [address] [place], [address] Platelet mean volume (Bld) [Entitic vol] 10.9 fL Normal 6.2-12.0 [facility] Comment on above: Performed By: #### L 300.4310, L300.3900, L501.4021, L100.0100, L500.2500 ####[facility] [address] [place], [address] Platelets (Bld) [#/Vol] 288 10*3/uL Normal 150-450 [facility] Comment on above: Performed By: #### L 300.4310, L300.3900, L501.4021, L100.0100, L500.2500 ####[facility] [address] [place], [address] RBC (Bld) [#/Vol] 4.21 10*6/uL Normal 4.2-5.4 [facility] Comment on above: Performed By: #### L 300.4310, L300.3900, L501.4021, L100.0100, L500.2500 ####[facility] [address] [place], [address] RDW SD 46.7 fl High 35.1-43.9 [facility] Comment on above: Performed By: #### L 300.4310, L300.3900, L501.4021, L100.0100, L500.2500 ####[facility] [address] [place], [address] WBC (Bld) [#/Vol] 5.8 10*3/uL Normal 4.4-11.0 [facility] Comment on above: Performed By: #### L 300.4310, L300.3900, L501.4021, L100.0100, L500.2500 ####[facility] [address] [place], [address] Carbon dioxide, total [Moles /volume] in Central venous bloodOrdered By: Ashwin Bauman on 10-11-2024 CO2 [Moles/Vol] 24.3 mmol/L 21.0-32.0 [facility] Chloride assayOrdered By: Reyes Bauman on 10-11-2024 Chloride [Moles/Vol] 106 mmol/L 98-[address] [facility] Echo, Limited Studyon 2024 Echo, Limited Study [facility] [address] [place] [address] Echo, Limited Study 10/12/24 0815 MR#: [id number] Acct: [id number] Name: SILKE LOPEZ Rep #: [id number] : 1965 58 From: Don Owen MD Attending Dr: Dr. Merlin Rivers MD Status: ADM PARKER Ordering Dr: Maverick Mitchell DO Date: 10/11/24 Location: [facility] Sex: F C Admitted: 10/11/24 Reason For Study Reason For Study: TIA/CVA Procedure This was a limited 2D transthoracic echocardiogram. Exam performed portable in patient room. Left Ventricle Normal left ventricle. Left ventricular systolic function is normal. Normal diastololic function. The LV ejection fraction is 60 %. No regional wall motion abnormalities noted. Right Ventricle Normal right ventricle. Atria The left and right atria are normal. Bubble contrast study is negative for PFO/ASD. Mitral Valve No eccentric mitral valve insufficiency. Tricuspid Valve Normal tricuspid valve. Right ventricular systolic pressure estimated to be 25 mmHg. Mild (1+) tricuspid valve insufficiency. Aortic Valve There is no aortic stenosis. Pulmonic Valve Normal pulmonic valve. Great Vessels Normal sized aortic root. Inferior vena cava collapse with respiration. Pericardium/Pleural No pericardial effusion. Medication Performed a rapid injection of agitated mix of 9 cc saline and 1cc air to assess for atrial septal defect. MMode/2D Measurements Calculations LVIDd: 5.0 cm IVSd: 0.83 cm LAV(MOD-bp): 55.0 ml LVIDs: 2.6 cm LVPWd: 0.80 cm RVDd: 3.6 cm FS: 47.9 % LAV(MOD-bp) Indexed: 27.2 ml/m2 LAV(MOD-sp2): 57.1 ml LAV(MOD-sp4): 52.4 ml SV(MOD-sp4): 56.5 ml LVAd ap4: 27.8 cm2 LVAd ap2: 25.9 cm2 LVLd ap4: 7.5 cm LVLd ap2: 7.6 cm SI(MOD-sp4): 27.9 ml/m2 EDV(MOD-sp4): 85.6 ml EDV(MOD-sp2): 74.3 ml EDV(sp4-el): 87.3 ml EDV(sp2-el): 74.7 ml LVAs ap4: 14.8 cm2 LVAs ap2: 14.3 cm2 LVLs ap4: 6.4 cm LVLs ap2: 6.4 cm ESV(MOD-sp4): 29.1 ml ESV(MOD-sp2): 27.5 ml ESV(sp4-el): 29.1 ml ESV(sp2-el): 27.0 ml EF(MOD-sp4): 66.0 % EF(MOD-sp2): 62.9 % EF(sp4-el): 66.7 % SV(MOD-sp2): 46.8 ml SV(sp4-el): 58.3 ml Ao sinus diam: 3.2 cm SI(MOD-sp2): 23.1 ml/m2 Ao ST Junction: 2.6 cm LA dimension(2D): 3.6 cm LA A4 area: 19.0 cm2 RA A4 area: 15.0 cm2 TAPSE: 2.3 cm Time Measurements MV dec time: 0.18 sec Doppler Measurements Calculations MV E max yaquelin: 85.7 cm/sec Lat Peak E' Yaquelin: 14.4 cm/sec Med Peak E' Yaquelin: 9.8 cm/sec MV A max yaquelin: 69.6 cm/sec E/E' lat: 5.9 E/E' med: 8.8 MV E/A: 1.2 TR max yaquelin: 188.9 cm/sec MV dec slope: 478.1 cm/sec2 TR max P.3 mmHg ECHO/Echo, Limited Study Interpretation Summary Left ventricular systolic function is normal. Bubble contrast study is negative for PFO Ordering Physician: Maverick Mitchell Performed By: Mary Ann Mallory RDCS 10/12/24 1207 Date Don Owen MD CC: EDGAR Wynn; Dr. Maverick Mitchell DO; Dr. Merlin Rivers MD Date Dictated: 10/12/2415 Date Transcribed: 10/12/24 1207 Window Display Designer: Signed Normal [facility] Emergency Department Summary on 10-11-2024 Emergency Department Summary [facility] Medical Records Department [address] [place] [address] Emergency Department Summary 10/11/24 MR#: [id number] Acct: [id number] Name: SILKE LOPEZ Rep #: [id number] : 1965 58 From: Ashwin Bauman MD PCP: Leigha Wynn, PEST CONTROL 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-C Status:REG ER Location: ED HPI History of Present Illness Chief Complaint: Headache Informant: patient and spouse/S.O. Onset/Context/Timing Onset: Today Context: Sudden Onset (Last known well around 1:30 PM.) Timing: Intermittent Quality and Location: Positive for Slurred Speech, Expressive Aphasia and - (Visual changes) Current Severity: Mild Maximum Severity: Moderate Narrative Narrative: 58-year-old female history of prediabetes. States she was at the library around 130 she started getting visual changes where she said she thought she saw like either spots or lights. When she got home her said her speech was off she was having trouble putting her words together it was hard to understand her. She is not complaining of a headache. Speech is returned and the visual changes have resolved. She has never had a stroke before. She is on no blood thinners. She denies any recent head trauma. She does have an iodine dye allergy Prior similar symptoms: No Recent Illness/Hospitalizati on: No PFSH [facility] Medical History Wears glasses Arthritis Scoliosis Non-smoker History of edema Thyroid eye disease Primary hyperparathyroidism Hyperparathyroidism Screening for osteoporosis Home Medications ???Medication ???Instructions ???Recorded ???Last Taken ???Type glucosamine HCl 500 mg tablet 500 mg PO QDAY 09/20/24 Unknown Hi story ergocalciferol (vitamin D2) 1,250 1,250 mcg PO QWEEK 10/11/24 Unkno wn History mcg (50,000 unit) capsule Allergy/AdvReac Type Severity Reaction Status Date / Time aspirin (ASA) Allergy Intermediate Swelling Verified 09/20/24 15:52 Iodinated Contrast Media Allergy Mild Hives Verified 09/20/24 15:52 (contrast dye - iodinated) levofloxacin (From Levaquin) Allergy Other Verified 09/20/24 15:52 naproxen Allergy Other Verified 09/20/24 15:52 Penicillins Allergy Other Verified 09/20/24 15:52 Family History Father Cancer Prostate Sister Cancer cholangiocarcinoma- Bile duct Grandfather Cancer Prostate Surgical History S/P parathyroidectomy S/P D C (status post dilation and curettage) S/P appendectomy Social History household members: spouse current occupational status: employed current occupation: [employer] Smoking Status: Never smoker alcohol intake: never substance use type: does not use seatbelt use: always do you feel safe at home: Yes additional social history: - [employer]- Retired ROS ROS ED ROS Narrative Denies recent illness. Headache. Constitutional Constitutional ED: Denies chills or fever(s) Eyes Eyes: Denies blurry vision ENT ENT ED: Denies ear pain Cardiovascular Cardiovascular: Denies chest pain Respiratory/Chest Respiratory/Chest: Denies cough or dyspnea Gastrointestinal Gastrointestinal: Denies abdominal pain, constipation, diarrhea, melena, nausea or vomiting Genitourinary Genitourinary ED: Denies dysuria or hematuria Musculoskeletal Musculoskeletal: Denies arthralgias or back pain Integumentary Denies abscess Neurologic Neurologic: Reports headache(s); Denies paresthesias or weakness Psychiatric Psychiatric: Denies anxiety Endocrine Endocrinology: Denies polydipsia or polyphagia Hematologic/Lymphatic Hematologic/Lymphatic : Denies easy bleeding, easy bruising or lymphadenopathy Allergic/Immunologic Allergic/Immunologic ED: Denies mouth swelling, urticaria or other EXAM Physical Exam Narrative Exam Narrative: 58-year-old female in triage room 1 I was called out to see. Vital signs are stable afebrile. sitting in triage room with her. HEENT exam pupils round react light. Extra motions are intact. No facial droop. Normal speech. No trauma. Neck nontender no lymphadenopathy. Lungs clear to auscultation. Heart regular rhythm rate about 70 no murmur. Chest wall ribs nontender. Abdomen soft nontender. Moving all 4 extremities. 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 Normal dorsi plantarflexion. Back nontender. Neurologically she is awake alert. Answering questions following commands. Her NIH score is at worst a 1. Currently she has no facial droop. She has normal motor strength. Normal sensation. Her speech may not be totally back to normal. But is easily understood and currently there is no dysarthria. Const Vital Signs: 10/11/24 17 (more content not included)... Normal [facility] Eosinophil percentageOrdered By: Ashwin Bauman on 10-11-2024 Eosinophils/100 WBC (Bld) 2.4 % 0-5 [facility] Erythrocyte distribution wid th ratioOrdered By: Ashwin Bauman on 10-11-2024 Erythrocyte distribution width (RBC) [Ratio] 13.3 % 11.6-14.6 [facility] Erythrocyte distribution wid th standard deviationOrdered By: Ashwin Bauman on 10-11-2024 Erythrocyte distribution width (RBC) [Ratio] 46.7 fl High 35.1-43.9 [facility] Folate [Mass/volume] in Seru m or PlasmaOrdered By: Maverick Abdalla on 10-11-2024 Folate [Mass/Vol] 10.50 ng/mL 4.60-34.80 [facility] Comment on above: Hemolysis, Results w ill be affected, Requires Recollection. Glomerular filtration rate ( GFR) estimation/1.73 sq m using serum, plasma, or whole bOrdered By: Ashwin Bauman on 10-11-2024 GFR/1.73 sq M.predicted among non-blacks MDRD (S/P/Bld) [Vol rate/Area] 72 mL/min/{1.73_m2} >60 [facility] Comment on above: mL/min/1.73m2 CKD-EP I Creatinine Equation (2020) [facility] deOrdered By: Ashwin Bauman on 10-11-2024 Glucose [Mass/Vol] 139 mg/dL High 74-106 [facility] Comment on above: MANAGEMENT OF PATIEN T CARE PER NURSING PROTOCOL H AND P Exam - Hospitaliston 10-11-2024 H&P Exam - Hospitalist [facility] Medical Records Department [address] [place] [address] H P Exam - Hospitalist 10/11/242013 MR#: [id number] Acct: [id number] Name: SILKE LOPEZ Rep #: [id number] : 1965 58 From: Maverick Mitchell DO PCP: Leigha Wynn, PEST CONTROL 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-C Status:ADM PARKER Location: [place] [address] HPI - General General Date of Admission: 10/11/24 Date of Service: 10/11/24 Chief Complaint: Slurred Speech and Visual Changes. HPI Narrative SILKE LOPEZ, is a 58 F with a past medical history of obesity (class II); with BMI of 39.5 this admission, chronic lower extremity dermatitis with ulceration, psoriasis, PVD, history of DM-2; currently not on treatment, history of hyperparathyroidism; s/p parathyroidectomy, thyroid eye disease, history of iodine allergy and OA; on glucosamine who presents to [facility] ER complaining of slurred speech and visual changes. Mrs. Lopez reports her symptoms began approximately 1:30 PM earlier today while she was at the library when she began to have visual disturbance with what she describes as a "lolly-like" shape that seemed to come from the Right of her visual field followed by a 7/10 headache that began on the Right-side of her head. She then drove herself home and when she saw her when he noticed abnormal speech which made it difficult to understand her so he decided to bring her in for further evaluation and treatment for presumed CVA. She states her visual disturbance and slurred speech have resolved and her headache has moved to the Left-side of her head and is currently 2/10. She denies history of TIA/CVA, head trauma, similar previous episodes, recent illness or recent medication changes. She also denies related fever, chills, runny nose, sore throat, ear pain, SOB, cough, chest pain, palpitations, heart racing, dysuria, hematuria or rash but she does admit to recent headache. In the ER she underwent a head CT without contrast that revealed no ICH, mass effect or midline shift followed by CTA of the head and neck with IV contrast that showed common origin of Left common carotid artery and Right innominate artery with no evidence of aneurysm or dissection complicated by laboratory evidence of Dehydration; with BUN/creatinine ratio of 30 with clinical evidence of TIA vs CVA; with transient visual disturbance with slurred speech and she was then admitted to the PCU under observation status for ongoing care for a stay that is expected to expected to be less than 2 midnights. [facility] Medical History Wears glasses Arthritis Scoliosis Non-smoker History of edema Thyroid eye disease Primary hyperparathyroidism Hyperparathyroidism Screening for osteoporosis Home Medications ???Medication ???Instructions ???Recorded ???Last Taken ???Type glucosamine HCl 500 mg tablet 500 mg PO QDAY 09/20/24 10/11/24 1 3:30 History 500 mg ascorbic acid (vitamin C) 500 mg 500 mg PO DAILY 10/11/24 10/11/24 13:30 History chewable tablet (Acerola C) ergocalciferol (vitamin D2) 1,250 1,250 mcg PO QWEEK 10/11/2410/05 History mcg (50,000 unit) capsule Allergy/AdvReac Type Severity Reaction Status Date / Time aspirin (ASA) Allergy Intermediate Swelling Verified 09/20/24 15:52 Iodinated Contrast Media Allergy Mild Hives Verified 09/20/24 15:52 (contrast dye - iodinated) levofloxacin (From Levaquin) Allergy Other Verified 09/20/24 15:52 naproxen Allergy Other Verified 09/20/24 15:52 Penicillins Allergy Other Verified 09/20/24 15:52 Family History Father Cancer Prostate Sister Cancer cholangiocarcinoma- Bile duct Grandfather Cancer Prostate Surgical History S/P parathyroidectomy S/P D C (status post dilation and curettage) S/P appendectomy Social History household members: spouse current occupational status: employed current occupation: [employer] Smoking Status: Never smoker alcohol intake: never substance use type: does not use seatbelt use: always do you feel safe at home: Yes additional social history: - [employer]- Retired [employer] Narrative Review of Systems: Constitutional: Patient denies fever or chills. Eyes: Patient admits to visual disturbance with spots or lights. ENT: Patient denies runny nose, sore throat or ear pain. Resp: Patient denies SOB or cough. CV: Patient denies chest pain, palpitations or heart racing. GI: Patient denies abdominal pain, nausea, vomiting, diarrhea or constipation. : Patient denies dysuria or hematuria. MSK: Patient denies arthralgias or myalgias. Skin: Patient has no evidence of (more content not included)... Normal [facility] Hematocrit Auto (Bld) [Volum e fraction]Ordered By: Ashwin Bauman on 10-11-2024 Hematocrit (Bld) [Volume fraction] 40.3 % 37-47 [facility] Hemoglobin A1con 10-11-2024 HbA1c (Bld) [Mass fraction] 5.5 % Normal <=5.6 [facility] Comment on above: Result Comment: Norm al < 5.7 % Prediabetic 5.7 - 6.4 % Diabetic >or= 6.5 % Please note range changes. Performed By: #### L 501.9520 #### [facility] [address] [place] [address]. [place], [address] Hemoglobin A1c percentageOrd ered By: Maverick Abdalla on 10-11-2024 HbA1c (Bld) [Mass fraction] 5.5 % <5.7 [facility] Comment on above: Normal < 5.7 % Predi abetic 5.7 - 6.4 % Diabetic >or= 6.5 % Please note range changes. Hemoglobin measurementOrdere d By: Ashwin Bauman on 10-11-2024 Hemoglobin (Bld) [Mass/Vol] 13.3 g/dL 12.0-15.0 [facility] Immature granulocytes/100 WB C Auto (Bld)Ordered By: Ashwin Bauman on 10-11-2024 Immature granulocytes/100 WBC (Bld) 0.300 % 0.0-0.9 [facility] Comment on above: IG% - Immature Granu locytes (promyelocytes, myelocytes and metamyelocytes) > 1% indicates that a LEFT SHIFT is Present. International normalized rat io (INR) calculationOrdered By: Ashwin Bauman on 10-11-2024 INR Coag (Bld) [Relative time] 1.0 {INR} [facility] L501.4021on 10-11-2024 Trop T High Sen 10 ng/L Normal <=14 [facility] Comment on above: Performed By: #### L 300.4310, L300.3900, L501.4021, L100.0100, L500.2500 ####[facility] [address] [place], [address] MCV (mean corpuscular volume ) determinationOrdered By: Ashwin Bauman on 10-11-2024 MCV (RBC) [Entitic vol] 95.7 fL 81-99 [facility] Mean corpuscular hemoglobin (MCH) determinationOrdered By: Ashwin Bauman on 10-11-2024 MCH (RBC) [Entitic mass] 31.6 pg 27.0-32.0 [facility] Mean corpuscular hemoglobin concentration (MCHC) determinationOrdered By: Ashwin Bauman on 10-11-2024 MCHC (RBC) [Mass/Vol] 33.0 g/dL 32-36 [facility] Mean platelet volume determi nationOrdered By: Ashwin Bauman on 10-11-2024 Platelet mean volume (Bld) [Entitic vol] 10.9 fL 6.2-12.0 [facility] Monocyte percentageOrdered B y: Ashwin Bauman on 10-11-2024 Monocytes/100 WBC (Bld) 7.1 % 0-10 [facility] Neutrophil percentageOrdered By: Ashwin Bauman on 10-11-2024 Neutrophils/100 WBC (Bld) 62.1 % 47-70 [facility] Nucleated red blood cell per centageOrdered By: Ashwin Bauman on 10-11-2024 Nucleated RBC/100 WBC (Bld) [Ratio] 0 % 0-5 [facility] Partial Thromboplast Timeon 10-11-2024 aPTT Coag (Bld) [Time] 34.4 s Normal 24.1-36.2 [facility] Comment on above: Performed By: #### L 300.4310, L300.3900, L501.4021, L100.0100, L500.2500 ####[facility] [address] [place], [address] Platelet countOrdered By: eRyes Bauman on 10-11-2024 Platelets (Bld) [#/Vol] 288 10*3/uL 150-450 [facility] Potassium measurement (mass/ volume)Ordered By: Ashwin Bauman on 10-11-2024 Potassium (Unsp spec) [Mass/Vol] 4.0 mmol/L 3.3-5.1 [facility] Prothrombin Time w/INRon INR Coag (PPP) [Relative time] 1.0 {INR} Normal [facility] Comment on above: Performed By: #### L 300.4310, L300.3900, L501.4021, L100.0100, L500.2500 ####[facility] [address] [place], [address] PT Coag (PPP) [Time] 13.8 s Normal 11.7-14.[address] [facility] Comment on above: Performed By: #### L 300.4310, L300.3900, L501.4021, L100.0100, L500.2500 ####[facility] [address] [place], [address] Prothrombin timeOrdered By: Ashwin Bauman on 10-11-2024 PT Coag (PPP) [Time] 13.8 s 11.7-14.[address] [facility] RBC Auto (Bld) [#/Vol]Ordere d By: Ashwin Bauman on 10-11-2024 RBC (Bld) [#/Vol] 4.21 10*6/uL 4.2-5.4 [facility] STROKE Brain/Head without Co nton 10-11-2024 STROKE Brain/Head without Cont [facility] Imaging Services [address] [place] [address] STROKE Brain/Head without Cont MR#: [id number] Acct: [id number] Name: MARIA EUGENIASILKE BENAVIDEZ Rep #: [id number] : 1965 F 58 From: Luigi Benito MD PCP: EDGAR Long Status: REG ER Study: STROKE Brain/Head without Cont Date of Exam: 0 10/11/24 Exam# [id number] Ordering Dr: Ashwin Bauman MD PROCEDURE: STROKE BRAIN/HEAD WITHOUT CONT 10/11/2024 REASON FOR EXAM: NEURO DEFICIT, ACUTE, STROKE SUSPECTED TECHNIQUE: STROKE BRAIN/HEAD WITHOUT CONT Coronal and Sagittal reconstruction series were provided. One or more dose reduction techniques were used (e.g., Automated exposure control, adjustment of the mA and/or kV according to patient size, use of iterative reconstruction technique. RADIATION DOSE SUMMARY: CTDlvol: 45 mGy DLP: 813 mGycm COMPARISON: None available. FINDINGS: There is no extra-axial or intra-axial intracranial hemorrhage. No mass effect or midline shift is seen. The ventricles, sulci, and cisterns are normal in size and shape for the patient's age. There is normal wolf-white matter differentiation. The posterior fossa is grossly unremarkable. The skull is unremarkable. Visualized paranasal sinuses are clear. The mastoid air cells show normal translucency. CT/STROKE Brain/Head without Cont IMPRESSION: No intracranial hemorrhage. No mass effect or midline shift. Reading Location: [facility] CC: EDGAR Wynn; Dr. Ashwin Bauman MD Window Display Designer: Signed Normal [facility] STROKE CTA Head AND Neck W/C onon 10-11-2024 STROKE CTA Head AND Neck W/Con [facility] Imaging Services [address] [place] [address] STROKE CTA Head AND Neck W/Con MR#: [id number] Acct: [id number] Name: SILKE LOPEZ Rep #: [id number] : 1965 F 58 From: Jose G Bonner MD PCP: EDGAR Long Status: REG ER Study: STROKE CTA Head AND Neck W/Con Date of Exam: 0 10/11/24 Exam# [id number] Ordering Dr: Ashwin Bauman MD PROCEDURE: STROKE CTA HEAD AND NECK W/CON 10/11/2024 REASON FOR EXAM: STROKELIKE SYMPTOMS SLURRED SPEECH. TECHNIQUE: STROKE CTA HEAD AND NECK W/CON Multiplanar Sagittal and Coronal images were obtained. 3D and MIP post processing was performed. CONTRAST: Isovue 370 VOLUME: 80 mL One or more dose reduction techniques were used (e.g., Automated exposure control, adjustment of the mA and/or kV according to patient size, use of iterative reconstruction technique). RADIATION DOSE SUMMARY: DLP: 1506.98 mGycm COMPARISON: None. FINDINGS: CTA HEAD: Widely patent intracranial arterial vasculature. No large vessel occlusion, flow-limiting stenosis, saccular aneurysm, or vascular malformation identified. Relatively hypoplastic right DONNA A1 segment compared to the left, anatomic variant. Patent anterior communicating artery. CTA NECK: Common origin of left common carotid and right innominate artery. Cervical carotid and codominant vertebral arteries are widely patent, normal in course and caliber. No aneurysm or dissection. CT/STROKE CTA Head AND Neck W/Con IMPRESSION: Normal CTA of the head and neck. Reading Location: [facility] CC: EDGAR Wynn; Dr. Ashwin Bauman MD Window Display Designer: Signed Normal [facility] Serum creatinine measurement (mass/volume)Ordered By: Ashwin Bauman on 10-11-2024 Creatinine [Mass/Vol] 0.92 mg/dL 0.70-1.20 [facility] Serum glucose measurement (m ass/volume)Ordered By: Ashwin Bauman on 10-11-2024 Glucose [Mass/Vol] 109 mg/dL High 70-99 [facility] Serum or plasma calcium leta urement (mass/volume)Ordered By: Ashwin Bauman on 10-11-2024 Calcium [Mass/Vol] 9.2 mg/dL 7.6-11.0 [facility] Serum or plasma ethanol leta urement (mass/volume)Ordered By: Maverick Abdalla on 10-11-2024 Ethanol [Mass/Vol] mg/dL <10.1 [facility] Comment on above: This test is for med ical purposes only. The legal definition of intoxication varies according to local law. Serum or plasma urea nitroge n measurement (mass/volume)Ordered By: Ashwin Bauman on 10-11-2024 Urea nitrogen [Mass/Vol] 28 mg/dL High 4-19 [facility] Sodium levelOrdered By: Ashwin Bauman on 10-11-2024 Sodium [Moles/Vol] 141 mmol/L 133-145 [facility] TSH DL <= 0.005 mIU/L QnOrde red By: Maverick Abdalla on 10-11-2024 TSH Qn 1.410 uIU/mL 0.300-4.200 [facility] Thyroid Stim Hormone (TSH)on 10-11-2024 TSH 1.410 uIU/mL Normal 0.300-4.200 [facility] Comment on above: Performed By: #### L 501.9520 #### [facility] [address] [place], [address] Troponin T HS 2 HRon 025 Trop T High Sen 7 ng/L Normal <=14 [facility] Comment on above: Performed By: #### L 501.5200 #### [facility] [address] [place], [address] Troponin T HS 4 HRon 025 Trop T High Sen 7 ng/L Normal <=14 [facility] Comment on above: Performed By: #### L 501.9520 #### [facility] [address] [place], [address] Troponin T.cardiac [Mass/vol ume] in Serum or Plasma by High sensitivity methodOrdered By: Ashwin Bauman on 10-11-2024 Troponin T.cardiac High sensitivity method [Mass/Vol] 7 ng/L <14 [facility] Troponin T.cardiac High sensitivity method [Mass/Vol] 10 ng/L <14 [facility] White blood cell (WBC) count Ordered By: Ashwin Bauman on 10-11-2024 WBC (Bld) [#/Vol] 5.8 10*3/uL 4.4-11.0 [facility] Radiologic Technology Program Director Office Visit Reporton 09-20-2024 Radiologic Technology Program Director Office Visit Report [facility] [address] [place] [address], [address] [place] [address] OFFICE VISIT Date of Service: 09/20/24 MR#: [id number] Acct: [id number] Name: SILKE LOPEZ Rep #: [id number] : 1965 Provider: Dr. So Harrington DO Age/Sex: 58/F Location: [facility] Status: Signed Intake Vital Signs 06/04/24 06:38 09/20/24 15:52 09/20/24 15:54 Height 5 ft 3 in 5 ft 3 in 5 ft 3 in Weight: 225 lb BMI 39.8 BP 101/58 L Intake Visit Reasons: discuss hysterectomy Vascular Nurse Required: No Is patient in pain?: No Allergies aspirin (ASA) Allergy (Intermediate, Verified 09/20/24 15:52) Swelling Iodinated Contrast Media (contrast dye - iodinated) Allergy (Mild, Verified 09/20/24 15:52) Hives levofloxacin (From Levaquin) Allergy (Verified 09/20/24 15:52) Other naproxen Allergy (Verified 09/20/24 15:52) Other Penicillins Allergy (Verified 09/20/24 15:52) Other Medications ???Medication ???Instructions ???Recorded ???Confirmed ???Type cholecalciferol (vitamin D3) 1,250 1,250 mcg PO QWEEK 09/20/24 07/07/21 History mcg (50,000 unit) capsule glucosamine HCl [...] Weight Infant Gen [facility] FOB Unknown Spencer Unknown Ngozi Unknown [...] CPT C (more content not included)... Normal [facility] Surgery Specimen Level Nilda 09-20-2024 Surgery Specimen Level IV -------- Patient Age/Sex Location Account Attending Physician -------- SILKE LOPEZ 58/F [facility] [id number] [facility] -------- Specimen: [id number] Received: 09/20/24 Status: SOHAM Ann Num: [id number] Spec Type: ENDOM BX/C Subm Dr: Dr. So Jamison, DO HEADER OPERATION: EMB PRE-OP DIAGNOSIS: Simple endometrial hyperplasia without atypia TISSUE SUBMITTED: A- Endometrial lining -------- MICROSCOPIC DIAGNOSIS A. Endometrium, simple hyperplasia without atypia", biopsy - Scant superficial epithelium - see [...] of the specimen may not survive processing. NC 09/23/2024 CPT:26321 -------- Patient Age/Sex Location Account Attending Physician -------- [facility] 58[facility] [id number] [facility] -------- Signed (signature on file) Dr. Debbie Taylor MD 09/26/24 1730 -------- Normal [facility] Comment on above: Performed By: #### P SUIV ####[facility] [address] [facility] [place], [address] Vitamin D,25 Hydroxyon 09-03 Vitamin D 25-OH 30.0 ng/mL Normal 30-100 [facility] Comment on above: Result Comment: Magdalena min D Status Deficiency: <20 ng/mL (50nmol/L) Insufficiency: 20-30 ng/mL (50-75 nmol/L) Sufficiency: 30-100 ng/mL (75-250 nmol/L) Toxicity: >100 ng/mL (>250 nmol/L) Performed By: #### L 501.5207 #### [facility] [address] [place], [place], [address] Echo Completeon 07-15-2024 Echo [facility] Cardiovascular Services [address] [facility] [facility] [place] [address] Echo Complete 07/15/24 1316 MR#: [id number] Acct: [id number] Name: SILKE LOPEZ Rep #: [id number] : 1965 58 From: Maikol Sanchez MD Attending Dr: EDGAR Long Status: REG C LI Ordering Dr: Leigha Wynn NP PEST CONTROL 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-C Date: 07/15/24 Location: [facility] Sex: F C Admitted: Reason For Study [...] Wynn Performed By: Kayce Barcenas RDCS 07/15/24 162 Date Maikol Sanchez MD CC: PEST CONTROL 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Star Wynn Date Dictated: 07/15/241315 Date Transcribed: 07/15/241628 Window Display Designer: Signed Normal [facility] Echocardiogram study reportO rdered By: Maikol Sanchez on 07-15-2024 Study report [facility] Cardiovascular Services [address] [place] [address] Echo Complete 07/15/241315 MR#: [id number] Acct: [id number] Name: SILKE LOPEZ Rep #:[id number] : 1965 58 From: Maikol Turner Attending Dr: EDGAR Long tatus: REG CLI Ordering Dr: Leigha Wynn NP Onur e: 07/15/24 Location: [facility] Sex: F C Admitted: Reason For [...] By: Kayce Barcenas RDCS 07/15/24 1629 Date _ Maikol Sanchez MD CC: PEST CONTROL 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-C Leigha Wynn ~ Date Dictated: 07/15/24 1316 Date Transcribed: 07/15/24 162 Window Display Designer: Signed [facility] Work Phone: [phone] 06-11-2024 Calcium [Mass/Vol] 9.1 mg/dL Normal 7.6-11.0 [facility] Comment on above: Performed By: #### L 501.5200 #### [facility] [address] [place], [address] PTH intactOrdered By: Coleen Adams on 06-11-2024 Parathyroid Hormone (Intact) 56 pg/mL 11-61 [facility] PTHINon 06-11-2024 PTH 56 pg/mL Normal [facility] Comment on above: Performed By: #### L 501.5200 #### [facility] [address] [place], [address] Serum or plasma calcium leta urement (mass/volume)Ordered By: Errol Adams on 06-11-2024 Calcium [Mass/Vol] 9.1 mg/dL 7.6-11.0 [facility] Surgery Visit Reporton 06-11 Surgery Visit Report [facility] [address] [place] [address] OFFICE VISIT Date of Service: 06/11/24 MR#: [id number] Acct: [id number] Name: SILKE LOPEZ Rep #: [id number] : 1965 Provider: Dr. Errol santiago MD Age/Sex: 58/F Location: [facility] Status: Signed Intake Vital Signs 06/04/24 06:38 Height 5 ft 3 in Intake Visit Reasons: PARATHYROIDECTOMY 06-04 Chief Complaint: parathyroidectomy 06/04 Is patient in [...] Post Op Diagnoses S/P parathyroidectomy Z98.890; Z90.89 [facility] Medical History Wears glasses Arthritis Scoliosis Non-smoker [...] confirm understa (more content not included)... Normal [facility] Vitamin D, 25-hydroxyOrdered By: Errol Adams on 06-11-2024 Vitamin D 25-Hydroxy 21.3 ng/mL Low 30-[address] [facility] Comment on above: Vitamin D StatusDefi ciency: <20 ng/mL (50nmol/L)Insufficiency: 20-30 ng/mL (50-75 nmol/L)Sufficiency: 30-100 ng/mL (75-250 nmol/L)Toxicity: >100 ng/mL (>250 nmol/L) Vitamin D,25 Hydroxyon 06-11 Vitamin D 25-OH 21.3 ng/mL Low 30-100 [facility] Comment on above: Result Comment: Magdalena min D Status Deficiency: <20 ng/mL (50nmol/L) Insufficiency: 20-30 ng/mL (50-75 nmol/L) Sufficiency: 30-100 ng/mL (75-250 nmol/L) Toxicity: >100 ng/mL (>250 nmol/L) Performed By: #### L 501.5200 #### [facility] [address] [place], [address] Discharge Instructionon 0 Discharge Instruction [facility] Medical Records Department [address] [place] [address] Instructions for Home/Discharge Instructions 06/04/24 1014 MR#: [id number] Acct: [id number] Name: SILKE LOPEZ Rep #: [id number] : 1965 58 From: Errol Adams MD PCP: EDGAR Long Status:DEP [facility] Discharge Instructions Diet Discharge Diet: No restrictions [...] notify Dr. Adams's office immediately. Print Language: Sudanese Discharge Orders/Prescriptions Prescriptions: Continued cholecalciferol (vitamin D3) [Vitamin D3] 50 mcg (2,000 unit) capsule 50 mcg PO DAILY triamcinolone acetonide 0.5 % ointment 1 applic TOPICAL .COMPLEX Qty: 45 1RF Rx Instructions: 1 application topically to bilateral legs 1-2 x per day; Referrals / Follow Up: Leigha Wynn NP, PEST CONTROL 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-C [Primary Care Provider] - Disposition Disposition (needs filled in before D/C Order can be placed): Home, Self Care 06/04/24 3057 Errol Adams MD CC: PEST CONTROL 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-C Leigha Wynn Signed Normal [facility] Frozen Section (charge)on Frozen Section (charge) -------- Patient Age/Sex Location Account Attending Physician -------- SILKE LOPEZ 58/F [facility] [id number] Dr. Errol Adams MD -------- Specimen: [id number] Received: 06/04/24 Status: SOHAM Ann Num: [id number] Spec Type: PARATHY Subm Dr: Dr. Errol Adams MD HEADER OPERATION: Parathyroidectomy with IONM, PTH, frozen section PRE-OP DIAGNOSIS: Primary hyperparathyroidism TISSUE SUBMITTED: A- Left inferior parathyroid -------- FROZEN SECTION DIAGNOSIS A. Left inferior parathyroid, parathyroidectomy: Parathyroid tissue (0.861gm). MS.mr 06/04/2024 MICROSCOPIC DIAGNOSIS A. Left inferior parathyroid, hyperparathyroidism , parathyroidectomy: * Parathyroid gland hyperplasia (0.861 gram). MICROSCOPIC DESCRIPTION Slides are reviewed. GROSS DESCRIPTION A. Received fresh for intraoperative consultation in a container labeled with the patient's name, date of , and "left inferior parathyroid/FS and weight" is a 0.861 g and 1.4 x 1.1 x 0.9 cm red and encapsulated portion of soft tissue. It is trisected to reveal orange-brown, uniform surfaces. A portion is submitted for frozen section analysis. The remaining remnants are submitted entirely as follows:A1. Frozen section remnantA2. Remainder of specimen [facility] 06-04-2024 CPT:75454,14430 -------- Patient Age/Sex Location Account Attending Physician -------- SILKE LOPEZ 58/F [facility] [id number] Dr. Errol Adams MD -------- Signed (signature on file) Dr. Debbie Taylor MD 06/20/24 1654 -------- Normal [facility] Comment on above: Performed By: #### P FSC ####[facility] [address] [facility] [place], [address] MR/POSTOP.ANE 06-04-2024 MR/POSTOP.[facility] Medical Records Department [address] [place] [address] Anesthesia Postop Eval I 06/04/24 1134 MR#: [id number] Acct: [id number] Name: SILKE LOPEZ Rep #: [id number] : 1965 58 From: Victorino Elias CRNA PCP: EDGAR Long Status:REG SDC Y Race: C Location: [place] [address] Anesthesia: Postop Eval I Current Vital Signs [...] Anesthesia document: Postop Eval 1 completed: Yes 06/04/245 Date Victorino Elias CRNA Cosigner Signature: Date CC: Signed Normal [facility] MR/[id number] 06-04-2024 MR/POSTOPAN2 [facility] Medical Records Department [address] [facility] [place] [address] Anesthesia Postop Eval II 06/04/241915 MR#: [id number] Acct: [id number] Name: SILKE LOPEZ Rep #: [id number] : 1965 58 From: Amado Alvarez MD PCP: EDGAR Long Status[facility] Y Race: C Location: [facility] Anesthesia Postop Eval I Sum Postop Eval Completion status Anesthesia document: Postop Eval 1 completed: Yes Anesthesia Postop Eval I Summary Anesthesia Postop Eval I Summary: Anesthesia Postop Eval I: Assessment Summary Airway patent Yes 06/04/24 11:35 MANAGER INTEGRATION.JBLOU Spontaneous unlabored Yes 06/04/24 11:35 MANAGER INTEGRATION.JBLOU respirations Mental status Awake,Calm 06/04/24 11:35 MANAGER INTEGRATION.JBLOU nausea No 06/04/24 11:35 MANAGER INTEGRATION.JBLOU Vomiting No 06/04/24 11:35 MANAGER INTEGRATION.JBLOU Anesthesia Postop Eval I: Fluid Summary Crystalloid volume administer 1,500 06/04/24 11:35 MANAGER INTEGRATION.JBLOU (ml) Colloids volume administered ( ml) Blood Product volume administered (ml) Total IV fluid infused 1,500 06/04/24 11:35 MANAGER INTEGRATION.JBLOU Anesthesia Postop Eval I: Summary Notes Anesthesia Complication No 06/04/24 11:35 MANAGER INTEGRATION.JBLOU Anesthesia Complication Comment: Post-operative progress note Anesthesia: Postop Eval II Evaluation Mental status: Awake and Calm Pain Level: 1 nausea: No Vomiting: No Complications Anesthesia Complication: No 06/04/241915 Date Amado Alvarez MD Cosigner Signature: Date CC: Signed Normal [facility] Operative Reporton 5 Operative Report [facility] Medical Records Department [address] [place] [address] Operative Report 06/04/24 1012 MR#: [id number] Acct: [id number] Name: SILKE LOPEZ Rep #: [id number] : 1965 58 From: Errol Adams MD PCP: EDGAR Long Status:[facility] Location: [facility] Operative Report (Standard) Operative Information Date of Procedure: 06/04/24 Pre-Operative Diagnosis: 1. Primary Hyperparathyroidism 2. Vitamin D deficiency Post-Operative Diagnosis: 1. Primary Hyperparathyroidism secondary to left inferior parathyroid adenoma 2. Vitamin D deficiency Surgery/Procedure Performed: Minimally invasive parathyroidectomy with intraoperative PTH and nerve monitoring learning officer: Yes Multimedia Services Manager: Dai Carrero Tasks completed by first mate: [...] Phase II 06/04/24 14:01 Procedure Start Time: 08:22 Procedure Stop Time: 10:13 Select all DRAINS/GRAFTS/IMPLANT [...] for thes (more content not included)... Normal [facility] PTH intactOrdered By: Coleen Adams on 06-04-2024 Parathyroid Hormone (Intact) 22 pg/mL -[address] [place] [address] PTHINon 06-04-2024 PTH 22 pg/mL Normal [address] Comment on above: Performed By: #### L 501.5200 #### [facility] [facility] [address] [place], [address] PTH 51 pg/mL Normal [address] [place] [address] Comment on above: Order Comment: [id number] No N N S [id number] TOTAL HYSTERERCTOMY BSO PREOP Performed By: #### B TSPAT, L500.4050, L501.9520, L100.0100, L506.1001 #### [facility] [address] [place], [address] PTH 68 pg/mL High [address] [place] [address] Comment on above: Order Comment: Comme nts: PTH 10 MIN Performed By: #### L 509.1000 ####[facility] [address] [place], [address] PTH 89 pg/mL High [address] [place] [address] Comment on above: Order Comment: Comme nts: PTH INTRAOPERATIVE 5 MIN Performed By: #### L 501.9520 #### [facility] [address] [place], [address] PTH 790 pg/mL High [address] [place] [address] Comment on above: Order Comment: Comme nts: PTH INTRAOPERATIVE BASELINE @ 0838 Performed By: #### L 501.5200 #### [facility] [address] [place], [address] PTH 144 pg/mL High [address] [place] [address] Comment on above: Performed By: #### B TSPAT, L500.4050, L501.9520, L100.0100, L506.1001 #### [facility] [address] [facility] [place], [address] 12 Lead EKGon 05-23-2024 12 Lead EKG [facility] Cardiovascular Services [address] [place] [address] 12 Lead EKG 05/23/24 1032 MR#: [id number] Acct: [id number] Name: SILKE LOPEZ Rep #: [id number] : 1965 58 From: Maikol Sanchez MD Attending Dr: Dr. Errol Adams MD Status: PRE SDC Ordering Dr: Amado Alvarez MD Date: 05/23/24 Location: [facility] Sex: F C Admitted: Test Reason : [...] Abnormal ECG Confirmed by MAIKOL SANCHEZ MD ([id number]), supervising film or videotape editor RAY HAUSER ([id number]) on 05/23/2024 12:52:44 PM Referred By: Errol Adams Confirmed By: MAIKOL SANCHEZ MD 05/23/24 1252 Date Maikol Sanchez MD CC: ISRRAEL-Dilma Wynn; Dr. Amado Alvarez MD; Dr. Errol Adams MD Signed Normal [facility] Electrocardiogram reportOrde red By: Maikol Sanchez on 05-23-2024 EKG study [facility] Cardi[facility] Services [address] [place] [address] 12 Lead EKG 05/23/24 1032 MR#: [id number] Acct: [id number] Name: SILKE LOPEZ Rep #:[id number] : 1965 58 From: Maikol Sanchez MD Attending Dr: Dr. Errol Adams MD Status: PRE SDC Ordering Dr: Amado Alvarez MD Date: 05/23/24 Location: [facility] Sex: F C Admitted: Test Reason : [...] Abnormal ECG Confirmed by MAIKOL SANCHEZ MD ([id number]), supervising film or videotape editor RAY HAUSER ([id number]) on 2:52:44 PM Referred By: Errol Adams Confirmed By: MAIKOL SANCHEZ MD 05/23/24 1252 Date _ Maikol Sanchez MD CC: PEST CONTROL 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-C Leigha Wynn; Dr. Amado Alvarez MD; Dr. Errol Adams MD ~ Signed [facility] Work Phone: MR/PATJudi 05-23-2024 /[facility] Records Department [address] [place] [id number] PAT - Anesthesia 05/23/24 1429 MR#: [id number] Acct: [id number] Name: SILKE LOPEZ Rep #: [id number] : 1965 58 From: Amado Alvarez MD PCP: EDGAR Long Status:PRE SD Y Race: C Location: [facility] Pre-Assessment Diagnosis/Proposed Procedure Planned Operative Procedure(s): Parathyroidectomy w/IONM, PTH, and frozen section Anesthesia History Anesthesia History - tripe finisher: Anesthesia History - tripe finisher Hx Hospitalization No 05/21/24 11:11 Any Problems [...] take am of surgery PONV PONV - tripe finisher: PONV - tripe finisher Female Yes 05/21/24 11:11 HX of Motion [...] 05/01/24 08:20 Respiratory Assessment Respiratory Assessment - tripe finisher: Respiratory Tract Infection Hx - tripe finisher Hx Respiratory Tract Infection No 05/21/24 11:11 STOP Sleep Apnea STOP Sleep Apnea - tripe finisher: STOP Sleep Apnea - tripe finisher Hx Hypertension No 05/21/24 11:11 Hx Sleep [...] Tobacco Use History Tobacco Use History - tripe finisher: Tobacco Use History - tripe finisher Tobacco Use Smoking Status Never smoker 05/21/24 11:11 Hx Tobacco Use No 05/21/24 11:11 Years Smoking Packs Smoked per Day Smoking Cessation Date was within the last 15 years Hx Smoking Cessation Date Hx Smoking Cessation Counseling Hematologic Medial History Hematologic Hx - tripe finisher: 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 Specify any problems Hx of Preganancy in last 3 No 05/21/24 11:11 Months Nurse Filling Out Transfusion VCHRPAUL 05/21/24 11:11 Questions: Date: 05/21/24 05/21/24 11:11 Time: 11:12 05/21/24 11:11 Patient unable to answer at this time (ie. confused, unrespo /Reproductio n History /Reproductiv e History - tripe finisher: /Reproductiv e Hx- tripe finisher Hx Now No 05/21/24 11:11 Gestational Age (in weeks): EDC: Hx Hx Para Hx Section SAB No 05/21/24 11:11 [facility] Medical History (Updated 05/21/24 @ 11:11 by [...] 05/21/24 11:0 (more content not included)... Normal [facility] Anion gap in Serum or Plasma Ordered By: Leigha Wynn on 05-17-2024 Anion gap [Moles/Vol] 9 mmol/L 5-15 [facility] BUN/creatinine ratioOrdered By: Leigha Wynn on 05-17-2024 Urea nitrogen/Creatinine [Mass ratio] 26.9 mg/mg High 10-20 [facility] Bilirubin, totalOrdered By: Leigha Wynn on 05-17-2024 Bilirubin [Mass/Vol] 0.44 mg/dL 0.00-1.[address] [facility] CBC-Complete Blood Cnt No Di ffon 05-17-2024 Erythrocyte distribution width (RBC) [Ratio] 12.9 % Normal 11.6-14.6 [facility] Comment on above: Performed By: #### L 501.5200 #### [facility] [address] [place], [address] Hematocrit (Bld) [Volume fraction] 44.7 % Normal 37-47 [facility] Comment on above: Performed By: #### L 501.5200 #### [facility] [address] [place], [address] Hemoglobin (Bld) [Mass/Vol] 15.0 g/dL Normal 12.0-15.0 [facility] Comment on above: Performed By: #### L 501.5200 #### [facility] [address] [place], [address] MCH (RBC) [Entitic mass] 31.4 pg Normal 27.0-32.0 [facility] Comment on above: Performed By: #### L 501.5200 #### [facility] [address] [place], [address] MCHC (RBC) [Mass/Vol] 33.6 g/dL Normal 32-36 [facility] Comment on above: Performed By: #### L 501.5200 #### [facility] [address] [place], [address] MCV (RBC) [Entitic vol] 93.5 fL Normal 81-99 [facility] Comment on above: Performed By: #### L 501.5200 #### [facility] [address] [place], [address] Platelet mean volume (Bld) [Entitic vol] 10.8 fL Normal 6.2-12.0 [facility] Comment on above: Performed By: #### L 501.5200 #### [facility] [address] [place], [address] Platelets (Bld) [#/Vol] 276 10*3/uL Normal 150-450 [facility] Comment on above: Performed By: #### L 501.5200 #### [facility] [address] [place], [address] RBC (Bld) [#/Vol] 4.78 10*6/uL Normal 4.2-5.4 [facility] Comment on above: Performed By: #### L 501.5200 #### [facility] [address] [place], [address] RDW SD 45.0 fl High 35.1-43.9 [facility] Comment on above: Performed By: #### L 501.5200 #### [facility] [address] [place], [address] WBC (Bld) [#/Vol] 6.3 10*3/uL Normal 4.4-11.0 [facility] Comment on above: Performed By: #### L 501.5200 #### [facility] [address] [place], [address] Calculated very low density lipoprotein (VLDL) cholesterol measurementOrdered By: Leigha Wynn on 05-17-2024 Calculated very low density lipoprotein (VLDL) cholesterol measurement 19 mg/dL 5-40 [facility] VLDL Cholesterol 19 mg/dL 5-40 [facility] Carbon dioxide, total [Moles /volume] in Central venous bloodOrdered By: Leigha Wynn on 05-17-2024 CO2 [Moles/Vol] 25.0 mmol/L 21.0-32.0 [facility] Chloride assayOrdered By: Jairo Wynn on 05-17-2024 Chloride [Moles/Vol] 105 mmol/L 98-[address] [facility] Comprehensive Metabolic Prof ilon 05-17-2024 Albumin [Mass/Vol] 4.1 g/dL Normal 3.5-5.0 [facility] Comment on above: Performed By: #### B TSPAT, L500.4050, L501.9520, L100.0100, L506.1001 #### [facility] [address] [place], [address] Albumin/Globulin [Mass ratio] 1.5 {ratio} Normal 0.9-2.4 [facility] Comment on above: Performed By: #### B TSPAT, L500.4050, L501.9520, L100.0100, L506.1001 #### [facility] [address] [place], [address] ALK PHOS 64 U/L Normal 35-104 [facility] Comment on above: Performed By: #### B TSPAT, L500.4050, L501.9520, L100.0100, L506.1001 #### [facility] [address] [place], [address] ALT [Catalytic activity/Vol] 33 U/L Normal <=34 [facility] Comment on above: Performed By: #### B TSPAT, L500.4050, L501.9520, L100.0100, L506.1001 #### [facility] [address] [place], [address] AST [Catalytic activity/Vol] 27 U/L Normal <=31 [facility] Comment on above: Performed By: #### B TSPAT, L500.4050, L501.9520, L100.0100, L506.1001 #### [facility] [address] [place], [address] Bilirubin [Mass/Vol] 0.44 mg/dL Normal 0.00-1.[address] [facility] Comment on above: Performed By: #### B TSPAT, L500.4050, L501.9520, L100.0100, L506.1001 #### [facility] [address] [place], [address] BUN/CRE 26.9 RATIO High 10-20 [facility] Comment on above: Performed By: #### B TSPAT, L500.4050, L501.9520, L100.0100, L506.1001 #### [facility] [address] [place], [address] Calcium [Mass/Vol] 11.4 mg/dL High 7.6-11.0 [facility] Comment on above: Performed By: #### B TSPAT, L500.4050, L501.9520, L100.0100, L506.1001 #### [facility] [address] [place], [address] Chloride [Moles/Vol] 105 mmol/L Normal 98-[address] [facility] Comment on above: Performed By: #### B TSPAT, L500.4050, L501.9520, L100.0100, L506.1001 #### [facility] [address] [place], [address] CO2 [Moles/Vol] 25.0 mmol/L Normal 21.0-32.0 [facility] Comment on above: Performed By: #### B TSPAT, L500.4050, L501.9520, L100.0100, L506.1001 #### [facility] [address] [place], [address] Creatinine [Mass/Vol] 0.89 mg/dL Normal 0.70-1.20 [facility] Comment on above: Performed By: #### B TSPAT, L500.4050, L501.9520, L100.0100, L506.1001 #### [facility] [address] [place], [address] GAP 9 Normal 5-15 [facility] Comment on above: Performed By: #### B TSPAT, L500.4050, L501.9520, L100.0100, L506.1001 #### [facility] [address] [place], [address] GFR/1.73 sq M.predicted among non-blacks MDRD (S/P/Bld) [Vol rate/Area] 75 mL/min/{1.73_m2} Normal >60 [facility] Comment on above: Result Comment: mL/m in/1.73m2 CKD-EPI Creatinine Equation (2020) Performed By: #### B TSPAT, L500.4050, L501.9520, L100.0100, L506.1001 #### [facility] [address] [place], [address] Globulin (S) [Mass/Vol] 2.8 g/dL Normal 2.2-4.2 [facility] Comment on above: Performed By: #### B TSPAT, L500.4050, L501.9520, L100.0100, L506.1001 #### [facility] [address] [place], [address] Glucose [Mass/Vol] 91 mg/dL Normal 70-99 [facility] Comment on above: Performed By: #### B TSPAT, L500.4050, L501.9520, L100.0100, L506.1001 #### [facility] [address] [place], [address] Potassium [Moles/Vol] 4.6 mmol/L Normal 3.3-5.1 [facility] Comment on above: Performed By: #### B TSPAT, L500.4050, L501.9520, L100.0100, L506.1001 #### [facility] [address] [place], [address] Sodium [Moles/Vol] 138 mmol/L Normal 133-145 [facility] Comment on above: Performed By: #### B TSPAT, L500.4050, L501.9520, L100.0100, L506.1001 #### [facility] [address] [place], [address] T PROT 6.9 g/dL Normal 5.9-8.4 [facility] Comment on above: Performed By: #### B TSPAT, L500.4050, L501.9520, L100.0100, L506.1001 #### [facility] [address] [place], [address] Urea nitrogen [Mass/Vol] 24 mg/dL High 4-19 [facility] Comment on above: Performed By: #### B TSPAT, L500.4050, L501.9520, L100.0100, L506.1001 #### [facility] [address] [place], [address] Erythrocyte distribution wid th ratioOrdered By: Leigha Wynn on 05-17-2024 Erythrocyte distribution width (RBC) [Ratio] 12.9 % 11.6-14.6 [facility] Erythrocyte distribution wid th standard deviationOrdered By: Leigha Wynn on 05-17-2024 Erythrocyte distribution width (RBC) [Entitic vol] 45.0 fL High 35.1-43.9 [facility] Erythrocyte distribution width (RBC) [Ratio] 45.0 fl High 35.1-43.9 [facility] GFR/1.73 sq M.predicted khai g non-blacks MDRD (S/P/Bld) [Vol rate/Area]Ordered By: Leigha Wynn on 05-17-2024 Estimated GFR (MDRD) Non-Af Amer 75 >60 [facility] Comment on above: mL/min/1.73m2 CKD-EP I Creatinine Equation (2020) Glomerular filtration rate ( GFR) estimation/1.73 sq m using serum, plasma, or whole bOrdered By: Leigha Wynn on 05-17-2024 GFR/1.73 sq M.predicted among non-blacks MDRD (S/P/Bld) [Vol rate/Area] 75 mL/min/{1.73_m2} >60 [facility] Comment on above: mL/min/1.73m2 CKD-EP I Creatinine Equation (2020) Hematocrit Auto (Bld) [Volum e fraction]Ordered By: Leigha Wynn on 05-17-2024 Hematocrit (Bld) [Volume fraction] 44.7 % 37-47 [facility] Hemoglobin A1con 05-17-2024 HbA1c (Bld) [Mass fraction] 5.6 % Low <=5.6 [facility] Comment on above: Performed By: #### B TSPAT, L500.4050, L501.9520, L100.0100, L506.1001 #### [facility] [address] [place], [address] Hemoglobin A1c percentageOrd ered By: Leigha Wynn on 05-17-2024 HbA1c (Bld) [Mass fraction] 5.6 % Low >5.7 [facility] Hemoglobin measurementOrdere d By: Leigha Wynn on 05-17-2024 Hemoglobin (Bld) [Mass/Vol] 15.0 g/dL 12.0-15.0 [facility] Hepatitis C antibodyOrdered By: Leigha Wynn on 05-17-2024 Hepatitis C Antibody Non-Reactive Nonreactive W [facility] Comment on above: Reactive: Presumptiv e evidence of antibodies to HCV. Follow CDC recommendations for supplemental testing.Non-Reactive: Antibodies to HCV were not detected; does not exclude the possibility of exposure to HCVReactive Results are presumptive evidence of antibodies to HCV. Follow CDC recommendations for supplemental testing.Order confirmation testing: HCV Quant by PCR testing - HCVPCR #[id number] Non Reactive: < 0.8 Equivocal: >/= 0.8 to < 1.0 Reactive: >/= 1.0The CDC requires that a reactive/equivocal HCV antibody result be sent out for confirmation. HCV Quant by PCR testing. [id number] 05-17-2024 Hepatitis C Ab Non-Reactive Normal Nonreactive [facility] Comment on above: Result Comment: Reac tive: Presumptive evidence of antibodies to HCV. Follow CDC recommendations for supplemental testing. Non-Reactive: Antibodies to HCV were not detected; does not exclude the possibility of exposure to HCV Reactive Results are presumptive evidence of antibodies to HCV. Follow CDC recommendations for supplemental testing. Order confirmation testing: HCV Quant by PCR testing - HCVPCR #[id number] Non Reactive: < 0.8 Equivocal: >/= 0.8 to < 1.0 Reactive: >/= 1.0 The [facility] requires that a reactive/equivocal HCV antibody result be sent out for confirmation. HCV Quant by PCR testing. Performed By: #### B TSPAT, L500.4050, L501.9520, L100.0100, L506.1001 #### [facility] [address], [address] L506.1001on 05-17-2024 Vitamin D 25-OH 22.3 ng/mL Low 30-100 [facility] Comment on above: Result Comment: Magdalena min D Status Deficiency: <20 ng/mL (50nmol/L) Insufficiency: 20-30 ng/mL (50-75 nmol/L) Sufficiency: 30-100 ng/mL (75-250 nmol/L) Toxicity: >100 ng/mL (>250 nmol/L) Performed By: #### B TSPAT, L500.4050, L501.9520, L100.0100, L506.1001 #### [facility] [address] [place], [address] LDL calc ser/plasOrdered By: Leigha Wynn on 05-17-2024 Cholesterol in LDL [Mass/Vol] 128 mg/dL [facility] Comment on above: Hhujdyzqxl=790-414 m g/dL & Higher Ngfh=626 mg/dL or greater LDL Cholesterol, Calculated 128 mg/dL [facility] Comment on above: Zalqlnlfli=893-287 m g/dL & Higher Mxwd=149 mg/dL or greater Laboratory - Chemistry and C hemistry - challengeOrdered By: Leigha Wynn on 05-17-2024 AST [Catalytic activity/Vol] 27 U/L <32 [facility] Lipid Profileon 05-17-2024 CHOL:HDL 6.04 Normal [facility] Comment on above: Performed By: #### B TSPAT, L500.4050, L501.9520, L100.0100, L506.1001 #### [facility] [address] [place], [address] Cholesterol [Mass/Vol] 177 mg/dL Normal <=200 [facility] Comment on above: Result Comment: Chol esterol level, Desirable <200 mg/dL Borderline high cholesterol 200-239 mg/dL High cholesterol >=240 mg/dL Recommendations of the NCEP Adult Treatment Panel for the following risk-cutoff thresholds for the [place] population. Performed By: #### B TSPAT, L500.4050, L501.9520, L100.0100, L506.1001 #### [facility] [address] [place], [address] Cholesterol in HDL [Mass/Vol] 29 mg/dL Low [facility] Comment on above: Result Comment: Liv onal Cholesterol Education Program (NCEP) guidelines: <40 mg/dL: Low HDL-cholesterol (major risk factor for CHD) >= 60 mg/dL: High HDL-cholesterol (negative risk factor for CHD) HDL-cholesterol is affected by a number of factors, e.g. smoking, exercise, hormones, sex and age. Performed By: #### B TSPAT, L500.4050, L501.9520, L100.0100, L506.1001 #### [facility] [address] [place], [address] Cholesterol in LDL [Mass/Vol] 128 mg/dL Normal [facility] Comment on above: Result Comment: Bord meclej=011-870 mg/dL Higher Dlpl=858 mg/dL or greater Performed By: #### B TSPAT, L500.4050, L501.9520, L100.0100, L506.1001 #### [facility] [address] [place], [address] Cholesterol in VLDL [Mass/Vol] 19 mg/dL Normal 5-40 [facility] Comment on above: Performed By: #### B TSPAT, L500.4050, L501.9520, L100.0100, L506.1001 #### [facility] [address] [place], [address] Triglyceride [Mass/Vol] 97 mg/dL Normal [facility] Comment on above: Result Comment: The drugs N-Acetylcysteine and Metamizole may falsely depress this assay. Normal range: <150 mg/dL Borderline High: 150-199 mg/dL High: 200-499 mg/dL Very High: >500 mg/dL Performed By: #### B TSPAT, L500.4050, L501.9520, L100.0100, L506.1001 #### [facility] [address] [place], [address] MCV (mean corpuscular volume ) determinationOrdered By: Leigha Wynn on 05-17-2024 MCV (RBC) [Entitic vol] 93.5 fL 81-99 [facility] Mean corpuscular hemoglobin (MCH) determinationOrdered By: Leigha Wynn on 05-17-2024 MCH (RBC) [Entitic mass] 31.4 pg 27.0-32.0 [facility] Mean corpuscular hemoglobin concentration (MCHC) determinationOrdered By: Leigha Wynn on 05-17-2024 MCHC (RBC) [Mass/Vol] 33.6 g/dL 32-36 [facility] Mean platelet volume determi nationOrdered By: Leigha Wynn on 05-17-2024 Platelet mean volume (Bld) [Entitic vol] 10.8 fL 6.2-12.0 [facility] PTH intactOrdered By: Leigha Wynn on 05-17-2024 Parathyroid Hormone (Intact) 172 pg/mL High [facility] PTHINon 05-17-2024 PTH 172 pg/mL High [facility] Comment on above: Performed By: #### L 501.5200 #### [facility] [address] [place], [address] Platelet countOrdered By: Jairo Wynn on 05-17-2024 Platelets (Bld) [#/Vol] 276 10*3/uL 150-450 [facility] Potassium (Unsp spec) [Mass/ Vol]Ordered By: Leigha Wynn on 05-17-2024 Potassium [Moles/Vol] 4.6 mmol/L 3.3-5.1 [facility] Potassium measurement (mass/ volume)Ordered By: Leigha Wynn on 05-17-2024 Potassium (Unsp spec) [Mass/Vol] 4.6 mmol/L 3.3-5.1 [facility] RBC Auto (Bld) [#/Vol]Ordere d By: Leigha Wynn on 05-17-2024 RBC (Bld) [#/Vol] 4.78 10*6/uL 4.2-5.4 [facility] Screening total cholesterol/ high density lipoprotein (HDL) cholesterol ratioOrdered By: Leigha Wynn on 05-17-2024 Cholesterol.total/Chol esterol in HDL [Mass ratio] 6.04 {ratio} [facility] Serum creatinine measurement (mass/volume)Ordered By: Leigha Wynn on 05-17-2024 Creatinine [Mass/Vol] 0.89 mg/dL 0.70-1.20 [facility] Serum globulin measurementOr dered By: Leigha Wynn on 05-17-2024 Globulin (S) [Mass/Vol] 2.8 g/dL 2.2-4.2 [facility] Serum glucose measurement (m ass/volume)Ordered By: Leigha Wynn on 05-17-2024 Glucose [Mass/Vol] 91 mg/dL 70-99 [facility] Serum or plasma alanine ortiz otransferase (ALT) measurementOrdered By: Leigha Wynn on 05-17-2024 ALT [Catalytic activity/Vol] 33 U/L <35 [facility] Serum or plasma albumin leta urement (mass/volume)Ordered By: Leigha Wynn on 05-17-2024 Albumin [Mass/Vol] 4.1 g/dL 3.5-5.0 [facility] Serum or plasma albumin/glob ulin mass ratioOrdered By: Leigha Wynn on 05-17-2024 Albumin/Globulin [Mass ratio] 1.5 {ratio} 0.9-2.4 [facility] Serum or plasma alkaline ailyn sphatase measurementOrdered By: Leigha Wynn on 05-17-2024 ALP [Catalytic activity/Vol] 64 U/L 35-104 [facility] Serum or plasma calcium leta urement (mass/volume)Ordered By: Leigha Wynn on 05-17-2024 Calcium [Mass/Vol] 11.4 mg/dL High 7.6-11.0 [facility] Serum or plasma cholesterol in HDL measurement (mass/volume)Ordered By: Leigha Wynn on 05-17-2024 Cholesterol in HDL [Mass/Vol] 29 mg/dL Low >40 [facility] Comment on above: National Cholesterol Education Program (NCEP) guidelines:<40 mg/dL: Low HDL-cholesterol (major risk factor for CHD)>= 60 mg/dL: High HDL-cholesterol (negative risk factor for CHD)HDL-cholesterol is affected by a number of factors, e.g. smoking, exercise, hormones, sex and age. Serum or plasma cholesterol measurement (mass/volume)Ordered By: Leigha Wynn on 05-17-2024 Cholesterol [Mass/Vol] 177 mg/dL <201 [facility] Comment on above: Cholesterol level, D esirable <200 mg/dLBorderline high cholesterol 200-239 mg/dLHigh cholesterol >=240 mg/dLRecommendations of the NCEP Adult Treatment Panel for the following risk-cutoff thresholds for the [place] population. Serum or plasma urea nitroge n measurement (mass/volume)Ordered By: Leigha Wynn on 05-17-2024 Urea nitrogen [Mass/Vol] 24 mg/dL High 4-19 [facility] Sodium levelOrdered By: Jerel Wynn on 05-17-2024 Sodium [Moles/Vol] 138 mmol/L 133-145 [facility] Total proteinOrdered By: Thea Wynn on 05-17-2024 Protein [Mass/Vol] 6.9 g/dL 5.9-8.4 [facility] Triglycerides measurementOrd ered By: Leigha Wynn on 05-17-2024 Triglyceride [Mass/Vol] 97 mg/dL <199 [facility] Comment on above: The drugs N-Acetylcy steine and Metamizole may falsely depress this assay. Normal range: <150 mg/dLBorderline High: 150-199 mg/dLHigh: 200-499 mg/dLVery High: >500 mg/dL Vitamin D, 25-hydroxyOrdered By: Leigha Wynn on 05-17-2024 Vitamin D 25-Hydroxy 22.3 ng/mL Low 30-[address] [facility] Comment on above: Vitamin D StatusDefi ciency: <20 ng/mL (50nmol/L)Insufficiency: 20-30 ng/mL (50-75 nmol/L)Sufficiency: 30-100 ng/mL (75-250 nmol/L)Toxicity: >100 ng/mL (>250 nmol/L) White blood cell (WBC) count Ordered By: Leigha Wynn on 05-17-2024 WBC (Bld) [#/Vol] 6.3 10*3/uL 4.4-11.0 [facility] Surgery Visit Reporton 05-01 Surgery Visit Report [facility] [address] [place] [address] OFFICE VISIT Date of Service: 05/01/24 MR#: [id number] Acct: [id number] Name: SILKE LOPEZ Rep #: [id number] : 1965 Provider: Dr. Errol santiago MD Age/Sex: 58/F Location: [facility] Status: Signed Intake Vital Signs 03/19/24 08:43 [...] QWEEK 03/19/2405/01 History mcg (1,000 unit) capsule [facility] Medical History Thyroid eye disease Primary hyperparathyroidism Hyperparathyroidism Screening for osteoporosis Surgical History S/P D C (status post dilation and curettage) S/P appendectomy Family History Father Cancer Prostate Sister Cancer cholangiocarcinoma- Bile duct Grandfather Cancer Prostate Social History household members: spouse current occupational status: employed current occupation: [employer] Smoking Status: Never smoker alcohol intake: never [...] Ionized calcium: [Value]mg/dL [date], PTH: 204.1 pg/mL (03/19/2024)???singula r value, Phosphorus: [Value] [date] Current medications [...] Psychiatric: No (more content not included)... Normal [facility] Dexa Bone Density Studyon Dexa Bone Density Study [facility] Imaging Services [address] [place] [address] Dexa Bone Density Study MR#: [id number] Acct: [id number] Name: SILKE LOPEZ Rep #: [id number] : 1965 F 58 From: Butch Kinney i DO PCP: Leigha Wynn, PEST CONTROL 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-C Status: REG CLI Study: Dexa Bone Density Study Date of Exam: 04/18/24 Exam# [id number] Ordering Dr: Salo Boles MD PROCEDURE: DEXA [...] of the [employer]'s Mcnairy for Metabolic Bone Disease, World Health Organization (WHO) Collaborating Mcnairy. 1-The 10-year probability of fracture may be lower than reported if the patient has received treatment. 2-Major Osteoporotic Fracture: Clinical Spine, Forearm, Hip or Shoulder. The T-scores are also available for review on the [facility] PACS or by accessing the [facility] electronic medical record. BD/Dexa Bone Density Study IMPRESSION: Osteopenia. Reading Location: STEPHANIEDEANNE CC: PEST CONTROL 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-C Leigha Wynn; Dr. Salo Boles MD Window Display Designer: Signed Normal [facility] Parathyroid Scanon Parathyroid scan [facility] Imaging Services [address] [place] [id number] Parathyroid Scan MR#: [id number] Acct: [id number] Name: SILKE LOPEZ Rep #: [id number] : 1965 F 58 From: Maverick Turner PCP: EDGAR Long Status: REG CLI Study: Parathyroid Scan Date of Exam: 04/09/24 Exam# [id number] Ordering Dr: Salo Boles MD PROCEDURE: PARATHYROID [...] a left inferior parathyroid adenoma. Reading Location: [id number] CC: EDGAR Wynn; Dr. Salo Boles MD Window Display Designer: Signed Normal [facility] Thyroidon 03-28-2024 Thyroid [facility] Imaging Services [address] [place] [address] 154551 Thyroid MR#: [id number] Acct: [id number] Name: SILKE LOPEZ Rep #: [id number] : 1965 F 58 From: Aris Morales MD PCP: EDGAR Long Status: REG CLI Study: Thyroid Date of Exam: 03/28/24 Exam# [id number] Ordering Dr: Salo Boles MD PROCEDURE: THYROID [...] NORMAL THYROID ULTRASOUND Reading Location: CLARA CC: EDGAR Wynn; Dr. Salo Boles MD Window Display Designer: Signed Normal [facility] Thyroid Peroxidase ABon -2 THYR PEROX AB < 9 Normal 0-34 [facility] Comment on above: Result Comment: Perf ormed at: - [facility] [address] [id number] Curve Saw Operator: Kyaw Bowie PhD, Phone: [phone] Performed By: #### B TSPAT, L500.4050, L501.9520, L100.0100, L506.1001 #### [facility] [address] [place], [place], [id number] DOrdered By: Robert Boles on 03-19-2024 Vitamin D 25-Hydroxy 32.7 ng/mL [facility] Comment on above: Vitamin D 25(OH) Sta tus Range Deficiency <20 ng/mL (50nmol/L) Insufficiency 20 - 30 ng/mL (50 - 75 nmol/L) Sufficiency 30 - 100 ng/mL (75 - 250 nmol/L) Toxicity >100 ng/mL (>250 nmol/L) Calcium,Totalon 03-19-2024 CA,Total 11.9 mg/dL High 8.5-10.1 [facility] Comment on above: Performed By: #### B TSPAT, L500.4050, L501.9520, L100.0100, L506.1003 #### [facility] [address] [place], [place], [id number] Endocrinology Visit Reporton 03-19-2024 Endocrinology Visit Report [facility] [address] [place], [place] [address] OFFICE VISIT Date of Service: 03/19/24 MR#: [id number] Acct: [id number] Name: SILKE LOPEZ Rep #: [id number] : 1965 Provider: Samantha Urias Age/Sex: 58/F Location: [facility] Status: Signed Intake Vital Signs 11/28/23 10:36 [...] is waiting to get hysterectomy due to "enlarged uterus". Surgery is on hold due to hypercalcemia. [...] Process: n (more content not included)... Normal [facility] Intact parathyroid hormone ( iPTH) measurementOrdered By: Salo Boles on 03-19-2024 Parathyroid Hormone (Intact) 204.1 pg/mL High 18.4-80.1 [facility] PTHINon 03-19-2024 PTH 204.1 pg/mL High 18.4-80.1 [facility] Comment on above: Performed By: #### B TSPAT, L500.4050, L501.9520, L100.0100, L506.1001 #### [facility] [address] [place], [place], [id number] Serum or plasma calcium leta urement (mass/volume)Ordered By: Salo Boles on 03-19-2024 Calcium [Mass/Vol] 11.9 mg/dL High 8.5-10.1 [facility] Serum or plasma thyroperoxid ase antibody assay (units/volume)Ordered By: Salo Boles on 03-19-2024 TPO Ab Qn [IU]/mL 0- [facility] Comment on above: Performed at: [facility] [id number] [place], [place] [id number] Director: Kyaw Bowie PhD, Phone: [phone] TPO Ab QnOrdered By: Salo lowe on 03-19-2024 Thyroid Peroxidase Antibodies < 9 IU/mL - [facility] Comment on above: Performed at: [facility] [place] [id number] Director: Kyaw Bowie PhD, Phone: [phone] Vitamin D,25 Hydroxyon 03-19 Vitamin D 25-OH 32.7 ng/mL Normal [facility] Comment on above: Result Comment: Magdalena min D 25(OH) Status Range Deficiency <20 ng/mL (50nmol/L) Insufficiency 20 - 30 ng/mL (50 - 75 nmol/L) Sufficiency 30 - 100 ng/mL (75 - 250 nmol/L) Toxicity >100 ng/mL (>250 nmol/L) Performed By: #### B TSPAT, L500.4050, L501.9520, L100.0100, L506.1001 #### [facility] [address] [place], [place], [id number] Thyroid Stim Hormone (TSH)on 01-08-2024 TSH 2.900 uIU/mL Normal 0.358-3.740 [facility] Comment on above: Performed By: #### L 501.9520 #### [facility] [address] [place], [address] Radiologic Technology Program Director Office Visit Reporton 12-29-2023 Radiologic Technology Program Director Office Visit Report [facility] [address], [address] [place] [address] OFFICE VISIT Date of Service: 12/29/23 MR#: [id number] Acct: [id number] Name: SILKE LOPEZ Rep #: [id number] : 1965 Provider: Dr. So Harrington, Age/Sex: 58/F Location: [facility] Status: Signed Intake Vital Signs 11/28/23 10:36 12/29/23 10:59 12/29/23 11:00 Height 5 ft 3 in 5 ft 3 in 5 ft 3 in Weight: 271 lb 2 oz 262 lb 6 oz BMI 48.0 46.5 BP 122/78 H 109/71 Intake Visit Reasons: discuss surgery Vascular Nurse Required: No Is patient in pain?: No [...] Weight Infant Gen Labor Lgth Anesthesia Del [facility] Provider FOB Unknown Spencer Unknown Ngozi Unknown [...] schedule robotic hysterectomy. 12/29/23 1330 Date So [facility] Signature: Date (if applicable) CC: Normal [facility] PTH, INTACT AND CALCIUMon Calcium [Mass/Vol] 11.2 mg/dL High 8.6-10.4 [facility] Comment on above: Order Comment: FASTI NG:YES FASTING: YES Performed By: #### 8 837, 56798 #### [facility] [address], [address] [place] [phone] Dragger Out: Nabil Montaño MD PARATHYROID HORMONE, INTACT 155 [...] Low Normal High Performed By: #### 8 837, 11230 #### [facility] [address], [address] [place] [phone] Dragger Out: Nabil Montaño MD VITAMIN D,25-OH,TOTAL,IAon 0 11-17-2023 [...] D, (D2,D3), LC/MS/MS is recommended: order code 88619 (patients >2yrs). See Note 1 Note 1 For additional information, please refer to http://education.[employer]/faq/BSM965 (This link is being provided for informational/ educational purposes only.) Performed By: #### 8 837, 77446 #### [facility] [place] [address] Dragger Out: Nabil Montaño MD CBC (INCLUDES DIFF/PLT)on Basophils (Bld) [#/Vol] 0.04 10*3/uL Normal 0-200 [facility] Comment on above: Performed By: #### 6 399, 20594, 496, 7600 #### [facility] [place] [address] Dragger Out: Nabil Montaño MD Basophils/100 WBC (Bld) 0.8 % Normal [facility] Comment on above: Performed By: #### 6 399, 16243, 496, 7600 #### [facility] [place] [address] Dragger Out: Nabil Montaño MD Eosinophils (Bld) [#/Vol] 0.1 10*3/uL Normal 15-500 [facility] Comment on above: Performed By: #### 6 399, 52984, 496, 7600 #### [facility] [place] [address] Dragger Out: Nabil Montaño MD Eosinophils/100 WBC (Bld) 2.0 % Normal [facility] Comment on above: Performed By: #### 6 399, 40552, 496, 7600 #### [facility] [place] [address] Dragger Out: Nabil Montaño MD Erythrocyte distribution width (RBC) [Ratio] 13.7 % Normal 11.0-15.0 [facility] Comment on above: Performed By: #### 6 399, 40947, 496, 7600 #### [facility] of [place] [address] Dragger Out: Nabil Montñao MD Hematocrit (Bld) [Volume fraction] 48.0 % High 35.0-45.0 [facility] Comment on above: Performed By: #### 6 399, 83693, 496, 7600 #### [facility] of [place] [address] Dragger Out: Nabil Montaño MD Hemoglobin (Bld) [Mass/Vol] 15.8 g/dL High 11.7-15.5 [facility] Comment on above: Performed By: #### 6 399, 17286, 496, 7600 #### [facility] of [place] [address] Dragger Out: Nabil Montaño MD Lymphocytes (Bld) [#/Vol] 1.48 10*3/uL Normal 850-3900 [facility] Comment on above: Performed By: #### 6 399, 16690, 496, 7600 #### [facility] of [place] [address] Dragger Out: Nabil Montaño MD Lymphocytes/100 WBC (Bld) 29.6 % Normal [facility] Comment on above: Performed By: #### 6 399, 82985, 496, 7600 #### [facility] of [place] [address] Dragger Out: Nabil Montaño MD MCH (RBC) [Entitic mass] 31.5 pg Normal 27.0-33.0 [facility] Comment on above: Performed By: #### 6 399, 07333, 496, 7600 #### [facility] of [place] [address] Dragger Out: Nabil Montaño MD MCHC (RBC) [Mass/Vol] 32.9 g/dL Normal 32.0-36.[address] [facility] Comment on above: Performed By: #### 6 399, 30363, 496, 7600 #### [facility] [place] [address] Dragger Out: Nabil Montaño MD MCV (RBC) [Entitic vol] 95.6 fL Normal 80.0-100.0 [facility] Comment on above: Performed By: #### 6 399, 68558, 496, 7600 #### [facility] [place] [address] Dragger Out: Nabil Montaño MD Monocytes (Bld) [#/Vol] 0.35 10*3/uL Normal 200-950 [facility] Comment on above: Performed By: #### 6 399, 12317, 496, 7600 #### [facility] [place] [address] Dragger Out: Nabil Montaño MD Monocytes/100 WBC (Bld) 7.0 % Normal [facility] Comment on above: Performed By: #### 6 399, 63847, 496, 7600 #### [facility] [place] [address] Dragger Out: Nabil Montaño MD Neutrophils (Bld) [#/Vol] 3.03 10*3/uL Normal 5428-1239 [facility] Comment on above: Performed By: #### 6 399, 11884, 496, 7600 #### [facility] [place] [address] Dragger Out: Nabil Montaño MD Neutrophils/100 WBC (Bld) 60.6 % Normal [facility] Comment on above: Performed By: #### 6 399, 51716, 496, 7600 #### [facility] [place] [address] Dragger Out: Nabil Montaño MD Platelet mean volume (Bld) [Entitic vol] 10.7 fL Normal 7.5-12.5 [facility] Comment on above: Performed By: #### 6 399, 09332, 496, 7600 #### [facility] of [address], [address] [place] [address] Dragger Out: Nabil Montaño MD Platelets (Bld) [#/Vol] 276 10*3/uL Normal 140-400 [facility] Comment on above: Performed By: #### 6 399, 31696, 496, 7600 #### [facility] of [address], [address] [place] [address] Dragger Out: Nabil Montaño MD RBC (Bld) [#/Vol] 5.02 10*6/uL Normal 3.80-5.10 [facility] Comment on above: Performed By: #### 6 399, 27482, 496, 7600 #### [facility] of [address], [address] [place] [address] Dragger Out: Nabil Montaño MD WBC (Bld) [#/Vol] 5.0 10*3/uL Normal 3.8-10.8 [facility] Comment on above: Performed By: #### 6 399, 07331, 496, 7600 #### [facility] of [place] [address] Dragger Out: Nabil Montaño MD [facility] 10-27-2023 Albumin [Mass/Vol] 4.3 g/dL Normal 3.6-5.1 [facility] Comment on above: Performed By: #### 6 399, 55793, 496, 7600 #### [facility] [place] [address] Dragger Out: Nabil Montaño MD Albumin/Globulin [Mass ratio] 1.5 {ratio} Normal 1.0-2.5 [facility] Comment on above: Performed By: #### 6 399, 23701, 496, 7600 #### [facility] of [place] [address] Dragger Out: Nabil Montaño MD ALP [Catalytic activity/Vol] 66 U/L Normal 37-153 [facility] Comment on above: Performed By: #### 6 399, 00710, 496, 7600 #### [facility] of [address], [address] [place] [address] Dragger Out: Nabil Montaño MD ALT [Catalytic activity/Vol] 21 U/L Normal 6-29 [facility] Comment on above: Performed By: #### 6 399, 86991, 496, 7600 #### [facility] of [address], [address] [place] [address] Dragger Out: Nabil Montaño MD AST [Catalytic activity/Vol] 17 U/L Normal 10-35 [facility] Comment on above: Performed By: #### 6 399, 69003, 496, 7600 #### [facility] of [place] [address] Dragger Out: Nabil Montaño MD Bilirubin [Mass/Vol] 0.8 mg/dL Normal 0.2-1.2 [facility] Comment on above: Performed By: #### 6 399, 46530, 496, 7600 #### [facility] [place] [address] Dragger Out: Nabil Montaño MD BUN/CREATININE RATIO SEE NOTE: Normal 6-22 [facility] Comment on above: Result Comment: Not Reported: BUN and Creatinine are within reference range. Performed By: #### 6 399, 74897, 496, 7600 #### [facility] of [address], [address] [place] [address] Dragger Out: Nabil Montaño MD Calcium [Mass/Vol] 11.3 mg/dL High 8.6-10.4 [facility] Comment on above: Performed By: #### 6 399, 61627, 496, 7600 #### [facility] [place] [address] Dragger Out: Nabil Montaño MD Chloride [Moles/Vol] 107 mmol/L Normal 98-110 [facility] Comment on above: Performed By: #### 6 399, 86243, 496, 7600 #### [facility] [place] [address] Dragger Out: Nabil Montaño MD CO2 [Moles/Vol] 25 mmol/L Normal 20-32 [facility] Comment on above: Performed By: #### 6 399, 97876, 496, 7600 #### [facility] [place] [address] Dragger Out: Nabil Montaño MD Creatinine [Mass/Vol] 0.89 mg/dL Normal 0.50-1.[address] [facility] Comment on above: Performed By: #### 6 399, 68072, 496, 7600 #### [facility] [place] [address] Dragger Out: Nabil Montaño MD GFR/1.73 sq M.predicted among non-blacks MDRD (S/P/Bld) [Vol rate/Area] 75 mL/min/{1.73_m2} Normal > OR = 60 [facility] Comment on above: Performed By: #### 6 399, 54908, 496, 7600 #### [facility] [place] [address] Dragger Out: Nabil Montaño MD Globulin (S) [Mass/Vol] 2.8 g/dL Normal 1.9-3.7 [facility] Comment on above: Performed By: #### 6 399, 99042, 496, 7600 #### [facility] [place] [address] Dragger Out: Nabil Montaño MD Glucose [Mass/Vol] 89 mg/dL Normal 65-99 [facility] Comment on above: Result Comment: Fasting reference interval Performed By: #### 6 399, 51818, 496, 7600 #### [facility] [place] [address] Dragger Out: Nabil Montaño MD Potassium [Moles/Vol] 4.8 mmol/L Normal 3.5-5.[address] [facility] Comment on above: Performed By: #### 6 399, 18502, 496, 7600 #### [facility] [address], [address] [place] [address] Dragger Out: Nabil Montaño MD Protein [Mass/Vol] 7.1 g/dL Normal 6.1-8.1 [facility] Comment on above: Performed By: #### 6 399, 15809, 496, 7600 #### [facility] [address], [address] [place] [address] Dragger Out: Nabil Montaño MD Sodium [Moles/Vol] 139 mmol/L Normal 135-146 [facility] Comment on above: Performed By: #### 6 399, 86722, 496, 7600 #### [facility] [place] [address] Dragger Out: Nabil Montaño MD Urea nitrogen [Mass/Vol] 25 mg/dL Normal 7-25 [facility] Comment on above: Performed By: #### 6 399, 81558, 496, 7600 #### [facility] [place] [address] Dragger Out: Nabil Montaño MD HEMOGLOBIN A1con 10-27-2023 HEMOGLOBIN A1c 5.8 % of total Hgb High <5.7 [facility] Comment on above: Result Comment: For [...] change in test platforms from the [employer] Specialist to the Ivis byron c503 may have shifted HbA1c results compared to historical results. Based on laboratory validation testing conducted at [facility], the Ivis platform relative to the [employer] [...] not recommended. Performed By: #### 6 399, 50831, 496, 7600 #### [facility] [address], [address] [place] [address] Dragger Out: Nabil Montaño MD HEPATITIS C AB W/REFL TO HCV RNA, [facility] HEPATITIS C ANTIBODY Non-Reactive Normal NON-REACTIVE [facility] Comment on above: Result Comment: HCV antibody was non-reactive. There is no laboratory evidence of HCV infection. In most cases, no further action is required. However, if recent HCV exposure is suspected, a test for HCV RNA (test code 32163) is suggested. For additional information please refer to http://education.[employer]/faq/PNU02u5 (This link is being provided for informational/ educational purposes only.) Performed By: #### 6 399, 20658, 496, 7600 #### [facility] [address], [address] [place] [address] Dragger Out: Nabil Montaño MD LIPID PANEL, [facility] 09-29 Cholesterol [Mass/Vol] 206 mg/dL High <200 [facility] Comment on above: Order Comment: FASTI NG:YES FASTING: YES Performed By: #### 6 399, 95466, 496, 7600 #### [facility] [address], [address] [place] [address] Dragger Out: Nabil Montaño MD Cholesterol in HDL [Mass/Vol] 33 mg/dL Low > OR = 50 [facility] Comment on above: Order Comment: FASTI NG:YES FASTING: YES Performed By: #### 6 399, 95091, 496, 7600 #### [facility] [address], [address] [place] [address] Dragger Out: Nabil Montaño MD Cholesterol in LDL [Mass/Vol] [...] Oscar SS et al. JOSE LUIS. 2013;310(19): 1470-4750 (http://education.[employer]/faq/XGW217) Performed By: #### 6 399, 18634, 496, 7600 #### [facility] [address], [address] [place] [address] Dragger Out: Nabil Montaño MD Cholesterol.total/Chol esterol in HDL [Mass ratio] 6.2 {ratio} High <5.0 [facility] Comment on above: Order Comment: FASTI NG:YES FASTING: YES Performed By: #### 6 399, 92993, 496, 7600 #### [facility] [address], [address] [place] [address] Dragger Out: Nabil Montaño MD NON HDL CHOLESTEROL 173 mg/dL (calc) High <130 [facility] Comment on above: Order Comment: FASTI NG:YES FASTING: YES Result Comment: For patients with diabetes plus 1 major ASCVD risk factor, treating to a non-HDL-C goal of <100 mg/dL (LDL-C of <70 mg/dL) is considered a therapeutic option. Performed By: #### 6 399, 74596, 496, 7600 #### [facility] [address], [address] [place] [address] Dragger Out: Nabil Montaño MD Triglyceride [Mass/Vol] 106 mg/dL Normal <150 [facility] Comment on above: Order Comment: FASTI NG:YES FASTING: YES Performed By: #### 6 399, 03044, 496, 7600 #### [facility] [address], [address] [place] [address] Dragger Out: Nabil Montaño MD 36on 09-12-2023 36 S: Pt called [facility] d/t Symptoms/Concerns: lump on stomach Provider: james daigle B: CAC RN attempted to call patient A No contact Pt last seen 02/27/2020 R: Left VM for pt to call back with any further questions or concerns. Reason for Disposition ? Message left on identified voicemail Protocols used: No Contact or Duplicate Contact [id number] Normal [facility] CR Chest PA/LATon 10-11-2018 CR Chest PA/LAT Patient Name: SILKE LOPEZ Diagnostic Radiology Exam Date/Time 10/11/2018 14:47:08 EDT Exam CR Chest PA/LAT Ordering Physician DO DAIGLE PAUL E. Accession Number [id number] CPT4 Codes 93705 () Reason For Exam . Report Indication: [...] Transcribed Date and Time: 10/11/2018 2:59 Normal [facility] XR CHEST STANDARD (2 VW)on 0 10-11-2018 Patient Name: SILKE LOPEZ ---Diagnostic Radiology--- Exam Date/Time 10/11/2018 14:47:08 EDT Exam CR Chest PA/LAT Ordering Physician DO DAIGLE PAUL E. Accession Number [id number] CPT4 Codes 71332 () Reason For Exam . Report Indication: [...] ANTHONY Transcribed Date and Time: 10/11/2018 2:59 [facility], [place] David, [facility] Incoming Radiology Results From [facility] - 10/11/2018 2:59 PM EDT Patient Name: SILKE LOPEZ ---Diagnostic Radiology--- Exam Date/Time 10/11/2018 14:47:08 EDT Exam CR Chest PA/LAT Ordering Physician DO DAIGLE PAUL E. Accession Number [id number] CPT4 Codes 16141 () Reason For Exam . Report Indication: [...] ANTHONY Transcribed Date and Time: 10/11/2018 2:59 [place], [place] VL Venous Duplex US Lower Ex t Lefton 04-06-2017 VL Venous Duplex US Lower Ext Left Patient Name: SILKE LOPEZ Ultrasound Exam Date/Time 04/06/2017 17:12:55 EST Exam VL Venous Duplex US Lower Ext Left Ordering Physician DO DAIGLE PAUL E. Accession Number [id number] CPT4 Codes 64579 () Reason For Exam Left leg pain Report [facility] --- Left Lower Extremity Venous Duplex Report Patient Name: Silke Lopez : 1965 (51yrs) Study Date: 04/06/2017 Age: 51 Account: [id number] Gender: F Loc: BP: Ordering: Eron Daigle Technologist: Ordering Physician: Eron Daigle Nut Packer: Yoana Florez RDMS T Interpreting Physician: Kyaw Delong MD --- Location: [facility] --- INDICATIONS: Pain in limb - left [...] performed. The images were obtained using a [employer] vascular ultrasound machine. --- VENOUS FLOW AND [...] --+ Electronically signed by: Kyaw Delong MD [id number] Final Dictated: 04/07/2017 2:14 pm Dictating Physician: KYAW DELONG Signed Date and Time: 04/07/2017 2:13 pm Signed by: KYAW DELONG [facility] Vital Signs Date Time Vital Sign Value Performing Clinician Gabyi bianca 12-05-2024 13:44-0400 Body height 160.02 cm Leigha SCHULTZC Work Phone: [facility] 12-05-2024 13:44-0400 Body mass index (BMI) [Ratio] 38.4 kg/m2 Leigha Wynn NP-C Work Phone: [facility] 12-05-2024 13:44-0400 Body temperature 97.2 [degF] Leigha Wynn NP-C Work Phone: [facility] 12-05-2024 13:44-0400 Body weight 98.42 kg Leigha Wynn NP-C Work Phone: [facility] 12-05-2024 13:44-0400 Diastolic blood pressure 57 mm[Hg] Leigha Wynn NP-C Work Phone: [facility] 12-05-2024 13:44-0400 Heart rate 58 /min Leigha Wynn [employer] 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 Phone: [facility] 12-05-2024 13:44-0400 Respiratory rate 17 /min Leigha Wynn [employer] 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 Phone: [facility] 12-05-2024 13:44-0400 SaO2% (BldA) [Mass fraction] 96 % Leigha Wynn [employer] 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 Phone: [facility] 12-05-2024 13:44-0400 Systolic blood pressure 81 mm[Hg] Leigha Wynn [employer] 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 Phone: [facility] 12-03-2024 11:18-0400 Body height 160.02 cm Leigha Wynn [employer] 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 Phone: [facility] 12-03-2024 11:17-0400 Body mass index (BMI) [Ratio] 38.4 kg/m2 Leigha Wynn [employer] 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 Phone: [facility] 12-03-2024 11:17-0400 Body weight 98.45 kg Leigha Wynn [employer] 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 Phone: [facility] 12-03-2024 11:17-0400 Diastolic blood pressure 66 mm[Hg] Leigha Wynn [employer] CONTROL 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 Phone: [facility] 12-03-2024 11:17-0400 Systolic blood pressure 90 mm[Hg] Leigha Wynn [employer] 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 Phone: [facility] 11-19-2024 18:19-0400 Body temperature 96.9 [degF] Leigha Wynn [employer] 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 Phone: [facility] 11-19-2024 18:19-0400 Diastolic blood pressure 59 mm[Hg] Leigha Wynn [employer] 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 Phone: [facility] 11-19-2024 18:19-0400 Heart rate 50 /min Leigha Wynn [employer] 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 Phone: [facility] 11-19-2024 18:19-0400 Respiratory rate 16 /min Leigha Wynn [employer] 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 Phone: [facility] 11-19-2024 18:19-0400 SaO2% (BldA) [Mass fraction] 100 % Leigha Wynn [employer] 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 Phone: [facility] 11-19-2024 18:19-0400 Systolic blood pressure 106 mm[Hg] Leigha Wynn [employer] 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 Phone: [facility] 11-19-2024 13:30-0400 Inhaled oxygen flow rate 4 L/min Leigha Wynn [employer] 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 Phone: [facility] 11-19-2024 08:44-0400 Body height 160.02 cm Leigha Wynn [employer] 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 Phone: [facility] 11-19-2024 08:44-0400 Body mass index (BMI) [Ratio] 38.6 kg/m2 Leigha Wynn [employer] 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 Phone: [facility] 11-19-2024 08:44-0400 Body weight 99 kg Leigha Wynn [employer] 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 Phone: [facility] 10-21-2024 10:09-0400 Body height 160.02 cm Leigha Wynn [employer] 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 Phone: [facility] 10-21-2024 10:09-0400 Body mass index (BMI) [Ratio] 38.6 kg/m2 Leigha Wynn [employer] 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 Phone: [facility] 10-21-2024 10:09-0400 Body weight 98.93 kg Leigha Wynn [employer] 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 Phone: [facility] 10-21-2024 10:09-0400 Diastolic blood pressure 54 mm[Hg] Leigha Wynn [employer] 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 Phone: [facility] 10-21-2024 10:09-0400 Systolic blood pressure 78 mm[Hg] Leigha Wynn [employer]OL 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 Phone: [facility] 10-12-2024 13:50-0400 Body temperature 98.6 [degF] Leigha Wynn [employer] 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 Phone: [facility] 10-12-2024 13:50-0400 Diastolic blood pressure 62 mm[Hg] Leigha Wynn [employer] CONTROL 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 Phone: [facility] 10-12-2024 13:50-0400 Heart rate 62 /min Leigha Wynn [employer] 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 Phone: [facility] 10-12-2024 13:50-0400 Respiratory rate 16 /min Leigha Wynn [employer] 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 Phone: [facility] 10-12-2024 13:50-0400 SaO2% (BldA) [Mass fraction] 100 % Leigha Wynn [employer] 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 Phone: [facility] 10-12-2024 13:50-0400 Systolic blood pressure 96 mm[Hg] Leigha Wynn [employer] 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 Phone: [facility] 10-12-2024 11:59-0400 Body mass index (BMI) [Ratio] 39.7 kg/m2 Leigha Wynn [employer] 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 Phone: [facility] 10-12-2024 11:48-0400 Body height 160.02 cm Leigha Wynn [employer] 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 Phone: [facility] 10-12-2024 11:48-0400 Body weight 101.85 kg Leigha Wynn [employer] 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 Phone: [facility] 10-11-2024 21:00-0400 Diastolic blood pressure 67 mm[Hg] Leigha Wynn [employer] 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 Phone: [facility] 10-11-2024 21:00-0400 Heart rate 48 /min Leigha Wynn [employer] 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 Phone: [facility] 10-11-2024 21:00-0400 Respiratory rate 18 /min Leigha Wynn [employer] 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 Phone: [facility] 10-11-2024 21:00-0400 SaO2% (BldA) [Mass fraction] 96 % Leigha Wynn [employer] 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 Phone: [facility] 10-11-2024 21:00-0400 Systolic blood pressure 107 mm[Hg] Leigha Wynn [employer] 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 Phone: [facility] 10-11-2024 19:30-0400 Body temperature 98.2 [degF] Leigha Wynn [employer] 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 Phone: [facility] 10-11-2024 17:16-0400 Body height 160.02 cm Leigha Wynn [employer] 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 Phone: [facility] 10-11-2024 17:16-0400 Body mass index (BMI) [Ratio] 39.4 kg/m2 Leigha Wynn [employer] 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 Phone: [facility] 10-11-2024 17:16-0400 Body weight 101.15 kg Leigha Wynn [employer] 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 Phone: [facility] 09-20-2024 15:54-0400 Body height 160.02 cm Leigha Wynn [employer] 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 Phone: [facility] 09-20-2024 15:52-0400 Body mass index (BMI) [Ratio] 39.8 kg/m2 Leigha Wynn [employer] 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 Phone: [facility] 09-20-2024 15:52-0400 Body weight 102.05 kg Leigha Wynn [employer] 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 Phone: [facility] 09-20-2024 15:52-0400 Diastolic blood pressure 58 mm[Hg] Leigha Wynn [employer] 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 Phone: [facility] 09-20-2024 15:52-0400 Systolic blood pressure 101 mm[Hg] Leigha Wynn [employer]OL 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 Phone: [facility] 06-04-2024 13:39-0400 Body temperature 98.4 [degF] Leigha Wynn [employer]OL 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 Phone: [facility] 06-04-2024 13:39-0400 Diastolic blood pressure 67 mm[Hg] Leigha Wynn [employer] CONTROL 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 Phone: [facility] 06-04-2024 13:39-0400 Heart rate 50 /min Leigha Wynn [employer] 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 Phone: [facility] 06-04-2024 13:39-0400 Respiratory rate 16 /min Leigha Wynn [employer] 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 Phone: [facility] 06-04-2024 13:39-0400 SaO2% (BldA) [Mass fraction] 97 % Leigha Wynn [employer] 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 Phone: [facility] 06-04-2024 13:39-0400 Systolic blood pressure 106 mm[Hg] Leigha Wynn [employer]OL 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 Phone: [facility] 06-04-2024 06:38-0400 Body height 160.02 cm Leigha Wynn [employer]OL 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 Phone: [facility] 06-04-2024 06:38-0400 Body mass index (BMI) [Ratio] 42.5 kg/m2 Leigha Wynn [employer] 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 Phone: [facility] 06-04-2024 06:38-0400 Body weight 109 kg Leigha Wynn [employer]OL 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 Phone: [facility] 05-01-2024 08:20-0500 Body height 160.02 cm Leigha Wynn [employer]OL 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 Phone: [facility] 05-01-2024 08:20-0500 Body mass index (BMI) [Ratio] 44.2 kg/m2 Leigha Wynn [employer] 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 Phone: [facility] 05-01-2024 08:20-0500 Body weight 113.39 kg Leigha Wynn [employer] 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 Phone: [facility] 05-01-2024 08:20-0500 Diastolic blood pressure 74 mm[Hg] Leigha Wynn [employer] CONTROL 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 Phone: [facility] 05-01-2024 08:20-0500 Heart rate 69 /min Leigha Wynn [employer] 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 Phone: [facility] 05-01-2024 08:20-0500 Respiratory rate 17 /min Leigha Wynn [employer] 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 Phone: [facility] 05-01-2024 08:20-0500 SaO2% (BldA) [Mass fraction] 100 % Leigha Wynn [employer] 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 Phone: [facility] 05-01-2024 08:20-0500 Systolic blood pressure 109 mm[Hg] Leigha Wynn [employer]OL 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 Phone: [facility] 03-19-2024 08:43-0500 Body mass index (BMI) [Ratio] 44.6 kg/m2 Leigha Wynn [employer] 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 Phone: [facility] 03-19-2024 08:43-0500 Body weight 114.36 kg Leigha Wynn [employer]OL 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 Phone: [facility] 03-19-2024 08:43-0500 Diastolic blood pressure 71 mm[Hg] Liegha Wynn PEST CONTROL 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 Phone: [facility] 03-19-2024 08:43-0500 Heart rate 62 /min Leigha Wynn [employer] 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 Phone: [facility] 03-19-2024 08:43-0500 SaO2% (BldA) [Mass fraction] 98 % Leigha Wynn [employer]OL 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 Phone: [facility] 03-19-2024 08:43-0500 Systolic blood pressure 109 mm[Hg] Leigha Wynn [employer] CONTROL 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 Phone: [facility] Encounters Encounter Date Encounter Type Care Provider Facility Start: 12-20-2024 ambulatory Errol Adams Facility: [facility] Start: 12-11-2024 [facility] Start: 12-05-2024 End: 12-05-[address] Errol Adams MD -[facility] Work Phone: Start: 12-05-2024 End: 12-05-2024 ambulatory Leigha Wynn [employer] 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 Phone: -[facility] Start: 12-03-2024 End: 12-03-[address] So Jamison DO -[facility] Work Phone: Start: 12-03-2024 End: 12-03-2024 ambulatory Leigha Wynn NP-C Work Phone: -[facility] Start: 11-19-2024 ambulatory Leigha Wynn NP Facili ty:[facility] Start: 11-19-2024 Non-patient / Non-visit Dr. Reyes Jamison DO -[facility] Start: 11-19-2024 End: 11-19-2024 Admission to same day surgery center Dr. So Jamison DO [facility] Start: 11-19-2024 End: 11-19-2024 ambulatory Leigha Wynn NP-C Work Phone: -[facility] Start: 10-21-2024 Encounter for other preprocedural examination So Yip [facility] Start: 10-21-2024 Patient encounter status Ric Wynn [employer]OL 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 Phone: [facility] Start: 10-21-2024 End: 10-21-[address] So Jamison DO -[facility] Work Phone: Start: 10-21-2024 End: 10-21-[address] So Jamison DO [facility] Start: 10-21-2024 End: 10-21-2024 ambulatory Leigha Wynn [employer] 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 Phone: -[facility] Start: 10-12-2024 Non-patient / Non-visit Dr. Latrice Rivers MD -[facility] Work Phone: Start: 10-12-2024 ambulatory Leigha Wynn [employer]OL 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 Facili ty:[facility] Start: 10-12-2024 Non-patient / Non-visit Dr. Don antonio MD -[facility] Start: 10-11-2024 End: 10-12-2024 ambulatory Leigha Wynn [employer] CONTROL 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 Facility:[facility] Start: 10-11-2024 End: 10-12-2024 Evaluation and management of inpatient Dr. Maverick Mitchell DO -[facility] Work Phone: Start: 10-11-2024 End: 10-12-2024 observation encounter Leigha Wynn [employer] 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 Phone: -[facility] Start: 09-20-2024 End: 09-20-[address] So Jamison DO -[facility] Work Phone: Start: 09-20-2024 End: 09-20-2024 ambulatory Leigha Wynn [employer] 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 Phone: -[facility] Start: 09-20-2024 End: 09-20-2024 ambulatory Leigha Wynn [employer] 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 Phone: -Laboratory Specimen Start: 09-20-2024 End: 09-20-[address] So Jamison DO -[facility] Spec[facility] Work Phone: Start: 09-20-2024 End: 09-20-2024 ambulatory Leigha Wynn [employer]OL 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 Facility:[facility] Start: 09-03-2024 End: 09-03-2024 ambulatory Leigha Wynn [employer] 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 Phone: -Laboratory Start: 09-03-2024 End: 09-03-2024 Patient encounter procedure Leigha Wynn [employer]OL 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-C -Laboratory Work Phone: Start: 09-03-2024 End: 09-03-2024 ambulatory Leigha Wynn [employer]OL 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 Facility:[facility] Start: 07-15-2024 Non-patient / Non-visit Dr. Purnima HAUSER -[facility] Start: 07-15-2024 End: 07-15-2024 ambulatory Leigha Kingsley [employer] 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 Phone: [facility] Work Phone: Start: 07-15-2024 End: 07-15-2024 Patient encounter procedure Leigha Wynn [employer]OL 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-C -Cardiovascular Services Work Phone: Start: 07-15-2024 End: 07-15-2024 ambulatory Leigha Kingsley [employer]OL 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 Facility:[facility] Start: 06-11-2024 End: 06-11-[address] Errol Adams MD -[facility] Work Phone: Start: 06-11-2024 End: 06-11-2024 ambulatory Leigah Kingsley [employer]OL 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 Phone: [facility] Work Phone: Start: 06-11-2024 End: 06-11-2024 ambulatory Leigha Wynn [employer]OL 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 Facility:[facility] Start: 06-04-2024 ambulatory Errol Adams Facility: [facility] Start: 06-04-2024 Non-patient / Non-visit Dr. Larissa Adams MD -[facility] Start: 06-04-2024 End: 06-04-2024 Admission to same day surgery center Dr. Errol Adams MD [facility] Start: 06-04-2024 End: 06-04-2024 ambulatory Leigha Wynn [employer]OL 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 Phone: [facility] Work Phone: Start: 05-23-2024 End: 05-23-2024 ambulatory Leigha Wynn [employer]OL 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 Facility:[facility] Start: 05-23-2024 End: 05-23-2024 Non-patient / Non-visit Dr. Maikol Sanchez MD -[facility] Work Phone: Start: 05-17-2024 End: 05-17-2024 ambulatory Leigha Wynn [employer] 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 Phone: [facility] Work Phone: Start: 05-17-2024 End: 05-17-2024 Patient encounter procedure Leigha Wynn [employer] 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-C -Laboratory Work Phone: Start: 05-17-2024 End: 05-17-2024 ambulatory Leigha Wynn [employer]OL 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 Facility:[facility] Start: 05-01-2024 End: 05-01-[address] Errol Adams MD -[facility] Work Phone: Start: 05-01-2024 End: 05-01-2024 ambulatory Errol Adams Facility:[facility] Start: 04-18-2024 End: 04-18-[address] Salo Boles MD -Outpatient Bone Densitometry Work Phone: Start: 04-18-2024 End: 04-18-2024 ambulatory [facility] Facility:[facility] Start: 04-09-2024 End: 04-09-[address] Salo Boles MD -Nuclear Medicine, [facility] Work Phone: Start: 04-09-2024 End: 04-09-2024 ambulatory [facility] Facility:[facility] Start: 03-28-2024 End: 03-28-[address] Salo Boles MD -Ultrasound, [facility] Work Phone: Start: 03-28-2024 End: 03-28-2024 ambulatory Salo Ramana Facility:[facility] Start: 03-19-2024 End: 03-19-[address] Salo Boles MD -Laboratory Work Phone: Start: 03-19-2024 End: 03-19-[address] Salo Boles MD -[facility] Work Phone: Start: 03-19-2024 End: 03-19-2024 ambulatory [facility] Facility:[facility] Start: 03-19-2024 End: 03-19-2024 ambulatory [facility] Facility:[facility] Start: 01-08-2024 End: 01-08-2024 ambulatory Leigha Wynn NP Facility:[facility] Start: 12-29-2023 End: 12-29-2023 ambulatory Eron Daigle Facility:[facility] Start: 09-12-2023 End: 09-12-2023 [facility] Start: 09-12-2023 End: 09-12-2023 Patient encounter procedure [facility] Start: 10-11-2018 End: 10-11-2018 Subsequent hospital visit by physician Eron Daigle Work Phone: [facility] Comment on above: Cough Start: 04-07-2017 Evaluation and management of inpatient [facility] Start: 04-06-2017 Ambulatory Eron Daigle [facility] Procedures Date Procedure Procedure Detail Performing Clinician Start: 11-19-2024 Total abdominal hyst erectomy with bilateral salpingo-oophorectomy Leigha Wynn NP-C Work Phone: Start: 2024 Vitamin D, 25-hydrox y measurement Leigha SCHULTZC Work Phone: Comment on above: Vitamin D StatusDefi ciency: <20 ng/mL (50nmol/L)Insufficiency: 20-30 ng/mL (50-75 nmol/L)Sufficiency: 30-100 ng/mL (75-250 nmol/L)Toxicity: >100 ng/mL (>250 nmol/L) Start: 10-12-2024 MRI of brain without contrast Leigha SCHULTZC Work Phone: Start: 10-12-2024 Methadone measurement, urine Leigha SCHULTZC Work Phone: Start: 10-11-2024 CT angiography of he ad and neck Leigha Wynn NP-C Work Phone: Start: 10-11-2024 Estimated creatinine clearance Leigha Wynn NP-C Work Phone: Start: 10-11-2024 CT of head without contrast Leigha SCHULTZC Work Phone: Start: 09-03-2024 Vitamin D, 25-hydrox y measurement Leigha Wynn NP-C Work Phone: Comment on above: Vitamin D StatusDefi ciency: <20 ng/mL (50nmol/L)Insufficiency: 20-30 ng/mL (50-75 nmol/L)Sufficiency: 30-100 ng/mL (75-250 nmol/L)Toxicity: >100 ng/mL (>250 nmol/L) Start: 06-11-2024 Vitamin D, 25-hydrox y measurement Leigha Wynn NP-C Work Phone: Comment on above: Vitamin D StatusDefi ciency: <20 ng/mL (50nmol/L)Insufficiency: 20-30 ng/mL (50-75 nmol/L)Sufficiency: 30-100 ng/mL (75-250 nmol/L)Toxicity: >100 ng/mL (>250 nmol/L) Start: 06-11-2024 Parathyroid hormone measurement Leigha Wynn NP-C Work Phone: Start: 06-04-2024 Parathyroid hormone measurement Leigha Wynn NP-C Work Phone: Start: 06-04-2024 Parathyroidectomy Ric Wynn [employer]OL 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 Phone: Start: 05-17-2024 Hepatitis C antibody measurement Leigha Wynn NP-C Work Phone: Comment on above: Reactive: Presumptiv e evidence of antibodies to HCV. Follow CDC recommendations for supplemental testing.Non-Reactive: Antibodies to HCV were not detected; does not exclude the possibility of exposure to HCVReactive Results are presumptive evidence of antibodies to HCV. Follow CDC recommendations for supplemental testing.Order confirmation testing: HCV Quant by PCR testing - HCVPCR #[id number] Non Reactive: < 0.8 Equivocal: >/= 0.8 to < 1.0 Reactive: >/= 1.0The CDC requires that a reactive/equivocal HCV antibody result be sent out for confirmation. HCV Quant by PCR testing. Start: 05-17-2024 Parathyroid hormone measurement Leigha Wynn [employer]OL 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 Phone: Start: 05-17-2024 Vitamin D, 25-hydrox y measurement Leigha Wynn [employer]OL 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 Phone: Comment on above: Vitamin D StatusDefi ciency: <20 ng/mL (50nmol/L)Insufficiency: 20-30 ng/mL (50-75 nmol/L)Sufficiency: 30-100 ng/mL (75-250 nmol/L)Toxicity: >100 ng/mL (>250 nmol/L) Start: 04-18-2024 Dual energy X-ray absorptiometry Leigha Wynn NP-C Work Phone: Start: 04-09-2024 Radioisotope scan of parathyroid Leigha Wynn [employer] 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 Phone: Start: 03-28-2024 US scan of thyroid Jerel 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 [employer] 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 Phone: Start: 03-19-2024 Parathyroid hormone measurement Leigha Wynn [employer] 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 Phone: Start: 03-19-2024 Vitamin D, 25-hydrox y measurement Leigha Wynn [employer] 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 Phone: Comment on above: Vitamin D 25(OH) Sta tus Range Deficiency <20 ng/mL (50nmol/L) Insufficiency 20 - 30 ng/mL (50 - 75 nmol/L) Sufficiency 30 - 100 ng/mL (75 - 250 nmol/L) Toxicity >100 ng/mL (>250 nmol/L) Start: 10-11-2018 Radiologic exam chest 2 views Eron Daigle Work Phone: Plan of Treatment Date Care Activity Detail Author Start: 11-19-2024 Anesthesia intraperitoneal lower abd w/laps nos ANESTH SURG LOWER ABDOMEN [facility] Start: 11-19-2024 Laps total hysterect 250 gm/< w/rmvl tube/ovary TLH W/T/O 250 G OR LESS [facility] Start: 11-19-2024 Repair rectocele separate procedure REPAIR OF RECTOCELE [facility] Start: 11-19-2024 Patient discharge [facility] Start: 11-19-2024 Ambulation without limitation [facility] Start: 11-19-2024 Medical regimen orders management [facility] Start: 11-19-2024 Medication education [facility] Start: 11-19-2024 Taking patient vital signs [facility] Start: 11-19-2024 Vital signs measurements [facility] Start: 11-19-2024 [facility] Start: 10-12-2024 Patient discharge [facility] Start: 10-11-2024 Application of intermittent pneumatic compression device [facility] Start: 10-11-2024 Following clinical pathway protocol [facility] Start: 10-11-2024 Aspiration precautions [facility] Start: 10-11-2024 Cardiac monitoring [facility] Start: 10-11-2024 Catheterization of vein [facility] Start: 10-11-2024 Consultation [facility] Start: 10-11-2024 Continuous pulse oximetry [facility] Start: 10-11-2024 Elevation of head of bed [facility] Start: 10-11-2024 Exercises [facility] Start: 10-11-2024 Notification of physician [facility] Start: 10-11-2024 Oxygen therapy [facility] Start: 10-11-2024 Patient referral to dietitian [facility] Start: 10-11-2024 Referral for physical therapy [facility] Start: 10-11-2024 Referral to occupational therapist [facility] Start: 10-11-2024 Referral to service [facility] Start: 10-11-2024 Speech therapy assessment [facility] Start: 10-11-2024 Telemedicine consultation with patient [facility] Start: 10-11-2024 Tobacco use cessation education [facility] Start: 10-11-2024 End: 10-11-2024 [facility] Start: 10-11-2024 Vital signs measurements [facility] Start: 10-11-2024 MRI of brain without contrast Brain without Contrast [facility] Start: 10-11-2024 Thyroid stimulating hormone measurement [facility] Start: 10-11-2024 Admission procedure [facility] Start: 10-11-2024 Hospital admission, emergency, from emergency room, medical nature [facility] Start: 10-11-2024 End: 10-11-2024 [facility] Start: 10-11-2024 Consultation [facility] Start: 10-11-2024 [facility] Start: 06-04-2024 Anes esoph thyrd larynx trach & lymph neck 1yr ANESTH NECK ORGAN 1YR/> [facility] Start: 06-04-2024 Parathyroidectomy/explorat ion parathyroids EXPLORE PARATHYROID GLANDS [facility] Start: 06-04-2024 End: 06-04-2024 Parathyroid hormone measurement [facility] Start: 06-04-2024 Patient discharge [facility] Start: 10-02-2021 Colon cancer screen colonoscopy Colon cancer screen colonoscopy [place], [place] Start: 12-12-2018 End: 12-12-2018 Office Visit 12/12/2018 Office Visit Dermatology Faustina Pat, BRIDGE/STRUCTURE INSPECTION TEAM LEADER - LABORER MINE [address] [facility] [address] [place] [address] [phone] [facility] Start: 10-28-2018 Influenza vaccination Flu vaccine (#1) [place], [place] Start: 02-01-2018 Breast cancer screen Breast cancer screen [place], [place] Start: 2014 Shingles Vaccine (1 of 2) Shingles Vaccine (1 of 2) [place] Start: 2004 Diabetes screen Diabetes screen [place] Start: 2004 Lipid screen Lipid [place] Start: 02-28-1997 DTaP/Tdap/Td vaccine (1 - Tdap) DTaP/Tdap/Td vaccine (1 - Tdap) [place] Start: 1985 Cervical cancer screen Cervical cancer screen [place] Start: 11-13-1979 HIV screen HIV screen [place], [place] Start: 1964 Hepatitis C screen Hepatitis C screen [place] Amphetamines [Presen ce] in Urine by Screen method >1000 ng/mL [facility] Benzodiazepine measurement, urine [facility] CBC W Auto Different ial panel - Blood [facility] Cocaine measurement, urine [facility] Comprehensive metabo lic 1999 panel - Serum or Plasma [facility] CT Abdomen and Pelvi s W contrast IV [facility] Ethanol [Mass/volume ] in Serum or Plasma [facility] fentaNYL [Presence] in Urine by Screen method [facility] Hemoglobin A1c/Hemoglobin.total in Blood [facility] Methadone measuremen t, urine [facility] Patient referral [facility] Work Phone: Phencyclidine [Prese nce] in Urine [facility] Thyroid stimulating hormone measurement [facility] Troponin T.cardiac [Mass/volume] in Serum or Plasma by High sensitivity method [facility] Urine cannabinoid measurement [facility] Urine opiate measurement [facility] Vitamin D, 25-hydrox y measurement [facility] Immunizations Immunization Date Immunization Notes [facility]1997 tetanus and diphther ia toxoids, not adsorbed, for adult use Leigha Richmond RN [facility] Payers Date Payer Category Payer Unknown 2024 Unknown [id number] 2023 Self-pay 2023 Unknown [id number] 2014 Unknown [employer] [address] xxxxxxxxxxxx 2014-Present [phone] [address] [place] [address] xxxxxxxxxxxx [id number] 2004 Unknown [id number] Unknown [id number] .[id number] Unknown [id number] .1.685526.3.579.2.462 Unknown [id number] .1.937626.3.579.2.462 Unknown [id number] 2.16.840.1.853700.3.579.2.462 Unknown [id number] 2.16.840.1.232267.3.579.2.462 Unknown [id number] 2.16.840.1.234490.3.579.2.462 Unknown [id number] 2.16.840.1.965386.3.579.2.462 Unknown [id number] 2.16.840.1.628786.3.579.2.462 Unknown [id number] 2.16.840.1.621182.3.579.2.462 Unknown [id number] 2.840.1.047730.3.579.2.462 Unknown [id number] 2.840.1.256343.3.579.2.462 Unknown [id number] 2.840.1.287143.3.579.2.462 Unknown [id number] 2.840.1.173119.3.579.2.462 Unknown [id number] 2.16.840.1.410341.3.579.2.462 Unknown [id number] 2.16840.1.581866.3.579.2.462 Unknown [id number] 2.16840.1.716513.3.579.2.462 Unknown [id number] 2.840.1.145652.3.579.2.462 Unknown [id number] 2.16.840.1.283974.3.579.2.462 Unknown [id number] 2.16.840.1.157750.3.579.2.462 Unknown [id number] 2.16.840.1.254680.3.579.2.462 Unknown [id number] 2.16.840.1.000993.3.579.2.462 Unknown [id number] 2.16840.1.490139.3.579.2.462 Unknown [id number] 2.16.840.1.965583.3.579.2.462 Unknown [id number] 2.16.840.1.907920.3.579.2.462 Unknown [id number] 2.16.840.1.821546.3.579.2.462 Unknown [id number] 2.16.840.1.071060.3.579.2.462 Unknown [id number] 2.16.840.1.194577.3.579.2.462 Unknown [id number] 2.16.840.1.975470.3.579.2.462 Unknown [id number] 2.16.840.1.776969.3.579.2.462 Social History Date Type Detail Facility Start: 10-10-2018 End: 11-05-2024 Tobacco smoking status NHIS Never smoker [facility] Start: 10-10-2018 Alcohol intake Yes [facility] Start: 06-25-2018 History SDOH Alcohol Frequency 2 [place] Start: 06-25-2018 History SDOH Alcohol Std Drinks 1 [place] Start: 06-25-2018 History SDOH Social Connections [facility] [place] Start: 06-25-2018 History SDOH Social Connections Living [address] [place] [address] Start: 06-25-2018 History SDOH Financial 4 [place], [place] Start: 1965 Sex Assigned At Not on file M [place] Start: 02-27-2020 Alcoholic beverage intake Current drinker of alcohol (finding) [facility] Start: 02-27-2020 Alcoholic beverage intake [facility] Start: 03-30-2019 Non-smoker Non-smoker [facility] Start: 05-24-2024 End: 06-13-2024 Sex Female (finding) [facility] Start: 1965 Sex Assigned At Female W [facility] NEGATED: Highlighted row Not [facility] Medical Equipment Procedure Code Equipment Code Equipment Origin al Text Equipment Identifier Dates Robot-assisted total abdominal hysterectomy with bilateral salpingo-oophorectomy (JULAINA Collagen haemostatic agent, non-antimicrobial ()[id number] FDA Start: 11-19-2024 Parathyroidectomy Plant polysacc haride haemostatic agent, bioabsorbable ()[id number] FDA Start: 06-04-2024 Parathyroidectomy Ligation clip, metallic ()[id number] FDA Start: 06-04-2024 Goals Date Patient Goal Desired Activity /State Functional Status Date Assessment Result Facility 10-12-2024 Functional status Ambulates [facility] Work Phone: Mental Status Date Assessment Result Facility 11-19-2024 Cognitive function Voice/Name [facility] Work Phone: 10-12-2024 Cognitive function Voice/Name [facility] Work Phone: 10-11-2024 Cognitive function Level Of Cons ciousness Awake;Alert;Appropriate;Follow s Commands [facility] Work Phone: 06-04-2024 Cognitive function Level Of Cons ciousness Awake;Drowsy [facility] Work Phone: 06-04-2024 Cognitive function Voice/Name [facility] Work Phone: Clinical Notes 09-12-2023 to 12-05-2024 Note Date & Type Note Facility 12-05-2024 Progress note [facility] 12-05-2024 Progress note Note Date/Time December 05, 2024 2:17pm [facility] [address] [place] [address] OFFICE VISIT Date of Service: 12/05/24 MR#: [id number] Acct: [id number] Name: SILKE LOPEZ Rep #: [id number] : 1965 Provider: Dr. Doyle Adams MD Age/Sex: 59/F Location: [facility] Status: Signed with Addenda ADDENDUM by Dr. Errol Adams MD on 12/05/24 at 1606 Intake Chief Complaint: hernia Allergies aspirin (ASA) Allergy (Intermediate, Verified 12/05/24 13:46) Swelling Iodinated Contrast Media (contrast dye - iodinated) Allergy (Mild, Verified 12/05/24 13:46) Hives levofloxacin (From Levaquin) Allergy (Verified 12/05/24 13:46) Other naproxen Allergy (Verified 12/05/24 13:46) Other Penicillins Allergy (Verified 12/05/24 13:46) Other Medications ?Medication ?Instructions ?Recorded ?Confirmed ?Type glucosamine HCl 500 mg tablet 500 mg PO QDAY 09/20/24 12/05/24 History ascorbic acid (vitamin C) 500 mg 500 mg PO DAILY vitam in 10/11/24 12/05/24 History chewable tablet (Acerola C) zinc 25 mg tablet 25 mg PO DAILY 11/19/2411/21 History cholecalciferol (vitamin D3) 50 50 mcg PO QDAY 5 12/05/24 History mcg (2,000 unit) capsule Assessment and Plan Assessment and Plan (1) Ventral hernia without obstruction or gangrene: Status: Acute Comment: Patient is 59-year-old female who makes surgical consultation related to newly diagnosed ventral hernia. Based on patient's history it is likely she has had this hernia for many years but attributed to alternative causes. 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 Unfortunately during exam patient's habitus and intolerance of exam limit my ability to fully appreciate the size of the hernia. It does appear to be a large umbilical hernia with soft contents. Overall hernia sac would be estimated approximately 12 x 15 cm. I informed patient and her , however, that the hernia repair is more dependent on the diameter of the hernia neck. In order to determine this information I am requesting CT of the abdomen and pelvis with p.o. and IV contrast. Patient has a history of allergic reaction to iodinated contrast media, but also has been successfully premedicated without subsequent reaction. I have requested a similar course to be taken in this instance. Additionally, I suggested that above a certain size I would recommend she see a hernia specialist for possible component separation,but would not be able to tell her until CT images been completed. Lastly, I reiterated the request from FASTENER SEWING MACHINE OPERATOR that patient follow-up with her PCP regardingher new bradycardia and relative hypotension (albeit asymptomatic). We will initiate communication based on today's vital signs. At the conclusion of today's visit I provided red flag warning signs that patient and her canpay attention for that should move them to immediate evaluation in the emergencydepartment, however, I suspect the risk for this is low given patient's history with the above for many years. Orders: Orders Abdomen/Pelvis WITH Contrast Today K46.9 - Unspecified abdominal hernia withoutobstruction or gangrene Plan Details Additional Comments: Note was completed with the assistance of AI technology and ambient listening. Patient provided their consent for use of this technology during the duration oftheir visit. Provider has reviewed dictation prior to incorporation within the electronic medical record. 12/05/24 1606 <Electronically signed by Errol Adams MD> Date _ Errol Adams MD cc: EDGAR Wynn ~* Signed Intake Vital Signs 12/03/24 11:18 12/05/24 13:44 Height 5 ft 3 in 5 ft 3 in Weight: 217 lb BMI 38.4 BP 81/57 L Blood Pressure Location Rt radial Position Sitting Respiration 17 Pulse 58 L Pulse Source Monitor Temp 97.2 F L Temp Source Temporal Pulse Oximetry (%) 96 Oxygen Delivery Method room air Intake Visit Reasons: HERNIA - SELF PAY Chief Complaint: hernia Accompanied by: Is patient in pain?: No Allergies aspirin (ASA) Allergy (Intermediate, Verified 12/05/24 13:46) Swelling Iodinated Contrast Media (contrast dye - iodinated) Allergy (Mild, Verified 12/05/24 13:46) Hives levofloxacin (From Levaquin) Allergy (Verified 12/05/24 13:46) Other naproxen Allergy (Verified 12/05/24 13:46) Other Penicillins Allergy (Verified 12/05/24 13:46) Other Medications ?Medication ?Instructions ?Recorded ?Confirmed ?Type glucosamine HCl 500 mg tablet 500 mg PO QDAY 09/20/24 12/05/24 History ascorbic acid (vitamin C) 500 mg 500 mg PO DAILY vitam in 10/11/24 12/05/24 Hist ory chewable tablet (Acerola C) zinc 25 mg tablet 25 mg PO DAILY 11/19/2411/21 History cholecalciferol (vitamin D3) 50 50 mcg PO QDAY 5 12/05/24 History mcg (2,000 unit) capsule PFSH Medical History High cholesterol History of echocardiogram Dehydration Wears glasses Arthritis Scoliosis Non-smoker History of edema Thyroid eye disease Primary hyperparathyroidism Hyperparathyroidism Screening for osteoporosis Surgical History H/O total hysterectomy with bilateral salpingo-oophorectomy (BSO) (11/19/24) S/P parathyroidectomy S/P D&C (status post dilation and curettage) [...] history: - Socrates- Retired HPI HPI HPI: The patient is a 59-year-old female presenting for evaluation of a recently diagnosed hernia. She is accompanied by her , who provides additional history. She is known to me for a history of parathyroidectomy undertaken May2024. The patient underwent a total hysterectomy by Dr. Hobbs 2 weeks ago on November 19, during which a large hernia was discovered. The surgeon noted that the intestines were protruding through the hernia and estimated it had likely been present for a long time. The patient was unaware of the hernia priorto surgery, though she reports a bulge in the area for years, which she attributed to her uterus. For over 10 years, she has experienced episodes 3-4 times per year of severe abdominal pain with diarrhea and occasional syncope during bowel movements. She also reports more frequent episodes of pain with diarrhea without syncope. She denies baseline diarrhea outside of these episodes, though she does report occasional constipation. She denies nausea or vomiting. She has a history of appendectomy in 1980 and 2 D&Cs. She denies any history of section, and all her children were delivered vaginally. She reports chronic lower extremity edema that has been stable for several yearsand is improved compared to prior severity. She denies any recent worsening of swelling and denies shortness of breath. She reports low heart rate and blood pressure readings noted several months prior to surgery, but she feels well without lightheadedness, dizziness, or fatigue. She is not taking any medications or supplements that would explain these findings. She is currently taking Cosamine, vitamin C, zinc, and vitamin D. She is allergic to iodine contrast, which causes hives, but she tolerated a CT scan with contrast in September with premedication. She is followed by Leigha Wynn at [facility] and plans to followup regarding her recent low blood pressure. ROS General General: Yes weight change; No appetite, fatigue, colon cancer, breast cancer or weakness Additional Details: Intentional wt loss. Using wt watchers HEENT HEENT: No difficulty swallowing, eye injury, eye surgery, swollen glands or hoarseness Endo Endocrine: Yes thyroid disease; No diabetes mellitus, thyroid cancer, Hair loss, heat intolerance or cold intolerance Skin Skin: No rash or changing moles Musc Musculoskeletal: Yes arthritis; No back problems, rheumatoid arthritis, gout or joint pain Cardio Cardiovascular: No murmur, pacemaker, heart disease, atrial fibrillation, high blood pressure, heart attack, heart stent, palpitations, shortness of breath with exertion or chest pain Psych Psychiatric: No depression, anxiety or hearing voices Resp Respiratory: No shortness of breath, No sleep apnea, Yes cough, No COPD, No asthma, No emphysema and No wheezing Gastro Gastrointestinal: Yes abdominal pain (states she still has pain at times from her hysterectomy), No nausea or vomiting, No diarrhea, No constipation, No bloodin stool, No acid reflux, No hemorrhoids, No [...] and No other Exam Const General: cooperative and anxious Resp Effort & Inspection: normal respiratory effort GI Other: Obese, well-healing port site incisions, periumbilical bulging consistent with ahernia. Patient has discomfort when traction is applied. I am unable to fully reduce the hernia contents to a fascial defect to even estimate the hernia size. Assessment and Plan Assessment and Plan (1) Ventral hernia without obstruction or gangrene: Status: Acute Comment: Patient is 59-year-old female who makes surgical consultation related to newly diagnosed ventral hernia. Based on patient's history it is likely she has had this hernia for many years but attributed to alternative causes. 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 Unfortunately during exam patient's habitus and intolerance of exam limit my ability to fully appreciate the size of the hernia. It does appear to be a large umbilical hernia with soft contents. Overall hernia sac would be estimated approximately 12 x 15 cm. I informed patient and her , however, that the hernia repair is more dependent on the diameter of the hernia neck. In order to determine this information I am requesting CT of the abdomen and pelvis with p.o. and IV contrast. Patient has a history of allergic reaction to iodinated contrast media, but also has been successfully premedicated without subsequent reaction. I have requested a similar course to be taken in this instance. Additionally, I suggested that above a certain size I would recommend she see a hernia specialist for possible component separation,but would not be able to tell her until CT images been completed. Lastly, I reiterated the request from FASTENER SEWING MACHINE OPERATOR that patient follow-up with her PCP regardingher new bradycardia and relative hypotension (albeit asymptomatic). We will initiate communication based on today's vital signs. At the conclusion of today's visit I provided red flag warning signs that patient and her canpay attention for that should move them to immediate evaluation in the emergencydepartment, however, I suspect the risk for this is low given patient's history with the above for many years. Plan: ? CT of the abdomen pelvis with p.o. and IV contrast. Patient did require premedication given history of intolerance of iodinated media ? Follow-up bradycardia/hypotension workup via PCP Orders: Orders Abdomen/Pelvis WITH Contrast Today K46.9 - Unspecified abdominal hernia withoutobstruction or gangrene Coding Level of Care Code Off vis,est,level 3 Diagnoses Ventral hernia without obstruction or gangrene K43.9 12/05/24 1555 <Electronically signed by Errol Adams MD> Date _ Errol Adams MD Cosigner Signature: Date (if applicable) CC: EDGAR Wynn ~ [facility] Work Phone: 1(725) 293-216809-23-2025 Consult note [facility] Medical Records Department [address] [place] [address] Anesthesia Postop Eval II 11/19/24 1509 MR#: [id number] Acct: [id number] Name: SILKE LOPEZ Rep #:[id number] : 1965 59 From: Virgie carbajal CRNA PCP: EDGAR Long Status:REG SD C Y Race: C Location: [place] [address] Anesthesia Postop Eval I Sum Postop Eval Completion status Anesthesia document: Postop Eval 1 completed: Yes Anesthesia Postop Eval I Summary Anesthesia Postop Eval I Summary: Anesthesia Postop Eval I: Assessment Summary Airway patent Yes 11/19/24 13:50 MANAGER [email or web address] Spontaneous unlabored Yes 11/19/24 13:50 MANAGER [email or web address] respirations Mental status Awake,Calm 11/19/24 13:50 MANAGER [email or web address] nausea No 11/19/24 13:50 MANAGER [email or web address] Vomiting No 11/19/24 13:50 MANAGER [email or web address] Anesthesia Postop Eval I: Fluid Summary Crystalloid volume administer 1,500 11/19/24 13:50 MANAGER [email or web address] (ml) Colloids volume administered ( ml) Blood Product volume administered (ml) Total IV fluid infused 1,500 11/19/24 13:50 MANAGER [email or web address] Anesthesia Postop Eval I: Summary Notes Anesthesia Complication No 11/19/24 13:50 MANAGER [email or web address] Anesthesia Complication Comment: Post-operative progress note Anesthesia: Postop Eval II Evaluation Mental status: Awake and Calm Pain Level: 2 nausea: No Vomiting: No Complications Anesthesia Complication: No 11/19/24 1509 kanaki MANAGER INTEGRATION> Date _ Virgie Parr MANAGER INTEGRATION Cosigner Signature: Date CC: ~ Signed [facility]09-23-2025 Consult note Author Virgie Parr [facility] Note Date/Time November 19, 2024 6:28pm [facility] Medical Records Department [address] [place] [address] Anesthesia Postop Eval II 11/19/24 1509 MR#: [id number] Acct: [id number] Name: SILKE LOPEZ Rep #:[id number] : 1965 59 From: Virgie carbajal CRNA PCP: Leigha Wynn NP-C Status:REG SD C Y Race: C Location: [place] [address] Anesthesia Postop Eval I Sum Postop Eval Completion status Anesthesia document: Postop Eval 1 completed: Yes Anesthesia Postop Eval I Summary Anesthesia Postop Eval I Summary: Anesthesia Postop Eval I: Assessment Summary Airway patent Yes 11/19/24 13:50 MANAGER [email or web address] Spontaneous unlabored Yes 11/19/24 13:50 MANAGER [email or web address] respirations Mental status Awake,Calm 11/19/24 13:50 MANAGER [email or web address] nausea No 11/19/24 13:50 MANAGER [email or web address].[email or web address] Vomiting No 11/19/24 13:50 MANAGER [email or web address].[email or web address] Anesthesia Postop Eval I: Fluid Summary Crystalloid volume administer 1,500 11/19/24 13:50 MANAGER [email or web address].[email or web address] (ml) Colloids volume administered ( ml) Blood Product volume administered (ml) Total IV fluid infused 1,500 11/19/24 13:50 MANAGER [email or web address].[email or web address] Anesthesia Postop Eval I: Summary Notes Anesthesia Complication No 11/19/24 13:50 MANAGER [email or web address].JBLOU Anesthesia Complication Comment: Post-operative progress note Anesthesia: Postop Eval II Evaluation Mental status: Awake and Calm Pain Level: 2 nausea: No Vomiting: No Complications Anesthesia Complication: No 11/19/24 1509 <Electronically signed by Virgie sheets MANAGER INTEGRATION> Date _ Virgie Parr MANAGER INTEGRATION Cosigner Signature: Date CC: ~ Signed [facility] Work Phone: 1(767) 339-710509-23-2025 Consult note Author Victorino Elias [facility] Note Date/Time November 19, 2024 1:50pm [facility] Medical Records Department [address] [place] [address] Anesthesia Postop Eval I 11/19/24 1349 MR#: [id number] Acct: [id number] Name: SILKE LOPEZ Rep #:[id number] : 1965 59 From: Victorino ZAVALA PCP: EDGAR Long Status:REG SD C Y Race: C Location: [place] [address] Anesthesia: Postop Eval I Current Vital Signs Temperature: 97.3 F Pulse Rate: 59 Blood Pressure: 110/54 Respiratory Rate: 16 Pulse Ox: 100 Oxygen Delivery Method: Room Air Assessment Airway patent: Yes Spontaneous unlabored respirations: Yes Mental status: Awake and Calm nausea: No Vomiting: No Anesthesia Complication: No Fluid Hydration Crystalloid volume administer (ml): 1,500 Total IV fluid infused: 1,500 Progress Note Anesthesia document: Postop Eval 1 completed: Yes 11/19/24 1350 <Electronically signed by Victorino Elias CRNA> Date _ Victorino Elias MANAGER INTEGRATION Cosigner Signature: Date CC: ~ Signed [facility] Work Phone: 1(705) 898-326009-23-2025 Discharge summary Author So Alonso [facility] Note Date/Time November 19, 2024 1:27pm [facility] Medical Records Department [address] [place] [address] Instructions for Home/Discharge Instructions 11/19/24 1003 MR#: [id number] Acct: [id number] Name: SILKE LOPEZ Rep #:[id number] : 1965 59 From: So Jamison DO PCP: EDGAR Long Status:REG SD C Discharge Instructions DC O2, CPAP, BIPAP needs Home O2 Discharge instructions: No Dressing / Incision Discharge Activity: May Shower May resume sexual activity in: 8 weeks Weight Bearing Status: Full weight bearing Lifting Restrictions: 10 pounds for 2 weeks Dressing / Incision Call your doctor if your incision/area has: Continuous Slow Oozing, Sudden Increased Bleeding, Increased Pain/ Swelling, Increased Redness and Foul Smelling Discharge Call your doctor if you observe: Fever of 101 or Higher, Using more than 1 pad per hour, Shortness of breath, Chest pain and Uncontrolled pain Suture Line Care: Avoid Pulling/Pushing and Avoid Pinching/Bending Remove Dressing in: 1 week (if present) Cleanse incision/area with: Soap & Water and Keep Dressing Clean & Dry Follow Up Care Please Follow Up With: So Jamison DO When: Call to make an appointment with your doctor for a postop visit in 2 and 6weeks Test Results: Test results from this visit will be discussed in further detail at your follow- up appointment, if applicable. Discharge Plan Admission Primary Reason for Your Visit: hysterectomy and rectocele repair Attending Provider: So Jamison Primary Care Provider: Leigha Wynn NP Consulting Providers: Amado Alvarez Instructions Print Language: Sudanese Discharge Orders/Prescriptions Prescriptions: New ibuprofen 800 mg tablet 800 mg PO Q8H PRN (Reason: pain) Qty: 30 0RF oxycodone-acetaminophen [Percocet] 5-325 mg tablet 1 tab PO Q4H PRN (Reason: pain) 7 Days Qty: 20 0RF Continued glucosamine HCl 500 mg tablet 500 mg PO QDAY Rx Instructions: administer with a meal ergocalciferol (vitamin D2) 1,250 mcg (50,000 unit) capsule 1,250 mcg PO QWEEK ascorbic acid (vitamin C) [Acerola C] 500 mg tablet,chewable 500 mg PO DAILY zinc 25 mg tablet 25 mg PO DAILY Referrals / Follow Up: Leigha Wynn NP, [employer] 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-C [Primary Care Provider, Family Practice] Disposition Disposition (needs filled in before D/C Order can be placed): Home, Self Care 11/19/24 1006<Electronically signed by So Jamison DO>So Jamison DO CC: EDGAR Wynn; Dr. Amado Alvarez MD ~ Signed ADDENDUM by Dr. So Jamison DO on 11/19/24 at 1327 take colace stool softeners daily for 1 month. use Miralax over the counter daily as needed to prevent excess straining when having a bowel movement. 11/19/24 1327<Electronically signed by So Jamison DO>So Jamison DO cc: EDGAR Wynn; Dr. Amado Alvarez MD ~* Signed [facility] Work Phone: 1(645) 497-983209-23-2025 Consult note [facility] Medical Records Department [address] [place] [address] Anesthesia Postop Eval I 11/19/24 1349 MR#: [id number] Acct: [id number] Name: SILKE LOPEZ Rep #:[id number] : 1965 59 From: Victorino ZAVALA PCP: MARION LongC Status:REG SD C Y Race: C Location: [place] [address] Anesthesia: Postop Eval I Current Vital Signs Temperature: 97.3 F Pulse Rate: 59 Blood Pressure: 110/54 Respiratory Rate: 16 Pulse Ox: 100 Oxygen Delivery Method: Room Air Assessment Airway patent: Yes Spontaneous unlabored respirations: Yes Mental status: Awake and Calm nausea: No Vomiting: No Anesthesia Complication: No Fluid Hydration Crystalloid volume administer (ml): 1,500 Total IV fluid infused: 1,500 Progress Note Anesthesia document: Postop Eval 1 completed: Yes 11/19/24 1350 MANAGER INTEGRATION> Date _ Victorino Elias MANAGER INTEGRATION Cosigner Signature: Date CC: ~ Signed [facility]09-23-2025 Discharge summary [facility] Medical Records Department [address] [facility] [place] [address] Instructions for Home/Discharge Instructions 11/19/24 1003 MR#: [id number] Acct: [id number] Name: SILKE LOPEZ Rep #:[id number] : 1965 59 From: So Jamison DO PCP: MARION LongC Status:REG SD C Discharge Instructions DC O2, CPAP, BIPAP needs Home O2 Discharge instructions: No Dressing / Incision Discharge Activity: May Shower May resume sexual activity in: 8 weeks Weight Bearing Status: Full weight bearing Lifting Restrictions: 10 pounds for 2 weeks Dressing / Incision Call your doctor if your incision/area has: Continuous Slow Oozing, Sudden Increased Bleeding, Increased Pain/ Swelling, Increased Redness and Foul Smelling Discharge Call your doctor if you observe: Fever of 101 or Higher, Using more than 1 pad per hour, Shortness of breath, Chest pain and Uncontrolled pain Suture Line Care: Avoid Pulling/Pushing and Avoid Pinching/Bending Remove Dressing in: 1 week (if present) Cleanse incision/area with: Soap & Water and Keep Dressing Clean & Dry Follow Up Care Please Follow Up With: So Jamison DO When: Call to make an appointment with your doctor for a postop visit in 2 and 6weeks Test Results: Test results from this visit will be discussed in further detail at your follow- up appointment, if applicable. Discharge Plan Admission Primary Reason for Your Visit: hysterectomy and rectocele repair Attending Provider: So Jamison Primary Care Provider: Leigha Wynn NP Consulting Providers: Amado Alvarez Instructions Print Language: Sudanese Discharge Orders/Prescriptions Prescriptions: New ibuprofen 800 mg tablet 800 mg PO Q8H PRN (Reason: pain) Qty: 30 0RF oxycodone-acetaminophen [Percocet] 5-325 mg tablet 1 tab PO Q4H PRN (Reason: pain) 7 Days Qty: 20 0RF Continued glucosamine HCl 500 mg tablet 500 mg PO QDAY Rx Instructions: administer with a meal ergocalciferol (vitamin D2) 1,250 mcg (50,000 unit) capsule 1,250 mcg PO QWEEK ascorbic acid (vitamin C) [Acerola C] 500 mg tablet,chewable 500 mg PO DAILY zinc 25 mg tablet 25 mg PO DAILY Referrals / Follow Up: Leigha Wynn NP, [employer] CONTROL 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-C [Primary Care Provider, Family Practice] Disposition Disposition (needs filled in before D/C Order can be placed): Home, Self Care 11/19/24 1006Jennifer Phi Alonso DO CC: EDGAR Wynn; Dr. Amado Alvarez MD ~ Signed ADDENDUM by Dr. So Jamison DO on 11/19/24 at 1327 take colace stool softeners daily for 1 month. use Miralax over the counter daily as needed to prevent excess straining when having a bowel movement. 11/19/24 1327So Jamison DO cc: EGDAR Wynn; Dr. Amado Alvarez MD ~* Signed [facility]09-23-2025 Procedure note [facility] Medical Records Department [address] [place] [address] Operative Report 11/19/24 1309 MR#: [id number] Acct: [id number] Name: SILKE LOPEZ Rep #:[id number] : 1965 59 From: So Jamison DO PCP: MARION LongC Status:REG SD C Location: [place] [address] Multi Select Codes Urinary/Genital Urinary/Genital CPT Codes: 36249 Cystoscopy, 23204 [place] [address] TLH+BS/O <250gr uterus Operative Report (Standard) Operative Information Date of Procedure: 11/19/24 Pre-Operative Diagnosis: enlarged uterus, postmenopausal bleeding, endometrial hyperplasia without atypia, rectocele Post-Operative Diagnosis: enlarged uterus, postmenopausal bleeding, endometrial hyperplasia withoutatypia, rectocele Surgery/Procedure Performed: total robotic hysterectomy, bilateral salpingo- oophorectomy, cystoscopy, rectocele repair learning officer: Yes Multimedia Services Manager: Alanis Luevano Tasks completed by first mate: Closing, Trocar and Retracting Type of Anesthesia: General RN Documented Start/Stop Times: Operation Date: 11/19/24 10:15 Case Time Into Pre-Op 11/19/24 08:19 Out of Pre-Op 11/19/24 10:24 Anesthesia Start 11/19/24 10:27 Into Room 11/19/24 10:27 Procedure Start 11/19/24 10:54 Procedure End 11/19/24 12:52 Anesthesia End 11/19/24 13:03 Out of Room 11/19/24 13:03 Into Recovery 11/19/24 13:06 Procedure Start Time: 10:54 Procedure Stop Time: 12:52 Select all DRAINS/GRAFTS/IMPLANTS that apply: None Estimated Blood Loss: 25cc Fluids Replaced: 1500 Specimen collected: Yes Description of specimen(s) removed: uterus, tubes, ovaries, cervix Description of surgery: Findings: 13 cm uterus, normal appearing ovaries and tubes. Large ventral hernia. on exploration ofthe abdominal cavity the uterus, adnexa, bowel, and liver were found to be normal. Cystoscopy showed no evidence of leaking at approximately 250 cc of normal saline, positive ureteral orifices and jet flow are seen and no suture material was appreciated in the bladder. Specimens removed: Uterus and cervix, Bilateral tubes and ovaries Reason for surgery: This is a 59-year-old who presented to my office with history of enlarged uterus, postmenopausal bleeding, endometrial hyperplasia, and a rectocele. The planned procedure is for arobotic hysterectomy and rectocele repair the risks benefits and alternatives were discussed with the patient the patient had a clear understanding of the procedure and a consent form was signed. Procedure: The patient was placed in the dorsal low lithotomy position and prepped and draped in the normal sterile fashion both abdominally and in the perineum. Her legs were placed in stirrups a Preston catheter was inserted into the urethra without difficulty. A weighted speculum was placed in the vagina chel single- tooth tenaculum was used to grasp the anterior lip of the cervix. An advincula uterine manipulator was inserted through the cervix without complication. It wasthen tied into place at the 2 and 10:00 locations on the cervix. Gloves were changed and attention was turned towards the abdomen. A large midline ventral wall hernia was noted measuring approximately 15 cm x 15 cm was noted. This took up the space of the midline of the abdomen where trocars are normally inserted. Because of thisa left upper quadrant incision was made with a scalpel after Marcaine injection, and an 8 mm incision was made. An 5 mm trocar was inserted through the laparoscope, then inserted into the abdomen under direct visualization using the laparoscope. Good abdominal placement was noted and no complications were appreciated. The patient was placed in Trendelenburg position and a left lower quadrant 5 mmtrocar was inserted into the abdomen under direct visualization. This was to help us place the remaining trocars. The left and right robotic trocars were placed approximately 13 cm lateral to the umbilicus and away from the hernia sac. An air seal device was utilized to create pneumoperitoneum and was placed in the left lower quadrant site. The patient was placed in steep Trendelenburg position. The robot was docked. The hysterectomy was initiated first by taking down the round ligament on each side using the vessel sealer device. The peritoneum between the round ligament and the IP ligament was opened using electrocautery and extended the length of the IP ligament. The IP ligament was then taken down using the vessel sealer device.This freed the ovaries from the sidewall. The broad ligament was then and taken down using the vessel sealer device. Next the bladder flap was taken down without complication. This was doneusing monopolar cautery to the level of the cervical vaginal junction. After the bladder flap was cr eated,uterine vessels were then isolated and cauterized using the vessel sealer deviceand EndoShears. At this point the uterine vessels were taken down further starting from the ascending branch, dissecting along the edges of the cervix to the level of the cervical vaginal junction with hemostasis appreciated. The cervical vaginal junction was then using monopolar cautery in a circumferential pattern across the superior aspect of the cervix. The specimen was delivered through the vagina and sent to pathology. The remaining vaginal cuff was then closed using a V lock suture. This was performed in a running technique. Excellent hemostasis was obtained and good closure was noted. Irrigation was then performed. All operative sites were noted to be hemostatic. A cystoscopy was performed with a 70 degree cystoscope through the urethra into the bladder withoutcomplication. The bladder was instilled with approximately 250 cc of normal saline. Intraoperative images were made. Ureteral orifices and jets were identified. No suture material was appreciated in the bladder. The bladder was then drained and cystoscope was removed. The abdominal cavity was again examined and hemoblast was applied to the vaginalcuff incisions. Thevaginal cuff was noted to have excellent hemostasis was noted. All operative sites were noted to behemostatic. The trochars were removed under direct visualization without complication and pneumoperitoneum wasreduced. At this point the skin was then closed using 4-0 Monocryl subcuticularstitch andsealed with surgical glue. Next the rectocele was repaired. This was performed by making an incision across the introitus thentunneling and cutting into the posterior vaginal mucosa. This was done until the apex of the rectocele bulge was reached. At this point the rectum was from the posterior vaginal mucosa and the vaginal mucosa was excised and passed off the field. The rectal bulge imbricated in the midline using 2-0 Vicryl suture. The vaginal mucosa was reapproximated using 2-0 Vicryl suture. The small vaginal episiotomy was also repaired with the same suture. Excellent hemostasis was noted. The patient tolerated the procedure well sponge lap and needle counts were correct x2 the patient was taken to the recovery room in stable condition. Surgical Findings: Large ventral wall hernia, enlarged uterus, normal ovaries fallopian tubes cervix, small vaginal rectocele. Complications Complications: No Admit VTE Documentation VTE Present on Admission: No VTE Mechan Device Prophylaxis: SCD's VTE Pharm Prophylaxis ordered?: No 11/19/24 1321 Cosigner Signature (if applicable): CC: EDGAR Wynn; Dr. Amado Alvarez MD; Dr. So Jamison DO~ Signed [facility]09-23-2025 History and physical note Author So Alonso [facility] Note Date/Time November 19, 2024 10:03am [facility] Medical Records Department [address] [place] [address] History & Physical Exam 11/19/24 1002 MR#: [id number] Acct: [id number] Name: SILKE LOPEZ Rep #:[id number] : 1965 59 From: So Jamison DO PCP: EDGAR Long Status:REG SD C Location: [place] [address] History and Physical Date of Admission: 11/19/24 Intake Vital Signs 09/20/2514:54 10/12/2510:48 10/21/2509:09 10/21/2509:09 Height 5 ft 3 in 5 ft 3 in 5 ft 3 in 5 ft 3 in Weight: 218 lb 2 oz BMI 38.6 BP 78/54 L Intake Visit Reasons: TRHBSO Cysto Vascular Nurse Required: No Is patient in pain?: No Allergies aspirin (ASA) Allergy (Intermediate, Verified 10/21/24 10:09) Swelling Iodinated Contrast Media (contrast dye - iodinated) Allergy (Mild, Verified 10/21/24 10:09) Hives levofloxacin (From Levaquin) Allergy (Verified 10/21/24 10:09) Other naproxen Allergy (Verified 10/21/24 10:09) Other Penicillins Allergy (Verified 10/21/24 10:09) Other Medications ?Medication ?Instructions ?Recorded ?Confirmed ?Type glucosamine HCl 500 mg tablet 500 mg PO QDAY 09/20/24 10/21/24 History ascorbic acid (vitamin C) 500 mg 500 mg PO DAILY vitamin 10/11/24 5 History chewable tablet (Acerola C) ergocalciferol (vitamin D2) 1,250 1,250 mcg PO QWEEK vitamin 10/11/2409/28 History mcg (50,000 unit) capsule atorvastatin 40 mg tablet (Lipitor) 40 mg PO QHS 30 days #30 tabs 10/12/24 10/21/24 Rx Post menopausal: No Patient : No : No PFSH Medical History Dehydration Wears glasses Arthritis Scoliosis Non-smoker History of edema Thyroid eye disease Primary hyperparathyroidism Hyperparathyroidism Screening for osteoporosis Surgical History S/P parathyroidectomy S/P D&C (status post dilation and curettage) [...] Yes additional social history: - [employer]- Retired [employer] Cysto Details: SILKE LOPEZ is a 58 year old who presents for preoperative evaluation for a scheduled hysterectomy. She presented initially with postmenopausal bleeding. A biopsy showed simple endometrial hyperplasia without atypia. Ultrasound shows anenlarge 13 cm uterus, likely adenomyosis. She is status post a parathyroidectomyand has lost over 50 pounds intentinally. History 4 Elective abortions Hx Para 3 Spontaneous abortions Hx # Term Pregnancies Ectopic pregnancies Hx # Pregnancies Multiple births # of living children 3 Past Pregnancies Del. Date Name GA/Weeks Outcome Route Bth Weight Gen Labor Lgth Anesthesia Del Locatn Provider FOB Unknown [place] Unknown [place] Unknown [place] ROS Const ROS Unobtainable: All systems reviewed & are unremarkable except as noted in H Resp Resp: Reports system reviewed and no additional complaints, except as documented; Denies cough GI GI: Reports as per HPI Psych Psych: Reports system reviewed and no additional complaints, except as documented Exam Const General: cooperative, healthy appearing, comfortable and no acute distress Resp Effort & Inspection: normal respiratory effort Skin General: no rashes or lesions noted Psych Appearance: grossly normal Speech and Movement: speech and movement normal Coding Level of Care Code Off vis,est,level 4 Diagnoses Pre-op evaluation Z01.818 Obesity (BMI 30-39.9) E66.9 Brain TIA G45.9 S/P parathyroidectomy Z98.890; Z90.89 Endometrial hyperplasia without atypia, simple N85.01 Enlarged uterus N85.2 Postmenopausal bleeding N95.0 Obesity E66.9 Assessment and Plan Assessment and Plan (1) Pre-op evaluation: Status: Acute (2) Obesity (BMI 30-39.9): Status: Acute (3) Brain TIA: Status: Acute (4) S/P parathyroidectomy: Status: Acute Comment: Patient 58-year-old [...] declaring any symptoms that would be necessarily cardiac?related. I also suggested that it would be imperative to know if this sort of hedging was present on any prior EKG readings. Patient andher confirm understanding of this and confirm they will follow-up with [place] [facility]. (5) Endometrial hyperplasia without atypia, simple: Status: Acute (6) Enlarged uterus: Status: Acute (7) Postmenopausal bleeding: Status: Acute Comment: EMB pending. US ordered (8) Obesity: Status: Chronic Comment: Since 05/2022 lost 114# WW Orders: Orders Vitamin D,25 Hydroxy 10/21/24 Z.818 - Encounter for other preprocedural examination CBC W/Diff, Automated 10/21/24 Z.818 - Encounter for other preprocedural examination Comprehensive Metabolic Profil 10/21/24 Z818 - Encounter for other preprocedural examination Thyroid Stim Hormone (TSH) 10/21/24 Z818 - Encounter for other preproceduralexamination Type & Screen - PAT ONLY 10/21/24 Z818 - Encounter for other preprocedural examination Plan After discussing the patient's diagnosis and treatment plan options, patient wishes to proceed with surgical management. I have discussed with the patient the risks, benefits, and alternatives of the procedure which include but are notlimited to risks of anesthesia, bleeding, infection, possible damage to bowel, bladder, or surrounding vasculature which could lead to additional surgery to evaluate any complications. Patient agrees to procedure and wishes to proceed. ACOG/uptodate references given for additional information regarding procedure. plan is for a total robotic hysterectomy and cystoscopy, rectocele repair 11/19/24 1003 <Electronically signed by So Jamison DO> Cosigner Signature (if applicable): CC: EDGAR Wynn; Dr. So Jamison DO~ Signed [facility] Work Phone: 1(334) 410-335609-23-2025 Consult note Author Amado [facility] Note Date/Time November 19, 2024 10:02am [facility] Medical Records Department [address] [place] [address] Pre-Anesthesia Evaluation 11/19/24 0951 MR#: [id number] Acct: [id number] Name: SILKE LOPEZ Rep #:[id number] : 1965 59 From: Amado Alvarez MD PCP: EDGAR Long Status:REG SD C Y Race: C Location: [place] [address]- ASA Classification* ASA Classification ASA Classification: 3 [...] risk assessments. Anesthesia Type Anesthesia Type: General History Source History Obtained from:: Patient and Chart Anesthesia Focused Assessment* Temperature: 97.2 F Pulse Rate: 48 Blood Pressure: 105/57 Respiratory Rate: 16 Pulse Ox: 100 Oxygen Delivery Method: Room Air Airway Assessment Mouth opens: >3 cm Mallampati Score: III Teeth Condition: Caps/Crowns (Patient has a capped left lower molar.) Neck Range of motion (ROM): Limited ROM (Slight Decrease) Labs Anesthesia Preop lab: CBC WBC, (4.4-11.0) 4.7 K/mm3 11/12/24, 09: RBC, (4.2-5.4) 4.49 M/mm3 11/12/24, 09:22 Hgb, (12.0-15.0) 14.5 g/dL 11/12/24, : Hct, (37-47) 43.9 % 11/12/24, 09:22 Plt Count, (150-450) 293 K/mm3 11/12/24, 09:22 CHEMISTRY Potassium, (3.3-5.1) 4.5 mmol/L 11/12/24, 09:22 Sodium, (133-145) 143 mmol/L 11/12/24, 09:22 Magnesium, (1.5-2.2) 2.4 mg/dL H 11/12/24, 09:21 BUN, (4-19) 21 mg/dL H 11/12/24, 09:22 Creatinine, (0.70-1.20) 0.88 mg/dL 11/12/24, 09:22 Glucose, (70-99) 84 mg/dL 11/12/24, 09:22 POC Glucose, (74-106) 81 mg/dL Today, 08:58 TSH, (0.300-4.200) 2.440 uIU/mL 11/12/24, 09:22 COAG PT, (11.7-14.9) 13.8 SECONDS 10/11/24, 17:30 Pre-Assessment Diagnosis/Proposed Procedure Planned Operative Procedure(s): TOTAL ROBOTIC HYSTERECTOMY BILATERAL SALPINGO-OOPHORECOTMY, CYTSOSCOPY, RECTOCELE REPAIR Anesthesia History Anesthesia History - tripe finisher: Anesthesia History - tripe finisher Hx Hospitalization Yes: SEP 2024 11/05/24 13:07 Any Problems With Anesthesia No 11/05/24 13:07 Cholinesterase deficiency No 11/05/24 13:07 You/Your Family Experience No 11/05/24 13:07 fever (hyperthermia) with Relationship Recent Exposure to Contagious No 11/19/24 08:44 Disease Does patient have nerve No 11/05/24 13:07 stimulator Patient instructed to have device shut off --Does patient have Pacemaker No 11/19/24 08:44 or ICD? When Was Last Pacemaker Check QUESTION #4 FULL TEXT: You/Your Family Experience fever (hyperthermia) with Anesthesia Last Oral Intake Last Oral intake: Last Oral Intake NPO since 06:00 11/19/24 08:44 Meds taken in AM with sips of Yes 11/19/24 08:44 water? Meds patient instructed to eras, see mar 11/19/24 08:44 take am of surgery Any additional information?: Yes NPO since: 06:00 (Patient had her presurgical Ensure at 6 AM.) Meds taken in AM with sips of water?: No PONV PONV - tripe finisher: PONV - tripe finisher Female Yes 11/05/24 13:07 HX of Motion Sickness No 11/05/24 13:07 HX of N/V After Surgery No 11/05/24 13:07 Non-Smoker Yes 11/05/24 13:07 Duration of Surgery greater Yes 11/05/24 13:07 than 60 minutes Number of Risk Factors 3 11/05/24 13:07 PONV Score Moderate Risk 11/05/24 13:07 Height & Weight Height & Weight: Anesthesia: Height & Weight Height 5 ft 3 in 11/19/24 08:44 Weight: 99 kg 11/19/24 08:44 Body Mass Index (BMI) 38.6 11/19/24 08:44 Respiratory Assessment Respiratory Assessment - tripe finisher: Respiratory Tract Infection Hx - tripe finisher Hx Respiratory Tract Infection No 11/05/24 13:07 STOP Sleep Apnea STOP Sleep Apnea - tripe finisher: STOP Sleep Apnea - tripe finisher Hx Hypertension No 11/05/24 13:07 Hx Sleep Apnea No 11/05/24 13:07 CPAP BIPAP Do you snore loudly (louder No 11/05/24 13:07 than talking or can be heard Do you often feel tired/ No 11/05/24 13:07 fatigued/ sleepy during daytime? Has anyone observed you stop No 11/05/24 13:07 breathing during sleep? STOP Results Negative 11/05/24 13:07 QUESTION #5 FULL TEXT : Do you snore loudly (louder than talking or can be heard through closed doors)? 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 Specify any problems Hx of Preganancy in last 3 No 11/05/24 13:07 Months Nurse Filling Out Transfusion [email or web address] 11/05/24 13:07 & Questions: Date: 11/05/24 11/05/24 13:07 Time: 13:11 11/05/24 13:07 Patient unable to answer at this time (ie. confused, unrespo /Reproduction History /Reproductive History - tripe finisher: /Reproductive Hx- tripe finisher Hx Now Gestational Age (in weeks): EDC: Hx Hx Para Hx Section SAB No 10/21/24 10:09 Active Medications Active Medications: Current Medications Generic Name Dose Route Start Last Admin Trade Name Freq PRN Reason Stop Dose Admin Acetaminophen 1,000 mg 11/19/24 11:00 11/19/24 08:54 Acetaminophen 500 Mg Tablet PO 11/19/24 11:01 1,000 mg PREOP ONE Administration Celecoxib 400 mg 11/19/24 11:00 11/19/24 08:54 Celecoxib 200 Mg Capsule PO 11/19/24 11:01 400 mg PREOP ONE Administration Gabapentin 600 mg 11/19/24 11:00 11/19/24 08:54 Gabapentin 600 Mg Tablet PO 11/19/24 11:01 600 mg PREOP ONE Administration Lactated Ringer's 1,000 mls @ 40 mls/hr 11/19/24 11:00 11/19/24 08:55 IV 40 mls/hr .Q25H ALCIDES Administration Clindamycin Phosphate 900 mg in 50 mls @ 75 mls/hr 11/19/24 11:00 Cleocin IV 11/19/24 11:39 INTRAOP ONE Gentamicin Sulfate 280 mg/ 57 mls @ 100 mls/hr 11/19/24 11:00 11/19/24 09:18 Dextrose IV 11/19/24 11:34 100 mls/hr INTRAOP ONE Administration Lactated Ringer's 1,000 mls @ 70 mls/hr 11/19/24 11:00 IV .[id number] ALCIDES Magnesium Sulfate 1 gm/ 102 mls @ 408 mls/hr 11/19/24 11:00 11/19/24 09:17 Dextrose IV 11/19/24 11:14 Infused PREOP ONE Infusion Insulin Human Lispro 0 unit 11/19/24 11:00 Insulin Lispro 100 Unit/Ml Insuln.Pen SC 11/19/24 17:00 Q4H PRN PRN BG >/= 180, SEE PROTOCOL Protocol Ondansetron HCl 4 mg 11/19/24 11:00 Ondansetron 4 Mg/2 Ml Vial IV 11/19/24 11:01 INTRAOP ONE Phenazopyridine HCl 190 mg 11/19/24 11:00 11/19/24 08:54 Phenazopyridine 95 Mg Tablet PO 11/19/24 11:01 190 mg PREOP ONE Administration Scopolamine HBr 1 patch 11/19/24 11:00 11/19/24 08:55 Scopolamine 1mg/72hr Patch TD 11/19/24 11:01 1 mg PREOP ONE Administration PFSH Medical History High cholesterol History of echocardiogram Dehydration Wears glasses Arthritis Scoliosis Non-smoker History of edema Thyroid eye disease Primary hyperparathyroidism Hyperparathyroidism Screening for osteoporosis Home Medications ?Medication ?Instructions ?Recorded ?Last Taken ?Type glucosamine HCl 500 mg tablet 500 mg PO QDAY 09/20/24 11/18/24 History ascorbic acid (vitamin C) 500 mg 500 mg PO DAILY vitam in 10/11/24 11/18/24 History chewable tablet (Acerola C) ergocalciferol (vitamin D2) 1,250 1,250 mcg PO QWEEK v itamin 10/11/24 11/16/24 History mcg (50,000 unit) capsule zinc 25 mg tablet 25 mg PO DAILY 11/19/2410/29 History Allergy/AdvReac Type Severity Reaction Status Date / Time aspirin (ASA) Allergy Intermediate Swelling Verified 11/19/24 08:42 Iodinated Contrast Media Allergy Mild Hives Verified 11/19/24 08:42 (contrast dye - iodinated) levofloxacin (From Levaquin) Allergy Other Verified 11/19/24 08:42 naproxen Allergy Other Verified 11/19/24 08:42 Penicillins Allergy Other Verified 11/19/24 08:42 Family History Father Cancer Prostate Sister Cancer cholangiocarcinoma- Bile duct Grandfather Cancer Prostate Surgical History S/P parathyroidectomy S/P D&C (status post dilation and curettage) [...] and no additional complaints, except as documented. 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:REG SD C Location: [place] [address] History and Physical Date of Admission: 11/19/24 Intake Vital Signs 09/20/2514:54 10/12/2510:48 10/21/2509:09 10/21/2509:09 Height 5 ft 3 in 5 ft 3 in 5 ft 3 in 5 ft 3 in Weight: 218 lb 2 oz BMI 38.6 BP 78/54 L Intake Visit Reasons: TRHBSO Cysto Vascular Nurse Required: No Is patient in pain?: No Allergies aspirin (ASA) Allergy (Intermediate, Verified 10/21/24 10:09) Swelling Iodinated Contrast Media (contrast dye - iodinated) Allergy (Mild, Verified 10/21/24 10:09) Hives levofloxacin (From Levaquin) Allergy (Verified 10/21/24 10:09) Other naproxen Allergy (Verified 10/21/24 10:09) Other Penicillins Allergy (Verified 10/21/24 10:09) Other Medications ?Medication ?Instructions ?Recorded ?Confirmed ?Type glucosamine HCl 500 mg tablet 500 mg PO QDAY 09/20/24 10/21/24 History ascorbic acid (vitamin C) 500 mg 500 mg PO DAILY vitamin 10/11/24 5 History chewable tablet (Acerola C) ergocalciferol (vitamin D2) 1,250 1,250 mcg PO QWEEK vitamin 10/11/2409/28 History mcg (50,000 unit) capsule atorvastatin 40 mg tablet (Lipitor) 40 mg PO QHS 30 days #30 tabs 10/12/24 10/21/24 Rx Post menopausal: No Patient : No : No PFSH Medical History Dehydration Wears glasses Arthritis Scoliosis Non-smoker History of edema Thyroid eye disease Primary hyperparathyroidism Hyperparathyroidism Screening for osteoporosis Surgical History S/P parathyroidectomy S/P D&C (status post dilation and curettage) [...] 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 She presented initially with postmenopausal bleeding. A biopsy showed simple endometrial hyperplasia without atypia. Ultrasound shows anenlarge 13 cm uterus, likely adenomyosis. She is status post a parathyroidectomyand has lost over 50 pounds intentinally. History 4 Elective abortions Hx Para 3 Spontaneous abortions Hx # Term Pregnancies Ectopic pregnancies Hx # Pregnancies Multiple births # of living children 3 Past Pregnancies Del. Date Name GA/Weeks Outcome Route Bth Weight Gen Labor Lgth Anesthesia Del [facility] Provider FOB Unknown Spencer Unknown Ngozi Unknown [place] ROS Const ROS Unobtainable: All systems reviewed & are unremarkable except as noted in H Resp Resp: Reports system reviewed and no additional complaints, except as documented; Denies cough GI GI: Reports as per HPI Psych Psych: Reports system reviewed and no additional complaints, except as documented Exam Const General: cooperative, healthy appearing, comfortable and no acute distress Resp Effort & Inspection: normal respiratory effort Skin General: no rashes or lesions noted Psych Appearance: grossly normal Speech and Movement: speech and movement normal Coding Level of Care Code Off vis,est,level 4 Diagnoses Pre-op evaluation Z01.818 Obesity (BMI 30-39.9) E66.9 Brain TIA G45.9 S/P parathyroidectomy Z98.890; Z90.89 Endometrial hyperplasia without atypia, simple N85.01 Enlarged uterus N85.2 Postmenopausal bleeding N95.0 Obesity E66.9 Assessment and Plan Assessment and Plan (1) Pre-op evaluation: Status: Acute (2) Obesity (BMI 30-39.9): Status: Acute (3) Brain TIA: Status: Acute (4) S/P parathyroidectomy: Status: Acute Comment: Patient 58-year-old [...] visit I have asked her to obtain [facility] ed calcium and PTH labs to confirm no further action is required. Lastly, I discussed that the significance of her EKG reading from her preoperative evaluation remains undetermined but that I recommended follow-up with her primary care and then potentially cardiology as deemed necessary. I suggested that a big positive list she is not declaring any symptoms that would be necessarily cardiac?related. I also suggested that it would be imperative to know if this sort of hedging was present on any prior EKG readings. Patient andher confirm understanding of this and confirm they will follow-up with [facility] physicians. (5) Endometrial hyperplasia without atypia, simple: Status: Acute (6) Enlarged uterus: Status: Acute (7) Postmenopausal bleeding: Status: Acute Comment: EMB pending. US ordered (8) Obesity: Status: Chronic Comment: Since 05/2022 lost 114# WW Orders: Orders Vitamin D,25 Hydroxy 10/21/24 Z.818 - Encounter for other preprocedural examination CBC W/Diff, Automated 10/21/24 Z.818 - Encounter for other preprocedural examination Comprehensive Metabolic Profil 10/21/24 Z.818 - Encounter for other preprocedural examination Thyroid Stim Hormone (TSH) 10/21/24 Z.818 - Encounter for other preproceduralexamination Type & Screen - PAT ONLY 10/21/24 Z01.818 - Encounter for other preprocedural examination Plan After discussing the patient's diagnosis and treatment plan options, patient wishes to proceed withsurgical management. I have discussed with the patient the risks, benefits, and alternatives of theprocedure which include but are notlimited to risks of anesthesia, bleeding, infection, possible damage to bowel, bladder, or surrounding vasculature which could lead to additional surgery to evaluate any complications. Patient agrees to procedure and wishes to proceed. ACOG/uptodate references given for additional information regarding procedure. plan is for a total robotic hysterectomy and cystoscopy, rectocele repair 11/19/24 1003 Cosigner Signature (if applicable): CC: EDGAR Wynn; Dr. So Jamison, DO~ Signed [facility]09-23-2025 Consult note [facility] Medical Records Department [address] [place] [address] Pre-Anesthesia Evaluation 11/19/24 0951 MR#: [id number] Acct: [id number] Name: SILKE LOPEZ Rep #:[id number] : 1965 59 From: Amado Alvarez MD PCP: EDGAR Long Status:REG SD C Y Race: C Location: [place] [address] ASA Classification* ASA Classification ASA Classification: 3 [...] risk assessments. Anesthesia Type Anesthesia Type: General History Source History Obtained from:: Patient and Chart Anesthesia Focused Assessment* Temperature: 97.2 F Pulse Rate: 48 Blood Pressure: 105/57 Respiratory Rate: 16 Pulse Ox: 100 Oxygen Delivery Method: Room Air Airway Assessment Mouth opens: >3 cm Mallampati Score: III Teeth Condition: Caps/Crowns (Patient has a capped left lower molar.) Neck Range of motion (ROM): Limited ROM (Slight Decrease) Labs Anesthesia Preop lab: CBC WBC, (4.4-11.0) 4.7 K/mm3 11/12/24, 09: RBC, (4.2-5.4) 4.49 M/mm3 11/12/24, 09:22 Hgb, (12.0-15.0) 14.5 g/dL 11/12/24, : Hct, (37-47) 43.9 % 11/12/24, 09: Plt Count, (150-450) 293 K/mm3 11/12/24, 09:22 CHEMISTRY Potassium, (3.3-5.1) 4.5 mmol/L 11/12/24, 09: Sodium, (133-145) 143 mmol/L 11/12/24, 09: Magnesium, (1.5-2.2) 2.4 mg/dL H 11/12/24, 09: BUN, (4-19) 21 mg/dL H 11/12/24, 09:22 Creatinine, (0.70-1.20) 0.88 mg/dL 11/12/24, 09:22 Glucose, (70-99) 84 mg/dL 11/12/24, 09:22 POC Glucose, (74-106) 81 mg/dL Today, 08:58 TSH, (0.300-4.200) 2.440 uIU/mL 11/12/24, 09:22 COAG PT, (11.7-14.9) 13.8 SECONDS 10/11/24, 17:30 Pre-Assessment Diagnosis/Proposed Procedure Planned Operative Procedure(s): TOTAL ROBOTIC HYSTERECTOMY BILATERAL SALPINGO- OOPHORECOTMY, CYTSOSCOPY, RECTOCELE REPAIR Anesthesia History Anesthesia History - tripe finisher: Anesthesia History - tripe finisher Hx Hospitalization Yes: SEP 2024 11/05/24 13:07 Any Problems With Anesthesia No 11/05/24 13:07 Cholinesterase deficiency No 11/05/24 13:07 You/Your Family Experience No 11/05/24 13:07 fever (hyperthermia) with Relationship Recent Exposure to Contagious No 11/19/24 08:44 Disease Does patient have nerve No 11/05/24 13:07 stimulator Patient instructed to have device shut off --Does patient have Pacemaker No 11/19/24 08:44 or ICD? When Was Last Pacemaker Check QUESTION #4 FULL TEXT: You/Your Family Experience fever (hyperthermia) with Anesthesia Last Oral Intake Last Oral intake: Last Oral Intake NPO since 06:00 11/19/24 08:44 Meds taken in AM with sips of Yes 11/19/24 08:44 water? Meds patient instructed to eras, see mar 11/19/24 08:44 take am of surgery Any additional information?: Yes NPO since: 06:00 (Patient had her presurgical Ensure at 6 AM.) Meds taken in AM with sips of water?: No PONV PONV - tripe finisher: PONV - tripe finisher Female Yes 11/05/24 13:07 HX of Motion Sickness No 11/05/24 13:07 HX of N/V After Surgery No 11/05/24 13:07 Non-Smoker Yes 11/05/24 13:07 Duration of Surgery greater Yes 11/05/24 13:07 than 60 minutes Number of Risk Factors 3 11/05/24 13:07 PONV Score Moderate Risk 11/05/24 13:07 Height & Weight Height & Weight: Anesthesia: Height & Weight Height 5 ft 3 in 11/19/24 08:44 Weight: 99 kg 11/19/24 08:44 Body Mass Index (BMI) 38.6 11/19/24 08:44 Respiratory Assessment Respiratory Assessment - tripe finisher: Respiratory Tract Infection Hx - tripe finisher Hx Respiratory Tract Infection No 11/05/24 13:07 STOP Sleep Apnea STOP Sleep Apnea - tripe finisher: STOP Sleep Apnea - tripe finisher Hx Hypertension No 11/05/24 13:07 Hx Sleep Apnea No 11/05/24 13:07 CPAP BIPAP Do you snore loudly (louder No 11/05/24 13:07 than talking or can be heard Do you often feel tired/ No 11/05/24 13:07 fatigued/ sleepy during daytime? Has anyone observed you stop No 11/05/24 13:07 breathing during sleep? STOP Results Negative 11/05/24 13:07 QUESTION #5 FULL TEXT : Do you snore loudly (louder than talking or can be heard through closeddoors)? 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 Specify any problems Hx of Preganancy in last 3 No 11/05/24 13:07 Months Nurse Filling Out Transfusion [email or web address] 11/05/24 13:07 & Questions: Date: 11/05/24 11/05/24 13:07 Time: 13:11 11/05/24 13:07 Patient unable to answer at this time (ie. confused, unrespo /Reproduction History /Reproductive History - tripe finisher: /Reproductive Hx- tripe finisher Hx Now Gestational Age (in weeks): EDC: Hx Hx Para Hx Section SAB No 10/21/24 10:09 Active Medications Active Medications: Current Medications Generic Name Dose Route Start Last Admin Trade Name Sergioq PRN Reason Stop Dose Admin Acetaminophen 1,000 mg 11/19/24 11:00 11/19/24 08:54 Acetaminophen 500 Mg Tablet PO 11/19/24 11:01 1,000 mg PREOP ONE Administration Celecoxib 400 mg 11/19/24 11:00 11/19/24 08:54 Celecoxib 200 Mg Capsule PO 11/19/24 11:01 400 mg PREOP ONE Administration Gabapentin 600 mg 11/19/24 11:00 11/19/24 08:54 Gabapentin 600 Mg Tablet PO 11/19/24 11:01 600 mg PREOP ONE Administration Lactated Ringer's 1,000 mls @ 40 mls/hr 11/19/24 11:00 11/19/24 08:55 IV 40 mls/hr .Q25H ALCIDES Administration Clindamycin Phosphate 900 mg in 50 mls @ 75 mls/hr 11/19/24 11:00 Cleocin IV 11/19/24 11:39 INTRAOP ONE Gentamicin Sulfate 280 mg/ 57 mls @ 100 mls/hr 11/19/24 11:00 11/19/24 09:18 Dextrose IV 11/19/24 11:34 100 mls/hr INTRAOP ONE Administration Lactated Ringer's 1,000 mls @ 70 mls/hr 11/19/24 11:00 IV .[id number] ALCIDES Magnesium Sulfate 1 gm/ 102 mls @ 408 mls/hr 11/19/24 11:00 11/19/24 09:17 Dextrose IV 11/19/24 11:14 Infused PREOP ONE Infusion Insulin Human Lispro 0 unit 11/19/24 11:00 Insulin Lispro 100 Unit/Ml Insuln.Pen SC 11/19/24 17:00 Q4H PRN PRN BG >/= 180, SEE PROTOCOL Protocol Ondansetron HCl 4 mg 11/19/24 11:00 Ondansetron 4 Mg/2 Ml Vial IV 11/19/24 11:01 INTRAOP ONE Phenazopyridine HCl 190 mg 11/19/24 11:00 11/19/24 08:54 Phenazopyridine 95 Mg Tablet PO 11/19/24 11:01 190 mg PREOP ONE Administration Scopolamine HBr 1 patch 11/19/24 11:00 11/19/24 08:55 Scopolamine 1mg/72hr Patch TD 11/19/24 11:01 1 mg PREOP ONE Administration PFSH Medical History High cholesterol History of echocardiogram Dehydration Wears glasses Arthritis Scoliosis Non-smoker History of edema Thyroid eye disease Primary hyperparathyroidism Hyperparathyroidism Screening for osteoporosis Home Medications ?Medication ?Instructions ?Recorded ?Last Taken ?Type glucosamine HCl 500 mg tablet 500 mg PO QDAY 09/20/24 11/18/24 History ascorbic acid (vitamin C) 500 mg 500 mg PO DAILY vitam in 10/11/24 11/18/24 History chewable tablet (Acerola C) ergocalciferol (vitamin D2) 1,250 1,250 mcg PO QWEEK v itamin 10/11/24 11/16/24 History mcg (50,000 unit) capsule zinc 25 mg tablet 25 mg PO DAILY 11/19/2410/29 History Allergy/AdvReac Type Severity Reaction Status Date / Time aspirin (ASA) Allergy Intermediate Swelling Verified 11/19/24 08:42 Iodinated Contrast Media Allergy Mild Hives Verified 11/19/24 08:42 (contrast dye - iodinated) levofloxacin (From Levaquin) Allergy Other Verified 11/19/24 08:42 naproxen Allergy Other Verified 11/19/24 08:42 Penicillins Allergy Other Verified 11/19/24 08:42 Family History Father Cancer Prostate Sister Cancer cholangiocarcinoma- Bile duct Grandfather Cancer Prostate Surgical History S/P parathyroidectomy S/P D&C (status post dilation and curettage) S/P appendectomy Social History household members: spouse current occupational status: employed current occupation: 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 11/19/24 1002 mohsen HAUSER> Date _ Amado Alvarez MD [facility] Signature: Date CC: ~ Signed [facility]09-23-2025 [facility] Medical Records Department [address] [place] [address] History Physical Exam 11/19/24 1002 MR#: [id number] Acct: [id number] Name: SILKE LOPEZ Rep #: [id number] : 1965 59 From: So Jamison DO PCP: EDGAR Long Status:REG [facility] Location: [facility] History and Physical Date of Admission: 11/19/24 Intake Vital Signs 09/20/2514:54 10/12/2510:48 10/21/2509:09 10/21/2509:09 Height 5 ft 3 in 5 ft 3 in 5 ft 3 in 5 ft 3 in Weight: 218 lb 2 oz BMI 38.6 BP 78/54 L Intake Visit Reasons: TRHBSO Cysto Vascular Nurse Required: No Is patient in pain?: No Allergies aspirin (ASA) Allergy (Intermediate, Verified 10/21/24 10:09) Swelling Iodinated Contrast Media (contrast dye - iodinated) Allergy (Mild, Verified 10/21/24 10:09) Hives levofloxacin (From Levaquin) Allergy (Verified 10/21/24 10:09) Other naproxen Allergy (Verified 10/21/24 10:09) Other Penicillins Allergy (Verified 10/21/24 10:09) Other Medications ???Medication ???Instructions ???Recorded ???Confirmed ???Type glucosamine HCl 500 mg tablet 500 mg PO QDAY 09/20/24 10/21/24 History ascorbic acid (vitamin C) 500 mg 500 mg PO DAILY vitamin 10/11/24 10/21/24 History chewable tablet (Acerola C) ergocalciferol (vitamin D2) 1,250 1,250 mcg PO QWEEK vitamin 10/11/24 10/21/24 Histo ry mcg (50,000 unit) capsule atorvastatin 40 mg tablet (Lipitor) 40 mg PO QHS 30 days #30 tabs 10/12/24 10/21/24 Rx Post menopausal: No Patient : No : No PFSH Medical History Dehydration Wears glasses Arthritis Scoliosis Non-smoker History of [...] 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 She presented initially with postmenopausal bleeding. A biopsy showed simple endometrial hyperplasia without atypia. Ultrasound shows an enlarge 13 cm uterus, likely adenomyosis. She is status post a parathyroidectomy and has lost over 50 pounds intentinally. History 4 Elective abortions Hx Para 3 Spontaneous abortions Hx # Term Pregnancies Ectopic pregnancies Hx # Pregnancies Multiple births # of living children 3 Past Pregnancies Del. Date Name GA/Weeks Outcome Route Bth Weight Infant Gen [facility] FOB Unknown Spencer Unknown Ngozi Unknown [...] of Care Code Off vis,est,level 4 Diagnoses Pre-op evaluation Z01.818 Obesity (BMI 30-39.9) E66.9 Brain TIA G45.9 S/P parathyroidectomy Z98.890; Z90.89 Endometrial hyperplasia without atypia, simple N85.01 Enlarged uterus N85.2 Postmenopausal bleeding N95.0 Obesity E66.9 Assessment and Plan Assessment and Plan (1) Pre-op evaluation: Status: Acute (2) Obesity (BMI 30-39.9): Status: Acute (3) Brain TIA: Status: Acute (4) S/P parathyroidectomy: Status: Acute Comment: Patient 58-year-old female status post invasive parathyroidectomy with intraoperative finding of a left inferior parathyroid adenoma that was over 800 mg and saw her PTH dropped from 790 to 22 intraoperatively. Today represents patient's first postoperative visit and her immediate postoperative concerns with rash and mild hoarseness are now resolved. Fu (more content not included)...[facility]08-16-2025 Hospital Discharge instructionsAdditional Instructions [facility]: [facility] Phone: 1([phone]) 674-282608-16-2025 Discharge summary Author Merlin Rivers [facility] Note Date/Time October 12, 2024 11 :50am [facility] Medical Records Department [address] [place] [address] Discharge Summary 10/12/24 1147 MR#: [id number] Acct: [id number] Name: SILKE LOPEZ Rep #:[id number] : 1965 58 From: Merlin Turner PCP: EDGAR Long Status:ADM IN O Location: [place] [address] Providers Date of Admission: 10/11/24 Date of Discharge: 10/12/24 Primary Care Physician: EDGAR Long Consultations 10/11/24 21:43 Consult: Tele-Neurology Routine Consulting Provider: [facility] Reason for Consult: Acute Ischemic Stroke/TIA EMERGENT Consult: No MD Notified: Yes Date Notified: 10/11/24 Time Notified: 23:50 Method of Notification: Answering Service Nursing Unit Staff Notify [facility] of Tele-Neurology Consult: Yes Reason For Visit: TIA VS [facility], WITH VISUAL DISTURBANCE, SLURRED Diagnosis Discharge Diagnosis (1) Brain TIA: Status: Acute Code(s): G45.9 - Transient cerebral ischemic attack, unspecified (2) Slurred speech: Status: Acute Code(s): R47.81 - Slurred speech (3) Headache: Status: Acute Code(s): R51.9 - Headache, unspecified Qualifiers: Headache type: unspecified Headache chronicity pattern: acute headache Intractability: not intractable Qualified Code(s): R51.9 - Headache, unspecified (4) Visual disturbance: Status: Acute Code(s): H53.9 - Unspecified visual disturbance (5) Dehydration: Status: Acute Code(s): E86.0 - Dehydration (6) Obesity (BMI 30-39.9): Status: Acute Code(s): E66.9 - Obesity, unspecified Plan 58-year-old female admitted with visual changes like spots or light flashes. She is also having trouble putting words together/speech difficulties and was hard to understand. She was not complaining of headache. Visual and speech changes resolved. Related to stroke. Symptoms started at 1:30 PM. As per teleneurologist patient still had headache. NIH stroke scale 0. Clinical impression was either TIA versus complicated migraine. No thrombolytic recommendation because of onset amnesia. 1. TIA vs CVA; with transient slurred speech, visual disturbance and headache - Admit to PCU under observation status. Check MRI of the brain to evaluate for evidence of CVA. Check echocardiogram to evaluate LVEF. Start clopidogrel (in light of listed allergy to aspirin) plus statin and check TSH, B12, Folate, HgbA1c, Lipid Profile, UDS and HIEU. Give ondansetron IV prn for nausea and vomiting. Give acetaminophen prn for [id number] (level 1-5/10) pain or fever. Give oxycodone orally prn for severe (level 6-10/10) pain. Finally, anastacio consult [facility] to see this patient on rounds in the a.m. furtherrecommendations help appreciated advancement. Patient had MRI brain which was reported no acute intracranial abnormality. CTAhead and neck reported normal.. Patient just had echo on June 2024 which was normal right atrium left atrium mildly enlarged. Mild TR PASP 28 mmHg. As per the neurologist stroke unlikely most likely complicated migraine. Patient is discharged home with follow-up with neurologist Fasting profile shows LDL elevated therefore discharged on atorvastatin 40 mg subcu daily. 2. Dehydration; with BUN/creatinine ratio of 30: Received with IV fluid. Dehydration corrected 3. Obesity (class II); with BMI of 39.5 KG per square meter. TSH normal. B12 normal. 4. DM-2; currently not on treatment - ADA diet if patient passes bedside allow evaluation. FSBS q. AC/HS plus SSI. A1c 5.5%. 5 psoriasis - Stable and without evidence of acute flare. 6. PVD - Noted. 9. History of hyperparathyroidism; s/p parathyroidectomy - Noted. 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 11. OA; on glucosamine - Give acetaminophen prn for pain or fever. 12. DVT prophylaxis - Enoxaparin 40 mg sq daily plus SCD's. Discharge medication reconciliation done. Discharge follow-up instructions completed. Discharge process discussed with the patient and all questions wereanswered to patient's satisfaction. Follow with PCP in 1 to 2 weeks Total time spent, exact 35 minutes on discharge meds reconciliation, examination, coordination of care with nurses and ancillary staff, review of imaging and blood test and discussion with the patient on follow-up instructions. Laboratory Results 10/11/24 17:21: POC Glucose 139 H 10/11/24 17:30: WBC 5.8, RBC 4.21, Hgb 13.3, Hct 40.3, MCV 95.7, MCH 31.6, MCHC 33.0, RDW Std Deviation 46.7 H, RDW Coeff of Luisa 13.3, Plt Count 288, MPV 10.9, Immature Gran % (Auto) 0.300, Neut % (Auto) 62.1, Lymph % (Auto) 27.4, Casey % (Auto) 7.1, Eos % (Auto) 2.4, Baso % (Auto) 0.7, Absolute Neuts (auto) 3.6, Absolute Lymphs (auto) 1.59, Nucleated RBC % 0, PT 13.8, INR 1.0, APTT 34.4, Sodium 141, Potassium 4.0, Chloride 106, Carbon Dioxide 24.3, Anion Gap 11, BUN 28 H, Creatinine 0.92, Estim Creat Clear Calc 74.73, Est GFR (MDRD) Non-Af 72, BUN/Creatinine Ratio 30.0 H, Glucose 109 H, Calcium 9.2, Troponin T High Sens 10 10/11/24 19:26: Troponin T Hi Sens 2 Hr 7 10/11/24 22:09: Hemoglobin A1c 5.5, Troponin T Hi Sens 4Hr 7, Serum Folate 10.50, TSH 1.410, Ethyl Alcohol < 10.1 10/12/24 01:33: Troponin T High Sens 6 D 10/12/24 03:50: Troponin T Hi Sens 2 Hr < 6 10/12/24 05:43: Troponin T Hi Sens 4Hr Pending, Triglycerides 37, Cholesterol 194, LDL Cholesterol, Calc 147, VLDL Cholesterol 7, HDL Cholesterol 40, Cholesterol/HDL Ratio 4.87, Vitamin B12 Pending 10/12/24 06:00: Urine Opiates Screen Pending, U Buprenorphine Qual Pending, Ur Oxycodone Screen Pending, Urine Methadone Screen Pending, Urine Fentanyl Screen Pending, Ur Barbiturates Screen Pending, Ur Phencyclidine Scrn Pending, Ur Amphetamines Screen Pending, U Benzodiazepines Scrn Pending, Urine Cocaine Screen Pending, U Cannabinoids Screen Pending Clinical Impression(s) from Imaging Studies Brain CT 10/11/24 17:22 IMPRESSION: No intracranial hemorrhage. No mass effect or midline shift. Reading Location[facility] Head/Neck CTA 10/11/24 19:10 IMPRESSION: Normal CTA of the head and neck. Reading Location: [id number] Medications at Discharge Home Medications glucosamine HCl 500 mg tablet 500 mg PO QDAY 09/20/24 ascorbic acid (vitamin C) 500 mg chewable tablet (Acerola C) 500 mg PO DAILY 10/11/24 ergocalciferol (vitamin D2) 1,250 mcg (50,000 unit) capsule 1,250 mcg PO QWEEK 10/11/24 atorvastatin 40 mg tablet (Lipitor) 40 mg PO QHS 30 days #30 tabs 10/12/24 Physical Exam Narrative Seen and examined. Patient had headache bilateral mainly in frontal region for about 2 days prior to ED visit. She also complained of lolly shaped visual abnormality/blurry vision and speech abnormality. Headache is much better. Visual abnormality andspeech abnormality has resolved Physical exam General: Alert, Oriented x3, Cooperative HEENT: Atraumatic, PERRLA, EOMI, Normocephalic. Oral: No Gingival or Mucosal Lesions/ Ulcerations Neck: Supple, No JVD, Negative Carotid Bruits Chest wall/Lungs: Air entry diminished in bilateral lung bases. No crepitation/rhonchi Cardiovascular: Regular rate and rhythm, Normal S1,S2, No M/G/R Abdomen: Bowel Sounds Present, Soft, Non Tender, Non-Distended : No dysuria. No renal angle tenderness. No suprapubic tenderness. Extremities: No edema, Capillary Refill Less than 3 Seconds Skin: No rashes, No breakdown Musculoskeletal: No Tenderness to Palpation of Joints or Extremities Neurological: Cranial nerves II-XII grossly intact, DTR 2+/4. No acute focal neurological deficit. NIH scale 0. Psych/Mental Status: Normal Affect, Appropriate. Weight / BMI Weight Weight: 224 lb 8.653 oz Body Mass Index (BMI) 39.7 ABG / Lab / Microbiology Data 10/11/24 17:30 10/11/24 17:30 Laboratory: Laboratory Results - last 24 hr 10/11/24 17:21: POC Glucose 139 H 10/11/24 17:30: WBC 5.8, RBC 4.21, Hgb 13.3, Hct 40.3, MCV 95.7, MCH 31.6, MCHC 33.0, RDW Std Deviation 46.7 H, RDW Coeff of Luisa 13.3, Plt Count 288, MPV 10.9, Immature Gran % (Auto) 0.300, Neut % (Auto) 62.1, Lymph % (Auto) 27.4, Casey % (Auto) 7.1, Eos % (Auto) 2.4, Baso % (Auto) 0.7, Absolute Neuts (auto) 3.6, Absolute Lymphs (auto) 1.59, Nucleated RBC % 0, PT 13.8, INR 1.0, APTT 34.4, Sodium 141, Potassium 4.0, Chloride 106, Carbon Dioxide 24.3, Anion Gap 11, BUN 28 H, Creatinine 0.92, Estim Creat Clear Calc 74.73, Est GFR (MDRD) Non-Af 72, BUN/Creatinine Ratio 30.0 H, Glucose 109 H, Calcium 9.2, Troponin T High Sens 10 10/11/24 19:26: Troponin T Hi Sens 2 Hr 7 10/11/24 22:09: Hemoglobin A1c 5.5, Troponin T Hi Sens 4Hr 7, Serum Folate 10.50, TSH 1.410, Ethyl Alcohol < 10.1 10/12/24 01:33: Troponin T High Sens 6 D 10/12/24 03:50: Troponin T Hi Sens 2 Hr < 6 10/12/24 05:43: Troponin T Hi Sens 4Hr 7, Triglycerides 37, Cholesterol 194, LDLCholesterol, Calc 147, VLDL Cholesterol 7, HDL Cholesterol 40, Cholesterol/HDL Ratio 4.87, Vitamin B12 446 10/12/24 06:00: Urine Opiates Screen NEGATIVE, Ur Oxycodone Screen NEGATIVE, Urine Methadone Screen NEGATIVE, Urine Fentanyl Screen NEGATIVE, Ur BarbituratesScreen NEGATIVE, Ur Phencyclidine Scrn NEGATIVE, Ur Amphetamines Screen NEGATIVE, U Benzodiazepines Scrn NEGATIVE, Urine Cocaine Screen NEGATIVE, U Cannabinoids Screen NEGATIVE Radiography Diagnostic Testing: Radiology Impression Brain CT 10/11/24 17:22 IMPRESSION: No intracranial hemorrhage. No mass effect or midline shift. Reading Location: [facility] Head/Neck CTA 10/11/24 19:10 IMPRESSION: Normal CTA of the head and neck. Reading Location: [id number] Brain MRI 10/12/24 09:00 IMPRESSION: No acute intracranial abnormality. Reading Location: [id number] D/C Instructions Weight Bearing Status: Weight bearing as tolerated Call your doctor if you observe: Fever of 101 or Higher, Coldness, Increased Pain, Numbness or Tingling, Change in Color, Inability to urinate, Inability to have a bowel movement, Shortness of breath, Dizziness, Fainting spells, Swellingin the ankles, Chest pain, Prolonged hiccupping, Increased palpitations (irregular heartbeat) and Calf discomfort DC O2, CPAP, BIPAP Needs Home O2 Discharge instructions: No When: IN 2 WEEKS Meaningful Use Info Meaningful Use Meaningful Use Diagnoses (Choose all that apply): None applicable Discharge Plan Admission Admit Date/Time: 10/11/24 20:51 Primary Reason for Your Visit: Acute stroke ruled out Attending Provider: Merlin Rivers Primary Care Provider: Leigha Wynn NP Consulting Providers: Horacio Lopez; Cyrus Ball; Fay Brukett; Hina Maurice; Mahsa Farmer; Brown Rg; Jazmin Asher; Krzysztof Estrada; Deandre Stinson; Jose Armando Resendiz; Clarissa Easton; Saleem Ac; Lena Mccann; Rudy Calalhan; Bill Matthews; Jose Billingsley; Lei Cabrera; Jorge Park; Crissy Smith; Jaky Soria;Maverick Mitchell Discharge Orders/Prescriptions Prescriptions: New atorvastatin [Lipitor] 40 mg tablet 40 mg PO QHS 30 Days Qty: 30 2RF Continued glucosamine HCl 500 mg tablet 500 mg PO QDAY Rx Instructions: administer with a meal ergocalciferol (vitamin D2) 1,250 mcg (50,000 unit) capsule 1,250 mcg PO QWEEK ascorbic acid (vitamin C) [Acerola C] 500 mg tablet,chewable 500 mg PO DAILY Referrals / Follow Up: Rio Brower MD [Non-Staff -Ordering Privileges] - Within 1 Month (Possible complicated migraine) Leigha Wynn NP, NP-C [Primary Care Provider] - Within 2 Weeks Disposition Disposition (needs filled in before D/C Order can be placed): Home, Self Care Charges/Coding Visit Charges Inpatient E&M: 54934 Disch Hosp >30min 10/12/24 1150 <Electronically signed by Merlin Rivers MD> Cosigner Signature (if applicable): CC: EDGAR Wynn; Dr. Merlin Rivers MD~ Signed [facility] Work Phone: [phone] Discharge summary Author Merlin Rivers [facility] Note Date/Time October 12, 2024 11 :47am [facility] Medical Records Department [address] [place] [id number] Instructions for Home/Discharge Instructions 10/12/24 1141 MR#: [id number] Acct: [id number] Name: SILKE LOPEZ Rep #:[id number] : 1965 58 From: Merlin Turner PCP: EDGAR Long Status:ADM IN O Discharge Instructions DC O2, CPAP, BIPAP needs Home O2 Discharge instructions: No Dressing / Incision Discharge Activity: Return to Normal Activity Weight Bearing Status: Weight bearing as tolerated Dressing / Incision Call your doctor if you observe: Fever of 101 or Higher, Coldness, Increased Pain, Numbness or Tingling, Change in Color, Inability to urinate, Inability to have a bowel movement, Shortness of breath, Dizziness, Fainting spells, Swellingin the ankles, Chest pain, Prolonged hiccupping, Increased palpitations (irregular heartbeat) and Calf discomfort Follow Up Care When: IN 2 WEEKS Test Results: Test results from this visit will be discussed in further detail at your follow- up appointment, if applicable. Discharge Plan Admission Admit Date/Time: 10/11/24 20:51 Primary Reason for Your Visit: Acute stroke ruled out Attending Provider: Merlin Rivers Primary Care Provider: Leigha Wynn NP Consulting Providers: Horacio Lopez; Cyrus Ball; Fay Burkett; Hina Maurice; Mahsa Farmer; Brown Rg; Jazmin Asher; Krzysztof Estrada; Deandre Stinson; Jose Armando Resendiz; Clarissa Easton; Saleem Ac; Lena Mccann; Rudy Callahan; Bill Matthews; Jose Billingsley; Lei Cabrera; Jorge Park; Crissy Smith; Jaky Soria;Maverick Mitchell Discharge Orders/Prescriptions Prescriptions: New atorvastatin [Lipitor] 40 mg tablet 40 mg PO QHS 30 Days Qty: 30 2RF Continued glucosamine HCl 500 mg tablet 500 mg PO QDAY Rx Instructions: administer with a meal ergocalciferol (vitamin D2) 1,250 mcg (50,000 unit) capsule 1,250 mcg PO QWEEK ascorbic acid (vitamin C) [Acerola C] 500 mg tablet,chewable 500 mg PO DAILY Referrals / Follow Up: Rio Brower MD [Non-Staff -Ordering Privileges] - Within 1 Month (Possible complicated migraine) Leigha Wynn NP, [employer] 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-C [Primary Care Provider] - Within 2 Weeks Disposition Disposition (needs filled in before D/C Order can be placed): Home, Self Care 10/12/24 1147<Electronically signed by Merlin Rivers MD>Merlin Rivers MD CC: Hina Maurice; Lena Mccann; EDGAR Wynn; Jose Billingsley; MD Kailyn; Fay Burkett MD; Horacio Lopez MD; Dr. Cyrus Ball MD; Dr. Maverick Mitchell DO; Dr. Brown Rg MD; Dr. Jazmin Asher MD; Dr. Deandre Stinson MD; Dr. Krzysztof Estrada MD; Dr. Jose Armando Resendiz MD; Dr. Saleem Ac DO; Dr. Bill Madrid MD; Dr. Rudy Callahan MD; Dr. Lei Cabrera MD; Dr. Jorge Park MD; Dr. Crissy Smith MD; Clarissa Easton DO; Jaky Soria MD ~ Signed [facility] Work Phone: [phone] Discharge summary [facility] Medical Records Department [address] [place] [id number] Discharge Summary 10/12/24 1147 MR#: [id number] Acct: [id number] Name: SILKE LOPEZ Rep #:[id number] : 1965 58 From: Merlin Turner PCP: EDGAR Long Status:ADM IN O Location: PCU [id number] Providers Date of Admission: 10/11/24 Date of Discharge: 10/12/24 Primary Care Physician: EDGAR Long Consultations 10/11/24 21:43 Consult: Tele-Neurology Routine Consulting Provider: [facility] Reason for Consult: Acute Ischemic Stroke/TIA EMERGENT Consult: No MD Notified: Yes Date Notified: 10/11/24 Time Notified: 23:50 Method of Notification: Answering Service Nursing Unit Staff Notify [facility] of Tele-Neurology Consult: Yes Reason For Visit: TIA VS CVS, WITH VISUAL DISTURBANCE, SLURRED Diagnosis Discharge Diagnosis (1) Brain TIA: Status: Acute Code(s): G45.9 - Transient cerebral ischemic attack, unspecified (2) Slurred speech: Status: Acute Code(s): R47.81 - Slurred speech (3) Headache: Status: Acute Code(s): R51.9 - Headache, unspecified Qualifiers: Headache type: unspecified Headache chronicity pattern: acute headache Intractability: not intractable Qualified Code(s): R51.9 - Headache, unspecified (4) Visual disturbance: Status: Acute Code(s): H53.9 - Unspecified visual disturbance (5) Dehydration: Status: Acute Code(s): E86.0 - Dehydration (6) Obesity (BMI 30-39.9): Status: Acute Code(s): E66.9 - Obesity, unspecified Plan 58-year-old female admitted with visual changes like spots or light flashes. She is also having trouble putting words together/speech difficulties and was hard to understand. She was not complaining of headache. Visual and speech changes resolved. Related to stroke. Symptoms started at 1:30 PM. As per teleneurologist patient still had headache. NIH stroke scale 0. Clinical impression was either TIA versus complicated migraine. No thrombolytic recommendation because of onset amnesia. 1. TIA vs CVA; with transient slurred speech, visual disturbance and headache - Admit to PCU under observation status. Check MRI of the brain to evaluate for evidence of CVA. Check echocardiogram to evaluate LVEF. Start clopidogrel (in light of listed allergy to aspirin) plus statin and check TSH, B12, Folate, HgbA1c, Lipid Profile, UDS and HIEU. Give ondansetron IV prn for nausea and vomiting. Give acetaminophen prn for cgre-ok-hfitylpi (level 1-5/10) pain or fever. Give oxycodone orally prn forsevere (level 6-10/10) pain. Finally, anastacio consult [facility] to see this patient on rounds in the a.m. furtherrecommendations help appreciated advancement. Patient had MRI brain which was reported no acute intracranial abnormality. CTAhead and neck reported normal.. Patient just had echo on June 2024 which was normal right atrium left atrium mildly enlarged. Mild TR PASP 28 mmHg. As per the neurologist stroke unlikely most likely complicated migraine. Patient is discharged home with follow-up with neurologist Fasting profile shows LDL elevated therefore discharged on atorvastatin 40 mg subcu daily. 2. Dehydration; with BUN/creatinine ratio of 30: Received with IV fluid. Dehydration corrected 3. Obesity (class II); with BMI of 39.5 KG per square meter. TSH normal. B12 normal. 4. DM-2; currently not on treatment - ADA diet if patient passes bedside allow evaluation. FSBS q. AC/HS plus SSI. A1c 5.5%. 5 psoriasis - Stable and without evidence of acute flare. 6. PVD - Noted. 9. History of hyperparathyroidism; s/p parathyroidectomy - Noted. 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 11. OA; on glucosamine - Give acetaminophen prn for pain or fever. 12. DVT prophylaxis - Enoxaparin 40 mg sq daily plus SCD's. Discharge medication reconciliation done. Discharge follow-up instructions completed. Discharge process discussed with the patient and all questions wereanswered to patient's satisfaction. Follow with PCP in 1 to 2 weeks Total time spent, exact 35 minutes on discharge meds reconciliation, examination, coordination of care with nurses and ancillary staff, review of imaging and blood test and discussion with the patient on follow-up instructions. Laboratory Results 10/11/24 17:21: POC Glucose 139 H 10/11/24 17:30: WBC 5.8, RBC 4.21, Hgb 13.3, Hct 40.3, MCV 95.7, MCH 31.6, MCHC 33.0, RDW Std Deviation 46.7 H, RDW Coeff of Luisa 13.3, Plt Count 288, MPV 10.9, Immature Gran % (Auto) 0.300, Neut % (Auto) 62.1, Lymph % (Auto) 27.4, Casey % (Auto) 7.1, Eos % (Auto) 2.4, Baso % (Auto) 0.7, Absolute Neuts (auto) 3.6, Absolute Lymphs (auto) 1.59, Nucleated RBC % 0, PT 13.8, INR 1.0, APTT 34.4, Sodium 141, Potassium 4.0, Chloride 106, Carbon Dioxide 24.3, Anion Gap 11, BUN 28 H, Creatinine 0.92, EstimCreat Clear Calc 74.73, Est GFR (MDRD) Non-Af 72, BUN/Creatinine Ratio 30.0 H, Glucose 109 H, Calcium 9.2, Troponin T High Sens 10 10/11/24 19:26: Troponin T Hi Sens 2 Hr 7 10/11/24 22:09: Hemoglobin A1c 5.5, Troponin T Hi Sens 4Hr 7, Serum Folate 10.50, TSH 1.410, Ethyl Alcohol < 10.1 10/12/24 01:33: Troponin T High Sens 6 D 10/12/24 03:50: Troponin T Hi Sens 2 Hr < 6 10/12/24 05:43: Troponin T Hi Sens 4Hr Pending, Triglycerides 37, Cholesterol 194, LDL Cholesterol,Calc 147, VLDL Cholesterol 7, HDL Cholesterol 40, Cholesterol/HDL Ratio 4.87, Vitamin B12 Pending 10/12/24 06:00: Urine Opiates Screen Pending, U Buprenorphine Qual Pending, Ur Oxycodone Screen Pending, Urine Methadone Screen Pending, Urine Fentanyl Screen Pending, Ur Barbiturates Screen Pending,Ur Phencyclidine Scrn Pending, Ur Amphetamines Screen Pending, U Benzodiazepines Scrn Pending, Urine Cocaine Screen Pending, U Cannabinoids Screen Pending Clinical Impression(s) from Imaging Studies Brain CT 10/11/24 17:22 IMPRESSION: No intracranial hemorrhage. No mass effect or midline shift. Reading Location: [facility] Head/Neck CTA 10/11/24 19:10 IMPRESSION: Normal CTA of the head and neck. Reading Location: [id number] Medications at Discharge Home Medications glucosamine HCl 500 mg tablet 500 mg PO QDAY 09/20/24 ascorbic acid (vitamin C) 500 mg chewable tablet (Acerola C) 500 mg PO DAILY 10/11/24 ergocalciferol (vitamin D2) 1,250 mcg (50,000 unit) capsule 1,250 mcg PO QWEEK 10/11/24 atorvastatin 40 mg tablet (Lipitor) 40 mg PO QHS 30 days #30 tabs 10/12/24 Physical Exam Narrative Seen and examined. Patient had headache bilateral mainly in frontal region for about 2 days prior to ED visit. She also complained of lolly shaped visual abnormality/blurry vision and speech abnormality. Headache is much better. Visual abnormality andspeech abnormality has resolved Physical exam General: Alert, Oriented x3, Cooperative HEENT: Atraumatic, PERRLA, EOMI, Normocephalic. Oral: No Gingival or Mucosal Lesions/ Ulcerations Neck: Supple, No JVD, Negative Carotid Bruits Chest wall/Lungs: Air entry diminished in bilateral lung bases. No crepitation/rhonchi Cardiovascular: Regular rate and rhythm, Normal S1,S2, No M/G/R Abdomen: Bowel Sounds Present, Soft, Non Tender, Non-Distended : No dysuria. No renal angle tenderness. No suprapubic tenderness. Extremities: No edema, Capillary Refill Less than 3 Seconds Skin: No rashes, No breakdown Musculoskeletal: No Tenderness to Palpation of Joints or Extremities Neurological: Cranial nerves II-XII grossly intact, DTR 2+/4. No acute focal neurological deficit. NIH scale 0. Psych/Mental Status: Normal Affect, Appropriate. Weight / BMI Weight Weight: 224 lb 8.653 oz Body Mass Index (BMI) 39.7 ABG / Lab / Microbiology Data 10/11/24 17:30 10/11/24 17:30 Laboratory: Laboratory Results - last 24 hr 10/11/24 17:21: POC Glucose 139 H 10/11/24 17:30: WBC 5.8, RBC 4.21, Hgb 13.3, Hct 40.3, MCV 95.7, MCH 31.6, MCHC 33.0, RDW Std Deviation 46.7 H, RDW Coeff of Luisa 13.3, Plt Count 288, MPV 10.9, Immature Gran % (Auto) 0.300, Neut % (Auto) 62.1, Lymph % (Auto) 27.4, Casey % (Auto) 7.1, Eos % (Auto) 2.4, Baso % (Auto) 0.7, Absolute Neuts (auto) 3.6, Absolute Lymphs (auto) 1.59, Nucleated RBC % 0, PT 13.8, INR 1.0, APTT 34.4, Sodium 141, Potassium 4.0, Chloride 106, Carbon Dioxide 24.3, Anion Gap 11, BUN 28 H, Creatinine 0.92, EstimCreat Clear Calc 74.73, Est GFR (MDRD) Non-Af 72, BUN/Creatinine Ratio 30.0 H, Glucose 109 H, Calcium 9.2, Troponin T High Sens 10 10/11/24 19:26: Troponin T Hi Sens 2 Hr 7 10/11/24 22:09: Hemoglobin A1c 5.5, Troponin T Hi Sens 4Hr 7, Serum Folate 10.50, TSH 1.410, Ethyl Alcohol < 10.1 10/12/24 01:33: Troponin T High Sens 6 D 10/12/24 03:50: Troponin T Hi Sens 2 Hr < 6 10/12/24 05:43: Troponin T Hi Sens 4Hr 7, Triglycerides 37, Cholesterol 194, LDLCholesterol, Calc 147, VLDL Cholesterol 7, HDL Cholesterol 40, Cholesterol/HDL Ratio 4.87, Vitamin B12 446 10/12/24 06:00: Urine Opiates Screen NEGATIVE, Ur Oxycodone Screen NEGATIVE, Urine Methadone ScreenNEGATIVE, Urine Fentanyl Screen NEGATIVE, Ur BarbituratesScreen NEGATIVE, Ur Phencyclidine Scrn NEGATIVE, Ur Amphetamines Screen NEGATIVE, U Benzodiazepines Scrn NEGATIVE, Urine Cocaine Screen NEGATIVE, U Cannabinoids Screen NEGATIVE Radiography Diagnostic Testing: Radiology Impression Brain CT 10/11/24 17:22 IMPRESSION: No intracranial hemorrhage. No mass effect or midline shift. Reading Location: [facility] Head/Neck CTA 10/11/24 19:10 IMPRESSION: Normal CTA of the head and neck. Reading Location: [id number] Brain MRI 10/12/24 09:00 IMPRESSION: No acute intracranial abnormality. Reading Location: [id number] D/C Instructions Weight Bearing Status: Weight bearing as tolerated Call your doctor if you observe: Fever of 101 or Higher, Coldness, Increased Pain, Numbness or Tingling, Change in Color, Inability to urinate, Inability to have a bowel movement, Shortness of breath, Dizziness, Fainting spells, Swellingin the ankles, Chest pain, Prolonged hiccupping, Increased palpitations (irregular heartbeat) and Calf discomfort DC O2, CPAP, BIPAP Needs Home O2 Discharge instructions: No When: IN 2 WEEKS Meaningful Use Info Meaningful Use Meaningful Use Diagnoses (Choose all that apply): None applicable Discharge Plan Admission Admit Date/Time: 10/11/24 20:51 Primary Reason for Your Visit: Acute stroke ruled out Attending Provider: Merlin Rivers Primary Care Provider: Leigha Wynn NP Consulting Providers: Horacio Lopez; Cyrus Ball; Fay Burkett; Hina Maurice; Mahsa Farmer; Brown Rg; Jazmin Asher; Krzysztof Estrada; Deandre Stinson; Jose Armando Resendiz; Clarissa Easton; Saleem Ac; Lena Mccann; Rudy Callahan; Bill Matthews; Jose Billingsley; Lei Cabrera; Jorge Park; Crissy Smith; Jaky Soria;Maverick Mitchell Discharge Orders/Prescriptions Prescriptions: New atorvastatin [Lipitor] 40 mg tablet 40 mg PO QHS 30 Days Qty: 30 2RF Continued glucosamine HCl 500 mg tablet 500 mg PO QDAY Rx Instructions: administer with a meal ergocalciferol (vitamin D2) 1,250 mcg (50,000 unit) capsule 1,250 mcg PO QWEEK ascorbic acid (vitamin C) [Acerola C] 500 mg tablet,chewable 500 mg PO DAILY Referrals / Follow Up: Rio Brower MD [Non-Staff -Ordering Privileges] - Within 1 Month (Possible complicated migraine) Leigha Wynn NP, [employer] 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-C [Primary Care Provider] - Within 2 Weeks Disposition Disposition (needs filled in before D/C Order can be placed): Home, Self Care Charges/Coding Visit Charges Inpatient E&M: 11194 Disch Hosp >30min 10/12/24 1150 Cosigner Signature (if applicable): CC: EDGAR Wynn; Dr. Merlin Rivers MD~ Signed [facility]08-16-2025 Discharge summary [facility] Medical Records Department [address] [place] [address] Instructions for Home/Discharge Instructions 10/12/24 1141 MR#: [id number] Acct: [id number] Name: SILKE LOPEZ Rep #:[id number] : 1965 58 From: Merlin Turner PCP: EDGAR Long Status:ADM IN O Discharge Instructions DC O2, CPAP, BIPAP needs Home O2 Discharge instructions: No Dressing / Incision Discharge Activity: Return to Normal Activity Weight Bearing Status: Weight bearing as tolerated Dressing / Incision Call your doctor if you observe: Fever of 101 or Higher, Coldness, Increased Pain, Numbness or Tingling, Change in Color, Inability to urinate, Inability to have a bowel movement, Shortness of breath, Dizziness, Fainting spells, Swellingin the ankles, Chest pain, Prolonged hiccupping, Increased palpitations (irregular heartbeat) and Calf discomfort Follow Up Care When: IN 2 WEEKS Test Results: Test results from this visit will be discussed in further detail at your follow- up appointment, if applicable. Discharge Plan Admission Admit Date/Time: 10/11/24 20:51 Primary Reason for Your Visit: Acute stroke ruled out Attending Provider: Merlin Rivers Primary Care Provider: Leigha Wynn NP Consulting Providers: Horacio Lopez; Cyrus Ball; Fay Burkett; Hina Maurice; Mahsa Farmer; Brown Rg; Jazmin Asher; Krzysztof Estrada; Deandre Stinson; Jose Armando Resendiz; Clarissa Easton; Saleem Ac; Lena Mccann; Rudy Callahan; Bill Matthews; Jose Billingsley; Lei Cabrera; Jorge Park; Crissy Smith; Jaky Soria;Maverick Mitchell Discharge Orders/Prescriptions Prescriptions: New atorvastatin [Lipitor] 40 mg tablet 40 mg PO QHS 30 Days Qty: 30 2RF Continued glucosamine HCl 500 mg tablet 500 mg PO QDAY Rx Instructions: administer with a meal ergocalciferol (vitamin D2) 1,250 mcg (50,000 unit) capsule 1,250 mcg PO QWEEK ascorbic acid (vitamin C) [Acerola C] 500 mg tablet,chewable 500 mg PO DAILY Referrals / Follow Up: Rio Brower MD [Non-Staff -Ordering Privileges] - Within 1 Month (Possible complicated migraine) Leigha Wynn NP, [employer] 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-C [Primary Care Provider] - Within 2 Weeks Disposition Disposition (needs filled in before D/C Order can be placed): Home, Self Care 10/12/24 1147Merlin Rivers MD CC: Hina Maurice; Lena Mccann; PE[employer] CONTROL 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RandC Leigha Wynn; Jose Billingsley; MD Kailyn; Fay Burkett MD; Horacio Lopez MD; Dr. Cyrus Ball MD; Dr. Maverick Mitchell DO; Dr. Brown Rg MD; Dr. Jazmin Asher MD; Dr. Deandre Stinson MD; Dr. Krzysztof Estrada MD; Dr. Jose Armando Resendiz MD; Dr. Saleem Ac DO; Dr. Bill Madrid MD; Dr. Rudy Callahan MD; Dr. Lei Cabrera MD; Dr. Jorge Park MD; Dr.Vivien Luis MD; Clarissa Eatson DO; Jaky Soria MD ~ Signed [facility]08-16-2025 [facility] Medical Records Department [address] [place] [address] Discharge Summary 10/12/24 1147 MR#: [id number] Acct: [id number] Name: SILKE LOPEZ Rep #: [id number] : 1965 58 From: Merlin Rivers MD PCP: EDGAR Long Status:ADM PARKER Location: [place] [address] Providers Date of Admission: 10/11/24 Date of Discharge: 10/12/24 Primary Care Physician: EDGAR Long Consultations 10/11/24 21:43 Consult: Tele-Neurology Routine Consulting Provider: [facility] Reason for Consult: Acute Ischemic Stroke/TIA EMERGENT Consult: No MD Notified: Yes Date Notified: 10/11/24 Time Notified: 23:50 Method of Notification: Answering Service Nursing Unit Staff Notify [facility] of Tele-Neurology Consult: Yes Reason For Visit: TIA VS CVS, WITH VISUAL DISTURBANCE, SLURRED Diagnosis Discharge Diagnosis (1) Brain TIA: Status: Acute Code(s): G45.9 - Transient cerebral ischemic attack, unspecified (2) Slurred speech: Status: Acute Code(s): R47.81 - Slurred speech (3) Headache: Status: Acute Code(s): R51.9 - Headache, unspecified Qualifiers: Headache type: unspecified Headache chronicity pattern: acute headache Intractability: not intractable Qualified Code(s): R51.9 - Headache, unspecified (4) Visual disturbance: Status: Acute Code(s): H53.9 - Unspecified visual disturbance (5) Dehydration: Status: Acute Code(s): E86.0 - Dehydration (6) Obesity (BMI 30-39.9): Status: Acute Code(s): E66.9 - Obesity, unspecified Plan 58-year-old female admitted with visual changes like spots or light flashes. She is also having trouble putting words together/speech difficulties and was hard to understand. She was not complaining of headache. Visual and speech changes resolved. Related to stroke. Symptoms started at 1:30 PM. As per teleneurologist patient still had headache. NIH stroke scale 0. Clinical impression was either TIA versus complicated migraine. No thrombolytic recommendation because of onset amnesia. 1. TIA vs CVA; with transient slurred speech, visual disturbance and headache - Admit to PCU under observation status. Check MRI of the brain to evaluate for evidence of CVA. Check echocardiogram to evaluate LVEF. Start clopidogrel (in light of listed allergy to aspirin) plus statin and check TSH, B12, Folate, HgbA1c, Lipid Profile, UDS and HIEU. Give ondansetron IV prn for nausea and vomiting. Give acetaminophen prn for [id number] (level 1-5/10) pain or fever. Give oxycodone orally prn for severe (level 6-10/10) pain. Finally, we will consult [facility] to see this patient on rounds in the a.m. further recommendations help appreciated advancement. Patient had MRI brain which was reported no acute intracranial abnormality. CTA head and neck reported normal.. Patient just had echo on June 2024 which was normal right atrium left atrium mildly enlarged. Mild TR PASP 28 mmHg. As per the neurologist stroke unlikely most likely complicated migraine. Patient is discharged home with follow-up with neurologist Fasting profile shows LDL elevated therefore discharged on atorvastatin 40 mg subcu daily. 2. Dehydration; with BUN/creatinine ratio of 30: Received with IV fluid. Dehydration corrected 3. Obesity (class II); with BMI of 39.5 KG per square meter. TSH normal. B12 normal. 4. DM-2; currently not on treatment - ADA diet if patient passes bedside allow evaluation. FSBS q. AC/HS plus SSI. A1c 5.5%. 5 psoriasis - Stable and without evidence of acute flare. 6. PVD - Noted. 9. History of hyperparathyroidism; s/p parathyroidectomy - Noted. 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 11. OA; on glucosamine - Give acetaminophen prn for pain or fever. 12. DVT prophylaxis - Enoxaparin 40 mg sq daily plus SCD's. Discharge medication reconciliation done. Discharge follow-up instructions completed. Discharge process discussed with the patient and all questions were answered to patient's satisfaction. Follow with PCP in 1 to 2 weeks Total time spent, exact 35 minutes on discharge meds reconciliation, examination, coordination of care with nurses and ancillary staff, review of imaging and blood test and discussion with the patient on follow-up instructions. Laboratory Results 10/11/24 17:21: POC Glucose 139 H 10/11/24 17:30: WBC 5.8, RBC 4.21, Hgb 13.3, Hct 40.3, MCV 95.7, MCH 31.6, MCHC 33.0, RDW Std Deviation 46.7 H, RDW Coeff of Luisa 13.3, Plt Count 288, MPV 10.9, Immature Gran % (Auto) 0.300, Neut % (Auto) 62.1, Lymph % (Auto) 27.4, Casey % (Auto) 7.1, Eos % (Auto) 2.4, Baso % (Auto) 0.7, Absolute Neuts (auto) 3.6, Absolute Lymphs (auto) 1.59, Nucleated RBC % 0, PT 13.8, INR 1.0, APTT 34.4, Sodium 141, Potassium 4.0, Chloride 106, Carbon Dioxide 24.3, Anion Gap 11, BUN 28 H, Creatinine 0.92, Estim Creat Clear Calc 74.73, Est GFR (MDRD) Non-Af 72, BUN/Creat (more content not included)...[facility]08-16-2025 History and physical note Author Maverick Abdalla [facility] Note Date/Time October 12, 2024 5: 36am [facility] Medical Records Department [address] [place] [address] H&P Exam - Hospitalist 10/11/242013 MR#: [id number] Acct: [id number] Name: SILKE LOPEZ Rep #:[id number] : 1965 58 From: Maverick Jennings DO PCP: Leigha Wynn, [employer] CONTR[employer] 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 HPI Narrative SILKE LOPEZ, is a 58 F with a past medical history of obesity (class II); with BMI of 39.5 this admission, chronic lower extremity dermatitis with ulceration, psoriasis, PVD, history of DM-2; currently not on treatment, history of hyperparathyroidism; s/p parathyroidectomy, thyroid eye disease, history of iodine allergy and OA; on glucosamine who presents to [facility] complaining of slurred speech and visual changes. Mrs. Lopez reports her symptoms began approximately 1:30 PM earlier today while she was at the library when she began to have visual disturbance with what she describes as a "lolly-like" shape that seemed to come from the Right of her visual field followed by a ~7/10 headache that began on the Right-side of her head. She then drove herself home and when she saw her when he noticed abnormal speech which made it difficult to understand her so he decided to bringher in for further evaluation and treatment for presumed CVA. She states her visual disturbance and slurred speech have resolved and her headache has moved to the Left-side of her head and is currently ~2/10. She denies history of TIA/CVA, head trauma, similar previous episodes, recent illness or recent medication changes. She also denies related fever, chills, runny nose, sore throat, ear pain, SOB, cough, chest pain, palpitations, heart racing, dysuria, hematuria or rash but she does admit to recent headache. In the ER she underwent a head CT without contrast that revealed no ICH, mass effect or midline shift followed by CTA of the head and neck with IV contrast that showed common origin of Left common carotid artery and Right innominate artery with no evidence of aneurysm or dissection complicated by laboratory evidence of Dehydration; with BUN/creatinine ratio of 30 with clinical evidence of TIA vs CVA; with transient visual disturbance with slurred speech and she was then admitted to the PCU under observation status for ongoing care for a stay that isexpected to expected to be less than 2 midnights. [facility] Medical History Wears glasses Arthritis Scoliosis Non-smoker History of edema Thyroid eye disease Primary hyperparathyroidism Hyperparathyroidism Screening for osteoporosis Home Medications ?Medication ?Instructions ?Recorded ?Last Taken ?Type glucosamine HCl 500 mg tablet 500 mg PO QDAY 09/20/24 10/11/24 13:30 History 500 mg ascorbic acid (vitamin C) 500 mg 500 mg PO DAILY 10/1110/11/24 13:30 History chewable tablet (Acerola C) ergocalciferol (vitamin D2) 1,250 1,250 mcg PO QWEEK 0 10/11/24 10/05/24 History mcg (50,000 unit) capsule Allergy/AdvReac Type Severity Reaction Status Date / Time aspirin (ASA) Allergy Intermediate Swelling Verified 09/20/24 15:52 Iodinated Contrast Media Allergy Mild Hives Verified 09/20/24 15:52 (contrast dye - iodinated) levofloxacin (From Levaquin) Allergy Other Verified 09/20/24 15:52 naproxen Allergy Other Verified 09/20/24 15:52 Penicillins Allergy Other Verified 09/20/24 15:52 Family History Father Cancer Prostate Sister Cancer cholangiocarcinoma- Bile duct Grandfather Cancer Prostate Surgical History S/P parathyroidectomy S/P D&C (status post dilation and curettage) S/P appendectomy Social History household members: spouse current occupational status: employed current occupation: [employer] Smoking Status: Never smoker alcohol intake: never substance use type: does not use seatbelt use: always do you feel safe at home: Yes additional social history: - [employer]- Retired ROS ROS Narrative Review of Systems: Constitutional: Patient denies fever or chills. Eyes: Patient admits to visual disturbance with spots or lights. ENT: Patient denies runny nose, sore throat or ear pain. Resp: Patient denies SOB or cough. CV: Patient denies chest pain, palpitations or heart racing. GI: Patient denies abdominal pain, nausea, vomiting, diarrhea or constipation. : Patient denies dysuria or hematuria. MSK: Patient denies arthralgias or myalgias. Skin: Patient has no evidence of rash, abscess, wounds or jaundice. Psych: Patient denies symptoms of uncontrolled depression or anxiety. Neuro: Patient admits to headache with slurred speech and visual disturbance as per HPI. Allergy: Patient denies lip swelling, tongue swelling or urticaria. Hematology: Patient denies easy bleeding or easy bruisability. Endocrinology: Patient denies polyuria, polydipsia, polyphagia or heat/cold intolerance. 14 point ROS otherwise negative except for positives noted above in HPI. Vital Signs Vital Signs Vital Signs: 10/11/24 17:16 10/11/24 17:22 10/11/24 17:22 Temperature 98.1 F Temperature Source Temporal Pulse Rate 70 59 L Respiratory Rate 16 16 Blood Pressure 101/53 L 109/64 Blood Pressure Mean 69 79 Pulse Ox 100 99 99 Oxygen Delivery Method Room Air Room Air Room Air 10/11/24 17:52 10/11/24 18:52 10/11/24 19:30 Temperature Temperature Source Pulse Rate 58 L 57 L 49 L Respiratory Rate 16 16 18 Blood Pressure 114/73 105/53 L 106/50 L Blood Pressure Mean 86 70 68 Pulse Ox 99 98 97 Oxygen Delivery Method Room Air Room Air Room Air 10/11/24 19:30 Temperature 98.2 F Temperature Source Pulse Rate 49 L Respiratory Rate 18 Blood Pressure 106/50 L Blood Pressure Mean 68 Pulse Ox 97 Oxygen Delivery Method Weight Weight: 223 lb Body Mass Index (BMI) 39.4 Physical Exam Const alert, oriented x3 and no apparent distress Constitutional Narrative: Obese with nontoxic appearance. General Appearance: cooperative HEENT normocephalic, head/scalp atraumatic, hearing grossly normal bilaterally and moist oral mucous membranes Eyes PERRL and EOMs intact bilaterally Neck no lymphadenopathy, supple and no JVD Resp normal respiratory effort, no retractions, no use of accessory muscles and clearto auscultation bilaterally Cardio regular rate and regular rhythm GI normal to inspection, nondistended, normoactive bowel sounds, soft to palpation,non-tender and non-distended GI Narrative: Obese. Extremity normal to inspection, full ROM and no clubbing, cyanosis or edema Skin Skin Narrative: Patient has no evidence of rash, abscess, wounds or jaundice. Neuro oriented x3, CN's II-XII intact bilaterally, moves all extremities and no focal motor deficits Sensorium / Orientation: awake, alert, oriented to person, oriented to place andoriented to time Speech: speech normal Psych affect normal Results Medical Records Data Attestation: I reviewed the patient's medical records Lab / Micro Data Attestation: I reviewed the patient's lab results. 10/11/24 17:30 10/11/24 17:30 Labs: Laboratory Results - last 24 hr 10/11/24 17:21: POC Glucose 139 H 10/11/24 17:30: WBC 5.8, RBC 4.21, Hgb 13.3, Hct 40.3, MCV 95.7, MCH 31.6, MCHC 33.0, RDW Std Deviation 46.7 H, RDW Coeff of Luisa 13.3, Plt Count 288, MPV 10.9, Immature Gran % (Auto) 0.300, Neut % (Auto) 62.1, Lymph % (Auto) 27.4, Casey % (Auto) 7.1, Eos % (Auto) 2.4, Baso % (Auto) 0.7, Absolute Neuts (auto) 3.6, Absolute Lymphs (auto) 1.59, Nucleated RBC % 0, PT 13.8, INR 1.0, APTT 34.4, Sodium 141, Potassium 4.0, Chloride 106, Carbon Dioxide 24.3, Anion Gap 11, BUN 28 H, Creatinine 0.92, Estim Creat Clear Calc 74.73, Est GFR (MDRD) Non-Af 72, BUN/Creatinine Ratio 30.0 H, Glucose 109 H, Calcium 9.2, Troponin T High Sens 10 10/11/24 19:26: Troponin T Hi Sens 2 Hr 7 Rhythm Strip Rhythm Strip: Sinus Rhythm Rate: 62 Ectopy: None Imaging Radiology Impression Brain CT 10/11/24 17:22 IMPRESSION: No intracranial hemorrhage. No mass effect or midline shift. Reading Location: [facility] Assessment & Plan Assessment/Plan (1) Brain TIA: (2) Slurred speech: (3) Headache: QUALIFIERS: Headache chronicity pattern: acute headache Headache type: unspecified Intractability: not intractable Qualified Code(s): R51.9 - Headache, unspecified (4) Visual disturbance: (5) Dehydration: (6) Obesity (BMI 30-39.9): PLAN: Plan 1. TIA vs CVA; with transient slurred speech, visual disturbance and headache - Admit to PCU under observation status. Check MRI of the brain to evaluate for evidence of CVA. Check echocardiogram to evaluate LVEF. Start clopidogrel (in light of listed allergy to aspirin) plus statin and check TSH, B12, Folate, HgbA1c, Lipid Profile, UDS and HIEU. Give ondansetron IV prn for nausea and vomiting. Give acetaminophen prn for pixy-cx-gimdxcmj (level 1-5/10) pain or fever. Give oxycodone orally prn for severe (level 6-10/10) pain. Finally, anastacio consult [facility] to see this patient on rounds in the a.m. furtherrecommendations help appreciated advancement. 2. Dehydration; with BUN/creatinine ratio of 30 complicating #1 - Gently volumeresuscitate and recheck renal indices in AM to confirm improvement. 3. Obesity (class II); with BMI of 39.5 this admission compounding #1 & #2 - Weight loss will be recommended. Check TSH. 4. DM-2; currently not on treatment - ADA diet if patient passes bedside allow evaluation. FSBS q. AC/HS plus SSI. Check HgbA1c to objectively evaluate quality of diabetic control. 5. History of iodine allergy - Noted as she was premedicated with methylprednisolone IV plus prn IV diphenhydramine. 6. History of chronic lower extremity dermatitis with ulceration - Noted with patient having no rash or swelling in her LE's at this time. 7. Psoriasis - Stable and without evidence of acute flare. 8. PVD - Noted. 9. History of hyperparathyroidism; s/p parathyroidectomy - Noted. 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 11. OA; on glucosamine - Give acetaminophen prn for pain or fever. 12. DVT prophylaxis - Enoxaparin 40 mg sq daily plus SCD's. Total time: Approximately (but not less than) 70 minutes. Charges/Coding Visit Charges OBSV E&M: 10703 Observ/hosp same date L2 10/12/24 0536 <Electronically signed by Maverick Mitchell DO> Cosigner Signature (if applicable): CC: EDGAR Wynn; Dr. Maverick Mitchell DO~ Signed [facility] Work Phone: [phone] History and physical note [facility] Medical Records Department [address] [place] [address] H&P Exam - Hospitalist 10/11/242013 MR#: [id number] Acct: [id number] Name: SILKE LOPEZ Rep #:[id number] : 1965 58 From: Maverick Jennings DO PCP: EDGAR Long Status:ADM IN O Location: [address] 1 HPI - General General Date of Admission: 10/11/24 Date of Service: 10/11/24 Chief Complaint: Slurred Speech and Visual Changes. HPI Narrative SILKE LOPEZ, is a 58 F with a past medical history of obesity (class II); with BMI of 39.5 this admission, chronic lower extremity dermatitis with ulceration, psoriasis, PVD, history of DM-2; currently not on treatment, history of hyperparathyroidism; s/p parathyroidectomy, thyroid eye disease, history of iodine allergy and OA; on [facility] speech and visual changes. Mrs. Lopez reports her symptoms began approximately 1:30 PM earlier today while she was at the library when she began to have visual disturbance with what she describes as a "lolly-like" shape thatseemed to come from the Right of her visual field followed by a ~7/10 headache that began on the Right-side of her head. She then drove herself home and when she saw her when he noticed abnormal speech which made it difficult to understand her so he decided to bringher in for further evaluation and treatment for presumed CVA. She states her visual disturbance and slurred speech have resolved and her headache has moved to the Left-side of her head and is currently ~2/10. She denies history of TIA/CVA, head trauma, similar previous episodes, recent illness or recent medication changes. She also denies related fever, chills, runny nose, sore throat, ear pain, SOB, cough, chest pain, palpitations, heart racing, dysuria, hematuria or rash but she does admit to recent headache. In the ER she underwent a head CT without contrast that revealed no ICH, mass effect or midline shift followed by CTA of the head and neck with IV contrast that showed common origin of Left common carotid artery and Right innominate artery with no evidence of aneurysm or dissection complicated by laboratoryevidence of Dehydration; with BUN/creatinine ratio of 30 with clinical evidence of TIA vs CVA; withtransient visual disturbance with slurred speech and she was then admitted to the PCU under observation status for ongoing care for a stay that isexpected to expected to be less than 2 midnights. [facility] Medical History Wears glasses Arthritis Scoliosis Non-smoker History of edema Thyroid eye disease Primary hyperparathyroidism Hyperparathyroidism Screening for osteoporosis Home Medications ?Medication ?Instructions ?Recorded ?Last Taken ?Type glucosamine HCl 500 mg tablet 500 mg PO QDAY 09/20/24 10/11/24 13:30 History 500 mg ascorbic acid (vitamin C) 500 mg 500 mg PO DAILY 10/1110/11/24 13:30 History chewable tablet (Acerola C) ergocalciferol (vitamin D2) 1,250 1,250 mcg PO QWEEK 0 10/11/24 10/05/24 History mcg (50,000 unit) capsule Allergy/AdvReac Type Severity Reaction Status Date / Time aspirin (ASA) Allergy Intermediate Swelling Verified 09/20/24 15:52 Iodinated Contrast Media Allergy Mild Hives Verified 09/20/24 15:52 (contrast dye - iodinated) levofloxacin (From Levaquin) Allergy Other Verified 09/20/24 15:52 naproxen Allergy Other Verified 09/20/24 15:52 Penicillins Allergy Other Verified 09/20/24 15:52 Family History Father Cancer Prostate Sister Cancer cholangiocarcinoma- Bile duct Grandfather Cancer Prostate Surgical History S/P parathyroidectomy S/P D&C (status post dilation and curettage) S/P appendectomy Social History household members: spouse current occupational status: employed current occupation: [employer] Smoking Status: Never smoker alcohol intake: never substance use type: does not use seatbelt use: always do you feel safe at home: Yes additional social history: - [employer]- Retired ROS ROS Narrative Review of Systems: Constitutional: Patient denies fever or chills. Eyes: Patient admits to visual disturbance with spots or lights. ENT: Patient denies runny nose, sore throat or ear pain. Resp: Patient denies SOB or cough. CV: Patient denies chest pain, palpitations or heart racing. GI: Patient denies abdominal pain, nausea, vomiting, diarrhea or constipation. : Patient denies dysuria or hematuria. MSK: Patient denies arthralgias or myalgias. Skin: Patient has no evidence of rash, abscess, wounds or jaundice. Psych: Patient denies symptoms of uncontrolled depression or anxiety. Neuro: Patient admits to headache with slurred speech and visual disturbance as per HPI. Allergy: Patient denies lip swelling, tongue swelling or urticaria. Hematology: Patient denies easy bleeding or easy bruisability. Endocrinology: Patient denies polyuria, polydipsia, polyphagia or heat/cold intolerance. 14 point ROS otherwise negative except for positives noted above in HPI. Vital Signs Vital Signs Vital Signs: 10/11/24 17:16 10/11/24 17:22 10/11/24 17:22 Temperature 98.1 F Temperature Source Temporal Pulse Rate 70 59 L Respiratory Rate 16 16 Blood Pressure 101/53 L 109/64 Blood Pressure Mean 69 79 Pulse Ox 100 99 99 Oxygen Delivery Method Room Air Room Air Room Air 10/11/24 17:52 10/11/24 18:52 10/11/24 19:30 Temperature Temperature Source Pulse Rate 58 L 57 L 49 L Respiratory Rate 16 16 18 Blood Pressure 114/73 105/53 L 106/50 L Blood Pressure Mean 86 70 68 Pulse Ox 99 98 97 Oxygen Delivery Method Room Air Room Air Room Air 10/11/24 19:30 Temperature 98.2 F Temperature Source Pulse Rate 49 L Respiratory Rate 18 Blood Pressure 106/50 L Blood Pressure Mean 68 Pulse Ox 97 Oxygen Delivery Method Weight Weight: 223 lb Body Mass Index (BMI) 39.4 Physical Exam Const alert, oriented x3 and no apparent distress Constitutional Narrative: Obese with nontoxic appearance. General Appearance: cooperative HEENT normocephalic, head/scalp atraumatic, hearing grossly normal bilaterally and moist oral mucous membranes Eyes PERRL and EOMs intact bilaterally Neck no lymphadenopathy, supple and no JVD Resp normal respiratory effort, no retractions, no use of accessory muscles and clearto auscultation bilaterally Cardio regular rate and regular rhythm GI normal to inspection, nondistended, normoactive bowel sounds, soft to palpation,non-tender and non-distended GI Narrative: Obese. Extremity normal to inspection, full ROM and no clubbing, cyanosis or edema Skin Skin Narrative: Patient has no evidence of rash, abscess, wounds or jaundice. Neuro oriented x3, CN's II-XII intact bilaterally, moves all extremities and no focal motor deficits Sensorium / Orientation: awake, alert, oriented to person, oriented to place andoriented to time Speech: speech normal Psych affect normal Results Medical Records Data Attestation: I reviewed the patient's medical records Lab / Micro Data Attestation: I reviewed the patient's lab results. 10/11/24 17:30 10/11/24 17:30 Labs: Laboratory Results - last 24 hr 10/11/24 17:21: POC Glucose 139 H 10/11/24 17:30: WBC 5.8, RBC 4.21, Hgb 13.3, Hct 40.3, MCV 95.7, MCH 31.6, MCHC 33.0, RDW Std Deviation 46.7 H, RDW Coeff of Luisa 13.3, Plt Count 288, MPV 10.9, Immature Gran % (Auto) 0.300, Neut % (Auto) 62.1, Lymph % (Auto) 27.4, Casey % (Auto) 7.1, Eos % (Auto) 2.4, Baso % (Auto) 0.7, Absolute Neuts (auto) 3.6, Absolute Lymphs (auto) 1.59, Nucleated RBC % 0, PT 13.8, INR 1.0, APTT 34.4, Sodium 141, Potassium 4.0, Chloride 106, Carbon Dioxide 24.3, Anion Gap 11, BUN 28 H, Creatinine 0.92, EstimCreat Clear Calc 74.73, Est GFR (MDRD) Non-Af 72, BUN/Creatinine Ratio 30.0 H, Glucose 109 H, Calcium 9.2, Troponin T High Sens 10 10/11/24 19:26: Troponin T Hi Sens 2 Hr 7 Rhythm Strip Rhythm Strip: Sinus Rhythm Rate: 62 Ectopy: None Imaging Radiology Impression Brain CT 10/11/24 17:22 IMPRESSION: No intracranial hemorrhage. No mass effect or midline shift. Reading Location: [facility] Assessment & Plan Assessment/Plan (1) Brain TIA: (2) Slurred speech: (3) Headache: QUALIFIERS: Headache chronicity pattern: acute headache Headache type: unspecified Intractability: not intractable Qualified Code(s): R51.9 - Headache, unspecified (4) Visual disturbance: (5) Dehydration: (6) Obesity (BMI 30-39.9): PLAN: Plan 1. TIA vs CVA; with transient slurred speech, visual disturbance and headache - Admit to PCU under observation status. Check MRI of the brain to evaluate for evidence of CVA. Check echocardiogram to evaluate LVEF. Start clopidogrel (in light of listed allergy to aspirin) plus statin and check TSH, B12, Folate, HgbA1c, Lipid Profile, UDS and HIEU. Give ondansetron IV prn for nausea and vomiting. Give acetaminophen prn for [id number] (level 1-5/10) pain or fever. Give oxycodone orally prn forsevere (level 6-10/10) pain. Finally, anastacio consult [facility] to see this patient on rounds in the a.m. furtherrecommendations help appreciated advancement. 2. Dehydration; with BUN/creatinine ratio of 30 complicating #1 - Gently volumeresuscitate and recheck renal indices in AM to confirm improvement. 3. Obesity (class II); with BMI of 39.5 this admission compounding #1 & #2 - Weight loss will be recommended. Check TSH. 4. DM-2; currently not on treatment - ADA diet if patient passes bedside allow evaluation. FSBS q. AC/HS plus SSI. Check HgbA1c to objectively evaluate quality of diabetic control. 5. History of iodine allergy - Noted as she was premedicated with methylprednisolone IV plus prn IVdiphenhydramine. 6. History of chronic lower extremity dermatitis with ulceration - Noted with patient having no rash or swelling in her LE's at this time. 7. Psoriasis - Stable and without evidence of acute flare. 8. PVD - Noted. 9. History of hyperparathyroidism; s/p parathyroidectomy - Noted. 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 11. OA; on glucosamine - Give acetaminophen prn for pain or fever. 12. DVT prophylaxis - Enoxaparin 40 mg sq daily plus SCD's. Total time: Approximately (but not less than) 70 minutes. Charges/Coding Visit Charges OBSV E&M: 46462 Observ/hosp same date L2 10/12/24 0536 Cosigner Signature (if applicable): CC: EDGAR Wynn; Dr. Maverick Mitchell DO~ Signed [facility]08-15-2025 Discharge summary Author Ashwin Bauman [facility] Note Date/Time October 11, 2024 8: 19pm [facility] Medical Records Department [address] [place] [address] Emergency Department Summary 10/11/24 MR#: [id number] Acct: [id number] Name: SILKE LOPEZ Rep #:[id number] : 1965 58 From: Ashwin Bauman MD PCP: EDGAR Long Status:REG ER Location: ED HPI History of Present Illness Chief Complaint: Headache Informant: patient and spouse/S.O. Onset/Context/Timing Onset: Today Context: Sudden Onset (Last known well around 1:30 PM.) Timing: Intermittent Quality and Location: Positive for Slurred Speech, Expressive Aphasia and - (Visual changes) Current Severity: Mild Maximum Severity: Moderate Narrative Narrative: 58-year-old female history of prediabetes. States she was at the library [id number] she started getting visual changes where she said she thought she saw like either spots or lights. When she got home her said her speech was off she was having trouble putting her words together it was hard to understand her. She is not complaining of a headache. Speech is returned and the visual changes have resolved. She has never had a stroke before. She is on no blood thinners. She denies any recent head trauma. She does have an iodine dye allergy Prior similar symptoms: No Recent Illness/Hospitalization: No PFSH PFSH Medical History Wears glasses Arthritis Scoliosis Non-smoker History of edema Thyroid eye disease Primary hyperparathyroidism Hyperparathyroidism Screening for osteoporosis Home Medications ?Medication ?Instructions ?Recorded ?Last Taken ?Type glucosamine HCl 500 mg tablet 500 mg PO QDAY 09/20/24 Unknown History ergocalciferol (vitamin D2) 1,250 1,250 mcg PO QWEEK 0 10/11/24 Unknown History mcg (50,000 unit) capsule Allergy/AdvReac Type Severity Reaction Status Date / Time aspirin (ASA) Allergy Intermediate Swelling Verified 09/20/24 15:52 Iodinated Contrast Media Allergy Mild Hives Verified 09/20/24 15:52 (contrast dye - iodinated) levofloxacin (From Levaquin) Allergy Other Verified 09/20/24 15:52 naproxen Allergy Other Verified 09/20/24 15:52 Penicillins Allergy Other Verified 09/20/24 15:52 Family History Father Cancer Prostate Sister Cancer cholangiocarcinoma- Bile duct Grandfather Cancer Prostate Surgical History S/P parathyroidectomy S/P D&C (status post dilation and curettage) S/P appendectomy Social History household members: spouse current occupational status: employed current occupation: [employer] Smoking Status: Never smoker alcohol intake: never substance use type: does not use seatbelt use: always do you feel safe at home: Yes additional social history: - [employer]- Retired ROS ROS ED ROS Narrative Denies recent illness. Headache. Constitutional Constitutional ED: Denies chills or fever(s) Eyes Eyes: Denies blurry vision ENT ENT ED: Denies ear pain Cardiovascular Cardiovascular: Denies chest pain Respiratory/Chest Respiratory/Chest: Denies cough or dyspnea Gastrointestinal Gastrointestinal: Denies abdominal pain, constipation, diarrhea, melena, nausea or vomiting Genitourinary Genitourinary ED: Denies dysuria or hematuria Musculoskeletal Musculoskeletal: Denies arthralgias or back pain Integumentary Denies abscess Neurologic Neurologic: Reports headache(s); Denies paresthesias or weakness Psychiatric Psychiatric: Denies anxiety Endocrine Endocrinology: Denies polydipsia or polyphagia Hematologic/Lymphatic Hematologic/Lymphatic: Denies easy bleeding, easy bruising or lymphadenopathy Allergic/Immunologic Allergic/Immunologic ED: Denies mouth swelling, urticaria or other EXAM Physical Exam Narrative Exam Narrative: 58-year-old female in triage room 1 I was called out to see. Vital signs are stable afebrile. sitting in triage room with her. HEENT exam pupils round react light. Extra motions are intact. No facial droop. Normal speech. No trauma. Neck nontender no lymphadenopathy. Lungs clear to auscultation. Heart regular rhythm rate about 70 no murmur. Chest wall ribs nontender. Abdomen soft nontender. Moving all 4 extremities. 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 Normal dorsi plantarflexion. Back nontender. Neurologically she is awake alert. Answering questions following commands. Her NIH score is at worst a 1. Currently she has no facial droop. She has normal motor strength. Normal sensation. Her speech may not be totally back to normal. But is easily understood and currently there is no dysarthria. Const Vital Signs: 10/11/24 17:16 10/11/24 17:22 10/11/24 17:22 Temperature 98.1 F Temperature Source Temporal Pulse Rate 70 59 L Respiratory Rate 16 16 Blood Pressure 101/53 L 109/64 Blood Pressure Mean 69 79 Pulse Ox 100 99 99 Oxygen Delivery Method Room Air Room Air Room Air 10/11/24 17:52 10/11/24 18:52 10/11/24 19:30 Temperature Temperature Source Pulse Rate 58 L 57 L 49 L Respiratory Rate 16 16 18 Blood Pressure 114/73 105/53 L 106/50 L Blood Pressure Mean 86 70 68 Pulse Ox 99 98 97 Oxygen Delivery Method Room Air Room Air Room Air 10/11/24 19:30 Temperature 98.2 F Temperature Source Pulse Rate 49 L Respiratory Rate 18 Blood Pressure 106/50 L Blood Pressure Mean 68 Pulse Ox 97 Oxygen Delivery Method Positive well nourished and well developed; Negative for cachectic, contracturesor unkempt General Appearance ED: well developed; Negative for unkempt, cachectic, contractures or NAD Nutritional Appearance: Negative for cachectic HEENT Reports moist mucous membranes Eyes PERRL and EOMs intact bilaterally General Eye ED: Negative for pale conjunctiva Neck no lymphadenopathy, supple and no JVD General: Negative for tenderness Chest Wall inspection of chest normal and palpation of chest normal Resp normal respiratory effort and clear to auscultation bilaterally Cardio no murmurs Rate: regular rate Rhythm: regular rhythm GI normal to inspection, nondistended, normoactive bowel sounds, soft to palpation,non-tender, non-distended and no masses Auscultation: normoactive bowel sounds Palpation: Negative for tender or guarding Back/Spine no CVA tenderness General Back: Negative for CVA tenderness Cervical Spine: Negative for cervical spine tenderness Thoracic Spine / Upper Back: Negative for thoracic spinal tenderness Lumbar Spine / Lower Back: Negative for lumbar spinal tenderness Extremity normal to inspection General Extremety ED: Negative for deformity, edema or tenderness General Extremity: Negative for deformity or edema Neuro oriented x3 and CN's II-XII intact bilaterally Sensorium / Orientation: alert, oriented to person, oriented to place and oriented to time; Negative for orientation impaired, confused, lethargic or stuporous Speech: Negative for speech normal Motor Exam: strength 5/5 throughout Psych mental status grossly normal Appearance: Negative for unkempt Mood & Affect: Negative for depressed, anxious or tearful Skin no wounds General Skin Exam: Negative for jaundice Lesions: no lesions Rashes: no rashes MDM MDM MDM Narrative Medical decision making narrative: 58-year-old female had visual change and then developed dysarthria. Currently her symptoms have mainly resolved and maybe mild slurred speech currently. NIH at worst is a 1. Onset of symptoms around 130 which is around 3 to 4 hours ago. Patient was made a stroke team protocol. She be taken to CAT scan. I will geta CTA head and neck but she has not IV iodine contrast allergy so we will pretreat her before we get that done. Repeat exam patient is doing well at 6:34 PM. I had lengthy discussion with herand her family. Her exam currently is normal her NIH is 0. Her speech is completely back to normal. Most likely this was a TIA. Possibility this could have been headache causing her symptoms also. The initial CT does not show any acute process. CTA is pending due to her contrast allergy we did pretreat her. She will be admitted once I get the CTA back. She will be given Toradol for herheadache. History & Record Review Discussion w/independent historian: Patient Additional record(s) reviewed:: Prior inpatient record, Prior outpatient record,Prior ED visit and Prior labs Lab Data Attestation: I reviewed the patient's lab results. Lab results narrative: CBC shows a white count of 5 H&H 13 and 40. Platelets 288. Electrolytes show sodium 141. Gap 11. BUN 28 creatinine 0.9. Glucose 109. Initial troponin is 10. CT brain no acute abnormality CTA read pending. CTA head and neck was read as normal by the radiologist. Labs: Laboratory Results - last 24 hr 10/11/24 10/11/24 10/11/24 17:21 17:30 19:26 WBC 5.8 RBC 4.21 Hgb 13.3 Hct 40.3 MCV 95.7 MCH 31.6 MCHC 33.0 RDW Std Deviation 46.7 H RDW Coeff of Luisa 13.3 Plt Count 288 MPV 10.9 Immature Gran % (Auto) 0.300 Neut % (Auto) 62.1 Lymph % (Auto) 27.4 Casey % (Auto) 7.1 Eos % (Auto) 2.4 Baso % (Auto) 0.7 Absolute Neuts (auto) 3.6 Absolute Lymphs (auto) 1.59 Nucleated RBC % 0 PT 13.8 INR 1.0 APTT 34.4 Sodium 141 Potassium 4.0 Chloride 106 Carbon Dioxide 24.3 Anion Gap 11 BUN 28 H Creatinine 0.92 Estim Creat Clear Calc 74.73 Est GFR (MDRD) Non-Af 72 BUN/Creatinine Ratio 30.0 H Glucose 109 H Calcium 9.2 Troponin T High Sens 10 Troponin T Hi Sens 2 Hr 7 POC Glucose 139 H Radiography Diagnostic Testing: Clinical Impression(s) from Imaging Studies Brain CT 10/11/24 17:22 IMPRESSION: No intracranial hemorrhage. No mass effect or midline shift. Reading [facility] Head/Neck CTA 10/11/24 19:10 IMPRESSION: Normal CTA of the head and neck. Reading Location: [id number] Rhythm Strip Rhythm Strip: Sinus Rhythm Rate: 62 Ectopy: None EKG Initial EKG: Attestation: I personally reviewed and interpreted this EKG as follows: Interpretation: Sinus Rhythm and No Acute Injury Pattern Comments: Normal sinus rhythm rate of 62 no acute signs of NH no ischemia nor dysrhythmia unchanged from prior EKG from April. Discharge Plan Dx/Rx/DC Orders Clinical Impression: Brain TIA, Slurred speech, Headache Disposition Disposition: Acute Care Hospital [facility] NIHSS NIHSS 1a. Level of Consciousness: 0 - Alert; keenly responsive 1b. LOC Questions: 0 - Answers BOTH questions correctly 1c. LOC Commands: 0 - Performs BOTH tasks correctly 2. Best Gaze: 0 - Normal 3. Visual: 0 - No visual loss 4. Facial Palsy: 0 - Normal symmetrical movements 5a. Left Arm: 0 - No drift; arm holds 90 (or 45) degrees for full 10 seconds 5b. Right Arm: 0 - No drift; arm holds 90 (or 45) degrees for full 10 seconds 6a. Left Le - No drift; leg holds 30-degree position for full 5 seconds 6b. Right Le - No drift; leg holds 30-degree position for full 5 seconds 7. Limb Ataxia: 0 - Absent 8. Sensory: 0 - Normal; no sensory loss 9. Best Language: 1 - [id number] aphasia; 10. Dysarthria: 0 - Normal 11. Extinction and Inattention: 0 - No abnormality Total: 1 Stroke Questions Stroke Team Activated: Yes Reviewed Inclusion/Exclusion criteria: Yes Informed the patient and/or family of all associated risks, benefits, & alternatives to IV Thrombolytic Therapy. Patient and/or family voluntarily consent to the administration of IV Thrombolytic Therapy: Yes What to do if you have Problems For any increased pain, shortness of breath, bleeding, nausea or vomiting, chestpain, or any unexpected problems, contact your Primary Care Provider. Call [facility] ([phone]) or report to the closest Emergency Room. Call 911 if necessary. 10/11/242018 <Electronically signed by Ashwin Bauman MD> Cosigner Signature (if applicable): CC: EDGAR Wynn ~ Signed [facility] Work Phone: [phone]) 654-845708-15-2025 Discharge summary [facility] Medical Records Department [address] [place] [address] Emergency Department Summary 10/11/24 MR#: [id number] Acct: [id number] Name: SILKE LOPEZ Rep #:[id number] : 1965 58 From: Ashwin Bauman MD PCP: EDGAR Long Status:REG ER Location: ED HPI History of Present Illness Chief Complaint: Headache Informant: patient and spouse/S.O. Onset/Context/Timing Onset: Today Context: Sudden Onset (Last known well around 1:30 PM.) Timing: Intermittent Quality and Location: Positive for Slurred Speech, Expressive Aphasia and - (Visual changes) Current Severity: Mild Maximum Severity: Moderate Narrative Narrative: 58-year-old female history of prediabetes. States she was at the library [id number] she started getting visual changes where she said she thought she saw like either spots or lights. When she got homeher said her speech was off she was having trouble putting her words together it was hard to understand her. She is not complaining of a headache. Speech is returned and the visual changes have resolved. She has never had a stroke before. She is on no blood thinners. She denies any recent head trauma. She does have an iodine dye allergy Prior similar symptoms: No Recent Illness/Hospitalization: No PFSH PFSH Medical History Wears glasses Arthritis Scoliosis Non-smoker History of edema Thyroid eye disease Primary hyperparathyroidism Hyperparathyroidism Screening for osteoporosis Home Medications ?Medication ?Instructions ?Recorded ?Last Taken ?Type glucosamine HCl 500 mg tablet 500 mg PO QDAY 09/20/24 Unknown History ergocalciferol (vitamin D2) 1,250 1,250 mcg PO QWEEK 0 10/11/24 Unknown History mcg (50,000 unit) capsule Allergy/AdvReac Type Severity Reaction Status Date / Time aspirin (ASA) Allergy Intermediate Swelling Verified 09/20/24 15:52 Iodinated Contrast Media Allergy Mild Hives Verified 09/20/24 15:52 (contrast dye - iodinated) levofloxacin (From Levaquin) Allergy Other Verified 09/20/24 15:52 naproxen Allergy Other Verified 09/20/24 15:52 Penicillins Allergy Other Verified 09/20/24 15:52 Family History Father Cancer Prostate Sister Cancer cholangiocarcinoma- Bile duct Grandfather Cancer Prostate Surgical History S/P parathyroidectomy S/P D&C (status post dilation and curettage) S/P appendectomy Social History household members: spouse current occupational status: employed current occupation: [employer] Smoking Status: Never smoker alcohol intake: never substance use type: does not use seatbelt use: always do you feel safe at home: Yes additional social history: - [employer]- Retired ROS ROS ED ROS Narrative Denies recent illness. Headache. Constitutional Constitutional ED: Denies chills or fever(s) Eyes Eyes: Denies blurry vision ENT ENT ED: Denies ear pain Cardiovascular Cardiovascular: Denies chest pain Respiratory/Chest Respiratory/Chest: Denies cough or dyspnea Gastrointestinal Gastrointestinal: Denies abdominal pain, constipation, diarrhea, melena, nausea or vomiting Genitourinary Genitourinary ED: Denies dysuria or hematuria Musculoskeletal Musculoskeletal: Denies arthralgias or back pain Integumentary Denies abscess Neurologic Neurologic: Reports headache(s); Denies paresthesias or weakness Psychiatric Psychiatric: Denies anxiety Endocrine Endocrinology: Denies polydipsia or polyphagia Hematologic/Lymphatic Hematologic/Lymphatic: Denies easy bleeding, easy bruising or lymphadenopathy Allergic/Immunologic Allergic/Immunologic ED: Denies mouth swelling, urticaria or other EXAM Physical Exam Narrative Exam Narrative: 58-year-old female in triage room 1 I was called out to see. Vital signs are stable afebrile. sitting in triage room with her. HEENT exam pupils round react light. Extra motions are intact. No facial droop. Normal speech. No trauma. Neck nontender no lymphadenopathy. Lungs clear to auscultation. Heart regular rhythm rate about 70 no murmur. Chest wall ribs nontender. Abdomen soft nontender. Moving all 4 extremities. 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 Normal dorsi plantarflexion. Back nontender. Neurologically she is awake alert. Answering questions following commands. Her NIH score is at worst a 1. Currently she has no facial droop. She has normal motor strength. Normal sensation. Her speech may not be totally back to normal. But is easily understood and currently there is no dysarthria. Const Vital Signs: 10/11/24 17:16 10/11/24 17:22 10/11/24 17:22 Temperature 98.1 F Temperature Source Temporal Pulse Rate 70 59 L Respiratory Rate 16 16 Blood Pressure 101/53 L 109/64 Blood Pressure Mean 69 79 Pulse Ox 100 99 99 Oxygen Delivery Method Room Air Room Air Room Air 10/11/24 17:52 10/11/24 18:52 10/11/24 19:30 Temperature Temperature Source Pulse Rate 58 L 57 L 49 L Respiratory Rate 16 16 18 Blood Pressure 114/73 105/53 L 106/50 L Blood Pressure Mean 86 70 68 Pulse Ox 99 98 97 Oxygen Delivery Method Room Air Room Air Room Air 10/11/24 19:30 Temperature 98.2 F Temperature Source Pulse Rate 49 L Respiratory Rate 18 Blood Pressure 106/50 L Blood Pressure Mean 68 Pulse Ox 97 Oxygen Delivery Method Positive well nourished and well developed; Negative for cachectic, contracturesor unkempt General Appearance ED: well developed; Negative for unkempt, cachectic, contractures or NAD Nutritional Appearance: Negative for cachectic HEENT Reports moist mucous membranes Eyes PERRL and EOMs intact bilaterally General Eye ED: Negative for pale conjunctiva Neck no lymphadenopathy, supple and no JVD General: Negative for tenderness Chest Wall inspection of chest normal and palpation of chest normal Resp normal respiratory effort and clear to auscultation bilaterally Cardio no murmurs Rate: regular rate Rhythm: regular rhythm GI normal to inspection, nondistended, normoactive bowel sounds, soft to palpation,non-tender, non-distended and no masses Auscultation: normoactive bowel sounds Palpation: Negative for tender or guarding Back/Spine no CVA tenderness General Back: Negative for CVA tenderness Cervical Spine: Negative for cervical spine tenderness Thoracic Spine / Upper Back: Negative for thoracic spinal tenderness Lumbar Spine / Lower Back: Negative for lumbar spinal tenderness Extremity normal to inspection General Extremety ED: Negative for deformity, edema or tenderness General Extremity: Negative for deformity or edema Neuro oriented x3 and CN's II-XII intact bilaterally Sensorium / Orientation: alert, oriented to person, oriented to place and oriented to time; Negative for orientation impaired, confused, lethargic or stuporous Speech: Negative for speech normal Motor Exam: strength 5/5 throughout Psych mental status grossly normal Appearance: Negative for unkempt Mood & Affect: Negative for depressed, anxious or tearful Skin no wounds General Skin Exam: Negative for jaundice Lesions: no lesions Rashes: no rashes MDM MDM MDM Narrative Medical decision making narrative: 58-year-old female had visual change and then developed dysarthria. Currently her symptoms have mainly resolved and maybe mild slurred speech currently. NIH at worst is a 1. Onset of symptoms around 130 which is around 3 to 4 hours ago. Patient was made a stroke team protocol. She be taken to CAT scan. I will geta CTA head and neck but she has not IV iodine contrast allergy so we will pretreat her before we get that done. Repeat exam patient is doing well at 6:34 PM. I had lengthy discussion with herand her family. Her exam currently is normal her NIH is 0. Her speech is completely back to normal. Most likely this wasa TIA. Possibility this could have been headache causing her symptoms also. The initial CT does notshow any acute process. CTA is pending due to her contrast allergy we did pretreat her. She will beadmitted once I get the CTA back. She will be given Toradol for herheadache. History & Record Review Discussion w/independent historian: Patient Additional record(s) reviewed:: Prior inpatient record, Prior outpatient record,Prior ED visit and Prior labs Lab Data Attestation: I reviewed the patient's lab results. Lab results narrative: CBC shows a white count of 5 H&H 13 and 40. Platelets 288. Electrolytes show sodium 141. Gap 11. BUN 28 creatinine 0.9. Glucose 109. Initial troponin is 10. CT brain no acute abnormality CTA read pending. CTA head and neck was read as normal by the radiologist. Labs: Laboratory Results - last 24 hr 10/11/24 10/11/24 10/11/24 17:21 17:30 19:26 WBC 5.8 RBC 4.21 Hgb 13.3 Hct 40.3 MCV 95.7 MCH 31.6 MCHC 33.0 RDW Std Deviation 46.7 H RDW Coeff of Luisa 13.3 Plt Count 288 MPV 10.9 Immature Gran % (Auto) 0.300 Neut % (Auto) 62.1 Lymph % (Auto) 27.4 Casey % (Auto) 7.1 Eos % (Auto) 2.4 Baso % (Auto) 0.7 Absolute Neuts (auto) 3.6 Absolute Lymphs (auto) 1.59 Nucleated RBC % 0 PT 13.8 INR 1.0 APTT 34.4 Sodium 141 Potassium 4.0 Chloride 106 Carbon Dioxide 24.3 Anion Gap 11 BUN 28 H Creatinine 0.92 Estim Creat Clear Calc 74.73 Est GFR (MDRD) Non-Af 72 BUN/Creatinine Ratio 30.0 H Glucose 109 H Calcium 9.2 Troponin T High Sens 10 Troponin T Hi Sens 2 Hr 7 POC Glucose 139 H Radiography Diagnostic Testing: Clinical Impression(s) from Imaging Studies Brain CT 10/11/24 17:22 IMPRESSION: No intracranial hemorrhage. No mass effect or midline shift. Reading [facility] Head/Neck CTA 10/11/24 19:10 IMPRESSION: Normal CTA of the head and neck. Reading Location: [facility] Rhythm Strip Rhythm Strip: Sinus Rhythm Rate: 62 Ectopy: None EKG Initial EKG: Attestation: I personally reviewed and interpreted this EKG as follows: Interpretation: Sinus Rhythm and No Acute Injury Pattern Comments: Normal sinus rhythm rate of 62 no acute signs of NH no ischemia nor dysrhythmia unchangedfrom prior EKG from April. Discharge Plan Dx/Rx/DC Orders Clinical Impression: Brain TIA, Slurred speech, Headache Disposition Disposition: Acute Care Hospital [facility] NIHSS NIHSS 1a. Level of Consciousness: 0 - Alert; keenly responsive 1b. LOC Questions: 0 - Answers BOTH questions correctly 1c. LOC Commands: 0 - Performs BOTH tasks correctly 2. Best Gaze: 0 - Normal 3. Visual: 0 - No visual loss 4. Facial Palsy: 0 - Normal symmetrical movements 5a. Left Arm: 0 - No drift; arm holds 90 (or 45) degrees for full 10 seconds 5b. Right Arm: 0 - No drift; arm holds 90 (or 45) degrees for full 10 seconds 6a. Left Le - No drift; leg holds 30-degree position for full 5 seconds 6b. Right Le - No drift; leg holds 30-degree position for full 5 seconds 7. Limb Ataxia: 0 - Absent 8. Sensory: 0 - Normal; no sensory loss 9. Best Language: 1 - [id number]-pa-[id number] aphasia; 10. Dysarthria: 0 - Normal 11. Extinction and Inattention: 0 - No abnormality Total: 1 Stroke Questions Stroke Team Activated: Yes Reviewed Inclusion/Exclusion criteria: Yes Informed the patient and/or family of all associated risks, benefits, & alternatives to IV Thrombolytic Therapy. Patient and/or family voluntarily consent to the administration of IV ThrombolyticTherapy: Yes What to do if you have Problems For any increased pain, shortness of breath, bleeding, nausea or vomiting, chestpain, or any unexpected problems, contact your Primary Care Provider. Call [facility] ([phone]) or report tothe closest Emergency Room. Call 911 if necessary. 10/11/242018 Cosigner Signature (if applicable): CC: EDGAR Wynn ~ Signed [facility]08-15-2025 Radiology Diagnostic study note [facility] Imaging Services [address] [place] [address] STROKE CTA Head AND Neck W/Con MR#: [id number] Acct: [id number] Name: SILKE LOPEZ Rep #: [id number] : 1965 F 58 From: [facility] kavita Bonner MD PCP: EDGAR Long Status: REG ER Study:STROKE CTA Head AND Neck W/Con Date of Exam: 10/11/24 Exam# [id number] Ordering Dr: Олег Bauman MD PROCEDURE: STROKE CTA HEAD AND NECK W/CON 10/11/2024 REASON FOR EXAM: STROKELIKE SYMPTOMS SLURRED SPEECH. TECHNIQUE: STROKE CTA HEAD AND NECK W/CON Multiplanar Sagittal and Coronal images were obtained. 3D and MIP post processing was performed. CONTRAST: Isovue 370 VOLUME: 80 mL One or more dose reduction techniques were used (e.g., Automated exposure control, adjustment of the mA and/or kV according to patient size, use of iterative reconstruction technique). RADIATION DOSE SUMMARY: DLP: 1506.98 mGycm COMPARISON: None. FINDINGS: CTA HEAD: Widely patent intracranial arterial vasculature. No large vessel occlusion, flow-limiting stenosis,saccular aneurysm, or vascular malformation identified. Relatively hypoplastic right DONNA A1 segment compared to the left,anatomic variant. Patent anterior communicating artery. CTA NECK: Common origin of left common carotid and right innominate artery. Cervical carotid and codominant vertebral arteries are widely patent, normal in course and caliber. No aneurysm or dissection. CT/STROKE CTA Head AND Neck W/Con IMPRESSION: Normal CTA of the head and neck. Reading Location: [id number] CC: PEST CONTROL 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Star Wynn; Dr. Ashwin Bauman MD ~ Window Display Designer: Signed [facility]08-15-2025 Radiology Diagnostic study note [facility] Imaging Services [address] [place] [address] STROKE Brain/Head without Cont MR#: [id number] Acct: [id number] Name: SILKE LOPEZ Rep #: [id number] : 1965 F 58 From: Luigi Benito MD PCP: EDGAR Long Status: REG ER Study:STROKE Brain/Head without Cont Date of Exam: 10/11/24 Exam# [id number] Ordering Dr: Олег Bauman MD PROCEDURE: STROKE BRAIN/HEAD WITHOUT CONT 10/11/2024 REASON FOR EXAM: NEURO DEFICIT, ACUTE, STROKE SUSPECTED TECHNIQUE: STROKE BRAIN/HEAD WITHOUT CONT Coronal and Sagittal reconstruction series were provided. One or more dose reduction techniques were used (e.g., Automated exposure control, adjustment of the mA and/or kV according to patient size, use of iterative reconstruction technique. RADIATION DOSE SUMMARY: CTDlvol: 45 mGy DLP: 813 mGycm COMPARISON: None available. FINDINGS: There is no extra-axial or intra-axial intracranial hemorrhage. No mass effect or midline shift is seen. The ventricles, sulci, and cisterns are normal in size and shape for the patient's age. There is normal wolf-white matter differentiation. The posterior fossa is grossly unremarkable. The skull is unremarkable. Visualized paranasal sinuses are clear. The mastoid air cells show normal translucency. CT/STROKE Brain/Head without Cont IMPRESSION: No intracranial hemorrhage. No mass effect or midline shift. Reading Location: [facility] CC: PEST CONTROL 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Star Wynn; Dr. Ashwin Bauman MD ~ Window Display Designer: Signed [facility]07-25-2025 Evaluation note* Diagnosis Onset Date Resolution Status Admit Date Endometrial hyperplasia with out atypia, simple acute September 20, 2024 3:48pm Enlarged uterus acute August 3:48pm S/P parathyroidectomy acute Aug 3:48pm Obesity chronic September 20 3:48pm Brain TIA acute October 11, 2 025 8:51pm Dehydration acute October 11, 2024 8:51pm Headache acute October 11, 2 025 8:51pm Obesity (BMI 30-39.9) acute Sep 8:51pm Slurred speech acute September 8:51pm Visual disturbance acute October 11, 2024 8:51pm [facility] Work Phone: 1(902) 104-366307-25-2025 Evaluation note* Diagnosis Onset Date Resolution Status Admit Date Endometrial hyperplasia with out atypia, simple acute September 20, 2024 3:48pm Enlarged uterus acute August 3:48pm S/P parathyroidectomy acute Aug 3:48pm Obesity chronic September 20 3:48pm Brain TIA acute October 11, 2 025 8:51pm Obesity (BMI 30-39.9) acute Sep 8:51pm Slurred speech acute September 8:51pm Headache resolved October 11, 2 025 8:51pm Visual disturbance resolved October 11, 2024 8:51pm Dehydration inactive October 11, 2024 8:51pm Migraine with aura acute October 21, 2024 10:05am [facility] Work Phone: 1(245) 827-573907-25-2025 Evaluation note* Diagnosis Onset Date Resolution Status Admit Date Endometrial hyperplasia with out atypia, simple acute September 20, 2024 3:48pm Enlarged uterus acute August 3:48pm S/P parathyroidectomy acute Aug 3:48pm Obesity chronic September 20 3:48pm Brain TIA acute October 11, 2 025 8:51pm Obesity (BMI 30-39.9) acute Sep 8:51pm Slurred speech acute September 8:51pm Headache resolved October 11, 2 025 8:51pm Visual disturbance resolved October 11, 2024 8:51pm Dehydration inactive October 11, 2024 8:51pm Brain TIA acute October 21, 2 025 10:05am Endometrial hyperplasia with out atypia, simple acute October 21 10:05am Enlarged uterus acute October 212024 10:05am Obesity (BMI 30-39.9) acute Sep 10:05am Postmenopausal bleeding acute A ug2024 10:05am Pre-op evaluation acute October 21, 2024 10:05am S/P parathyroidectomy acute Sep 10:05am Obesity chronic October 21, 025 10:05am [facility] Work Phone: 1([phone]) 596-142707-25-2025 Evaluation note* Diagnosis Onset Date Resolution Status Admit Date Endometrial hyperplasia without atypia, simple acute August 3:48pm Enlarged uterus acute August 3:48pm S/P parathyroidectomy acute Aug 3:48pm Obesity chronic September 20 3:48pm Brain TIA acute October 11, 2 025 8:51pm Obesity (BMI 30-39.9) acute Sep 8:51pm Slurred speech acute September 8:51pm Headache resolved October 11, 2 025 8:51pm Visual disturbance resolved October 11, 2024 8:51pm Dehydration inactive October 11, 2024 8:51pm Brain TIA acute October 21, 10:05am Endometrial hyperplasia without atypia, simple acute October 212024 10:05am Enlarged uterus acute October 212024 10:05am Obesity (BMI 30-39.9) acute Sep 10:05am Postmenopausal bleeding acute A ug2024 10:05am Pre-op evaluation acute October 21, 2024 10:05am S/P parathyroidectomy acute Sep 10:05am Obesity chronic October 21, 2 025 10:05am H/O total hysterectomy with bilateral salpingo-oophorectomy (BSO) November 19, 2024 acute December 03, 2024 11:15am Ventral hernia without obstruction or gangrene acute December 05, 2024 1:23pm [facility] Work Phone: 1(880) 218-326304-15-2025 Evaluation note* Diagnosis Onset Date Resolution Status Admit Date S/P parathyroidectomy acute May 8:48am [facility] Work Phone: 1(434) 550-851504-15-2025 Evaluation note* Diagnosis Onset Date Resolution Status Admit Date S/P parathyroidectomy acute May 8:48am Endometrial hyperplasia with out atypia, simple acute September 20, 2024 3:48pm Enlarged uterus acute August 3:48pm S/P parathyroidectomy acute Aug 3:48pm Obesity chronic September 20 3:48pm [facility] Work Phone: 1(679) 920-580804-08-2025 Consult note Author Victorino Elias [facility] Note Date/Time June 04, 2024 11:3 5am [facility] Medical Records Department [address] [place] [address] Anesthesia Postop Eval I 06/04/241133 MR#: [id number] Acct: [id number] Name: SILKE LOPEZ Rep #:[id number] : 1965 58 From: Victorino ZAVALA PCP: Leigha Wynn NP-C Status:REG SD C Y Race: C Location: [place] [address] Anesthesia: Postop Eval I Current Vital Signs [...] document: Postop Eval 1 completed: Yes 06/04/241134 <Electronically signed by Victorino Elias CRNA> Date _ Victorino Elias CRNA Cosigner Signature: Date CC: ~ Signed [facility] Work Phone: 1(346) 392-143304-08-2025 Consult note [facility] Medical Records Department [address] [place] [address] Anesthesia Postop Eval I 06/04/24 1134 MR#: [id number] Acct: [id number] Name: MARIA EUGENIAHARMONY Rep #:[id number] : 1965 58 From: Victorino ZAVALA PCP: Leigha Wynn PEST CONTROL 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-C Status:REG SD C Y Race: C Location: [place] [address] Anesthesia: Postop Eval I Current Vital Signs [...] document: Postop Eval 1 completed: Yes 06/04/24 113 MANAGER INTEGRATION> Date _ Victorino Elias MANAGER INTEGRATION Cosigner Signature: Date CC: ~ Signed [facility]04-08-2025 History and physical note Author Errol Adams [facility] Note Date/Time June 04, 2024 7:17 am [facility] Medical Records Department [address] [place] [address] History & Physical Exam 06/04/24 0713 MR#: [id number] Acct: [id number] Name: SILKE LOPEZ Rep #:[id number] : 1965 58 From: Errol Turner PCP: MARION LongC Status:REG SD C Location: [place] [address] History and Physical Date of Admission: 06/04/24 Date of Service: 05/01/24 MR#: [id number] Acct: [id number] Name: SILKE LOPEZ Rep #: [id number] : 1965 Provider: Dr. Errol Adams MD Age/Sex: 58/F Location: [facility] Status: Signed Intake Vital Signs 03/19/2507:43 05/02/2507:20 [...] EDGAR Wynn; Dr. Errol Adams MD~ Signed [facility] Work Phone: 1(596) 339-782404-08-2025 Consult note Author Amado Alvarez [facility] Note Date/Time June 04, 2024 7:03 am [facility] Medical Records Department [address] [place] [address] Pre-Anesthesia Evaluation 06/04/24621 MR#: [id number] Acct: [id number] Name: SILKE LOPEZ Rep #:[id number] : 1965 58 From: Amado Alvarez MD PCP: MARION LongC Status:REG SD C Y Race: C Location: [place] [address] ASA Classification* ASA Classification ASA Classification: 3 [...] frozen section Anesthesia History Anesthesia History - tripe finisher: Anesthesia History - tripe finisher Hx Hospitalization No 05/21/24 11:11 Any Problems [...] sips of water?: No PONV PONV - tripe finisher: PONV - tripe finisher Female Yes 05/21/24 11:11 HX of Motion [...] 05/01/24 08:20 Respiratory Assessment Respiratory Assessment - tripe finisher: Respiratory Tract Infection Hx - tripe finisher Hx Respiratory Tract Infection No 05/21/24 11:11 STOP Sleep Apnea STOP Sleep Apnea - tripe finisher: STOP Sleep Apnea - tripe finisher Hx Hypertension No 05/21/24 11:11 Hx Sleep [...] Tobacco Use History Tobacco Use History - tripe finisher: Tobacco Use History - tripe finisher Tobacco Use Smoking Status Never smoker 05/21/24 11:11 Hx Tobacco Use No 05/21/24 11:11 Years Smoking Packs Smoked per Day Smoking Cessation Date was within the last 15 years Hx Smoking Cessation Date Hx Smoking Cessation Counseling Hematologic Medial History Hematologic Hx - tripe finisher: 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 Hx of Blood Transfusion No 05/21/24 11:11 [...] confused, unrespo /Reproduction History /Reproductive History - tripe finisher: /Reproductive Hx- tripe finisher Hx Now No 05/21/24 11:11 Gestational Age [...] by Amado connolly MD> Date _ Amado lAvarez MD Cosigner Signature: Date CC: ~ Signed [facility] Work Phone: 1(284) 288-583704-08-2025 History and physical note [facility] Medical Records Department [address] [place] [address] History & Physical Exam 06/04/24 0713 MR#: [id number] Acct: [id number] Name: SILKE LOPEZ Rep #:[id number] : 1965 58 From: Errol Turner PCP: EDGAR Long Status:REG SD C Location: [place] [address] History and Physical Date of Admission: 06/04/24 Date of Service: 05/01/24 MR#: [id number] Acct: [id number] Name: SILKE LOPEZ Rep #: [id number] : 1965 Provider: Dr. Errol Adams MD Age/Sex: 58/F Location: [facility] Status: Signed Intake Vital Signs 03/19/2507:43 05/02/2507:20 [...] again to the 20s despite daily supplementation [id number]. Contacted Endo and advised to continue present dose. Procedure details and postprocedure expectations reviewed. All questions answered. Consents confirmed. Preop PTH noted. Proceed to OR for parathyroidectomy w intraop PTH monitoring as described above. 06/04/24716 Cosign Signature (if applicable): CC: EDGAR Wynn; Dr. Errol Adams MD~ Signed [facility]04-08-2025 [facility] Medical Records Department [address] [place] [address] History Physical Exam 06/04/24 07 MR#: [id number] Acct: [id number] Name: SILKE LOPEZ Rep #: [id number] : 1965 58 From: Errol Adams MD PCP: EDGAR Long Status:[facility] Location: [place] [address] History and Physical Date of Admission: 06/04/24 Date of Service: 05/01/24 MR#: [id number] Acct: [id number] Name: SILKE LOPEZ Rep #: [id number] : 1965 Provider: Dr. Errol Adams MD Age/Sex: 58/F Location: [facility] Status: Signed Intake Vital Signs 03/19/2507:43 05/02/2507:20 [...] spouse current occupational status: employed current occupation: [employer] Smoking Status: Never smoker alcohol intake: never [...] Hair loss, heat intol (more content not included)...[facility]04-08-2025 Consult note [facility] Medical Records Department [address] [place] [address] Pre-Anesthesia Evaluation 06/04/24 0622 MR#: [id number] Acct: [id number] Name: SILKE LOPEZ Rep #:[id number] : 1965 58 From: Amado Alvarez MD PCP: EDGAR Long Status:REG SD C Y Race: C Location: [place] [address] ASA Classification* ASA Classification ASA Classification: 3 [...] frozen section Anesthesia History Anesthesia History - tripe finisher: Anesthesia History - tripe finisher Hx Hospitalization No 05/21/24 11:11 Any Problems [...] sips of water?: No PONV PONV - tripe finisher: PONV - tripe finisher Female Yes 05/21/24 11:11 HX of Motion [...] 05/01/24 08:20 Respiratory Assessment Respiratory Assessment - tripe finisher: Respiratory Tract Infection Hx - tripe finisher Hx Respiratory Tract Infection No 05/21/24 11:11 STOP Sleep Apnea STOP Sleep Apnea - tripe finisher: STOP Sleep Apnea - tripe finisher Hx Hypertension No 05/21/24 11:11 Hx Sleep [...] Tobacco Use History Tobacco Use History - tripe finisher: Tobacco Use History - tripe finisher Tobacco Use Smoking Status Never smoker 05/21/24 11:11 Hx Tobacco Use No 05/21/24 11:11 Years Smoking Packs Smoked per Day Smoking Cessation Date was within the last 15 years Hx Smoking Cessation Date Hx Smoking Cessation Counseling Hematologic Medial History 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 06/04/24 0703 mohsen HAUSER> Date _ Amado Alvarez MD Cosigner Signature: Date CC: ~ Signed [facility]01-21-2025 Evaluation note* Diagnosis Onset Date Resolution Status Admit Date Primary hyperparathyroidism acute March 19, 2024 8:42am Screening for osteoporosis acute March 19, 2024 8:42am Thyroid eye disease acute 2024 8:42am Hyperparathyroidism resolved 2024 8:42am Primary hyperparathyroidism acute May 01, 2024 8:01am [facility] Work Phone: 1(625) 154-635201-21-2025 Evaluation note* Diagnosis Onset Date Resolution Status Admit Date Primary hyperparathyroidism acute March 19, 2024 8:42am Screening for osteoporosis acute March 19, 2024 8:42am Thyroid eye disease acute 2024 8:42am Hyperparathyroidism resolved 2024 8:42am Primary hyperparathyroidism acute May 01, 2024 8:01am S/P parathyroidectomy acute May 8:48am [facility] Work Phone: 1([phone]) 566-747807-16-2024 Telephone encounter Note* Telephone Encounter - Leigha Richmond RN - 09/12/2023 9:03 AM EDT S: Pt called [facility] d/t Symptoms/Concerns: lump on stomach Provider: james daigle B: BALBIR RN attempted to call patient A No contact Pt last seen 02/27/2020 R: Left VM for pt to call back with any further questions or concerns. Reason for Disposition Message left on identified voicemail Protocols used: No Contact or Duplicate Contact [id number] Miscellaneous Notes* Telephone Encounter - Leigha Richmond RN - 09/12/2023 9:03 AM EDT S: Pt called [facility] d/t Symptoms/Concerns: lump on stomach Provider: james daigle B: BALBIR RN attempted to call patient A No contact Pt last seen 02/27/2020 R: Left VM for pt to call back with any further questions or concerns. Reason for Disposition Message left on identified voicemail Protocols used: No Contact or Duplicate Contact [id number] documented in this [facility]STri[facility] for [facility] (narrative)No reason for referral information availableWMercy Health St. [facility] Work Phone: Summary Purpose Family History No Family History Records Found Relationship Condition Age at Onset Recorded Date/T ange father Malignant neoplasm Unknown sister Malignant neoplasm Unknown grandfather Malignant neoplasm Unknown Advance Directives No Advanced Directives Records FoundDocuments on File Type Date Recorded Patient Unified Communications Architect Expl anation Advance Directives and Living Will Power of Bone Char Kiln Tender Latest Code Status on File Code Status Date Activated Date Inactivated Comments Full Code 04/07/2017 4:49 PM 04/09/2017 1:49 PM Advance Directive Response Recorded Date/ Time Living Will No May 21, 2024 11:11am Do you have a Healthcare Power of Bone Char Kiln Tender? No May 21, 2024 11:11am Advance Directive Response Recorded Date/ Time Do you have a Healthcare Power of Bone Char Kiln Tender? No October 11, 2024 5:45pm Advance Directive Response Recorded Date/ Time Do you have a Healthcare Power of Bone Char Kiln Tender? No October 11, 2024 10:02pm Advance Directive Response Recorded Date/ Time Do you have a Healthcare Power of Bone Char Kiln Tender? No October 11, 2024 10:02pm Do you have a Healthcare Power of Bone Char Kiln Tender? No November 05, 2024 1:07pm Assessments Diagnosis Cough Chief Complaint and Reason [...] 8 :42am Primary hyperparathyroidism May 01 8:01am S/P parathyroidectomy June 11, 2024 8 [...] 48pm Obesity September 20, 2024 3:48 pm Chief Complaint Admit Date ABNORMAL EKG July 15, 2024 12:58 pm LABS September 03, 2024 11:54 am discuss hysterectomy September 20, 2024 3:4 8pm TIA VS CVS, WITH VISUAL DISTURBANCE, SLU RRED October 11, 2024 8:51pm Reason for Visit Admit Date Endometrial hyperplasia without atypia, simple September 20, 2024 3:48pm Enlarged uterus September 20, 2024 3:48 pm S/P parathyroidectomy September 20, 2024 3: 48pm Obesity September 20, 2024 3:48 pm Brain TIA October 11, 2024 8: 51pm Dehydration October 11, 2024 8: 51pm Headache October 11, 2024 8: 51pm Obesity (BMI 30-39.9) October 11, 2024 8:51pm Slurred speech October 11, 2024 8: 51pm Visual disturbance October 11, 2024 8: 51pm Chief Complaint Admit Date ABNORMAL EKG July 15, 2024 12:58 pm LABS September 03, 2024 11:54 am discuss hysterectomy September 20, 2024 3:4 8pm TIA VS CVS, WITH VISUAL DISTURBANCE, SLU RRED October 11, 2024 8:51pm TIA VS CVS, WITH VISUAL DISTURBANCE, SLU RRED October 12, 2024 11:47am Chief Complaint Admit Date ABNORMAL EKG July 15, 2024 12:58 pm LABS September 03, 2024 11:54 am discuss hysterectomy September 20, 2024 3:4 8pm TIA VS CVS, WITH VISUAL DISTURBANCE, SLU RRED October 11, 2024 8:51pm TIA VS CVS, WITH VISUAL DISTURBANCE, SLU RRED October 12, 2024 11:47am TRHBSO Cysto October 21, 2024 10 :05am Reason for Visit Admit Date Endometrial hyperplasia without atypia, simple September 20, 2024 3:48pm Enlarged uterus September 20, 2024 3:48 pm S/P parathyroidectomy September 20, 2024 3: 48pm Obesity September 20, 2024 3:48 pm Brain TIA October 11, 2024 8: 51pm Obesity (BMI 30-39.9) October 11, 2024 8:51pm Slurred speech October 11, 2024 8: 51pm Headache October 11, 2024 8: 51pm Visual disturbance October 11, 2024 8: 51pm Dehydration October 11, 2024 8: 51pm Migraine with aura October 21, 2024 10 :05am Chief Complaint Admit Date LABS September 03, 2024 11:54 am discuss hysterectomy September 20, 2024 3:4 8pm TIA VS CVS, WITH VISUAL DISTURBANCE, SLU RRED October 11, 2024 8:51pm TIA VS CVS, WITH VISUAL DISTURBANCE, SLU RRED October 12, 2024 11:47am TRHBSO Cysto October 21, 2024 10 :05am PATTEL INT LABS November 19, 2024 8:15am PATTEL INT LABS November 19, 2024 10:02am Reason for Visit Admit Date Endometrial hyperplasia without atypia, simple September 20, 2024 3:48pm Enlarged uterus September 20, 2024 3:48 pm S/P parathyroidectomy September 20, 2024 3: 48pm Obesity September 20, 2024 3:48 pm Brain TIA October 11, 2024 8: 51pm Obesity (BMI 30-39.9) October 11, 2024 8:51pm Slurred speech October 11, 2024 8: 51pm Headache October 11, 2024 8: 51pm Visual disturbance October 11, 2024 8: 51pm Dehydration October 11, 2024 8: 51pm Brain TIA October 21, 2024 10 :05am Endometrial hyperplasia without atypia, simple October 21, 2024 10:05am Enlarged uterus October 21, 2024 10 :05am Obesity (BMI 30-39.9) October 21, 2024 10:05am Postmenopausal bleeding October 21 10:05am Pre-op evaluation October 21, 2024 10 :05am S/P parathyroidectomy October 21, 2024 10:05am Obesity October 21, 2024 10 :05am Chief Complaint Admit Date LABS September 03, 2024 11:54 am discuss hysterectomy September 20, 2024 3:4 8pm [facility], WITH VISUAL DISTURBANCE, SLU RRED October 11, 2024 8:51pm [facility], WITH VISUAL DISTURBANCE, SLU RRED October 12, 2024 11:47am TRHBSO Cysto October 21, 2024 10 :05am PATTEL INT LABS November 19, 2024 8:15am PATTEL INT LABS November 19, 2024 10:02am 2 wk TRH BSO Cysto December 03, 2024 11 :15am Chief Complaint Admit Date LABS September 03, 2024 11:54 am discuss hysterectomy September 20, 2024 3:4 8pm [facility], WITH VISUAL DISTURBANCE, SLU RRED October 11, 2024 8:51pm T[facility] VS [facility], WITH VISUAL DISTURBANCE, SLU RRED October 12, 2024 11:47am TRHBSO Cysto October 21, 2024 10 :05am PATTEL INT LABS November 19, 2024 8:15am PATTEL INT LABS November 19, 2024 10:02am 2 wk TRH BSO Cysto December 03, 2024 11 :15am HERNIA - SELF PAY December 05, 2024 1: 23pm Reason for Visit Admit Date Endometrial hyperplasia without atypia, simple September 20, 2024 3:48pm Enlarged uterus September 20, 2024 3:48 pm S/P parathyroidectomy September 20, 2024 3: 48pm Obesity September 20, 2024 3:48 pm Brain TIA October 11, 2024 8: 51pm Obesity (BMI 30-39.9) October 11, 2024 8:51pm Slurred speech October 11, 2024 8: 51pm Headache October 11, 2024 8: 51pm Visual disturbance October 11, 2024 8: 51pm Dehydration October 11, 2024 8: 51pm Brain TIA October 21, 2024 10 :05am Endometrial hyperplasia without atypia, simple October 21, 2024 10:05am Enlarged uterus October 21, 2024 10 :05am Obesity (BMI 30-39.9) October 21, 2024 10:05am Postmenopausal bleeding October 21 10:05am Pre-op evaluation October 21, 2024 10 :05am S/P parathyroidectomy October 21, 2024 10:05am Obesity October 21, 2024 10 :05am H/O total hysterectomy with bilateral salpingo-oophorectomy (BSO) December 03, 2024 11:15am Ventral hernia without obstruction or ga ngrene December 05, 2024 1:23pm Additional Source Comments INFORMATION SOURCE (unrecogn ized section and content) DATE CREATED AUTHOR 08/18/2017 [facility] DATE CREATED AUTHOR AUTHOR'S ORGANIZ ATION 10/12/2018 [facility] DATE CREATED AUTHOR AUTHOR'S ORGANIZ ATION 09/15/2023 [facility] DATE CREATED AUTHOR AUTHOR'S ORGANIZ ATION 11/19/2023 [facility] DATE CREATED AUTHOR AUTHOR'S ORGANIZ ATION 12/13/2024 [facility] Reason for Visit (unrecogniz ed section and content) Reason Onset Date Comments Mass 09/12/2023 Care Teams (unrecognized sec tion and content) Buttonhole Machine Operator Relationship Specialty Start Date End Date Eron Daigle DO [address] [place] [address] PCP - General 02/01/16 Team Status: Active Member Role Status Dates Leigha Wynn NP, PE[employer] 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-C Primary Care Provider Active Team Status: Inactive Member Role Status Dates Leigha Wynn NP PE[employer] 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-C Primary Care Provider Active Start: March 19, 2024 End: March 19, 2024 Leigha Wynn NP, PEST CONTROL 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-C Referring Provider Active Start: March 19, 2024 End: March 19, 2024 Dr. Salo Boles MD Attending Provider Active Sta rt: March 19, 2024 End: March 19, 2024 Team Status: Inactive Member Role Status Dates Leigha Wynn NP PE[employer] CONTROL 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-C Primary Care Provider Active Start: March 19, 2024 End: March 19, 2024 Dr. Salo Boles MD Attending Provider Active Sta rt: March 19, 2024 End: March 19, 2024 Dr. Salo Boles MD Referring Provider Active Sta rt: March 19, 2024 End: March 19, 2024 Team Status: Inactive Member Role Status Dates Leigha Wynn NP, PEST CONTROL 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-C Primary Care Provider Active Start: March 28, 2024 End: March 28, 2024 Dr. Salo Boles MD Attending Provider Active Sta rt: March 28, 2024 End: March 28, 2024 Dr. Salo Boles MD Referring Provider Active Sta rt: March 28, 2024 End: March 28, 2024 Team Status: Inactive Member Role Status Dates Leigha Wynn PEST CONTROL 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, PE[employer] CONTROL 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-C Primary Care Provider Active Start: April 09, 2024 End: April 09, 2024 Dr. Salo Boles MD Attending Provider Active Sta rt: April 09, 2024 End: April 09, 2024 Dr. Salo Boles MD Referring Provider Active Sta rt: April 09, 2024 End: April 09, 2024 Team Status: Inactive Member Role Status Dates Leigha Wynn PEST CONTROL 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, PEST CONTROL 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-C Primary Care Provider Active Start: April 18, 2024 End: April 18, 2024 Dr. Salo Boles MD Attending Provider Active Sta rt: April 18, 2024 End: April 18, 2024 Dr. Salo Boles MD Referring Provider Active Sta rt: April 18, 2024 End: April 18, 2024 Team Status: Inactive Member Role Status Dates Leigha Wynn PEST CONTROL 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, PEST CONTROL 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-C Primary Care Provider Active Start: May 01, 2024 End: May 01, 2024 Leigha Wynn PEST CONTROL 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, PEST CONTROL 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-C Referring Provider Active Start: May 01, 2024 End: May 01, 2024 Dr. Errol Adams MD Attending Provider Active Start: May 01, 2024 End: May 01, 2024 Team Status: Inactive Member Role Status Dates Leigha Wynn PEST CONTROL 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, PEST CONTROL 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-C Primary Care Provider Active Start: May 17, 2024 End: May 17, 2024 Leigha Wynn PEST CONTROL 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, PEST CONTROL 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-C Attending Provider Active Start: May 17, 2024 End: May 17, 2024 Leigha Kingsley PEST CONTROL 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, PEST CONTROL 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-C Referring Provider Active Start: May 17, 2024 End: May 17, 2024 Team Status: Active Member Role Status Dates Leigha Wynn PEST CONTROL 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, PEST CONTROL 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-C Primary Care Provider Active Start: May 23, 2024 End: May 23, 2024 Dr. Maikol Sanchez MD Attending Provider Active S tart: May 23, 2024 End: May 23, 2024 Dr. Errol Adams MD Referring Provider Active Start: May 23, 2024 End: May 23, 2024 Team Status: Inactive Member Role Status Dates Leigha Wynn PEST CONTROL 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, PEST CONTROL CHEMICAL TECHNICIAN-C Primary Care Provider Active Start: June 04, 2024 End: June 04, 2024 Dr. Errol Adams MD Attending Provider Active Start: June 04, 2024 End: June 04, 2024 Dr. Errol Adams MD Referring Provider Active Start: June 04, 2024 End: June 04, 2024 Team Status: Active Member Role Status Dates Leigha Wynn PEST CONTROL CHEMICAL TECHNICIAN, PEST CONTROL CHEMICAL TECHNICIAN-C Primary Care Provider Active Start: June 04, 2024 Dr. Errol Adams MD Attending Provider Active Start: June 04, 2024 Dr. Errol Adams MD Referring Provider Active Start: June 04, 2024 Dr. Errol Adams MD Other Provider Active Sta rt: June 04, 2024 Team Status: Inactive Member Role Status Dates Leigha Wynn PEST CONTROL CHEMICAL TECHNICIAN, PEST CONTROL CHEMICAL TECHNICIAN-C Primary Care Provider Active Start: June 11, 2024 End: June 11, 2024 Leigha Wynn PEST CONTROL CHEMICAL TECHNICIAN, PEST CONTROL CHEMICAL TECHNICIAN-C Referring Provider Active Start: June 11, 2024 End: June 11, 2024 Dr. Errol Adams MD Attending Provider Active Start: June 11, 2024 End: June 11, 2024 Team Status: Inactive Member Role Status Dates Leigha Wynn PEST CONTROL CHEMICAL TECHNICIAN, PEST CONTROL CHEMICAL TECHNICIAN-C Primary Care Provider Active Start: June 11, 2024 End: June 11, 2024 Dr. Errol Adams MD Attending Provider Active Start: June 11, 2024 End: June 11, 2024 Dr. Errol Adams MD Referring Provider Active Start: June 11, 2024 End: June 11, 2024 Team Status: Inactive Member Role Status Dates Leigha Wynn PEST CONTROL CHEMICAL TECHNICIAN, PEST CONTROL CHEMICAL TECHNICIAN-C Primary Care Provider Active Start: July 15, 2024 End: July 15, 2024 Leigha Kingsley PEST CONTROL CHEMICAL TECHNICIAN, PEST CONTROL CHEMICAL TECHNICIAN-C Attending Provider Active Start: July 15, 2024 End: July 15, 2024 Leigha Kingsley PEST CONTROL CHEMICAL TECHNICIAN, PEST CONTROL CHEMICAL TECHNICIAN-C Referring Provider Active Start: July 15, 2024 End: July 15, 2024 Team Status: Active Member Role Status Dates Leigha Wynn PEST CONTROL CHEMICAL TECHNICIAN, PEST CONTROL CHEMICAL TECHNICIAN-C Primary Care Provider Active Start: July 15, 2024 Dr. Maikol Sanchez MD Attending Provider Active S tart: July 15, 2024 Team Status: Active Member Role/Relationship Status Dates Leigha Wynn PEST CONTROL CHEMICAL TECHNICIAN, PEST CONTROL CHEMICAL TECHNICIAN-C Primary Care Provider Active Team Status: Inactive Member Role/Relationship Status Dates Leigha Wynn PEST CONTROL CHEMICAL TECHNICIAN, PEST CONTROL CHEMICAL TECHNICIAN-C Primary Care Provider Active Start: May 17, 2024 End: May 17, 2024 Leigha Wynn PEST CONTROL CHEMICAL TECHNICIAN, PEST CONTROL CHEMICAL TECHNICIAN-C Attending Provider Active Start: May 17, 2024 End: May 17, 2024 Leigha Wynn PEST CONTROL CHEMICAL TECHNICIAN, PEST CONTROL CHEMICAL TECHNICIAN-C Referring Provider Active Start: May 17, 2024 End: May 17, 2024 Team Status: Active Member Role/Relationship Status Dates Leigha Wynn PEST CONTROL CHEMICAL TECHNICIAN, PEST CONTROL CHEMICAL TECHNICIAN-C Primary Care Provider Active Start: May 23, 2024 End: May 23, 2024 Dr. Maikol Sanchez MD Attending Provider Active S tart: May 23, 2024 End: May 23, 2024 Dr. Errol Adams MD Referring Provider Active Start: May 23, 2024 End: May 23, 2024 Team Status: Inactive Member Role/Relationship Status Dates Leigha Wynn PEST CONTROL CHEMICAL TECHNICIAN, PEST CONTROL CHEMICAL TECHNICIAN-C Primary Care Provider Active Start: June 04, 2024 End: June 04, 2024 Dr. Errol Adams MD Attending Provider Active Start: June 04, 2024 End: June 04, 2024 Dr. Errol Adams MD Referring Provider Active Start: June 04, 2024 End: June 04, 2024 Team Status: Active Member Role/Relationship Status Dates Leigha Wynn PEST CONTROL CHEMICAL TECHNICIAN, PEST CONTROL CHEMICAL TECHNICIAN-C Primary Care Provider Active Start: June 04, 2024 Dr. Errol Adams MD Attending Provider Active Start: June 04, 2024 Dr. Errol Adams MD Referring Provider Active Start: June 04, 2024 Dr. Errol Adams MD Other Provider Active Sta rt: June 04, 2024 Team Status: Inactive Member Role/Relationship Status Dates Leigha Wynn PEST CONTROL CHEMICAL TECHNICIAN, PEST CONTROL CHEMICAL TECHNICIAN-C Primary Care Provider Active Start: June 11, 2024 End: June 11, 2024 Leigha Wynn PEST CONTROL CHEMICAL TECHNICIAN, PEST CONTROL CHEMICAL TECHNICIAN-C Referring Provider Active Start: June 11, 2024 End: June 11, 2024 Dr. Errol Adams MD Attending Provider Active Start: June 11, 2024 End: June 11, 2024 Team Status: Inactive Member Role/Relationship Status Dates Leigha Wynn PEST CONTROL CHEMICAL TECHNICIAN, PEST CONTROL CHEMICAL TECHNICIAN-C Primary Care Provider Active Start: June 11, 2024 End: June 11, 2024 Dr. Errol Adams MD Attending Provider Active Start: June 11, 2024 End: June 11, 2024 Dr. Errol Adams MD Referring Provider Active Start: June 11, 2024 End: June 11, 2024 Team Status: Inactive Member Role/Relationship Status Dates Leigha Wynn PEST CONTROL CHEMICAL TECHNICIAN, PEST CONTROL CHEMICAL TECHNICIAN-C Primary Care Provider Active Start: July 15, 2024 End: July 15, 2024 Leigha Wynn PEST CONTROL CHEMICAL TECHNICIAN, PEST CONTROL CHEMICAL TECHNICIAN-C Attending Provider Active Start: July 15, 2024 End: July 15, 2024 Leigha Wynn PEST CONTROL CHEMICAL TECHNICIAN, PEST CONTROL CHEMICAL TECHNICIAN-C Referring Provider Active Start: July 15, 2024 End: July 15, 2024 Team Status: Active Member Role/Relationship Status Dates Leigha Wynn PEST CONTROL CHEMICAL TECHNICIAN, PEST CONTROL CHEMICAL TECHNICIAN-C Primary Care Provider Active Start: July 15, 2024 Dr. Maikol Sanchez MD Attending Provider Active S tart: July 15, 2024 Team Status: Inactive Member Role/Relationship Status Dates Leigha Wynn PEST CONTROL CHEMICAL TECHNICIAN, PEST CONTROL CHEMICAL TECHNICIAN-C Primary Care Provider Active Start: September 03, 2024 End: September 03, 2024 Leigha Wynn PEST CONTROL CHEMICAL TECHNICIAN, PEST CONTROL CHEMICAL TECHNICIAN-C Attending Provider Active Start: September 03, 2024 End: September 03, 2024 Leigha Wynn PEST CONTROL CHEMICAL TECHNICIAN, PEST CONTROL CHEMICAL TECHNICIAN-C Referring Provider Active Start: September 03, 2024 End: September 03, 2024 Team Status: Active Member Role/Relationship Status Dates Leigha Wynn PEST CONTROL CHEMICAL TECHNICIAN, PEST CONTROL CHEMICAL TECHNICIAN-C Primary Care Provider Active Start: May 23, 2024 End: May 23, 2024 Dr. Maikol Sanchez MD Attending Provider Active S tart: May 23, 2024 End: May 23, 2024 Dr. Errol Adams MD Referring Provider Active Start: May 23, 2024 End: May 23, 2024 Team Status: Inactive Member Role/Relationship Status Dates Leigha Wynn PEST CONTROL CHEMICAL TECHNICIAN, PEST CONTROL CHEMICAL TECHNICIAN-C Primary Care Provider Active Start: June 04, 2024 End: June 04, 2024 Dr. Errol Adams MD Attending Provider Active Start: June 04, 2024 End: June 04, 2024 Dr. Errol Adams MD Referring Provider Active Start: June 04, 2024 End: June 04, 2024 Team Status: Active Member Role/Relationship Status Dates Leigha Wynn PEST CONTROL CHEMICAL TECHNICIAN, PEST CONTROL CHEMICAL TECHNICIAN-C Primary Care Provider Active Start: June 04, 2024 Dr. Errol Adams MD Attending Provider Active Start: June 04, 2024 Dr. Errol Adams MD Referring Provider Active Start: June 04, 2024 Dr. Errol Adams MD Other Provider Active Sta rt: June 04, 2024 Team Status: Inactive Member Role/Relationship Status Dates Leigha Wynn PEST CONTROL CHEMICAL TECHNICIAN, PEST CONTROL CHEMICAL TECHNICIAN-C Primary Care Provider Active Start: June 11, 2024 End: June 11, 2024 Leigha Wynn PEST CONTROL CHEMICAL TECHNICIAN, PEST CONTROL CHEMICAL TECHNICIAN-C Referring Provider Active Start: June 11, 2024 End: June 11, 2024 Dr. Errol Adams MD Attending Provider Active Start: June 11, 2024 End: June 11, 2024 Team Status: Inactive Member Role/Relationship Status Dates Leigha Wynn PEST CONTROL CHEMICAL TECHNICIAN, PEST CONTROL CHEMICAL TECHNICIAN-C Primary Care Provider Active Start: June 11, 2024 End: June 11, 2024 Dr. Errol Adams MD Attending Provider Active Start: June 11, 2024 End: June 11, 2024 Dr. Errol Adams MD Referring Provider Active Start: June 11, 2024 End: June 11, 2024 Team Status: Inactive Member Role/Relationship Status Dates Leigha Wynn PEST CONTROL CHEMICAL TECHNICIAN, PEST CONTROL CHEMICAL TECHNICIAN-C Primary Care Provider Active Start: July 15, 2024 End: July 15, 2024 Leigha Wynn PEST CONTROL CHEMICAL TECHNICIAN, PEST CONTROL CHEMICAL TECHNICIAN-C Attending Provider Active Start: July 15, 2024 End: July 15, 2024 Leigha Wynn PEST CONTROL CHEMICAL TECHNICIAN, PEST CONTROL CHEMICAL TECHNICIAN-C Referring Provider Active Start: July 15, 2024 End: July 15, 2024 Team Status: Active Member Role/Relationship Status Dates Leigha Wynn PEST CONTROL CHEMICAL TECHNICIAN, PEST CONTROL CHEMICAL TECHNICIAN-C Primary Care Provider Active Start: July 15, 2024 Dr. Maikol Sanchez MD Attending Provider Active S tart: July 15, 2024 Team Status: Inactive Member Role/Relationship Status Dates Leigha Wynn PEST CONTROL CHEMICAL TECHNICIAN, PEST CONTROL CHEMICAL TECHNICIAN-C Primary Care Provider Active Start: September 03, 2024 End: September 03, 2024 Leigha Wynn PEST CONTROL CHEMICAL TECHNICIAN, PEST CONTROL CHEMICAL TECHNICIAN-C Attending Provider Active Start: September 03, 2024 End: September 03, 2024 Leigha Wynn PEST CONTROL CHEMICAL TECHNICIAN, PEST CONTROL CHEMICAL TECHNICIAN-C Referring Provider Active Start: September 03, 2024 End: September 03, 2024 Team Status: Inactive Member Role/Relationship Status Dates Leigha Wynn PEST CONTROL CHEMICAL TECHNICIAN, PEST CONTROL CHEMICAL TECHNICIAN-C Primary Care Provider Active Start: September 20, 2024 End: September 20, 2024 Leigha Kingsley PEST CONTROL CHEMICAL TECHNICIAN, PEST CONTROL CHEMICAL TECHNICIAN-C Referring Provider Active Start: September 20, 2024 End: September 20, 2024 Dr. So Jamison DO Attending Provider Activ e Start: September 20, 2024 End: September 20, 2024 Team Status: Inactive Member Role/Relationship Status Dates Leigha Wynn PEST CONTROL CHEMICAL TECHNICIAN, PEST CONTROL CHEMICAL TECHNICIAN-C Primary Care Provider Active Start: June 04, 2024 End: June 04, 2024 Dr. Errol Adams MD Attending Provider Active Start: June 04, 2024 End: June 04, 2024 Dr. Errol Adams MD Referring Provider Active Start: June 04, 2024 End: June 04, 2024 Team Status: Active Member Role/Relationship Status Dates Leigha Wynn PEST CONTROL CHEMICAL TECHNICIAN, PEST CONTROL CHEMICAL TECHNICIAN-C Primary Care Provider Active Start: June 04, 2024 Dr. Errol Adams MD Attending Provider Active Start: June 04, 2024 Dr. Errol Adams MD Referring Provider Active Start: June 04, 2024 Dr. Errol Adams MD Other Provider Active Sta rt: June 04, 2024 Team Status: Inactive Member Role/Relationship Status Dates Leigha Wynn PEST CONTROL CHEMICAL TECHNICIAN, PEST CONTROL CHEMICAL TECHNICIAN-C Primary Care Provider Active Start: June 11, 2024 End: June 11, 2024 Leigha Wynn PEST CONTROL CHEMICAL TECHNICIAN, PEST CONTROL CHEMICAL TECHNICIAN-C Referring Provider Active Start: June 11, 2024 End: June 11, 2024 Dr. Errol Adams MD Attending Provider Active Start: June 11, 2024 End: June 11, 2024 Team Status: Inactive Member Role/Relationship Status Dates Leigha Wynn PEST CONTROL CHEMICAL TECHNICIAN, PEST CONTROL CHEMICAL TECHNICIAN-C Primary Care Provider Active Start: June 11, 2024 End: June 11, 2024 Dr. Errol Adams MD Attending Provider Active Start: June 11, 2024 End: June 11, 2024 Dr. Errol Adams MD Referring Provider Active Start: June 11, 2024 End: June 11, 2024 Team Status: Inactive Member Role/Relationship Status Dates Leigha Wynn PEST CONTROL CHEMICAL TECHNICIAN, PEST CONTROL CHEMICAL TECHNICIAN-C Primary Care Provider Active Start: July 15, 2024 End: July 15, 2024 Leigha Wynn PEST CONTROL CHEMICAL TECHNICIAN, PEST CONTROL CHEMICAL TECHNICIAN-C Attending Provider Active Start: July 15, 2024 End: July 15, 2024 Leigha Wynn PEST CONTROL CHEMICAL TECHNICIAN, PEST CONTROL CHEMICAL TECHNICIAN-C Referring Provider Active Start: July 15, 2024 End: July 15, 2024 Team Status: Active Member Role/Relationship Status Dates Leigha Wynn PEST CONTROL CHEMICAL TECHNICIAN, PEST CONTROL CHEMICAL TECHNICIAN-C Primary Care Provider Active Start: July 15, 2024 Dr. Maikol Sanchez MD Attending Provider Active S tart: July 15, 2024 Team Status: Inactive Member Role/Relationship Status Dates Leigha Wynn PEST CONTROL CHEMICAL TECHNICIAN, PEST CONTROL CHEMICAL TECHNICIAN-C Primary Care Provider Active Start: September 03, 2024 End: September 03, 2024 Leigha Wynn PEST CONTROL CHEMICAL TECHNICIAN, PEST CONTROL CHEMICAL TECHNICIAN-C Attending Provider Active Start: September 03, 2024 End: September 03, 2024 Leigha Wynn PEST CONTROL CHEMICAL TECHNICIAN, PEST CONTROL CHEMICAL TECHNICIAN-C Referring Provider Active Start: September 03, 2024 End: September 03, 2024 Team Status: Inactive Member Role/Relationship Status Dates Leigha Wynn PEST CONTROL CHEMICAL TECHNICIAN, PEST CONTROL CHEMICAL TECHNICIAN-C Primary Care Provider Active Start: September 20, 2024 End: September 20, 2024 Dr. So Jamison DO Attending Provider Activ e Start: September 20, 2024 End: September 20, 2024 Dr. So Jamison DO Referring Provider Activ e Start: September 20, 2024 End: September 20, 2024 Team Status: Inactive Member Role/Relationship Status Dates Leigha Wynn PEST CONTROL CHEMICAL TECHNICIAN, PEST CONTROL CHEMICAL TECHNICIAN-C Primary Care Provider Active Start: July 15, 2024 End: July 15, 2024 Leigha Wynn PEST CONTROL CHEMICAL TECHNICIAN, PEST CONTROL CHEMICAL TECHNICIAN-C Attending Provider Active Start: July 15, 2024 End: July 15, 2024 Leigha Wynn PEST CONTROL CHEMICAL TECHNICIAN, PEST CONTROL CHEMICAL TECHNICIAN-C Referring Provider Active Start: July 15, 2024 End: July 15, 2024 Team Status: Active Member Role/Relationship Status Dates Leigha Wynn PEST CONTROL CHEMICAL TECHNICIAN, PEST CONTROL CHEMICAL TECHNICIAN-C Primary Care Provider Active Start: July 15, 2024 Dr. Maikol Sanchez MD Attending Provider Active S tart: July 15, 2024 Team Status: Inactive Member Role/Relationship Status Dates Leigha Wynn PEST CONTROL CHEMICAL TECHNICIAN, PEST CONTROL CHEMICAL TECHNICIAN-C Primary Care Provider Active Start: September 03, 2024 End: September 03, 2024 Leigha Wynn PEST CONTROL CHEMICAL TECHNICIAN, PEST CONTROL CHEMICAL TECHNICIAN-C Attending Provider Active Start: September 03, 2024 End: September 03, 2024 Leigha Wynn PEST CONTROL CHEMICAL TECHNICIAN, PEST CONTROL CHEMICAL TECHNICIAN-C Referring Provider Active Start: September 03, 2024 End: September 03, 2024 Team Status: Inactive Member Role/Relationship Status Dates Leigha Wynn PEST CONTROL CHEMICAL TECHNICIAN, PEST CONTROL CHEMICAL TECHNICIAN-C Primary Care Provider Active Start: September 20, 2024 End: September 20, 2024 Dr. So Jamison DO Attending Provider Activ e Start: September 20, 2024 End: September 20, 2024 Dr. So Jamison DO Referring Provider Activ e Start: September 20, 2024 End: September 20, 2024 Team Status: Inactive Member Role/Relationship Status Dates Leigha Wynn PEST CONTROL CHEMICAL TECHNICIAN, PEST CONTROL CHEMICAL TECHNICIAN-C Primary Care Provider Active Start: September 20, 2024 End: September 20, 2024 Legiha Wynn PEST CONTROL CHEMICAL TECHNICIAN, PEST CONTROL CHEMICAL TECHNICIAN-C Referring Provider Active Start: September 20, 2024 End: September 20, 2024 Dr. So Jamison DO Attending Provider Activ e Start: September 20, 2024 End: September 20, 2024 Team Status: Active Member Role/Relationship Status Dates Leigha Wynn PEST CONTROL CHEMICAL TECHNICIAN, PEST CONTROL CHEMICAL TECHNICIAN-C Primary Care Provider Active Start: October 11, 2024 Dr. Ashwin Bauman MD Emergency Provider Active S tart: October 11, 2024 Dr. Maverick Mitchell DO Admit Provider Active Start: October 11, 2024 Dr. Maverick Mitchell DO Attending Provider Active Start: October 11, 2024 Team Status: Inactive Member Role/Relationship Status Dates Leigha Wynn PEST CONTROL CHEMICAL TECHNICIAN, PEST CONTROL CHEMICAL TECHNICIAN-C Primary Care Provider Active Start: October 11, 2024 End: October 12, 2024 Dr. Ashwin Bauman MD Emergency Provider Active S tart: October 11, 2024 End: October 12, 2024 Dr. Maverick Mitchell DO Admit Provider Active Start: October 11, 2024 End: October 12, 2024 Dr. Maverick Mitchell DO Other Provider Active Start: October 11, 2024 End: October 12, 2024 Horacio Lopez MD Other Provider Active Start: 2024 End: October 12, 2024 Dr. Cyrus Ball MD Other Provider Active Start: October 11, 2024 End: October 12, 2024 Fay Burkett MD Other Provider Active Start : October 11, 2024 End: October 12, 2024 Dr. Hina Maurice DO Other Provider Active St art: October 11, 2024 End: October 12, 2024 Dr. Mahsa Farmer MD Other Provider Active Start: October 11, 2024 End: October 12, 2024 Dr. Brown Rg MD Other Provider Active Sta rt: October 11, 2024 End: October 12, 2024 Dr. Jazmin Asher MD Other Provider Active Start : October 11, 2024 End: October 12, 2024 Dr. Krzysztof Estrada MD Other Provider Active Start: October 11, 2024 End: October 12, 2024 Dr. Deandre Stinson MD Other Provider Active Start : October 11, 2024 End: October 12, 2024 Dr. Jose Armando Resendiz MD Other Provider Active Sta rt: October 11, 2024 End: October 12, 2024 Clarissa Easton MD Other Provider Active Start : October 11, 2024 End: October 12, 2024 Dr. Saleem Ac MD Other Provider Active St art: October 11, 2024 End: October 12, 2024 Dr. Lena Mccann MD Other Provider Active Start : October 11, 2024 End: October 12, 2024 Dr. Rudy Callahan MD Other Provider Active Sta rt: October 11, 2024 End: October 12, 2024 Dr. Bill Matthews MD Other Provider Active Start: October 11, 2024 End: October 12, 2024 Dr. Jose Billingsley MD Other Provider Active St art: October 11, 2024 End: October 12, 2024 Dr. Lei Cabrera MD Other Provider Active Star t: October 11, 2024 End: October 12, 2024 Dr. Jorge Park MD Other Provider Active St art: October 11, 2024 End: October 12, 2024 Dr. Crissy Smith MD Other Provider Active Start: October 11, 2024 End: October 12, 2024 Jaky Soria MD Other Provider Active Start: October 11, 2024 End: October 12, 2024 Dr. Merlin Rivers MD Attending Provider Active Start: October 11, 2024 End: October 12, 2024 Team Status: Active Member Role/Relationship Status Dates Leigha Wynn NP, [employer] CHEMICAL TECHNICIAN-C Primary Care Provider Active Start: October 12, 2024 Dr. Don Owen MD Attending Provider Active S tart: October 12, 2024 Team Status: Active Member Role/Relationship Status Dates Leigha Wynn [employer] CHEMICAL TECHNICIAN, [employer] CHEMICAL TECHNICIAN-C Primary Care Provider Active Start: October 12, 2024 Dr. Ashwin Bauman MD Emergency Provider Active S tart: October 12, 2024 Dr. Maverick Mitchell DO Admit Provider Active Start: October 12, 2024 Dr. Maverick Mitchell DO Other Provider Active Start: October 12, 2024 Horacio Lopez MD Other Provider Active Start: 2024 Dr. Cyrus Ball MD Other Provider Active Start: October 12, 2024 Fay Burkett MD Other Provider Active Start : October 12, 2024 Dr. Hina Maurice DO Other Provider Active St art: October 12, 2024 Dr. Mahsa Farmer MD Other Provider Active Start: October 12, 2024 Dr. Brown gR MD Other Provider Active Sta rt: October 12, 2024 Dr. Jazmin Asher MD Other Provider Active Start : October 12, 2024 Dr. Krzysztof Estrada MD Other Provider Active Start: October 12, 2024 Dr. Deandre Stinson MD Other Provider Active Start : October 12, 2024 Dr. Jose Armando Resendiz MD Other Provider Active Sta rt: October 12, 2024 Clarissa Easton MD Other Provider Active Start : October 12, 2024 Dr. Saleem Ac MD Other Provider Active St art: October 12, 2024 Dr. Lena Mccann MD Other Provider Active Start : October 12, 2024 Dr. Rudy Callahan MD Other Provider Active Sta rt: October 12, 2024 Dr. Bill Matthews MD Other Provider Active Start: October 12, 2024 Dr. Jose Billingsley MD Other Provider Active St art: October 12, 2024 Dr. Lei Cabrera MD Other Provider Active Star t: October 12, 2024 Dr. Jorge Park MD Other Provider Active St art: October 12, 2024 Dr. Crissy Smith MD Other Provider Active Start: October 12, 2024 Jaky Soria MD Other Provider Active Start: October 12, 2024 Dr. Merlin Rivers MD Attending Provider Active Start: October 12, 2024 Dr. Merlin Rivers MD Other Provider Active Sta rt: October 12, 2024 Team Status: Inactive Member Role/Relationship Status Dates Leigha Wynn [employer] CHEMICAL TECHNICIAN, [employer] CHEMICAL TECHNICIAN-C Primary Care Provider Active Start: October 21, 2024 End: October 21, 2024 Leigha Wynn [employer]OL CHEMICAL TECHNICIAN, PE[employer] CHEMICAL TECHNICIAN-C Referring Provider Active Start: October 21, 2024 End: October 21, 2024 Dr. So Jamison DO Attending Provider Activ e Start: October 21, 2024 End: October 21, 2024 Team Status: Active Member Role/Relationship Status Dates Leigha Wynn [employer] CONTROL CHEMICAL TECHNICIAN, [employer]OL CHEMICAL TECHNICIAN-C Primary care physician Active Team Status: Inactive Member Role/Relationship Status Dates Leigha Wynn [employer]OL CHEMICAL TECHNICIAN, [employer] CHEMICAL TECHNICIAN-C Primary care physician Active Start: September 03, 2024 End: September 03, 2024 Leigha Wynn [employer]OL CHEMICAL TECHNICIAN, [employer] CHEMICAL TECHNICIAN-C Attending physician Active Start: September 03, 2024 End: September 03, 2024 Leigha Wynn [employer] CONTROL CHEMICAL TECHNICIAN, PE[employer]OL CHEMICAL TECHNICIAN-C Referring Provider Active Start: September 03, 2024 End: September 03, 2024 Team Status: Inactive Member Role/Relationship Status Dates Leigha Wynn [employer] CONTROL CHEMICAL TECHNICIAN, [employer] CHEMICAL TECHNICIAN-C Primary care physician Active Start: September 20, 2024 End: September 20, 2024 Dr. So Jamison DO Attending physician Acti ve Start: September 20, 2024 End: September 20, 2024 Dr. So Jamison DO Referring Provider Activ e Start: September 20, 2024 End: September 20, 2024 Team Status: Inactive Member Role/Relationship Status Dates Leigha Wynn [employer] CONTROL CHEMICAL TECHNICIAN, [employer] CHEMICAL TECHNICIAN-C Primary care physician Active Start: September 20, 2024 End: September 20, 2024 Leigha Wynn [employer] CONTROL CHEMICAL TECHNICIAN, PE[employer]OL CHEMICAL TECHNICIAN-C Referring Provider Active Start: September 20, 2024 End: September 20, 2024 Dr. So Jamison DO Attending physician Acti ve Start: September 20, 2024 End: September 20, 2024 Team Status: Inactive Member Role/Relationship Status Dates Leigha Wynn [employer]OL CHEMICAL TECHNICIAN, [employer] CHEMICAL TECHNICIAN-C Primary care physician Active Start: October 11, 2024 End: October 12, 2024 Dr. Ashwin Bauman MD Emergency Departmen t Physician Active Start: October 11, 2024 End: October 12, 2024 Dr. Maverick Mitchell DO Admitting physician Active Start: October 11, 2024 End: October 12, 2024 Dr. Maverick Mitchell , Nurse Practitioner Active Start: October 11, 2024 End: October 12, 2024 Horacio Lopez MD Nurse Practitioner Active Start : October 11, 2024 End: October 12, 2024 Dr. Cyrus Ball MD Nurse Practitioner Active St art: October 11, 2024 End: October 12, 2024 Fay Burkett MD Nurse Practitioner Active S tart: October 11, 2024 End: October 12, 2024 Dr. Hina Maurice DO Nurse Practitioner Active Start: October 11, 2024 End: October 12, 2024 Dr. Mahsa Farmer MD Nurse Practitioner Active St art: October 11, 2024 End: October 12, 2024 Dr. Brown Rg MD Nurse Practitioner Active Start: October 11, 2024 End: October 12, 2024 Dr. Jazmin Asher MD Nurse Practitioner Active S tart: October 11, 2024 End: October 12, 2024 Dr. Krzysztof Estrada MD Nurse Practitioner Active St art: October 11, 2024 End: October 12, 2024 Dr. Deandre Stinson MD Nurse Practitioner Active S tart: October 11, 2024 End: October 12, 2024 Dr. Jose Armando Resendiz MD Nurse Practitioner Active Start: October 11, 2024 End: October 12, 2024 Clarissa Easton MD Nurse Practitioner Active S tart: October 11, 2024 End: October 12, 2024 Dr. Saleem Ac MD Nurse Practitioner Active Start: October 11, 2024 End: October 12, 2024 Dr. Lena Mccann MD Nurse Practitioner Active S tart: October 11, 2024 End: October 12, 2024 Dr. Rudy Callahan MD Nurse Practitioner Active Start: October 11, 2024 End: October 12, 2024 Dr. Bill Matthews MD Nurse Practitioner Active Start: October 11, 2024 End: October 12, 2024 Dr. Jose Billingsley MD Nurse Practitioner Active Start: October 11, 2024 End: October 12, 2024 Dr. Lei Cabrera MD Nurse Practitioner Active Start: October 11, 2024 End: October 12, 2024 Dr. Jorge Park MD Nurse Practitioner Active Start: October 11, 2024 End: October 12, 2024 Dr. Crissy Smith MD Nurse Practitioner Active St art: October 11, 2024 End: October 12, 2024 Jaky Soria MD Nurse Practitioner Active St art: October 11, 2024 End: October 12, 2024 Dr. Merlin Rivers MD Attending physician Active Start: October 11, 2024 End: October 12, 2024 Team Status: Active Member Role/Relationship Status Dates Leigha Wynn [employer] CONTROL CHEMICAL TECHNICIAN, [employer]OL CHEMICAL TECHNICIAN-C Primary care physician Active Start: October 12, 2024 Dr. Don Owen MD Attending physician Active Start: October 12, 2024 Team Status: Active Member Role/Relationship Status Dates Leigha Wynn [employer] CONTROL CHEMICAL TECHNICIAN, PE[employer]OL CHEMICAL TECHNICIAN-C Primary care physician Active Start: October 12, 2024 Dr. Ashwin Bauman MD Emergency Departmen t Physician Active Start: October 12, 2024 Dr. Maverick Mitchell DO Admitting physician Active Start: October 12, 2024 Dr. Maverick Mitchell DO Nurse Practitioner Active Start: October 12, 2024 Horacio Lopez MD Nurse Practitioner Active Start : October 12, 2024 Dr. Cyrus Ball MD Nurse Practitioner Active St art: October 12, 2024 Fay Burkett MD Nurse Practitioner Active S tart: October 12, 2024 Dr. Hina Maurice DO Nurse Practitioner Active Start: October 12, 2024 Dr. Mahsa Farmer MD Nurse Practitioner Active St art: October 12, 2024 Dr. Brown Rg MD Nurse Practitioner Active Start: October 12, 2024 Dr. Jazmin Asher MD Nurse Practitioner Active S tart: October 12, 2024 Dr. Krzysztof Estrada MD Nurse Practitioner Active St art: October 12, 2024 Dr. Deandre Stinson MD Nurse Practitioner Active S tart: October 12, 2024 Dr. Jose Armando Resendiz MD Nurse Practitioner Active Start: October 12, 2024 Clarissa Easton MD Nurse Practitioner Active S tart: October 12, 2024 Dr. Saleem Ac MD Nurse Practitioner Active Start: October 12, 2024 Dr. Lena Mccann MD Nurse Practitioner Active S tart: October 12, 2024 Dr. Rudy Callahan MD Nurse Practitioner Active Start: October 12, 2024 Dr. Bill Matthews MD Nurse Practitioner Active Start: October 12, 2024 Dr. Jose Billingsley MD Nurse Practitioner Active Start: October 12, 2024 Dr. Lei Cabrera MD Nurse Practitioner Active Start: October 12, 2024 Dr. Jorge Park MD Nurse Practitioner Active Start: October 12, 2024 Dr. Crissy Smith MD Nurse Practitioner Active St art: October 12, 2024 Jaky Soria MD Nurse Practitioner Active St art: October 12, 2024 Dr. Merlin Rivers MD Attending physician Active Start: October 12, 2024 Dr. Merlin Rivers MD Nurse Practitioner Active Start: October 12, 2024 Team Status: Inactive Member Role/Relationship Status Dates Leigha Wynn PE[employer] CONTROL CHEMICAL TECHNICIAN, [employer]OL CHEMICAL TECHNICIAN-C Primary care physician Active Start: October 21, 2024 End: October 21, 2024 Leigha Wynn PE[employer] CONTROL CHEMICAL TECHNICIAN, PE[employer] CONTROL CHEMICAL TECHNICIAN-C Referring Provider Active Start: October 21, 2024 End: October 21, 2024 Dr. So Jamison DO Attending physician Acti ve Start: October 21, 2024 End: October 21, 2024 Team Status: Inactive Member Role/Relationship Status Dates Leigha Wynn [employer] CONTROL CHEMICAL TECHNICIAN, PE[employer]OL CHEMICAL TECHNICIAN-C Primary care physician Active Start: November 19, 2024 End: November 19, 2024 Dr. So Jamison DO Attending physician Active Start: October End: November 19, 2024 Dr. So Jamison DO Referring Provider Active Start: October End: November 19, 2024 Dr. Amado Alvarez MD Nurse Practitioner Active Start: November 19, 2024 End: November 19, 2024 Team Status: Active Member Role/Relationship Status Dates Leigha Wynn PEST CONTROL CHEMICAL TECHNICIAN, PE[employer]OL CHEMICAL TECHNICIAN-C Primary care physician Active Start: November 19, 2024 Dr. So Jamison DO Attending physician Active Start: October Dr. So Jamison DO Referring Provider Active Start: October Dr. So Jamison DO Nurse Practitioner Active Start: October Dr. Amado Alvarez MD Nurse Practitioner Active Start: November 19, 2024 Team Status: Inactive Member Role/Relationship Status Dates Leigha Wynn NP, [employer] CONTR[employer] CHEMICAL TECHNICIAN-C Primary care physician Active Start: December 03, 2024 End: December 03, 2024 Leigha Wynn NP, [employer] CONTROL CHEMICAL TECHNICIAN-C Referring Provider Active Start: December 03, 2024 End: December 03, 2024 Dr. So Jamison DO Attending physician Acti ve Start: December 03, 2024 End: December 03, 2024 Team Status: Inactive Member Role/Relationship Status Dates Leigha Wynn NP, [employer] CONTR[employer] CHEMICAL TECHNICIAN-C Primary care physician Active Start: December 05, 2024 End: December 05, 2024 Leigha Wynn NP, [employer]OL CHEMICAL TECHNICIAN-C Referring Provider Active Start: December 05, 2024 End: December 05, 2024 Dr. Errol Adams MD Attending physician Active Start: December 05, 2024 End: December 05, 2024 Goals (unrecognized section and content) Goals may be documented in a n alternate sectionGoals may be documented in an alternate section FOR RECORDS PERTAINING TO PATIENTS [...] BE BASED ON THE PRIMARY CLINICAL RECORDS. [employer] provides no warranty or guarantee of the accuracy or completeness of information in this document.
--- OUTSIDE RECORDS SUMMARY | 2024-12-20 17:11 | XMS RPT_ITS | CCD ---
Author Organization [facility] CliniSyma Care Team Providers Care Java Lead Name Role Phone Eron Daigle Unavailable Unavailable UNKNOWN, PROVIDER Unavailable Unavailable Eron Daigle Unavailable Unavailable UNKNOWN, PROVIDER Unavailable Unavailable Eron Daigle Unavailable Unavailable Jaleel Fernando Unavailable Unavailable Eron Daigle Primary Care Provider Eron Daigle DO Primary Care Provider Kingsley [employer], Leigha Primary Care Provider Wynn [employer], Leigha Referring Provider Dr. Salo Boles MD Attending Provider Dr. Salo Boles MD Referring Provider Dr. Errol Adams MD Attending Provider Wynn [employer], Leigha Attending Provider Dr. Maikol Sanchez MD Attending Provider Dr. Errol Adams MD Referring Provider Dr. Errol Adams MD Other Provider [phone] Wynn [employer], Leigha Primary Care Provider Wynn [employer], Leigha Referring Provider Dr. Errol Adams MD Attending Provider Wynn [employer], Leigha Primary Care Provider Wynn [employer], Leigha Referring Provider Wynn [employer], Leigha Attending Provider [phone] Dr. So Jamison DO Attending Provider Wynn [employer], Leigha Primary Care Provider Bryan HAUSER, Dr. Norton Referring Provider Daniel HAUSER, Dr. Lassiter Attending Provider Phi Alonso DO, Dr. Rizzo Attending Provider Phi Alonso DO, Dr. Rizzo Referring Provider Kingsley [employer], [facility] Primary Care Provider Kingsley [employer], [facility] Referring Provider Mitul HAUSER, Dr. Christopher Emergency Provider de Rm MORENO, Dr. Temple Admit Provider Unavail able de Rm MORENO, Dr. Temple Attending Provider Unav ailable de Rm DO, Dr. Temple Other Provider Unavail able Horacio Lopez MD Other Provider Unavailable Lizzy HASUER, Dr. Bridges Other Provider Madelaine HAUSER, Fay Other Provider Unavailable Dr. Hina Maurice DO Other Provider Darian HAUSER, Dr. Bragg Other Provider [phone] Arcenio HAUSER, Dr. Dasilva Other Provider Lakeshia HAUSER, Dr. Wu Other Provider Dr. Krzysztof Estrada MD Other Provider [phone] Milad HAUSER, Dr. Carrera Other Provider Martín HAUSER, Dr. Suárez Other Provider [phone] Clarissa Easton MD Other Provider Yashira HAUSER, Dr. Monge Other Provider Ramy HAUSER, Dr. Paredes Other Provider [phone] London HAUSER, Dr. Grant Other Provider Dr. Bill Matthews MD Other Provider Jose Cruz HAUSER, Dr. Garcia Other Provider Deborah HAUSER, Dr. Odom Other Provider Vivian HAUSER, Dr. Patel Other Provider [phone] Luis HAUSER, Dr. Woodward Other Provider Unavailable Estella HAUSER, Jaky Other Provider Unavailable Silvestre HAUSER, Dr. Boyer Attending Provider Lexie HAUSER, Dr. Ochoa Attending Provider Unavailab winnie Rivers MD, Dr. Boyer Other Provider [phone] Wynn [employer], Leigha Primary Care Physician Wynn [employer], Leigha Attending Physician [phone] Wynn [employer], Leigha Referring Provider Phi Alonso DO, Dr. Rizzo Attending Physician Mitul HAUSER, Dr. Christopher Emergency Department Physici an Mitchell DO, Dr. Temple Admitting Physician Kimberlee vailable Mitchell DO, Dr. Temple Nurse Practitioner Unav ailable Jessica HAUSER, Horacio Nurse Practitioner Unavailable Lizzy HAUSER, Dr. Bridges Nurse Practitioner [phone] Fay Burkett MD Nurse Practitioner Unavailab winnie Maurice DO, Dr. Santamaria Nurse Practitioner Darian HAUSER, Dr. Bragg Nurse Practitioner Arcenio HAUSER, Dr. Dasilva Nurse Practitioner Lakeshia HAUSER, Dr. Wu Nurse Practitioner Dr. Krzysztof Estrada MD Nurse Practitioner Dr. Deandre Stinson MD Nurse Practitioner Martín HAUSER, Dr. Suáerz Nurse Practitioner Clarissa Easton MD Nurse Practitioner [...] Bryan HAUSER, Dr. Norton Attending Physician Kingsley [employer], Leigha Primary Care Unavailable Maverick Mitchell Admitting [...] Douglas Consulting Unavailable Lei Cabrera Consulting Unavailable Joreg Park Consulting Unavailable Crissy Smith Consulting Unavailable Jaky Soria Consulting Unavailable Maverick Mitchell Consulting Unavailable Kingsley [employer], Leigha Primary Care Unavailable So Jamison Referring UnavailSo Crooks Attending UnavailAmado Doyle Consulting Unavailable Wynn [employer], Leigha Primary Care Unavailable Errol Adams Referring Unavailable Errol Adams Attending Unavailable Errol Adams Attending Unavailable Wynn [employer], Leigha Primary Care Unavailable Wynn [employer], Leigha Referring Unavailable Wynn [employer], Leigha Primary Care Unavailable Kingsley [employer], Leigha Referring Unavailable Errol Adams Attending Unavailable Wynn [employer], Leigha Primary Care Unavailable Wynn [employer], Leigha Referring Unavailable So Jamison Attending Unavailabl e Wynn [employer], Leigha Referring Unavailable Wynn [employer], [facility] Primary Care Unavailable Errol Adams Attending Unavailable Wynn [employer], Leigha Referring Unavailable Wynn [employer], [facility] Primary Care Unavailable So Jamison Attending Unavailabl e Wynn [employer], [facility] Primary Care Unavailable Wynn [employer], Leigha Referring Unavailable Wynn [employer], Leigha Attending Unavailable Wynn [employer], [facility] Primary Care Unavailable Amado Alvarez Consulting Unavailable So Jamison Referring Unavailmartha Jamison, So Attending UnavailSo Crooks Consulting UnavailErrol Flood Attending Unavailable Wynn [employer], [facility] Primary Care Unavailable Errol Adams Referring Unavailable Errol Adams Consulting Unavailable Wynn [employer], [facility] Primary Care Unavailable Don Owen Attending Unavailable Wynn [employer], [facility] Primary Care Unavailable Maikol Sanchez Attending Unavailable Errol Adams Referring Unavailable Wnyn [employer], [facility] Primary Care Unavailable Horacio Lopez Consulting Unavailable [...] Attending Unavailable Merlin Rivers Consulting Unavailable Wynn [employer], [facility] Primary Care Unavailable So Jamison Referring UnavailSo Crooks Attending UnavailErrol Flood Attending Unavailable Wynn [employer], [facility] Primary Care Unavailable Errol Adams Referring Unavailable Salo Boles Attending Unavailable Wynn [employer], [facility] Primary Care Unavailable RamanaSalo Referring Unavailable Wynn [employer], [facility] Primary Care Unavailable So Jamison Attending Unavailabl e So Jamison Referring Unavailabl e Ramana, Salo Attending Unavailable Ramana, Salo Referring Unavailable Wynn [employer], [facility] Primary Care Unavailable Eron Daigle Referring Unavailable Wynn [employer], [facility] Primary Care Unavailable So Jamison Attending Unavailabl e Wynn [employer], [facility] Primary Care Unavailable Wynn [employer], Leigha Referring Unavailable So Jamison Attending Unavailabl e Ramana, Salo Attending Unavailable Wynn [employer], [facility] Primary Care Unavailable Wynn [employer], Leigha Referring Unavailable Wynn [employer], [facility] Primary Care Unavailable Maikol Sanchez Attending Unavailable Wynn [employer], [facility] Primary Care Unavailable Wynn [employer], Leigha Referring Unavailable Wynn [employer], Leigha Attending Unavailable Wynn [employer], Leigha Attending Unavailable Wynn [employer], [facility] Primary Care Unavailable Wynn [employer], Leigha Referring Unavailable Ramana, Salo Referring Unavailable Ramana, Salo Attending Unavailable Wynn [employer], [facility] Primary Care Unavailable Ramana, Salo Referring Unavailable Ramana, Salo Attending Unavailable Wynn [employer], [facility] Primary Care Unavailable Errol Adams Attending Unavailable Wynn [employer], [facility] Primary Care Unavailable Errol Adams Referring Unavailable Allergies Allergy Classification Reported Allergen(s) Allergy Type Date of Onset Reaction(s) Facility (1 source) Codeine Drug Allergy 12-10-19 15 [place], [place] (1 source) Iodine Drug Allergy 12-10-19 15 [place] (14 sources) Naproxen Drug Allergy 12-20-19 15 Shortness Of Breath [place], [place] (1 source) Penicillins Propensity to adverse reactions to drug 12-10-19 15 [place] (13 sources) Aspirin Drug Allergy 05-22-[address] [facility] Comment on above: swelling of hands (13 sources) levoFLOXacin Drug Allergy 05-22-[address] [facility] (13 sources) Penicillins Allergy to substance 05-22-[address] [facility] (13 sources) Triiodobenzoic Acids Allergy to substance 05-22-19 25 [facility] (1 source) Aspirin Drug Allergy 12-06-[address] [facility] Repository (1 source) levoFLOXacin Drug Allergy 12-06-[address] [facility] Repository (1 source) Naproxen Drug Allergy 12-06-[address] [facility] Repository (1 source) Penicillins Drug allergy (disorder) 12-06-[address] [facility] Repository (1 source) Iodinated Contrast Media Drug allergy (disorder) 12-06-[address] [facility] Repository Medications Current Medications Medication Drug [...] daily Start: 10-11-2024 take 1 tablet by [facility] once daily Ascorbic Acid (Vitamin C) (Acerola C) 500 mg tablet,chewable Active 500 mg PO DAILY October 11, 2024 12:00am vitamin cholecalciferol 0.05 mg oral capsule (20 sources) Vitamin D Start: 12-05-2024 [address] [facility] once daily Start: 09-20-2024 End: 10-11-2024 take [...] D3) 25 mcg (1,000 unit) capsule Discontinued 70267 ug PO EVERY WEEK March 19, 2024 [...] of syncope related to bowel movements and BRIQUETTE MOLDER reported seeing bowel within the hernia. Unfortunately [...] completed. Lastly, I reiterated the request from BRIQUETTE MOLDER that patient follow-up with her PCP regarding [...] this and confirm they will follow-up with [facility] physicians. 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 [place] [address] OFFICE VISIT Date of Service: 12/05/24 MR#: [id number] Acct: [id number] Name: SILKE LOPEZ Rep #: [id number] : 1965 Provider: Dr. Errol santiago MD Age/Sex: 59/F Location: [facility] Status: Signed with Addenda ADDENDUM by Dr. [...] of syncope related to bowel movements and BRIQUETTE MOLDER reported seeing bowel within the hernia. Unfortunately [...] completed. Lastly, I reiterated the request from BRIQUETTE MOLDER that patient follow-up with her PCP regarding [...] History chewa (more content not included)... Normal 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 Bedside Glucoseon 11-19-2024 FINGERSTICK GLU 81 mg/dL Normal 74-[address] [facility] Comment on above: Result Comment: [place] [place] OF PATIENT CARE PER NURSING PROTOCOL Performed By: #### L [id number] #### [facility] Laboratory [address] [facility] [address] [place], [address] Discharge Instructionon 10-29 Discharge Instruction [facility] Medical Records Department [address] [place] [address] Instructions for Home/Discharge Instructions 11/19/24 1003 MR#: [id number] Acct: [id number] Name: SILKE LOPEZ Rep #: [id number] : 1965 59 From: So Jamison DO [...] Consulting Providers: Amado Alvarez Instructions Print Language: Barbadian Discharge Orders/Prescriptions Prescriptions: New ibuprofen 800 mg [...] Referrals / Follow Up: Leigha Wynn NP, [employer] [Primary Care Provider, Family Practice] Disposition Disposition [...] Dr. Amado Alvarez MD * Signed Normal [facility] Glucose measurement at [facility] deOrdered By: So Alonso on 11-19-2024 Glucose [Mass/Vol] 81 mg/dL 74-106 [facility] Comment on above: MANAGEMENT OF PATIEN T CARE PER NURSING PROTOCOL MR/POSTOP.[facility] 11-19-2024 MR/POSTOP.[facility] Medical Records Department [address] [place] [address] Anesthesia Postop Eval I 11/19/24 1349 MR#: [id number] Acct: [id number] Name: SILKE LOPEZ Rep #: [id number] : 1965 59 From: Victorino Elias CRNA PCP: EDGAR Long Status:REG SDC Y Race: C Location: [place] [address] Anesthesia: Postop Eval I Current Vital Signs [...] completed: Yes 11/19/24 1350 Date Victorino Elias HIDE AND SKIN CLASSER Cosigner Signature: Date CC: Signed Normal [facility] MR/[id number] 11-19-2024 MR/POSTOPAN2 [facility] Medical Records Department [address] [place] [address] Anesthesia Postop Eval II 11/19/24 1509 MR#: [id number] Acct: [id number] Name: SILKE LOPEZ Rep #: [id number] : 1965 59 From: Virgie Parr HIDE AND SKIN CLASSER PCP: MARION LongC Status:REG SDC Y Race: C Location: [address] Anesthesia Postop Eval I Sum Postop Eval Completion status Anesthesia document: Postop Eval 1 completed: Yes Anesthesia Postop Eval I Summary Anesthesia Postop Eval I Summary: Anesthesia Postop Eval I: Assessment Summary Airway patent Yes 11/19/24 13:50 HIDE AND SKIN [email or web address] Spontaneous unlabored Yes 11/19/24 13:50 HIDE AND SKIN [email or web address].[email or web address] respirations Mental status Awake,Calm 11/19/24 13:50 HIDE AND SKIN [email or web address].JBLOU nausea No 11/19/24 13:50 HIDE AND SKIN [email or web address].JBLOU Vomiting No 11/19/24 13:50 HIDE AND SKIN [email or web address].JBLOU Anesthesia Postop Eval I: Fluid Summary Crystalloid volume administer 1,500 11/19/24 13:50 HIDE AND SKIN [email or web address].JBLOU (ml) Colloids volume administered ( ml) Blood Product volume administered (ml) Total IV fluid infused 1,500 11/19/24 13:50 HIDE AND SKIN [email or web address].JBLOU Anesthesia Postop Eval I: Summary Notes Anesthesia Complication No 11/19/24 13:50 HIDE AND SKIN [email or web address].JBLOU Anesthesia Complication Comment: Post-operative progress note Anesthesia: Postop Eval II Evaluation Mental status: Awake and Calm Pain Level: 2 nausea: No Vomiting: No Complications Anesthesia Complication: No 11/19/24 1509 Date Virgie Parr HIDE AND SKIN CLASSER Cosigner Signature: Date CC: Signed Normal [facility] Operative Reporton 5 Operative Report [facility] Medical Records Department [address] [place] [address] Operative Report 11/19/24 1309 MR#: [id number] Acct: [id number] Name: SILKE LOPEZ Rep #: [id number] : 1965 59 From: So Jamison DO PCP: EDGAR Long Status:REG [facility] Location: [address] Select Codes Urinary/Genital Urinary/Genital CPT Codes: 53863 Cystoscopy, 42356 Posterior colporrhaphy [place] 75131 TLH+BS/O <250gr uterus Operative Report (Standard) Operative Information Date of Procedure: 11/19/24 Pre-Operative Diagnosis: enlarged uterus, postmenopausal bleeding, endometrial hyperplasia without atypia, rectocele Post-Operative Diagnosis: enlarged uterus, postmenopausal bleeding, endometrial hyperplasia without atypia, rectocele Surgery/Procedure Performed: total robotic hysterectomy, bilateral salpingo-oophorectomy , cystoscopy, rectocele repair employee 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 Normal [facility] Surgery Specimen Level Von 0 11-19-2024 Surgery Specimen Level V -------- Patient Age/Sex Location Account Attending Physician -------- SILKE LOPEZ 59/F [facility] [id number] Yue Hall -------- Specimen: [id number] Received: 11/19/24 Status: SOHAM Ann Num: [id number] Spec Type: UTERUS Subm Dr: Dr. So [...] The specimen is inked as follows: Anterior-greenPosteri uq-wozptUrzbqwmnlaf-l range. Opening reveals a 7.0 x 3.3 [...] 1.8 x 1.0 x 0.8 cm (R). Hose Coupling Joiner sections are submitted as follows: A1: Anterior cervixA2: Posterior cervixA3: Anterior endomyometrium with intramural leiomyomaA4: Anterior endometrium, LUSA5: Anterior endometrium, midA6: Anterior endometrium, cornuA7: Posterior endometrium, LUSA8: Posterior endomyometrium with polyp -------- Patient Age/Sex Location Account Attending Physician -------- SILKE LOPEZ 59/F [facility] [id number] Yue Hall -------- #1(mid)A9: Posterior endomyometrium with polyp #2 (cornu)A10: Posterior endomyometrium (mid)A11: Left fallopian tubeA12: Left ywnyrA93: Right fallopian tubeA14: Right ovary SC 11/19/2024 A. The remainder of the endometrium is submitted, sequentially from the lower uterine segment to the fundus, following histopathologic review as follows: A15-A18: Anterior szqgusmrjxyN03-F23: Posterior endometrium SC 12/05/2024 CPT:35120 -------- ADDENDUM Addendum 1 Entered: 12/11/24 This addendum is to report the evaluation of additional endometrial tissue submitted at "regross": The endomyometrial junction has been totally submitted for histologic examination. No invasive carcinoma is seen. Focally there may be involvement of adenomyosis. Selected slides/images were reviewed in intradepartmental consultation by Dr Gila Wills (VIDEO JOURNALIST pathology division, [facility]). Addendum Signed (signature on file) Dr. Debbie Taylor MD 12/11/24 778 -------- -------- Patient Age/Sex Location Account Attending Physician -------- MARIA EUGENIASILKE BALBUENA 59/F [facility] [id number] Dr. So Jamison, (more content not included)... Normal [facility] Comment on above: Performed By: #### P SUV ####[facility] [address] [place], [place], [address] Absolute lymphocyte countOrd ered By: So Alonso on 2024 Lymphocytes Auto (Unsp spec) [#/Vol] 1.50 10*3/uL 0.83-4.[address] [facility] Absolute neutrophil countOrd ered By: So Alonso on 2024 Neutrophils (Bld) [#/Vol] 2.7 10*3/uL 2.0-7.[address] [facility] Anion gap in Serum or Plasma Ordered By: So Alonso on 2024 Anion gap [Moles/Vol] 12 mmol/L 5-15 [facility] Automated lymphocyte count a s percentage of total leukocytesOrdered By: So Alonso on 2024 Lymphocytes/100 WBC Auto (Unsp spec) 31.6 % 19-[address] [facility] BUN/creatinine ratioOrdered By: So Alonso on 2024 Urea nitrogen/Creatinine [Mass ratio] 24.4 mg/mg High 10-[address] [facility] Basophil percentageOrdered B y: So Alonso on 2024 Basophils/100 WBC (Bld) 1.1 % High 0-[address] [facility] Bilirubin, totalOrdered By: So Alonso on 2024 Bilirubin [Mass/Vol] 0.45 mg/dL 0.00-1.30 [facility] CBC W/Diff, Automatedon 10-28 Absolute Lymph 1.50 X10 3/uL Normal 0.83-4.[address] [facility] Comment on above: Performed By: #### B TSPAT, L500.4050, L501.9520, L100.0100, L506.1001 #### [facility] Laboratory [address] [place], [address] Absolute Neut 2.7 X10 3/uL Normal 2.0-7.[address] [facility] Comment on above: Performed By: #### B TSPAT, L500.4050, L501.9520, L100.0100, L506.1001 #### [facility] [address] [place], [address] Basophils/100 WBC (Bld) 1.1 % High 0-[address] [facility] Comment on above: Performed By: #### B TSPAT, L500.4050, L501.9520, L100.0100, L506.1001 #### [facility] [address] [place], [address] Eosinophils/100 WBC (Bld) 2.3 % Normal 0-[address] [facility] Comment on above: Performed By: #### B TSPAT, L500.4050, L501.9520, L100.0100, L506.1001 #### [facility] [address] [place], [address] Erythrocyte distribution width (RBC) [Ratio] 13.2 % Normal 11.6-14.[address] [facility] Comment on above: Performed By: #### B TSPAT, L500.4050, L501.9520, L100.0100, L506.1001 #### [facility] [address] [place], [address] Hematocrit (Bld) [Volume fraction] 43.9 % Normal 37-[address] [facility] Comment on above: Performed By: #### B TSPAT, L500.4050, L501.9520, L100.0100, L506.1001 #### [facility] [address] [place], [address] Hemoglobin (Bld) [Mass/Vol] 14.5 g/dL Normal 12.0-15.[address] [facility] Comment on above: Performed By: #### B TSPAT, L500.4050, L501.9520, L100.0100, L506.1001 #### [facility] Laboratory [address] [place], [address] IG% 0.200 Normal 0.0-0.[address] [facility] Comment on above: Result Comment: IG% - Immature Granulocytes (promyelocytes, myelocytes and metamyelocytes) > 1% indicates that a LEFT SHIFT is Present. Performed By: #### B TSPAT, L500.4050, L501.9520, L100.0100, L506.1001 #### [facility] [address] [place], [address] Lymphocytes/100 WBC (Bld) 31.6 % Normal 19-[address] [facility] Comment on above: Performed By: #### B TSPAT, L500.4050, L501.9520, L100.0100, L506.1001 #### [facility] [address] [place], [address] MCH (RBC) [Entitic mass] 32.3 pg High 27.0-32.[address] [facility] Comment on above: Performed By: #### B TSPAT, L500.4050, L501.9520, L100.0100, L506.1001 #### [facility] [address] [place], [address] MCHC (RBC) [Mass/Vol] 33.0 g/dL Normal 32-36 [facility] Comment on above: Performed By: #### B TSPAT, L500.4050, L501.9520, L100.0100, L506.1001 #### [facility] [address] [place], [address] MCV (RBC) [Entitic vol] 97.8 fL Normal 81-[address] [facility] Comment on above: Performed By: #### B TSPAT, L500.4050, L501.9520, L100.0100, L506.1001 #### [facility] [address] [place], [address] Monocytes/100 WBC (Bld) 7.8 % Normal 0-[address] [facility] Comment on above: Performed By: #### B TSPAT, L500.4050, L501.9520, L100.0100, L506.1001 #### [facility] [address] [place], [address] Neutrophils/100 WBC (Bld) 57.0 % Normal 47-[address] [facility] Comment on above: Performed By: #### B TSPAT, L500.4050, L501.9520, L100.0100, L506.1001 #### [facility] [address] [place], [address] Nucleated RBC (Bld) [#/Vol] 0 10*3/uL Normal 0-[address] [facility] Comment on above: Performed By: #### B TSPAT, L500.4050, L501.9520, L100.0100, L506.1001 #### [facility] [address] [place], [address] Platelet mean volume (Bld) [Entitic vol] 11.0 fL Normal 6.2-12.[address] [facility] Comment on above: Performed By: #### B TSPAT, L500.4050, L501.9520, L100.0100, L506.1001 #### [facility] [address] [place], [address] Platelets (Bld) [#/Vol] 293 10*3/uL Normal 150-[address] [facility] Comment on above: Performed By: #### B TSPAT, L500.4050, L501.9520, L100.0100, L506.1001 #### [facility] [address] [place], [address] RBC (Bld) [#/Vol] 4.49 10*6/uL Normal 4.2-5.4 [facility] Comment on above: Performed By: #### B TSPAT, L500.4050, L501.9520, L100.0100, L506.1001 #### [facility] [address] [place], [address] RDW SD 47.3 fl High 35.1-43.[address] [facility] Comment on above: Performed By: #### B TSPAT, L500.4050, L501.9520, L100.0100, L506.1001 #### [facility] [address] [place], [address] WBC (Bld) [#/Vol] 4.7 10*3/uL Normal 4.4-11.0 [facility] Comment on above: Performed By: #### B TSPAT, L500.4050, L501.9520, L100.0100, L506.1001 #### [facility] [address] [place], [address] Carbon dioxide, total [Moles /volume] in Central venous bloodOrdered By: So Alonso on 2024 CO2 [Moles/Vol] 24.7 mmol/L 21.0-32.[address] [facility] Chloride assayOrdered By: Reyes Alonso on 2024 Chloride [Moles/Vol] 107 mmol/L 98-108 [facility] Metabolic Prof ilon 2024 Albumin [Mass/Vol] 4.0 g/dL Normal 3.4-4.8 [facility] Comment on above: Performed By: #### B TSPAT, L500.4050, L501.9520, L100.0100, L506.1001 #### [facility] [address] [place], [address] Albumin/Globulin [Mass ratio] 1.6 {ratio} Normal 0.9-2.[address] [facility] Comment on above: Performed By: #### B TSPAT, L500.4050, L501.9520, L100.0100, L506.1001 #### [facility] [address] [place], [address] ALK PHOS 65 U/L Normal 35-[address] [facility] Comment on above: Performed By: #### B TSPAT, L500.4050, L501.9520, L100.0100, L506.1001 #### [facility] [address] [place], [address] ALT [Catalytic activity/Vol] 36 U/L High <=[address] [facility] Comment on above: Performed By: #### B TSPAT, L500.4050, L501.9520, L100.0100, L506.1001 #### [facility] [address] [place], [address] AST [Catalytic activity/Vol] 30 U/L Normal <=[address] [facility] Comment on above: Performed By: #### B TSPAT, L500.4050, L501.9520, L100.0100, L506.1001 #### [facility] [address] [place], [address] Bilirubin [Mass/Vol] 0.45 mg/dL Normal 0.00-1.30 [facility] Comment on above: Performed By: #### B TSPAT, L500.4050, L501.9520, L100.0100, L506.1001 #### [facility] [address] [place], [address] BUN/CRE 24.4 RATIO High 10-[address] [facility] Comment on above: Performed By: #### B TSPAT, L500.4050, L501.9520, L100.0100, L506.1001 #### [facility] [address] [place], [address] Calcium [Mass/Vol] 9.4 mg/dL Normal 7.6-11.0 [facility] Comment on above: Performed By: #### B TSPAT, L500.4050, L501.9520, L100.0100, L506.1001 #### [facility] [address] [place], [address] Chloride [Moles/Vol] 107 mmol/L Normal 98-108 [facility] Comment on above: Performed By: #### B TSPAT, L500.4050, L501.9520, L100.0100, L506.1001 #### [facility] [address] [place], [address] CO2 [Moles/Vol] 24.7 mmol/L Normal 21.0-32.[address] [facility] Comment on above: Performed By: #### B TSPAT, L500.4050, L501.9520, L100.0100, L506.1001 #### [facility] [address] [place], [address] Creatinine [Mass/Vol] 0.88 mg/dL Normal 0.70-1.20 [facility] Comment on above: Performed By: #### B TSPAT, L500.4050, L501.9520, L100.0100, L506.1001 #### [facility] [address] [place], [address] GAP 12 Normal 5-[address] [facility] Comment on above: Performed By: #### B TSPAT, L500.4050, L501.9520, L100.0100, L506.1001 #### [facility] [address] [place], [address] GFR/1.73 sq M.predicted among non-blacks MDRD (S/P/Bld) [Vol rate/Area] 75 mL/min/{1.73_m2} Normal >[address] [facility] Comment on above: Result Comment: mL/m in/1.73m2 CKD-EPI Creatinine Equation (2020) Performed By: #### B TSPAT, L500.4050, L501.9520, L100.0100, L506.1001 #### [facility] [address] [place], [address] Globulin (S) [Mass/Vol] 2.6 g/dL Normal 2.2-4.[address] [facility] Comment on above: Performed By: #### B TSPAT, L500.4050, L501.9520, L100.0100, L506.1001 #### [facility] [address] [place], [address] Glucose [Mass/Vol] 84 mg/dL Normal 70-99 [facility] Comment on above: Performed By: #### B TSPAT, L500.4050, L501.9520, L100.0100, L506.1001 #### [facility] [address] [place], [address] Potassium [Moles/Vol] 4.5 mmol/L Normal 3.3-5.1 [facility] Comment on above: Performed By: #### B TSPAT, L500.4050, L501.9520, L100.0100, L506.1001 #### [facility] [address] [place], [address] Sodium [Moles/Vol] 143 mmol/L Normal 133-145 [facility] Comment on above: Performed By: #### B TSPAT, L500.4050, L501.9520, L100.0100, L506.1001 #### [facility] [address] [place], [address] T PROT 6.6 g/dL Normal 5.9-8.[address] [facility] Comment on above: Performed By: #### B TSPAT, L500.4050, L501.9520, L100.0100, L506.1001 #### [facility] [address] [place], [address] Urea nitrogen [Mass/Vol] 21 mg/dL High 4-[address] [facility] Comment on above: Performed By: #### B TSPAT, L500.4050, L501.9520, L100.0100, L506.1001 #### [facility] [address] [place], [address] Eosinophil percentageOrdered By: So Alonso on 2024 Eosinophils/100 WBC (Bld) 2.3 % 0-[address] [facility] Erythrocyte distribution wid th ratioOrdered By: So Alonso on 2024 Erythrocyte distribution width (RBC) [Ratio] 13.2 % 11.6-14.[address] [facility] Erythrocyte distribution wid th standard deviationOrdered By: So Alonso on 2024 Erythrocyte distribution width (RBC) [Ratio] 47.3 fl High 35.1-43.[address] [facility] Glomerular filtration rate ( GFR) estimation/1.73 sq m using serum, plasma, or whole bOrdered By: So Alonso on 2024 GFR/1.73 sq M.predicted among non-blacks MDRD (S/P/Bld) [Vol rate/Area] 75 mL/min/{1.73_m2} >[address] [facility] Comment on above: mL/min/1.73m2 CKD-EP I Creatinine Equation (2020) Hematocrit Auto (Bld) [Volum e fraction]Ordered By: So Alonso on 2024 Hematocrit (Bld) [Volume fraction] 43.9 % 37-[address] [facility] Hemoglobin measurementOrdere d By: So Alonso on 2024 Hemoglobin (Bld) [Mass/Vol] 14.5 g/dL 12.0-15.[address] [facility] Immature granulocytes/100 WB C Auto (Bld)Ordered By: So Alonso on 2024 Immature granulocytes/100 WBC (Bld) 0.200 % 0.0-0.[address] [facility] Comment on above: IG% - Immature Granu locytes (promyelocytes, myelocytes and metamyelocytes) > 1% indicates that a LEFT SHIFT is Present. Laboratory - Chemistry and C hemistry - challengeOrdered By: So Alonso on 2024 AST [Catalytic activity/Vol] 30 U/L <[address] [facility] MCV (mean corpuscular volume ) determinationOrdered By: So Alonso on 2024 MCV (RBC) [Entitic vol] 97.8 fL 81-[address] [facility] Magnesiumon 2024 Magnesium [Mass/Vol] 2.4 mg/dL High 1.5-2.2 [facility] Comment on above: Performed By: #### L 501.5200 #### [facility] [address] [place], [place] [address], [address] Magnesium measurement (mass/ volume)Ordered By: Amado Alvarez on 2024 Magnesium (Unsp spec) [Mass/Vol] 2.4 mg/dL High 1.5-2.[address] [facility] Mean corpuscular hemoglobin (MCH) determinationOrdered By: So Alonso on 2024 MCH (RBC) [Entitic mass] 32.3 pg High 27.0-32.[address] [facility] Mean corpuscular hemoglobin concentration (MCHC) determinationOrdered By: So Alonso on 2024 MCHC (RBC) [Mass/Vol] 33.0 g/dL 32-36 [facility] Mean platelet volume determi nationOrdered By: So Alonso on 2024 Platelet mean volume (Bld) [Entitic vol] 11.0 fL 6.2-12.[address] [facility] Monocyte percentageOrdered B y: So Alonso on 2024 Monocytes/100 WBC (Bld) 7.8 % 0-[address] [facility] Neutrophil percentageOrdered By: So Alonso on 2024 Neutrophils/100 WBC (Bld) 57.0 % 47-[address] [facility] Nucleated red blood cell per centageOrdered By: So Alonso on 2024 Nucleated RBC/100 WBC (Bld) [Ratio] 0 % 0-[address] [facility] Platelet countOrdered By: Reyes Alonso on 2024 Platelets (Bld) [#/Vol] 293 10*3/uL 150-[address] [facility] Potassium measurement (mass/ volume)Ordered By: So Alonso on 2024 Potassium (Unsp spec) [Mass/Vol] 4.5 mmol/L 3.3-5.[address] [facility] RBC Auto (Bld) [#/Vol]Ordere d By: So Alonso on 2024 RBC (Bld) [#/Vol] 4.49 10*6/uL 4.2-5.4 [facility] Serum creatinine measurement (mass/volume)Ordered By: So Alonso on 2024 Creatinine [Mass/Vol] 0.88 mg/dL 0.70-1.20 [facility] Serum globulin measurementOr dered By: So Alonso on 2024 Globulin (S) [Mass/Vol] 2.6 g/dL 2.2-4.[address] [facility] Serum glucose measurement (m ass/volume)Ordered By: So Alonso on 2024 Glucose [Mass/Vol] 84 mg/dL 70-99 [facility] Serum or plasma alanine ortiz otransferase (ALT) measurementOrdered By: So Alonso on 2024 ALT [Catalytic activity/Vol] 36 U/L High <[address] [facility] Serum or plasma albumin leta urement (mass/volume)Ordered By: So Alonso on 2024 Albumin [Mass/Vol] 4.0 g/dL 3.4-4.8 [facility] Serum or plasma albumin/glob ulin mass ratioOrdered By: So Alonso on 2024 Albumin/Globulin [Mass ratio] 1.6 {ratio} 0.9-2.[address] [facility] Serum or plasma alkaline ailyn sphatase measurementOrdered By: So Alonso on 2024 ALP [Catalytic activity/Vol] 65 U/L 35-[address] [facility] Serum or plasma calcium leta urement (mass/volume)Ordered By: So Alonso on 2024 Calcium [Mass/Vol] 9.4 mg/dL 7.6-11.0 [facility] Serum or plasma urea nitroge n measurement (mass/volume)Ordered By: So Alonso on 2024 Urea nitrogen [Mass/Vol] 21 mg/dL High 4-[address] [facility] Sodium levelOrdered By: Rita Alonso on 2024 Sodium [Moles/Vol] 143 mmol/L 133-145 [facility] TSH DL <= 0.005 mIU/L QnOrde red By: So Alonso on 2024 TSH Qn 2.440 uIU/mL 0.300-4.[address] [facility] Thyroid Stim Hormone (TSH)on 2024 TSH 2.440 uIU/mL Normal 0.300-4.[address] [facility] Comment on above: Performed By: #### B TSPAT, L500.4050, L501.9520, L100.0100, L506.1001 #### [facility] [address] [place], [address] Total proteinOrdered By: Moriah Alonso on 2024 Protein [Mass/Vol] 6.6 g/dL 5.9-8.4 [facility] Type AND Screen - PAT ONLYon 2024 Ab SCREEN GEL Negative Normal [facility] Comment on above: Order Comment: [id number] N N S [id number] TOTAL HYSTERERCTOMY BSO PREOP Performed By: #### B TSPAT, L500.4050, L501.9520, L100.0100, L506.1001 #### [facility] [address] [place], [address] Vitamin D,25 Hydroxyon 11-12 Vitamin D 25-OH 36.5 ng/mL Normal 30-[address] [facility] Comment on above: Result Comment: Magdalena min D Status Deficiency: <20 ng/mL (50nmol/L) Insufficiency: 20-30 ng/mL (50-75 nmol/L) Sufficiency: 30-100 ng/mL (75-250 nmol/L) Toxicity: >100 ng/mL (>250 nmol/L) Performed By: #### B TSPAT, L500.4050, L501.9520, L100.0100, L506.1001 #### [facility] [address] [facility] [place], [address] White blood cell (WBC) count Ordered By: So Alonso on 2024 WBC (Bld) [#/Vol] 4.7 10*3/uL 4.4-11.0 [facility] MR/PATJudi 11-05-2024 MR/PATEMILY [facility] Medical Records Department [address] [facility] [place] [address] PAT - Anesthesia 11/05/24 1612 MR#: [id number] Acct: [id number] Name: SILKE LOPEZ Rep #: [id number] : 1965 58 From: Amado Alvarez MD PCP: EDGAR Long Status:PRE [facility] Y Race: C Location: [facility] Pre-Assessment Diagnosis/Proposed Procedure Planned Operative Procedure(s): TOTAL ROBOTIC HYSTERECTOMY BILATERAL SALPINGO-OOPHORECOTMY , CYTSOSCOPY, RECTOCELE REPAIR Anesthesia History 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 Hx Hospitalization Yes: SEP 2024 11/05/24 13:07 [...] take am of surgery PONV PONV - 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 Female Yes 11/05/24 13:07 HX of Motion [...] 09/20/24 15:54 Respiratory Assessment Respiratory Assessment - beach attendant: Respiratory Tract Infection Hx - beach attendant Hx Respiratory Tract Infection No 11/05/24 13:07 STOP Sleep Apnea STOP Sleep Apnea - beach attendant: STOP Sleep Apnea - beach attendant Hx Hypertension No 11/05/24 13:07 Hx Sleep [...] Tobacco Use History 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 Tobacco Use Smoking Status Never smoker 11/05/24 13:07 Hx Tobacco Use No 11/05/24 13:07 Years Smoking Packs Smoked per Day Smoking Cessation Date was within the last 15 years Hx Smoking Cessation Date Hx Smoking Cessation Counseling Hematologic Medial History Hematologic Hx - beach attendant: 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 Normal 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 Normal [facility] 12 Lead EKGon 10-12-2024 12 Lead EKG [facility] Cardiovascular Services [address] [place] [address] 12 Lead EKG 10/12/24 0035 MR#: [id number] Acct: [id number] Name: SILKE LOPEZ Rep #: [id number] : 1965 58 From: Maikol Sanchez MD Attending Dr: Dr. Merlin Rivers MD Status: DIS PARKER Ordering Dr: Maverick Mitchell DO Date: 10/12/24 Location: [facility] Sex: F C Admitted: 10/11/24 Test Reason [...] UNCONFIRMED Confirmed by MAIKOL SANCHEZ MD ([id number]), social media editor RAY HAUSER ([id number]) on 10/15/2024 6:14:52 AM Referred By: Confirmed By: MAIKOL SANCHEZ MD 10/15/24 0614 Date Maikol Sanchez MD CC: EDGAR Wynn; Dr. Maverick Mitchell DO; Dr. Merlin Rivers MD Signed Normal [facility] Amphetamine detection with 1 000 ng/mL as cutoffOrdered By: Maverick Abdalla on 10-12-2024 Amphetamines Screen method >1000 ng/mL Ql (U) Negative < 200 ng/mL [facility] Brain without Contraston Brain without Contrast [facility] Imaging Services [address] [place] [address] Brain without Contrast MR#: [id number] Acct: [id number] Name: SILKE LOPEZ Rep #: [id number] : 1965 F 58 From: Mary Ann Walters MD PCP: EDGAR Long Status: ADM PARKER Study: Brain without Contrast Date of Exam: 10/12/24 Exam# [id number] Ordering Dr: Maverick Mitchell DO PROCEDURE: BRAIN WITHOUT CONTRAST 10/12/2024 REASON [...] IMPRESSION: No acute intracranial abnormality. Reading Location: [facility] CC: ISRRAEL-Dilma Wynn; Dr. Maverick Mitchell DO Vaccine Customer Representative: Signed Normal [facility] Calculated very low density lipoprotein (VLDL) cholesterol measurementOrdered By: Maverick Abdalla on 10-12-2024 Calculated very low density lipoprotein (VLDL) cholesterol measurement 7 mg/dL 5-[address] [facility] Discharge Instructionon 09-27 Discharge Instruction [facility] Medical Records Department [address] [place] [address] Instructions for Home/Discharge Instructions 10/12/24 1141 MR#: [id number] Acct: [id number] Name: SILKE LOPEZ Rep #: [id number] : 1965 58 From: Merlin Rivers MD [...] Month (Possible complicated migraine) Leigha Wynn NP, MEMBER OF THE [employer] [Primary Care Provider] - Within 2 Weeks [...] Easton DO; Jaky Soria MD Signed Normal [facility] Folates,Serum (Folic Acid)on 10-12-2024 FOLATES,SERUM 10.50 ng/mL Normal 4.60-34.[address] [facility] Comment on above: Result Comment: Hemo lysis, Results will be affected, Requires Recollection. Performed By: #### L 506.0200 ####[facility] [address] [place], [address] L501.4021on 10-12-2024 Trop T High Sen 6 ng/L Normal <=[address] [facility] Comment on above: Performed By: #### L 501.9520 #### [facility] [address] [place], [address] LDL calc ser/plasOrdered By: Maverick Abdalla on 10-12-2024 Cholesterol in LDL [Mass/Vol] 147 mg/dL [facility] Comment on above: Atxlbwhzzi=779-285 m g/dL & Higher Qusf=818 mg/dL or greaterFriedwald Equation for LDL-C Limited echocardiogram repor tOrdered By: Don Owen on 10-12-2024 Study report [facility] Cardiovascular Services [address] [place] [address] Echo, Limited Study 10/12/24 0815 MR#: [id number] Acct: [id number] Name: SILKE LOPEZ Rep #:[id number] : 1965 58 From: Don Turner Attending Dr: Dr. Merlin Rivers MD Status: ADM PARKER Ordering Dr: Maverick Mitchell DO Date: 10/11/24 Location: [facility] Sex: F C Admitted: 10/11/24 Reason For [...] Date Dictated: 10/12/24814 Date Transcribed: 10/12/24 1207 Vaccine Customer Representative: Signed [facility] Lipid Profileon 10-12-2024 CHOL:HDL 4.[address] [facility] Comment on above: Order Comment: Comme nts: NPO at [place] prior to lipid panel Performed By: #### L 501.9520 #### [facility] [address] [place], [address] Cholesterol [Mass/Vol] 194 mg/dL Normal <=200 [facility] Comment on above: Order Comment: Comme nts: NPO at [place] prior to lipid panel Result Comment: Chol esterol level, Desirable <200 mg/dL Borderline high cholesterol 200-239 mg/dL High cholesterol >=240 mg/dL Recommendations of the NCEP Adult Treatment Panel for the following risk-cutoff thresholds for the [place] population. Performed By: #### L 501.9520 #### [facility] [address] [place], [address] Cholesterol in HDL [Mass/Vol] 40 mg/dL Normal [facility] Comment on above: Order Comment: Comme [...] age. Performed By: #### L 501.9520 #### [facility] [address] [place], [address] Cholesterol in LDL [Mass/Vol] 147 mg/dL Normal [facility] Comment on above: Order Comment: Comme nts: NPO at [place] prior to lipid panel Result Comment: Bord ujoitb=171-605 mg/dL Higher Pkrl=936 mg/dL or greater Friedwald Equation for LDL-C Performed By: #### L 501.9520 #### [facility] [address] [place], [address] Cholesterol in VLDL [Mass/Vol] 7 mg/dL Normal 5-[address] [facility] Comment on above: Order Comment: Comme nts: NPO at MN prior to lipid panel Performed By: #### L 501.9520 #### [facility] [address] [place], [address] Triglyceride [Mass/Vol] 37 mg/dL Normal [facility] Comment on above: Order Comment: Comme nts: NPO at MN prior to lipid panel Result Comment: The drugs N-Acetylcysteine and Metamizole may falsely depress this assay. Normal range: <150 mg/dL Borderline High: 150-199 mg/dL High: 200-499 mg/dL Very High: >500 mg/dL Performed By: #### L 501.9520 #### [facility] [address] [place], [address] MR/CON.PCM.NEon 10-12-2024 MR/CON.PCM.NE [facility] Medical Records Department [address] [place] [address] Consultation - Neurology 10/12/24 1027 MR#: [id number] Acct: [id number] Name: SILKE LOPEZ Rep #: [id number] : 1965 58 From: Mahsa Farmer MD PCP: EDGAR Long Status:DIS PARKER Location: [place] [address] Assessment and Plan: Neuro Assessment/Plan SILKE LOPEZ [...] and OA; on glucosamine who presents to [facility] ER complaining of slurred speech and [...] nails b (more content not included)... Normal [facility] Magnetic resonance imaging r eportOrdered By: Mary Ann Walters on 10-12-2024 Study report [facility] Imaging [place] [address] Brain without Contrast MR#: [id number] Acct: [id number] Name: SILKE LOPEZ Rep #: [id number] : 1965 F 58 From: Michel Walters MD PCP: EDGAR Long Status: ADM IN O Study:Brain without Contrast Date of Exam: 10/12/24 Exam# [id number] Ordering Dr: Maverick Díaz DO PROCEDURE: BRAIN [...] IMPRESSION: No acute intracranial abnormality. Reading Location: [facility] CC: [employer]-Dilma Wynn; Dr. Maverick Mitchell DO ~ Vaccine Customer Representative: Signed [facility] No Panel InformationOrdered By: Maverick Abdalla on 10-12-2024 Urine Buprenorphine Qualitative Negative < 200 ng/mL [facility] Urine Oxycodone Screen Negative < 100 ng/mL [facility] Quantitative urine opiates m easurementOrdered By: Maverick Abdalla on 10-12-2024 Opiates Ql (U) Negative < 300 ng/mL [facility] Screening total cholesterol/ high density lipoprotein (HDL) cholesterol ratioOrdered By: Maverick Abdalla on 10-12-2024 Cholesterol.total/Chol esterol in HDL [Mass ratio] 4.87 {ratio} [facility] Screening urine fentanyl vishnu surementOrdered By: Maverick Abdalla on 10-12-2024 fentaNYL Screen Ql (U) Negative [facility] Serum or plasma cholesterol in HDL measurement (mass/volume)Ordered By: Maverick Abdalla on 10-12-2024 Cholesterol in HDL [Mass/Vol] 40 mg/dL >[address] [facility] Comment on above: National Cholesterol Education Program (NCEP) guidelines:<40 mg/dL: Low HDL-cholesterol (major risk factor for CHD)>= 60 mg/dL: High HDL-cholesterol (negative risk factor for CHD)HDL-cholesterol is affected by a number of factors, e.g. smoking, exercise, hormones, sex and age. Serum or plasma cholesterol measurement (mass/volume)Ordered By: Maverick Abdalla on 10-12-2024 Cholesterol [Mass/Vol] 194 mg/dL <201 [facility] Comment on above: Cholesterol level, D esirable <200 mg/dLBorderline high cholesterol 200-239 mg/dLHigh cholesterol >=240 mg/dLRecommendations of the NCEP Adult Treatment Panel for the following risk-cutoff thresholds for the [place] population. Triglycerides measurementOrd ered By: Maverick Abdalla on 10-12-2024 Triglyceride [Mass/Vol] 37 mg/dL <[address] [facility] Comment on above: The drugs N-Acetylcy steine and Metamizole may falsely depress this assay. Normal range: <150 mg/dLBorderline High: 150-199 mg/dLHigh: 200-499 mg/dLVery High: >500 mg/dL Troponin T HS 2 HRon 025 Trop T High Sen < 6 Normal <=[address] [facility] Comment on above: Performed By: #### L 501.9520 #### [facility] [address] [place], [place], [address] Troponin T HS 4 HRon 025 Trop T High Sen 7 ng/L Normal <=[address] [facility] Comment on above: Performed By: #### L 499.0043 ####[facility] [address] [place], [place], [address] Troponin T.cardiac [Mass/vol ume] in Serum or Plasma by High sensitivity methodOrdered By: Maverick Abdalla on 10-12-2024 Troponin T.cardiac High sensitivity method [Mass/Vol] 7 ng/L <[address] [facility] Troponin T.cardiac High sensitivity method [Mass/Vol] < 6 ng/L <[address] [facility] Troponin T.cardiac High sensitivity method [Mass/Vol] 6 ng/L Invalid Interpretation Code <[address] [facility] Comment on above: Delta: 10 on 5-1730 Urine Drug Screen (VISTA)on 10-12-2024 BUP Ur Drug Scr Negative Normal < 200 ng/mL [facility] Comment on above: Performed By: #### L 501.9520 #### [facility] [address] [place], [address] Urine benzodiazepine levelOr dered By: Maverick Abdalla on 10-12-2024 Benzodiazepines Ql (U) Negative < 200 ng/mL [facility] Urine cocaine levelOrdered B y: Maverick Abdalla on 10-12-2024 Cocaine Ql (U) Negative < 300 ng/mL [facility] Urine cgcbx-1-bjrzzwcawhplmz abinol (THC) measurementOrdered By: Maverick Abdalla on 10-12-2024 Cannabinoids Screen Ql (U) Negative < 50 ng/mL [facility] Urine phencyclidine (PCP) de tectionOrdered By: Maverick Abdalla on 10-12-2024 Phencyclidine Ql (U) Negative < 25 ng/mL [facility] Vitamin B12on 10-12-2024 Cobalamin (Vitamin B12) [Mass/Vol] 446 pg/mL Normal 180-[address] [facility] Comment on above: Performed By: #### L 503.0106 ####[facility] [address] [place], [address] Vitamin B12 ser/plasOrdered By: Maverick Abdalla on 10-12-2024 Cobalamin (Vitamin B12) [Mass/Vol] 446 pg/mL 180-[address] [facility] 12 Lead EKGon 10-11-2024 12 Lead EKG [facility] Cardiovascular Services [address] [place] [address] 12 Lead EKG 10/11/24 1739 MR#: [id number] Acct: [id number] Name: SILKE LOPEZ Rep #: [id number] : 1965 58 From: Maikol Sanchez MD Attending Dr: Dr. Merlin Rivers MD Status: DIS PARKER Ordering Dr: Ashwin Bauman MD Date: 10/11/24 Location: [facility] Sex: F C Admitted: 10/11/24 Test Reason : STROKE Blood Pressure : */* mmHG Vent. Rate : 62 BPM Atrial Rate : 62 BPM P-R Int : 162 ms QRS Dur : 94 ms QT Int : 430 ms P-R-T Axes : 35 0 43 degrees QTcB Int : 436 ms Normal sinus rhythm Normal ECG Confirmed by MAIKOL SANCHEZ MD ([id number]), social media editor LIN DAS ([id number]) on 10/14/2024 9:17:39 AM Referred By: Confirmed By: MAIKOL SANCHEZ MD 10/14/24 0917 Date Maikol Sanchez MD CC: EDGAR Wynn; Dr. Ashwin Bauman MD; Dr. Merlin Rivers MD Signed Normal [facility] Absolute lymphocyte countOrd ered By: Ashwin Bauman on 10-11-2024 Lymphocytes Auto (Unsp spec) [#/Vol] 1.59 10*3/uL 0.83-4.[address] [facility] Absolute neutrophil countOrd ered By: Ashwin Bauman on 10-11-2024 Neutrophils (Bld) [#/Vol] 3.6 10*3/uL 2.0-7.[address] [facility] Activated partial thrombopla stin time (aPTT) in platelet poor plasma by coagulation aOrdered By: Ashwin Bauman on 10-11-2024 aPTT Coag (PPP) [Time] 34.4 s 24.1-36.2 [facility] Alcohol, Blood (Medical)-Ser umon 10-11-2024 SERUM ETOH < 10.1 Normal <=10.[address] [facility] Comment on above: Result Comment: This test is for medical purposes only. The legal definition of intoxication varies according to local law. Performed By: #### L 501.9520 #### [facility] [address] [place], [address] Anion gap in Serum or Plasma Ordered By: Ashwin Bauman on 10-11-2024 Anion gap [Moles/Vol] 11 mmol/L 07-11 [facility] Automated lymphocyte count a s percentage of total leukocytesOrdered By: Ashwin Bauman on 10-11-2024 Lymphocytes/100 WBC Auto (Unsp spec) 27.4 % [facility] BUN/creatinine ratioOrdered By: Ashwin Bauman on 10-11-2024 Urea nitrogen/Creatinine [Mass ratio] 30.0 mg/mg High 12-[address] [facility] Basic Metabolic Profile (BMP )on 10-11-2024 BUN/CRE 30.0 RATIO [address] [facility] Comment on above: Performed By: #### L 300.4310, L300.3900, L501.4021, L100.0100, L500.2500 ####[facility] [address] [place], [address] Calcium [Mass/Vol] 9.2 mg/dL Normal 7.6-11.0 [facility] Comment on above: Performed By: #### L 300.4310, L300.3900, L501.4021, L100.0100, L500.2500 ####[facility] [address] [place], [address] Chloride [Moles/Vol] 106 mmol/L Normal 98-108 [facility] Comment on above: Performed By: #### L 300.4310, L300.3900, L501.4021, L100.0100, L500.2500 ####[facility] [address] [place], [address] CO2 [Moles/Vol] 24.3 mmol/L Normal 21.0-32.[address] [facility] Comment on above: Performed By: #### L 300.4310, L300.3900, L501.4021, L100.0100, L500.2500 ####[facility] [address] [place], [address] Creatinine [Mass/Vol] 0.92 mg/dL Normal 0.70-1.20 [facility] Comment on above: Performed By: #### L 300.4310, L300.3900, L501.4021, L100.0100, L500.2500 ####[facility] [address] [place], [address] ECRCL 74.73 ml/min Normal 50-[address] [facility] Comment on above: Performed By: #### L 300.4310, L300.3900, L501.4021, L100.0100, L500.2500 ####[facility] [address] [place], [place], [phone] GAP 11 Normal 5-[address] [facility] Comment on above: Performed By: #### L 300.4310, L300.3900, L501.4021, L100.0100, L500.2500 ####[facility] [address] [place], [address] GFR/1.73 sq M.predicted among non-blacks MDRD (S/P/Bld) [Vol rate/Area] 72 mL/min/{1.73_m2} Normal >[address] [facility] Comment on above: Result Comment: mL/m in/1.73m2 CKD-EPI Creatinine Equation (2020) Performed By: #### L 300.4310, L300.3900, L501.4021, L100.0100, L500.2500 ####[facility] [address] [place], [address] Glucose [Mass/Vol] 109 mg/dL High 70-99 [facility] Comment on above: Performed By: #### L 300.4310, L300.3900, L501.4021, L100.0100, L500.2500 ####[facility] [address] [place], [address] Potassium [Moles/Vol] 4.0 mmol/L Normal 3.3-5.1 [facility] Comment on above: Performed By: #### L 300.4310, L300.3900, L501.4021, L100.0100, L500.2500 ####[facility] [address] [place], [address] Sodium [Moles/Vol] 141 mmol/L Normal 133-145 [facility] Comment on above: Performed By: #### L 300.4310, L300.3900, L501.4021, L100.0100, L500.2500 ####[facility] [address] [place], [address] Urea nitrogen [Mass/Vol] 28 mg/dL High 4-[address] [facility] Comment on above: Performed By: #### L 300.4310, L300.3900, L501.4021, L100.0100, L500.2500 ####[facility] [address] [place], [address] Basophil percentageOrdered B y: Ashwin Bauman on 10-11-2024 Basophils/100 WBC (Bld) 0.7 % 0-[address] [facility] Bedside Glucoseon 10-11-2024 FINGERSTICK GLU 139 mg/dL High 74-[address] [facility] Comment on above: Result Comment: [facility] OF PATIENT CARE PER NURSING PROTOCOL Performed By: #### L 501.5200 #### [facility] [address] [place], [address] CBC W/Diff, Automatedon 09-27 Absolute Lymph 1.59 X10 3/uL Normal 0.83-4.[address] [facility] Comment on above: Performed By: #### L 300.4310, L300.3900, L501.4021, L100.0100, L500.2500 ####[facility] [address] [place], [address] Absolute Neut 3.6 X10 3/uL Normal 2.0-7.[address] [facility] Comment on above: Performed By: #### L 300.4310, L300.3900, L501.4021, L100.0100, L500.2500 ####[facility] [address] [place], [address] Basophils/100 WBC (Bld) 0.7 % Normal 0-[address] [facility] Comment on above: Performed By: #### L 300.4310, L300.3900, L501.4021, L100.0100, L500.2500 ####[facility] [address] [place], [address] Eosinophils/100 WBC (Bld) 2.4 % Normal 0-[address] [facility] Comment on above: Performed By: #### L 300.4310, L300.3900, L501.4021, L100.0100, L500.2500 ####[facility] [address] [place], [address] Erythrocyte distribution width (RBC) [Ratio] 13.3 % Normal 11.6-14.[address] [facility] Comment on above: Performed By: #### L 300.4310, L300.3900, L501.4021, L100.0100, L500.2500 ####[facility] [address] [place], [address] Hematocrit (Bld) [Volume fraction] 40.3 % Normal 37-[address] [facility] Comment on above: Performed By: #### L 300.4310, L300.3900, L501.4021, L100.0100, L500.2500 ####[facility] [address] [place], [address] Hemoglobin (Bld) [Mass/Vol] 13.3 g/dL Normal 12.0-15.[address] [facility] Comment on above: Performed By: #### L 300.4310, L300.3900, L501.4021, L100.0100, L500.2500 ####[facility] [address] [place], [address] IG% 0.300 Normal 0.0-0.[address] [facility] Comment on above: Result Comment: IG% - Immature Granulocytes (promyelocytes, myelocytes and metamyelocytes) > 1% indicates that a LEFT SHIFT is Present. Performed By: #### L 300.4310, L300.3900, L501.4021, L100.0100, L500.2500 ####[facility] [address] [place], [address] Lymphocytes/100 WBC (Bld) 27.4 % Normal 19-[address] [facility] Comment on above: Performed By: #### L 300.4310, L300.3900, L501.4021, L100.0100, L500.2500 ####[facility] [address] [place], [address] MCH (RBC) [Entitic mass] 31.6 pg Normal 27.0-32.[address] [facility] Comment on above: Performed By: #### L 300.4310, L300.3900, L501.4021, L100.0100, L500.2500 ####[facility] [address] [place], [address] MCHC (RBC) [Mass/Vol] 33.0 g/dL Normal 32-36 [facility] Comment on above: Performed By: #### L 300.4310, L300.3900, L501.4021, L100.0100, L500.2500 ####[facility] [address] [place], [address] MCV (RBC) [Entitic vol] 95.7 fL Normal 81-[address] [facility] Comment on above: Performed By: #### L 300.4310, L300.3900, L501.4021, L100.0100, L500.2500 ####[facility] [address] [place], [address] Monocytes/100 WBC (Bld) 7.1 % Normal 0-[address] [facility] Comment on above: Performed By: #### L 300.4310, L300.3900, L501.4021, L100.0100, L500.2500 ####[facility] [address] [place], [address] Neutrophils/100 WBC (Bld) 62.1 % Normal 47-[address] [facility] Comment on above: Performed By: #### L 300.4310, L300.3900, L501.4021, L100.0100, L500.2500 ####[facility] [address] [place], [address] Nucleated RBC (Bld) [#/Vol] 0 10*3/uL Normal 0-[address] [facility] Comment on above: Performed By: #### L 300.4310, L300.3900, L501.4021, L100.0100, L500.2500 ####[facility] [address] [place], [address] Platelet mean volume (Bld) [Entitic vol] 10.9 fL Normal 6.2-12.[address] [facility] Comment on above: Performed By: #### L 300.4310, L300.3900, L501.4021, L100.0100, L500.2500 ####[facility] [address] [place], [address] Platelets (Bld) [#/Vol] 288 10*3/uL Normal 150-[address] [facility] Comment on above: Performed By: #### L 300.4310, L300.3900, L501.4021, L100.0100, L500.2500 ####[facility] [address] [place], [address] RBC (Bld) [#/Vol] 4.21 10*6/uL Normal 4.2-5.4 [facility] Comment on above: Performed By: #### L 300.4310, L300.3900, L501.4021, L100.0100, L500.2500 ####[facility] [address] [place], [address] RDW SD 46.7 fl High 35.1-43.[address] [facility] Comment on above: Performed By: #### L 300.4310, L300.3900, L501.4021, L100.0100, L500.2500 ####[facility] [address] [place], [address] WBC (Bld) [#/Vol] 5.8 10*3/uL Normal 4.4-11.0 [facility] Comment on above: Performed By: #### L 300.4310, L300.3900, L501.4021, L100.0100, L500.2500 ####[facility] [address] [place], [address] Carbon dioxide, total [Moles /volume] in Central venous bloodOrdered By: Ashwin Bauman on 10-11-2024 CO2 [Moles/Vol] 24.3 mmol/L 21.0-32.[address] [facility] Chloride assayOrdered By: Reyes Bauman on 10-11-2024 Chloride [Moles/Vol] 106 mmol/L 98-108 [facility] Echo, Limited Studyon 2024 Echo, Limited Study [facility] Cardiovascular Services [address] [place] [address] Echo, Limited Study 10/12/24 0815 MR#: [id number] Acct: [id number] Name: SILKE LOPEZ Rep #: [id number] : 1965 58 From: Don Owen MD Attending Dr: Dr. Merlin Rivers MD Status: ADM PARKER Ordering Dr: Maverick Mitchell DO Date: 10/11/24 Location: [facility] Sex: F C Admitted: 10/11/24 Reason For [...] Date Dictated: 10/12/2415 Date Transcribed: 10/12/24 1207 Vaccine Customer Representative: Signed Normal [facility] Emergency Department Summary on 10-11-2024 Emergency Department Summary [facility] Medical Records Department [address] [place] [address] Emergency Department Summary 10/11/24 MR#: [id number] Acct: [id number] Name: SILKE LOPEZ Rep #: [id number] : 1965 58 From: Ashwin Bauman MD PCP: Leigha Wynn, [employer]-C Status:REG ER Location: ED HPI History of [...] Recent Illness/Hospitalizati on: No PFSH [facility] Medical History Wears glasses Arthritis Scoliosis Non-smoker [...] spouse current occupational status: employed current occupation: [employer] Smoking Status: Never smoker alcohol intake: never [...] soft nontender. Moving all 4 extremities. 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 Normal dorsi plantarflexion. Back nontender. Neurologically [...] 10/11/24 17 (more content not included)... Normal [facility] Eosinophil percentageOrdered By: Ashwin Bauman on 10-11-2024 Eosinophils/100 WBC (Bld) 2.4 % 0-[address] [facility] Erythrocyte distribution wid th ratioOrdered By: Ashwin Bauman on 10-11-2024 Erythrocyte distribution width (RBC) [Ratio] 13.3 % 11.6-14.[address] [facility] Erythrocyte distribution wid th standard deviationOrdered By: Ashwin Bauman on 10-11-2024 Erythrocyte distribution width (RBC) [Ratio] 46.7 fl High 35.1-43.[address] [facility] Folate [Mass/volume] in Seru m or PlasmaOrdered By: Maverick Abdalla on 10-11-2024 Folate [Mass/Vol] 10.50 ng/mL 4.60-34.80 [facility] Comment on above: Hemolysis, Results w ill be affected, Requires Recollection. Glomerular filtration rate ( GFR) estimation/1.73 sq m using serum, plasma, or whole bOrdered By: Ashwin Bauman on 10-11-2024 GFR/1.73 sq M.predicted among non-blacks MDRD (S/P/Bld) [Vol rate/Area] 72 mL/min/{1.73_m2} >[address] [facility] Comment on above: mL/min/1.73m2 CKD-EP I Creatinine Equation (2020) [facility] de[facility]dered By: Ashwin Bauman on 10-11-2024 Glucose [Mass/Vol] 139 mg/dL High 74-106 [facility] Comment on above: MANAGEMENT OF PATIEN T CARE PER NURSING PROTOCOL H AND P Exam - Hospitaliston 10-11-2024 H&P Exam - Hospitalist [facility] Medical Records Department [address] [place] [address] H P Exam - Hospitalist 10/11/242013 MR#: [id number] Acct: [id number] Name: SILKE LOPEZ Rep #: [id number] : 1965 58 From: Maverick Mitchell DO PCP: Leigha Wynn, [employer]-C Status:ADM PARKER Location: [place] [address] HPI - General General Date of Admission: [...] and OA; on glucosamine who presents to [facility] ER complaining of slurred speech and [...] be less than 2 midnights. [facility] Medical History Wears glasses Arthritis Scoliosis Non-smoker [...] evidence of (more content not included)... Normal [facility] Hematocrit Auto (Bld) [Volum e fraction]Ordered By: Ashwin Bauman on 10-11-2024 Hematocrit (Bld) [Volume fraction] 40.3 % 37-[address] [facility] Hemoglobin A1con 10-11-2024 HbA1c (Bld) [Mass fraction] 5.5 % Normal <=5.[address] [facility] Comment on above: Result Comment: Norm al < 5.7 % Prediabetic 5.7 - 6.4 % Diabetic >or= 6.5 % Please note range changes. Performed By: #### L 501.9520 #### [facility] [address] [place] [address]. [place], [address] Hemoglobin A1c percentageOrd ered By: Maverick Abdalla on 10-11-2024 HbA1c (Bld) [Mass fraction] 5.5 % <5.[address] [facility] Comment on above: Normal < 5.7 % Predi abetic 5.7 - 6.4 % Diabetic >or= 6.5 % Please note range changes. Hemoglobin measurementOrdere d By: Ashwin Bauman on 10-11-2024 Hemoglobin (Bld) [Mass/Vol] 13.3 g/dL 12.0-15.[address] [facility] Immature granulocytes/100 WB C Auto (Bld)Ordered By: Ashwin Bauman on 10-11-2024 Immature granulocytes/100 WBC (Bld) 0.300 % 0.0-0.[address] [facility] Comment on above: IG% - Immature Granu locytes (promyelocytes, myelocytes and metamyelocytes) > 1% indicates that a LEFT SHIFT is Present. International normalized rat io (INR) calculationOrdered By: Ashwin Bauman on 10-11-2024 INR Coag (Bld) [Relative time] 1.0 {INR} [facility] L501.4021on 10-11-2024 Trop T High Sen 10 ng/L Normal <=[address] [facility] Comment on above: Performed By: #### L 300.4310, L300.3900, L501.4021, L100.0100, L500.2500 ####[facility] [address] [place], [address] MCV (mean corpuscular volume ) determinationOrdered By: Ashwin Bauman on 10-11-2024 MCV (RBC) [Entitic vol] 95.7 fL 81-[address] [facility] Mean corpuscular hemoglobin (MCH) determinationOrdered By: Ashwin Bauman on 10-11-2024 MCH (RBC) [Entitic mass] 31.6 pg 27.0-32.[address] [facility] Mean corpuscular hemoglobin concentration (MCHC) determinationOrdered By: Ashwin Bauman on 10-11-2024 MCHC (RBC) [Mass/Vol] 33.0 g/dL 32-36 [facility] Mean platelet volume determi nationOrdered By: Ashwin Bauman on 10-11-2024 Platelet mean volume (Bld) [Entitic vol] 10.9 fL 6.2-12.[address] [facility] Monocyte percentageOrdered B y: Ashwin Bauman on 10-11-2024 Monocytes/100 WBC (Bld) 7.1 % 0-[address] [facility] Neutrophil percentageOrdered By: Ashwin Bauman on 10-11-2024 Neutrophils/100 WBC (Bld) 62.1 % 47-[address] [facility] Nucleated red blood cell per centageOrdered By: Ashwin Bauman on 10-11-2024 Nucleated RBC/100 WBC (Bld) [Ratio] 0 % 0-[address] [facility] Partial Thromboplast Timeon 10-11-2024 aPTT Coag (Bld) [Time] 34.4 s Normal 24.1-36.2 [facility] Comment on above: Performed By: #### L 300.4310, L300.3900, L501.4021, L100.0100, L500.2500 ####[facility] [address], [address] Platelet countOrdered By: Reyes Bauman on 10-11-2024 Platelets (Bld) [#/Vol] 288 10*3/uL 150-[address] [facility] Potassium measurement (mass/ volume)Ordered By: Ashwin Bauman on 10-11-2024 Potassium (Unsp spec) [Mass/Vol] 4.0 mmol/L 3.3-5.[address] [facility] Prothrombin Time w/INRon INR Coag (PPP) [Relative time] 1.0 {INR} Normal [facility] Comment on above: Performed By: #### L 300.4310, L300.3900, L501.4021, L100.0100, L500.2500 ####[facility] [address], [address] PT Coag (PPP) [Time] 13.8 s Normal 11.7-14.9 [facility] Comment on above: Performed By: #### L 300.4310, L300.3900, L501.4021, L100.0100, L500.2500 ####[facility] [address], [address] Prothrombin timeOrdered By: Ashwin Bauman on 10-11-2024 PT Coag (PPP) [Time] 13.8 s 11.7-14.9 [facility] RBC Auto (Bld) [#/Vol]Ordere d By: Ashwin Bauman on 10-11-2024 RBC (Bld) [#/Vol] 4.21 10*6/uL 4.2-5.4 [facility] STROKE Brain/Head without Co nton 10-11-2024 STROKE Brain/Head without Cont [facility] Imaging Services [address] [place] [address] STROKE Brain/Head without Cont MR#: [id number] Acct: [id number] Name: MARIA EUGENIASILKE BENAVIDEZ Rep #: [id number] : 1965 F 58 From: Luigi Benito MD PCP: EDGAR Long Status: REG ER Study: STROKE Brain/Head without Cont Date of Exam: 0 10/11/24 Exam# [id number] Ordering Dr: Ashwin Bauman MD PROCEDURE: STROKE [...] mass effect or midline shift. Reading Location: [facility] CC: EDGAR Wynn; Dr. Ashwin Bauman MD Vaccine Customer Representative: Signed Normal [facility] STROKE CTA Head AND Neck W/C onon 10-11-2024 STROKE CTA Head AND Neck W/Con [facility] Imaging Services [address] [place] [id number] STROKE CTA Head AND Neck W/Con MR#: [id number] Acct: [id number] Name: SILKE LOPEZ Rep #: [id number] : 1965 F 58 From: Jose G Bonner MD PCP: EDGAR Long Status: REG ER Study: STROKE CTA Head AND Neck W/Con Date of Exam: 0 10/11/24 Exam# [id number] Ordering Dr: Ashwin Bauman MD PROCEDURE: STROKE [...] of the head and neck. Reading Location: [facility] CC: EDGAR Wynn; Dr. Ashwin Bauman MD Vaccine Customer Representative: Signed Normal [facility] Serum creatinine measurement (mass/volume)Ordered By: Ashwin Bauman on 10-11-2024 Creatinine [Mass/Vol] 0.92 mg/dL 0.70-1.20 [facility] Serum glucose measurement (m ass/volume)Ordered By: Ashwin Bauman on 10-11-2024 Glucose [Mass/Vol] 109 mg/dL High 70-99 [facility] Serum or plasma calcium leta urement (mass/volume)Ordered By: Ashwin Bauman on 10-11-2024 Calcium [Mass/Vol] 9.2 mg/dL 7.6-11.0 [facility] Serum or plasma ethanol leta urement (mass/volume)Ordered By: Maverick Abdalla on 10-11-2024 Ethanol [Mass/Vol] mg/dL <10.1 [facility] Comment on above: This test is for med ical purposes only. The legal definition of intoxication varies according to local law. Serum or plasma urea nitroge n measurement (mass/volume)Ordered By: Ashwin Bauman on 10-11-2024 Urea nitrogen [Mass/Vol] 28 mg/dL High 4-[address] [facility] Sodium levelOrdered By: Ashwin Bauman on 10-11-2024 Sodium [Moles/Vol] 141 mmol/L 133-145 [facility] TSH DL <= 0.005 mIU/L QnOrde red By: Maverick Abdalla on 10-11-2024 TSH Qn 1.410 uIU/mL 0.300-4.[address] [facility] Thyroid Stim Hormone (TSH)on 10-11-2024 TSH 1.410 uIU/mL Normal 0.300-4.[address] [facility] Comment on above: Performed By: #### L 501.9520 #### [facility] Laboratory [address] [place], [address] Troponin T HS 2 HRon 025 Trop T High Sen 7 ng/L Normal <=[address] [facility] Comment on above: Performed By: #### L 501.5200 #### [facility] Laboratory [address] [place], [address] Troponin T HS 4 HRon 025 Trop T High Sen 7 ng/L Normal <=[address] [facility] Comment on above: Performed By: #### L 501.9520 #### [facility] Laboratory [address] [place], [address] Troponin T.cardiac [Mass/vol ume] in Serum or Plasma by High sensitivity methodOrdered By: Ashwin Bauman on 10-11-2024 Troponin T.cardiac High sensitivity method [Mass/Vol] 7 ng/L <[address] [facility] Troponin T.cardiac High sensitivity method [Mass/Vol] 10 ng/L <[address] 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 Normal [facility] Surgery Specimen Level Nilda 09-20-2024 Surgery Specimen Level IV -------- Patient Age/Sex Location Account Attending Physician -------- SILKE LOPEZ 58/F [facility] [id number] [facility] -------- Specimen: [id number] Received: 09/20/24 Status: SOHAM Ann Num: [id number] Spec Type: ENDOM BX/C Subm Dr: Dr. [...] of the specimen may not survive processing. MS 09/23/2024 CPT:45518 -------- Patient Age/Sex Location Account Attending Physician -------- [facility] 58[facility] [id number] [facility] -------- Signed (signature on file) Dr. Debbie Taylor MD 09/26/24 1730 -------- Normal [facility] Comment on above: Performed By: #### P SUIV ####[facility] [address] [place], [address] Vitamin D,25 Hydroxyon 09-03 Vitamin D 25-OH 30.0 ng/mL Normal 30-[address] [facility] Comment on above: Result Comment: Magdalena min D Status Deficiency: <20 ng/mL (50nmol/L) Insufficiency: 20-30 ng/mL (50-75 nmol/L) Sufficiency: 30-100 ng/mL (75-250 nmol/L) Toxicity: >100 ng/mL (>250 nmol/L) Performed By: #### L 501.5202 #### [facility] Laboratory [address] [place], [place], [address] Echo Completeon 07-15-2024 Echo [facility] Cardiovascular Services [address] [place] [address] Echo Complete 07/15/24 1316 MR#: [id number] Acct: [id number] Name: SILKE LOPEZ Rep #: [id number] : 1965 58 From: Maikol Sanchez MD Attending Dr: EDGAR Long Status: REG C LI Ordering Dr: Leigha Wynn NP [employer]-C Date: 07/15/24 Location: [facility] Sex: F C [...] 07/15/24 162 Date Maikol Sanchez MD CC: MEMBER OF THE LEGISLATIVE ASSEMBLYStar Wynn Date Dictated: 07/15/241315 Date Transcribed: 07/15/241628 Vaccine Customer Representative: Signed Normal [facility] Echocardiogram study reportO rdered By: Maikol Sanchez on 07-15-2024 Study report [facility] Cardiovascular Services [address] [place] [address] Echo Complete 07/15/241315 MR#: [id number] Acct: [id number] Name: SILKE LOPEZ Rep #:[id number] : 1965 58 From: Maikol Turner Attending Dr: EDGAR Long tatus: REG CLI Ordering Dr: Leigha Wynn NP Onur e: 07/15/24 Location: [facility] Sex: F C Admitted: Reason For [...] valves. Ordering Physician: Leigha Wynn Referring Physician: Leihga Wynn Performed By: Kayce Barcenas RDCS 07/15/24 1629 Date _ Maikol Sanchez MD CC: [employer]-C Leigha Wynn ~ Date Dictated: 07/15/24 1316 Date Transcribed: 07/15/24 162 Vaccine Customer Representative: Signed [facility] Work Phone: [phone] 06-11-2024 Calcium [Mass/Vol] 9.1 mg/dL Normal 7.6-11.0 [facility] Comment on above: Performed By: #### L 501.5200 #### [facility] Laboratory [address] [place], [address] PTH intactOrdered By: Coleen Adams on 06-11-2024 Parathyroid Hormone (Intact) 56 pg/mL 11-[address] [facility] PTHINon 06-11-2024 PTH 56 pg/mL Normal [facility] Comment on above: Performed By: #### L 501.5200 #### [facility] Laboratory [address] [place], [address] Serum or plasma calcium leta urement (mass/volume)Ordered By: Errol Adams on 06-11-2024 Calcium [Mass/Vol] 9.1 mg/dL 7.6-11.0 [facility] Surgery Visit Reporton 06-11 Surgery Visit Report [facility] [address] [place] [address] OFFICE VISIT Date of Service: 06/11/24 MR#: [id number] Acct: [id number] Name: SILKE LOPEZ Rep #: [id number] : 1965 Provider: Dr. Errol santiago MD Age/Sex: 58/F Location: [facility] Status: Signed Intake Vital Signs 06/04/24 06:38 [...] Diagnoses S/P parathyroidectomy Z98.890; Z90.89 [facility] Medical History Wears glasses Arthritis Scoliosis Non-smoker [...] (more content not included)... Normal [facility] Vitamin D, 25-hydroxyOrdered By: Errol Adams on 06-11-2024 Vitamin D 25-Hydroxy 21.3 ng/mL Low 30-100 [facility] Comment on above: Vitamin D StatusDefi ciency: <20 ng/mL (50nmol/L)Insufficiency: 20-30 ng/mL (50-75 nmol/L)Sufficiency: 30-100 ng/mL (75-250 nmol/L)Toxicity: >100 ng/mL (>250 nmol/L) Vitamin D,25 Hydroxyon 06-11 Vitamin D 25-OH 21.3 ng/mL Low 30-[address] [facility] Comment on above: Result Comment: Magdalena min D Status Deficiency: <20 ng/mL (50nmol/L) Insufficiency: 20-30 ng/mL (50-75 nmol/L) Sufficiency: 30-100 ng/mL (75-250 nmol/L) Toxicity: >100 ng/mL (>250 nmol/L) Performed By: #### L 501.5200 #### [facility] Laboratory [address], [address] Discharge Instructionon 0 Discharge Instruction [facility] Medical Records Department [address] [place] [address] Instructions for Home/Discharge Instructions 06/04/24 1014 MR#: [id number] Acct: [id number] Name: SILKE LOPEZ Rep #: [id number] : 1965 58 From: Errol Adams MD PCP: EDGAR Long Status:DEP [facility] Discharge Instructions Diet Discharge Diet: No restrictions [...] notify Dr. Adams's office immediately. Print Language: Barbadian Discharge Orders/Prescriptions Prescriptions: Continued cholecalciferol (vitamin D3) [Vitamin D3] 50 mcg (2,000 unit) capsule 50 mcg PO DAILY triamcinolone acetonide 0.5 % ointment 1 applic TOPICAL .COMPLEX Qty: 45 1RF Rx Instructions: 1 application topically to bilateral legs 1-2 x per day; Referrals / Follow Up: Leigha Wynn NP, [employer]-C [Primary Care Provider] - Disposition Disposition (needs filled in before D/C Order can be placed): Home, Self Care 06/04/24 6292 Errol Adams MD CC: [employer]-C Leigha Wynn Signed Normal [facility] Frozen Section (charge)on Frozen Section (charge) -------- Patient Age/Sex Location Account Attending Physician -------- SILKE LOPEZ 58/F [facility] [id number] Dr. Errol Adams MD -------- Specimen: [id number] Received: 06/04/24 Status: SOHAM Ann Num: [id number] Spec Type: PARATHY Subm Dr: Dr. Errol [...] follows:A1. Frozen section remnantA2. Remainder of specimen [facility] 06-04-2024 CPT:12439,28503 -------- Patient Age/Sex Location Account Attending Physician -------- SILKE LOPEZ 58/F [facility] [id number] Dr. Errol Adams MD -------- Signed (signature on file) Dr. Debbie Taylor MD 06/20/24 1654 -------- Normal [facility] Comment on above: Performed By: #### P FSC ####[facility] [address] [facility] [place], [address] MR/POSTOP.ANE 06-04-2024 MR/POSTOP.[facility] Medical Records Department [address] [place] [address] Anesthesia Postop Eval I 06/04/24 1134 MR#: [id number] Acct: [id number] Name: SILKE LOPEZ Rep #: [id number] : 1965 58 From: Victorino Elias CRNA PCP: EDGAR Long Status:REG SDC Y Race: C Location: [place] [address] Anesthesia: Postop Eval I Current Vital Signs [...] CRNA Cosigner Signature: Date CC: Signed Normal [facility] MR/FVDNTWLB6jp 06-04-2024 MR/POSTOPAN2 [facility] Medical Records Department [address] [facility] [place] [address] Anesthesia Postop Eval II 06/04/241915 MR#: [id number] Acct: [id number] Name: SILKE LOPEZ Rep #: [id number] : 1965 58 From: Amado Alvarez MD PCP: EDGAR Long Status:[facility] Y Race: C Location: [facility] Anesthesia Postop Eval I Sum Postop Eval Completion status Anesthesia document: Postop Eval 1 completed: Yes Anesthesia Postop Eval I Summary Anesthesia Postop Eval I Summary: Anesthesia Postop Eval I: Assessment Summary Airway patent Yes 06/04/24 11:35 HIDE AND SKIN CLASSER.JBLOU Spontaneous unlabored Yes 06/04/24 11:35 HIDE AND SKIN CLASSER.JBLOU respirations Mental status Awake,Calm 06/04/24 11:35 HIDE AND SKIN CLASSER.JBLOU nausea No 06/04/24 11:35 HIDE AND SKIN CLASSER.JBLOU Vomiting No 06/04/24 11:35 HIDE AND SKIN CLASSER.JBLOU Anesthesia Postop Eval I: Fluid Summary Crystalloid volume administer 1,500 06/04/24 11:35 HIDE AND SKIN CLASSER.JBLOU (ml) Colloids volume administered ( ml) Blood Product volume administered (ml) Total IV fluid infused 1,500 06/04/24 11:35 HIDE AND SKIN CLASSER.JBLOU Anesthesia Postop Eval I: Summary Notes Anesthesia Complication No 06/04/24 11:35 HIDE AND SKIN CLASSER.JBLOU Anesthesia Complication Comment: Post-operative progress note Anesthesia: Postop Eval II Evaluation Mental status: Awake and Calm Pain Level: 1 nausea: No Vomiting: No Complications Anesthesia Complication: No 06/04/241915 Date Amado Alvarez MD Cosigner Signature: Date CC: Signed Normal [facility] Operative Reporton 5 Operative Report [facility] Medical Records Department [address] [place] [address] Operative Report 06/04/24 1012 MR#: [id number] Acct: [id number] Name: SILEK LOPEZ Rep #: [id number] : 1965 58 From: Errol Adams MD PCP: EDGAR Long Status:[facility] Location: [facility] Operative Report (Standard) Operative Information Date of Procedure: 06/04/24 Pre-Operative Diagnosis: 1. Primary Hyperparathyroidism 2. Vitamin D deficiency Post-Operative Diagnosis: 1. Primary Hyperparathyroidism secondary to left inferior parathyroid adenoma 2. Vitamin D deficiency Surgery/Procedure Performed: Minimally invasive parathyroidectomy with intraoperative PTH and nerve monitoring employee welfare manager: Yes Nuclear Licensing Engineer: Dai Carrero Tasks completed by optometrist assistant: Opening closing Type of Anesthesia: General/Supplemental [...] (more content not included)... Normal [facility] PTH intactOrdered By: Coleen Adams on 06-04-2024 Parathyroid Hormone (Intact) 22 pg/mL -[address] [place] [address] PTHINon 06-04-2024 PTH 22 pg/mL Normal [address] Comment on above: Performed By: #### L 501.5200 #### [facility] Laboratory [address] [place], [address] PTH 51 pg/mL Normal [address] [place] [address] Comment on above: Order Comment: [id number] No N N S [id number] TOTAL HYSTERERCTOMY BSO PREOP Performed By: #### B TSPAT, L500.4050, L501.9520, L100.0100, L506.1001 #### [facility] Laboratory [address] [place], [address] PTH 68 pg/mL High [address] [place] [address] Comment on above: Order Comment: Comme nts: PTH 10 MIN Performed By: #### L 509.1000 ####[facility] [address] [place], [address] PTH 89 pg/mL High [address] [place] [address] Comment on above: Order Comment: Comme nts: PTH INTRAOPERATIVE 5 MIN Performed By: #### L 501.9520 #### [facility] Laboratory [address] [place], [address] PTH 790 pg/mL High [address] [place] [address] Comment on above: Order Comment: Comme nts: PTH INTRAOPERATIVE BASELINE @ 0838 Performed By: #### L 501.5200 #### [facility] [address] [place], [address] PTH 144 pg/mL High [address] [place] [address] Comment on above: Performed By: #### B TSPAT, L500.4050, L501.9520, L100.0100, L506.1001 #### [facility] Laboratory [address] [facility] [place], [address] 12 Lead EKGon 05-23-2024 12 Lead EKG [facility] Cardiovascular Services [address] [place] [address] 12 Lead EKG 05/23/24 1032 MR#: [id number] Acct: [id number] Name: SILKE LOPEZ Rep #: [id number] : 1965 58 From: Maikol Sanchez MD Attending Dr: Dr. Errol Adams MD Status: PRE SDC Ordering Dr: Amado Alvarez MD Date: 05/23/24 Location: [facility] Sex: F C Admitted: Test Reason : [...] ECG Confirmed by MAIKOL SANCHEZ MD ([id number]), social media editor RAY HAUSER ([id number]) on 05/23/2024 12:52:44 PM Referred By: Errol Adams Confirmed By: MAIKOL SANCHEZ MD 05/23/24 1252 Date Maikol Sanchez MD CC: ISRRAEL-Dilma Wynn; Dr. Amado Alvarez MD; Dr. Errol Adams MD Signed Normal [facility] Electrocardiogram reportOrde red By: Maikol Sanchez on 05-23-2024 EKG study [facility] Cardiovascular Services [address] [place] [address] 12 Lead EKG 05/23/24 1032 MR#: [id number] Acct: [id number] Name: SILKE LOPEZ Rep #:[id number] : 1965 58 From: Maikol Sanchez MD Attending Dr: Dr. Errol Adams MD Status: PRE SDC Ordering Dr: Amado Alvarez MD Date: 05/23/24 Location: [facility] Sex: F C Admitted: Test Reason : [...] Abnormal ECG Confirmed by MAIKOL SANCHEZ MD ([id number]), social media editor RAY HAUSER ([id number]) on 2:52:44 PM Referred By: Errol Adams Confirmed By: MAIKOL SANCHEZ MD 05/23/24 1252 Date _ Maikol Sanchez MD CC: [employer]-C Leigha Wynn; Dr. Amado Alvarez MD; Dr. Errol Adams MD ~ Signed 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 Hx Hospitalization No 05/21/24 11:11 Any Problems [...] take am of surgery PONV PONV - 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 Female Yes 05/21/24 11:11 HX of Motion [...] 05/01/24 08:20 Respiratory Assessment Respiratory Assessment - beach attendant: Respiratory Tract Infection Hx - beach attendant Hx Respiratory Tract Infection No 05/21/24 11:11 STOP Sleep Apnea STOP Sleep Apnea - beach attendant: STOP Sleep Apnea - beach attendant Hx Hypertension No 05/21/24 11:11 Hx Sleep [...] Tobacco Use History 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 Tobacco Use Smoking Status Never smoker 05/21/24 11:11 Hx Tobacco Use No 05/21/24 11:11 Years Smoking Packs Smoked per Day Smoking Cessation Date was within the last 15 years Hx Smoking Cessation Date Hx Smoking Cessation Counseling Hematologic Medial History Hematologic Hx - beach attendant: 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 [facility] [facility] Anion gap in Serum or Plasma Ordered By: Leigha Wynn on 05-17-2024 Anion gap [Moles/Vol] 9 mmol/L 5-15 [facility] BUN/creatinine ratioOrdered By: Leigha Wynn on 05-17-2024 Urea nitrogen/Creatinine [Mass ratio] 26.9 mg/mg High 10-[address] [facility] Bilirubin, totalOrdered By: Leigha Wynn on 05-17-2024 Bilirubin [Mass/Vol] 0.44 mg/dL 0.00-1.30 [facility] CBC-Complete Blood Cnt No Di ffon 05-17-2024 Erythrocyte distribution width (RBC) [Ratio] 12.9 % Normal 11.6-14.[address] [facility] Comment on above: Performed By: #### L 501.5200 #### [facility] [address] [place], [address] Hematocrit (Bld) [Volume fraction] 44.7 % Normal 37-[address] [facility] Comment on above: Performed By: #### L 501.5200 #### [facility] [address] [place], [address] Hemoglobin (Bld) [Mass/Vol] 15.0 g/dL Normal 12.0-15.[address] [facility] Comment on above: Performed By: #### L 501.5200 #### [facility] [address] [place], [address] MCH (RBC) [Entitic mass] 31.4 pg Normal 27.0-32.[address] [facility] Comment on above: Performed By: #### L [id number] #### [facility] [address] [place], [address] MCHC (RBC) [Mass/Vol] 33.6 g/dL Normal 32-36 [facility] Comment on above: Performed By: #### L 501.5200 #### [facility] [address] [place], [address] MCV (RBC) [Entitic vol] 93.5 fL Normal 81-[address] [facility] Comment on above: Performed By: #### L 501.5200 #### [facility] [address] [place], [address] Platelet mean volume (Bld) [Entitic vol] 10.8 fL Normal 6.2-12.[address] [facility] Comment on above: Performed By: #### L [id number] #### [facility] [address] [place], [address] Platelets (Bld) [#/Vol] 276 10*3/uL Normal 150-[address] [facility] Comment on above: Performed By: #### L [id number] #### [facility] [address] [place], [address] RBC (Bld) [#/Vol] 4.78 10*6/uL Normal 4.2-5.4 [facility] Comment on above: Performed By: #### L [id number] #### [facility] [address] [place], [address] RDW SD 45.0 fl High 35.1-43.[address] [facility] Comment on above: Performed By: #### L 501.5200 #### [facility] [address] [place], [address] WBC (Bld) [#/Vol] 6.3 10*3/uL Normal 4.4-11.0 [facility] Comment on above: Performed By: #### L 501.5200 #### [facility] [address] [place], [address] Calculated very low density lipoprotein (VLDL) cholesterol measurementOrdered By: Leigha Wynn on 05-17-2024 Calculated very low density lipoprotein (VLDL) cholesterol measurement 19 mg/dL 5-[address] [facility] VLDL Cholesterol 19 mg/dL 5-[address] [facility] Carbon dioxide, total [Moles /volume] in Central venous bloodOrdered By: Leigha Wynn on 05-17-2024 CO2 [Moles/Vol] 25.0 mmol/L 21.0-32.[address] [facility] Chloride assayOrdered By: Jairo Wynn on 05-17-2024 Chloride [Moles/Vol] 105 mmol/L 98-108 [facility] [place] Comprehensive Metabolic Prof ilon 05-17-2024 Albumin [Mass/Vol] 4.1 g/dL Normal 3.5-5.0 [facility] Comment on above: Performed By: #### B TSPAT, L500.4050, L501.9520, L100.0100, L506.1001 #### [facility] [address] [place], [address] Albumin/Globulin [Mass ratio] 1.5 {ratio} Normal 0.9-2.[address] [facility] Comment on above: Performed By: #### B TSPAT, L500.4050, L501.9520, L100.0100, L506.1001 #### [facility] [address] [place], [address] ALK PHOS 64 U/L Normal 35-[address] [facility] Comment on above: Performed By: #### B TSPAT, L500.4050, L501.9520, L100.0100, L506.1001 #### [facility] [address] [place], [address] ALT [Catalytic activity/Vol] 33 U/L Normal <=[address] [facility] Comment on above: Performed By: #### B TSPAT, L500.4050, L501.9520, L100.0100, L506.1001 #### [facility] [address] [place], [address] AST [Catalytic activity/Vol] 27 U/L Normal <=[address] [facility] Comment on above: Performed By: #### B TSPAT, L500.4050, L501.9520, L100.0100, L506.1001 #### [facility] [address] [place], [address] Bilirubin [Mass/Vol] 0.44 mg/dL Normal 0.00-1.30 [facility] Comment on above: Performed By: #### B TSPAT, L500.4050, L501.9520, L100.0100, L506.1001 #### [facility] [address] [place], [address] BUN/CRE 26.9 RATIO High 10-[address] [facility] Comment on above: Performed By: #### B TSPAT, L500.4050, L501.9520, L100.0100, L506.1001 #### [facility] [address] [place], [address] Calcium [Mass/Vol] 11.4 mg/dL High 7.6-11.0 [facility] Comment on above: Performed By: #### B TSPAT, L500.4050, L501.9520, L100.0100, L506.1001 #### [facility] [address] [place], [address] Chloride [Moles/Vol] 105 mmol/L Normal 98-108 [facility] Comment on above: Performed By: #### B TSPAT, L500.4050, L501.9520, L100.0100, L506.1001 #### [facility] [address] [place], [address] CO2 [Moles/Vol] 25.0 mmol/L Normal 21.0-32.[address] [facility] Comment on above: Performed By: #### B TSPAT, L500.4050, L501.9520, L100.0100, L506.1001 #### [facility] [address] [place], [address] Creatinine [Mass/Vol] 0.89 mg/dL Normal 0.70-1.20 [facility] Comment on above: Performed By: #### B TSPAT, L500.4050, L501.9520, L100.0100, L506.1001 #### [facility] [address] [place], [address] GAP 9 Normal 5-[address] [facility] Comment on above: Performed By: #### B TSPAT, L500.4050, L501.9520, L100.0100, L506.1001 #### [facility] [address] [place], [address] GFR/1.73 sq M.predicted among non-blacks MDRD (S/P/Bld) [Vol rate/Area] 75 mL/min/{1.73_m2} Normal >[address] [facility] Comment on above: Result Comment: mL/m in/1.73m2 CKD-EPI Creatinine Equation (2020) Performed By: #### B TSPAT, L500.4050, L501.9520, L100.0100, L506.1001 #### [facility] [address] [place], [address] Globulin (S) [Mass/Vol] 2.8 g/dL Normal 2.2-4.[address] [facility] Comment on above: Performed By: #### B TSPAT, L500.4050, L501.9520, L100.0100, L506.1001 #### [facility] [address] [place], [address] Glucose [Mass/Vol] 91 mg/dL Normal 70-99 [facility] Comment on above: Performed By: #### B TSPAT, L500.4050, L501.9520, L100.0100, L506.1001 #### [facility] [address] [place], [address] Potassium [Moles/Vol] 4.6 mmol/L Normal 3.3-5.1 [facility] Comment on above: Performed By: #### B TSPAT, L500.4050, L501.9520, L100.0100, L506.1001 #### [facility] [address] [place], [address] Sodium [Moles/Vol] 138 mmol/L Normal 133-145 [facility] Comment on above: Performed By: #### B TSPAT, L500.4050, L501.9520, L100.0100, L506.1001 #### [facility] [address] [place], [address] T PROT 6.9 g/dL Normal 5.9-8.[address] [facility] Comment on above: Performed By: #### B TSPAT, L500.4050, L501.9520, L100.0100, L506.1001 #### [facility] [address] [place], [address] Urea nitrogen [Mass/Vol] 24 mg/dL High 4-[address] [facility] Comment on above: Performed By: #### B TSPAT, L500.4050, L501.9520, L100.0100, L506.1001 #### [facility] [address] [place], [address] Erythrocyte distribution wid th ratioOrdered By: Leigha Wynn on 05-17-2024 Erythrocyte distribution width (RBC) [Ratio] 12.9 % 11.6-14.[address] [facility] Erythrocyte distribution wid th standard deviationOrdered By: Leigha Wynn on 05-17-2024 Erythrocyte distribution width (RBC) [Entitic vol] 45.0 fL High 35.1-43.[address] [facility] Erythrocyte distribution width (RBC) [Ratio] 45.0 fl High 35.1-43.[address] [facility] GFR/1.73 sq M.predicted khai g non-blacks MDRD (S/P/Bld) [Vol rate/Area]Ordered By: Leigha Wynn on 05-17-2024 Estimated GFR (MDRD) Non-Af Amer 75 >[address] [facility] Comment on above: mL/min/1.73m2 CKD-EP I Creatinine Equation (2020) Glomerular filtration rate ( GFR) estimation/1.73 sq m using serum, plasma, or whole bOrdered By: Leigha Wynn on 05-17-2024 GFR/1.73 sq M.predicted among non-blacks MDRD (S/P/Bld) [Vol rate/Area] 75 mL/min/{1.73_m2} >[address] [facility] Comment on above: mL/min/1.73m2 CKD-EP I Creatinine Equation (2020) Hematocrit Auto (Bld) [Volum e fraction]Ordered By: Leigha Wynn on 05-17-2024 Hematocrit (Bld) [Volume fraction] 44.7 % 37-[address] [facility] Hemoglobin A1con 05-17-2024 HbA1c (Bld) [Mass fraction] 5.6 % Low <=5.[address] [facility] Comment on above: Performed By: #### B TSPAT, L500.4050, L501.9520, L100.0100, L506.1001 #### [facility] [address] [place], [address] Hemoglobin A1c percentageOrd ered By: Leigha Wynn on 05-17-2024 HbA1c (Bld) [Mass fraction] 5.6 % Low >5.[address] [facility] Hemoglobin measurementOrdere d By: Leigha Wynn on 05-17-2024 Hemoglobin (Bld) [Mass/Vol] 15.0 g/dL 12.0-15.[address] [facility] Hepatitis C antibodyOrdered By: Leigha Wynn on 05-17-2024 Hepatitis C Antibody Non-Reactive Nonreactive [facility] Comment on above: Reactive: Presumptiv e evidence of antibodies to HCV. Follow CDC recommendations for supplemental testing.Non-Reactive: Antibodies to HCV were not detected; does not exclude the possibility of exposure to HCVReactive Results are presumptive evidence of antibodies to HCV. Follow CDC recommendations for supplemental testing.Order confirmation testing: HCV Quant by PCR testing - HCVPCR #[id number] Non Reactive: < 0.8 Equivocal: >/= 0.8 to < 1.0 Reactive: >/= 1.0The CDC requires that a reactive/equivocal HCV antibody result be sent out for confirmation. HCV Quant by PCR testing. [id number] 05-17-2024 Hepatitis C Ab Non-Reactive Normal Nonreactive [facility] Comment on above: Result Comment: Reac tive: Presumptive evidence of antibodies to HCV. Follow CDC recommendations for supplemental testing. Non-Reactive: Antibodies to HCV were not detected; does not exclude the possibility of exposure to HCV Reactive Results are presumptive evidence of antibodies to HCV. Follow CDC recommendations for supplemental testing. Order confirmation testing: HCV Quant by PCR testing - HCVPCR #[id number] Non Reactive: < 0.8 Equivocal: >/= 0.8 to < 1.0 Reactive: >/= 1.0 The [facility] requires that a reactive/equivocal HCV antibody result be sent out for confirmation. HCV Quant by PCR testing. Performed By: #### B TSPAT, L500.4050, L501.9520, L100.0100, L506.1001 #### [facility] [address], [address] L506.1001on 05-17-2024 Vitamin D 25-OH 22.3 ng/mL Low 30-[address] [facility] Comment on above: Result Comment: Magdalena min D Status Deficiency: <20 ng/mL (50nmol/L) Insufficiency: 20-30 ng/mL (50-75 nmol/L) Sufficiency: 30-100 ng/mL (75-250 nmol/L) Toxicity: >100 ng/mL (>250 nmol/L) Performed By: #### B TSPAT, L500.4050, L501.9520, L100.0100, L506.1001 #### [facility] [address] [place], [address] LDL calc ser/plasOrdered By: Leigha Wynn on 05-17-2024 Cholesterol in LDL [Mass/Vol] 128 mg/dL [facility] Comment on above: Fzgmkmlixz=355-916 m g/dL & Higher Ehlk=707 mg/dL or greater LDL Cholesterol, Calculated 128 mg/dL [facility] Comment on above: Hxtmhwqdfs=977-749 m g/dL & Higher Aacy=703 mg/dL or greater Laboratory - Chemistry and C hemistry - challengeOrdered By: Leigha Wynn on 05-17-2024 AST [Catalytic activity/Vol] 27 U/L <[address] [facility] Lipid Profileon 05-17-2024 CHOL:HDL 6.[address] [facility] Comment on above: Performed By: #### B TSPAT, L500.4050, L501.9520, L100.0100, L506.1001 #### [facility] [address] [place], [address] Cholesterol [Mass/Vol] 177 mg/dL Normal <=200 [facility] Comment on above: Result Comment: Chol esterol level, Desirable <200 mg/dL Borderline high cholesterol 200-239 mg/dL High cholesterol >=240 mg/dL Recommendations of the NCEP Adult Treatment Panel for the following risk-cutoff thresholds for the [place] population. Performed By: #### B TSPAT, L500.4050, L501.9520, L100.0100, L506.1001 #### [facility] [address] [place], [address] Cholesterol in HDL [Mass/Vol] 29 mg/dL Low [facility] Comment on above: Result Comment: Liv onal Cholesterol Education Program (NCEP) guidelines: <40 mg/dL: Low HDL-cholesterol (major risk factor for CHD) >= 60 mg/dL: High HDL-cholesterol (negative risk factor for CHD) HDL-cholesterol is affected by a number of factors, e.g. smoking, exercise, hormones, sex and age. Performed By: #### B TSPAT, L500.4050, L501.9520, L100.0100, L506.1001 #### [facility] [address] [place], [address] Cholesterol in LDL [Mass/Vol] 128 mg/dL Normal [facility] Comment on above: Result Comment: Bord vtttxz=715-367 mg/dL Higher Wijj=290 mg/dL or greater Performed By: #### B TSPAT, L500.4050, L501.9520, L100.0100, L506.1001 #### [facility] [address] [place], [address] Cholesterol in VLDL [Mass/Vol] 19 mg/dL Normal 5-[address] [facility] Comment on above: Performed By: #### B TSPAT, L500.4050, L501.9520, L100.0100, L506.1001 #### [facility] [address] [place], [address] Triglyceride [Mass/Vol] 97 mg/dL Normal [facility] Comment on above: Result Comment: The drugs N-Acetylcysteine and Metamizole may falsely depress this assay. Normal range: <150 mg/dL Borderline High: 150-199 mg/dL High: 200-499 mg/dL Very High: >500 mg/dL Performed By: #### B TSPAT, L500.4050, L501.9520, L100.0100, L506.1001 #### [facility] [address] [place], [address] MCV (mean corpuscular volume ) determinationOrdered By: Leigha Wynn on 05-17-2024 MCV (RBC) [Entitic vol] 93.5 fL 81-[address] [facility] Mean corpuscular hemoglobin (MCH) determinationOrdered By: Leigha Wynn on 05-17-2024 MCH (RBC) [Entitic mass] 31.4 pg 27.0-32.[address] [facility] Mean corpuscular hemoglobin concentration (MCHC) determinationOrdered By: Leigha Wynn on 05-17-2024 MCHC (RBC) [Mass/Vol] 33.6 g/dL 32-36 [facility] Mean platelet volume determi nationOrdered By: Leigha Wynn on 05-17-2024 Platelet mean volume (Bld) [Entitic vol] 10.8 fL 6.2-12.[address] [facility] PTH intactOrdered By: Leigha Wynn on 05-17-2024 Parathyroid Hormone (Intact) 172 pg/mL High [facility] PTHINon 05-17-2024 PTH 172 pg/mL High [facility] Comment on above: Performed By: #### L 501.5200 #### [facility] [address] [place], [address] Platelet countOrdered By: Jairo Wynn on 05-17-2024 Platelets (Bld) [#/Vol] 276 10*3/uL 150-[address] [facility] Potassium (Unsp spec) [Mass/ Vol]Ordered By: Leigha Wynn on 05-17-2024 Potassium [Moles/Vol] 4.6 mmol/L 3.3-5.1 [facility] Potassium measurement (mass/ volume)Ordered By: Leigha Wynn on 05-17-2024 Potassium (Unsp spec) [Mass/Vol] 4.6 mmol/L 3.3-5.[address] [facility] RBC Auto (Bld) [#/Vol]Ordere d By: Leigha Wynn on 05-17-2024 RBC (Bld) [#/Vol] 4.78 10*6/uL 4.2-5.4 [facility] Screening total cholesterol/ high density lipoprotein (HDL) cholesterol ratioOrdered By: Leigha Wynn on 05-17-2024 Cholesterol.total/Chol esterol in HDL [Mass ratio] 6.04 {ratio} [facility] Serum creatinine measurement (mass/volume)Ordered By: Leigha Wynn on 05-17-2024 Creatinine [Mass/Vol] 0.89 mg/dL 0.70-1.20 [facility] Serum globulin measurementOr dered By: Leigha Wynn on 05-17-2024 Globulin (S) [Mass/Vol] 2.8 g/dL 2.2-4.[address] [facility] Serum glucose measurement (m ass/volume)Ordered By: Leigha Wynn on 05-17-2024 Glucose [Mass/Vol] 91 mg/dL 70-99 [facility] Serum or plasma alanine ortiz otransferase (ALT) measurementOrdered By: Leigha Wynn on 05-17-2024 ALT [Catalytic activity/Vol] 33 U/L <[address] [facility] Serum or plasma albumin leta urement (mass/volume)Ordered By: Leigha Wynn on 05-17-2024 Albumin [Mass/Vol] 4.1 g/dL 3.5-5.0 [facility] Serum or plasma albumin/glob ulin mass ratioOrdered By: Leigha Wynn on 05-17-2024 Albumin/Globulin [Mass ratio] 1.5 {ratio} 0.9-2.[address] [facility] Serum or plasma alkaline ailyn sphatase measurementOrdered By: Leigha Wynn on 05-17-2024 ALP [Catalytic activity/Vol] 64 U/L 35-[address] [facility] Serum or plasma calcium leta urement (mass/volume)Ordered By: Leigha Wynn on 05-17-2024 Calcium [Mass/Vol] 11.4 mg/dL High 7.6-11.0 [facility] Serum or plasma cholesterol in HDL measurement (mass/volume)Ordered By: Leigha Wynn on 05-17-2024 Cholesterol in HDL [Mass/Vol] 29 mg/dL Low >[address] [facility] Comment on above: National Cholesterol Education Program (NCEP) guidelines:<40 mg/dL: Low HDL-cholesterol (major risk factor for CHD)>= 60 mg/dL: High HDL-cholesterol (negative risk factor for CHD)HDL-cholesterol is affected by a number of factors, e.g. smoking, exercise, hormones, sex and age. Serum or plasma cholesterol measurement (mass/volume)Ordered By: Leigha Wynn on 05-17-2024 Cholesterol [Mass/Vol] 177 mg/dL <201 [facility] Comment on above: Cholesterol level, D esirable <200 mg/dLBorderline high cholesterol 200-239 mg/dLHigh cholesterol >=240 mg/dLRecommendations of the NCEP Adult Treatment Panel for the following risk-cutoff thresholds for the [place] population. Serum or plasma urea nitroge n measurement (mass/volume)Ordered By: Leigha Wynn on 05-17-2024 Urea nitrogen [Mass/Vol] 24 mg/dL High 4-[address] [facility] Sodium levelOrdered By: Jerel Wynn on 05-17-2024 Sodium [Moles/Vol] 138 mmol/L 133-145 [facility] Total proteinOrdered By: Thea Wynn on 05-17-2024 Protein [Mass/Vol] 6.9 g/dL 5.9-8.4 [facility] Triglycerides measurementOrd ered By: Leigha Wynn on 05-17-2024 Triglyceride [Mass/Vol] 97 mg/dL <[address] [facility] Comment on above: The drugs N-Acetylcy steine and Metamizole may falsely depress this assay. Normal range: <150 mg/dLBorderline High: 150-199 mg/dLHigh: 200-499 mg/dLVery High: >500 mg/dL Vitamin D, 25-hydroxyOrdered By: Leigha Wynn on 05-17-2024 Vitamin D 25-Hydroxy 22.3 ng/mL Low 30-100 [facility] Comment on above: Vitamin D StatusDefi ciency: <20 ng/mL (50nmol/L)Insufficiency: 20-30 ng/mL (50-75 nmol/L)Sufficiency: 30-100 ng/mL (75-250 nmol/L)Toxicity: >100 ng/mL (>250 nmol/L) White blood cell (WBC) count Ordered By: Leigha Wynn on 05-17-2024 WBC (Bld) [#/Vol] 6.3 10*3/uL 4.4-11.0 [facility] Surgery Visit Reporton 05-01 Surgery Visit Report [facility] [address] [place] [address] OFFICE VISIT Date of Service: 05/01/24 MR#: [id number] Acct: [id number] Name: SILKE LOPEZ Rep #: [id number] : 1965 Provider: Dr. Errol santiago MD Age/Sex: 58/F Location: [facility] Status: Signed Intake Vital Signs 03/19/24 08:43 [...] History mcg (1,000 unit) capsule [facility] Medical History Thyroid eye disease Primary hyperparathyroidism Hyperparathyroidism Screening for osteoporosis Surgical History S/P D C (status post dilation and curettage) S/P appendectomy Family History Father Cancer Prostate Sister Cancer cholangiocarcinoma- Bile duct Grandfather Cancer Prostate Social History household members: spouse current occupational status: employed current occupation: [employer] Smoking Status: Never smoker alcohol intake: never [...] (more content not included)... Normal [facility] Dexa Bone Density Studyon Dexa Bone Density Study [facility] Imaging Services [address] [place] [address] Dexa Bone Density Study MR#: [id number] Acct: [id number] Name: SILKE LOPEZ Rep #: [id number] : 1965 F 58 From: Butch Kinney i DO PCP: Leigha Wynn, [employer] Status: REG CLI Study: Dexa Bone Density Study Date of Exam: 04/18/24 Exam# [id number] Ordering Dr: Salo Boles MD PROCEDURE: DEXA [...] of the [employer] [place] for Metabolic Bone Disease, World Health Organization (WHO) Collaborating [place]. 1-The 10-year probability of fracture may be lower than reported if the patient has received treatment. 2-Major Osteoporotic Fracture: Clinical Spine, Forearm, Hip or Shoulder. The T-scores are also available for review on the [facility] PACS or by accessing the [facility] electronic medical record. BD/Dexa Bone Density Study IMPRESSION: Osteopenia. Reading Location: [facility] CC: [employer] Leigha Wynn; Dr. Salo Boles MD Vaccine Customer Representative: Signed Normal [facility] Parathyroid Scanon Parathyroid scan [facility] Imaging Services [address] [place] [id number] Parathyroid Scan MR#: [id number] Acct: [id number] Name: SILKE LOPEZ Rep #: [id number] : 1965 F 58 From: Maverick Turner PCP: EDGAR Long Status: REG CLI Study: Parathyroid Scan Date of Exam: 04/09/24 Exam# [id number] Ordering Dr: Salo Boles MD PROCEDURE: PARATHYROID [...] a left inferior parathyroid adenoma. Reading Location: [id number] CC: EDGAR Wynn; Dr. Salo Boles MD Vaccine Customer Representative: Signed Normal [facility] Thyroidon 03-28-2024 Thyroid [facility] Imaging Services [address] [place] [address] [id number] Thyroid MR#: [id number] Acct: [id number] Name: SILKE LOPEZ Rep #: [id number] : 1965 F 58 From: Aris Morales MD PCP: EDGAR Long Status: REG CLI Study: Thyroid Date of Exam: 03/28/24 Exam# [id number] Ordering Dr: Salo Boles MD PROCEDURE: THYROID [...] CC: EDGAR Wynn; Dr. Salo Boles MD Vaccine Customer Representative: Signed Normal [facility] Thyroid Peroxidase ABon -2 THYR PEROX AB < 9 Normal 0-[address] [facility] Comment on above: Result Comment: Perf ormed at: - [facility] [address] [id number] Books Binder: Kyaw Bowie PhD, Phone: [phone] Performed By: #### B TSPAT, L500.4050, L501.9520, L100.0100, L506.1001 #### [facility] Laboratory [address] [place], [place], [id number] DOrdered By: Robert Boles on 03-19-2024 Vitamin D 25-Hydroxy 32.7 ng/mL [facility] Comment on above: Vitamin D 25(OH) Sta tus Range Deficiency <20 ng/mL (50nmol/L) Insufficiency 20 - 30 ng/mL (50 - 75 nmol/L) Sufficiency 30 - 100 ng/mL (75 - 250 nmol/L) Toxicity >100 ng/mL (>250 nmol/L) Calcium,Totalon 03-19-2024 CA,Total 11.9 mg/dL High 8.5-10.[address] [facility] Comment on above: Performed By: #### B TSPAT, L500.4050, L501.9520, L100.0100, L506.1006 #### [facility] Laboratory [address] [place], [place], [id number] Endocrinology Visit Reporton 03-19-2024 Endocrinology Visit Report [facility] [address] [place], [place] [address] OFFICE VISIT Date of Service: 03/19/24 MR#: [id number] Acct: [id number] Name: SILKE LOPEZ Rep #: [id number] : 1965 Provider: Samantha Urias Age/Sex: 58/F [facility] [facility] Status: Signed Intake Vital Signs 11/28/23 10:36 [...] (more content not included)... Normal [facility] Intact parathyroid hormone ( iPTH) measurementOrdered By: Salo Boles on 03-19-2024 Parathyroid Hormone (Intact) 204.1 pg/mL High 18.4-80.[address] [facility] PTHINon 03-19-2024 PTH 204.1 pg/mL High 18.4-80.[address] [facility] Comment on above: Performed By: #### B TSPAT, L500.4050, L501.9520, L100.0100, L506.1001 #### [facility] [address] [place], [place], [id number] Serum or plasma calcium leta urement (mass/volume)Ordered By: Salo Boles on 03-19-2024 Calcium [Mass/Vol] 11.9 mg/dL High 8.5-10.1 [facility] Serum or plasma thyroperoxid ase antibody assay (units/volume)Ordered By: Salo Boles on 03-19-2024 TPO Ab Qn [IU]/mL 0- [facility] Comment on above: Performed at: [employer] [address] [place] [place], [place] [id number] Director: Kyaw Bowie PhD, Phone: [phone] TPO Ab QnOrdered By: Salo lowe on 03-19-2024 Thyroid Peroxidase Antibodies < 9 IU/mL - [facility] Comment on above: Performed at: [employer] [place] [id number] Director: Kyaw Bowie PhD, Phone: [phone] Vitamin D,25 Hydroxyon 03-19 Vitamin D 25-OH 32.7 ng/mL Normal [facility] Comment on above: Result Comment: Magdalena min D 25(OH) Status Range Deficiency <20 ng/mL (50nmol/L) Insufficiency 20 - 30 ng/mL (50 - 75 nmol/L) Sufficiency 30 - 100 ng/mL (75 - 250 nmol/L) Toxicity >100 ng/mL (>250 nmol/L) Performed By: #### B TSPAT, L500.4050, L501.9520, L100.0100, L506.1001 #### [facility] [address] [place], [place], [id number] Thyroid Stim Hormone (TSH)on 01-08-2024 TSH 2.900 uIU/mL Normal 0.358-3.[address] [facility] Comment on above: Performed By: #### L 501.9520 #### [facility] [address] 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 12/29/23 1330 Date So Jamison [facility] Signature: Date (if applicable) CC: Normal [facility] PTH, INTACT AND CALCIUMon Calcium [Mass/Vol] 11.2 mg/dL High 8.6-10.4 [facility] Comment on above: Order Comment: FASTI NG:YES FASTING: YES Performed By: #### 8 837, 68772 #### [facility] [address], [address] [place] [id number] Hospital Director: Nabil Montaño MD PARATHYROID HORMONE, INTACT 155 [...] Normal High Performed By: #### 8 837, 94201 #### [facility] [address], [address] [place] [address] Hospital Director: Nabil Montaño MD VITAMIN D,25-OH,TOTAL,IAon 0 11-17-2023 [...] D, (D2,D3), LC/MS/MS is recommended: order code 21058 (patients >2yrs). See Note 1 Note 1 For additional information, please refer to http://education.Klangoo/faq/DMX110 (This link is being provided for informational/ educational purposes only.) Performed By: #### 8 837, 87663 #### [facility] [place] [address] Hospital Director: Nabil Montaño MD CBC (INCLUDES DIFF/PLT)on Basophils (Bld) [#/Vol] 0.04 10*3/uL Normal 0-200 [facility] Comment on above: Performed By: #### 6 399, 86552, 496, 7600 #### [facility] [place] [address] Hospital Director: Nabil Montaño MD Basophils/100 WBC (Bld) 0.8 % Normal [facility] Comment on above: Performed By: #### 6 399, 57732, 496, 7600 #### [facility] [place] [address] Hospital Director: Nabil Montaño MD Eosinophils (Bld) [#/Vol] 0.1 10*3/uL Normal 15-500 [facility] Comment on above: Performed By: #### 6 399, 56951, 496, 7600 #### [facility] [place] [address] Hospital Director: Nabil Montaño MD Eosinophils/100 WBC (Bld) 2.0 % Normal [facility] Comment on above: Performed By: #### 6 399, 80610, 496, 7600 #### [facility] [place] [address] Hospital Director: Nabil Montaño MD Erythrocyte distribution width (RBC) [Ratio] 13.7 % Normal 11.0-15.0 [facility] Comment on above: Performed By: #### 6 399, 78432, 496, 7600 #### [facility] of [place] [address] Hospital Director: Nabil Montaño MD Hematocrit (Bld) [Volume fraction] 48.0 % High 35.0-45.0 [facility] Comment on above: Performed By: #### 6 399, 40971, 496, 7600 #### [facility] [place] [address] Hospital Director: Nabil Montaño MD Hemoglobin (Bld) [Mass/Vol] 15.8 g/dL High 11.7-15.5 [facility] Comment on above: Performed By: #### 6 399, 26087, 496, 7600 #### [facility] [place] [address] Hospital Director: Nabil Montaño MD Lymphocytes (Bld) [#/Vol] 1.48 10*3/uL Normal 850-3900 [facility] Comment on above: Performed By: #### 6 399, 05682, 496, 7600 #### [facility] [place] [address] Hospital Director: Nabil Montaño MD Lymphocytes/100 WBC (Bld) 29.6 % Normal [facility] Comment on above: Performed By: #### 6 399, 03652, 496, 7600 #### [facility] [place] [address] Hospital Director: Nabil Montaño MD MCH (RBC) [Entitic mass] 31.5 pg Normal 27.0-33.0 [facility] Comment on above: Performed By: #### 6 399, 54313, 496, 7600 #### [facility] [place] [address] Hospital Director: Nabil Montaño MD MCHC (RBC) [Mass/Vol] 32.9 g/dL Normal 32.0-36.[address] [facility] Comment on above: Performed By: #### 6 399, 91938, 496, 7600 #### [facility] [place] [address] Hospital Director: Nabil Montaño MD MCV (RBC) [Entitic vol] 95.6 fL Normal 80.0-100.0 [facility] Comment on above: Performed By: #### 6 399, 95737, 496, 7600 #### [facility] [place] [address] Hospital Director: Nabil Montaño MD Monocytes (Bld) [#/Vol] 0.35 10*3/uL Normal 200-950 [facility] Comment on above: Performed By: #### 6 399, 89198, 496, 7600 #### [facility] [place] [address] Hospital Director: Nabil Montaño MD Monocytes/100 WBC (Bld) 7.0 % Normal [facility] Comment on above: Performed By: #### 6 399, 37670, 496, 7600 #### [facility] [place] [address] Hospital Director: Nabil Montaño MD Neutrophils (Bld) [#/Vol] 3.03 10*3/uL Normal 5623-3249 [facility] Comment on above: Performed By: #### 6 399, 34794, 496, 7600 #### [facility] [place] [address] Hospital Director: Nabil Montaño MD Neutrophils/100 WBC (Bld) 60.6 % Normal [facility] Comment on above: Performed By: #### 6 399, 69460, 496, 7600 #### [facility] [place] [address] Hospital Director: Nabil Montaño MD Platelet mean volume (Bld) [Entitic vol] 10.7 fL Normal 7.5-12.5 [facility] Comment on above: Performed By: #### 6 399, 41997, 496, 7600 #### [facility] of [address], [address] [place] [address] Hospital Director: Nabil Montaño MD Platelets (Bld) [#/Vol] 276 10*3/uL Normal 140-400 [facility] Comment on above: Performed By: #### 6 399, 14261, 496, 7600 #### [facility] of [address], [address] [place] [address] Hospital Director: Nabil Montaño MD RBC (Bld) [#/Vol] 5.02 10*6/uL Normal 3.80-5.10 [facility] Comment on above: Performed By: #### 6 399, 16367, 496, 7600 #### [facility] of [address], [address] [place] [address] Hospital Director: Nabil Montaño MD WBC (Bld) [#/Vol] 5.0 10*3/uL Normal 3.8-10.8 [facility] Comment on above: Performed By: #### 6 399, 39871, 496, 7600 #### [facility] [place] [address] Hospital Director: Nabil Montaño MD [facility] 10-27-2023 Albumin [Mass/Vol] 4.3 g/dL Normal 3.6-5.1 [facility] Comment on above: Performed By: #### 6 399, 92916, 496, 7600 #### [facility] [place] [address] Hospital Director: Nabil Montaño MD Albumin/Globulin [Mass ratio] 1.5 {ratio} Normal 1.0-2.5 [facility] Comment on above: Performed By: #### 6 399, 58688, 496, 7600 #### [facility] [place] [address] Hospital Director: Nabil Montaño MD ALP [Catalytic activity/Vol] 66 U/L Normal 37-153 [facility] Comment on above: Performed By: #### 6 399, 07214, 496, 7600 #### [facility] of [address], [address] [place] [address] Hospital Director: Nabil Montaño MD ALT [Catalytic activity/Vol] 21 U/L Normal 6-29 [facility] Comment on above: Performed By: #### 6 399, 19525, 496, 7600 #### [facility] of [address], [address] [place] [address] Hospital Director: Nabil Montaño MD AST [Catalytic activity/Vol] 17 U/L Normal 10-35 [facility] Comment on above: Performed By: #### 6 399, 34197, 496, 7600 #### [facility] [place] [address] Hospital Director: Nabil Montaño MD Bilirubin [Mass/Vol] 0.8 mg/dL Normal 0.2-1.2 [facility] Comment on above: Performed By: #### 6 399, 13674, 496, 7600 #### [facility] [place] [address] Hospital Director: Nabil Montaño MD BUN/CREATININE RATIO SEE NOTE: Normal 6-22 [facility] Comment on above: Result Comment: Not Reported: BUN and Creatinine are within reference range. Performed By: #### 6 399, 02321, 496, 7600 #### [facility] of [address], [address] [place] [address] Hospital Director: Nabil Montaño MD Calcium [Mass/Vol] 11.3 mg/dL High 8.6-10.4 [facility] Comment on above: Performed By: #### 6 399, 27520, 496, 7600 #### [facility] [place] [address] Hospital Director: Nabil Montaño MD Chloride [Moles/Vol] 107 mmol/L Normal 98-110 [facility] Comment on above: Performed By: #### 6 399, 71098, 496, 7600 #### [facility] [place] [address] Hospital Director: Nabil Montaño MD CO2 [Moles/Vol] 25 mmol/L Normal 20-32 [facility] Comment on above: Performed By: #### 6 399, 12578, 496, 7600 #### [facility] [place] [address] Hospital Director: Nabil Montaño MD Creatinine [Mass/Vol] 0.89 mg/dL Normal 0.50-1.[address] [facility] Comment on above: Performed By: #### 6 399, 26750, 496, 7600 #### [facility] [place] [address] Hospital Director: Nabil Montaño MD GFR/1.73 sq M.predicted among non-blacks MDRD (S/P/Bld) [Vol rate/Area] 75 mL/min/{1.73_m2} Normal > OR = 60 [facility] Comment on above: Performed By: #### 6 399, 32612, 496, 7600 #### [facility] [place] [address] Hospital Director: Nabil Montaño MD Globulin (S) [Mass/Vol] 2.8 g/dL Normal 1.9-3.7 [facility] Comment on above: Performed By: #### 6 399, 09615, 496, 7600 #### [facility] [place] [address] Hospital Director: Nabil Montaño MD Glucose [Mass/Vol] 89 mg/dL Normal 65-99 [facility] Comment on above: Result Comment: Fasting reference interval Performed By: #### 6 399, 13850, 496, 7600 #### [facility] [place] [address] Hospital Director: Nabil Montaño MD Potassium [Moles/Vol] 4.8 mmol/L Normal 3.5-5.[address] [facility] Comment on above: Performed By: #### 6 399, 68559, 496, 7600 #### [facility] [address], [address] [place] [address] Hospital Director: Nabil Montaño MD Protein [Mass/Vol] 7.1 g/dL Normal 6.1-8.1 [facility] Comment on above: Performed By: #### 6 399, 45496, 496, 7600 #### [facility] [address], [address] [place] [address] Hospital Director: Nabil Montaño MD Sodium [Moles/Vol] 139 mmol/L Normal 135-146 [facility] Comment on above: Performed By: #### 6 399, 48103, 496, 7600 #### [facility] [place] [address] Hospital Director: Nabil Montaño MD Urea nitrogen [Mass/Vol] 25 mg/dL Normal 7-25 [facility] Comment on above: Performed By: #### 6 399, 42399, 496, 7600 #### [facility] [place] [address] Hospital Director: Nabil Montaño MD HEMOGLOBIN A1con 10-27-2023 HEMOGLOBIN [...] change in test platforms from the [employer] Specialist to the Ivis byron c503 may have shifted HbA1c results compared to historical results. Based on laboratory validation testing conducted at [facility], the Ivis platform relative to the [...] not recommended. Performed By: #### 6 399, 73968, 496, 7600 #### [facility] [address], [address] [place] [address] Hospital Director: Nabil Montaño MD HEPATITIS C AB W/REFL TO HCV RNA, [facility] HEPATITIS C ANTIBODY Non-Reactive Normal NON-REACTIVE [facility] Comment on above: Result Comment: HCV antibody was non-reactive. There is no laboratory evidence of HCV infection. In most cases, no further action is required. However, if recent HCV exposure is suspected, a test for HCV RNA (test code 58676) is suggested. For additional information please refer to http://education.BlueCat Networks/faq/UWQ81t8 (This link is being provided for informational/ educational purposes only.) Performed By: #### 6 399, 14312, 496, 7600 #### [facility] [address], [address] [place] [address] Hospital Director: Nabil Montaño MD LIPID PANEL, [facility] 09-29 Cholesterol [Mass/Vol] 206 mg/dL High <200 [facility] Comment on above: Order Comment: FASTI NG:YES FASTING: YES Performed By: #### 6 399, 50177, 496, 7600 #### [facility] [address], [address] [place] [address] Hospital Director: Nabil Montaño MD Cholesterol in HDL [Mass/Vol] 33 mg/dL Low > OR = 50 [facility] Comment on above: Order Comment: FASTI NG:YES FASTING: YES Performed By: #### 6 399, 01020, 496, 7600 #### [facility] [address], [address] [place] [address] Hospital Director: Nabil Montaño MD Cholesterol in LDL [Mass/Vol] [...] Oscar SS et al. JOSE LUIS. 2013;310(19): 5156-4511 (http://education.Klangoo/faq/ZBC831) Performed By: #### 6 399, 03573, 496, 7600 #### [facility] [address], [address] [place] [address] Hospital Director: Nabil Montaño MD Cholesterol.total/Chol esterol in HDL [Mass ratio] 6.2 {ratio} High <5.0 [facility] Comment on above: Order Comment: FASTI NG:YES FASTING: YES Performed By: #### 6 399, 51677, 496, 7600 #### [facility] [address], [address] [place] [address] Hospital Director: Nabil Montaño MD NON HDL CHOLESTEROL 173 mg/dL (calc) High <130 [facility] Comment on above: Order Comment: FASTI NG:YES FASTING: YES Result Comment: For patients with diabetes plus 1 major ASCVD risk factor, treating to a non-HDL-C goal of <100 mg/dL (LDL-C of <70 mg/dL) is considered a therapeutic option. Performed By: #### 6 399, 44405, 496, 7600 #### [facility] [address], [address] [place] [address] Hospital Director: Nabil Montaño MD Triglyceride [Mass/Vol] 106 mg/dL Normal <150 [facility] Comment on above: Order Comment: FASTI NG:YES FASTING: YES Performed By: #### 6 399, 14110, 496, 7600 #### [facility] [address], [address] [place] [address] Hospital Director: Nabil Montaño MD 36on 09-12-2023 36 S: Pt called [facility] d/t Symptoms/Concerns: lump on stomach Provider: james daigle B: CAC RN attempted to call patient A No contact Pt last seen 02/27/2020 R: Left VM for pt to call back with any further questions or concerns. Reason for Disposition ? Message left on identified voicemail Protocols used: No Contact or Duplicate Contact [id number] Normal [facility] CR Chest PA/LATon 10-11-2018 CR Chest PA/LAT Patient Name: SILKE LOPEZ Diagnostic Radiology Exam Date/Time 10/11/2018 14:47:08 EDT Exam CR Chest PA/LAT Ordering Physician DO DAIGLE PAUL E. Accession Number [id number] CPT4 Codes 36113 () Reason For Exam . Report Indication: [...] Transcribed Date and Time: 10/11/2018 2:59 Normal [facility] XR CHEST STANDARD (2 VW)on 0 10-11-2018 Patient Name: SILKE LOPEZ ---Diagnostic Radiology--- Exam Date/Time 10/11/2018 14:47:08 EDT Exam CR Chest PA/LAT Ordering Physician DO DAIGLE PAUL E. Accession Number [id number] CPT4 Codes 11396 () Reason For Exam . Report Indication: [...] ANTHONY Transcribed Date and Time: 10/11/2018 2:[address] [facility], [place] David, [facility] Incoming Radiology Results From [facility] - 10/11/2018 2:59 PM EDT Patient Name: SILKE LOPEZ ---Diagnostic Radiology--- Exam Date/Time 10/11/2018 14:47:08 EDT Exam CR Chest PA/LAT Ordering Physician DO DAIGLE PAUL E. Accession Number [id number] CPT4 Codes 03454 () Reason For Exam . Report Indication: [...] ANTHONY Transcribed Date and Time: 10/11/2018 2:59 [place], [place] VL Venous Duplex US Lower Ex t Lefton 04-06-2017 VL Venous Duplex US Lower Ext Left Patient Name: SILKE LOPEZ Ultrasound Exam Date/Time 04/06/2017 17:12:55 EST Exam VL Venous Duplex US Lower Ext Left Ordering Physician DO DAIGLE PAUL E. Accession Number [id number] CPT4 Codes 22411 () Reason For Exam Left leg pain Report [facility] --- Left Lower Extremity Venous Duplex Report Patient Name: Slike Lopez : 1965 (51yrs) Study Date: 04/06/2017 Age: 51 Account: [id number] Gender: F Loc: BP: Ordering: Eron Daigle Technologist: Ordering Physician: Eron Daigle Power Wheelchair Mechanic: Yoana Florez RDMS T Interpreting Physician: Kyaw Delong MD --- Location: [facility] --- INDICATIONS: Pain in limb - left [...] performed. The images were obtained using a Realm vascular ultrasound machine. --- VENOUS FLOW AND [...] --+ Electronically signed by: Kyaw Delong MD [id number] Final Dictated: 04/07/2017 2:14 pm Dictating Physician: KYAW DELONG Signed Date and Time: 04/07/2017 2:13 pm Signed by: KYAW DELONG [facility] Vital Signs Date Time Vital Sign Value Performing Clinician Gabyi bianca 12-05-2024 13:44-0400 Body height 160.02 cm Leigha SCHULTZC Work Phone: [facility] 12-05-2024 13:44-0400 Body mass index (BMI) [Ratio] 38.4 kg/m2 Leigha Wynn NP-C Work Phone: [facility] 12-05-2024 13:44-0400 Body temperature 97.2 [degF] Leigha Wynn NP-C Work Phone: [facility] 12-05-2024 13:44-0400 Body weight 98.42 kg Leigha Wynn NP-C Work Phone: [facility] 12-05-2024 13:44-0400 Diastolic blood pressure 57 mm[Hg] Leigha Wynn NP-C Work Phone: [facility] 12-05-2024 13:44-0400 Heart rate 58 /min Leigha Wynn [employer]-C Work Phone: [facility] 12-05-2024 13:44-0400 Respiratory rate 17 /min Leigha Wynn [employer]C Work Phone: [facility] 12-05-2024 13:44-0400 SaO2% (BldA) [Mass fraction] 96 % Leigha Wynn [employer] Work Phone: [facility] 12-05-2024 13:44-0400 Systolic blood pressure 81 mm[Hg] Leigha Wynn [employer]-C Work Phone: [facility] 12-03-2024 11:18-0400 Body height 160.02 cm Leigha Wynn [employer]C Work Phone: [facility] 12-03-2024 11:17-0400 Body mass index (BMI) [Ratio] 38.4 kg/m2 Leigha Wynn [employer]C Work Phone: [facility] 12-03-2024 11:17-0400 Body weight 98.45 kg Leigha Wynn [employer] Work Phone: [facility] 12-03-2024 11:17-0400 Diastolic blood pressure 66 mm[Hg] Leigha Wynn [employer] Work Phone: [facility] 12-03-2024 11:17-0400 Systolic blood pressure 90 mm[Hg] Leigha Wynn [employer]C Work Phone: [facility] 11-19-2024 18:19-0400 Body temperature 96.9 [degF] Leigha Wynn [employer] Work Phone: [facility] 11-19-2024 18:19-0400 Diastolic blood pressure 59 mm[Hg] Leigha Wynn [employer] Work Phone: [facility] 11-19-2024 18:19-0400 Heart rate 50 /min Leigha Wynn [employer] Work Phone: [facility] 11-19-2024 18:19-0400 Respiratory rate 16 /min Leigha Wynn [employer] Work Phone: [facility] 11-19-2024 18:19-0400 SaO2% (BldA) [Mass fraction] 100 % Leigha Wynn [employer]C Work Phone: [facility] 11-19-2024 18:19-0400 Systolic blood pressure 106 mm[Hg] Leigha Wynn [employer] Work Phone: [facility] 11-19-2024 13:30-0400 Inhaled oxygen flow rate 4 L/min Leigha Wynn [employer] Work Phone: [facility] 11-19-2024 08:44-0400 Body height 160.02 cm Leigha Wynn [employer] Work Phone: [facility] 11-19-2024 08:44-0400 Body mass index (BMI) [Ratio] 38.6 kg/m2 Leigha Wynn [employer] Work Phone: [facility] 11-19-2024 08:44-0400 Body weight 99 kg Leigha Wynn [employer] Work Phone: [facility] 10-21-2024 10:09-0400 Body height 160.02 cm Leigha Wynn [employer] Work Phone: [facility] 10-21-2024 10:09-0400 Body mass index (BMI) [Ratio] 38.6 kg/m2 Leigha Wynn [employer] Work Phone: [facility] 10-21-2024 10:09-0400 Body weight 98.93 kg Leigha Wynn [employer] Work Phone: [facility] 10-21-2024 10:09-0400 Diastolic blood pressure 54 mm[Hg] Leigha Wynn [employer] Work Phone: [facility] 10-21-2024 10:09-0400 Systolic blood pressure 78 mm[Hg] Leigha Wynn [employer] Work Phone: [facility] 10-12-2024 13:50-0400 Body temperature 98.6 [degF] Leigha Wynn [employer] Work Phone: [facility] 10-12-2024 13:50-0400 Diastolic blood pressure 62 mm[Hg] Leigha Wynn [employer] Work Phone: [facility] 10-12-2024 13:50-0400 Heart rate 62 /min Leigha Wynn [employer] Work Phone: [facility] 10-12-2024 13:50-0400 Respiratory rate 16 /min Leigha Wynn [employer] Work Phone: [facility] 10-12-2024 13:50-0400 SaO2% (BldA) [Mass fraction] 100 % Leigha Wynn [employer] Work Phone: [facility] 10-12-2024 13:50-0400 Systolic blood pressure 96 mm[Hg] Leigha Wynn [employer] Work Phone: [facility] 10-12-2024 11:59-0400 Body mass index (BMI) [Ratio] 39.7 kg/m2 Leigha Wynn [employer] Work Phone: [facility] 10-12-2024 11:48-0400 Body height 160.02 cm Leigha Wynn [employer] Work Phone: [facility] 10-12-2024 11:48-0400 Body weight 101.85 kg Leigha Wynn [employer] Work Phone: [facility] 10-11-2024 21:00-0400 Diastolic blood pressure 67 mm[Hg] Leigha Wynn [employer] Work Phone: [facility] 10-11-2024 21:00-0400 Heart rate 48 /min Leigha Wynn [employer] Work Phone: [facility] 10-11-2024 21:00-0400 Respiratory rate 18 /min Leigha Wynn [employer] Work Phone: [facility] 10-11-2024 21:00-0400 SaO2% (BldA) [Mass fraction] 96 % Leigha Wynn [employer] Work Phone: [facility] 10-11-2024 21:00-0400 Systolic blood pressure 107 mm[Hg] Leigha Wynn [employer] Work Phone: [facility] 10-11-2024 19:30-0400 Body temperature 98.2 [degF] Leigha Wynn [employer] Work Phone: [facility] 10-11-2024 17:16-0400 Body height 160.02 cm Leigha Wynn [employer] Work Phone: [facility] 10-11-2024 17:16-0400 Body mass index (BMI) [Ratio] 39.4 kg/m2 Leigha Wynn [employer] Work Phone: [facility] 10-11-2024 17:16-0400 Body weight 101.15 kg Leigha Wynn [employer] Work Phone: [facility] 09-20-2024 15:54-0400 Body height 160.02 cm Leigha Wynn [employer] Work Phone: [facility] 09-20-2024 15:52-0400 Body mass index (BMI) [Ratio] 39.8 kg/m2 Leigha Wynn [employer] Work Phone: [facility] 09-20-2024 15:52-0400 Body weight 102.05 kg Leigha Wynn [employer] Work Phone: [facility] 09-20-2024 15:52-0400 Diastolic blood pressure 58 mm[Hg] Leigha Wynn [employer] Work Phone: [facility] 09-20-2024 15:52-0400 Systolic blood pressure 101 mm[Hg] Leigha Wynn [employer] Work Phone: [facility] 06-04-2024 13:39-0400 Body temperature 98.4 [degF] Leigha Wynn [employer] Work Phone: [facility] 06-04-2024 13:39-0400 Diastolic blood pressure 67 mm[Hg] Leigha Wynn [employer] Work Phone: [facility] 06-04-2024 13:39-0400 Heart rate 50 /min Leigha Wynn [employer] Work Phone: [facility] 06-04-2024 13:39-0400 Respiratory rate 16 /min Leigha Wynn [employer] Work Phone: [facility] 06-04-2024 13:39-0400 SaO2% (BldA) [Mass fraction] 97 % Leigha Wynn [employer] Work Phone: [facility] 06-04-2024 13:39-0400 Systolic blood pressure 106 mm[Hg] Leigha Wynn [employer] Work Phone: [facility] 06-04-2024 06:38-0400 Body height 160.02 cm Leigha Wynn [employer] Work Phone: [facility] 06-04-2024 06:38-0400 Body mass index (BMI) [Ratio] 42.5 kg/m2 Leigha Wynn [employer] Work Phone: [facility] 06-04-2024 06:38-0400 Body weight 109 kg Leigha Wynn [employer] Work Phone: [facility] 05-01-2024 08:20-0500 Body height 160.02 cm Leigha Wynn [employer] Work Phone: [facility] 05-01-2024 08:20-0500 Body mass index (BMI) [Ratio] 44.2 kg/m2 Leigha Wynn [employer] Work Phone: [facility] 05-01-2024 08:20-0500 Body weight 113.39 kg Leigha Wynn [employer] Work Phone: [facility] 05-01-2024 08:20-0500 Diastolic blood pressure 74 mm[Hg] Leigha Wynn [employer] Work Phone: [facility] 05-01-2024 08:20-0500 Heart rate 69 /min Leigha Wynn [employer] Work Phone: [facility] 05-01-2024 08:20-0500 Respiratory rate 17 /min Leigha Wynn [employer] Work Phone: [facility] 05-01-2024 08:20-0500 SaO2% (BldA) [Mass fraction] 100 % Leigha Wynn [employer] Work Phone: [facility] 05-01-2024 08:20-0500 Systolic blood pressure 109 mm[Hg] Leigha Wynn [employer] Work Phone: [facility] 03-19-2024 08:43-0500 Body mass index (BMI) [Ratio] 44.6 kg/m2 Leigha Wynn [employer] Work Phone: [facility] 03-19-2024 08:43-0500 Body weight 114.36 kg Leigha Wynn [employer] Work Phone: [facility] 03-19-2024 08:43-0500 Diastolic blood pressure 71 mm[Hg] Leigha Wynn [employer] Work Phone: [facility] 03-19-2024 08:43-0500 Heart rate 62 /min Leigha Wynn [employer] Work Phone: [facility] 03-19-2024 08:43-0500 SaO2% (BldA) [Mass fraction] 98 % Leigha Wynn [employer] Work Phone: [facility] 03-19-2024 08:43-0500 Systolic blood pressure 109 mm[Hg] Leigha Wynn [employer] Work Phone: [facility] Encounters Encounter Date Encounter Type Care Provider Facility Start: 12-20-2024 ambulatory Errol Adams Facility: [facility] Start: 12-11-2024 [facility] Start: 12-05-2024 End: 12-05-[address] Errol Adams MD -[facility] Work Phone: Start: 12-05-2024 End: 12-05-2024 ambulatory Leigha yWnn [employer] Work Phone: -[facility] Start: 12-03-2024 End: 12-03-[address] So Jmaison DO -[facility] Work Phone: Start: 12-03-2024 End: 12-03-2024 ambulatory Leigha Wynn NP-C Work Phone: -[facility] Start: 11-19-2024 ambulatory Leigha Wynn NP Facili ty:[facility] Start: 11-19-2024 Non-patient / Non-visit Dr. Reyes Jamison DO -[facility] Start: 11-19-2024 End: 11-19-2024 Admission to same day surgery center Dr. So Jamison DO -[facility] Start: 11-19-2024 End: 11-19-2024 ambulatory Leigha Wynn NP-C Work Phone: -[facility] Start: 10-21-2024 Encounter for other preprocedural examination So Yip [facility] Start: 10-21-2024 Patient encounter status Ric Wynn [employer] Work Phone: [facility] Start: 10-21-2024 End: 10-21-[address] So Jamison DO -[facility] Work Phone: Start: 10-21-2024 End: 10-21-[address] So Jamison DO [facility] Start: 10-21-2024 End: 10-21-2024 ambulatory Leigha Wynn [employer] Work Phone: -[facility] Start: 10-12-2024 Non-patient / Non-visit Dr. Latrice Rivers MD -[facility] Work Phone: Start: 10-12-2024 ambulatory Leigha Wynn [employer] Facili ty:[facility] Start: 10-12-2024 Non-patient / Non-visit Dr. Don antonio MD -[facility] Start: 10-11-2024 End: 10-12-2024 ambulatory Leigha Wynn [employer] Facility:[facility] Start: 10-11-2024 End: 10-12-2024 Evaluation and management of inpatient Dr. Maverick Mitchell DO -[facility] Work Phone: Start: 10-11-2024 End: 10-12-2024 observation encounter Leigha Wynn [employer] Work Phone: -[facility] Start: 09-20-2024 End: 09-20-[address] So Jamison DO -[facility] Work Phone: Start: 09-20-2024 End: 09-20-2024 ambulatory Leigha Wynn [employer] Work Phone: -[facility] Start: 09-20-2024 End: 09-20-2024 ambulatory Leigha Wynn [employer] Work Phone: -Laboratory Specimen Start: 09-20-2024 End: 09-20-[address] So Jamison DO -Laboratory Specimen Work Phone: Start: 09-20-2024 End: 09-20-2024 ambulatory Leigha Wynn [employer] Facility:[facility] Start: 09-03-2024 End: 09-03-2024 ambulatory Leigha Wynn [employer] Work Phone: -Laboratory Start: 09-03-2024 End: 09-03-2024 Patient encounter procedure Leigha Wynn [employer] -Laboratory Work Phone: Start: 09-03-2024 End: 09-03-2024 ambulatory Leigha Wynn [employer] Facility:[facility] Start: 07-15-2024 Non-patient / Non-visit Dr. Purnima HAUSER -[facility] Start: 07-15-2024 End: 07-15-2024 ambulatory Leigha Kingsley [employer] Work Phone: [facility] Work Phone: Start: 07-15-2024 End: 07-15-2024 Patient encounter procedure Leigha Wynn [employer] -Cardiovascular Services Work Phone: Start: 07-15-2024 End: 07-15-2024 ambulatory Leigha Kingsley [employer] Facility:[facility] Start: 06-11-2024 End: 06-11-[address] Errol Adams MD -[facility] Work Phone: Start: 06-11-2024 End: 06-11-2024 ambulatory Leigha Kingsley [employer] Work Phone: [facility] Work Phone: Start: 06-11-2024 End: 06-11-2024 ambulatory Leigha Wynn [employer] Facility:[facility] Start: 06-04-2024 ambulatory Errol Adams Facility: [facility] Start: 06-04-2024 Non-patient / Non-visit Dr. Larissa Adams MD -[facility] Start: 06-04-2024 End: 06-04-2024 Admission to same day surgery center Dr. Errol Adams MD -[facility] Start: 06-04-2024 End: 06-04-2024 ambulatory Leigha Wynn [employer] Work Phone: [facility] Work Phone: Start: 05-23-2024 End: 05-23-2024 ambulatory Leigha Wynn [employer] [facility] Start: 05-23-2024 End: 05-23-2024 Non-patient / Non-visit Dr. Maikol Sanchez MD -[facility] Work Phone: Start: 05-17-2024 End: 05-17-2024 ambulatory Leigha Wynn [employer] Work Phone: [facility] Work Phone: Start: 05-17-2024 End: 05-17-2024 Patient encounter procedure Leigha Wynn [employer] -Laboratory Work Phone: Start: 05-17-2024 End: 05-17-2024 ambulatory Leigha Wynn [employer] Facility:[facility] Start: 05-01-2024 End: 05-01-[address] Errol Adams MD -[facility] Work Phone: Start: 05-01-2024 End: 05-01-2024 ambulatory Errol Adams Facility:[facility] Start: 04-18-2024 End: 04-18-[address] Salo Boles MD -Outpatient Bone Densitometry Work Phone: Start: 04-18-2024 End: 04-18-2024 ambulatory [facility] Facility:[facility] Start: 04-09-2024 End: 04-09-[address] Salo Boles MD -Nuclear Medicine, [facility] Work Phone: Start: 04-09-2024 End: 04-09-2024 ambulatory [facility] Facility:[facility] Start: 03-28-2024 End: 03-28-[address] Salo Boles MD -Ultrasound, [facility] Work Phone: Start: 03-28-2024 End: 03-28-2024 ambulatory Salo Ramana Facility:[facility] Start: 03-19-2024 End: 03-19-[address] Salo Boles MD -Laboratory Work Phone: Start: 03-19-2024 End: 03-19-[address] Salo Boles MD -[facility] Work Phone: Start: 03-19-2024 End: 03-19-2024 ambulatory [facility] Facility:[facility] Start: 03-19-2024 End: 03-19-2024 ambulatory [facility] Facility:[facility] Start: 01-08-2024 End: 01-08-2024 ambulatory Leigha Wynn NP Facility:[facility] Start: 12-29-2023 End: 12-29-2023 ambulatory Eron Daigle Facility:[facility] Start: 09-12-2023 End: 09-12-2023 [facility]ulatory [facility] Start: 09-12-2023 End: 09-12-2023 Patient encounter procedure [facility] Start: 10-11-2018 End: 10-11-2018 Subsequent hospital visit by physician Eron Daigle Work Phone: [facility] Comment on above: Cough Start: 04-07-2017 Evaluation and management of inpatient [facility] Start: 04-06-2017 Ambulatory Eron Daigle [facility] Procedures Date Procedure Procedure Detail [...] Work Phone: Start: 06-04-2024 Parathyroidectomy Ric Wynn [employer] Work Phone: Start: 05-17-2024 Hepatitis C antibody [...] HCV Quant by PCR testing - HCVPCR #[id number] Non Reactive: < 0.8 Equivocal: >/= 0.8 to < 1.0 Reactive: >/= 1.0The CDC requires that a reactive/equivocal HCV antibody result be sent out for confirmation. HCV Quant by PCR testing. Start: 05-17-2024 Parathyroid hormone measurement Leigha Wynn [employer] Work Phone: Start: 05-17-2024 Vitamin D, 25-hydrox y measurement Leigha Wynn [employer] Work Phone: Comment on above: Vitamin D StatusDefi ciency: <20 ng/mL (50nmol/L)Insufficiency: 20-30 ng/mL (50-75 nmol/L)Sufficiency: 30-100 ng/mL (75-250 nmol/L)Toxicity: >100 ng/mL (>250 nmol/L) Start: 04-18-2024 Dual energy X-ray absorptiometry Leigha Wynn NP-C Work Phone: Start: 04-09-2024 Radioisotope scan of parathyroid Leigha Wynn [employer] Work Phone: Start: 03-28-2024 US scan of thyroid Jerel Wynn [employer] Work Phone: Start: 03-19-2024 Parathyroid hormone measurement Leigha Wynn [employer] Work Phone: Start: 03-19-2024 Vitamin D, 25-hydrox y measurement Leigha Wynn [employer] Work Phone: Comment on above: Vitamin D [...] abd w/laps nos ANESTH SURG LOWER ABDOMEN [facility] Start: 11-19-2024 Laps total hysterect 250 gm/< w/rmvl tube/ovary TLH W/T/O 250 G OR LESS [facility] Start: 11-19-2024 Repair rectocele separate procedure REPAIR OF RECTOCELE [facility] Start: 11-19-2024 Patient discharge [facility] Start: 11-19-2024 Ambulation without limitation [facility] Start: 11-19-2024 Medical regimen orders management [facility] Start: 11-19-2024 Medication education [facility] Start: 11-19-2024 Taking patient vital signs [facility] Start: 11-19-2024 Vital signs measurements [facility] Start: 11-19-[address] [facility] Start: 10-12-2024 Patient discharge [facility] Start: 10-11-2024 Application of intermittent pneumatic compression device [facility] Start: 10-11-2024 Following clinical pathway protocol [facility] Start: 10-11-2024 Aspiration precautions [facility] Start: 10-11-2024 Cardiac monitoring [facility] Start: 10-11-2024 [facility]ter[facility] Start: 10-11-[address] [facility] Start: 10-11-2024 Continuous pulse oximetry [facility] Start: 10-11-2024 Elevation of head of bed [facility] Start: 10-11-[address] [facility] Start: 10-11-2024 Notification of physician [facility] Start: 10-11-2024 [address] therapy [facility] Start: 10-11-2024 Patient referral to dietitian [facility] Start: 10-11-2024 Referral for physical therapy [facility] Start: 10-11-2024 Referral to occupational therapist [facility] Start: 10-11-2024 Referral to service [facility] Start: 10-11-2024 Speech therapy assessment [facility] Start: 10-11-2024 Telemedicine consultation with patient [facility] Start: 10-11-2024 Tobacco use cessation education [facility] Start: 10-11-2024 End: 10-11-[address] [facility] Start: 10-11-2024 Vital signs measurements [facility] Start: 10-11-2024 MRI of brain without contrast Brain without Contrast [facility] Start: 10-11-2024 Thyroid stimulating hormone measurement [facility] Start: 10-11-2024 Admission procedure [facility] Start: 10-11-2024 Hospital admission, emergency, from emergency room, medical nature [facility] Start: 10-11-2024 End: 10-11-[address] [facility] Start: 10-11-[address] [facility] Start: 10-11-[address] [facility] Start: 06-04-2024 Anes esoph thyrd larynx trach & lymph neck 1yr ANESTH NECK ORGAN 1YR/> [facility] Start: 06-04-2024 Parathyroidectomy/explorat ion parathyroids EXPLORE PARATHYROID GLANDS [facility] Start: 06-04-2024 End: 06-04-2024 Parathyroid hormone measurement [facility] Start: 06-04-2024 Patient discharge [facility] Start: 10-02-2021 Colon cancer screen colonoscopy Colon cancer screen colonoscopy [place], [place] Start: 12-12-2018 End: 12-12-2018 Office Visit 12/12/2018 Office Visit Dermatology Faustina Pat, DOWEL [employer] - [employer]CL[employer]ATION [employer]TLE [employer] [address] [facility] [address] [place] [address] [phone] [facility] Start: 10-28-2018 Influenza vaccination Flu vaccine (#1) [place], [place] Start: 02-01-2018 Breast cancer screen Breast cancer screen [place], [place] Start: 2014 Shingles Vaccine (1 of 2) Shingles Vaccine (1 of 2) [place], [place] Start: 2004 Diabetes screen Diabetes screen [place], [place] Start: 2004 Lipid screen Lipid screen [place] Start: 02-28-1997 DTaP/Tdap/Td vaccine (1 - Tdap) DTaP/Tdap/Td vaccine (1 - Tdap) [place], [place] Start: 1985 Cervical cancer screen Cervical cancer screen [place], [place] Start: 11-13-1979 HIV screen HIV screen [place], [place] Start: 1964 Hepatitis C screen Hepatitis C screen [place], [place] Amphetamines [Presen ce] in Urine by Screen method >1000 ng/mL [facility] Benzodiazepine measurement, urine [facility] CBC W Auto Different ial panel - Blood [facility] Cocaine measurement, urine [facility] Comprehensive metabo lic 1999 panel - Serum or Plasma [facility] CT Abdomen and Pelvi s W contrast IV [facility] Ethanol [Mass/volume ] in Serum or Plasma [facility] fentaNYL [Presence] in Urine by Screen method [facility] Hemoglobin A1c/Hemoglobin.total in Blood [facility] Methadone measuremen t, urine [facility] Patient referral [facility] Work Phone: Phencyclidine [Prese nce] in Urine [facility] Thyroid stimulating hormone measurement [facility] Troponin T.cardiac [Mass/volume] in Serum or Plasma by High sensitivity method [facility] Urine cannabinoid measurement [facility] Urine opiate measurement [facility] Vitamin D, 25-hydrox y measurement [facility] [facility] [place] Immunizations Immunization Date Immunization Notes Care Provider [facility]1997 tetanus and diphther ia toxoids, not adsorbed, for adult use Leigha Richmond RN [facility] Payers Date Payer Category Payer Unknown 2024 Unknown [id number] 2023 Self-pay 2023 Unknown [id number] 2014 Unknown [employer] M [employer] [address] xxxxxxxxxxxx 2014-Present [phone] [address] [place] [address] xxxxxxxxxxxx .[id number] 2004 Unknown [id number] Unknown [id number] .1.450567.3.579.2.462 Unknown [id number] .1.932548.3.579.2.462 Unknown [id number] .1.253090.3.579.2.462 Unknown [id number] 2.16.840.1.787351.3.579.2.462 Unknown [id number] 2.16.840.1.140795.3.579.2.462 Unknown [id number] 2.16.840.1.523902.3.579.2.462 Unknown [id number] 2.16.840.1.695251.3.579.2.462 Unknown [id number] 2.16.840.1.357753.3.579.2.462 Unknown [id number] 2.16.840.1.943433.3.579.2.462 Unknown [id number] 2.840.1.675426.3.579.2.462 Unknown [id number] 2.840.1.736456.3.579.2.462 Unknown [id number] 2.840.1.010038.3.579.2.462 Unknown [id number] 2.840.1.929610.3.579.2.462 Unknown [id number] 2.16.840.1.566645.3.579.2.462 Unknown [id number] 2.16840.1.065405.3.579.2.462 Unknown [id number] 2.16840.1.619496.3.579.2.462 Unknown [id number] 2.840.1.724937.3.579.2.462 Unknown [id number] 2.16.840.1.435529.3.579.2.462 Unknown [id number] 2.16.840.1.530353.3.579.2.462 Unknown [id number] 2.16.840.1.881130.3.579.2.462 Unknown [id number] 2.16.840.1.309286.3.579.2.462 Unknown [id number] 2.16840.1.206329.3.579.2.462 Unknown [id number] 2.16.840.1.889220.3.579.2.462 Unknown [id number] 2.16.840.1.692412.3.579.2.462 Unknown [id number] 2.16.840.1.859136.3.579.2.462 Unknown [id number] 2.16.840.1.974063.3.579.2.462 Unknown [id number] 2.16.840.1.006997.3.579.2.462 Unknown [id number] 2.16.840.1.642031.3.579.2.462 Unknown [id number] 2.16.840.1.509399.3.579.2.462 Social History Date Type Detail Facility Start: 10-10-2018 End: 11-05-2024 Tobacco smoking status NHIS Never smoker [facility] Start: 10-10-2018 Alcohol intake Yes [facility] Start: 06-25-2018 History SDOH Alcohol Frequency 2 [place], [place] Start: 06-25-2018 History SDOH Alcohol Std Drinks 1 [place] Start: 06-25-2018 History SDOH Social Connections [facility] 3 [place], [place] Start: 06-25-2018 History SDOH Social Connections Living [address] [place] [address] Start: 06-25-2018 History SDOH Financial 4 [place], [place] Start: 1965 Sex Assigned At Not on file [place], [place] Start: 02-27-2020 Alcoholic beverage intake Current drinker of alcohol (finding) [facility] Start: 02-27-2020 Alcoholic beverage intake [facility] Start: 03-30-2019 Non-smoker Non-smoker [facility] Start: 05-24-2024 End: 06-13-2024 Sex Female (finding) [facility] Start: 1965 Sex Assigned At Female W [facility] NEGATED: Highlighted row Not [facility] Medical Equipment Procedure Code Equipment Code Equipment Origin al Text Equipment Identifier Dates Robot-assisted total abdominal hysterectomy with bilateral salpingo-oophorectomy (JULIANA Collagen haemostatic agent, non-antimicrobial ()[id number] FDA Start: 11-19-2024 Parathyroidectomy Plant polysacc haride haemostatic agent, bioabsorbable ()[id number] [id number] FDA Start: 06-04-2024 Parathyroidectomy Ligation clip, metallic ()[id number] ()[id number] FDA Start: 06-04-2024 Goals Date Patient Goal Desired Activity /State Functional Status Date Assessment Result Facility 10-12-2024 Functional status Ambulates [facility] Work Phone: Mental Status Date Assessment Result Facility 11-19-2024 Cognitive function Voice/Name [facility] Work Phone: 10-12-2024 Cognitive function Voice/Name [facility] Work Phone: 10-11-2024 Cognitive function Level Of Cons ciousness Awake;Alert;Appropriate;Follow s Commands [facility] Work Phone: 06-04-2024 Cognitive function Level Of Cons ciousness Awake;Drowsy [facility] Work Phone: 06-04-2024 Cognitive function Voice/Name [facility] Work Phone: Clinical Notes 09-12-2023 to 12-05-2024 Note Date & Type Note Facility 12-05-2024 Progress note [facility] 12-05-2024 Progress note Note Date/Time December 05, 2024 2:17pm [facility] [address] [place] [address] OFFICE VISIT Date of Service: 12/05/24 MR#: [id number] Acct: [id number] Name: SILKE LOPEZ Rep #: [id number] : 1965 Provider: Dr. Doyle Adams MD [...] episodes of syncope relatedto bowel movements and BRIQUETTE MOLDER reported seeing bowel within the hernia. Unfortunately [...] completed. Lastly, I reiterated the request from BRIQUETTE MOLDER that patient follow-up with her PCP regardingher [...] She is followed by Leigha Wynn at [facility] and plans to followup regarding her [...] episodes of syncope relatedto bowel movements and BRIQUETTE MOLDER reported seeing bowel within the hernia. Unfortunately [...] completed. Lastly, I reiterated the request from BRIQUETTE MOLDER that patient follow-up with her PCP regardingher [...] Date (if applicable) CC: EDGAR Wynn ~ [facility] [employer] Work Phone: 1(496) 640-432409-23-2025 Consult note [facility] Medical Records Department [address] [place] [address] Anesthesia Postop Eval II 11/19/24 1509 MR#: [id number] Acct: [id number] Name: SILKE LOPEZ Rep #:[id number] : 1965 59 From: Virgie carbajal CRNA PCP: EDGAR Long Status:REG SD C Y Race: C Location: [place] [address] Anesthesia Postop Eval I Sum Postop Eval Completion status Anesthesia document: Postop Eval 1 completed: Yes Anesthesia Postop Eval I Summary Anesthesia Postop Eval I Summary: Anesthesia Postop Eval I: Assessment Summary Airway patent Yes 11/19/24 13:50 HIDE AND SKIN CLASSER.CLARKELOU Spontaneous unlabored Yes 11/19/24 13:50 HIDE AND SKIN CLASSER.CLARKELOU respirations Mental status Awake,Calm 11/19/24 13:50 HIDE AND SKIN CLASSER.JBLOU nausea No 11/19/24 13:50 HIDE AND SKIN CLASSER.JBLOU Vomiting No 11/19/24 13:50 HIDE AND SKIN CLASSER.JBLOU Anesthesia Postop Eval I: Fluid Summary Crystalloid volume administer 1,500 11/19/24 13:50 HIDE AND SKIN CLASSER.CLARKELOU (ml) Colloids volume administered ( ml) Blood Product volume administered (ml) Total IV fluid infused 1,500 11/19/24 13:50 HIDE AND SKIN CLASSER.CLARKELOU Anesthesia Postop Eval I: Summary Notes Anesthesia Complication No 11/19/24 13:50 HIDE AND SKIN CLASSER.JBLOU Anesthesia Complication Comment: Post-operative progress note Anesthesia: Postop Eval II Evaluation Mental status: Awake and Calm Pain Level: 2 nausea: No Vomiting: No Complications Anesthesia Complication: No 11/19/24 1509 kanaki HIDE AND SKIN CLASSER> Date _ Virgie Parr HIDE AND SKIN CLASSER Cosigner Signature: Date CC: ~ Signed [facility]09-23-2025 Consult note Author Virgie Parr [facility] Note Date/Time November 19, 2024 6:28pm [facility] Medical Records Department [address] [place] [address] Anesthesia Postop Eval II 11/19/24 1509 MR#: [id number] Acct: [id number] Name: SILKE LOPEZ Rep #:[id number] : 1965 59 From: Virgie carbajal CRNA PCP: Leigha Wynn NP-C Status:REG SD C Y Race: C Location: [place] [address] Anesthesia Postop Eval I Sum Postop Eval Completion status Anesthesia document: Postop Eval 1 completed: Yes Anesthesia Postop Eval I Summary Anesthesia Postop Eval I Summary: Anesthesia Postop Eval I: Assessment Summary Airway patent Yes 11/19/24 13:50 HIDE AND SKIN CLASSER.CLARKELOU Spontaneous unlabored Yes 11/19/24 13:50 HIDE AND SKIN CLASSER.JBLOU respirations Mental status Awake,Calm 11/19/24 13:50 HIDE AND SKIN CLASSER.JBLOU nausea No 11/19/24 13:50 HIDE AND SKIN CLASSER.JBLOU Vomiting No 11/19/24 13:50 HIDE AND SKIN CLASSER.JBLOU Anesthesia Postop Eval I: Fluid Summary Crystalloid volume administer 1,500 11/19/24 13:50 HIDE AND SKIN CLASSER.JBLOU (ml) Colloids volume administered ( ml) Blood Product volume administered (ml) Total IV fluid infused 1,500 11/19/24 13:50 HIDE AND SKIN CLASSER.CLARKELOU Anesthesia Postop Eval I: Summary Notes Anesthesia Complication No 11/19/24 13:50 HIDE AND SKIN CLASSER.JBLOU Anesthesia Complication Comment: Post-operative progress note Anesthesia: Postop Eval II Evaluation Mental status: Awake and Calm Pain Level: 2 nausea: No Vomiting: No Complications Anesthesia Complication: No 11/19/24 1509 <Electronically signed by Virgie sheets HIDE AND SKIN CLASSER> Date _ Virgie Parr HIDE AND SKIN CLASSER Cosigner Signature: Date CC: ~ Signed [facility] Work Phone: 1(192) 762-609209-23-2025 Consult note Author Victorino Elias [facility] Note Date/Time November 19, 2024 1:50pm [facility] Medical Records Department [address] [place] [address] Anesthesia Postop Eval I 11/19/24 1349 MR#: [id number] Acct: [id number] Name: SILKE LOPEZ Rep #:[id number] : 1965 59 From: Victorino ZAVALA PCP: EDGAR Long Status:REG SD C Y Race: C Location: [place] [address] Anesthesia: Postop Eval I Current Vital Signs [...] Victorino Elias CRNA> Date _ Victorino Elias HIDE AND SKIN CLASSER Cosigner Signature: Date CC: ~ Signed [facility] Work Phone: 1(981) 294-132109-23-2025 Discharge summary Author So Alonso [facility] Note Date/Time November 19, 2024 1:27pm [facility] Medical Records Department [address] [place] [address] Instructions for Home/Discharge Instructions 11/19/24 1003 MR#: [id number] Acct: [id number] Name: SILKE LOPEZ Rep #:[id number] : 1965 59 From: So Jamison DO [...] Consulting Providers: Amado Alvarez Instructions Print Language: Barbadian Discharge Orders/Prescriptions Prescriptions: New ibuprofen 800 mg [...] Referrals / Follow Up: Leigha Wynn NP, [employer]BER OF THE LEGISLATIVE [employer]Y-C [Primary Care Provider, Family Practice] Disposition Disposition [...] Wynn; Dr. Amado Alvarez MD ~* Signed [facility] Work Phone: 1(807) 843-805409-23-2025 Consult note [facility] Medical Records Department [address] [place] [address] Anesthesia Postop Eval I 11/19/24 1349 MR#: [id number] Acct: [id number] Name: SILKE LOPEZ Rep #:[id number] : 1965 59 From: Victorino ZAVALA PCP: MARION LongC Status:REG SD C Y Race: C Location: [place] [address] Anesthesia: Postop Eval I Current Vital Signs [...] Postop Eval 1 completed: Yes 11/19/24 1350 HIDE AND SKIN CLASSER> Date _ Victorino Elias HIDE AND SKIN CLASSER Cosigner Signature: Date CC: ~ Signed [facility]09-23-2025 Discharge summary [facility] Medical Records Department [address] [facility] [place] [address] Instructions for Home/Discharge Instructions 11/19/24 1003 MR#: [id number] Acct: [id number] Name: SILKE LOPEZ Rep #:[id number] : 1965 59 From: So Jamison DO [...] Consulting Providers: Amado Alvarez Instructions Print Language: Barbadian Discharge Orders/Prescriptions Prescriptions: New ibuprofen 800 mg [...] Referrals / Follow Up: Leigha Wynn NP, [employer]-C [Primary Care Provider, Family Practice] Disposition Disposition [...] bowel movement. 11/19/24 1327So Jamison DO cc: EDGAR Wynn; Dr. Amado Alvarez MD ~* Signed [facility]09-23-2025 Procedure note [facility] Medical Records Department [address] [place] [address] Operative Report 11/19/24 1309 MR#: [id number] Acct: [id number] Name: SILKE LOPEZ Rep #:[id number] : 1965 59 From: So Jamison DO PCP: MARION LongC Status:REG SD C Location: [place] [address] Multi Select Codes Urinary/Genital Urinary/Genital CPT Codes: 08102 Cystoscopy, 82663 [place] [address] TLH+BS/O <250gr uterus Operative Report (Standard) Operative Information Date of Procedure: 11/19/24 Pre-Operative Diagnosis: enlarged uterus, postmenopausal bleeding, endometrial hyperplasia without atypia, rectocele Post-Operative Diagnosis: enlarged uterus, postmenopausal bleeding, endometrial hyperplasia withoutatypia, rectocele Surgery/Procedure Performed: total robotic hysterectomy, bilateral salpingo- oophorectomy, cystoscopy, rectocele repair employee welfare manager: Yes Nuclear Licensing Engineer: Alanis Luevano Tasks completed by optometrist assistant: Closing, Trocar and Retracting Type of Anesthesia: [...] Alvarez MD; Dr. So Jamison DO~ Signed [facility]09-23-2025 History and physical note Author So Alonso 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 (5) Endometrial hyperplasia without atypia, [...] EDGAR Wynn; Dr. So Jamison DO~ Signed [facility] Work Phone: [phone]) 735-822509-23-2025 Consult note Author 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 Hx Hospitalization Yes: SEP 2024 11/05/24 13:07 [...] sips of water?: No PONV PONV - 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 Female Yes 11/05/24 13:07 HX of Motion [...] 11/19/24 08:44 Respiratory Assessment Respiratory Assessment - beach attendant: Respiratory Tract Infection Hx - beach attendant Hx Respiratory Tract Infection No 11/05/24 13:07 STOP Sleep Apnea STOP Sleep Apnea - beach attendant: STOP Sleep Apnea - beach attendant Hx Hypertension No 11/05/24 13:07 Hx Sleep [...] Tobacco Use History 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 Tobacco Use Smoking Status Never smoker 11/05/24 13:07 Hx Tobacco Use No 11/05/24 13:07 Years Smoking Packs Smoked per Day Smoking Cessation Date was within the last 15 years Hx Smoking Cessation Date Hx Smoking Cessation Counseling Hematologic Medial History Hematologic Hx - beach attendant: 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 Work Phone: 1(638) 850-997809-23-2025 History and physical note 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 (5) Endometrial hyperplasia without [...] EDGAR Wynn; Dr. So Jamison, DO~ Signed [facility]09-23-2025 Consult note [facility] Medical Records Department [address] [place] [address] Pre-Anesthesia Evaluation 11/19/24 0951 MR#: [id number] Acct: [id number] Name: SILKE LOPEZ Rep #:[id number] : 1965 59 From: Amado Alvarez MD PCP: EDGAR Long Status:REG SD C Y Race: C Location: [place] [address] ASA Classification* ASA Classification ASA Classification: 3 [...] RECTOCELE REPAIR Anesthesia History 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 Hx Hospitalization Yes: SEP 2024 11/05/24 13:07 [...] sips of water?: No PONV PONV - 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 Female Yes 11/05/24 13:07 HX of Motion [...] 11/19/24 08:44 Respiratory Assessment Respiratory Assessment - beach attendant: Respiratory Tract Infection Hx - beach attendant Hx Respiratory Tract Infection No 11/05/24 13:07 STOP Sleep Apnea STOP Sleep Apnea - beach attendant: STOP Sleep Apnea - beach attendant Hx Hypertension No 11/05/24 13:07 Hx Sleep [...] Tobacco Use History 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 Tobacco Use Smoking Status Never smoker 11/05/24 13:07 Hx Tobacco Use No 11/05/24 13:07 Years Smoking Packs Smoked per Day Smoking Cessation Date was within the last 15 years Hx Smoking Cessation Date Hx Smoking Cessation Counseling Hematologic Medial History Hematologic Hx - beach attendant: 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 Hx of Blood Transfusion No 11/05/24 13:07 [...] confused, unrespo /Reproduction History /Reproductive History - beach attendant: /Reproductive Hx- beach attendant Hx Now Gestational Age (in weeks): EDC: [...] mls @ 70 mls/hr 11/19/24 11:00 IV .[id number] ALCIDES Magnesium Sulfate 1 gm/ 102 mls [...] spouse current occupational status: employed current occupation: [employer] Smoking Status: Never smoker alcohol intake: never substance use type: does not use seatbelt use: always do you feel safe at home: Yes additional social history: - Socrates- Retired Review of Systems (Anesthesia) ROS Narrative System reviewed and no additional complaints, except as documented. 11/19/24 1002 mohsen HAUSER> Date _ Amado [facility]varez [facility] Signature: Date CC: ~ Signed 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 Fu (more content not included)...[facility]08-16-2025 Hospital Discharge instructionsAdditional Instructions [facility]: [facility] Phone: 1(216) 972-794408-16-2025 Discharge summary Author Merlin Rivers [facility] Note Date/Time October 12, 2024 11 :50am [facility] Medical Records Department [address] [place] [address] Discharge Summary 10/12/24 1147 MR#: [id number] Acct: [id number] Name: SILKE LOPEZ Rep #:[id number] : 1965 58 From: Merlin Turner PCP: EDGAR Long Status:ADM IN O Location: [place] [address] Providers Date of Admission: 10/11/24 Date of [...] nausea and vomiting. Give acetaminophen prn for nlwn-rg-cuvkzybv (level 1-5/10) pain or fever. Give oxycodone [...] % (Auto) 62.1, Lymph % (Auto) 27.4, [place] % (Auto) 7.1, Eos % (Auto) 2.4, [...] mass effect or midline shift. Reading [facility] Head/Neck CTA 10/11/24 19:10 IMPRESSION: Normal CTA of the head and neck. Reading Location: [id number] Medications at Discharge Home Medications glucosamine HCl [...] % (Auto) 62.1, Lymph % (Auto) 27.4, [place] % (Auto) 7.1, Eos % (Auto) 2.4, [...] mass effect or midline shift. Reading [facility] Head/Neck CTA 10/11/24 19:10 IMPRESSION: Normal CTA of the head and neck. Reading Location: [id number] Brain MRI 10/12/24 09:00 IMPRESSION: No acute intracranial abnormality. Reading Location: [id number] D/C Instructions Weight Bearing Status: Weight bearing [...] Self Care Charges/Coding Visit Charges Inpatient E&M: 17555 Disch Hosp >30min 10/12/24 1150 <Electronically signed by Merlin Rivers MD> Cosigner Signature (if applicable): CC: EDGAR Wynn; Dr. Merlin Rivers MD~ Signed [facility] Work Phone: 1(173) 921-992408-16-2025 Discharge summary Author Merlin Rivers [facility] Note Date/Time October 12, 2024 11 :47am [facility] Medical Records Department [address] [place] [address] Instructions for Home/Discharge Instructions 10/12/24 1141 MR#: [id number] Acct: [id number] Name: SILKE LOPEZ Rep #:[id number] : 1965 58 From: Merlin Turner PCP: [...] Month (Possible complicated migraine) Leigha Wynn NP, [employer]BER OF THE LEGISLATIVE [employer]Y-C [Primary Care Provider] - Within 2 Weeks [...] Easton DO; Jaky Soria MD ~ Signed [facility] Work Phone: 1(275) 307-608108-16-2025 Discharge summary [facility] Medical Records Department [address] [place] [address] Discharge Summary 10/12/24 1147 MR#: [id number] Acct: [id number] Name: SILKE LOPEZ Rep #:[id number] : 1965 58 From: Merlin Turner PCP: EDGAR Long Status:ADM IN O Location: [facility] [id number]- 1 Providers Date of Admission: 10/11/24 Date [...] B12, Folate, HgbA1c, Lipid Profile, UDS and HEIU. Give ondansetron IV prn for nausea and vomiting. Give acetaminophen prn for cmiz-zz-fjqshkaf (level 1-5/10) pain or fever. Give oxycodone [...] % (Auto) 62.1, Lymph % (Auto) 27.4, [place] % (Auto) 7.1, Eos % (Auto) 2.4, [...] mass effect or midline shift. Reading Location[facility] Head/Neck CTA 10/11/24 19:10 IMPRESSION: Normal CTA of the head and neck. Reading Location: [id number] Medications at Discharge Home Medications glucosamine HCl [...] % (Auto) 62.1, Lymph % (Auto) 27.4, [place] % (Auto) 7.1, Eos % (Auto) 2.4, [...] mass effect or midline shift. Reading [facility] Head/Neck CTA 10/11/24 19:10 IMPRESSION: Normal CTA of the head and neck. Reading Location: [id number] Brain MRI 10/12/24 09:00 IMPRESSION: No acute intracranial abnormality. Reading Location: [id number]-[id number] D/C Instructions Weight Bearing Status: Weight bearing [...] Leigha Wynn NP Consulting Providers: Horacio Lopez; Cyrsu Ball; Fay Burkett; Hina Maurice; Mahsa Farmer; [...] Month (Possible complicated migraine) Leigha Wynn NP, MEMBER OF THE LEGISL[employer]IVE [employer]-C [Primary Care Provider] - Within 2 Weeks Disposition Disposition (needs filled in before D/C Order can be placed): Home, Self Care Charges/Coding Visit Charges Inpatient E&M: 01094 Disch Hosp >30min 10/12/24 1150 Cosigner Signature (if applicable): CC: EDGAR Wynn; Dr. Merlin Rivers MD~ Signed [facility]08-16-2025 Discharge summary [facility] Medical Records Department [address] [place] [address] Instructions for Home/Discharge Instructions 10/12/24 1141 MR#: [id number] Acct: [id number] Name: SILKE LOPEZ Rep #:[id number] : 1965 58 From: Merlin Turner PCP: [...] Providers: Horacio Lopez; Cyrus Ball; Fay Burkett; Hian Maurice; Mahsa Farmer; Brown Rg; Jazmin Asher; [...] Month (Possible complicated migraine) Leigha Wynn NP, [employer]-C [Primary Care Provider] - Within 2 Weeks Disposition Disposition (needs filled in before D/C Order can be placed): Home, Self Care 10/12/24 1147Merlin Rivers MD CC: Hina Maurice; Lena Mccann; MEMBER OF THE LEGISLATIVE ASSEMBLYRandC Leigha Wynn; Jose Billingsley; MD Kailyn; Fay [...] Jorge Park MD; Dr.Vivien Luis MD; Clarissa Easton DO; Jaky Soria MD ~ Signed [facility]08-16-2025 [facility] Medical Records Department [address] [place] [address] Discharge Summary 10/12/24 1147 MR#: [id number] Acct: [id number] Name: SILKE LOPEZ Rep #: [id number] : 1965 58 From: Merlin Rivers MD PCP: EDGAR Long Status:ADM PARKER Location: [place] [address] Providers Date of Admission: 10/11/24 Date of [...] nausea and vomiting. Give acetaminophen prn for mnro-rs-cuzwircr (level 1-5/10) pain or fever. Give oxycodone [...] % (Auto) 62.1, Lymph % (Auto) 27.4, [place] % (Auto) 7.1, Eos % (Auto) 2.4, Baso % (Auto) 0.7, Absolute Neuts (auto) 3.6, Absolute Lymphs (auto) 1.59, Nucleated RBC % 0, PT 13.8, INR 1.0, APTT 34.4, Sodium 141, Potassium 4.0, Chloride 106, Carbon Dioxide 24.3, Anion Gap 11, BUN 28 H, Creatinine 0.92, Estim Creat Clear Calc 74.73, Est GFR (MDRD) Non-Af 72, BUN/Creat (more content not included)...[facility]08-16-2025 History and physical note Author Maverick Abdalla [facility] Note Date/Time October 12, 2024 5: 36am [facility] Medical Records Department [address] [place] [address] H&P Exam - Hospitalist 10/11/242013 MR#: [id number] Acct: [id number] Name: SILKE LOPEZ Rep #:[id number] : 1965 58 From: Maverick Jennings DO PCP: Leigha Wynn, [employer]-C Status:ADM IN O [facility] HPI - General General Date of [...] and OA; on glucosamine who presents to [facility] complaining of slurred speech and visual changes. [...] be less than 2 midnights. [facility] Medical History Wears glasses Arthritis Scoliosis Non-smoker [...] spouse current occupational status: employed current occupation: [employer] Smoking Status: Never smoker alcohol intake: never [...] % (Auto) 62.1, Lymph % (Auto) 27.4, [place] % (Auto) 7.1, Eos % (Auto) 2.4, [...] mass effect or midline shift. Reading Location: [facility] Assessment & Plan Assessment/Plan (1) Brain TIA: [...] nausea and vomiting. Give acetaminophen prn for sajf-ir-jjjqdmhp (level 1-5/10) pain or fever. Give oxycodone [...] 70 minutes. Charges/Coding Visit Charges OBSV E&M: 78490 Observ/hosp same date L2 10/12/24 0536 <Electronically signed by Maverick Mitchell DO> Cosigner Signature (if applicable): CC: EDGAR Wynn; Dr. Maverick Mitchell DO~ Signed [facility] Work Phone: 1(756) 118-978108-16-2025 History and physical note [facility] Medical Records Department [address] [place] [address] H&P Exam - Hospitalist 10/11/242013 MR#: [id number] Acct: [id number] Name: SILKE LOPEZ Rep #:[id number] : 1965 58 From: Maverick Jennings DO PCP: EDGAR Long Status:ADM IN O Location: [address] 1 HPI - General General Date [...] and OA; [facility]amine [facility] of slurred speech and visual [...] be less than 2 midnights. [facility] Medical History Wears glasses Arthritis Scoliosis Non-smoker [...] % (Auto) 62.1, Lymph % (Auto) 27.4, [place] % (Auto) 7.1, Eos % (Auto) 2.4, [...] mass effect or midline shift. Reading Location: [facility] Assessment & Plan Assessment/Plan (1) Brain TIA: [...] nausea and vomiting. Give acetaminophen prn for vvuf-tl-sqdidwjh (level 1-5/10) pain or fever. Give oxycodone [...] 70 minutes. Charges/Coding Visit Charges OBSV E&M: 40304 Observ/hosp same date L2 10/12/24 0536 Cosigner Signature (if applicable): CC: EDGAR Wynn; Dr. Maverick Mitchell DO~ Signed [facility]08-15-2025 Discharge summary Author Ashwin Bauman [facility] Note Date/Time October 11, 2024 8: 19pm [facility] Medical Records Department [address] [place] [address] Emergency Department Summary 10/11/24 MR#: [id number] Acct: [id number] Name: SILKE LOPEZ Rep #:[id number] : 1965 58 From: Ashwin Bauman MD [...] prediabetes. States she was at the library [id number] she started getting visual changes where she [...] soft nontender. Moving all 4 extremities. 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 Normal dorsi plantarflexion. Back nontender. Neurologically [...] % (Auto) 62.1 Lymph % (Auto) 27.4 [place] % (Auto) 7.1 Eos % (Auto) 2.4 [...] mass effect or midline shift. Reading [facility] Head/Neck CTA 10/11/24 19:10 IMPRESSION: Normal CTA of the head and neck. Reading Location: [id number] Rhythm Strip Rhythm Strip: Sinus Rhythm Rate: 62 Ectopy: None EKG Initial EKG: Attestation: I personally reviewed and interpreted this EKG as follows: Interpretation: Sinus Rhythm and No Acute Injury Pattern Comments: Normal sinus rhythm rate of 62 no acute signs of SC no ischemia nor dysrhythmia unchanged from prior EKG from April. Discharge Plan Dx/Rx/DC Orders Clinical Impression: Brain TIA, Slurred speech, Headache Disposition Disposition: Acute Care [facility] NIHSS NIHSS 1a. Level of Consciousness: [...] sensory loss 9. Best Language: 1 - Extq-xh-qwrtehee aphasia; 10. Dysarthria: 0 - Normal 11. [...] problems, contact your Primary Care Provider. Call [facility] ([phone]) or report to the closest Emergency Room. Call 911 if necessary. 10/11/242018 <Electronically signed by Ashwin Bauman MD> Cosigner Signature (if applicable): CC: EDGAR Wynn ~ Signed [facility] Work Phone: 1(140) 698-898708-15-2025 Discharge summary [facility] Medical Records Department [address] [place] [address] Emergency Department Summary 10/11/24 MR#: [id number] Acct: [id number] Name: SILKE LOPEZ Rep #:[id number] : 1965 58 From: Ashwin Bauman MD [...] prediabetes. States she was at the library [id number] she started getting visual changes where she [...] soft nontender. Moving all 4 extremities. 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 Normal dorsi plantarflexion. Back nontender. Neurologically [...] % (Auto) 62.1 Lymph % (Auto) 27.4 [place] % (Auto) 7.1 Eos % (Auto) 2.4 [...] mass effect or midline shift. Reading [facility] Head/Neck CTA 10/11/24 19:10 IMPRESSION: Normal CTA of the head and neck. Reading Location: [facility] Rhythm Strip Rhythm Strip: Sinus Rhythm Rate: 62 Ectopy: None EKG Initial EKG: Attestation: I personally reviewed and interpreted this EKG as follows: Interpretation: Sinus Rhythm and No Acute Injury Pattern Comments: Normal sinus rhythm rate of 62 no acute signs of SC no ischemia nor dysrhythmia unchangedfrom prior EKG from April. Discharge Plan Dx/Rx/DC Orders Clinical Impression: Brain TIA, Slurred speech, Headache Disposition Disposition: Acute Care [facility] NIHSS NIHSS 1a. Level of Consciousness: [...] sensory loss 9. Best Language: 1 - Vqvm-go-ptjqbwte aphasia; 10. Dysarthria: 0 - Normal 11. [...] your Primary Care Provider. Call [facility] ([phone]) or report tothe closest Emergency Room. Call 911 if necessary. 10/11/242018 Cosigner Signature (if applicable): CC: EDGAR Wynn ~ Signed [facility]08-15-2025 Radiology Diagnostic study note [facility] Imaging Services [address] [place] [address] STROKE CTA Head AND Neck W/Con MR#: [id number] Acct: [id number] Name: SILKE LOPEZ Rep #: [id number] : 1965 F 58 From: [facility] kavita Bonner MD PCP: EDGAR Long Status: REG ER Study:STROKE CTA Head AND Neck W/Con Date of Exam: 10/11/24 Exam# [id number] Ordering Dr: Олег Bauman MD PROCEDURE: STROKE [...] of the head and neck. Reading Location: [id number] CC: MEMBER OF THE LEGISLATIVE ASSEMBLYStar Wynn; Dr. Ashwin Bauman MD ~ Vaccine Customer Representative: Signed [facility]08-15-2025 Radiology Diagnostic study note [facility] Imaging Services [address] [place] [address] STROKE Brain/Head without Cont MR#: [id number] Acct: [id number] Name: SILKE LOPEZ Rep #: [id number] : 1965 F 58 From: Luigi Benito MD PCP: EDGAR Long Status: REG ER Study:STROKE Brain/Head without Cont Date of Exam: 10/11/24 Exam# [id number] Ordering Dr: Олег Bauman MD PROCEDURE: STROKE [...] mass effect or midline shift. Reading Location: [facility] CC: MEMBER OF THE LEGISLATIVE ASSEMBLYStar Wynn; Dr. Ashwin Bauman MD ~ Vaccine Customer Representative: Signed [facility]07-25-2025 Evaluation note* Diagnosis Onset Date Resolution [...] Visual disturbance acute October 11, 2024 8:51pm [facility] Work Phone: 1(781) 484-935607-25-2025 Evaluation note* Diagnosis Onset Date Resolution Status [...] with aura acute October 21, 2024 10:05am [facility] Work Phone: 1(926) 240-787907-25-2025 Evaluation note* Diagnosis Onset Date Resolution Status [...] 10:05am Obesity chronic October 21, 025 10:05am [facility] Work Phone: 1(337) 752-314407-25-2025 Evaluation note* Diagnosis Onset Date Resolution Status [...] or gangrene acute December 05, 2024 1:23pm [facility] Work Phone: 1([phone]) 983-151104-15-2025 Evaluation note* Diagnosis Onset Date Resolution Status Admit Date S/P parathyroidectomy acute May 8:48am [facility] Work Phone: [phone]) 630-683504-15-2025 Evaluation note* Diagnosis Onset Date Resolution Status Admit Date S/P parathyroidectomy acute May 8:48am Endometrial hyperplasia with out atypia, simple acute September 20, 2024 3:48pm Enlarged uterus acute August 3:48pm S/P parathyroidectomy acute Aug 3:48pm Obesity chronic September 20 3:48pm [facility] Work Phone: [phone]) 400-120104-08-2025 Consult note Author Victorino Elias [facility] Note Date/Time June 04, 2024 11:3 5am [facility] Medical Records Department [address] [place] [address] Anesthesia Postop Eval I 06/04/241133 MR#: [id number] Acct: [id number] Name: SILKE LOPEZ Rep #:[id number] : 1965 58 From: Victorino ZAVALA PCP: Leigha Wynn NP-C Status:REG SD C Y Race: C Location: [place] [address] Anesthesia: Postop Eval I Current Vital Signs [...] CRNA Cosigner Signature: Date CC: ~ Signed [facility] Work Phone: 1(403) 743-937104-08-2025 Consult note [facility] Medical Records Department [address] [place] [address] Anesthesia Postop Eval I 06/04/24 1134 MR#: [id number] Acct: [id number] Name: MARIA EUGENIAHARMONY Rep #:[id number] : 1965 58 From: Victorino ZAVALA PCP: Leigha Wynn [employer]BER [employer]-C Status:REG SD C Y Race: C Location: [place] [address] Anesthesia: Postop Eval I Current Vital Signs [...] Postop Eval 1 completed: Yes 06/04/24 113 HIDE AND SKIN CLASSER> Date _ Victorino Elias HIDE AND SKIN CLASSER Cosigner Signature: Date CC: ~ Signed [facility]04-08-2025 History and physical note Author Errol Adams [facility] Note Date/Time June 04, 2024 7:[address] [facility] Medical Records Department [address] [place] [address] History & Physical Exam 06/04/24 0713 MR#: [id number] Acct: [id number] Name: SIKLE LOPEZ Rep #:[id number] : 1965 58 From: Errol Turner PCP: MARION LongC Status:REG SD C Location: [place] [address] History and Physical Date of Admission: 06/04/24 Date of Service: 05/01/24 MR#: [id number] Acct: [id number] Name: SILKE LOPEZ Rep #: [id number] : 1965 Provider: Dr. Errol Adams MD Age/Sex: 58/F Location: [facility] Status: Signed Intake Vital Signs 03/19/2507:43 05/02/2507:20 [...] Dr. Errol Adams MD~ Signed [facility] Work Phone: 1(272) 848-895204-08-2025 Consult note Author Amado Alvarez [facility] Note Date/Time June 04, 2024 7:03 am [facility] Medical Records Department [address] [place] [address] Pre-Anesthesia Evaluation 06/04/24621 MR#: [id number] Acct: [id number] Name: SILKE LOPEZ Rep #:[id number] : 1965 58 From: Amado Alvarez MD PCP: MARION LongC Status:REG SD C Y Race: C Location: [place] [address] ASA Classification* ASA Classification ASA Classification: 3 [...] frozen section Anesthesia History 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 Hx Hospitalization No 05/21/24 11:11 Any Problems [...] sips of water?: No PONV PONV - 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 Female Yes 05/21/24 11:11 HX of Motion [...] 05/01/24 08:20 Respiratory Assessment Respiratory Assessment - beach attendant: Respiratory Tract Infection Hx - beach attendant Hx Respiratory Tract Infection No 05/21/24 11:11 STOP Sleep Apnea STOP Sleep Apnea - beach attendant: STOP Sleep Apnea - beach attendant Hx Hypertension No 05/21/24 11:11 Hx Sleep [...] Tobacco Use History 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 Work Phone: [phone]) 827-221504-08-2025 History and physical note [facility] Medical Records Department [address] [place] [address] History & Physical Exam 06/04/24 0713 MR#: [id number] Acct: [id number] Name: SILKE LOPEZ Rep #:[id number] : 1965 58 From: Errol Turner PCP: EDGAR Long Status:REG SD C Location: [place] [address] History and Physical Date of Admission: 06/04/24 Date of Service: 05/01/24 MR#: [id number] Acct: [id number] Name: SILKE LOPEZ Rep #: [id number] : 1965 Provider: Dr. Errol Adams MD Age/Sex: 58/F Location: [facility] Status: Signed Intake Vital Signs 03/19/2507:43 05/02/2507:20 [...] again to the 20s despite daily supplementation [id number]. Contacted Endo and advised to continue present dose. Procedure details and postprocedure expectations reviewed. All questions answered. Consents confirmed. Preop PTH noted. Proceed to OR for parathyroidectomy w intraop PTH monitoring as described above. 06/04/24716 Cosign Signature (if applicable): CC: EDGAR Wynn; Dr. Errol Adams MD~ Signed [facility]04-08-2025 [facility] Medical Records Department [address] [place] [address] History Physical Exam 06/04/24 07 MR#: [id number] Acct: [id number] Name: SILKE LOPEZ Rep #: [id number] : 1965 58 From: Errol Adams MD PCP: EDGAR Long Status:[facility] Location: [place] [address] History and Physical Date of Admission: 06/04/24 Date of Service: 05/01/24 MR#: [id number] Acct: [id number] Name: SILKE LOPEZ Rep #: [id number] : 1965 Provider: Dr. Errol Adams MD Age/Sex: 58/F Location: [facility] Status: Signed Intake Vital Signs 03/19/2507:43 05/02/2507:20 [...] spouse current occupational status: employed current occupation: [employer] Smoking Status: Never smoker alcohol intake: [...] heat intol (more content not included)...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 Hx Hospitalization No 05/21/24 11:11 Any Problems [...] sips of water?: No PONV PONV - 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 Female Yes 05/21/24 11:11 HX of Motion [...] 05/01/24 08:20 Respiratory Assessment Respiratory Assessment - beach attendant: Respiratory Tract Infection Hx - beach attendant Hx Respiratory Tract Infection No 05/21/24 11:11 STOP Sleep Apnea STOP Sleep Apnea - beach attendant: STOP Sleep Apnea - beach attendant Hx Hypertension No 05/21/24 11:11 Hx Sleep [...] Tobacco Use History 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 Tobacco Use Smoking Status Never smoker 05/21/24 11:11 Hx Tobacco Use No 05/21/24 11:11 Years Smoking Packs Smoked per Day Smoking Cessation Date was within the last 15 years Hx Smoking Cessation Date Hx Smoking Cessation Counseling Hematologic Medial History 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 06/04/24 0703 mohsen HAUSER> Date _ Amado Alvarez MD Cosigner Signature: Date CC: ~ Signed [facility]01-21-2025 Evaluation note* Diagnosis Onset Date Resolution Status Admit Date Primary hyperparathyroidism acute March 19, 2024 8:42am Screening for osteoporosis acute March 19, 2024 8:42am Thyroid eye disease acute 2024 8:42am Hyperparathyroidism resolved 2024 8:42am Primary hyperparathyroidism acute May 01, 2024 8:01am [facility] Work Phone: 1(497) 385-923601-21-2025 Evaluation note* Diagnosis Onset Date Resolution Status Admit Date Primary hyperparathyroidism acute March 19, 2024 8:42am Screening for osteoporosis acute March 19, 2024 8:42am Thyroid eye disease acute 2024 8:42am Hyperparathyroidism resolved 2024 8:42am Primary hyperparathyroidism acute May 01, 2024 8:01am S/P parathyroidectomy acute May 8:48am [facility] Work Phone: 1(123) 155-462907-16-2024 Telephone encounter Note* Telephone Encounter - Leigha [...] Protocols used: No Contact or Duplicate Contact [id number] [id number] Miscellaneous Notes* Telephone Encounter - Leigha [place] [...] Protocols used: No Contact or Duplicate Contact Lbic-HYDZT-KP documented in this [facility]er[facility] for referral (narrative)No reason for referral information availableWCleveland Clinic [facility] Work Phone: Summary Purpose Family History No Family History Records Found Relationship Condition Age at Onset Recorded Date/T ange father Malignant neoplasm Unknown sister Malignant neoplasm Unknown grandfather Malignant neoplasm Unknown Advance Directives No Advanced Directives Records FoundDocuments on File Type Date Recorded 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 No May 21, 2024 11:11am Advance Directive Response Recorded Date/ Time Do you have a Healthcare Power of Marine Meteorologist? No October 11, 2024 5:45pm Advance Directive Response Recorded Date/ Time Do you have a Healthcare Power of Marine Meteorologist? No October 11, 2024 10:02pm Advance Directive Response Recorded Date/ Time Do you have a Healthcare Power of Marine Meteorologist? No October 11, 2024 10:02pm Do you have a Healthcare Power of Marine Meteorologist? No November 05, 2024 1:07pm Assessments Diagnosis [...] section and content) DATE CREATED AUTHOR 08/18/2017 [facility] DATE CREATED AUTHOR AUTHOR'S ORGANIZ ATION 10/12/2018 [facility] DATE CREATED AUTHOR AUTHOR'S ORGANIZ ATION 09/15/2023 [facility] DATE CREATED AUTHOR AUTHOR'S ORGANIZ ATION 11/19/2023 [facility] DATE CREATED AUTHOR AUTHOR'S ORGANIZ ATION 12/13/2024 [facility] Reason for Visit (unrecogniz ed section and content) Reason Onset Date Comments [place] 09/12/2023 Care Teams (unrecognized sec tion and content) Java Lead Relationship Specialty Start Date End Date Eron Daigle DO [address] [place] [address] PCP - General 02/01/16 Team Status: Active Member Role Status Dates Leigha Wynn NP, MEMBER OF THE LEGISL[employer]IVE [employer]Y-C Primary Care Provider Active Team Status: Inactive Member Role Status Dates Leigha Wynn NP [employer]GIS[employer]IVE [employer]-C Primary Care Provider Active Start: March 19, 2024 End: March 19, 2024 Leigha Wynn NP, [employer] OF [employer]GIS[employer]IVE [employer]-C Referring Provider Active Start: March 19, 2024 End: March 19, 2024 Dr. Salo Boles MD Attending Provider Active Sta rt: March 19, 2024 End: March 19, 2024 Team Status: Inactive Member Role Status Dates Leigha Wynn NP [employer] OF THE LEGISLATIVE [employer]-C Primary Care Provider Active Start: March 19, 2024 End: March 19, 2024 Dr. Salo Bloes MD Attending Provider Active Sta rt: March 19, 2024 End: March 19, 2024 Dr. Salo Boles MD Referring Provider Active Sta rt: March 19, 2024 End: March 19, 2024 Team Status: Inactive Member Role Status Dates Leigha Wynn NP, [employer] Primary Care Provider Active Start: March 28, 2024 End: March 28, 2024 Dr. Salo Boles MD Attending Provider Active Sta rt: March 28, 2024 End: March 28, 2024 Dr. Salo Boles MD Referring Provider Active Sta rt: March 28, 2024 End: March 28, 2024 Team Status: Inactive Member Role Status Dates Leigha Wynn [employer], [employer] Primary Care Provider Active Start: April 09, 2024 End: April 09, 2024 Dr. Salo Boles MD Attending Provider Active Sta rt: April 09, 2024 End: April 09, 2024 Dr. Salo Boles MD Referring Provider Active Sta rt: April 09, 2024 End: April 09, 2024 Team Status: Inactive Member Role Status Dates Leigha Wynn [employer], [employer] Primary Care Provider Active Start: April 18, 2024 End: April 18, 2024 Dr. Salo Boles MD Attending Provider Active Sta rt: April 18, 2024 End: April 18, 2024 Dr. Salo Boles MD Referring Provider Active Sta rt: April 18, 2024 End: April 18, 2024 Team Status: Inactive Member Role Status Dates Leigha Wynn [employer], [employer] Primary Care Provider Active Start: May 01, 2024 End: May 01, 2024 Leigha Wynn [employer], [employer] Referring Provider Active Start: May 01, 2024 End: May 01, 2024 Dr. Errol Adams MD Attending Provider Active Start: May 01, 2024 End: May 01, 2024 Team Status: Inactive Member Role Status Dates Leigha Wynn [employer], [employer] Primary Care Provider Active Start: May 17, 2024 End: May 17, 2024 Leigha Wynn [employer], [employer] Attending Provider Active Start: May 17, 2024 End: May 17, 2024 Legiha Kingsley [employer], [employer] Referring Provider Active Start: May 17, 2024 End: May 17, 2024 Team Status: Active Member Role Status Dates Leigha Wynn [employer], [employer] Primary Care Provider Active Start: May 23, 2024 End: May 23, 2024 Dr. Maikol Sanchez MD Attending Provider Active S tart: May 23, 2024 End: May 23, 2024 Dr. Errol Adams MD Referring Provider Active Start: May 23, 2024 End: May 23, 2024 Team Status: Inactive Member Role Status Dates Leigha Wynn [employer], [employer] Primary Care Provider Active Start: June 04, 2024 End: June 04, 2024 Dr. Errol Adams MD Attending Provider Active Start: June 04, 2024 End: June 04, 2024 Dr. Errol Adams MD Referring Provider Active Start: June 04, 2024 End: June 04, 2024 Team Status: Active Member Role Status Dates Leigha Wynn [employer], [employer] Primary Care Provider Active Start: June 04, 2024 Dr. Errol Adams MD Attending Provider Active Start: June 04, 2024 Dr. Errol Adams MD Referring Provider Active Start: June 04, 2024 Dr. Errol Adams MD Other Provider Active Sta rt: June 04, 2024 Team Status: Inactive Member Role Status Dates Leigha Wynn [employer], [employer] Primary Care Provider Active Start: June 11, 2024 End: June 11, 2024 Leigha Wynn [employer], [employer] Referring Provider Active Start: June 11, 2024 End: June 11, 2024 Dr. Errol Adams MD Attending Provider Active Start: June 11, 2024 End: June 11, 2024 Team Status: Inactive Member Role Status Dates Leigha Wynn [employer], [employer] Primary Care Provider Active Start: June 11, 2024 End: June 11, 2024 Dr. Errol Adams MD Attending Provider Active Start: June 11, 2024 End: June 11, 2024 Dr. Errol Adams MD Referring Provider Active Start: June 11, 2024 End: June 11, 2024 Team Status: Inactive Member Role Status Dates Leigha Wynn [employer], [employer] Primary Care Provider Active Start: July 15, 2024 End: July 15, 2024 Leigha Kingsley [employer], [employer] Attending Provider Active Start: July 15, 2024 End: July 15, 2024 Leigha Kingsley [employer], [employer] Referring Provider Active Start: July 15, 2024 End: July 15, 2024 Team Status: Active Member Role Status Dates Leigha Wynn [employer], [employer] Primary Care Provider Active Start: July 15, 2024 Dr. Maikol Sanchez MD Attending Provider Active S tart: July 15, 2024 Team Status: Active Member Role/Relationship Status Dates Leigha Wynn [employer], [employer] Primary Care Provider Active Team Status: Inactive Member Role/Relationship Status Dates Leigha Wynn [employer], [employer] Primary Care Provider Active Start: May 17, 2024 End: May 17, 2024 Leigha Wynn [employer], [employer] Attending Provider Active Start: May 17, 2024 End: May 17, 2024 Leigha Wynn [employer], [employer] Referring Provider Active Start: May 17, 2024 End: May 17, 2024 Team Status: Active Member Role/Relationship Status Dates Leigha Wynn [employer], [employer] Primary Care Provider Active Start: May 23, 2024 End: May 23, 2024 Dr. Maikol Sanchez MD Attending Provider Active S tart: May 23, 2024 End: May 23, 2024 Dr. Errol Adams MD Referring Provider Active Start: May 23, 2024 End: May 23, 2024 Team Status: Inactive Member Role/Relationship Status Dates Leigha Wynn [employer], [employer] Primary Care Provider Active Start: June 04, 2024 End: June 04, 2024 Dr. Errol Adams MD Attending Provider Active Start: June 04, 2024 End: June 04, 2024 Dr. Errol Adams MD Referring Provider Active Start: June 04, 2024 End: June 04, 2024 Team Status: Active Member Role/Relationship Status Dates Leigha Wynn [employer], [employer] Primary Care Provider Active Start: June 04, 2024 Dr. Errol Adams MD Attending Provider Active Start: June 04, 2024 Dr. Errol Adams MD Referring Provider Active Start: June 04, 2024 Dr. Errol Adams MD Other Provider Active Sta rt: June 04, 2024 Team Status: Inactive Member Role/Relationship Status Dates Leigha Wynn [employer], [employer] Primary Care Provider Active Start: June 11, 2024 End: June 11, 2024 Leigha Wynn [employer], [employer] Referring Provider Active Start: June 11, 2024 End: June 11, 2024 Dr. Errol Adams MD Attending Provider Active Start: June 11, 2024 End: June 11, 2024 Team Status: Inactive Member Role/Relationship Status Dates Leigha Wynn [employer], [employer] Primary Care Provider Active Start: June 11, 2024 End: June 11, 2024 Dr. Errol Adams MD Attending Provider Active Start: June 11, 2024 End: June 11, 2024 Dr. Errol Adams MD Referring Provider Active Start: June 11, 2024 End: June 11, 2024 Team Status: Inactive Member Role/Relationship Status Dates Leigha Wynn [employer], [employer] Primary Care Provider Active Start: July 15, 2024 End: July 15, 2024 Leigha Wynn [employer], [employer] Attending Provider Active Start: July 15, 2024 End: July 15, 2024 Leigha Wynn [employer], [employer] Referring Provider Active Start: July 15, 2024 End: July 15, 2024 Team Status: Active Member Role/Relationship Status Dates Leigha Wynn [employer], [employer] Primary Care Provider Active Start: July 15, 2024 Dr. Maikol Sanchez MD Attending Provider Active S tart: July 15, 2024 Team Status: Inactive Member Role/Relationship Status Dates Leigha Wynn [employer], [employer] Primary Care Provider Active Start: September 03, 2024 End: September 03, 2024 Leigha Wynn [employer], [employer] Attending Provider Active Start: September 03, 2024 End: September 03, 2024 Leigha Wynn [employer], [employer] Referring Provider Active Start: September 03, 2024 End: September 03, 2024 Team Status: Active Member Role/Relationship Status Dates Leigha Wynn [employer], [employer] Primary Care Provider Active Start: May 23, 2024 End: May 23, 2024 Dr. Maikol Sanchez MD Attending Provider Active S tart: May 23, 2024 End: May 23, 2024 Dr. Errol Adams MD Referring Provider Active Start: May 23, 2024 End: May 23, 2024 Team Status: Inactive Member Role/Relationship Status Dates Leigha Wynn [employer], [employer] Primary Care Provider Active Start: June 04, 2024 End: June 04, 2024 Dr. Errol Adams MD Attending Provider Active Start: June 04, 2024 End: June 04, 2024 Dr. Errol Adams MD Referring Provider Active Start: June 04, 2024 End: June 04, 2024 Team Status: Active Member Role/Relationship Status Dates Leigha Wynn [employer], [employer] Primary Care Provider Active Start: June 04, 2024 Dr. Errol Adams MD Attending Provider Active Start: June 04, 2024 Dr. Errol Adams MD Referring Provider Active Start: June 04, 2024 Dr. Errol Adams MD Other Provider Active Sta rt: June 04, 2024 Team Status: Inactive Member Role/Relationship Status Dates Leigha Wynn [employer], [employer] Primary Care Provider Active Start: June 11, 2024 End: June 11, 2024 Leigha Wynn [employer], [employer] Referring Provider Active Start: June 11, 2024 End: June 11, 2024 Dr. Errol Adams MD Attending Provider Active Start: June 11, 2024 End: June 11, 2024 Team Status: Inactive Member Role/Relationship Status Dates Leigha Wynn [employer], [employer] Primary Care Provider Active Start: June 11, 2024 End: June 11, 2024 Dr. Errol Adams MD Attending Provider Active Start: June 11, 2024 End: June 11, 2024 Dr. Errol Adams MD Referring Provider Active Start: June 11, 2024 End: June 11, 2024 Team Status: Inactive Member Role/Relationship Status Dates Leigha Wynn [employer], [employer] Primary Care Provider Active Start: July 15, 2024 End: July 15, 2024 Leigha Wynn [employer], [employer] Attending Provider Active Start: July 15, 2024 End: July 15, 2024 Leigha Wynn [employer], [employer] Referring Provider Active Start: July 15, 2024 End: July 15, 2024 Team Status: Active Member Role/Relationship Status Dates Leigha Wynn [employer], [employer] Primary Care Provider Active Start: July 15, 2024 Dr. Maikol Sanchez MD Attending Provider Active S tart: July 15, 2024 Team Status: Inactive Member Role/Relationship Status Dates Leigha Wynn [employer], [employer] Primary Care Provider Active Start: September 03, 2024 End: September 03, 2024 Leigha Wynn [employer], [employer] Attending Provider Active Start: September 03, 2024 End: September 03, 2024 Leigha Wynn [employer], [employer] Referring Provider Active Start: September 03, 2024 End: September 03, 2024 Team Status: Inactive Member Role/Relationship Status Dates Leigha Wynn [employer], [employer] Primary Care Provider Active Start: September 20, 2024 End: September 20, 2024 Leigha Kingsley [employer], [employer]-C Referring Provider Active Start: September 20, 2024 End: September 20, 2024 Dr. So Jamison DO Attending Provider Activ e Start: September 20, 2024 End: September 20, 2024 Team Status: Inactive Member Role/Relationship Status Dates Leigha Wynn [employer], [employer] Primary Care Provider Active Start: June 04, 2024 End: June 04, 2024 Dr. Errol Adams MD Attending Provider Active Start: June 04, 2024 End: June 04, 2024 Dr. Errol Adams MD Referring Provider Active Start: June 04, 2024 End: June 04, 2024 Team Status: Active Member Role/Relationship Status Dates Leigha Wynn [employer], [employer] Primary Care Provider Active Start: June 04, 2024 Dr. Errol Adams MD Attending Provider Active Start: June 04, 2024 Dr. Errol Adams MD Referring Provider Active Start: June 04, 2024 Dr. Errol Adams MD Other Provider Active Sta rt: June 04, 2024 Team Status: Inactive Member Role/Relationship Status Dates Leigha Wynn [employer], [employer] Primary Care Provider Active Start: June 11, 2024 End: June 11, 2024 Leigha Wynn [employer], [employer]-C Referring Provider Active Start: June 11, 2024 End: June 11, 2024 Dr. Errol Adams MD Attending Provider Active Start: June 11, 2024 End: June 11, 2024 Team Status: Inactive Member Role/Relationship Status Dates Leigha Wynn [employer], [employer] Primary Care Provider Active Start: June 11, 2024 End: June 11, 2024 Dr. Errol Adams MD Attending Provider Active Start: June 11, 2024 End: June 11, 2024 Dr. Errol Adams MD Referring Provider Active Start: June 11, 2024 End: June 11, 2024 Team Status: Inactive Member Role/Relationship Status Dates Leigha Wynn [employer], [employer] Primary Care Provider Active Start: July 15, 2024 End: July 15, 2024 Leigha Wynn [employer], [employer] Attending Provider Active Start: July 15, 2024 End: July 15, 2024 Leigha Wynn [employer], [employer] Referring Provider Active Start: July 15, 2024 End: July 15, 2024 Team Status: Active Member Role/Relationship Status Dates Leigha Wynn [employer], [employer] Primary Care Provider Active Start: July 15, 2024 Dr. Maikol Sanchez MD Attending Provider Active S tart: July 15, 2024 Team Status: Inactive Member Role/Relationship Status Dates Leigha Wynn [employer], [employer] Primary Care Provider Active Start: September 03, 2024 End: September 03, 2024 Leigha Wynn [employer], [employer] Attending Provider Active Start: September 03, 2024 End: September 03, 2024 Leigha Wynn [employer], [employer]-C Referring Provider Active Start: September 03, 2024 End: September 03, 2024 Team Status: Inactive Member Role/Relationship Status Dates Leigha Wynn [employer], [employer] Primary Care Provider Active Start: September 20, 2024 End: September 20, 2024 Dr. oS Jamison DO Attending Provider Activ e Start: September 20, 2024 End: September 20, 2024 Dr. So Jamison DO Referring Provider Activ e Start: September 20, 2024 End: September 20, 2024 Team Status: Inactive Member Role/Relationship Status Dates Leigha Wynn [employer], [employer] Primary Care Provider Active Start: July 15, 2024 End: July 15, 2024 Leigha Wynn [employer], [employer] Attending Provider Active Start: July 15, 2024 End: July 15, 2024 Leigha Wynn [employer], [employer] Referring Provider Active Start: July 15, 2024 End: July 15, 2024 Team Status: Active Member Role/Relationship Status Dates Leigha Wynn [employer], [employer] Primary Care Provider Active Start: July 15, 2024 Dr. Maikol Sanchez MD Attending Provider Active S tart: July 15, 2024 Team Status: Inactive Member Role/Relationship Status Dates Leigha Wynn [employer], [employer] Primary Care Provider Active Start: September 03, 2024 End: September 03, 2024 Leigha Wynn [employer], [employer] Attending Provider Active Start: September 03, 2024 End: September 03, 2024 Leigha Wynn [employer], [employer] Referring Provider Active Start: September 03, 2024 End: September 03, 2024 Team Status: Inactive Member Role/Relationship Status Dates Leigha Wynn [employer], [employer] Primary Care Provider Active Start: September 20, 2024 End: September 20, 2024 Dr. So Jamison DO Attending Provider Activ e Start: September 20, 2024 End: September 20, 2024 Dr. So Jamison DO Referring Provider Activ e Start: September 20, 2024 End: September 20, 2024 Team Status: Inactive Member Role/Relationship Status Dates Leigha Wynn [employer], [employer] Primary Care Provider Active Start: September 20, 2024 End: September 20, 2024 Leigha Wynn [employer], [employer] Referring Provider Active Start: September 20, 2024 End: September 20, 2024 Dr. So Jamison DO Attending Provider Activ e Start: September 20, 2024 End: September 20, 2024 Team Status: Active Member Role/Relationship Status Dates Leigha Wynn [employer], [employer] Primary Care Provider Active Start: October 11, 2024 Dr. Ashwin Bauman MD Emergency Provider Active S tart: October 11, 2024 Dr. Maverick Mitchell DO Admit Provider Active Start: October 11, 2024 Dr. Maverick Mitchell DO Attending Provider Active Start: October 11, 2024 Team Status: Inactive Member Role/Relationship Status Dates Leigha Wynn [employer], [employer] Primary Care Provider Active Start: October 11, [...] 11, 2024 End: October 12, 2024 Dr. Jroge Park MD Other Provider Active St art: [...] Member Role/Relationship Status Dates Leigha Wynn NP, [employer] Primary Care Provider Active Start: October 12, 2024 Dr. Don Owen MD Attending Provider Active S tart: October 12, 2024 Team Status: Active Member Role/Relationship Status Dates Leigha Wynn [employer], [employer] Primary Care Provider Active Start: October 12, [...] Active Start: October 12, 2024 Dr. Brown Rg MD Other Provider Active Sta rt: October 12, 2024 Dr. Jazmin Asher MD Other Provider Active Start : October 12, 2024 Dr. Krzysztof Estrada MD Other Provider Active Start: October 12, 2024 Dr. Deandre Stinson MD Other Provider Active Start : October 12, 2024 Dr. Jose Armando Resendiz MD Other Provider Active Sta rt: October 12, 2024 Clarisas Easton MD Other Provider Active Start : [...] St art: October 12, 2024 Dr. Lei aCbrera MD Other Provider Active Star t: October [...] Inactive Member Role/Relationship Status Dates Leigha Wynn [employer], [employer] Primary Care Provider Active Start: October 21, 2024 End: October 21, 2024 Leigha Wynn [employer], [employer] Referring Provider Active Start: October 21, 2024 End: October 21, 2024 Dr. So Jamison DO Attending Provider Activ e Start: October 21, 2024 End: October 21, 2024 Team Status: Active Member Role/Relationship Status Dates Leigha Wynn [employer], [employer] Primary care physician Active Team Status: Inactive Member Role/Relationship Status Dates Leigha Wynn [employer], [employer] Primary care physician Active Start: September 03, 2024 End: September 03, 2024 Leigha Wynn [employer], [employer] Attending physician Active Start: September 03, 2024 End: September 03, 2024 Leigha Wynn [employer], [employer] Referring Provider Active Start: September 03, 2024 End: September 03, 2024 Team Status: Inactive Member Role/Relationship Status Dates Leigha Wynn [employer], [employer] Primary care physician Active Start: September 20, 2024 End: September 20, 2024 Dr. So Jamison DO Attending physician Acti ve Start: September 20, 2024 End: September 20, 2024 Dr. So Jamison DO Referring Provider Activ e Start: September 20, 2024 End: September 20, 2024 Team Status: Inactive Member Role/Relationship Status Dates Leigha Wynn [employer], [employer] Primary care physician Active Start: September 20, 2024 End: September 20, 2024 Leigha Wynn [employer], [employer]-C Referring Provider Active Start: September 20, 2024 End: September 20, 2024 Dr. So Jamison DO Attending physician Acti ve Start: September 20, 2024 End: September 20, 2024 Team Status: Inactive Member Role/Relationship Status Dates Leigha Wynn [employer], [employer] Primary care physician Active Start: October 11, [...] 11, 2024 End: October 12, 2024 Dr. oJse Billingsley MD Nurse Practitioner Active Start: October [...] Active Member Role/Relationship Status Dates Leigha Wynn [employer], [employer] Primary care physician Active Start: October 12, 2024 Dr. Don Owen MD Attending physician Active Start: October 12, 2024 Team Status: Active Member Role/Relationship Status Dates Leigha Wynn [employer], [employer] Primary care physician Active Start: October 12, [...] Inactive Member Role/Relationship Status Dates Leigha Wynn [employer], [employer] Primary care physician Active Start: October 21, 2024 End: October 21, 2024 Leigha Wynn [employer], [employer]-C Referring Provider Active Start: October 21, 2024 End: October 21, 2024 Dr. So Jamison DO Attending physician Acti ve Start: October 21, 2024 End: October 21, 2024 Team Status: Inactive Member Role/Relationship Status Dates Leigha Wynn [employer], [employer] Primary care physician Active Start: November 19, 2024 End: November 19, 2024 Dr. So Jamison DO Attending physician Active Start: October End: November 19, 2024 Dr. So Jamison DO Referring Provider Active Start: October End: November 19, 2024 Dr. Amado Alvarez MD Nurse Practitioner Active Start: November 19, 2024 End: November 19, 2024 Team Status: Active Member Role/Relationship Status Dates Leigha Wynn [employer], [employer] Primary care physician Active Start: November 19, 2024 Dr. So Jamison DO Attending physician Active Start: October Dr. So Jamison DO Referring Provider Active Start: October Dr. So Jamison DO Nurse Practitioner Active Start: October Dr. Amado Alvarez MD Nurse Practitioner Active Start: November 19, 2024 Team Status: Inactive Member Role/Relationship Status Dates Leigha Wynn NP, [employer] Primary care physician Active Start: December 03, 2024 End: December 03, 2024 Leigha Wynn NP, [employer] Referring Provider Active Start: December 03, 2024 End: December 03, 2024 Dr. So Jamison DO Attending physician Acti ve Start: December 03, 2024 End: December 03, 2024 Team Status: Inactive Member Role/Relationship Status Dates Leigha Wynn NP, [employer] Primary care physician Active Start: December 05, 2024 End: December 05, 2024 Leigha Wynn NP, [employer] Referring Provider Active Start: December 05, 2024 [...] BE BASED ON THE PRIMARY CLINICAL RECORDS. [employer] provides no warranty or guarantee of the accuracy or completeness of information in this document.
--- NOTE | 2024-12-20 17:19 | CT_ITS ---
EXAM: CT Abdomen and Pelvis With Intravenous Contrast CLINICAL INDICATION: CHECK ABDOMINAL HERNIA TECHNIQUE: Axial computed tomography images of the abdomen and pelvis with intravenous contrast. This CT exam was performed using one or more of the following dose reduction techniques: automated exposure control, adjustment of the mA and/or kV according to patient size, and/or use of iterative reconstruction technique. COMPARISON: No relevant prior studies available. FINDINGS: LUNG BASES: Unremarkable. No mass. No consolidation. MEDIASTINUM: Small esophageal hiatal hernia. ABDOMEN: LIVER: Hepatomegaly with fatty infiltration. GALLBLADDER AND BILE DUCTS: Unremarkable. No calcified stones. No ductal dilation. PANCREAS: Unremarkable. No mass. No ductal dilation. SPLEEN: Unremarkable. No splenomegaly. ADRENALS: Unremarkable. No mass. KIDNEYS AND URETERS: Unremarkable. No solid mass. No hydronephrosis. STOMACH AND BOWEL: Anterior ventral hernia of the lower mid abdomen containing bowels and fat. No bowel obstruction. Fecal retention in the colon consistent with constipation. No mucosal thickening. PELVIS: APPENDIX: No findings to suggest acute appendicitis. BLADDER: Unremarkable. No mass. REPRODUCTIVE: Unremarkable as visualized. ABDOMEN and PELVIS: INTRAPERITONEAL SPACE: Unremarkable. No free air. No significant fluid collection. BONES/JOINTS: Mild anterior wedging deformity of T10 vertebral body. No dislocation. SOFT TISSUES: See above. VASCULATURE: Unremarkable. No abdominal aortic aneurysm. LYMPH NODES: Unremarkable. No enlarged lymph nodes. CT/Abdomen/Pelvis WITH Contrast IMPRESSION: 1. Anterior ventral hernia of the lower mid abdomen containing bowels and fat. No bowel obstruction. 2. Mild anterior wedging deformity of T10 vertebral body. 3. Small esophageal hiatal hernia. 4. Hepatomegaly with fatty infiltration. 5. Fecal retention in the colon consistent with constipation. Reading Location: [id number]
== END | disposition home or self-care (01) ==
LOC: CT 17:09
PROVIDERS: PCP Nurse Practitioner Family; Referring Provider Surgery; Visit Provider Surgery
DX: K46.9 Unspecified abdominal hernia without obstruction or gangrene (principal)
CPT/HCPCS: 74177; Q9967

== ENCOUNTER → 2025-01-14 | Outpatient (CLI) | payer SELFPAY | END | disposition home or self-care (01) | LOC: LABSPEC 15:19 | PROVIDERS: PCP Nurse Practitioner Family; Referring Provider Surgery; Visit Provider Surgery | DX: K43.9 Ventral hernia without obstruction or gangrene (principal) | CPT/HCPCS: 87081 ==

== ENCOUNTER → 2025-02-10 | Outpatient (CLI) | payer SELFPAY | END | disposition home or self-care (01) | PROVIDERS: PCP Nurse Practitioner Family; Referring Provider Student in an Organized Health Care Education/Training Program; Visit Provider Student in an Organized Health Care Education/Training Program | DX: R00.1 Bradycardia, unspecified (principal); I95.9 Hypotension, unspecified | CPT/HCPCS: 93225; 93226 ==